=== PATIENT | female | born 1980 | race Caucasian/White ===

== ENCOUNTER → 2022-06-20 | Outpatient (CLI) | payer MEDICAID, SELFPAY ==
[2022-06-20 17:48] LABS: Absolute Lymphocyte Count 3.12 X10^3/uL (0.83-4.51); Absolute Neutrophil Count 4.9 X10^3/uL (2.0-7.7); Basophil# 0.05 X10^3/uL; Basophil% 0.5 % (0-1); Eosinophil# 0.28 X10^3/uL; Hematocrit 43.3 % (37-47); Lymphocyte # 3.12 X10^3/ul (0.83-4.51); Lymphocyte % 33.8 % (19-41); Mean Corp Hgb Conc 32.3 g/dL (32-36); Mean Platelet Vol. 11.3 fl (6.2-12.0); Monocyte# 0.83 X10^3/uL; NRBC Flagged by Analyzer 0 % (0-5); Neutrophil # 4.88 X10^3/uL (2.7-7.7); Platelet Count 300 K/mm3 (150-450); RBC Distribution Width CV 13.3 % (11.6-14.6); RBC Distribution Width SD 47.5 fl (35.1-43.9); Red Blood Count 4.51 M/mm3 (4.2-5.4); White Blood Count 9.2 K/mm3 (4.4-11.0)
[2022-06-20 18:36] LABS: ALB/GLOB Ratio 0.9 RATIO (0.9-2.4); AST(SGOT) 34 U/L (15-37); Alanine Aminotransfer ALT/SGPT 36 U/L (13-56); Albumin, Serum 3.7 g/dL (3.2-5.0); Alkaline Phosphatase 77 U/L (45-117); Anion Gap 5 (5-15); BUN 14 mg/dL (7-18); BUN/Creat Ratio 19.5 RATIO (10-20); Calcium,Total 9.3 mg/dL (8.5-10.1); Chloride 110 mmol/L (98-107); Creatinine, Serum 0.72 mg/dL (0.55-1.02); EST Glomerular Filtration Rate 94 mL/min (>60); Est Glom Filt Rate - Afr Amer 114 mL/min (>60); Glucose 98 mg/dL (74-106); Protein, Total 7.7 g/dL (6.4-8.2); Sodium Level 140 mmol/L (136-145)
[2022-06-23 19:06] LABS: HCV Quant. RNA PCR HCV Not Detected IU/mL (.)
== END | disposition home or self-care (01) ==
LOC: MFPLAB 14:47
PROVIDERS: PCP Family Medicine; Referring Provider Family Medicine; Visit Provider Family Medicine
DX: B18.2 Chronic viral hepatitis C (principal)
CPT/HCPCS: 36415; 80053; 85025; 87522; 87902

== ENCOUNTER → 2022-07-03 | Outpatient (CLI) | payer MEDICAID, SELFPAY ==
[2022-07-05 19:07] LABS: HCV Quant. RNA PCR HCV Not Detected IU/mL (.)
== END | disposition home or self-care (01) ==
LOC: MFPLAB 14:07
PROVIDERS: PCP Family Medicine; Visit Provider Family Medicine
DX: B18.2 Chronic viral hepatitis C (principal)
CPT/HCPCS: 36415; 87522

== ENCOUNTER → 2022-07-30 | Outpatient (CLI) | payer MEDICAID, SELFPAY ==
--- NOTE | 2022-07-31 05:45 | PFTCOMP_ITS ---
COMPLETE PULMONARY FUNCTION TEST INTERPRETATION Brief HPI: Patient is a 42-year-old female, currently under the care of Sofy Hampton, who presents to [facility] for complete pulmonary function tests secondary to diagnosis of asthma. Respiratory therapist reports good effort and reproducible results. Interpretation: Forced expiration spirometry shows no large airways obstructive ventilatory defect with an FEV1 of 85% predicted. There is no significant bronchodilator response by strict ATS criteria. Spirograms are of good quality and plateau normally. The respiratory flow volume loop shows a normal pattern. Lung volumes by body plethysmography show a normal total lung capacity at 5.67 L, 97% predicted. All other lung volumes are within normal limits. Diffusion capacity by carbon monoxide is normal at 115% predicted. The airway resistance is slightly elevated. No previous pulmonary function tests were available for review. Impression: These pulmonary function tests are grossly within normal limits.
== END | disposition home or self-care (01) ==
PROVIDERS: PCP Family Medicine; Referring Provider Family Medicine; Visit Provider Family Medicine
DX: J45.909 Unspecified asthma, uncomplicated (principal)
CPT/HCPCS: 94060; 94726; 94729

== ENCOUNTER 2023-12-28 22:05 | Emergency (ER) | payer BC, MEDICAID, SELFPAY ==
[2023-12-28 22:07] VITALS: BP 152/79; PULSE 75; RESP 16; TEMP 37; O2SAT 97; BMI 22.8
--- NOTE | 2023-12-28 22:34 | ED.VIS.LOWEX ---
HPI History of Present Illness Chief Complaint: Wound Narrative Narrative: 43-year-old female past medical history of heroin addiction undergoing Suboxone treatment, presents with redness and swelling to her right thigh on the lateral aspect. She states she has had this intermittently over the last few months. She went to her primary care provider and they put her on a round of antibiotics which cleared it up. It returned a month later, so she received a second dose of antibiotics. She states that it resolved after that, and she last took antibiotics approximately 1 month ago. Over the last week, she has had continued use of heroin and injecting into her legs. She states she has not injected into the site for quite some time but is unsure. She presents with reported subjective fever, and redness to the lateral hospital SPECT of her right thigh. [facility] Medical History Anxiety Substance abuse Depression Home Medications ?Medication ?Instructions ?Recorded ?Last Taken ?Type albuterol sulfate 90 mcg/actuation 1 puff inhalation Q6H PRN PRN 02/27/13 Unknown History aerosol inhaler (Ventolin HFA) Wheezing fluticasone 250 mcg-salmeterol 50 1 puff inhalation BID 02/27/13 07/21/13 08:00 History mcg/dose blistr powdr for inhalation (Advair Diskus) sumatriptan succinate 50 mg tablet 50 mg PO .X1 PRN 07/23/13 Unknown History ondansetron 4 mg disintegrating 4 mg PO Q6H PRN PRN Nausea #10 tabs 03/27/14 Unknown Rx tablet Ibuprofen [Motrin] 800 mg PO TID PRN PRN Pain #15 tabs 04/27/14 Unknown Rx camphor-methyl salicylate-menthol 1 ea TP BID PRN Pain ##10 04/27/14 Unknown Rx topical patch (Salonpas topical patch) amoxicillin 875 mg-potassium 1 tab PO BID #20 tabs 12/28/23 Unknown Rx clavulanate 125 mg tablet Allergy/AdvReac Type Severity Reaction Status Date / Time hydromorphone HCl (From AdvReac Itching Verified 04/27/14 09:46 Dilaudid) Family History no significant family his Social History Smoking Status: Current every day smoker tobacco type: cigarettes ROS ROS ED ROS Narrative Constitutional: Reported fever, no chills. HEENT: No sore throat. No neck pain. No loss of vision. No rhinorrhea. Cardiovascular: No chest pain. No palpitations. No pedal edema. Respiratory: No cough, no shortness of breath. Abdominal: No abdominal pain. Positive nausea and vomiting when withdrawing from heroin. Genitourinary: No dysuria. No hematuria. Musculoskeletal: No myalgias. No arthralgias. Neurologic: No headaches. No dizziness. No lightheadedness. Skin: No rash. Positive redness lateral right thigh. Multiple areas on bilateral legs of skin excoriation and itching with some areas red. Psychiatric: No depression. No anxiety. EXAM Physical Exam Narrative Exam Narrative: Afebrile. Vital signs noted. Regular rate and rhythm. Lungs are clear to auscultation bilaterally. Abdomen soft and nontender with normoactive bowel sounds. Inspection of the right thigh does reveal an erythematous area with a central area of excoriation, no fluctuance. She has full range of motion of her joints. There are multiple areas on her bilateral legs that appear excoriated, some with minimal surrounding erythema. Const Vital Signs: 12/28/23 22:07 12/28/23 22:51 Temperature 98.6 F 98.6 F Temperature Source Temporal Pulse Rate 75 77 Respiratory Rate 16 16 Blood Pressure 152/79 H 152/79 H Blood Pressure Mean 103 103 Pulse Ox 97 98 Oxygen Delivery Method Room Air MDM MDM MDM Narrative Medical decision making narrative: Patient is already undergoing outpatient detox from heroin and she states she has a Suboxone. Earlier this morning, she was having nausea and vomiting but was unsure if she should take her Suboxone. She did last inject heroin earlier this afternoon. Regarding her right thigh, I feel this is more of a cellulitis, I do not feel she has a drainable abscess. I have very low suspicion for DVT or superficial thrombophlebitis. She does not have swelling of her inner thigh or her entire legs so I do not think DVT, there is no palpable superficial venous thrombosis. She states that she was placed on Augmentin previously and cephalexin twice a day. She was given her first dose of Augmentin here in the emergency department and prescription written to take twice a day for the next 10 days. She will follow-up with her primary care provider. Return instructions to the emergency department were reviewed. Disposition is discharged home in stable condition. History & Record Review Discussion w/independent historian: Patient Discharge Plan Triage Chief Complaint: Wound ED Provider: Mich Breaux Dx/Rx/DC Orders Clinical Impression: Cellulitis of right thigh, Heroin addiction Instructions: ED Cellulitis, ED Opiate Abuse Prescriptions: New amoxicillin-pot clavulanate 875-125 mg tablet 1 tab PO BID Qty: 20 0RF No Action fluticasone propion-salmeterol [Advair Diskus] 1 PUFF inhaler 1 puff inhalation BID Patient Comments: asthma albuterol sulfate [Ventolin HFA] 1 INHALER inhaler 1 puff inhalation Q6H PRN PRN (Reason: Wheezing) Patient Comments: asthma sumatriptan succinate 50 MG tablet 50 mg PO .X1 PRN ondansetron 4 MG tablet 4 mg PO Q6H PRN PRN (Reason: Nausea) Qty: 10 0RF camphor-methyl salicyl-menthol [Salonpas] 1 EACH adhesive patch,medicated 1 ea TP BID PRN (Reason: Pain) Qty: 10 0RF Ibuprofen [Motrin] 800 MG tablet 800 mg PO TID PRN PRN (Reason: Pain) Qty: 15 0RF Stand Alone Forms: ED Work / School Excuse Primary Care Provider: Noni Pablo Activity Restrictions/Additional Instructions: Take antibiotics as directed. Follow-up with your primary care provider. Return with sustained high fever, increased redness of your legs, new or worsening symptoms. Continue your Suboxone as previously directed. Print Language: Danish Disposition Disposition: Home, Self Care Discharge Date/Time: 12/28/23 22:52
[2023-12-28] MEDS: Amox/Clavulanate 875 MG Tablet PO (22:38)
[2023-12-28 22:51] VITALS: BP 152/79; PULSE 77; RESP 16; TEMP 37; O2SAT 98
== END 2023-12-28 22:52 | disposition home or self-care (01) ==
LOC: ED 22:49
PROVIDERS: Emergency Provider Emergency Medicine; PCP Family Medicine; Visit Provider Emergency Medicine
DX: L03.115 Cellulitis of right lower limb (principal); F11.10 Opioid abuse, uncomplicated; F17.210 Nicotine dependence, cigarettes, uncomplicated
CPT/HCPCS: 99282

== ENCOUNTER 2024-06-23 10:08 | Outpatient (RCR) | payer MEDICAID, SELFPAY ==
[2024-06-23 10:28] VITALS: BP 132/98; PULSE 83; RESP 16; TEMP 36.3; BMI 24.6
--- NOTE | 2024-06-23 12:05 | WC ---
Multiple wounds to both legs, collagen hydrogel and 4x4 gauze applied to all sores.
--- NOTE | 2024-06-23 15:00 | WC ---
PHOTO 06/23/2024 BLE
--- NOTE | 2024-06-23 15:03 | WC ---
PHOTO 06/23/24 RIGHT LATERAL CALF
--- NOTE | 2024-06-23 15:04 | WC ---
PHOTO 06/23/24 RIGHT LOWER [place] CLUSTER
--- NOTE | 2024-06-23 15:04 | WC ---
PHOTO 06/23/24 RIGHT LATERAL CALF
--- NOTE | 2024-06-23 15:06 | WC ---
PHOTO RIGHT SUP [place] 06/23/24
--- NOTE | 2024-06-23 15:06 | WC ---
PHOTO 06/23/24 RIGHT [facility] KNEE
--- NOTE | 2024-06-23 15:07 | WC ---
PHOTO 06/23/24 RIGHT LATERAL KNEE
--- NOTE | 2024-06-23 15:08 | WC ---
PHOTO 06/23/24 RIGHT LATERAL LOWER THIGH
--- NOTE | 2024-06-23 15:08 | WC ---
PHOTO 06/23/24 RIGHT THIGH
--- NOTE | 2024-06-23 15:09 | WC ---
PHOTO RIGHT SUP THIGH
--- NOTE | 2024-06-23 15:10 | WC ---
PHOTO 06/23/24 LEFT LATERAL [place]
--- NOTE | 2024-06-23 15:10 | WC ---
PHOTO 06/23/24 LEFT UPPER [place] CLUSTER
--- NOTE | 2024-06-23 15:11 | WC ---
PHOTO 06/23/24 LEFT LATERAL KNEE
--- NOTE | 2024-06-23 15:11 | WC ---
PHOTO 06/23/24 LEFT SUPER[facility] KNEE
--- NOTE | 2024-06-23 15:12 | WC ---
PHOTO 06/23/24 LEFT LATERAL THIGH
--- NOTE | 2024-06-23 15:13 | WC ---
PHOTO 06/23/24 LEFT [facility]
--- NOTE | 2024-06-23 15:13 | WC ---
PHOTO 06/23/24 LEFT [facility] CALF
--- NOTE | 2024-06-23 15:14 | WC ---
PHOTO 06/23/24 LEFT [facility] CALF
--- NOTE | 2024-06-27 18:32 | PCM.WC.HP ---
History of Present Illness Date of Service: 06/23/24 Chief Complaint: Multiple necrotic ulcerations in the lower extremities bilaterally History of Wound: This is a 44-year-old female who presented with multiple necrotic ulcerations in both lower extremities. She states that these have been present for several months. She stated that she had been evaluated recently at the [facility] by Dr. Boni Lambert, a specialist in cardiovascular medicine. The patient stated that she has had similar ulcerations on her upper extremities, but these have subsequently healed. The patient has a history of heroin addiction, and admits to injecting heroin for several years in the past, though claims to have overcome her addiction as of January 2024. When questioned, she indicated that her usual sites of injection wearing her arms, but that she had also occasionally used injection sites in her legs. The patient describes a hospitalization approximately 1 year ago, the description of which suggests she was treated for septicemia/sepsis. The patient also admits to smoking approximately 7 cigarettes/day. She also vapes. 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 Tobacco abuse counseling Anxiety Substance abuse Depression Home Medications ?Medication ?Instructions ?Recorded ?Last Taken ?Type albuterol sulfate 90 mcg/actuation 1 puff inhalation Q6H PRN PRN 02/27/13 Unknown History aerosol inhaler (Ventolin HFA) Wheezing sumatriptan succinate 50 mg tablet 50 mg PO .X1 PRN 07/23/13 Unknown History buspirone 5 mg tablet 5 mg PO TID 06/23/24 Unknown History clonidine HCl 0.1 mg tablet 0.1 mg PO BID 06/23/24 Unknown History escitalopram oxalate 20 mg tablet 20 mg PO DAILY 06/23/24 Unknown History polyethylene glycol 3350 17 17 g PO QWEEK PRN constipation 06/23/24 Unknown History gram/dose oral powder telmisartan 40 mg tablet 20 mg PO DAILY 06/23/24 Unknown History zolpidem 5 mg tablet 5 mg PO QHS 06/23/24 Unknown History Allergy/AdvReac Type Severity Reaction Status Date / Time hydromorphone HCl (From AdvReac Itching Verified 06/23/24 11:24 Dilaudid) Surgical History History of D&C History of tonsillectomy Social History Smoking Status: Current every day smoker tobacco type: cigarettes Vital Signs Vital Signs Vital Signs: Weight Weight: 162 lb Body Mass Index (BMI) 24.6 Physical Exam Const alert, oriented x3, no apparent distress, average body habitus, no limitations and well nourished Constitutional Narrative: The patient's BMI is 24.6. General Appearance: cooperative, comfortable and well developed Orientation / Consciousness: awake, oriented to person, oriented to place and oriented to time Exam Limitations: no limitations HEENT normocephalic and head/scalp atraumatic Head and Scalp: normal to inspection, normocephalic and atraumatic Face and Sinus: normal facial exam Nose: external nose normal External Ear: external ears normal Eyes EOMs intact bilaterally General Eye: normal appearance of both eyes Resp normal respiratory effort, normal air movement, no retractions and no use of accessory muscles Effort and Inspection: able to speak in complete sentences Extremity no calf tenderness General Extremity: Negative for clubbing or cyanosis Skin Wound Narrative: Numerous ulcerations are noted in both lower extremities. They are generally small in size. Most appear to extend through all layers of the dermis and into the subcutaneous tissues. Most demonstrate frankly necrotic tissue within. Many demonstrate a rim of erythema, suggestive of cellulitis. Ulcer margins are generally not well beveled. Dimensions and locations of the ulcerations are documented elsewhere. Photographic documentation has also been undertaken. Hair: normal Neuro oriented x3, CN's II-XII intact bilaterally, moves all extremities, no focal motor deficits and no sensory deficits noted Sensorium / Orientation: awake, alert, oriented to person, oriented to place, oriented to time and orientation impaired Speech: speech normal Psych Appearance: grossly normal and appropriate Attitude: calm Activity / Motor Behavior: appropriate eye contact Speech: normal speech Mood & Affect: euthymic mood Thought Process: normal thought process Thought Content: normal thought content Attention / Concentration: attention grossly intact Debridement Note Debridement Note Wound debrided: Right lower extremity ulcerations Laterality: Right Type of Debridement: Excisional debridement Anesthesia Used: 5% Lidocaine Gel and Cetacaine Depth: Down to and including healthy tissue and in the subcutaneous layer Percentage of wound debrided: 100 Instrument Used: 5mm curette Tissue Removed: Frankly necrotic tissue, eschar, and bioburden Severity: Fat Layer Exposed Amount of bleeding with debridement: Mild Bleeding Controlled with: Compression and gauze Patient tolerated procedure: Patient tolerated procedure well Debridement Free Text: Using a sterile, disposable 5 mm curette several of the right lower extremity ulcerations were debrided. However, the presence of frankly tissue was highly resistant to the debridement. Additionally, the presence of multiple ulcerations precluded debridement of all ulcerations at the time of the patient's initial visit. It is intended that collagenase Santyl will be prescribed to initiate the enzymatic debridement of these multiple ulcerations, which will likely render subsequent mechanical debridements more feasible. Swabs were obtained of 2 separate and distinct wounds for culture and sensitivity for aerobic and anaerobic bacteria. Post-Debridement Measurements and Additional Note: Post-Debridement Measurements/Treatment - Nurse 1 - General Ulcer Assessment Start: 06/23/24 10:28 Freq: Status: Active Protocol: [id number] Activity Type Activity Date Activity User E-sign Co-sign Detail Recorded Client Recorded Date Recorded By Document 06/23/24 10:28 [facility] [id number] 06/23/24 11:24 [facility] 06/23/24 10:28 - Today's Visit Information Type of service Initial Visit Arrival Mode Ambulatory Transfer Assistance None Patient Identification Verified (Name & Yes ) Patient Requires Transmission-Based No Precautions Height and Weight Height 5 ft 8 in Weight 162 lb Weight in Pounds 162.0 lbs Body Mass Index (BMI) 24.6 BMI Classification Normal Vital Signs Temperature (97.8 F-99.1 F) 97.3 F L Temperature Source Temporal Pulse Rate (60-100) 83 Pulse Location Monitor Respiratory Rate (12-18) 16 Respiratory rate source Observation Oxygen Delivery Method Room Air Blood Pressure (90/60-120/80) 132/98 H Blood Pressure Mean 109 Source Monitor Position Sitting Blood Pressure Location Left Arm History Since Last Visit- (Skip if this is Patient's initial visit) Left Footwear Regular Shoe Right Footwear Regular Shoe Pain Scale: 0-10 Numeric Is Patient Pain Free? Yes Communication Assessment Preferred language Urdu Patient Insurance Clerk Required No Able to Read Yes Able to Write Yes Communication Tools None Right Hearing Abillity Normal Left Hearing Abillity Normal Visual Assistive Devices Glasses, Contacts Teaching Assessment Preferences Verbal,Written, Audio/Visual, Demonstration Barriers to Learning None Readiness To Learn Excellent Willingness to Engage in Self Management High Activies Readiness to Engage in Self Management High Activities Anxiety Level Calm Cooperation Cooperative Perception Coherent Interest in Health Problem Asks Questions Education Importance Acknowledges Need Does Patient Smoke tobacco or other No substances Smoking Status Current every day smoker Is Patient Diabetic No Functional Assessment Recent Decline in Ability to Perform Denies Any Declines 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 Cultural/Holiness Needs that may affect No Treatment Plan Teaching: Wound Center *Welcome to the Wound Center -Person Taught Patient -Teaching Method Discussion -Response to teaching Verbalize Understanding WC - Nurse 1 - General Ulcer Measurement Start: 06/23/24 10:28 Freq: Status: Active Protocol: Activity Type Activity Date Activity User E-sign Co-sign Detail Recorded Client Recorded Date Recorded By Document 06/23/24 10:28 [facility] [id number] 06/23/24 11:24 [facility] Edit Result 06/23/24 10:28 [facility] (1) [id number] 06/23/24 11:47 [facility] (1) #16 L Upper Calf Med - Current Size (cm) - Length => 0.6 - Current Size (cm) - Width => 0.4 - Current Size (cm) - Depth => 0.3 - Total Square Cm => 0.24 - Date of Last Picture (Recall this => 06/23/24 field) - Photo Taken => Yes - Tunneling => No - Undermining/Tunneling => No - Circular Undermining => No - Exudate Amt => None Present - Wound Margin => Distinct, Outline => Attached - Granulation Amt => None Present (0%) - Slough/Fibrin => Yes - Necrosis Amt => Large (67-100%) - Necrotic Tissue Type => Eschar - Texture (Cherelle-wound Skin Appearance) => Assessed - Moisture (Cherelle-wound Skin Appearance) => Assessed - Color (Cherelle-wound Skin Appearance) => Assessed - Temperature (Cherelle-wound Skin => No Abnormality (Pt Appearance) => Warm) - Tenderness on Palpation (Cherelle-wound => Yes Skin Appearance) - Ulcer Cleansing => Soap and Water - Foul Odor after Cleansing => No - Anesthetic Used => 5% Lidocaine Gel #15 L Med Thigh - Current Size (cm) - Length => 0.9 - Current Size (cm) - Width => 0.9 - Current Size (cm) - Depth => 0.2 - Total Square Cm => 0.81 - Date of Last Picture (Recall this => 06/23/24 field) - Photo Taken => Yes - Tunneling => No - Undermining/Tunneling => No - Circular Undermining => No - Exudate Amt => None Present - Wound Margin => Distinct, Outline => Attached - Granulation Amt => None Present (0%) - Slough/Fibrin => Yes - Necrosis Amt => Large (67-100%) - Necrotic Tissue Type => Eschar - Texture (Cherelle-wound Skin Appearance) => Assessed,Scarring - Moisture (Cherelle-wound Skin Appearance) => Assessed - Color (Cherelle-wound Skin Appearance) => Assessed,Erythema - Temperature (Cherelle-wound Skin => No Abnormality (Pt Appearance) => Warm) - Tenderness on Palpation (Cherelle-wound => Yes Skin Appearance) - Ulcer Cleansing => Soap and Water - Foul Odor after Cleansing => No - Anesthetic Used => 5% Lidocaine Gel #14 L Lat Thigh - Current Size (cm) - Length => 0.4 - Current Size (cm) - Width => 0.3 - Current Size (cm) - Depth => 0.1 - Total Square Cm => 0.12 - Date of Last Picture (Recall this => 06/23/24 field) - Photo Taken => Yes - Tunneling => No - Undermining/Tunneling => No - Circular Undermining => No - Exudate Amt => None Present - Wound Margin => Distinct, Outline => Attached - Granulation Amt => None Present (0%) - Slough/Fibrin => Yes - Necrosis Amt => Large (67-100%) - Necrotic Tissue Type => Eschar - Texture (Cherelle-wound Skin Appearance) => Assessed,Scarring - Moisture (Cherelle-wound Skin Appearance) => Assessed - Color (Cherelle-wound Skin Appearance) => Assessed,Erythema - Temperature (Cherelle-wound Skin => No Abnormality (Pt Appearance) => Warm) - Tenderness on Palpation (Cherelle-wound => No Skin Appearance) - Ulcer Cleansing => Soap and Water - Foul Odor after Cleansing => No - Anesthetic Used => 5% Lidocaine Gel #13 L Knee Sup - Current Size (cm) - Length => 0.8 - Current Size (cm) - Width => 0.3 - Current Size (cm) - Depth => 0.2 - Total Square Cm => 0.24 - Date of Last Picture (Recall this => 06/23/24 field) - Photo Taken => Yes - Tunneling => No - Undermining/Tunneling => No - Circular Undermining => No - Exudate Amt => None Present - Wound Margin => Distinct, Outline => Attached - Granulation Amt => None Present (0%) - Slough/Fibrin => Yes - Necrosis Amt => Large (67-100%) - Necrotic Tissue Type => Eschar - Texture (Cherelle-wound Skin Appearance) => Assessed,Scarring - Moisture (Cherelle-wound Skin Appearance) => Assessed - Color (Cherelle-wound Skin Appearance) => Assessed,Erythema - Temperature (Cherelle-wound Skin => No Abnormality (Pt Appearance) => Warm) - Tenderness on Palpation (Cherelle-wound => No Skin Appearance) - Ulcer Cleansing => Soap and Water - Foul Odor after Cleansing => No - Anesthetic Used => 5% Lidocaine Gel #12 L Lat Knee - Current Size (cm) - Length => 0.4 - Current Size (cm) - Width => 0.3 - Current Size (cm) - Depth => 0.2 - Total Square Cm => 0.12 - Date of Last Picture (Recall this => 06/23/24 field) - Photo Taken => Yes - Tunneling => No - Undermining/Tunneling => No - Circular Undermining => No - Exudate Amt => None Present - Wound Margin => Distinct, Outline => Attached - Granulation Amt => None Present (0%) - Slough/Fibrin => Yes - Necrosis Amt => Large (67-100%) - Necrotic Tissue Type => Eschar - Texture (Cherelle-wound Skin Appearance) => Assessed,Scarring - Moisture (Cherelle-wound Skin Appearance) => Assessed - Color (Cherelle-wound Skin Appearance) => Assessed,Erythema - Temperature (Cherelle-wound Skin => No Abnormality (Pt Appearance) => Warm) - Tenderness on Palpation (Cherelle-wound => Yes Skin Appearance) - Ulcer Cleansing => Soap and Water - Foul Odor after Cleansing => No - Anesthetic Used => 5% Lidocaine Gel #11 L Upper Walker Cluster - Current Size (cm) - Length => 9 - Current Size (cm) - Width => 5.8 - Current Size (cm) - Depth => 0.3 - Total Square Cm => 52.2 - Date of Last Picture (Recall this => 06/23/24 field) - Photo Taken => Yes - Tunneling => No - Undermining/Tunneling => No - Circular Undermining => No - Exudate Amt => None Present - Wound Margin => Distinct, Outline => Attached - Granulation Amt => None Present (0%) - Slough/Fibrin => Yes - Necrosis Amt => Large (67-100%) - Necrotic Tissue Type => Eschar - Texture (Cherelle-wound Skin Appearance) => Assessed,Scarring - Moisture (Cherelle-wound Skin Appearance) => Assessed - Color (Cherelle-wound Skin Appearance) => Assessed,Erythema - Temperature (Cherelle-wound Skin => No Abnormality (Pt Appearance) => Warm) - Tenderness on Palpation (Cherelle-wound => Yes Skin Appearance) - Ulcer Cleansing => Soap and Water - Foul Odor after Cleansing => No - Anesthetic Used => 5% Lidocaine Gel #10 L Lat Walker - Current Size (cm) - Length => 1.7 - Current Size (cm) - Width => 1.2 - Current Size (cm) - Depth => 0.3 - Total Square Cm => 2.04 - Date of Last Picture (Recall this => 06/23/24 field) - Photo Taken => Yes - Tunneling => No - Undermining/Tunneling => No - Circular Undermining => No - Exudate Amt => None Present - Wound Margin => Distinct, Outline => Attached - Granulation Amt => None Present (0%) - Slough/Fibrin => Yes - Necrosis Amt => Large (67-100%) - Necrotic Tissue Type => Eschar - Texture (Cherelle-wound Skin Appearance) => Assessed,Scarring - Moisture (Cherelle-wound Skin Appearance) => Assessed - Color (Cherelle-wound Skin Appearance) => Assessed,Erythema - Temperature (Cherelle-wound Skin => No Abnormality (Pt Appearance) => Warm) - Tenderness on Palpation (Cherelle-wound => Yes Skin Appearance) - Ulcer Cleansing => Soap and Water - Foul Odor after Cleansing => No - Anesthetic Used => 5% Lidocaine Gel #9 R Sup Thigh - Current Size (cm) - Length => 0.3 - Current Size (cm) - Width => 0.3 - Current Size (cm) - Depth => 0.1 - Total Square Cm => 0.09 - Date of Last Picture (Recall this => 06/23/24 field) - Photo Taken => Yes - Tunneling => No - Undermining/Tunneling => No - Circular Undermining => No - Exudate Amt => None Present - Wound Margin => Distinct, Outline => Attached - Granulation Amt => None Present (0%) - Slough/Fibrin => Yes - Necrosis Amt => Large (67-100%) - Necrotic Tissue Type => Eschar - Texture (Cherelle-wound Skin Appearance) => Assessed,Scarring - Moisture (Cherelle-wound Skin Appearance) => Assessed - Color (Cherelle-wound Skin Appearance) => Assessed,Erythema - Temperature (Cherelle-wound Skin => No Abnormality (Pt Appearance) => Warm) - Tenderness on Palpation (Cherelle-wound => Yes Skin Appearance) - Ulcer Cleansing => Soap and Water - Foul Odor after Cleansing => No - Anesthetic Used => 5% Lidocaine Gel #8 R Thigh - Current Size (cm) - Length => 0.5 - Current Size (cm) - Width => 0.5 - Current Size (cm) - Depth => 0.2 - Total Square Cm => 0.25 - Date of Last Picture (Recall this => 06/23/24 field) - Photo Taken => Yes - Tunneling => No - Undermining/Tunneling => No - Circular Undermining => No - Exudate Amt => None Present - Wound Margin => Distinct, Outline => Attached - Granulation Amt => None Present (0%) - Slough/Fibrin => Yes - Necrosis Amt => Large (67-100%) - Necrotic Tissue Type => Eschar - Texture (Cherelle-wound Skin Appearance) => Assessed,Scarring - Moisture (Cherelle-wound Skin Appearance) => Assessed - Color (Cherelle-wound Skin Appearance) => Assessed,Erythema - Temperature (Cherelle-wound Skin => No Abnormality (Pt Appearance) => Warm) - Tenderness on Palpation (Cherelle-wound => Yes Skin Appearance) - Ulcer Cleansing => Soap and Water - Foul Odor after Cleansing => No - Anesthetic Used => 5% Lidocaine Gel #7 R Lower Lat Thigh - Current Size (cm) - Length => 1.4 - Current Size (cm) - Width => 0.6 - Current Size (cm) - Depth => 0.2 - Total Square Cm => 0.84 - Date of Last Picture (Recall this => 06/23/24 field) - Photo Taken => Yes - Epithelialization => None Present - Tunneling => No - Undermining/Tunneling => No - Circular Undermining => No - Exudate Amt => Small - Exudate Type => Serosanguineous - Wound Margin => Distinct, Outline => Attached - Granulation Amt => Small (1-33%) - Granulation Quality => Red - Slough/Fibrin => Yes - Necrosis Amt => Large (67-100%) - Necrotic Tissue Type => Eschar - Texture (Cherelle-wound Skin Appearance) => Assessed,Scarring - Moisture (Cherelle-wound Skin Appearance) => Assessed - Color (Cherelle-wound Skin Appearance) => Assessed,Erythema - Temperature (Cherelle-wound Skin => No Abnormality (Pt Appearance) => Warm) - Tenderness on Palpation (Cherelle-wound => Yes Skin Appearance) - Ulcer Cleansing => Soap and Water - Foul Odor after Cleansing => No - Anesthetic Used => 5% Lidocaine Gel #6 R Lat Knee - Current Size (cm) - Length => 0.1 - Current Size (cm) - Width => 0.1 - Current Size (cm) - Depth => 0.1 - Total Square Cm => 0.01 - Date of Last Picture (Recall this => 06/23/24 field) - Photo Taken => Yes - Tunneling => No - Undermining/Tunneling => No - Circular Undermining => No - Exudate Amt => None Present - Wound Margin => Distinct, Outline => Attached - Granulation Amt => None Present (0%) - Slough/Fibrin => Yes - Necrosis Amt => Large (67-100%) - Necrotic Tissue Type => Eschar - Texture (Cherelle-wound Skin Appearance) => Assessed,Scarring - Moisture (Cherelle-wound Skin Appearance) => Assessed - Color (Cherelle-wound Skin Appearance) => Assessed,Erythema - Temperature (Cherelle-wound Skin => No Abnormality (Pt Appearance) => Warm) - Tenderness on Palpation (Cherelle-wound => Yes Skin Appearance) - Ulcer Cleansing => Soap and Water - Foul Odor after Cleansing => No - Anesthetic Used => 5% Lidocaine Gel #5 R Med Knee - Current Size (cm) - Length => 0.1 - Current Size (cm) - Width => 0.1 - Current Size (cm) - Depth => 0.1 - Total Square Cm => 0.01 - Date of Last Picture (Recall this => 06/23/24 field) - Photo Taken => Yes - Tunneling => No - Undermining/Tunneling => No - Circular Undermining => No - Exudate Amt => Small - Exudate Type => Serosanguineous - Wound Margin => Distinct, Outline => Attached - Granulation Amt => Large (67-100%) - Granulation Quality => Red - Slough/Fibrin => Yes - Necrosis Amt => Small (1-33%) - Necrotic Tissue Type => Adherent Slough - Texture (Cherelle-wound Skin Appearance) => Assessed,Scarring - Moisture (Cherelle-wound Skin Appearance) => Assessed - Color (Cherelle-wound Skin Appearance) => Assessed - Temperature (Cherelle-wound Skin => No Abnormality (Pt Appearance) => Warm) - Tenderness on Palpation (Cherelle-wound => No Skin Appearance) - Ulcer Cleansing => Soap and Water - Foul Odor after Cleansing => No - Anesthetic Used => 5% Lidocaine Gel #4R Sup Walker - Current Size (cm) - Length => 0.2 - Current Size (cm) - Width => 0.2 - Current Size (cm) - Depth => 0.2 - Total Square Cm => 0.04 - Date of Last Picture (Recall this => 06/23/24 field) - Photo Taken => Yes - Tunneling => No - Undermining/Tunneling => No - Circular Undermining => No - Exudate Amt => None Present - Wound Margin => Distinct, Outline => Attached - Granulation Amt => None Present (0%) - Slough/Fibrin => Yes - Necrosis Amt => Large (67-100%) - Necrotic Tissue Type => Eschar - Texture (Cherelle-wound Skin Appearance) => Assessed - Moisture (Cherelle-wound Skin Appearance) => Assessed - Color (Cherelle-wound Skin Appearance) => Assessed,Erythema - Temperature (Cherelle-wound Skin => No Abnormality (Pt Appearance) => Warm) - Tenderness on Palpation (Cherelle-wound => Yes Skin Appearance) - Ulcer Cleansing => Soap and Water - Foul Odor after Cleansing => No - Anesthetic Used => 5% Lidocaine Gel #3 R. Lat Walker Cluster - Current Size (cm) - Length => 3.2 - Current Size (cm) - Width => 0.8 - Current Size (cm) - Depth => 0.4 - Total Square Cm => 2.56 - Date of Last Picture (Recall this => 06/23/24 field) - Photo Taken => Yes - Tunneling => No - Undermining/Tunneling => No - Circular Undermining => No - Exudate Amt => None Present - Wound Margin => Distinct, Outline => Attached - Granulation Amt => None Present (0%) - Slough/Fibrin => Yes - Necrosis Amt => Large (67-100%) - Necrotic Tissue Type => Eschar - Texture (Cherelle-wound Skin Appearance) => Assessed,Scarring - Moisture (Cherelle-wound Skin Appearance) => Assessed - Color (Cherelle-wound Skin Appearance) => Assessed,Erythema - Temperature (Cherelle-wound Skin => No Abnormality (Pt Appearance) => Warm) - Tenderness on Palpation (Cherelle-wound => No Skin Appearance) - Ulcer Cleansing => Soap and Water - Foul Odor after Cleansing => No - Anesthetic Used => 5% Lidocaine Gel #2 R Lower Walker Cluster - Current Size (cm) - Length => 4.6 - Current Size (cm) - Width => 1.9 - Current Size (cm) - Depth => 0.2 - Total Square Cm => 8.74 - Date of Last Picture (Recall this => 06/23/24 field) - Photo Taken => Yes - Epithelialization => None Present - Tunneling => No - Undermining/Tunneling => No - Circular Undermining => No - Exudate Amt => None Present - Wound Margin => Distinct, Outline => Attached - Granulation Amt => None Present (0%) - Slough/Fibrin => Yes - Necrosis Amt => Large (67-100%) - Necrotic Tissue Type => Eschar - Texture (Cherelle-wound Skin Appearance) => Assessed - Moisture (Cherelle-wound Skin Appearance) => Assessed - Color (Cherelle-wound Skin Appearance) => Assessed - Temperature (Cherelle-wound Skin => No Abnormality (Pt Appearance) => Warm) - Tenderness on Palpation (Cherelle-wound => Yes Skin Appearance) - Ulcer Cleansing => Soap and Water - Foul Odor after Cleansing => No - Anesthetic Used => 5% Lidocaine Gel #1 R Lat Calf - Current Size (cm) - Length => 1 - Current Size (cm) - Width => 1.1 - Current Size (cm) - Depth => 0.6 - Total Square Cm => 1.1 - Date of Last Picture (Recall this => 06/23/24 field) - Photo Taken => Yes - Epithelialization => None Present - Tunneling => No - Undermining/Tunneling => No - Circular Undermining => No - Exudate Amt => None Present - Wound Margin => Distinct, Outline => Attached - Granulation Amt => None Present (0%) - Slough/Fibrin => Yes - Necrosis Amt => Large (67-100%) - Necrotic Tissue Type => Adherent Slough - Texture (Cherelle-wound Skin Appearance) => Assessed - Moisture (Cherelle-wound Skin Appearance) => Assessed - Color (Cherelle-wound Skin Appearance) => Assessed,Erythema - Temperature (Cherelle-wound Skin => No Abnormality (Pt Appearance) => Warm) - Tenderness on Palpation (Cherelle-wound => Yes Skin Appearance) - Ulcer Cleansing => Soap and Water - Foul Odor after Cleansing => No - Anesthetic Used => 5% Lidocaine Gel 06/23/24 10:28 Wound Center Nurse 1 #16 L Upper Calf Med -Combined with other wound No -Current Size (cm) - Length 0.6 -Current Size (cm) - Width 0.4 -Current Size (cm) - Depth 0.3 -Total Square Cm 0.24 -Date of Last Picture (Recall this 06/23/24 field) -Photo Taken Yes -Tunneling No -Undermining/Tunneling No -Circular Undermining No -Exudate Amt None Present -Wound Margin Distinct, Outline Attached -Granulation Amt None Present (0 %) -Slough/Fibrin Yes -Necrosis Amt Large (67-100%) -Necrotic Tissue Type Eschar -Texture (Cherelle-wound Skin Appearance) Assessed -Moisture (Cherelle-wound Skin Appearance) Assessed -Color (Cherelle-wound Skin Appearance) Assessed -Temperature (Cherelle-wound Skin No Abnormality Appearance) (Pt Warm) -Tenderness on Palpation (Cherelle-wound Yes Skin Appearance) -Ulcer Cleansing Soap and Water -Foul Odor after Cleansing No -Anesthetic Used 5% Lidocaine Gel #15 L Med Thigh -Combined with other wound No -Current Size (cm) - Length 0.9 -Current Size (cm) - Width 0.9 -Current Size (cm) - Depth 0.2 -Total Square Cm 0.81 -Date of Last Picture (Recall this 06/23/24 field) -Photo Taken Yes -Tunneling No -Undermining/Tunneling No -Circular Undermining No -Exudate Amt None Present -Wound Margin Distinct, Outline Attached -Granulation Amt None Present (0 %) -Slough/Fibrin Yes -Necrosis Amt Large (67-100%) -Necrotic Tissue Type Eschar -Texture (Cherelle-wound Skin Appearance) Assessed, Scarring -Moisture (Cherelle-wound Skin Appearance) Assessed -Color (Cherelle-wound Skin Appearance) Assessed, Erythema -Temperature (Cherelle-wound Skin No Abnormality Appearance) (Pt Warm) -Tenderness on Palpation (Cherelle-wound Yes Skin Appearance) -Ulcer Cleansing Soap and Water -Foul Odor after Cleansing No -Anesthetic Used 5% Lidocaine Gel #14 L Lat Thigh -Combined with other wound No -Current Size (cm) - Length 0.4 -Current Size (cm) - Width 0.3 -Current Size (cm) - Depth 0.1 -Total Square Cm 0.12 -Date of Last Picture (Recall this 06/23/24 field) -Photo Taken Yes -Tunneling No -Undermining/Tunneling No -Circular Undermining No -Exudate Amt None Present -Wound Margin Distinct, Outline Attached -Granulation Amt None Present (0 %) -Slough/Fibrin Yes -Necrosis Amt Large (67-100%) -Necrotic Tissue Type Eschar -Texture (Cherelle-wound Skin Appearance) Assessed, Scarring -Moisture (Cherelle-wound Skin Appearance) Assessed -Color (Cherelle-wound Skin Appearance) Assessed, Erythema -Temperature (Cherelle-wound Skin No Abnormality Appearance) (Pt Warm) -Tenderness on Palpation (Cherelle-wound No Skin Appearance) -Ulcer Cleansing Soap and Water -Foul Odor after Cleansing No -Anesthetic Used 5% Lidocaine Gel #13 L Knee Sup -Combined with other wound No -Current Size (cm) - Length 0.8 -Current Size (cm) - Width 0.3 -Current Size (cm) - Depth 0.2 -Total Square Cm 0.24 -Date of Last Picture (Recall this 06/23/24 field) -Photo Taken Yes -Tunneling No -Undermining/Tunneling No -Circular Undermining No -Exudate Amt None Present -Wound Margin Distinct, Outline Attached -Granulation Amt None Present (0 %) -Slough/Fibrin Yes -Necrosis Amt Large (67-100%) -Necrotic Tissue Type Eschar -Texture (Cherelle-wound Skin Appearance) Assessed, Scarring -Moisture (Cherelle-wound Skin Appearance) Assessed -Color (Cherelle-wound Skin Appearance) Assessed, Erythema -Temperature (Cherelle-wound Skin No Abnormality Appearance) (Pt Warm) -Tenderness on Palpation (Cherelle-wound No Skin Appearance) -Ulcer Cleansing Soap and Water -Foul Odor after Cleansing No -Anesthetic Used 5% Lidocaine Gel #12 L Lat Knee -Combined with other wound No -Current Size (cm) - Length 0.4 -Current Size (cm) - Width 0.3 -Current Size (cm) - Depth 0.2 -Total Square Cm 0.12 -Date of Last Picture (Recall this 06/23/24 field) -Photo Taken Yes -Tunneling No -Undermining/Tunneling No -Circular Undermining No -Exudate Amt None Present -Wound Margin Distinct, Outline Attached -Granulation Amt None Present (0 %) -Slough/Fibrin Yes -Necrosis Amt Large (67-100%) -Necrotic Tissue Type Eschar -Texture (Cherelle-wound Skin Appearance) Assessed, Scarring -Moisture (Cherelle-wound Skin Appearance) Assessed -Color (Cherelle-wound Skin Appearance) Assessed, Erythema -Temperature (Cherelle-wound Skin No Abnormality Appearance) (Pt Warm) -Tenderness on Palpation (Cherelle-wound Yes Skin Appearance) -Ulcer Cleansing Soap and Water -Foul Odor after Cleansing No -Anesthetic Used 5% Lidocaine Gel #11 L Upper Walker Cluster -Combined with other wound No -Current Size (cm) - Length 9 -Current Size (cm) - Width 5.8 -Current Size (cm) - Depth 0.3 -Total Square Cm 52.2 -Date of Last Picture (Recall this 06/23/24 field) -Photo Taken Yes -Tunneling No -Undermining/Tunneling No -Circular Undermining No -Exudate Amt None Present -Wound Margin Distinct, Outline Attached -Granulation Amt None Present (0 %) -Slough/Fibrin Yes -Necrosis Amt Large (67-100%) -Necrotic Tissue Type Eschar -Texture (Cherelle-wound Skin Appearance) Assessed, Scarring -Moisture (Cherelle-wound Skin Appearance) Assessed -Color (Cherelle-wound Skin Appearance) Assessed, Erythema -Temperature (Cherelle-wound Skin No Abnormality Appearance) (Pt Warm) -Tenderness on Palpation (Cherelle-wound Yes Skin Appearance) -Ulcer Cleansing Soap and Water -Foul Odor after Cleansing No -Anesthetic Used 5% Lidocaine Gel #10 L Lat Walker -Combined with other wound No -Current Size (cm) - Length 1.7 -Current Size (cm) - Width 1.2 -Current Size (cm) - Depth 0.3 -Total Square Cm 2.04 -Date of Last Picture (Recall this 06/23/24 field) -Photo Taken Yes -Tunneling No -Undermining/Tunneling No -Circular Undermining No -Exudate Amt None Present -Wound Margin Distinct, Outline Attached -Granulation Amt None Present (0 %) -Slough/Fibrin Yes -Necrosis Amt Large (67-100%) -Necrotic Tissue Type Eschar -Texture (Cherelle-wound Skin Appearance) Assessed, Scarring -Moisture (Cherelle-wound Skin Appearance) Assessed -Color (Cherelle-wound Skin Appearance) Assessed, Erythema -Temperature (Cherelle-wound Skin No Abnormality Appearance) (Pt Warm) -Tenderness on Palpation (Cherelle-wound Yes Skin Appearance) -Ulcer Cleansing Soap and Water -Foul Odor after Cleansing No -Anesthetic Used 5% Lidocaine Gel #9 R Sup Thigh -Combined with other wound No -Current Size (cm) - Length 0.3 -Current Size (cm) - Width 0.3 -Current Size (cm) - Depth 0.1 -Total Square Cm 0.09 -Date of Last Picture (Recall this 06/23/24 field) -Photo Taken Yes -Tunneling No -Undermining/Tunneling No -Circular Undermining No -Exudate Amt None Present -Wound Margin Distinct, Outline Attached -Granulation Amt None Present (0 %) -Slough/Fibrin Yes -Necrosis Amt Large (67-100%) -Necrotic Tissue Type Eschar -Texture (Cherelle-wound Skin Appearance) Assessed, Scarring -Moisture (Cherelle-wound Skin Appearance) Assessed -Color (Cherelle-wound Skin Appearance) Assessed, Erythema -Temperature (Cherelle-wound Skin No Abnormality Appearance) (Pt Warm) -Tenderness on Palpation (Cherelle-wound Yes Skin Appearance) -Ulcer Cleansing Soap and Water -Foul Odor after Cleansing No -Anesthetic Used 5% Lidocaine Gel #8 R Thigh -Combined with other wound No -Current Size (cm) - Length 0.5 -Current Size (cm) - Width 0.5 -Current Size (cm) - Depth 0.2 -Total Square Cm 0.25 -Date of Last Picture (Recall this 06/23/24 field) -Photo Taken Yes -Tunneling No -Undermining/Tunneling No -Circular Undermining No -Exudate Amt None Present -Wound Margin Distinct, Outline Attached -Granulation Amt None Present (0 %) -Slough/Fibrin Yes -Necrosis Amt Large (67-100%) -Necrotic Tissue Type Eschar -Texture (Cherelle-wound Skin Appearance) Assessed, Scarring -Moisture (Cherelle-wound Skin Appearance) Assessed -Color (Cherelle-wound Skin Appearance) Assessed, Erythema -Temperature (Cherelle-wound Skin No Abnormality Appearance) (Pt Warm) -Tenderness on Palpation (Cherelle-wound Yes Skin Appearance) -Ulcer Cleansing Soap and Water -Foul Odor after Cleansing No -Anesthetic Used 5% Lidocaine Gel #7 R Lower Lat Thigh -Combined with other wound No -Current Size (cm) - Length 1.4 -Current Size (cm) - Width 0.6 -Current Size (cm) - Depth 0.2 -Total Square Cm 0.84 -Date of Last Picture (Recall this 06/23/24 field) -Photo Taken Yes -Epithelialization None Present -Tunneling No -Undermining/Tunneling No -Circular Undermining No -Exudate Amt Small -Exudate Type Serosanguineous -Wound Margin Distinct, Outline Attached -Granulation Amt Small (1-33%) -Granulation Quality Red -Slough/Fibrin Yes -Necrosis Amt Large (67-100%) -Necrotic Tissue Type Eschar -Texture (Cherelle-wound Skin Appearance) Assessed, Scarring -Moisture (Cherelle-wound Skin Appearance) Assessed -Color (Cherelle-wound Skin Appearance) Assessed, Erythema -Temperature (Cherelle-wound Skin No Abnormality Appearance) (Pt Warm) -Tenderness on Palpation (Cherelle-wound Yes Skin Appearance) -Ulcer Cleansing Soap and Water -Foul Odor after Cleansing No -Anesthetic Used 5% Lidocaine Gel #6 R Lat Knee -Combined with other wound No -Current Size (cm) - Length 0.1 -Current Size (cm) - Width 0.1 -Current Size (cm) - Depth 0.1 -Total Square Cm 0.01 -Date of Last Picture (Recall this 06/23/24 field) -Photo Taken Yes -Tunneling No -Undermining/Tunneling No -Circular Undermining No -Exudate Amt None Present -Wound Margin Distinct, Outline Attached -Granulation Amt None Present (0 %) -Slough/Fibrin Yes -Necrosis Amt Large (67-100%) -Necrotic Tissue Type Eschar -Texture (Cherelle-wound Skin Appearance) Assessed, Scarring -Moisture (Cherelle-wound Skin Appearance) Assessed -Color (Cherelle-wound Skin Appearance) Assessed, Erythema -Temperature (Cherelle-wound Skin No Abnormality Appearance) (Pt Warm) -Tenderness on Palpation (Cherelle-wound Yes Skin Appearance) -Ulcer Cleansing Soap and Water -Foul Odor after Cleansing No -Anesthetic Used 5% Lidocaine Gel #5 R Med Knee -Combined with other wound No -Current Size (cm) - Length 0.1 -Current Size (cm) - Width 0.1 -Current Size (cm) - Depth 0.1 -Total Square Cm 0.01 -Date of Last Picture (Recall this 06/23/24 field) -Photo Taken Yes -Tunneling No -Undermining/Tunneling No -Circular Undermining No -Exudate Amt Small -Exudate Type Serosanguineous -Wound Margin Distinct, Outline Attached -Granulation Amt Large (67-100%) -Granulation Quality Red -Slough/Fibrin Yes -Necrosis Amt Small (1-33%) -Necrotic Tissue Type Adherent Slough -Texture (Cherelle-wound Skin Appearance) Assessed, Scarring -Moisture (Cherelle-wound Skin Appearance) Assessed -Color (Cherelle-wound Skin Appearance) Assessed -Temperature (Cherelle-wound Skin No Abnormality Appearance) (Pt Warm) -Tenderness on Palpation (Cherelle-wound No Skin Appearance) -Ulcer Cleansing Soap and Water -Foul Odor after Cleansing No -Anesthetic Used 5% Lidocaine Gel #4R Sup Walker -Combined with other wound No -Current Size (cm) - Length 0.2 -Current Size (cm) - Width 0.2 -Current Size (cm) - Depth 0.2 -Total Square Cm 0.04 -Date of Last Picture (Recall this 06/23/24 field) -Photo Taken Yes -Tunneling No -Undermining/Tunneling No -Circular Undermining No -Exudate Amt None Present -Wound Margin Distinct, Outline Attached -Granulation Amt None Present (0 %) -Slough/Fibrin Yes -Necrosis Amt Large (67-100%) -Necrotic Tissue Type Eschar -Texture (Cherelle-wound Skin Appearance) Assessed -Moisture (Cherelle-wound Skin Appearance) Assessed -Color (Cherelle-wound Skin Appearance) Assessed, Erythema -Temperature (Cherelle-wound Skin No Abnormality Appearance) (Pt Warm) -Tenderness on Palpation (Cherelle-wound Yes Skin Appearance) -Ulcer Cleansing Soap and Water -Foul Odor after Cleansing No -Anesthetic Used 5% Lidocaine Gel #3 R. Lat Walker Cluster -Combined with other wound No -Current Size (cm) - Length 3.2 -Current Size (cm) - Width 0.8 -Current Size (cm) - Depth 0.4 -Total Square Cm 2.56 -Date of Last Picture (Recall this 06/23/24 field) -Photo Taken Yes -Tunneling No -Undermining/Tunneling No -Circular Undermining No -Exudate Amt None Present -Wound Margin Distinct, Outline Attached -Granulation Amt None Present (0 %) -Slough/Fibrin Yes -Necrosis Amt Large (67-100%) -Necrotic Tissue Type Eschar -Texture (Cherelle-wound Skin Appearance) Assessed, Scarring -Moisture (Cherelle-wound Skin Appearance) Assessed -Color (Cherelle-wound Skin Appearance) Assessed, Erythema -Temperature (Cherelle-wound Skin No Abnormality Appearance) (Pt Warm) -Tenderness on Palpation (Cherelle-wound No Skin Appearance) -Ulcer Cleansing Soap and Water -Foul Odor after Cleansing No -Anesthetic Used 5% Lidocaine Gel #2 R Lower Walker Cluster -Combined with other wound No -Current Size (cm) - Length 4.6 -Current Size (cm) - Width 1.9 -Current Size (cm) - Depth 0.2 -Total Square Cm 8.74 -Date of Last Picture (Recall this 06/23/24 field) -Photo Taken Yes -Epithelialization None Present -Tunneling No -Undermining/Tunneling No -Circular Undermining No -Exudate Amt None Present -Wound Margin Distinct, Outline Attached -Granulation Amt None Present (0 %) -Slough/Fibrin Yes -Necrosis Amt Large (67-100%) -Necrotic Tissue Type Eschar -Texture (Cherelle-wound Skin Appearance) Assessed -Moisture (Cherelle-wound Skin Appearance) Assessed -Color (Cherelle-wound Skin Appearance) Assessed -Temperature (Cherelle-wound Skin No Abnormality Appearance) (Pt Warm) -Tenderness on Palpation (Cherelle-wound Yes Skin Appearance) -Ulcer Cleansing Soap and Water -Foul Odor after Cleansing No -Anesthetic Used 5% Lidocaine Gel #1 R Lat Calf -Combined with other wound No -Current Size (cm) - Length 1 -Current Size (cm) - Width 1.1 -Current Size (cm) - Depth 0.6 -Total Square Cm 1.1 -Date of Last Picture (Recall this 06/23/24 field) -Photo Taken Yes -Epithelialization None Present -Tunneling No -Undermining/Tunneling No -Circular Undermining No -Exudate Amt None Present -Wound Margin Distinct, Outline Attached -Granulation Amt None Present (0 %) -Slough/Fibrin Yes -Necrosis Amt Large (67-100%) -Necrotic Tissue Type Adherent Slough -Texture (Cherelle-wound Skin Appearance) Assessed -Moisture (Cherelle-wound Skin Appearance) Assessed -Color (Cherelle-wound Skin Appearance) Assessed, Erythema -Temperature (Cherelle-wound Skin No Abnormality Appearance) (Pt Warm) -Tenderness on Palpation (Cherelle-wound Yes Skin Appearance) -Ulcer Cleansing Soap and Water -Foul Odor after Cleansing No -Anesthetic Used 5% Lidocaine Gel Right Calf (cm) 36.2 Right Ankle (cm) 21 Left Calf (cm) 36 Left Ankle (cm) 22 - Nurse 2 - General Ulcer CM Notes Start: 06/23/24 10:28 Freq: Status: Active Protocol: Activity Type Activity Date Activity User E-sign Co-sign Detail Recorded Client Recorded Date Recorded By Document 06/23/24 11:44 DS [id number] 06/23/24 12:40 DS 06/23/24 11:44 Wound Center Nurse 2 #16 L Upper Calf Med -Time 11:44 -Correct Patient Yes -Procedure Performed No -Post Debridement (cm) - Length 0.6 -Post Debridement (cm) - Width 0.4 -Post Debridement (cm) - Depth 0.3 -Total Square (Post) (cm) 0.24 -Area of Debridement (cm) - Length 0.6 -Area of Debridement (cm) - Width 0.4 -Total Square (Area) (cm) 0.24 -Tunneling No -Undermining/Tunneling No -Circular Undermining No -Wound/Ulcer Outcome Not Healed #15 L Med Thigh -Time 11:44 -Correct Patient Yes -Procedure Performed No -Post Debridement (cm) - Length 0.9 -Post Debridement (cm) - Width 0.9 -Post Debridement (cm) - Depth 0.2 -Total Square (Post) (cm) 0.81 -Area of Debridement (cm) - Length 0.9 -Area of Debridement (cm) - Width 0.9 -Total Square (Area) (cm) 0.81 -Tunneling No -Undermining/Tunneling No -Circular Undermining No -Wound/Ulcer Outcome Not Healed #14 L Lat Thigh -Time 11:44 -Correct Patient Yes -Procedure Performed No -Post Debridement (cm) - Length 0.4 -Post Debridement (cm) - Width 0.3 -Post Debridement (cm) - Depth 0.1 -Total Square (Post) (cm) 0.12 -Area of Debridement (cm) - Length 0.4 -Area of Debridement (cm) - Width 0.3 -Total Square (Area) (cm) 0.12 -Tunneling No -Undermining/Tunneling No -Circular Undermining No -Wound/Ulcer Outcome Not Healed #13 L Knee Sup -Time 11:44 -Correct Patient Yes -Procedure Performed No -Post Debridement (cm) - Length 0.8 -Post Debridement (cm) - Width 0.3 -Post Debridement (cm) - Depth 0.2 -Total Square (Post) (cm) 0.24 -Area of Debridement (cm) - Length 0.8 -Area of Debridement (cm) - Width 0.3 -Total Square (Area) (cm) 0.24 -Tunneling No -Undermining/Tunneling No -Circular Undermining No -Wound/Ulcer Outcome Not Healed #12 L Lat Knee -Time 11:44 -Correct Patient Yes -Procedure Performed No -Post Debridement (cm) - Length 0.4 -Post Debridement (cm) - Width 0.3 -Post Debridement (cm) - Depth 0.2 -Total Square (Post) (cm) 0.12 -Area of Debridement (cm) - Length 0.4 -Area of Debridement (cm) - Width 0.3 -Total Square (Area) (cm) 0.12 -Tunneling No -Undermining/Tunneling No -Circular Undermining No -Wound/Ulcer Outcome Not Healed #11 L Upper Walker Cluster -Time 11:44 -Correct Patient Yes -Procedure Performed No -Post Debridement (cm) - Length 9.0 -Post Debridement (cm) - Width 5.8 -Post Debridement (cm) - Depth 0.3 -Total Square (Post) (cm) 52.20 -Area of Debridement (cm) - Length 9.0 -Area of Debridement (cm) - Width 5.8 -Total Square (Area) (cm) 52.20 -Tunneling No -Undermining/Tunneling No -Circular Undermining No -Wound/Ulcer Outcome Not Healed #10 L Lat Walker -Time 11:44 -Correct Patient Yes -Procedure Performed No -Post Debridement (cm) - Length 1.7 -Post Debridement (cm) - Width 1.2 -Post Debridement (cm) - Depth 0.3 -Total Square (Post) (cm) 2.04 -Area of Debridement (cm) - Length 1.7 -Area of Debridement (cm) - Width 1.2 -Total Square (Area) (cm) 2.04 -Tunneling No -Undermining/Tunneling No -Circular Undermining No -Wound/Ulcer Outcome Not Healed #9 R Sup Thigh -Time 11:40 -Correct Patient Yes -Procedure Performed No -Post Debridement (cm) - Length 0.3 -Post Debridement (cm) - Width 0.3 -Post Debridement (cm) - Depth 0.1 -Total Square (Post) (cm) 0.09 -Area of Debridement (cm) - Length 0.3 -Area of Debridement (cm) - Width 0.3 -Total Square (Area) (cm) 0.09 -Tunneling No -Undermining/Tunneling No -Circular Undermining No -Wound/Ulcer Outcome Not Healed #8 R Thigh -Time 11:40 -Correct Patient Yes -Procedure Performed No -Post Debridement (cm) - Length 0.5 -Post Debridement (cm) - Width 0.5 -Post Debridement (cm) - Depth 0.2 -Total Square (Post) (cm) 0.25 -Area of Debridement (cm) - Length 0.5 -Area of Debridement (cm) - Width 0.5 -Total Square (Area) (cm) 0.25 -Tunneling No -Undermining/Tunneling No -Circular Undermining No -Wound/Ulcer Outcome Not Healed #7 R Lower Lat Thigh -Time 11:40 -Correct Patient Yes -Procedure Performed No -Post Debridement (cm) - Length 1.4 -Post Debridement (cm) - Width 0.6 -Post Debridement (cm) - Depth 0.2 -Total Square (Post) (cm) 0.84 -Area of Debridement (cm) - Length 1.4 -Area of Debridement (cm) - Width 0.6 -Total Square (Area) (cm) 0.84 -Tunneling No -Undermining/Tunneling No -Circular Undermining No -Wound/Ulcer Outcome Not Healed #6 R Lat Knee -Time 11:40 -Correct Patient Yes -Procedure Performed No -Post Debridement (cm) - Length 0.1 -Post Debridement (cm) - Width 0.1 -Post Debridement (cm) - Depth 0.1 -Total Square (Post) (cm) 0.01 -Area of Debridement (cm) - Length 0.1 -Area of Debridement (cm) - Width 0.1 -Total Square (Area) (cm) 0.01 -Tunneling No -Undermining/Tunneling No -Circular Undermining No -Wound/Ulcer Outcome Not Healed #5 R Med Knee -Time 11:40 -Correct Patient Yes -Procedure Performed No -Post Debridement (cm) - Length 0.1 -Post Debridement (cm) - Width 0.1 -Post Debridement (cm) - Depth 0.1 -Total Square (Post) (cm) 0.01 -Area of Debridement (cm) - Length 0.1 -Area of Debridement (cm) - Width 0.1 -Total Square (Area) (cm) 0.01 -Tunneling No -Undermining/Tunneling No -Circular Undermining No -Wound/Ulcer Outcome Not Healed #4R Sup Walker -Time 11:40 -Correct Patient Yes -Correct Side, Site, Position Yes -Correct Procedure Yes -Procedure Performed Yes -Type of Procedure Debridement -Clinical Debridement Subcutaneous -Tissue Removed Subcutaneous -Post Debridement (cm) - Length 0.2 -Post Debridement (cm) - Width 0.2 -Post Debridement (cm) - Depth 0.2 -Total Square (Post) (cm) 0.04 -Area of Debridement (cm) - Length 0.2 -Area of Debridement (cm) - Width 0.2 -Total Square (Area) (cm) 0.04 -Tunneling No -Undermining/Tunneling No -Circular Undermining No -Wound/Ulcer Outcome Not Healed -Ulcer Cleansing Rinsed/ Irrigated with Saline -Foul Odor after Cleansing No -Bioengineered Tissue No -Bleeding Controlled with Pressure -Treatment Response Procedure Not Tolerated Well -Debridement - Subq, 1st 20sq cm Yes #3 RRubin Walker Cluster -Time 11:40 -Correct Patient Yes -Procedure Performed No -Post Debridement (cm) - Length 3.2 -Post Debridement (cm) - Width 0.8 -Post Debridement (cm) - Depth 0.4 -Total Square (Post) (cm) 2.56 -Area of Debridement (cm) - Length 3.2 -Area of Debridement (cm) - Width 0.8 -Total Square (Area) (cm) 2.56 -Tunneling No -Undermining/Tunneling No -Circular Undermining No -Wound/Ulcer Outcome Not Healed #2 R Lower Walker Cluster -Time 11:40 -Correct Patient Yes -Correct Side, Site, Position Yes -Correct Procedure Yes -Procedure Performed Yes -Type of Procedure Debridement -Clinical Debridement Subcutaneous -Tissue Removed Subcutaneous -Post Debridement (cm) - Length 4.6 -Post Debridement (cm) - Width 1.9 -Post Debridement (cm) - Depth 0.2 -Total Square (Post) (cm) 8.74 -Area of Debridement (cm) - Length 4.6 -Area of Debridement (cm) - Width 1.9 -Total Square (Area) (cm) 8.74 -Tunneling No -Undermining/Tunneling No -Circular Undermining No -Wound/Ulcer Outcome Not Healed -Ulcer Cleansing Rinsed/ Irrigated with Saline -Foul Odor after Cleansing No -Bioengineered Tissue No -Bleeding Controlled with Pressure -Treatment Response Procedure Not Tolerated Well -Debridement - Subq, 1st 20sq cm No #1 R Lat Calf -Time 11:40 -Correct Patient Yes -Correct Side, Site, Position Yes -Correct Procedure Yes -Procedure Performed Yes -Type of Procedure Debridement -Clinical Debridement Subcutaneous -Tissue Removed Subcutaneous -Post Debridement (cm) - Length 1.0 -Post Debridement (cm) - Width 1.1 -Post Debridement (cm) - Depth 0.6 -Total Square (Post) (cm) 1.10 -Area of Debridement (cm) - Length 1.0 -Area of Debridement (cm) - Width 1.1 -Total Square (Area) (cm) 1.10 -Tunneling No -Undermining/Tunneling No -Circular Undermining No -Wound/Ulcer Outcome Not Healed -Ulcer Cleansing Rinsed/ Irrigated with Saline -Foul Odor after Cleansing No -Bioengineered Tissue No -Bleeding Controlled with Pressure -Treatment Response Procedure Not Tolerated Well -Debridement - Subq, 1st 20sq cm No Pain Scale: 0-10 Numeric Is Patient Pain Free? No RLE -Description Sharp,Aching -Intensity 8 -Duration (hours) Chronic -Pain Aggravating Factors Debridement -Alleviating Factors/Interventions Medication, Distraction, Emotional Support -Comments [facility] USED WC - Nurse 3 - General Ulcer D/C NN Start: 06/23/24 10:28 Freq: Status: Active Protocol: Activity Type Activity Date Activity User E-sign Co-sign Detail Recorded Client Recorded Date Recorded By Document 06/23/24 12:03 GM [id number] 06/23/24 12:05 GM Edit Result 06/23/24 12:03 GM (1) [id number] 06/23/24 12:14 GM (1) right - Lotion applied to leg before => No compression wrap - Compression Wrap => Adolfo Wrap left - Lotion applied to leg before => No compression wrap - Compression Wrap => Adolfo Wrap 06/23/24 12:03 Wound Care Center Nurse 3 #16 L Upper Calf Med -Ulcer Cleansing Soap and Water -Foul Odor after Cleansing No -Negative Pressure Wound Therapy N/A -Primary Dressing Applied C Hydrogel -Primary Dressing Covered/Secured with Dry Gauze & Roll Gauze, Secured with Tape -Hydrogel 1 #9 R Sup Thigh -Ulcer Cleansing Soap and Water -Foul Odor after Cleansing No -Negative Pressure Wound Therapy N/A -Primary Dressing Applied C Hydrogel -Primary Dressing Covered/Secured with Dry Gauze & Roll Gauze, Secured with Tape -Hydrogel 1 right -Lotion applied to leg before No compression wrap -Compression Wrap Adolfo Wrap left -Lotion applied to leg before No compression wrap -Compression Wrap Adolfo Wrap Pain Scale: 0-10 Numeric Is Patient Pain Free? 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 exposed: CODE(S): L97.922 - Non-pressure chronic ulcer of unspecified part of left lower leg with fat layer exposed (3) Skin necrosis: CODE(S): I96 - Gangrene, not elsewhere classified (4) IBS (irritable bowel syndrome): (5) Endometriosis: CODE(S): N80.9 - Endometriosis, unspecified (6) ADD (attention deficit disorder): CODE(S): F98.8 - Other specified behavioral and emotional disorders with onset usually occurring in childhood and adolescence (7) Nicotine dependence: CODE(S): F17.200 - Nicotine dependence, unspecified, uncomplicated (8) Anxiety: CODE(S): F41.9 - Anxiety disorder, unspecified (9) Depression: CODE(S): F32.9 - Major depressive disorder, single episode, unspecified (10) Asthma: CODE(S): J45.909 - Unspecified asthma, uncomplicated (11) Seizures: (12) Tobacco abuse counseling: CODE(S): Z71.6 - Tobacco abuse counseling (13) History of tonsillectomy: CODE(S): Z90.89 - Acquired absence of other organs (14) History of D&C: CODE(S): Z98.890 - Other specified postprocedural states PLAN: Plan This is a 44-year-old female who has a known history of heroin abuse by means of injection. She has also known to have been hospitalized approximately 1 year ago with septicemia/sepsis. We are to request records from the [facility], including those from Dr. Boni Lambert, who is a specialist in cardiovascular medicine. It appears as though the patient may have undergone an echocardiogram in the past, as well as other diagnostic tests. Swab cultures have been obtained for culture and sensitivity. Results will be awaited. We are to implement the use of collagenase Santyl topically to each of the patient's ulcerations, and a prescription has been provided as well as a coupon to mitigate expense. Routine laboratory studies are to be obtained. A lower extremity arterial ultrasound will be obtained to assess for the presence of pseudoaneurysm or other intraluminal sources of athero-, thrombo-, or septic embolism. There is a high degree of suspicion that the patient's multiple lower extremity ulcerations are due to embolic phenomenon, in consideration that she is a former heroin drug user by means of injection. Consideration will also be given to obtaining an echocardiogram as well, to determine whether infectious endocarditis and intracardiac vegetations may account for the patient's multiple lower extremity ulcerations. An alternative etiology may be a vasculitis such as leukocytoclastic vasculitis. The patient has been encouraged to discontinue her smoking habit. She has also been advised to optimize her nutritional intake. She is to return in 1 week for reevaluation. Total time: 45-minute
== END 2024-07-19 23:59 | disposition home or self-care (01) ==
LOC: WC 10:08
PROVIDERS: PCP Family Medicine; Referring Provider Family Medicine; Visit Provider Surgery
DX: I96 Gangrene, not elsewhere classified (principal); L97.912 Non-pressure chronic ulcer of unspecified part of right lower leg with fat layer exposed; L97.922 Non-pressure chronic ulcer of unspecified part of left lower leg with fat layer exposed; F11.21 Opioid dependence, in remission; F41.9 Anxiety disorder, unspecified; F32.9 Major depressive disorder, single episode, unspecified; F98.8 Other specified behavioral and emotional disorders with onset usually occurring in childhood and adolescence; J45.909 Unspecified asthma, uncomplicated; K58.9 Irritable bowel syndrome, unspecified; Z71.6 Tobacco abuse counseling; F17.210 Nicotine dependence, cigarettes, uncomplicated; F17.290 Nicotine dependence, other tobacco product, uncomplicated; Z79.899 Other long term (current) drug therapy
CPT/HCPCS: 11042; 87070; 87075; 87077; 87186; 87205; 99214; G0463

== ENCOUNTER 2024-10-30 22:49 | Inpatient (IN) | payer MEDICAID, SELFPAY ==
[2024-10-30 22:40] VITALS: BP 117/88; PULSE 93; RESP 18; TEMP 36.7; O2SAT 100
[2024-10-30 22:42] VITALS: BMI 20.4
--- OUTSIDE RECORDS SUMMARY | 2024-10-30 22:44 | XMS RPT_ITS | CCD ---
Author Organization [facility] Care Team Providers Care Road Tester Name Role Phone UNKNOWN, PROVIDER Unavailable Unavailable NICKI NGUYEN Unavailable Unavailable TESSIE, JULIAN Unavailable Unavailable TESSIE, JULIAN Unavailable Unavailable GILMA ANDERSON Unavailable Unavailable Ajay Gupta Unavailable Unavailabl Ajay Mccurdy Unavailable Unavailabl e Nicki Nguyen Unavailable Unavailable Nicki Nguyen Unavailable Unavailable MATT CASTILLO Unavailable Unavailable Nicki Nguyen Unavailable Unavailable Mirella Oliva Primary Care Provider Lisa Danielson Primary Care Provider Leonardo Ashford MD Primary Care Provider Nicki Nguyen Unavailable Unavailable Unavailable Elizabeth Tapia Unavailable Konrad Hampton DO Primary Care Provider DO Konrad Hampton Primary Care Provider DO Konrad Hampton Referring Provider DO Konrad Hampton Other Provider Dr. Scotty Don Attending Provider Konrad Hampton DO Primary Care Provider MITCHELL HANNON Attending Unavailable GIAN MACDONALD Referring Unava ilable RAIKAR, KIMBERLEE Admitting Unavailable ALAHMAD, JALAA Attending Unavailable TAYLOR, JAGPRIT S Attending Unavailable KONRAD HAMPTON Primary Care Unavailable No, Physician Primary Care Provider Unavailwander Ashford MD, Leonardo Primary Care Provider Nicki Nguyen MD Unavailable Konrad Hampton DO Primary Care Provider Noni Pablo MD Primary Care Provider NO, PHYSICIAN Primary Care Unavailable LUCI, CLARENCE Referring Unavailable LUCI, CLARENCE Admitting Unavailable NO, PHYSICIAN Primary Care Unavailable EMA CALDWELL Consulting Unavailable LUCI, CLARENCE Attending Unavailable LUCI, CLARENCE Admitting Unavailable Noni Pablo MD Primary Care Provider Noni Pablo MD Referring Provider Katlyn TORREZ, Dr. Mario Valentine Attending Provider Katlyn TORREZ, Dr. Mario Valentine Other Provider Konrad Hampton DO Primary Care Provider Noni Pablo MD Primary Care Provider ANGELES, CHALON Primary Care Unavailable ALLISON, SHANTE Attending Unavailable ANGELES, CHALON Primary Care Unavailable ALLISON, SHANTE Referring Unavailable ALLISON, SHANTE Attending Unavailable Reodica, Mich Attending Unavailable Angeles, Chalon Primary Care Unavailable Angeles, Chalon Primary Care Unavailable Mario Potts Referring Unavailable Mario Potts Attending Unavailable Angeles, Chalon Primary Care Unavailable Mario Potts Attending Unavailable Angeles, Chalon Referring Unavailable Mario oPtts Attending Unavailable Angeles, Chalon Referring Unavailable Angeles, Chalon Primary Care Unavailable Allergies Allergy Classification Reported Allergen(s) Allergy Type Date of Onset Reaction(s) Facility Bee pollen (1 source) Bee pollen Drug Allergy 8 [facility] Latex (1 source) Latex Substance Allergy 8 Rash [facility] Pollen (1 source) bee pollen Substance Allergy 8 [facility] (2 sources) HYDROmorphone; Translations: [HYDROMORPHONE (BULK)] Drug Allergy 3 [facility] Other [place] [facility] (2 sources) bee pollen Propensity to adverse reactions to drug 8 [place] (4 sources) Latex; Translations: [LATEX] Propensity to adverse reactions to drug 8 Rash [place] (20 sources) Codeine; Translations: [Codeine Derivatives] Drug Allergy 1 Other (See Comments), Unknown, GI Intolerance, Other [facility] and Work Phone: (3 sources) HYDROmorphone; Translations: [hydromorphone HCl] Drug Allergy 5 [facility] (20 sources) Bee pollen Propensity to adverse reactions 8 [facility] (20 sources) HYDROmorphone Drug Allergy 3 Unknown, Itching [facility] (20 sources) Latex Propensity to adverse reactions 8 Rash [facility] (20 sources) Pollen Propensity to adverse reactions 8 [facility] (2 sources) Codeine; Translations: [CODEINE] Drug Allergy [address] [facility] Repository Medications Current Medications Medication Drug Class(es) Dates Sig (Normalized) Sig (Original) [id number] 200 actuat albuterol 0.09 mg/actuat metered dose inhaler (20 sources) beta2-Adrenergic Agonist Start: 06-21-2022 take 1 puff(s) by inhalation twice daily Ventolin HFA 108 (90 Base) MCG/ACT inhaler INHALE 1 PUFF TWICE DAILY DIRECTED 06/21/2022 Active Start: 07-31-2020 take 2 puff(s) by in halation every six hours as needed for wheezing albuterol sulfate HFA 108 (90 Base) MCG/ACT inhaler Indications: Asthma without status asthmaticus or acute exacerbation INHALE TWO PUFFS INTO THE LUNGS EVERY 6 HOURS NEEDED FOR WHEEZING 1 Inhaler 0 07/31/2020 Active Start: 01-11-2019 take 2 puff(s) by in halation every six hours as needed for wheezing albuterol sulfate HFA (PROAIR HFA) 108 (90 Base) MCG/ACT inhaler Indications: Asthma without status asthmaticus or acute exacerbation Inhale 2 puffs into the lungs every 6 hours as needed for Wheezing 2 Inhaler 4 01/11/2019 Active Start: 12-11-2018 albuterol (PRO VENTIL) nebulizer solution 2.5 mg Start: 03-30-2018 take 2 puff(s) by in halation every six hours as needed for wheezing albuterol sulfate HFA (PROAIR HFA) 108 (90 Base) MCG/ACT inhaler Indications: Asthma without status asthmaticus or acute exacerbation Inhale 2 puffs into the lungs every 6 hours as needed for Wheezing 1 Inhaler 13 03/30/2018 Active Start: 10-05-2015 take 2 puff(s) by in halation every four hours as needed for cough ProAir HFA 108 (90 Base) MCG/ACT Inhalation Aerosol Solution INHALE 2 PUFFS EVERY 4 HOURS NEEDED FOR COUGH AND WHEEZE. Quantity: 1 Refills: 0 Ordered: 05-Oct-2015 Nicki Nguyen MD Start : 05-Oct-2015 Active Start: 02-27-2013 Albuterol Sulf ate (Ventolin Hfa) 1 INHALER inhaler Active 1 NMA INHALATION EVERY 6 HOURS NEEDED as needed for Wheezing February 27, 2013 1:00am Start: 02-27-2013 take 1 puff(s) by in halation every six hours as needed Albuterol Sulfate (Ventolin Hfa) 1 INHALER inhaler Active 1 PUFF INHALATION EVERY 6 HOURS NEEDED February 27, 2013 1:00am Start: 02-27-2013 take 1 puff(s) by in halation every six hours as needed Albuterol Sulfate (Ventolin Hfa) 1 INHALER inhaler Active 1 PUFF INHALATION EVERY 6 HOURS NEEDED February 27, 2013 12:00am Start: 07-15-2012 Albuterol Sulf ate (2.5 MG/3ML) 0.083% Inhalation Nebulization Solution USE 1 UNIT DOSE EVERY 4-6 HOURS NEEDED FOR WHEEZING . Quantity: 1 Refills: 2 Ordered: 30-Jan-2021 Elizabeth Whitlock Start : 15-Jul-2012 Active Start: 02-03-2012 take 1-2 puff(s) by inhalation every four to six hours as needed Ventolin HFA 108 (90 Base) MCG/ACT Inhalation Aerosol Solution INHALE 1 TO 2 PUFFS EVERY 4 TO 6 HOURS NEEDED. Quantity: 1 Refills: 1 Ordered: 30-Jan-2021 Wimberleynatividad TOWNSENDElizabeth Start : 03-Feb-2012 Active ALBUTEROL IN Inh lizzy. Active ALBUTEROL IN Inh lizzy. 0 Active amoxicillin 875 mg oral tablet (1 source) Penicillin-class Antibacterial Start: 12-15-2020 End: 12-22-2020 Amoxicillin 875 MG Oral Tablet TAKE 1 TABLET BID. CAN BREAK TABLETS IN HALF IF EASIER TO SWALLOW. Consider taking yogurt with medication to avoid yeast infection. Quantity: 14 Refills: 0 Ordered: 15-Dec-2020 Poornima Walsh DO Start : 15-Dec-2020 End : 22-Dec-2020 Active ascorbic acid 250 mg oral tablet (17 sources) Vitamin C take 1 tablet by mouth once daily Ascorbic Acid (vitamin C) 250 MG tablet Take 250 mg by mouth daily. Active azithromycin 250 mg oral tablet (4 sources) Macrolide Antimicrobial Start: 01-11-2019 azithromycin (ZITHROMAX Z-MAGALYS) 250 MG tablet Take 2 today then 1 a day til pack is done 5 tablet 0 01/11/2019 Active Start: 07-09-2018 azithromycin ( ZITHROMAX Z-MAGALYS) 250 MG tablet Take 2 today (5 sources) Multiple Vitamins-Minerals (MULTIVITAMIN ADULT PO) Take by mouth 0 Active naproxen 500 mg oral tablet (4 sources) Nonsteroidal Anti-inflammatory Drug Start: 019 take 1 tablet by mouth twice daily as needed for pain naproxen (NAPROSYN) 500 MG tablet Take 1 tablet by mouth 2 times daily as needed for Pain 28 tablet 0 02/03/2019 Active Start: 07-22-2013 End: 07-24-2013 take 1 tablet by mouth every eight hours as needed for pain Naproxen Sodium (Aleve) 220 MG tablet Discontinued 220 mg PO EVERY 8 HOURS NEEDED as needed for Pain July 22, 2013 12:00am July 24, 2013 12:59pm 24 hr nicotine 0.583 mg/hr transdermal system (3 sources) Cholinergic Nicotinic Agonist Start: 03-27-2024 End: 04-27-2024 apply 1 dose transdermal route once daily nicotine (NICODERM CQ) 14 mg/[address] 1 (one) patch on the skin daily Start: 03/28/24. 28 patch 03/28/2024 04/27/2024 Active norethindrone 0.35 mg oral tablet (20 sources) Start: 06-28-2022 End: 08-24-2025 take 1 tablet by mouth once daily norethindrone (Micronor) 0.35 MG tablet Take 1 tablet (0.35 mg) by mouth daily. 28 tablet 12 08/24/2024 08/24/2025 Active pantoprazole 40 mg delayed release oral tablet (2 sources) Proton Pump Inhibitor Start: 03-27-2024 End: 04-10-2024 take 1 tablet by mouth once daily before breakfast pantoprazole (PROTONIX) 40 MG tablet Take 1 (one) tablet (40 mg total) by mouth every morning before breakfast for 14 days . 14 tablet 03/27/2024 04/10/2024 Active plecanatide 3 mg oral tablet (1 source) Start: 11-18-2018 take 1 tablet by mouth once daily TRULANCE 3 MG TABS TK 1 T PO D 3 11/18/2018 Active polyethylene glycol 3350 23383 mg powder for oral solution (4 sources) Osmotic Laxative Start: 06-23-2024 take 17 g by mouth every week as needed for constipation Polyethylene Glycol 3350 17 gram/dose powder Active 17 g PO EVERY WEEK as needed for constipation June 23, 2024 1:00am Start: 03-27-2024 End: 04-26-2024 polyethylene glycol (Miralax ) 17 gram/dose powder Take 17 (seventeen) g by mouth daily . 510 g 03/27/2024 04/26/2024 Active Start: 03-26-2024 End: 03-27-2024 17 g, Oral, 2 times daily, F irst dose on Fri03/26/24 at 1230, HOLD IF DIARRHEA OR LOOSE STOOLS predniSONE 10 mg oral tablet (1 source) Start: 12-11-2018 End: 12-23-2018 take 6 tablets by mouth once daily, then take 5 tablets by mouth once daily, then take 4 tablets by mouth once daily, then take 3 tablets by mouth once daily, then take 2 tablets by mouth once daily, then take 1 tablet by mouth once daily predniSONE (DELTASONE) 10 MG tablet Take 6 tablets by mouth daily for 2 days, THEN 5 tablets daily for 2 days, THEN 4 tablets daily for 2 days, THEN 3 tablets daily for 2 days, THEN 2 tablets daily for 2 days, THEN 1 tablet daily for 2 days. 42 tablet 0 12/11/2018 12/23/2018 Active PROBIOTIC PRODUCT PO (3 sources) Start: 12-11-2017 take 1 tablet by mouth once daily PROBIOTIC PRODUCT PO Take 1 tablet by mouth daily 0 12/11/2017 Active prochlorperazine 10 mg oral tablet (1 source) Phenothiazine Start: 02-03-2019 take 1 tablet by mouth every six hours as needed for nausea prochlorperazine (COMPAZINE) 10 MG tablet Take 1 tablet by mouth every 6 hours as needed (nausea) 30 tablet 0 02/03/2019 Active Start: 02-03-2019 take 1 tablet by mark th every six hours as needed for nausea prochlorperazine (COMPAZINE) 10 MG tablet Take 1 tablet by mouth every 6 hours as needed (nausea) 30 tablet 0 02/03/2019 Active risperiDONE 1 mg oral tablet (1 source) Atypical Antipsychotic Start: 07-07-2020 risperi DONE (RISPERDAL) 1 MG tablet TAKE 1/2 TABLET BY MOUTH AT BEDTIME FOR 1 WEEK. THEN TAKE 1 TAB THEREAFTER 0 07/07/2020 Active sodium chloride flush 0.9 % injection 3 mL (1 source) Start: 08-11-2020 sodium chlorid e flush 0.9 % injection 3 mL SUMAtriptan 50 mg oral tablet (19 sources) Serotonin-1b and Serotonin-1d Receptor Agonist Start: 07-23-2013 SUMAtriptan (IMITREX ) 50 MG tablet Take 1 at onset of headache, may repeat in 2 hr; max 100mg/24 hrs 9 tablet 5 07/29/2019 Active Start: 04-24-2012 SUMAtriptan Bishop ccinate 50 MG Oral Tablet TAKE DIRECTED. Quantity: 9 Refills: 1 Ordered: 30-Jan-2021 Elizabeth Whitlock Start : 24-Apr-2012 Active Start: 04-24-2012 SUMAtriptan Bishop ccinate 50 MG Oral Tablet TAKE DIRECTED. Quantity: 9 Refills: 1 Ordered: 24-Jun-2017 Nicki Nguyen MD Start : 24-Apr-2012 Active take 1 tablet by mark th once daily as needed SUMAtriptan (Imitrex) 50 MG tablet Take 50 mg by mouth daily as needed. Active telmisartan 40 mg oral tablet (6 sources) Angiotensin 2 Receptor Selam Start: 03-27-2024 End: 04-26-2024 telmisartan (MIcarDIS) 40 MG tablet 20 mg. 03/27/2024 Active 24 hr venlafaxine 150 mg extended release oral capsule (5 sources) Serotonin and Norepinephrine Reuptake Inhibitor Start: 11-16-2019 take 1 capsule by mouth once daily venlafaxine (EFFEXOR XR) 150 MG extended release capsule TAKE ONE CAPSULE BY MOUTH ONCE A DAY 0 11/16/2019 Active Start: 01-21-2018 venlafaxine (E FFEXOR XR) 75 MG extended release capsule TK 1 C PO QD 0 01/21/2018 Active zolpidem tartrate 5 mg oral tablet (4 sources) gamma-Aminobutyric Acid-ergic Agonist Start: 06-23-2024 take 1 tablet by mouth at bedtime Zolpidem 5 mg tablet Active 5 mg PO AT BEDTIME June 23, 2024 1:00am Completed/Discontinued Medications Medication Drug Class(es) Dates Sig (Normalized) Sig (Original) acetaminophen 325 mg oral tablet (5 sources) Start: 03-25-2024 End: 03-27-2024 take 1 tablet by mouth every six hours as needed for pain and headache 650 mg, Oral, Every 6 hours PRN, mild pain, fever 100.4 F or greater, headaches, Starting on Ellen 03/25/24 at 0754 Start: 07-10-2022 End: 07-10-2022 acetaminophen (Tylenol) tabl et 1,000 mg Start: 02-03-2019 End: 02-03-2019 acetaminophen (TYLENOL) tabl et 1,000 mg Start: 12-11-2018 End: 12-11-2018 acetaminophen (TYLENOL) tabl et 1,000 mg ALPRAZolam 0.25 mg oral tablet (3 sources) Benzodiazepine Start: 03-25-2024 End: 03-27-2024 take 0.25 mg by mouth twice daily as needed for anxiety 0.25 mg, Oral, 2 times daily PRN, anxiety, sleep, Starting on Ellen 03/25/24 at 0748 Start: 07-10-2022 End: 07-10-2022 ALPRAZolam (Xanax) disintegr ating tablet 0.25 mg aluminum hydroxide 40 mg/ml / magnesium hydroxide 40 mg/ml / simethicone 4 mg/ml oral suspension (1 source) Start: 03-24-2024 End: 03-27-2024 take 30 mL by mouth every four hours as needed amoxicillin 875 mg / clavulanate 125 mg oral tablet (1 source) Penicillin-class Antibacterial Start: 12-28-2023 End: 06-23-2024 Amoxicillin-Pot Clavulanate 875-125 mg tablet Discontinued 1 {tbl} PO TWICE A DAY December 28, 2023 12:00am June 23, 2024 12:25pm augmented betamethasone 0.0005 mg/mg topical ointment (2 sources) Corticosteroid Start: 12-26-2016 End: 01-30-2021 Betamethasone Dipropionate Aug 0.05 % External Ointment APPLY SPARINGLY TO AFFECTED AREA(S) TWICE DAILY Quantity: 1 Refills: 1 Ordered: 26-Dec-2016 Ezra Santana MD Start : 26-Dec-2016 End : 30-Jan-2021 Complete calcium chloride 0.0014 meq/ml / potassium chloride 0.004 meq/ml / sodium chloride 0.103 meq/ml / sodium lactate 0.028 meq/ml injectable solution (2 sources) Start: 07-10-2022 End: 07-10-2022 lactated Ringer's infusion Camphor-Methyl Salicyl-Menthol (Salonpas Patch) 1 EACH adhesive patch,medicated (2 sources) Start: 04-27-2014 End: 06-23-2024 Camphor-Methyl Salicyl-Menthol (Salonpas Patch) 1 EACH adhesive patch,medicated Discontinued 1 NMA TP TWICE A DAY as needed for Pain April 27, 2014 12:20pm June 23, 2024 12:25pm Start: 04-27-2014 Camphor-Methyl Salicyl-Menthol (Salonpas Patch) 1 EACH adhesive patch,medicated Active 1 EACH TP TWICE A DAY April 27, 2014 12:20pm cefTRIAXone (ROCEPHIN) 1000 mg in sodium chloride (NS) 0.9% 50 mL MBP (1 source) Start: 03-24-2024 End: 03-25-2024 1,000 mg, Intravenous, at 100 mL/hr, Every 24 hours, First dose on Fri03/24/24 at 1900, Indication: UTI (mild to moderate) cefTRIAXone (ROCEPHIN) 2000 mg in sodium chloride (NS) 0.9% 50 mL MBP (1 source) Start: 03-25-2024 End: 03-27-2024 2,000 mg, Intravenous, at 100 mL/hr, Every 24 hours, First dose (after last modification) on Ellen 03/25/24 at 2000, Indication: UTI (mild to moderate) cetirizine hydrochloride 10 mg oral tablet (20 sources) Histamine-1 Receptor Antagonist Start: 06-14-2015 End: 02-03-2019 take 1 tablet by mouth once daily Cetirizine HCl - 10 MG Oral Tablet TAKE ONE TABLET BY MOUTH ONE TIME DAILY Quantity: 30 Refills: 5 Ordered: 30-Jan-2021 Elizabeth Whitlock Start : 14-Jun-2015 Active Citalopram (1 source) Serotonin Reuptake Inhibitor CeleXA TABS Quantity: 0 Refills: 0 Ordered: 09-Dec-2017 DO Active 0.4 ml enoxaparin sodium 100 mg/ml prefilled syringe (1 source) Low Molecular Weight Heparin Start: 03-27-2024 End: 03-27-2024 inject 40 mg by subcutaneous injection once daily 40 mg, Subcutaneous, Daily, First dose on 03/27/24 at 0900, Administer in abdomen unless otherwise directed by prescriber. Notify physician if patient refuses., Prophylaxis Indication: VTE Prophylaxis famotidine 20 mg oral tablet (2 sources) Histamine-2 Receptor Antagonist Start: 07-10-2022 End: 07-10-2022 famotidine (Pepcid) tablet 20 mg famotidine (PEPCID) Vial 20 mg (1 source) Start: 03-24-2024 End: 03-24-2024 20 mg, Intravenous, Once, On Fri03/24/24 at 1830, For 1 dose, Aseptically dilute dose of famotidine injection with 0.9% NaCl to a total volume of either 5 ml or 10 ml and inject over 2 minutes ( Use 10mL for Neonates) fluconazole 150 mg oral tablet (2 sources) Azole Antifungal Start: 08-25-2024 End: 05-07-2025 take 1 tablet by mouth once fluconazole (Diflucan) 150 MG tablet Take 1 tablet (150 mg) by mouth Once for 1 dose. 1 tablet 08/25/2024 08/25/2024 Start: 12-08-2022 End: 12-08-2022 take 1 tablet by mouth once fluconazole (Diflucan) 150 MG tablet Take 1 tablet (150 mg) by mouth Once for 1 dose. 1 tablet 0 12/08/2022 12/08/2022 Active gabapentin 100 mg oral capsule (5 sources) Anti-epileptic Agent Start: 07-10-2022 End: 07-10-2022 gabapentin (Neurontin) capsule 100 mg Start: 07-21-2013 End: 07-24-2013 take 1 capsule by mouth three times daily Gabapentin 300 MG capsule Discontinued 300 mg PO THREE TIMES A DAY July 21, 2013 12:00am July 24, 2013 1:01pm glecaprevir 100 mg / pibrentasvir 40 mg oral tablet (1 source) Start: 05-21-2017 take 3 tablets by mouth once daily Mavyret 100-40 MG Oral Tablet TAKE 3 TABLET Daily Quantity: 90 Refills: 1 Ordered: 21-May-2017 Ajay Gupta MD Start : 21-May-2017 Active 1 ml heparin sodium, porcine 5000 unt/ml injection (1 source) Unfractionated Heparin, Anti-coagulant Start: 03-25-2024 End: 03-27-2024 inject 5000 [IU] by subcutaneous injection every eight hours 5,000 Units, Subcutaneous, Every 8 hours scheduled, First dose on Fri03/25/24 at 0600, Notify physician if patient refuses. 1 ml hydrALAZINE hydrochloride 20 mg/ml injection (2 sources) Arteriolar Vasodilator Start: 03-26-2024 End: 03-26-2024 5 mg, Intravenous, Once, On Fri03/26/24 at 0100, For 1 dose Start: 03-24-2024 End: 03-24-2024 10 mg, Intravenous, Once, On Fri03/24/24 at 1830, For 1 dose hydrOXYzine hydrochloride 25 mg oral tablet (1 source) Antihistamine Start: 03-25-2024 End: 03-27-2024 take 1 tablet by mouth every six hours as needed for anxiety 25 mg, Oral, Every 6 hours PRN, anxiety, Starting on Ellen03/25/24 at 1940 ibuprofen 800 mg oral tablet (3 sources) Nonsteroidal Anti-inflammatory Drug Start: 04-27-2014 End: 06-23-2024 take 1 tablet by mouth three times daily as needed for pain Ibuprofen (Motrin) 800 MG tablet Discontinued 800 mg PO 3 TIMES DAILY NEEDED as needed for Pain April 27, 2014 1:00am June 23, 2024 12:25pm iopamidoL (ISOVUE-370) 370 mg iodine /mL (76 %) injection 100 mL (1 source) Start: 03-26-2024 End: 03-26-2024 100 mL, Intravenous, Once in imaging, contrast, Starting on Fri03/26/24 at 1018, For 1 dose ipratropium bromide 0.2 mg/ml inhalant solution (1 source) Anticholinergic Start: 12-11-2018 End: 12-11-2018 ipratropium (ATROVENT) 0.02 % nebulizer solution 0.5 mg isopropyl alcohol 0.7 ml/ml medicated pad (2 sources) Start: 07-10-2022 End: 07-10-2022 Nozin Nasal Concrete Block Molder 62 % 1 ampule 1 ml ketorolac tromethamine 30 mg/ml cartridge (1 source) Nonsteroidal Anti-inflammatory Drug, Cyclooxygenase Inhibitor Start: 12-12-2018 End: 12-11-2018 ketorolac (TORADOL) injection 30 mg Start: 12-12-2018 End: 12-11-2018 ketorolac (TORADOL) injectio n 30 mg lactulose 667 mg/ml oral solution (1 source) Osmotic Laxative Start: 03-26-2024 End: 03-27-2024 20 g, Oral, 3 times daily, First dose on Fri03/26/24 at 1500 levETIRAcetam 500 mg oral tablet (3 sources) Start: 03-25-2024 End: 03-27-2024 take 500 mg by mouth twice daily 500 mg, Oral, 2 times daily, First dose on Fri03/25/24 at 0900 1 ml LORazepam 2 mg/ml injection (1 source) Benzodiazepine Start: 03-25-2024 End: 03-27-2024 take 1 mg intravenously every four hours as needed 1 mg, Intravenous, Every 4 hours PRN, agitation, seizures, Starting on Fri03/25/24 at 0747, VESICANT magnesium citrate 58.2 mg/ml oral solution (1 source) Start: 03-26-2024 End: 03-26-2024 take 296 mL by mouth once 296 mL, Oral, Once, On Fri03/26/24 at 1430, For 1 dose Start: 03-26-2024 End: 03-26-2024 take 296 mL by mouth once 296 mL, Oral, Once, On Fri05/27/23 at 1430, For 1 dose 100 ml magnesium sulfate 10 mg/ml injection (1 source) Start: 03-25-2024 End: 03-25-2024 1 g, Intravenous, at 100 mL/hr, Once, On Fri03/25/24 at 0900, For 1 dose, Indication: Hypomagnesemia methylPREDNISolone 125 mg injection (1 source) Corticosteroid Start: 12-12-2018 End: 12-11-2018 methylPREDNISolone sodium (SOLU-MEDROL) injection 40 mg Start: 12-12-2018 End: 12-11-2018 methylPREDNISolone sodium (S ALIVIA-MEDROL) injection 40 mg 2 ml metoclopramide 5 mg/ml injection (2 sources) Dopamine-2 Receptor Antagonist Start: 03-24-2024 End: 03-24-2024 10 mg, Intravenous, Once, On Fri03/24/24 at 1830, For 1 dose Start: 12-12-2018 End: 12-11-2018 metoclopramide (REGLAN) inje ction 10 mg metroNIDAZOLE 500 mg oral tablet (4 sources) Nitroimidazole Antimicrobial Start: 08-25-2024 End: 09-01-2024 take 1 tablet by mouth twice daily metroNIDAZOLE (Flagyl) 500 MG tablet Take 1 tablet (500 mg) by mouth 2 times daily for 7 days. 14 tablet 08/25/2024 09/01/2024 Start: 03-25-2024 End: 03-27-2024 take 500 mg intravenously every eight hours 500 mg, Intravenous, at 200 mL/hr, Every 8 hours, First dose on Fri03/25/24 at 1815, For 7 days, DO NOT REFRIGERATE, Indication: High Risk or Severity Community or Hosp Acquired Intra-abdominal Infections Start: 06-11-2022 End: 06-18-2022 take 1 tablet by mouth twice daily metroNIDAZOLE (Flagyl) 500 MG tablet Take 1 tablet (500 mg) by mouth 2 times daily for 7 days. 14 tablet 0 06/11/2022 06/18/2022 Active mirtazapine 15 mg oral tablet (7 sources) take 1 tablet by mouth once daily at bedtime Remeron 15 MG Oral Tablet TAKE 1 TABLET DAILY at bedtime Quantity: 0 Refills: 0 Ordered: 30-Jan-2021 DO Active 30 actuat mometasone furoate 0.11 mg/actuat dry powder inhaler (1 source) Corticosteroid Start: 018 take 1 puff(s) by inhalation once daily Asmanex (30 Metered Doses) 110 MCG/INH Inhalation Aerosol Powder Breath Activated USE 1 PUFF ONCE DAILY Quantity: 1 Refills: 2 Ordered: 29-Jun-2017 Nicki Nguyen MD Start : 29-Jun-2017 Active montelukast 10 mg oral tablet (16 sources) Leukotriene Receptor Antagonist Start: 017 take 1 tablet by mouth at bedtime Montelukast Sodium 10 MG Oral Tablet TAKE 1 TABLET AT BEDTIME. Quantity: 1 Refills: 5 Ordered: 30-Jan-2021 Elizabeth Whitlock Start : 30-Oct-2016 Active Naloxone (2 sources) Opioid Antagonist Start: End: take 0.4 mg intravenously every four hours as needed 0.4 mg, Intravenous, Every 4 hours PRN, opioid reversal, respiratory depression, Starting on Fri03/25/24 at 0754 Start: 03-24-2024 End: 03-24-2024 inject 2 mg by subcutaneous injection once 2 mg, Subcutaneous, Once, On Fri03/24/24 at 1545, For 1 dose, Intranasal 2 ml ondansetron 2 mg/ml injection (14 sources) Serotonin-3 Receptor Antagonist Start: 03-24-2024 End: 03-27-2024 take 4 mg intravenously every six hours as needed for nausea and vomiting 4 mg, Intravenous, Every 6 hours PRN, nausea, vomiting, Starting on Fri03/24/24 at 2034 Start: 03-24-2024 End: 03-24-2024 4 mg, Intravenous, Once, On Fri03/24/24 at 1730, For 1 dose Start: 03-08-2021 take 1 tablet by mark th four times daily as needed for nausea Ondansetron 4 MG Oral Tablet Disintegrating TAKE 1 TABLET 4 times daily PRN nausea Quantity: 20 Refills: 0 Ordered: 08-Mar-2021 Herlinda Hoyt DO Start : 08-Mar-2021 Active Start: 08-12-2020 End: 08-12-2020 ondansetron (ZOFRAN) injecti on 4 mg Start: 08-11-2020 End: 08-11-2020 ondansetron (ZOFRAN) injecti on 4 mg Start: 02-03-2019 End: 02-03-2019 ondansetron (ZOFRAN-ODT) disintegrating tablet 4 mg Start: 03-27-2014 End: 06-23-2024 take 1 tablet by mouth every six hours as needed for nausea Ondansetron 4 MG tablet Discontinued 4 mg PO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 Devices: Disposable Substance and Sexual Activity Alcohol use: No Alcohol/week: 0.0 standard drinks of alcohol Drug use: Not Currently Sexual activity: Yes Other Topics Concern Not on file Social History Narrative Not on file Social Drivers of Health Financial Resource Strain: Low Risk (06/17/2023) Received from [facility], [facility] Overall Financial Resource Strain (CARDIA) Difficulty of Paying Living Expenses: Not very hard Food Insecurity: No Food Insecurity (03/24/2024) Received from [facility] Hunger Vital Sign Worried About Running Out of Food in the Last Year: Never true Ran Out of Food in the Last Year: Never true Transportation Needs: No Transportation Needs (03/24/2024) Received from [facility] PRAPARE - Transportation Lack of Transportation (Medical): No Lack of Transportation (Non-Medical): No Physical Activity: Not on file Stress: Not on file Social Connections: Not on file Intimate Partner Violence: Not At Risk (03/24/2024) Received from [facility] Humiliation, Afraid, Rape, and Kick questionnaire Fear of Current or Ex-Partner: No Emotionally Abused: No Physically Abused: No Sexually Abused: No Housing Stability: Low Risk (03/24/2024) Received from [facility] Housing Stability Vital Sign Unable to Pay for Housing in the Last Year: No Number of Times Moved in the Last Year: 0 Homeless in the Last Year: No MEDICATIONS: Current Outpatient Medications Medication Sig Dispense Refill Ascorbic Acid (vitamin C) 250 MG tablet Take 250 mg by mouth daily. cloNIDine (Catapres) 0.1 MG tablet 0.1 mg. escitalopram (Lexapro) 20 MG tablet Take 20 mg by mouth daily. Linzess 72 MCG capsule Take 72 mcg by mouth daily. SUMAtriptan (Imitrex) 50 MG tablet Take 50 mg by mouth daily as needed. telmisartan (MIcarDIS) 40 MG tablet 20 mg. zolpidem (Ambien) 5 MG tablet Take 5 mg by mouth Nightly. ALBUTEROL IN Inhale. (Patient not taking: Reported on 08/24/2024) busPIRone (Buspar) 5 MG tablet Take 5 mg by mouth 3 times daily. cetirizine (ZyrTEC) 10 MG tablet Take by mouth. (Patient not taking: Reported on 08/24/2024) fluticasone (Flonase) 50 MCG/ACT nasal spray Use 1 (ONE) spray IN EACH NOSTRIL TWICE DAILY DIRECTED (Patient not taking: Reported on 08/24/2024) metroNIDAZOLE (Flagyl) 500 MG tablet Take 1 tablet (500 mg) by mouth 2 times daily for 7 days. 14 tablet 0 montelukast (Sing (more content not included)... Normal [facility] Culture, Anaerobic Any Sourc berkley 06-28-2024 CUAN right le medial No growth in 5 days. Normal [facility] Comment on above: Performed By: #### M 100.4001, M100.3000, M100.1999 #### [facility] Laboratory [address] [place], [address] CUAN right LE anterior No growth in 5 days. Normal [facility] Comment on above: Performed By: #### M 100.4001, M100.3000, M100.1999 #### [facility] Laboratory [address] [place], [place], [id number] Wound Ctr History AND Physic fortunato 06-27-2024 Wound Ctr History & Physical [facility] [address] [place] [address] H P Exam - Wound Care 06/27/24 1832 MR#: [id number] Acct: [id number] Name: LISA CHAUDHRY Rep #: [id number] : 1980 44 From: Mario Potts MD PCP: Dr. Noni Pablo MD Status:REG RCR Location: History of Present Illness Date of Service: 06/23/24 Chief Complaint: Multiple necrotic ulcerations in the lower extremities bilaterally History of Wound: This is a 44-year-old female who presented with multiple necrotic ulcerations in both lower extremities. She states that these have been present for several months. She stated that she had been evaluated recently at the [facility] by Dr. Boni Lambert, a specialist in cardiovascular medicine. The patient stated that she has had similar ulcerations on her upper extremities, but these have subsequently healed. The patient has a history of heroin addiction, and admits to injecting heroin for several years in the past, though claims to have overcome her addiction as of January 2024. When questioned, she indicated that her usual sites of injection wearing her arms, but that she had also occasionally used injection sites in her legs. The patient describes a hospitalization approximately 1 year ago, the description of which suggests she was treated for septicemia/sepsis. The patient also admits to smoking approximately 7 cigarettes/day. She also vapes. 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 Tobacco abuse counseling Anxiety Substance abuse Depression Home Medications ???Medication ???Instructions ???Recorded ???Last Taken ???Type albuterol sulfate 90 mcg/actuation 1 puff inhalation Q6H PRN PRN Unknown History aerosol inhaler (Ventolin HFA) Wheezing sumatriptan succinate 50 mg tablet 50 mg PO .X1 PRN 07/23/13 Unknow n History buspirone 5 mg tablet 5 mg PO TID 06/23/24 Unknown Histo ry clonidine HCl 0.1 mg tablet 0.1 mg PO BID 06/23/24 Unknown His tory escitalopram oxalate 20 mg tablet 20 mg PO DAILY 06/23/24 Unknown H istory polyethylene glycol 3350 17 17 g PO QWEEK PRN constipation 09/12 Unknown History gram/dose oral powder telmisartan 40 mg tablet 20 mg PO DAILY 06/23/24 Unknown Hi story zolpidem 5 mg tablet 5 mg PO QHS 06/23/24 Unknown Histo ry Allergy/AdvReac Type Severity Reaction Status Date / Time hydromorphone HCl (From AdvReac Itching Verified 06/23/24 11:24 Dilaudid) Surgical History History of D C History of tonsillectomy Social History Smoking Status: Current every day smoker tobacco type: cigarettes Vital Signs Vital Signs Vital Signs: Weight Weight: 162 lb Body Mass Index (BMI) 24.6 Physical Exam Const alert, oriented x3, no apparent distress, average body habitus, no limitations and well nourished Constitutional Narrative: The patient's BMI is 24.6. General Appearance: cooperative, comfortable and well developed Orientation / Consciousness: awake, oriented to person, oriented to place and oriented to time Exam Limitations: no limitations HEENT normocephalic and head/scalp atraumatic Head and Scalp: normal to inspection, normocephalic and atraumatic Face and Sinus: normal facial exam Nose: external nose normal External Ear: external ears normal Eyes EOMs intact bilaterally General Eye: normal appearance of both eyes Resp normal respiratory effort, normal air movement, no retractions and no use of accessory muscles Effort and Inspection: able to speak in complete sentences Extremity no calf tenderness General Extremity: Negative for clubbing or cyanosis Skin Wound Narrative: Numerous ulcerations are noted in both lower extremities. They are generally small in size. Most appear to extend through all layers of the dermis and into the subcutaneous tissues. Most demonstrate frankly necrotic tissue within. Many demonstrate a rim of erythema, suggestive of cellulitis. Ulcer margins are generally not well beveled. Dimensions and locations of the ulcerations are documented elsewhere. Photographic documentation has also been undertaken. Hair: normal Neuro oriented x3, CN's II-XII intact bilaterally, moves all extremities, no focal motor deficits and no sensory deficits noted Sensorium / Orientation: awake, alert, oriented to person, oriented to place, oriented to time and orientation impaired Speech: speech normal Psych Appearance: grossly normal and appropriate Attitude: calm Activity / Motor Behavior: appropriate eye contact Speech: normal (more content not included)... Normal [facility] Wound Cultureon 06-25-2024 WC right LE anterior Clinical correlation necessary, Possible skin contamination. Staphylococcus epidermidis Amount Growth Rare Staphylococcus epidermidis: REACTION cefOXitin Susc Islt Doxycycline Islt MIGUEL ANGEL 1 S Clindamycin Islt MIGUEL ANGEL 0.25 S Clindamycin.induced Susc Islt NEG Erythromycin Islt MIGUEL ANGEL >=8 R Gentamicin Islt MIGUEL ANGEL <=0.5 S Linezolid Islt MIGUEL ANGEL 1 S Oxacillin Susc Islt <=0.25 S Tetracycline Islt MIGUEL ANGEL 2 S TMP SMX Islt MIGUEL ANGEL >=320 R Vancomycin Islt MIGUEL ANGEL 2 S Normal [facility] Comment on above: Performed By: #### M 100.4001, M100.2999, #### [facility] Laboratory [address] [place], [address] WC right le medial Clinical correlation necessary, Possible skin contamination. Staphylococcus epidermidis Amount Growth Rare Staphylococcus epidermidis: REACTION cefOXitin Susc Islt Doxycycline Islt MIGUEL ANGEL <=0.5 S Clindamycin Islt MIGUEL ANGEL 0.25 S Clindamycin.induced Susc Islt NEG Erythromycin Islt MIGUEL ANGEL >=8 R Gentamicin Islt MIGUEL ANGEL <=0.5 S Linezolid Islt MIGUEL ANGEL 1 S Oxacillin Susc Islt <=0.25 S Tetracycline Islt MIGUEL ANGEL <=1 S TMP SMX Islt MIGUEL ANGEL >=320 R Vancomycin Islt MIGUEL ANGEL 2 S Normal [facility] Comment on above: Performed By: #### M 100.4001, M100.2999, #### [facility] Laboratory [address] [place], [place], [id number] Gram Stainon 06-24-2024 GS right le medial Gram Stain Rare Gram positive cocci No White Blood Cells No Epithelial cells Normal [facility] Comment on above: Performed By: #### M 100.4001, M100.3000, #### [facility] [address] [place], [place], [id number] GS right LE anterior Gram Stain No White Blood Cells No Epithelial cells 1+ Gram positive cocci Normal [facility] Comment on above: Performed By: #### M 100.4001, M100.3000, M100.2000 #### [facility] Laboratory [address] [place], [address] Bacteria identified Anaer cx Nom (Unsp spec)Ordered By: Mario Potts on 06-23-2024 Anaerobic Culture No growth in 5 days. [facility] CBC W/Diff, Automatedon Absolute Neut Normal 2.0-7.7 [facility] Comment on above: Result Comment: NOT DONE Performed By: #### L 100.0100, L500.4050 #### [facility] Laboratory [address] [place], [address] HCT Normal 37-47 [facility] Comment on above: Result Comment: NOT DONE Performed By: #### L 100.0100, L500.4050 #### [facility] Laboratory [address] [place], [address] HGB Normal 12.0-15.0 [facility] Comment on above: Result Comment: NOT DONE Performed By: #### L 100.0100, L500.4050 #### [facility] [address] [place], [address] MCH Normal 27.0-32.0 [facility] Comment on above: Result Comment: NOT DONE Performed By: #### L 100.0100, L500.4050 #### [facility] [address] [place], [address] MCHC Normal 32-36 [facility] Comment on above: Result Comment: NOT DONE Performed By: #### L 100.0100, L500.4050 #### [facility] [address] [place], [address] MCV Normal 81-99 [facility] Comment on above: Result Comment: NOT DONE Performed By: #### L 100.0100, L500.4050 #### [facility] Laboratory [address] [place], [address] NEUT% Normal 47-70 [facility] Comment on above: Result Comment: NOT DONE Performed By: #### L 100.0100, L500.4050 #### [facility] [address] [place], [address] PLT Normal 150-450 [facility] Comment on above: Result Comment: NOT DONE Performed By: #### L 100.0100, L500.4050 #### [facility] [address] [place], [address] RBC Normal 4.2-5.4 [facility] Comment on above: Result Comment: NOT DONE Performed By: #### L 100.0100, L500.4050 #### [facility] [address] [place], [address] RDW CV Normal 11.6-14.6 [facility] Comment on above: Result Comment: NOT DONE Performed By: #### L 100.0100, L500.4050 #### [facility] [address] [place], [address] RDW SD Normal 35.1-43.9 [facility] Comment on above: Result Comment: NOT DONE Performed By: #### L 100.0100, L500.4050 #### [facility] [address] [place], [address] WBC Normal 4.4-11.0 [facility] Comment on above: Result Comment: NOT DONE Performed By: #### L 100.0100, L500.4050 #### [facility] [address] [place], [address] Comprehensive Metabolic Prof ilon 06-23-2024 ALB Normal 3.5-5.0 [facility] Comment on above: Result Comment: NOT COLLECTED. Performed By: #### L 100.0100, L500.4050 #### [facility] [address] [place], [address] ALK PHOS Normal 35-104 [facility] Comment on above: Result Comment: NOT COLLECTED. Performed By: #### L 100.0100, L500.4050 #### [facility] [address] [place], [address] ALT Normal <=34 [facility] Comment on above: Result Comment: NOT COLLECTED. Performed By: #### L 100.0100, L500.4050 #### [facility] [address] [place], [address] AST Normal <=31 [facility] Comment on above: Result Comment: NOT COLLECTED. Performed By: #### L 100.0100, L500.4050 #### [facility] [address] [place], [address] BUN Normal 4-19 [facility] Comment on above: Result Comment: NOT COLLECTED. Performed By: #### L 100.0100, L500.4050 #### [facility] [address] [place], [address] BUN/CRE Normal 10-20 [facility] Comment on above: Result Comment: NOT COLLECTED. Performed By: #### L 100.0100, L500.4050 #### [facility] [address] [place], [address] Calcium Normal 7.6-11.0 [facility] Comment on above: Result Comment: NOT COLLECTED. Performed By: #### L 100.0100, L500.4050 #### [facility] [address] [place], [address] CL Normal 98-108 [facility] Comment on above: Result Comment: NOT COLLECTED. Performed By: #### L 100.0100, L500.4050 #### [facility] [address] [place], [address] CO2 Normal 21.0-32.0 [facility] Comment on above: Result Comment: NOT COLLECTED. Performed By: #### L 100.0100, L500.4050 #### [facility] [address] [place], [address] CREAT,SERUM Normal 0.70-1.20 [facility] Comment on above: Result Comment: NOT COLLECTED. Performed By: #### L 100.0100, L500.4050 #### [facility] [address] [place], [address] eGFR Normal >60 [facility] Comment on above: Result Comment: NOT COLLECTED. Performed By: #### L 100.0100, L500.4050 #### [facility] [address] [place], [address] GAP Normal 5-15 [facility] Comment on above: Result Comment: NOT COLLECTED. Performed By: #### L 100.0100, L500.4050 #### [facility] Laboratory [address] [place], [address] GLU Normal 70-99 [facility] Comment on above: Result Comment: NOT COLLECTED. Performed By: #### L 100.0100, L500.4050 #### [facility] Laboratory [address] [place], [address] Potassium Normal 3.3-5.1 [facility] Comment on above: Result Comment: NOT COLLECTED. Performed By: #### L 100.0100, L500.4050 #### [facility] Laboratory [address] [place], [address] T BILI Normal 0.00-1.30 [facility] Comment on above: Result Comment: NOT COLLECTED. Performed By: #### L 100.0100, L500.4050 #### [facility] Laboratory [address] [place], [address] T PROT Normal 5.9-8.4 [facility] Comment on above: Result Comment: NOT COLLECTED. Performed By: #### L 100.0100, L500.4050 #### [facility] Laboratory [address] [place], [address] Comprehensive Metabolic Profil Normal 133-145 [facility] Comment on above: Result Comment: NOT COLLECTED. Performed By: #### L 100.0100, L500.4050 #### [facility] Laboratory [address] [place], [address] Gram stainOrdered By: Mario Potts on 06-23-2024 Microscopic observation Gram stain Nom (Unsp spec) [facility] Routine wound cultureOrdered By: Mario Potts on 06-23-2024 Wound Culture Staphylococcus epidermidis Abnormal [facility] DBT Breast - bilateral scree ningon 06-02-2024 No mammographic evid ence of malignancy. ASSESSMENT: Category 1 Negative RECOMMENDATION: Routine screening mammogram in 1 year. Bilateral CANCER RISK ASSESSMENT: This risk assessment is based on patient provided information collected in a risk survey taken at the time of this examination. LIFETIME BREAST CANCER RISK: Joe 8: 14% - If greater than or equal to 20%, consider annual mammogram and annual screening Breast MRI or follow up in high risk clinic. Is the patient at elevated risk based on the HBOC criteria? Yes (Hereditary Breast and Ovarian Cancer) - If Yes, consider genetic counseling and testing with high risk follow up Is the patient at elevated risk based on the Nascimento Syndrome criteria? No - If Yes, consider genetic counseling and testing with high risk follow up. Report Dictated on Electronically Signed By: Faith Deluca MD Electronically Signed Date/Time: 06/02/2024 3:17 PM [facility] [employer] [facility] 1980 [id number] Exam Date/Time: 06/02/2024 14:48 Procedure: BI MAMMOGRAM SCREENING TOMOSYNTHESIS BILATERAL Ordering Provider: WORLEY EILEEN Reason For Exam: This exam was performed at [facility] [address] [facility] [address] RISK ALERT: The Cancer Risk Assessment scores below the recommendation of this report contain an outcome above the normal risk range. PATIENT CANCER HISTORY: No Personal History of Cancer FAMILY CANCER HISTORY: Paternal Grandmother Breast Cancer age 45 Image views: 2D Bilateral CC and MLO views were acquired. 3D Bilateral CC and MLO views were acquired. Images were reviewed with CAD. Markings on images: BB's = Nipples; skin lesions Open [place] = Palpable Line = Scar COMPARISON: 05/02/2022 and 01/21/2019 TISSUE DENSITY: BIRADS B - There are scattered areas of fibroglandular density. FINDINGS: No suspicious masses, architectural distortions or suspiciously clustered microcalcifications are identified. There is no evidence of skin thickening or nipple retraction. There are no significant changes when compared with prior studies. [facility] Faith Deluca MD - 06/02/2024 Patient Name: LISA CHAUDHRY : 1980 Exam Date/Time: 06/02/2024 14:48 Procedure: BI MAMMOGRAM SCREENING TOMOSYNTHESIS BILATERAL Ordering Provider: WORLEY EILEEN Reason For Exam: This exam was performed at [address] [facility] [address] RISK ALERT: The Cancer Risk Assessment scores below the recommendation of this report contain an outcome above the normal risk range. PATIENT CANCER HISTORY: No Personal History of Cancer FAMILY CANCER HISTORY: Paternal Grandmother Breast Cancer age 45 Image views: 2D Bilateral CC and MLO views were acquired. 3D Bilateral CC and MLO views were acquired. Images were reviewed with CAD. Markings on images: BB's = Nipples; skin lesions Open bridgeport = Palpable Line = Scar COMPARISON: 05/02/2022 and 01/21/2019 TISSUE DENSITY: BIRADS B - There are scattered areas of fibroglandular density. FINDINGS: No suspicious masses, architectural distortions or suspiciously clustered microcalcifications are identified. There is no evidence of skin thickening or nipple retraction. There are no significant changes when compared with prior studies. IMPRESSION: No mammographic evidence of malignancy. ASSESSMENT: Category 1 Negative RECOMMENDATION: Routine screening mammogram in 1 year. Bilateral CANCER RISK ASSESSMENT: This risk assessment is based on patient provided information collected in a risk survey taken at the time of this examination. LIFETIME BREAST CANCER RISK: Idaniaer-Adiszick 8: 14% - If greater than or equal to 20%, consider annual mammogram and annual screening Breast MRI or follow up in high risk clinic. Is the patient at elevated risk based on the HBOC criteria? Yes (Hereditary Breast and Ovarian Cancer) - If Yes, consider genetic counseling and testing with high risk follow up Is the patient at elevated risk based on the Nascimento Syndrome criteria? No - If Yes, consider genetic counseling and testing with high risk follow up. Report Dictated on Electronically Signed By: Faith Deluca MD Electronically Signed Date/Time: 06/02/2024 3:17 PM EST [facility] Radiology Study observation (narrative) [facility] DBT Breast - bilateral scree ningOrdered By: Faith Deluca on 06-02-2024 [facility] Work Phone: Bacteria identified Aer cx N om (Unsp spec)Ordered By: Karen Sandhu on 03-27-2024 Interpretation and review of laboratory results Abnormal [facility] CBCon 03-27-2024 Erythrocyte distribution width (RBC) [Ratio] 14.3 % Normal 11.5-14.5 [facility] Hematocrit (Bld) [Volume fraction] 44.4 % Normal 36.0-46.0 [facility] Hemoglobin (Bld) [Mass/Vol] 15.2 g/dL Normal 12.0-16.0 [facility] MCH (RBC) [Entitic mass] 30.4 pg Normal 28.0-32.0 [facility] MCV (RBC) [Entitic vol] 88.9 fL Normal 80.0-99.0 [facility] MEAN CORPUSCULAR HEMOGLOBIN CONC 34.2 g/dL Normal 33.0-37.0 [facility] Platelet mean volume (Bld) [Entitic vol] 8.9 fL Low 9.4-12.4 [facility] Platelets (Bld) [#/Vol] 297 10*3/uL Normal 120-400 [facility] RBC (Bld) [#/Vol] 4.99 10*6/uL Normal 4.00-5.20 [facility] WBC (Bld) [#/Vol] 9.80 10*3/uL Normal 4.80-10.80 [facility] CBC panel Auto (Bld)on 03-27 Erythrocyte distribution width (RBC) [Entitic vol] 14.3 % 11.5 - 14.5 % [facility] Hematocrit (Bld) [Volume fraction] 44.4 % 36.0 - 46.0 % [facility] Hemoglobin (Bld) [Mass/Vol] 15.2 g/dL 12.0 - 16.0 g/dL [facility] Interpretation and review of laboratory results Abnormal [facility] MCH (RBC) [Entitic mass] 30.4 pg 28.0 - 32.0 pg [facility] MCHC (RBC) [Mass/Vol] 34.2 g/dL 33.0 - 37.0 g/dL [facility] MCV (RBC) [Entitic vol] 88.9 fL 80.0 - 99.0 fL [facility] Platelet mean volume (Bld) [Entitic vol] 8.9 fL Low 9.4 - 12.4 fL [facility] Platelets (Bld) [#/Vol] 297 10*3/uL [facility] RBC (Bld) [#/Vol] 4.99 10*6/uL [facility] WBC (Bld) [#/Vol] 9.8 10*3/uL [place] [facility] COMPREHENSIVE METABOLIC PANE Tariq 03-27-2024 Albumin [Mass/Vol] 3.2 g/dL Low 3.5-5.0 [facility] Comment on above: Order Comment: [facility] has implemented the eGFR calculation approach that does not have a coefficient for race that conforms to the NKF-ASN Task Force Recommendations. ALP [Catalytic activity/Vol] 71 U/L Normal 38-126 [facility] Comment on above: Order Comment: [facility] has implemented the eGFR calculation approach that does not have a coefficient for race that conforms to the NKF-ASN Task Force Recommendations. ALT [Catalytic activity/Vol] 13 U/L Normal 0-35 U/L [facility] Comment on above: Order Comment: [facility] has implemented the eGFR calculation approach that does not have a coefficient for race that conforms to the NKF-ASN Task Force Recommendations. Anion gap [Moles/Vol] 15 mmol/L Normal 10-20 [facility] Comment on above: Order Comment: [facility] has implemented the eGFR calculation approach that does not have a coefficient for race that conforms to the NKF-ASN Task Force Recommendations. AST [Catalytic activity/Vol] 21 U/L Normal 0-35 U/L [facility] Comment on above: Order Comment: [facility] has implemented the eGFR calculation approach that does not have a coefficient for race that conforms to the NKF-ASN Task Force Recommendations. Bilirubin [Mass/Vol] 0.7 mg/dL Normal 0.3-1.2 [facility] Comment on above: Order Comment: [facility] has implemented the eGFR calculation approach that does not have a coefficient for race that conforms to the NKF-ASN Task Force Recommendations. Calcium [Mass/Vol] 8.7 mg/dL Normal 8.4-10.2 [facility] Comment on above: Order Comment: [facility] has implemented the eGFR calculation approach that does not have a coefficient for race that conforms to the NKF-ASN Task Force Recommendations. Chloride [Moles/Vol] 106 mmol/L Normal 98-107 [facility] Comment on above: Order Comment: [facility] has implemented the eGFR calculation approach that does not have a coefficient for race that conforms to the NKF-ASN Task Force Recommendations. Creatinine [Mass/Vol] 0.58 mg/dL Normal 0.40-1.10 [facility] Comment on above: Order Comment: [facility] has implemented the eGFR calculation approach that does not have a coefficient for race that conforms to the NKF-ASN Task Force Recommendations. EGFR 115 mL/min/1.73 m2 Normal >=60 [facility] Comment on above: Order Comment: [facility] has implemented the eGFR calculation approach that does not have a coefficient for race that conforms to the NKF-ASN Task Force Recommendations. Result Comment: Rosario mated GFR was calculated using the 2020 CKD-EPI creatinine equation. Glucose [Mass/Vol] 109 mg/dL Normal 70-126 [facility] Comment on above: Order Comment: [facility] has implemented the eGFR calculation approach that does not have a coefficient for race that conforms to the NKF-ASN Task Force Recommendations. HCO3 (Bld) [Moles/Vol] 20 mmol/L Low 22-31 [facility] Comment on above: Order Comment: [facility] has implemented the eGFR calculation approach that does not have a coefficient for race that conforms to the NKF-ASN Task Force Recommendations. Potassium [Moles/Vol] 3.9 mmol/L Normal 3.5-5.1 [facility] Comment on above: Order Comment: [facility] has implemented the eGFR calculation approach that does not have a coefficient for race that conforms to the NKF-ASN Task Force Recommendations. Protein [Mass/Vol] 7.4 g/dL Normal 6.4-8.3 [facility] Comment on above: Order Comment: [facility] has implemented the eGFR calculation approach that does not have a coefficient for race that conforms to the NKF-ASN Task Force Recommendations. Sodium [Moles/Vol] 137 mmol/L Normal 136-145 [facility] Comment on above: Order Comment: [facility] has implemented the eGFR calculation approach that does not have a coefficient for race that conforms to the NKF-ASN Task Force Recommendations. Urea nitrogen [Mass/Vol] 14 mg/dL Normal 7-22 [facility] Comment on above: Order Comment: [facility] has implemented the eGFR calculation approach that does not have a coefficient for race that conforms to the NKF-ASN Task Force Recommendations. Urea nitrogen/Creatinine [Mass ratio] 24.1 mg/mg High 10.0-20.0 [facility] Comment on above: Order Comment: [facility] has implemented the eGFR calculation approach that does not have a coefficient for race that conforms to the NKF-ASN Task Force Recommendations. CRP [Mass/Vol]on 03-27-2024 Interpretation and review of laboratory results Normal [facility] CRP, INFLAMMATIONon 03-27-20 24 CRP (INFLAMMATION) < Normal 0.0-1.0 [facility] CRP, Inflammationon 03-27-20 24 CRP [Mass/Vol] mg/L 0.0 - 1.0 mg/L [facility] Comprehensive metabolic 2000 panelon 03-27-2024 Albumin [Mass/Vol] 3.2 g/dL Low 3.5 - 5.0 g/dL [facility] ALP [Catalytic activity/Vol] 71 U/L 38 - 126 U/L [facility] ALT [Catalytic activity/Vol] 13 U/L 0-35 U/L [facility] Anion gap [Moles/Vol] 15 mmol/L 10 - 20 mmol/L [facility] AST [Catalytic activity/Vol] 21 U/L 0-35 U/L [facility] Bilirubin [Mass/Vol] 0.7 mg/dL 0.3 - 1 .2 mg/dL [facility] Calcium [Mass/Vol] 8.7 mg/dL 8.4 - 10. 2 mg/dL [facility] Chloride [Moles/Vol] 106 mmol/L 98 - 10 7 mmol/L [facility] Creatinine [Mass/Vol] 0.58 mg/dL 0.40 - 1.10 mg/dL [facility] GFR/1.73 sq M.predicted CKD-EPI (S/P/Bld) [Vol rate/Area] 115 - PINF [facility] Comment on above: Estimated GFR was ca lculated using the 2020 CKD-EPI creatinine equation. Glucose [Mass/Vol] 109 mg/dL 70 - 126 mg/dL [facility] HCO3 [Moles/Vol] 20 mmol/L Low 22 - 31 mmol/L [facility] Potassium [Moles/Vol] 3.9 mmol/L 3.5 - 5.1 mmol/L [facility] Protein [Mass/Vol] 7.4 g/dL 6.4 - 8.3 g/dL [facility] Sodium [Moles/Vol] 137 mmol/L 136 - 145 mmol/L [facility] Urea nitrogen [Mass/Vol] 14 mg/dL 7 - 22 mg/dL [facility] Urea nitrogen/Creatinine [Mass ratio] 24.1 mg/mg High 10.0 - 20.0 [facility] has implemented the eGFR calculation approach that does not have a coefficient for race that conforms to the NKF-ASN Task Force Recommendations. [facility] Glucose (Bld) [Mass/Vol]on 05-28-2023 Glucose [Mass/Vol] 115 mg/dL High 65 - 99 mg/dL [facility] Interpretation and review of laboratory results Abnormal [facility] MAGNESIUM LEVELon 03-27-2024 Magnesium [Mass/Vol] 2.2 mg/dL Normal 1.7-2.8 [facility] Magnesium Levelon 03-27-2024 Magnesium [Mass/Vol] 2.2 mg/dL 1.7 - 2 .8 mg/dL [facility] Magnesium [Mass/Vol]on 03-27 Interpretation and review of laboratory results Normal [facility] No Panel Informationon 03-27 Interpretation and review of laboratory results Abnormal [facility] PHOSPHORUSon 03-27-2024 Phosphate [Mass/Vol] 2.3 mg/dL Low 2.5-4.6 [facility] Glucose [Mass/Vol] 115 mg/dL High 65-99 [facility] PROCALCITONINon 03-27-2024 PROCALCITONIN 0.07 ng/ml Normal <0.50 [facility] Comment on above: Order Comment: [facility] has implemented the eGFR calculation approach that does not have a coefficient for race that conforms to the NKF-ASN Task Force Recommendations. Performed By: [id number] ####[facility] [address] [place] [address] Sai Lara M.D. [id number] Phosphoruson 03-27-2024 Phosphate [Mass/Vol] 2.3 mg/dL Low 2.5 - 4 .6 mg/dL [facility] Procalcitoninon 03-27-2024 Procalcitonin [Mass/Vol] 0.07 ng/mL [facility] ng/ml [facility] Procalcitonin [Mass/Vol]on 05-28-2023 Interpretation and review of laboratory results Normal [facility] Results <0.50 ng/ml represent a low risk of severe sepsis and/or septic shock. [facility] Urine Aerobic CultureOrdered By: Karen Sandhu on 03-27-2024 Bacteria identified Aer cx Nom (Unsp spec) 10,000-49,000 CFU/mL Escherichia coli Abnormal [facility] Bacteria identified Aer cx Nom (Unsp spec) < 10,000 CFU/mL of normal urogenital microbiota [facility] CBCon 03-26-2024 Erythrocyte distribution width (RBC) [Ratio] 14.5 % Normal 11.5-14.5 [facility] Hematocrit (Bld) [Volume fraction] 48.4 % High 36.0-46.0 [facility] Hemoglobin (Bld) [Mass/Vol] 16.0 g/dL Normal 12.0-16.0 [facility] MCH (RBC) [Entitic mass] 29.9 pg Normal 28.0-32.0 [facility] MCV (RBC) [Entitic vol] 90.7 fL Normal 80.0-99.0 [facility] MEAN CORPUSCULAR HEMOGLOBIN CONC 33.0 g/dL Normal 33.0-37.0 [facility] Platelet mean volume (Bld) [Entitic vol] 8.3 fL Low 9.4-12.4 [facility] Platelets (Bld) [#/Vol] 288 10*3/uL Normal 120-400 [facility] RBC (Bld) [#/Vol] 5.33 10*6/uL High 4.00-5.20 [facility] WBC (Bld) [#/Vol] 12.70 10*3/uL High 4.80-10.80 [facility] CBC panel Auto (Bld)on 03-26 Erythrocyte distribution width (RBC) [Entitic vol] 14.5 % 11.5 - 14.5 % [facility] Hematocrit (Bld) [Volume fraction] 48.4 % High 36.0 - 46.0 % [facility] Hemoglobin (Bld) [Mass/Vol] 16 g/dL 12.0 - 16.0 g/dL [facility] Interpretation and review of laboratory results Abnormal [facility] MCH (RBC) [Entitic mass] 29.9 pg 28.0 - 32.0 pg [facility] MCHC (RBC) [Mass/Vol] 33 g/dL 33.0 - 37.0 g/dL [facility] MCV (RBC) [Entitic vol] 90.7 fL 80.0 - 99.0 fL [facility] Platelet mean volume (Bld) [Entitic vol] 8.3 fL Low 9.4 - 12.4 fL [facility] Platelets (Bld) [#/Vol] 288 10*3/uL [facility] RBC (Bld) [#/Vol] 5.33 10*6/uL High [facility] WBC (Bld) [#/Vol] 12.7 10*3/uL [facility] COMPREHENSIVE METABOLIC PANE Tariq 03-26-2024 Albumin [Mass/Vol] 3.2 g/dL Low 3.5-5.0 [facility] Comment on above: Order Comment: [facility] has implemented the eGFR calculation approach that does not have a coefficient for race that conforms to the NKF-ASN Task Force Recommendations. ALP [Catalytic activity/Vol] 81 U/L Normal 38-126 [facility] Comment on above: Order Comment: [facility] has implemented the eGFR calculation approach that does not have a coefficient for race that conforms to the NKF-ASN Task Force Recommendations. ALT [Catalytic activity/Vol] 13 U/L Normal 0-35 U/L [facility] Comment on above: Order Comment: [facility] has implemented the eGFR calculation approach that does not have a coefficient for race that conforms to the NKF-ASN Task Force Recommendations. Anion gap [Moles/Vol] 15 mmol/L Normal 10-20 [facility] Comment on above: Order Comment: [facility] has implemented the eGFR calculation approach that does not have a coefficient for race that conforms to the NKF-ASN Task Force Recommendations. AST [Catalytic activity/Vol] 15 U/L Normal 0-35 U/L [facility] Comment on above: Order Comment: [facility] has implemented the eGFR calculation approach that does not have a coefficient for race that conforms to the NKF-ASN Task Force Recommendations. Bilirubin [Mass/Vol] 0.5 mg/dL Normal 0.3-1.2 [facility] Comment on above: Order Comment: [facility] has implemented the eGFR calculation approach that does not have a coefficient for race that conforms to the NKF-ASN Task Force Recommendations. Calcium [Mass/Vol] 8.8 mg/dL Normal 8.4-10.2 [facility] Comment on above: Order Comment: [facility] has implemented the eGFR calculation approach that does not have a coefficient for race that conforms to the NKF-ASN Task Force Recommendations. Chloride [Moles/Vol] 105 mmol/L Normal 98-107 [facility] Comment on above: Order Comment: [facility] has implemented the eGFR calculation approach that does not have a coefficient for race that conforms to the NKF-ASN Task Force Recommendations. Creatinine [Mass/Vol] 0.34 mg/dL Low 0.40-1.10 [facility] Comment on above: Order Comment: [facility] has implemented the eGFR calculation approach that does not have a coefficient for race that conforms to the NKF-ASN Task Force Recommendations. EGFR 130 mL/min/1.73 m2 Normal >=60 [facility] Comment on above: Order Comment: [facility] has implemented the eGFR calculation approach that does not have a coefficient for race that conforms to the NKF-ASN Task Force Recommendations. Result Comment: Rosario mated GFR was calculated using the 2020 CKD-EPI creatinine equation. Glucose [Mass/Vol] 112 mg/dL Normal 70-126 [facility] Comment on above: Order Comment: [facility] has implemented the eGFR calculation approach that does not have a coefficient for race that conforms to the NKF-ASN Task Force Recommendations. HCO3 (Bld) [Moles/Vol] 19 mmol/L Low 22-31 [facility] Comment on above: Order Comment: [facility] has implemented the eGFR calculation approach that does not have a coefficient for race that conforms to the NKF-ASN Task Force Recommendations. Potassium [Moles/Vol] 3.6 mmol/L Normal 3.5-5.1 [facility] Comment on above: Order Comment: [facility] has implemented the eGFR calculation approach that does not have a coefficient for race that conforms to the NKF-ASN Task Force Recommendations. Protein [Mass/Vol] 7.6 g/dL Normal 6.4-8.3 [facility] Comment on above: Order Comment: [facility] has implemented the eGFR calculation approach that does not have a coefficient for race that conforms to the NKF-ASN Task Force Recommendations. Sodium [Moles/Vol] 135 mmol/L Low 136-145 [facility] Comment on above: Order Comment: [facility] has implemented the eGFR calculation approach that does not have a coefficient for race that conforms to the NKF-ASN Task Force Recommendations. Urea nitrogen [Mass/Vol] 15 mg/dL Normal 7-22 [facility] Comment on above: Order Comment: [facility] has implemented the eGFR calculation approach that does not have a coefficient for race that conforms to the NKF-ASN Task Force Recommendations. Urea nitrogen/Creatinine [Mass ratio] 44.1 mg/mg High 10.0-20.0 [facility] Comment on above: Order Comment: [facility] has implemented the eGFR calculation approach that does not have a coefficient for race that conforms to the NKF-ASN Task Force Recommendations. CT ABDOMEN PELVIS WITH IV CO NTRAST ONLYon 03-26-2024 CT ABDOMEN PELVIS WITH IV CONTRAST ONLY CT Abdomen and Pelvis with Contrast INDICATION: Abdominal pain, acute, nonlocalized; abd pain; Lethargy; Nausea and vomiting; Acute UTI; Hypertension, unspecified type COMPARISON: None. TECHNIQUE: Contiguous axial CT images through the abdomen and pelvis with the uneventful administration of intravenous contrast. Coronal and sagittal reformations are submitted. This exam was performed according to our departmental dose-optimization program, which includes automated exposure control, adjustment of the mA and/or kV according to patient size and/or use of iterative reconstruction technique. FINDINGS: Lung bases: Clear. No effusions. Hepatobiliary: No focal abnormalities within the liver. The liver is enlarged. Gallbladder is unremarkable. Spleen: Within normal limits. Pancreas: Within normal limits. Adrenals: Within normal limits. Kidneys: Hypodense foci too small to characterize for which no follow-up is recommended. No hydronephrosis. Bowel: No evidence of bowel obstruction. Appendix unremarkable. Large amount of stool in the colon. Pelvic organs: Within normal limits. Vessels: No abdominal aortic aneurysm. Bones: 1.1 x 1.1 cm cystic lesion in the right neural foramen of T11-T12 may represent a perineural cyst.. Small left paracentral and lateral disc bulge at L1-L2 with mild left neural foraminal narrowing. Small broad-based disc bulge at L2-L3. No lymphadenopathy. No free fluid. IMPRESSION: IMPRESSION: 1. Motion limited exam. 2. No acute intra-abdominal or intrapelvic process. 3. Large amount of stool in the colon. Correlate for constipation. 4. 1.1 x 1.1 cm cystic lesion in the right neural foramen of T11-T12 may represent a perineural cyst. Degenerative changes of the lumbar spine. Further evaluation with MRI may be considered if clinically indicated. Electronically signed by: Cassy Lazaro MD 03/26/2024 10:54 AM EST RP Dictated by: MIKE MARIEE [employer] on FriMar 26, 2024 10:54:44 AM EST Transcribed by: MIKE MARIEE [employer] on FriMar 26, 2024 10:54:44 AM EST Finalized by: MIKE MARIEE [employer] on FriMar 26, 2024 10:54:44 AM EST Normal [facility] Comment on above: Order Comment: Injur y/Trauma or Illness?:Illness/OtherHow long have you had these symptoms (acute/chronic)?:AcuteReason for exam?:abd painType of Exam?:InitialAdditional signs and symptoms?:abd pain CT Abdomen and Pelvis W cont rast Chitra 03-26-2024 IMPRESSION: 1. Motion limited exam. 2. No acute intra-abdominal or intrapelvic process. 3. Large amount of stool in the colon. Correlate for constipation. 4. 1.1 x 1.1 cm cystic lesion in the right neural foramen of T11-T12 may represent a perineural cyst. Degenerative changes of the lumbar spine. Further evaluation with MRI may be considered if clinically indicated. Electronically signed by: Cassy Lazaro MD 03/26/2024 10:54 AM EST RP [facility] CT Abdomen and Pelvi s with Contrast INDICATION: Abdominal pain, acute, nonlocalized; abd pain; Lethargy; Nausea and vomiting; Acute UTI; Hypertension, unspecified type COMPARISON: None. TECHNIQUE: Contiguous axial CT images through the abdomen and pelvis with the uneventful administration of intravenous contrast. Coronal and sagittal reformations are submitted. This exam was performed according to our departmental dose-optimization program, which includes automated exposure control, adjustment of the mA and/or kV according to patient size and/or use of iterative reconstruction technique. FINDINGS: Lung bases: Clear. No effusions. Hepatobiliary: No focal abnormalities within the liver. The liver is enlarged. Gallbladder is unremarkable. Spleen: Within normal limits. Pancreas: Within normal limits. Adrenals: Within normal limits. Kidneys: Hypodense foci too small to characterize for which no follow-up is recommended. No hydronephrosis. Bowel: No evidence of bowel obstruction. Appendix unremarkable. Large amount of stool in the colon. Pelvic organs: Within normal limits. Vessels: No abdominal aortic aneurysm. Bones: 1.1 x 1.1 cm cystic lesion in the right neural foramen of T11-T12 may represent a perineural cyst.. Small left paracentral and lateral disc bulge at L1-L2 with mild left neural foraminal narrowing. Small broad-based disc bulge at L2-L3. No lymphadenopathy. No free fluid. [facility] Cassy Lazaro MD - 03/26/2024 CT Abdomen and Pelvis with Contrast INDICATION: Abdominal pain, acute, nonlocalized; abd pain; Lethargy; Nausea and vomiting; Acute UTI; Hypertension, unspecified type COMPARISON: None. TECHNIQUE: Contiguous axial CT images through the abdomen and pelvis with the uneventful administration of intravenous contrast. Coronal and sagittal reformations are submitted. This exam was performed according to our departmental dose-optimization program, which includes automated exposure control, adjustment of the mA and/or kV according to patient size and/or use of iterative reconstruction technique. FINDINGS: Lung bases: Clear. No effusions. Hepatobiliary: No focal abnormalities within the liver. The liver is enlarged. Gallbladder is unremarkable. Spleen: Within normal limits. Pancreas: Within normal limits. Adrenals: Within normal limits. Kidneys: Hypodense foci too small to characterize for which no follow-up is recommended. No hydronephrosis. Bowel: No evidence of bowel obstruction. Appendix unremarkable. Large amount of stool in the colon. Pelvic organs: Within normal limits. Vessels: No abdominal aortic aneurysm. Bones: 1.1 x 1.1 cm cystic lesion in the right neural foramen of T11-T12 may represent a perineural cyst.. Small left paracentral and lateral disc bulge at L1-L2 with mild left neural foraminal narrowing. Small broad-based disc bulge at L2-L3. No lymphadenopathy. No free fluid. IMPRESSION: IMPRESSION: 1. Motion limited exam. 2. No acute intra-abdominal or intrapelvic process. 3. Large amount of stool in the colon. Correlate for constipation. 4. 1.1 x 1.1 cm cystic lesion in the right neural foramen of T11-T12 may represent a perineural cyst. Degenerative changes of the lumbar spine. Further evaluation with MRI may be considered if clinically indicated. Electronically signed by: Cassy Lazaro MD 03/26/2024 10:54 AM [facility] [place] [place] [facility] Radiology Study observation (narrative) [facility] CT CHEST WITH CONTRASTon CT CHEST WITH CONTRAST CT chest with contrast INDICATION: Pneumonia, complication suspected, xray done; abd pain; Lethargy; Nausea and vomiting; Acute UTI; Hypertension, unspecified type COMPARISON: None. TECHNIQUE: Contiguous axial CT images of the chest were obtained with the administration of intravenous contrast. This exam was performed according to our departmental dose-optimization program, which includes automated exposure control, adjustment of the mA and/or kV according to patient size and/or use of iterative reconstruction technique. FINDINGS: Mediastinum: The heart is not enlarged. No significant mediastinal or hilar lymphadenopathy. Nopericardial effusion. No identifiable coronary artery calcifications. The thoracic aorta is normal in course and caliber. Mildly dilated main pulmonary artery. Lungs: No consolidation.. There is no pleural effusion . No pneumothorax. Bones: Multilevel degenerative changes of the spine. Upper abdomen: For findings in abdomen refer to the separately dictated CT. Misc: 1.4 cm heterogeneous low-density right thyroid nodule. IMPRESSION: IMPRESSION: 1. Exam is limited by respiratory motion. 2. No acute findings in the chest. 3. 1.4 cm incidental right thyroid nodule. No follow-up imaging is recommended. Reference: J Am Fabiola Radiol. 2015 May;12(2): 143-50 Electronically signed by: Cassy Lazaro MD 03/26/2024 10:41 AM EST RP Dictated by: MIKE MARIEE IN FUJI SPEECHQ on FriMar 26, 2024 10:41:20 AM EST Transcribed by: MIKE MARIEE IN FUJI SPEECHQ on FriMar 26, 2024 10:41:20 AM EST Finalized by: KODI RAD IN FUJI SPEECHQ on FriMar 26, 2024 10:41:20 AM EST Normal [facility] Comment on above: Order Comment: Vidya l: 4.2% - 5.6% Increased risk for diabetes: 5.7% - 6.4% Diabetes: >= 6.5% Pediatrics: No established reference range Estimated average glucose: 74-114 mg/dL CT Chest W contrast Chitra IMPRESSION: 1. Exam is limited by respiratory motion. 2. No acute findings in the chest. 3. 1.4 cm incidental right thyroid nodule. No follow-up imaging is recommended. Reference: J Am Fabiola Radiol. 2015 May;12(2): 143-50 Electronically signed by: Cassy Lazaro MD 03/26/2024 10:41 AM EST RP Projjix CT chest with contra st INDICATION: Pneumonia, complication suspected, xray done; abd pain; Lethargy; Nausea and vomiting; Acute UTI; Hypertension, unspecified type COMPARISON: None. TECHNIQUE: Contiguous axial CT images of the chest were obtained with the administration of intravenous contrast. This exam was performed according to our departmental dose-optimization program, which includes automated exposure control, adjustment of the mA and/or kV according to patient size and/or use of iterative reconstruction technique. FINDINGS: Mediastinum: The heart is not enlarged. No significant mediastinal or hilar lymphadenopathy. Nopericardial effusion. No identifiable coronary artery calcifications. The thoracic aorta is normal in course and caliber. Mildly dilated main pulmonary artery. Lungs: No consolidation.. There is no pleural effusion . No pneumothorax. Bones: Multilevel degenerative changes of the spine. Upper abdomen: For findings in abdomen refer to the separately dictated CT. Misc: 1.4 cm heterogeneous low-density right thyroid nodule. Projjix Cassy Lazaro MD - 03/26/2024 CT chest with contrast INDICATION: Pneumonia, complication suspected, xray done; abd pain; Lethargy; Nausea and vomiting; Acute UTI; Hypertension, unspecified type COMPARISON: None. TECHNIQUE: Contiguous axial CT images of the chest were obtained with the administration of intravenous contrast. This exam was performed according to our departmental dose-optimization program, which includes automated exposure control, adjustment of the mA and/or kV according to patient size and/or use of iterative reconstruction technique. FINDINGS: Mediastinum: The heart is not enlarged. No significant mediastinal or hilar lymphadenopathy. Nopericardial effusion. No identifiable coronary artery calcifications. The thoracic aorta is normal in course and caliber. Mildly dilated main pulmonary artery. Lungs: No consolidation.. There is no pleural effusion . No pneumothorax. Bones: Multilevel degenerative changes of the spine. Upper abdomen: For findings in abdomen refer to the separately dictated CT. Misc: 1.4 cm heterogeneous low-density right thyroid nodule. IMPRESSION: IMPRESSION: 1. Exam is limited by respiratory motion. 2. No acute findings in the chest. 3. 1.4 cm incidental right thyroid nodule. No follow-up imaging is recommended. Reference: J Am Fabiola Radiol. 2015 May;12(2): 143-50 Electronically signed by: Cassy Lazaro MD 03/26/2024 10:41 AM EST [facility] Radiology Study observation (narrative) [facility] CT Chest W contrast IVOrdere d By: Cassy Lazaro on 03-26-2024 [facility] Comprehensive metabolic 2000 panelon 03-26-2024 Albumin [Mass/Vol] 3.2 g/dL Low 3.5 - 5.0 g/dL [facility] ALP [Catalytic activity/Vol] 81 U/L 38 - 126 U/L [facility] ALT [Catalytic activity/Vol] 13 U/L 0-35 U/L [facility] Anion gap [Moles/Vol] 15 mmol/L 10 - 20 mmol/L [facility] AST [Catalytic activity/Vol] 15 U/L 0-35 U/L [facility] Bilirubin [Mass/Vol] 0.5 mg/dL 0.3 - 1 .2 mg/dL [facility] Calcium [Mass/Vol] 8.8 mg/dL 8.4 - 10. 2 mg/dL [facility] Chloride [Moles/Vol] 105 mmol/L 98 - 10 7 mmol/L [facility] Creatinine [Mass/Vol] 0.34 mg/dL Low 0.40 - 1.10 mg/dL [facility] GFR/1.73 sq M.predicted CKD-EPI (S/P/Bld) [Vol rate/Area] 130 - PINF [facility] Comment on above: Estimated GFR was ca lculated using the 2020 CKD-EPI creatinine equation. Glucose [Mass/Vol] 112 mg/dL 70 - 126 mg/dL [facility] HCO3 [Moles/Vol] 19 mmol/L Low 22 - 31 mmol/L [facility] Potassium [Moles/Vol] 3.6 mmol/L 3.5 - 5.1 mmol/L [facility] Protein [Mass/Vol] 7.6 g/dL 6.4 - 8.3 g/dL [facility] Sodium [Moles/Vol] 135 mmol/L Low 136 - 145 mmol/L [facility] Urea nitrogen [Mass/Vol] 15 mg/dL 7 - 22 mg/dL [facility] Urea nitrogen/Creatinine [Mass ratio] 44.1 mg/mg High 10.0 - 20.0 [facility] has implemented the eGFR calculation approach that does not have a coefficient for race that conforms to the NKF-ASN Task Force Recommendations. [facility] ECHOCARDIOGRAM COMPLETEon ECHOCARDIOGRAM COMPLETE Patient Info Name: LISA CHAUDHRY Age: 43 years : 1980 Gender: Female Ht: 173 cm Wt: 66 kg BSA: 1.78 m2 Exam Date: 03/26/2024 11:46 AM Patient Status: Outpatient St[employer] Operator: Radha Malik RDCS Exam Type: ECHOCARDIOGRAM COMPLETE Study Info Indications - Valve disease/murmur Attending Physician: CLARENCE WYNN [id number] BMI: 22.20 kg/m2 Procedure(s): Complete two-dimensional, color flow and Doppler transthoracic echocardiogram is performed. Left Ventricle Normal LV size and systolic function. Mild LVH. LVEF greater than 55%. Right Ventricle Normal RV size and systolic function. Left Atria Normal LA size. Right Atria Normal RV size. Aortic Valve Normal aortic valve with no aortic stenosis or regurgitation. Pulmonic Valve Trace pulmonary regurgitation. Mitral Valve Normal mitral valve with trace mitral regurgitation. Tricuspid Valve Trace tricuspid regurgitation with RVSP of 27 mmHg. Pericardium/Pleural No pericardial effusion seen. Left Ventricular Outflow Tract Name Value Normal LVOT 2D LVOT Diameter 2.3 cm LVOT Doppler LVOT Peak Velocity 1.0 m/s LVOT Peak Gradient 4 mmHg LVOT Mean Gradient 2 mmHg LVOT VTI 23 cm LVOT VTI/AV VTI Ratio 0.9 LVOT Stroke Volume 97 ml LVOT Stroke Index 54.49 ml/m2 Pulmonic Valve Name Value Normal PV Doppler PV Peak Velocity 0.93 m/s PV Peak Gradient 3 mmHg Mitral Valve Name Value Normal MV Doppler MV Peak Velocity 0.75 m/s MV Mean Gradient 1 mmHg MV VTI 20 cm MV Decel [facility] 581 cm/s2 MV PHT 35 ms MV Area (PHT) 6.3 cm2 4.0-5.0 MV Area (Cont Eq VTI) 4.9 cm2 MV Area Index (Cont Eq VTI) 2.77 cm2/m2 MV DVI 0.84 MV Diastolic Function MV E Peak Velocity 0.68 m/s MV A Peak Velocity 0.65 m/s MV E/A 1.0 MV Decel Time 120 ms MV Annular TDI MV Septal e' Velocity 5.7 cm/s >=8.0 MV Septal a' Velocity 9.7 cm/s MV E/e' (Septal) 11.9 <=8.0 MV A/a' (Septal) 6.7 MV Lateral s' Velocity 29.0 cm/s MV Lateral e' Velocity 8.0 cm/s >=9.5 MV Lateral a' Velocity 14.4 cm/s MV E/e' (Lateral) 8.5 <=8.0 MV A/a' (Lateral) 4.5 MV e' Average 6.86 cm/s MV a' Average 12.03 cm/s MV E/e' (Average) 10.2 <=13.5 MV A/a' (Average) 5.6 Tricuspid Valve Name Value Normal TV Regurgitation Doppler TR Peak Velocity 2.07 m/s <=2.80 TR Peak Gradient 17 mmHg TR VTI 65.10 cm Estimated PAP/RSVP RA Pressure 10 mmHg <=5 PA Systolic Pressure 27 mmHg <=36 RV Systolic Pressure 27 mmHg <36 TV Diastolic Function TV E Peak Velocity 53 cm/s Aorta Name Value Normal Ascending Aorta Ao Root Diameter (MM) 3.4 cm Ao Root Diam Index (MM) 1.9 cm/m2 Ao Root Diameter (2D) 3.7 cm 2.7-3.3 Ao Root Diam Index (2D) 2.1 cm/m2 1.6-2.0 Aortic Valve Name Value Normal AV 2D/MM AV Cusp Sep (MM) 2.6 cm AV Doppler AV Peak Velocity 1.2 m/s AV Peak Gradient 6 mmHg AV Mean Gradient 3 mmHg AV VTI 25 cm AV Area (Cont Eq VTI) 3.8 cm2 AV Area Index (Cont Eq VTI) 2 cm2/m2 AV Area (Cont Eq Maximino) 3.5 cm2 AV Area Index (Cont Eq Maximino) 2 cm2/m2 LVOT Vmax/AV Vmax 0.85 LVOT VTI/AV VTI Ratio 0.9 AV Regurgitation 2D (more content not included)... Normal [facility] Echo completeOrdered By: Adelfo Bernard on 03-26-2024 Aortic valve area 3.18243 cm [facility] Work Phone: AV mean gradient 3 mmHg [facility] Work Phone: AV peak gradient 5.6644 mmHg [facility] Work Phone: [facility] Work Phone: Echo completeon 03-26-2024 Patient Info Name: LISA CHAUDHRY Age: 43 years : 1980 Gender: Female Ht: 173 cm Wt: 66 kg BSA: 1.78 m2 Exam Date: 03/26/2024 11:46 AM Patient Status: Outpatient St[employer] Operator: Radha Malik SHRUTI Exam Type: ECHOCARDIOGRAM COMPLETE Study Info Indications - Valve disease/murmur Attending Physician: CLARENCE WYNN [phone] BMI: 22.20 kg/m2 Procedure(s): Complete two-dimensional, color flow and Doppler transthoracic echocardiogram is performed. Left Ventricle Normal LV size and systolic function. Mild LVH. LVEF greater than 55%. Right Ventricle Normal RV size and systolic function. Left Atria Normal LA size. Right Atria Normal RV size. Aortic Valve Normal aortic valve with no aortic stenosis or regurgitation. Pulmonic Valve Trace pulmonary regurgitation. Mitral Valve Normal mitral valve with trace mitral regurgitation. Tricuspid Valve Trace tricuspid regurgitation with RVSP of 27 mmHg. Pericardium/Pleural No pericardial effusion seen. Left Ventricular Outflow Tract Name Value Normal LVOT 2D LVOT Diameter 2.3 cm LVOT Doppler LVOT Peak Velocity 1.0 m/s LVOT Peak Gradient 4 mmHg LVOT Mean Gradient 2 mmHg LVOT VTI 23 cm LVOT VTI/AV VTI Ratio 0.9 LVOT Stroke Volume 97 ml LVOT Stroke Index 54.49 ml/m2 Pulmonic Valve Name Value Normal PV Doppler PV Peak Velocity 0.93 m/s PV Peak Gradient 3 mmHg Mitral Valve Name Value Normal MV Doppler MV Peak Velocity 0.75 m/s MV Mean Gradient 1 mmHg MV VTI 20 cm MV Decel [facility] 581 cm/s2 MV PHT 35 ms MV Area (PHT) 6.3 cm2 4.0-5.0 MV Area (Cont Eq VTI) 4.9 cm2 MV Area Index (Cont Eq VTI) 2.77 cm2/m2 MV DVI 0.84 MV Diastolic Function MV E Peak Velocity 0.68 m/s MV A Peak Velocity 0.65 m/s MV E/A 1.0 MV Decel Time 120 ms MV Annular TDI MV Septal e' Velocity 5.7 cm/s >=8.0 MV Septal a' Velocity 9.7 cm/s MV E/e' (Septal) 11.9 <=8.0 MV A/a' (Septal) 6.7 MV Lateral s' Velocity 29.0 cm/s MV Lateral e' Velocity 8.0 cm/s >=9.5 MV Lateral a' Velocity 14.4 cm/s MV E/e' (Lateral) 8.5 <=8.0 MV A/a' (Lateral) 4.5 MV e' Average 6.86 cm/s MV a' Average 12.03 cm/s MV E/e' (Average) 10.2 <=13.5 MV A/a' (Average) 5.6 Tricuspid Valve Name Value Normal TV Regurgitation Doppler TR Peak Velocity 2.07 m/s <=2.80 TR Peak Gradient 17 mmHg TR VTI 65.10 cm (more content not included)... FUJI SYNAPSE Adalid Duran MD - 03/26/2024 Patient Info Name: LISA CHAUDHRY Age: 43 years : 1980 Gender: Female Ht: 173 cm Wt: 66 kg BSA: 1.78 m2 Exam Date: 03/26/2024 11:46 AM Patient Status: Outpatient [employer] Operator: Radha Malik RDCS Exam Type: ECHOCARDIOGRAM COMPLETE Study Info Indications - Valve disease/murmur Attending Physician: CLARENCE WYNN [phone] BMI: 22.20 kg/m2 Procedure(s): Complete two-dimensional, color flow and Doppler transthoracic echocardiogram is performed. Left Ventricle Normal LV size and systolic function. Mild LVH. LVEF greater than 55%. Right Ventricle Normal RV size and systolic function. Left Atria Normal LA size. Right Atria Normal RV size. Aortic Valve Normal aortic valve with no aortic stenosis or regurgitation. Pulmonic Valve Trace pulmonary regurgitation. Mitral Valve Normal mitral valve with trace mitral regurgitation. Tricuspid Valve Trace tricuspid regurgitation with RVSP of 27 mmHg. Pericardium/Pleural No pericardial effusion seen. Left Ventricular Outflow Tract Name Value Normal LVOT 2D LVOT Diameter 2.3 cm LVOT Doppler LVOT Peak Velocity 1.0 m/s LVOT Peak Gradient 4 mmHg LVOT Mean Gradient 2 mmHg LVOT VTI 23 cm LVOT VTI/AV VTI Ratio 0.9 LVOT Stroke Volume 97 ml LVOT Stroke Index 54.49 ml/m2 Pulmonic Valve Name Value Normal PV Doppler PV Peak Velocity 0.93 m/s PV Peak Gradient 3 mmHg Mitral Valve Name Value Normal MV Doppler MV Peak Velocity 0.75 m/s MV Mean Gradient 1 mmHg MV VTI 20 cm MV Decel [facility] 581 cm/s2 MV PHT 35 ms MV Area (PHT) 6.3 cm2 4.0-5.0 MV Area (Cont Eq VTI) 4.9 cm2 MV Area Index (Cont Eq VTI) 2.77 cm2/m2 MV DVI 0.84 MV Diastolic Function MV E Peak Velocity 0.68 m/s MV A Peak Velocity 0.65 m/s MV E/A 1.0 MV Decel Time 120 ms MV Annular TDI MV Septal e' Velocity 5.7 cm/s >=8.0 MV Septal a' Velocity 9.7 cm/s MV E/e' (Septal) 11.9 <=8.0 MV A/a' (Septal) 6.7 MV Lateral s' Velocity 29.0 cm/s MV Lateral e' Velocity 8.0 cm/s >=9.5 MV Lateral a' Velocity 14.4 cm/s MV E/e' (Lateral) 8.5 <=8.0 MV A/a' (Lateral) 4.5 MV e' Average 6.86 cm/s MV a' Average 12.03 cm/s MV E/e' (Average) 10.2 <=13.5 MV A/a' (Average) 5.6 Tricuspid Valve Name Value Normal TV Regurgitation Doppler TR Peak Velocity 2.07 m/s <=2.80 TR Peak Gradient 17 mmHg TR VTI 65.10 cm Estimated PAP/RSVP RA Pressure 10 mmHg <=5 PA Systolic Pressure 27 mmHg <=36 RV Systolic Pressure 27 mmHg <36 TV Diastolic Function TV E Peak Velocity 53 cm/s Aorta Name Value Normal Ascending Aorta Ao Root Diameter (MM) 3.4 cm Ao Root Diam Index (MM) 1.9 cm/m2 Ao Root Diameter (2D) 3.7 cm 2.7-3.3 Ao Root Diam Index (2D) 2.1 cm/m2 1.6-2.0 Aortic Valve Name Value Normal AV 2D/MM AV Cusp Sep (MM) 2.6 cm AV Doppler AV Peak Velocity 1.2 m/s AV Peak Gradient 6 mmHg AV Mean Gradient 3 mmHg AV VTI 25 cm AV Area (Cont Eq VTI) 3.8 cm2 AV Area Index (Cont Eq VTI) 2 cm2/m2 AV Area (Cont Eq Maximino) 3.5 cm2 AV Area Index (Cont Eq Ve (more content not included)... [facility] Gold Topon 03-26-2024 Extra Tube Hold for add-ons. [facility] Comment on above: Auto resulted. [facility] Mg Topon 03-26-2024 Extra Tube Hold for add-ons. [facility] Comment on above: Auto resulted. [facility] LIPASEon 03-26-2024 Lipase [Catalytic activity/Vol] 31 U/L Normal 22-51 [facility] Lipaseon 03-26-2024 Lipase [Catalytic activity/Vol] 31 U/L 22 - 51 U/L [facility] Lipase [Catalytic activity/V ol]on 03-26-2024 Interpretation and review of laboratory results Normal [facility] MAGNESIUM LEVELon 03-26-2024 Magnesium [Mass/Vol] 2.1 mg/dL Normal 1.7-2.8 [facility] MRSA DNA AMPLIFIED PROBEon 1 05-27-2023 MRSA DNA AMPLIFIED PROBE Not detected Normal Not Detected, MRSA NEGATIVE [facility] Comment on above: Performed By: #### [id number] #### [facility] [address] [place] [address] Sai Lara M.D. [id number] MRSA DNA Amplified ProbeOrde red By: Ricky Pride on 03-26-2024 MRSA DNA CHANDANA+probe Ql (Unsp spec) Not detected Not Detected, MRSA NEGATIVE [facility] MRSA DNA CHANDANA+probe Ql (Unsp spec)Ordered By: Ricky Pride on 03-26-2024 Interpretation and review of laboratory results Normal [facility] Magnesium Levelon 03-26-2024 Magnesium [Mass/Vol] 2.1 mg/dL 1.7 - 2 .8 mg/dL [facility] Magnesium [Mass/Vol]on 03-26 Interpretation and review of laboratory results Normal [facility] No Panel Informationon 03-26 Interpretation and review of laboratory results Abnormal [facility] PHOSPHORUSon 03-26-2024 Phosphate [Mass/Vol] 1.9 mg/dL Low 2.5-4.6 [facility] Phosphoruson 03-26-2024 Phosphate [Mass/Vol] 1.9 mg/dL Low 2.5 - 4 .6 mg/dL [facility] VANCOMYCIN LEVEL, RANDOMon 1 05-27-2023 VANCOMYCIN RANDOM 7.8 mcg/mL Normal [facility] Comment on above: Order Comment: As of 01/2022 vancomycin dosing for [facility] inpatients will be done by Bayesian dosing software rather than off traditional trough values. Please contact the site specific inpatient pharmacy before making dose changes off of trough values alone for admitted patients. No established reference range. Vancomycin Level, Randomon 1 05-27-2023 Vancomycin [Mass/Vol] 7.8 mcg/mL [facility] Vancomycin [Mass/Vol]on As of 01/2022 vancom ycin dosing for [facility] inpatients will be done by Bayesian dosing software rather than off traditional trough values. Please contact the site specific inpatient pharmacy before making dose changes off of trough values alone for admitted patients. No established reference range. [facility] BASIC METABOLIC PANELon Anion gap [Moles/Vol] 15 mmol/L Normal 10-20 [facility] Comment on above: Order Comment: [facility] has implemented the eGFR calculation approach that does not have a coefficient for race that conforms to the NKF-ASN Task Force Recommendations. Calcium [Mass/Vol] 8.7 mg/dL Normal 8.4-10.2 [facility] Comment on above: Order Comment: [facility] has implemented the eGFR calculation approach that does not have a coefficient for race that conforms to the NKF-ASN Task Force Recommendations. Chloride [Moles/Vol] 107 mmol/L Normal 98-107 [facility] Comment on above: Order Comment: [facility] has implemented the eGFR calculation approach that does not have a coefficient for race that conforms to the NKF-ASN Task Force Recommendations. Creatinine [Mass/Vol] 0.42 mg/dL Normal 0.40-1.10 [facility] Comment on above: Order Comment: [facility] has implemented the eGFR calculation approach that does not have a coefficient for race that conforms to the NKF-ASN Task Force Recommendations. EGFR 124 mL/min/1.73 m2 Normal >=60 [facility] Comment on above: Order Comment: [facility] has implemented the eGFR calculation approach that does not have a coefficient for race that conforms to the NKF-ASN Task Force Recommendations. Result Comment: Rosario mated GFR was calculated using the 2020 CKD-EPI creatinine equation. Glucose [Mass/Vol] 122 mg/dL Normal 70-126 [facility] Comment on above: Order Comment: [facility] has implemented the eGFR calculation approach that does not have a coefficient for race that conforms to the NKF-ASN Task Force Recommendations. HCO3 (Bld) [Moles/Vol] 20 mmol/L Low 22-31 [facility] Comment on above: Order Comment: [facility] has implemented the eGFR calculation approach that does not have a coefficient for race that conforms to the NKF-ASN Task Force Recommendations. Potassium [Moles/Vol] 4.0 mmol/L Normal 3.5-5.1 [facility] Comment on above: Order Comment: [facility] has implemented the eGFR calculation approach that does not have a coefficient for race that conforms to the NKF-ASN Task Force Recommendations. Sodium [Moles/Vol] 138 mmol/L Normal 136-145 [facility] Comment on above: Order Comment: [facility] has implemented the eGFR calculation approach that does not have a coefficient for race that conforms to the NKF-ASN Task Force Recommendations. Urea nitrogen [Mass/Vol] 13 mg/dL Normal 7-22 [facility] Comment on above: Order Comment: [facility] has implemented the eGFR calculation approach that does not have a coefficient for race that conforms to the NKF-ASN Task Force Recommendations. Urea nitrogen/Creatinine [Mass ratio] 31.0 mg/mg High 10.0-20.0 [facility] Comment on above: Order Comment: [facility] has implemented the eGFR calculation approach that does not have a coefficient for race that conforms to the NKF-ASN Task Force Recommendations. Anion gap [Moles/Vol] 16 mmol/L Normal 10-20 [facility] Comment on above: Order Comment: [facility] has implemented the eGFR calculation approach that does not have a coefficient for race that conforms to the NKF-ASN Task Force Recommendations. Calcium [Mass/Vol] 8.8 mg/dL Normal 8.4-10.2 [facility] Comment on above: Order Comment: [facility] has implemented the eGFR calculation approach that does not have a coefficient for race that conforms to the NKF-ASN Task Force Recommendations. Chloride [Moles/Vol] 106 mmol/L Normal 98-107 [facility] Comment on above: Order Comment: [facility] has implemented the eGFR calculation approach that does not have a coefficient for race that conforms to the NKF-ASN Task Force Recommendations. Creatinine [Mass/Vol] 0.56 mg/dL Normal 0.40-1.10 [facility] Comment on above: Order Comment: [facility] has implemented the eGFR calculation approach that does not have a coefficient for race that conforms to the NKF-ASN Task Force Recommendations. EGFR 116 mL/min/1.73 m2 Normal >=60 [facility] Comment on above: Order Comment: [facility] has implemented the eGFR calculation approach that does not have a coefficient for race that conforms to the NKF-ASN Task Force Recommendations. Result Comment: Rosario mated GFR was calculated using the 2020 CKD-EPI creatinine equation. Glucose [Mass/Vol] 123 mg/dL Normal 70-126 [facility] Comment on above: Order Comment: [facility] has implemented the eGFR calculation approach that does not have a coefficient for race that conforms to the NKF-ASN Task Force Recommendations. HCO3 (Bld) [Moles/Vol] 18 mmol/L Low 22-31 [facility] Comment on above: Order Comment: [facility] has implemented the eGFR calculation approach that does not have a coefficient for race that conforms to the NKF-ASN Task Force Recommendations. Potassium [Moles/Vol] 3.2 mmol/L Low 3.5-5.1 [facility] Comment on above: Order Comment: [facility] has implemented the eGFR calculation approach that does not have a coefficient for race that conforms to the NKF-ASN Task Force Recommendations. Sodium [Moles/Vol] 137 mmol/L Normal 136-145 [facility] Comment on above: Order Comment: [facility] has implemented the eGFR calculation approach that does not have a coefficient for race that conforms to the NKF-ASN Task Force Recommendations. Urea nitrogen [Mass/Vol] 12 mg/dL Normal 7-22 [facility] Comment on above: Order Comment: [facility] has implemented the eGFR calculation approach that does not have a coefficient for race that conforms to the NKF-ASN Task Force Recommendations. Urea nitrogen/Creatinine [Mass ratio] 21.4 mg/mg High 10.0-20.0 [facility] Comment on above: Order Comment: [facility] has implemented the eGFR calculation approach that does not have a coefficient for race that conforms to the NKF-ASN Task Force Recommendations. BLOOD CULTURE AEROBIC/ANAERO Kayleen 03-25-2024 BLOOD CULTURE AEROBIC/ANAEROBIC BLOOD CULTURE No Growth after 5 days Normal [facility] Comment on above: Performed By: #### [id number] ####[facility] [address] [place] [id number] Sai Lara M.D. [id number] BLOOD CULTURE AEROBIC/ANAEROBIC BLOOD CULTURE No Growth after 5 days Normal [facility] Comment on above: Performed By: #### [id number] #### [facility] [address] [place] [id number] Sai Lara M.D. [id number] Basic metabolic 2000 panelon 03-25-2024 Anion gap [Moles/Vol] 15 mmol/L 10 - 20 mmol/L [facility] Calcium [Mass/Vol] 8.7 mg/dL 8.4 - 10. 2 mg/dL [facility] Chloride [Moles/Vol] 107 mmol/L 98 - 10 7 mmol/L [facility] Creatinine [Mass/Vol] 0.42 mg/dL 0.40 - 1.10 mg/dL [facility] GFR/1.73 sq M.predicted CKD-EPI (S/P/Bld) [Vol rate/Area] 124 - PINF [facility] Comment on above: Estimated GFR was ca lculated using the 2020 CKD-EPI creatinine equation. Glucose [Mass/Vol] 122 mg/dL 70 - 126 mg/dL [facility] HCO3 [Moles/Vol] 20 mmol/L Low 22 - 31 mmol/L [facility] Interpretation and review of laboratory results Abnormal [facility] Potassium [Moles/Vol] 4 mmol/L 3.5 - 5.1 mmol/L [facility] Sodium [Moles/Vol] 138 mmol/L 136 - 145 mmol/L [facility] Urea nitrogen [Mass/Vol] 13 mg/dL 7 - 22 mg/dL [facility] Urea nitrogen/Creatinine [Mass ratio] 31 mg/mg High 10.0 - 20.0 [facility] has implemented the eGFR calculation approach that does not have a coefficient for race that conforms to the NKF-ASN Task Force Recommendations. [facility] Anion gap [Moles/Vol] 16 mmol/L 10 - 20 mmol/L [facility] Calcium [Mass/Vol] 8.8 mg/dL 8.4 - 10. 2 mg/dL [facility] Chloride [Moles/Vol] 106 mmol/L 98 - 10 7 mmol/L [facility] Creatinine [Mass/Vol] 0.56 mg/dL 0.40 - 1.10 mg/dL [facility] GFR/1.73 sq M.predicted CKD-EPI (S/P/Bld) [Vol rate/Area] 116 - PINF [facility] Comment on above: Estimated GFR was ca lculated using the 2020 CKD-EPI creatinine equation. Glucose [Mass/Vol] 123 mg/dL 70 - 126 mg/dL [facility] HCO3 [Moles/Vol] 18 mmol/L Low 22 - 31 mmol/L [facility] Interpretation and review of laboratory results Abnormal [facility] Potassium [Moles/Vol] 3.2 mmol/L Low 3.5 - 5.1 mmol/L [facility] Sodium [Moles/Vol] 137 mmol/L 136 - 145 mmol/L [facility] Urea nitrogen [Mass/Vol] 12 mg/dL 7 - 22 mg/dL [facility] Urea nitrogen/Creatinine [Mass ratio] 21.4 mg/mg High 10.0 - 20.0 [facility] has implemented the eGFR calculation approach that does not have a coefficient for race that conforms to the NKF-ASN Task Force Recommendations. [facility] Beta HCG ( test) Ql Ordered By: Anita Yip on 03-25-2024 Interpretation and review of laboratory results Normal [facility] CBC Auto Differentialon Basophils (Bld) [#/Vol] 0 10*3/uL [facility] Basophils/100 WBC (Bld) 0.1 % 0.0 - 3.0 % [facility] Eosinophils (Bld) [#/Vol] 0 10*3/uL [facility] Eosinophils/100 WBC (Bld) 0.1 % 0.0 - 4.0 % [facility] Erythrocyte distribution width (RBC) [Entitic vol] 14.4 % 11.5 - 14.5 % [facility] Hematocrit (Bld) [Volume fraction] 49.9 % High 36.0 - 46.0 % [facility] Hemoglobin (Bld) [Mass/Vol] 16.1 g/dL High 12.0 - 16.0 g/dL [facility] Interpretation and review of laboratory results Abnormal [facility] Lymphocytes (Bld) [#/Vol] 1.3 10*3/uL [facility] Lymphocytes/100 WBC (Bld) 7.8 % Low 17.6 - 49.6 % [facility] MCH (RBC) [Entitic mass] 29.6 pg 28.0 - 32.0 pg [facility] MCHC (RBC) [Mass/Vol] 32.3 g/dL Low 33.0 - 37.0 g/dL [facility] MCV (RBC) [Entitic vol] 91.5 fL 80.0 - 99.0 fL [facility] Monocytes (Bld) [#/Vol] 1.5 10*3/uL High [facility] Monocytes/100 WBC (Bld) 8.5 % 4.1 - 12.4 % [facility] Neutrophils (Bld) [#/Vol] 14.2 10*3/uL High [facility] Neutrophils/100 WBC (Bld) 83.5 % High 39.4 - 72.5 % [facility] Platelet mean volume (Bld) [Entitic vol] 8.3 fL Low 9.4 - 12.4 fL [facility] Platelets (Bld) [#/Vol] 310 10*3/uL [facility] RBC (Bld) [#/Vol] 5.45 10*6/uL High [facility] ealt WBC (Bld) [#/Vol] 17 10*3/uL [facility] CBC WITH AUTO DIFFERENTIALon 03-25-2024 BASOPHILS ABSOLUTE COUNT 0.00 K/mcL Normal 0.00-0.30 [facility] Basophils/100 WBC (Bld) 0.1 % Normal 0.0-3.0 [facility] Eosinophils (Bld) [#/Vol] 0.00 10*3/uL Normal 0.00-0.50 [facility] Eosinophils/100 WBC (Bld) 0.1 % Normal 0.0-4.0 [facility] Erythrocyte distribution width (RBC) [Ratio] 14.4 % Normal 11.5-14.5 [facility] Hematocrit (Bld) [Volume fraction] 49.9 % High 36.0-46.0 [facility] Hemoglobin (Bld) [Mass/Vol] 16.1 g/dL High 12.0-16.0 [facility] Lymphocytes (Bld) [#/Vol] 1.30 10*3/uL Normal 0.90-4.00 [facility] Lymphocytes/100 WBC (Bld) 7.8 % Low 17.6-49.6 [facility] MCH (RBC) [Entitic mass] 29.6 pg Normal 28.0-32.0 [facility] MCV (RBC) [Entitic vol] 91.5 fL Normal 80.0-99.0 [facility] MEAN CORPUSCULAR HEMOGLOBIN CONC 32.3 g/dL Low 33.0-37.0 [facility] Monocytes (Bld) [#/Vol] 1.50 10*3/uL High 0.30-0.90 [facility] Monocytes/100 WBC (Bld) 8.5 % Normal 4.1-12.4 [facility] NEUTROPHILS ABSOLUTE COUNT 14.20 K/mcL High 1.70-7.00 [facility] Neutrophils/100 WBC (Bld) 83.5 % High 39.4-72.5 [facility] Platelet mean volume (Bld) [Entitic vol] 8.3 fL Low 9.4-12.4 [facility] Platelets (Bld) [#/Vol] 310 10*3/uL Normal 120-400 [facility] RBC (Bld) [#/Vol] 5.45 10*6/uL High 4.00-5.20 [facility] WBC (Bld) [#/Vol] 17.00 10*3/uL High 4.80-10.80 [facility] CRP [Mass/Vol]on 03-25-2024 Interpretation and review of laboratory results Normal [facility] CRP, INFLAMMATIONon 03-25-20 CRP (INFLAMMATION) < Normal 0.0-1.0 [facility] CRP, Inflammationon 03-25-20 CRP [Mass/Vol] mg/L 0.0 - 1.0 mg/L [facility] EKG 12-leadon 03-25-2024 Atrial Rate 58 BPM [facility] P [place] 59 degrees [facility] P-R Interval 154 ms [facility] Q-T Interval 438 ms [facility] QRS Duration 74 ms [facility] QTC Calculation (Bezet) 429 ms [facility] R [place] 32 degrees [facility] T [place] 26 degrees [facility] Ventricular Rate 58 BPM [facility] bradycardia wi th sinus arrhythmia Otherwise normal ECG When compared with ECG of 16-JUL-2007 19:15, Minimal criteria for Anteroseptal infarct are no longer Present Nonspecific T wave abnormality now evident in Inferior leads ECG Cart Interpretation see physician note for interpretation. Confirmed by [facility] Rachel, Cassie Ramos ([id number]), editor book July Rosario ([id number]) on 03/25/2024 7:51:34 AM MUSE [facility] Free T4 [Mass/Vol]on 024 Interpretation and review of laboratory results Normal [facility] Interpretation and review of laboratory results Normal [facility] Gold Topon 03-25-2024 Extra Tube Hold for add-ons. [facility] Comment on above: Auto resulted. [facility] HbA1c (Bld) [Mass fraction]o n 03-25-2024 Average glucose Estimated from glycated hemoglobin (Bld) [Mass/Vol] 117 mg/dL High 74 - 114 mg/dL [facility] Interpretation and review of laboratory results Abnormal [facility] Normal: 4.2% - 5.6% Increased risk for diabetes: 5.7% - 6.4% Diabetes: >= 6.5% Pediatrics: No established reference range Estimated average glucose: 74-114 mg/dL [facility] Hemoglobin A1con 03-25-2024 HbA1c (Bld) [Mass fraction] 5.7 % High 4.2 - 5.6 % [facility] LACTIC ACID, PLASMAon 2023 LACTIC ACID, PLASMA 1.1 mmol/L Normal 0.5-2.2 [facility] Lactate [Moles/Vol]Ordered B y: [place] Trujillo on 03-25-2024 Interpretation and review of laboratory results Normal [facility] Lactic Acid, PlasmaOrdered B y: [place] Trujillo on 03-25-2024 Lactate [Moles/Vol] 1.1 mmol/L 0.5 - 2. 2 mmol/L [facility] MAGNESIUM LEVELon 03-25-2024 Magnesium [Mass/Vol] 1.9 mg/dL Normal 1.7-2.8 [facility] Magnesium Levelon 03-25-2024 Magnesium [Mass/Vol] 1.9 mg/dL 1.7 - 2 .8 mg/dL [facility] No Panel Informationon 03-25 Interpretation and review of laboratory results Normal [facility] PHOSPHORUSon 03-25-2024 Phosphate [Mass/Vol] 2.5 mg/dL Normal 2.5-4.6 [facility] PROCALCITONINon 03-25-2024 PROCALCITONIN 0.06 ng/ml Normal <0.50 [facility] Comment on above: Order Comment: Resul ts <0.50 ng/ml represent a low risk of severe sepsis and/or septic shock. Performed By: #### [id number] ####[facility] [address] [place] [address] Sai Lara M.D. [id number] Phosphoruson 03-25-2024 Phosphate [Mass/Vol] 2.5 mg/dL 2.5 - 4 .6 mg/dL [facility] Procalcitoninon 03-25-2024 Procalcitonin [Mass/Vol] 0.06 ng/mL NINF - 0.50 ng/ml [facility] Procalcitonin [Mass/Vol]on 05-26-2023 Interpretation and review of laboratory results Normal [facility] Results <0.50 ng/ml represent a low risk of severe sepsis and/or septic shock. [facility] T4, FREEon 03-25-2024 Free T4 [Mass/Vol] 1.2 ng/dL Normal 0.7-1.7 [facility] Comment on above: Performed By: #### [id number] #### [facility] [address] [place] [address] Sai Lara M.D. [id number] T4, Freeon 03-25-2024 Free T4 [Mass/Vol] 1.2 ng/dL 0.7 - 1.7 ng/dL [facility] Free T4 [Mass/Vol] 1.3 ng/dL 0.7 - 1.7 ng/dL [facility] hCG, Serum, QualitativeOrder ed By: Anita Yip on 03-25-2024 Beta HCG ( test) Ql Negative Negative [facility] ALCOHOL, MEDICALon ALCOHOL MEDICAL < Normal <10.0 [facility] Comment on above: Result Comment: Alco hol cutoff: <10.00 mg/dL = None Detected AMMONIAon 03-24-2024 AMMONIA 26 micromol/L Normal 9-35 [facility] Ammoniaon 03-24-2024 Ammonia (P) [Mass/Vol] 26 ug/dL [facility] Ammonia (P) [Mass/Vol]on Interpretation and review of laboratory results Normal [facility] BLOOD GAS, VENOUSon 03-24-20 FIO2 TEXT FROM QUESTION 21 %/L Normal [facility] Oxygen saturation in Blood 87.0 % High 40.0-70.0 [facility] PCO2 VENOUS 34.4 mm Hg Low 41.0-51.0 [facility] PH VENOUS 7.41 Normal 7.31-7.41 [facility] PO2 VENOUS 54 mm Hg High 25-40 [facility] BRAIN NATRIURETIC PEPTIDE - VWHon 03-24-2024 Natriuretic peptide B (Bld) [Mass/Vol] 123 pg/mL High 15-100 [facility] CBC Auto Differentialon Basophils (Bld) [#/Vol] 0 10*3/uL [facility] Basophils/100 WBC (Bld) 0.2 % 0.0 - 3.0 % [facility] Eosinophils (Bld) [#/Vol] 0 10*3/uL [facility] Eosinophils/100 WBC (Bld) 0.1 % 0.0 - 4.0 % [facility] Erythrocyte distribution width (RBC) [Entitic vol] 14.3 % 11.5 - 14.5 % [facility] Hematocrit (Bld) [Volume fraction] 50.2 % High 36.0 - 46.0 % [facility] Hemoglobin (Bld) [Mass/Vol] 16.5 g/dL High 12.0 - 16.0 g/dL [facility] Interpretation and review of laboratory results Abnormal [facility] Lymphocytes (Bld) [#/Vol] 0.7 10*3/uL Low [facility] Lymphocytes/100 WBC (Bld) 5.5 % Low 17.6 - 49.6 % [facility] MCH (RBC) [Entitic mass] 29.7 pg 28.0 - 32.0 pg [facility] MCHC (RBC) [Mass/Vol] 32.9 g/dL Low 33.0 - 37.0 g/dL [facility] MCV (RBC) [Entitic vol] 90.3 fL 80.0 - 99.0 fL [facility] Monocytes (Bld) [#/Vol] 0.2 10*3/uL Low [facility] Monocytes/100 WBC (Bld) 1.8 % Low 4.1 - 12.4 % [facility] Neutrophils (Bld) [#/Vol] 11.5 10*3/uL High [facility] Neutrophils/100 WBC (Bld) 92.4 % High 39.4 - 72.5 % [facility] Platelet mean volume (Bld) [Entitic vol] 8.3 fL Low 9.4 - 12.4 fL [facility] Platelets (Bld) [#/Vol] 303 10*3/uL [facility] RBC (Bld) [#/Vol] 5.56 10*6/uL [facility] WBC (Bld) [#/Vol] 12.4 10*3/uL [facility] CBC WITH AUTO DIFFERENTIALon 03-24-2024 BASOPHILS ABSOLUTE COUNT 0.00 K/mcL Normal 0.00-0.30 [facility] Basophils/100 WBC (Bld) 0.2 % Normal 0.0-3.0 [facility] Eosinophils (Bld) [#/Vol] 0.00 10*3/uL Normal 0.00-0.50 [facility] Eosinophils/100 WBC (Bld) 0.1 % Normal 0.0-4.0 [facility] Erythrocyte distribution width (RBC) [Ratio] 14.3 % Normal 11.5-14.5 [facility] Hematocrit (Bld) [Volume fraction] 50.2 % High 36.0-46.0 [facility] Hemoglobin (Bld) [Mass/Vol] 16.5 g/dL High 12.0-16.0 [facility] Lymphocytes (Bld) [#/Vol] 0.70 10*3/uL Low 0.90-4.00 [facility] Lymphocytes/100 WBC (Bld) 5.5 % Low 17.6-49.6 [facility] MCH (RBC) [Entitic mass] 29.7 pg Normal 28.0-32.0 [facility] MCV (RBC) [Entitic vol] 90.3 fL Normal 80.0-99.0 [facility] MEAN CORPUSCULAR HEMOGLOBIN CONC 32.9 g/dL Low 33.0-37.0 [facility] Monocytes (Bld) [#/Vol] 0.20 10*3/uL Low 0.30-0.90 [facility] Monocytes/100 WBC (Bld) 1.8 % Low 4.1-12.4 [facility] NEUTROPHILS ABSOLUTE COUNT 11.50 K/mcL High 1.70-7.00 [facility] Neutrophils/100 WBC (Bld) 92.4 % High 39.4-72.5 [facility] Platelet mean volume (Bld) [Entitic vol] 8.3 fL Low 9.4-12.4 [facility] Platelets (Bld) [#/Vol] 303 10*3/uL Normal 120-400 [facility] RBC (Bld) [#/Vol] 5.56 10*6/uL High 4.00-5.20 [facility] WBC (Bld) [#/Vol] 12.40 10*3/uL High 4.80-10.80 [facility] COMPREHENSIVE METABOLIC PANE Tariq 03-24-2024 Albumin [Mass/Vol] 4.2 g/dL Normal 3.5-5.0 [facility] Comment on above: Order Comment: [facility] has implemented the eGFR calculation approach that does not have a coefficient for race that conforms to the NKF-ASN Task Force Recommendations. ALP [Catalytic activity/Vol] 96 U/L Normal 38-126 [facility] Comment on above: Order Comment: [facility] has implemented the eGFR calculation approach that does not have a coefficient for race that conforms to the NKF-ASN Task Force Recommendations. ALT [Catalytic activity/Vol] 19 U/L Normal 0-35 U/L [facility] Comment on above: Order Comment: [facility] has implemented the eGFR calculation approach that does not have a coefficient for race that conforms to the NKF-ASN Task Force Recommendations. Anion gap [Moles/Vol] 17 mmol/L Normal 10-20 [facility] Comment on above: Order Comment: [facility] has implemented the eGFR calculation approach that does not have a coefficient for race that conforms to the NKF-ASN Task Force Recommendations. AST [Catalytic activity/Vol] 24 U/L Normal 0-35 U/L [facility] Comment on above: Order Comment: [facility] has implemented the eGFR calculation approach that does not have a coefficient for race that conforms to the NKF-ASN Task Force Recommendations. Bilirubin [Mass/Vol] 0.5 mg/dL Normal 0.3-1.2 [facility] Comment on above: Order Comment: [facility] has implemented the eGFR calculation approach that does not have a coefficient for race that conforms to the NKF-ASN Task Force Recommendations. Calcium [Mass/Vol] 9.6 mg/dL Normal 8.4-10.2 [facility] Comment on above: Order Comment: [facility] has implemented the eGFR calculation approach that does not have a coefficient for race that conforms to the NKF-ASN Task Force Recommendations. Chloride [Moles/Vol] 105 mmol/L Normal 98-107 [facility] Comment on above: Order Comment: [facility] has implemented the eGFR calculation approach that does not have a coefficient for race that conforms to the NKF-ASN Task Force Recommendations. Creatinine [Mass/Vol] 0.68 mg/dL Normal 0.40-1.10 [facility] Comment on above: Order Comment: [facility] has implemented the eGFR calculation approach that does not have a coefficient for race that conforms to the NKF-ASN Task Force Recommendations. EGFR 110 mL/min/1.73 m2 Normal >=60 [facility] Comment on above: Order Comment: [facility] has implemented the eGFR calculation approach that does not have a coefficient for race that conforms to the NKF-ASN Task Force Recommendations. Result Comment: Rosario mated GFR was calculated using the 2020 CKD-EPI creatinine equation. Glucose [Mass/Vol] 145 mg/dL High 70-126 [facility] Comment on above: Order Comment: [facility] has implemented the eGFR calculation approach that does not have a coefficient for race that conforms to the NKF-ASN Task Force Recommendations. HCO3 (Bld) [Moles/Vol] 20 mmol/L Low 22-31 [facility] Comment on above: Order Comment: [facility] has implemented the eGFR calculation approach that does not have a coefficient for race that conforms to the NKF-ASN Task Force Recommendations. Potassium [Moles/Vol] 3.5 mmol/L Normal 3.5-5.1 [facility] Comment on above: Order Comment: [facility] has implemented the eGFR calculation approach that does not have a coefficient for race that conforms to the NKF-ASN Task Force Recommendations. Protein [Mass/Vol] 9.0 g/dL High 6.4-8.3 [facility] Comment on above: Order Comment: [facility] has implemented the eGFR calculation approach that does not have a coefficient for race that conforms to the NKF-ASN Task Force Recommendations. Sodium [Moles/Vol] 138 mmol/L Normal 136-145 [facility] Comment on above: Order Comment: [facility] has implemented the eGFR calculation approach that does not have a coefficient for race that conforms to the NKF-ASN Task Force Recommendations. Urea nitrogen [Mass/Vol] 13 mg/dL Normal 7-22 [facility] Comment on above: Order Comment: [facility] has implemented the eGFR calculation approach that does not have a coefficient for race that conforms to the NKF-ASN Task Force Recommendations. Urea nitrogen/Creatinine [Mass ratio] 19.1 mg/mg Normal 10.0-20.0 [facility] Comment on above: Order Comment: [facility] has implemented the eGFR calculation approach that does not have a coefficient for race that conforms to the NKF-ASN Task Force Recommendations. CT HEAD OR BRAIN WITHOUT CON TRASTon 03-24-2024 CT HEAD OR BRAIN WITHOUT CONTRAST EXAMINATION: CT HEAD, without contrast CLINICAL INFORMATION: Mental status change, unknown cause; AMS COMPARISON: None. Technique: Contiguous transaxial images were obtained from the skullbase to the vertex. Sagittal and coronal reformatted images are available for review. This scan is performed using automatic exposure control radiation dose reduction algorithms in order to maintain diagnostic quality images, while using lowest possible patient dosed techniques FINDINGS: No acute intraparenchymal hemorrhage, extra-axial fluid collection, mass effect or midline shift. The ventricles and sulci are normal in size. The paez-white matter differentiation is intact. The paranasal sinuses, mastoid air cells, and middle ear cavities are well aerated. IMPRESSION: IMPRESSION: No acute large vessel infarct, acute intracranial hemorrhage, or intracranial mass lesion. Electronically signed by: Rubén Yost MD 03/24/2024 06:40 PM EST RP Dictated by: MIKE MARIEE IN [employer] on FriMar 24, 2024 6:40:46 PM EST Transcribed by: MIKE MARIEE IN [employer] on FriMar 24, 2024 6:40:46 PM EST Finalized by: MIKE MAIREE IN [employer] on FriMar 24, 2024 6:40:46 PM EST Normal [facility] Comment on above: Order Comment: Injur y/Trauma or Illness?:Illness/OtherHow long have you had these symptoms (acute/chronic)?:AcuteReason for exam?:AMSType of Exam?:InitialAdditional signs and symptoms?:AMS CT Head WO contraston 2023 IMPRESSION: No acute large vessel infarct, acute intracranial hemorrhage, or intracranial mass lesion. Electronically signed by: Rubén Yost MD 03/24/2024 06:40 PM EST RP [employer] EXAMINATION: CT HEAD, without contrast CLINICAL INFORMATION: Mental status change, unknown cause; AMS COMPARISON: None. Technique: Contiguous transaxial images were obtained from the skullbase to the vertex. Sagittal and coronal reformatted images are available for review. This scan is performed using automatic exposure control radiation dose reduction algorithms in order to maintain diagnostic quality images, while using lowest possible patient dosed techniques FINDINGS: No acute intraparenchymal hemorrhage, extra-axial fluid collection, mass effect or midline shift. The ventricles and sulci are normal in size. The paez-white matter differentiation is intact. The paranasal sinuses, mastoid air cells, and middle ear cavities are well aerated. [employer] Rubén Yost MD - 03/24/2024 EXAMINATION: CT HEAD, without contrast CLINICAL INFORMATION: Mental status change, unknown cause; AMS COMPARISON: None. Technique: Contiguous transaxial images were obtained from the skullbase to the vertex. Sagittal and coronal reformatted images are available for review. This scan is performed using automatic exposure control radiation dose reduction algorithms in order to maintain diagnostic quality images, while using lowest possible patient dosed techniques FINDINGS: No acute intraparenchymal hemorrhage, extra-axial fluid collection, mass effect or midline shift. The ventricles and sulci are normal in size. The paez-white matter differentiation is intact. The paranasal sinuses, mastoid air cells, and middle ear cavities are well aerated. IMPRESSION: IMPRESSION: No acute large vessel infarct, acute intracranial hemorrhage, or intracranial mass lesion. Electronically signed by: Rubén Yost MD 03/24/2024 06:40 PM [facility] [place], [place] [facility] Radiology Study observation (narrative) [facility] CT Head WO contrastOrdered B y: Rubén Yost on 03-24-2024 [facility] Work Phone: Comprehensive metabolic 2000 panelon 03-24-2024 Albumin [Mass/Vol] 4.2 g/dL 3.5 - 5.0 g/dL [facility] ALP [Catalytic activity/Vol] 96 U/L 38 - 126 U/L [facility] ALT [Catalytic activity/Vol] 19 U/L 0-35 U/L [facility] Anion gap [Moles/Vol] 17 mmol/L 10 - 20 mmol/L [facility] AST [Catalytic activity/Vol] 24 U/L 0-35 U/L [facility] Bilirubin [Mass/Vol] 0.5 mg/dL 0.3 - 1 .2 mg/dL [facility] Calcium [Mass/Vol] 9.6 mg/dL 8.4 - 10. 2 mg/dL [facility] Chloride [Moles/Vol] 105 mmol/L 98 - 10 7 mmol/L [facility] Creatinine [Mass/Vol] 0.68 mg/dL 0.40 - 1.10 mg/dL [facility] GFR/1.73 sq M.predicted CKD-EPI (S/P/Bld) [Vol rate/Area] 110 - PINF [facility] Comment on above: Estimated GFR was ca lculated using the 2020 CKD-EPI creatinine equation. Glucose [Mass/Vol] 145 mg/dL High 70 - 126 mg/dL [facility] HCO3 [Moles/Vol] 20 mmol/L Low 22 - 31 mmol/L [facility] Interpretation and review of laboratory results Abnormal [facility] Potassium [Moles/Vol] 3.5 mmol/L 3.5 - 5.1 mmol/L [facility] Protein [Mass/Vol] 9 g/dL High 6.4 - 8.3 g/dL [facility] Sodium [Moles/Vol] 138 mmol/L 136 - 145 mmol/L [facility] Urea nitrogen [Mass/Vol] 13 mg/dL 7 - 22 mg/dL [facility] Urea nitrogen/Creatinine [Mass ratio] 19.1 mg/mg 10.0 - 20.0 [facility] has implemented the eGFR calculation approach that does not have a coefficient for race that conforms to the NKF-ASN Task Force Recommendations. [facility] Critical Careon 03-24-2024 Hiwot Hoover CNP 03/24/2024 8:20 PM Critical Care Performed by: Hiwot Hoover CNP Authorized by: Hiwot Hoover CNP Total critical care time: 45 minutes Critical care time was exclusive of separately billable procedures and treating other patients. Critical care was necessary to treat or prevent imminent or life-threatening deterioration of the following conditions: dehydration. Critical care was time spent personally by me on the following activities: blood draw for specimens, development of treatment plan with patient or surrogate, discussions with primary provider, interpretation of cardiac output measurements, evaluation of patient's response to treatment, examination of patient, obtaining history from patient or surrogate, ordering and performing treatments and interventions, ordering and review of laboratory studies, ordering and review of radiographic studies, re-evaluation of patient's condition, review of old charts and vascular access procedures. [facility] DRUGS OF ABUSE SCREEN, URINE on 03-24-2024 AMPHETAMINE SCREEN, URINE Negative Normal Negative [facility] Comment on above: Order Comment: Scree n results should be used for treatment purposes only. Result Comment: Urin e Amphetamines Cutoff: <500 ng/mL = None Detected. BARBITURATE SCREEN URINE Negative Normal Negative [facility] Comment on above: Order Comment: Scree n results should be used for treatment purposes only. Result Comment: Urin e Barbiturates Cutoff: <200 ng/mL = None Detected. BENZODIAZEPINE SCREEN, URINE Negative Normal Negative [facility] Comment on above: Order Comment: Scree n results should be used for treatment purposes only. Result Comment: Urin e Benzodiazepines Cutoff: <200 ng/mL = None Detected. CANNABINOID SCREEN URINE Negative Normal Negative [facility] Comment on above: Order Comment: Scree n results should be used for treatment purposes only. Result Comment: Urin e Cannabinoids cutoff: <50 ng/mL = None Detected. COCAINE, SCREEN URINE Negative Normal Negative [facility] Comment on above: Order Comment: Scree n results should be used for treatment purposes only. Result Comment: Urin e Cocaine Cutoff: 150 ng/mL = None Detected. METHADONE SCREEN, URINE Negative Normal Negative [facility] Comment on above: Order Comment: Scree n results should be used for treatment purposes only. Result Comment: Urin e Methadone Cutoff: <100 ng/mL = None Deteced. METHAMPHETAMINE SCREEN Negative Normal Negative [facility] Comment on above: Order Comment: Scree n results should be used for treatment purposes only. Result Comment: Urin e Methamphetamines Cutoff: <500 ng/mL = None Detected. OPIATE SCREEN URINE Negative Normal Negative [facility] Comment on above: Order Comment: Scree n results should be used for treatment purposes only. Result Comment: Urin e Opiates Cutoff: 300 ng/mL = None Detected. TRICYCLICS SCREEN Negative Normal Negative [facility] Comment on above: Order Comment: Scree n results should be used for treatment purposes only. Result Comment: Urin e Tricyclic Antidepressants Cutoff: <1000 ng/mL = None Detected. ED Prov Noteon 03-24-2024 ED [facility] MED SURG ATTENDING NOTE: NAME: Lisa Chaudhry CSN: [id number] 43 y.o. PCP: No, Physician History: Chief Complaint: Withdrawal and Altered Mental Status HPI: The history was obtained from the patient. Lisa is a 43 y.o. female who presents with a chief complaint of Withdrawal and Altered Mental Status. Past medical history of drug abuse. 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 Patient was being seen there for opioid abuse. States she last used approximately 3 days ago. Started Suboxone 2 days ago. Patient started having withdrawal symptoms today. She was lethargic and unresponsive upon arrival. Per report from's facility patient had been super sleepy, weak, emotionally labile, and had a bad color . Nursing staff brought patient in per wheelchair patient is unresponsive on cot. Minimally responsive only after several sternal rubs. 2 mg Narcan given due to decreased mental awareness and history of drug abuse. Patient remains lethargic but is responsive to questions asked. Patient did vomit after Narcan dose. Vital signs are stable. She is hypertensive 189/89. Afebrile. Nontachycardic. 98% on room air. Mqitw-bu-lepl glucose was checked 133. Patient is in no respiratory distress. PMHx: Past Medical History: Diagnosis Date Opiate abuse, continuous (HCC) PMSx: No past surgical history on file. FAM. Hx: No family history on file. SOC. Hx: Social History Socioeconomic History Marital status: Single Substance and Sexual Activity Drug use: Yes Types: Opiates, Heroin Social Drivers of Health Financial Resource Strain: Low Risk (06/17/2023) Received from [facility] Overall Financial Resource Strain (CARDIA) Difficulty of Paying Living Expenses: Not very hard Food Insecurity: Food Insecurity Present (06/17/2023) Received from [facility] Hunger Vital Sign Worried About Running Out of Food in the Last Year: Sometimes true Ran Out of Food in the Last Year: Sometimes true Transportation Needs: No Transportation Needs (06/17/2023) Received from [facility] PRAPARE - Transportation Lack of Transportation (Medical): No Lack of Transportation (Non-Medical): No Housing Stability: Unknown (06/17/2023) Received from [facility] Housing Stability Vital Sign Unable to Pay for Housing in the Last Year: Patient refused Number of Places Lived in the Last Year: 1 Unstable Housing in the Last Year: Patient refused MEDs: Previous Medications Medication Sig escitalopram oxalate (LEXAPRO) 5 MG tablet buprenorphine-nalOXone (SUBOXONE) 8-[address] 1 (one) each (1 Film total) under the tongue daily . busPIRone (BUSPAR) 10 MG tablet Take 1 (one) tablet (10 mg total) by mouth every night at bedtime . levETIRAcetam (KEPPRA) 500 MG tablet Take 1 (one) tablet (500 mg total) by mouth 2 (two) times a day . ALL: Allergies Allergen Reactions Latex Rash Codeine Other (See Comments), Unknown and GI Intolerance Reaction Unknown: Please investigate and enter into EPIC. Other reaction(s): Vomiting Reaction Unknown: Please investigate and enter into EPIC. Reaction Unknown: Please investigate and enter into EPIC. Other reaction(s): Vomiting Reaction Unknown: Please investigate and enter into EPIC. ROS: Review of Systems Unable to perform ROS: Patient unresponsive Constitutional: Negative for chills and fever. HENT: Negative for ear pain and sore throat. Eyes: Negative for discharge and redness. Respiratory: Negative for cough, chest tightness, shortness of breath and wheezing. Cardiovascular: Negative for chest pain, palpitations and leg swelling. Gastrointestinal: Negative for abdominal distention, abdominal pain, diarrhea and vomiting. Genitourinary: Negative for dysuria, flank pain, frequency, hematuria and urgency. Musculoskeletal: Negative for back pain and neck pain. Skin: Negative for pallor and rash. Neurological: Negative for dizziness, light-headedness and headaches. Psychiatric/Behavioral: Negative for agitation and behavioral problems. The patient is not nervous/anxious. Positives and pertinent negatives as per HPI. All other systems were reviewed and are negative. Physical Exam: Patient Vitals for the past 24 hrs: BP Temp Temp src Pulse Resp SpO2 Weight 03/24/242012 -- 98.7 degrees F (37.1 degrees C) Temporal 94 (!) 28 100 % -- 03/24/24 1930 (!) 150/98 -- -- 85 (!) 32 -- -- 03/24/24 1900 (!) 153/98 -- -- 94 (!) 32 -- -- 03/24/24 1830 (!) 177/96 -- -- 62 (!) 27 -- -- 03/24/24 1800 (!) 173/88 -- -- 65 16 100 % -- 03/24/24 1745 (!) 168/91 -- -- 65 (!) 11 100 % -- 03/24/24 1730 (!) 158/88 -- -- 72 (!) 29 100 % -- 03/24/24 1652 (!) 174/98 -- -- (!) 57 (!) 27 100 % -- 03/24/24 1600 (!) 176/102 -- -- (!) 57 (!) 21 100 % -- 03/24/24 1530 (!) 189/89 -- -- 61 (!) 26 98 % -- 03/24/24 1515 (!) 171/107 -- -- (!) 59 (!) 22 99 % -- 03/24/24 1511 (!) 1 (more content not included)... Normal [facility] EKGon 03-24-2024 [facility] ETOH (Medical Alcohol)on Ethanol [Mass/Vol] mg/dL NINF - 10 .0 mg/dL [facility] Comment on above: Alcohol cutoff: <10. 00 mg/dL = None Detected Ethanol [Mass/Vol]on 024 Interpretation and review of laboratory results Normal [facility] Gas panel (BldV)on CO2 (BldV) [Partial pressure] 34.4 mm[Hg] Low [facility] Inhaled oxygen concentration 21 %/L [facility] Interpretation and review of laboratory results Abnormal [facility] Oxygen (BldV) [Partial pressure] 54 mm[Hg] High [facility] Oxygen saturation in Venous blood 87 % High 40.0 - 70.0 % [facility] pH (BldV) 7.41 [pH] 7.31 - 7.41 [facility] Glucose (Bld) [Mass/Vol]on 1 05-25-2023 Glucose [Mass/Vol] 133 mg/dL High 65 - 99 mg/dL [facility] Interpretation and review of laboratory results Abnormal [facility] Gold Topon 03-24-2024 Extra Tube Hold for add-ons. [facility] Comment on above: Auto resulted. [facility] Extra Tube Hold for add-ons. [facility] Comment on above: Auto resulted. [facility] H AND Maxx 03-24-2024 H AND P Lisa Chaudhry is a 43 y.o. female Date: 03/24/2024 Physicians: No, Physician (Family); No ref. provider found (Referring) Chief Complaint: Chief Complaint Patient presents with Withdrawal Altered Mental Status Reason For Consult: Altered mental status Admitting Provider: Dr. Wynn Quality Measures Admitted with these risk variables:None. Please see assessment and plan for further details. HISTORY: Lisa Chaudhry is a 43 y.o. female with past medical history of opioid abuse, gastroenteritis, asthma, hepatitis, endometriosis who presented to the emergency department from drug rehab facility for altered mental status. On arrival patient was reportedly somnolent, was arousable to sternal rub and was given a dose of Narcan and became more arousable. Workup in the emergency department revealed slightly elevated white blood cell count with stable H&H, chemistry panel was essentially unremarkable glucose 145 troponin negative alcohol negative urine drug screen unremarkable chest x-ray and CT head were unremarkable as well EKG sinus rhythm. After the Narcan was given patient became slightly more arousable but since then has become sleepy again. She did have episode of nausea and vomiting after the Narcan and was given antiemetic which has helped resolve the vomiting. Request was made by the attending physician to admit the patient for observation overnight as needed Narcan. Patient seen evaluated bedside in the emergency department. Patient is alert talkative easily arousable to verbal stimuli. Patient denies any recent drug use, reportedly she told the ER that her last dose of heroin was 3 days ago but she has a negative toxicology screen here. Patient states that she took no additional medications, she was being given Suboxone at the treatment facility, denies any recent alcohol use. No suicidal or homicidal ideation. Patient denies any headache, no unilateral extremity weakness or pain. Denies any chest pain, no abdominal pain, no shortness of breath, denies any diarrhea no fever orchills. I discussed all results with the patient and need to admit for observation as needed Narcan as needed for suspected opiate use. Patient in agreement with plan of care. Patient request full code CODE STATUS Review of Systems Review of Systems Constitutional: Negative. Negative for activity change and fever. HENT: Negative. Negative for congestion, facial swelling and trouble swallowing. Eyes: Negative for visual disturbance. Respiratory: Negative. Negative for cough, shortness of breath and wheezing. Cardiovascular: Negative. Negative for chest pain. Gastrointestinal: Positive for nausea and vomiting. Negative for abdominal pain and diarrhea. Endocrine: Negative. Negative for polyuria. Genitourinary: Negative. Negative for difficulty urinating and frequency. Musculoskeletal: Negative. Negative for back pain and neck pain. Skin: Negative. Negative for color change, rash and wound. Neurological: Negative. Negative for dizziness, speech difficulty and headaches. Hematological: Negative. Psychiatric/Behavioral: Positive for confusion. Negative for agitation, hallucinations and suicidal ideas. Altered mental status All other systems reviewed and are negative. Past Medical History: History reviewed. No pertinent past medical history. Past Surgical History: No past surgical history on file. OB/Menstrual History: Not applicable or deferred. Family History: No family history on file. Social History: Social History Tobacco Use Smoking status: Not on file Smokeless tobacco: Not on file Substance Use Topics Alcohol use: Not on file Allergies: Allergies Allergen Reactions Latex Rash Codeine Other (See Comments), Unknown and GI Intolerance Reaction Unknown: Please investigate and enter into [facility]. Other reaction(s): Vomiting Reaction Unknown: Please investigate and enter into [facility]. Reaction Unknown: Please investigate and enter into [facility]. Other reaction(s): Vomiting Reaction Unknown: Please investigate and enter into [facility]. Home Medications: Prior to Admission medications Medication Sig Start Date End Date Taking? Authorizing Provider escitalopram oxalate (LEXAPRO) 5 MG tablet 01/31/24 Yes Mick Blanchard MD buprenorphine-nalOXone (SUBOXONE) 8-[address] 1 (one) each (1 Film total) under the tongue daily . Mick Blanchard MD busPIRone (BUSPAR) 10 MG tablet Take 1 (one) tablet (10 mg total) by mouth every night at bedtime . ProviderMick MD levETIRAcetam (KEPPRA) 500 MG tablet Take 1 (one) tablet (500 mg total) by mouth 2 (two) times a day . Mick Blanchard MD Current Medications: cefTRIAXone (ROCEPHIN) IVPB 1,000 mg Intravenous Q24H Physical Exam: Vitals: 03/24/24 1745 03/24/24 1800 03/24/24 1830 03/24/24 1900 BP: (!) 168/91 (!) 173/88 (!) 177/96 (!) 153/98 BP Location: Patient P (more content not included)... Normal [facility] HCG, SERUM, QUALITATIVEon BETA-HCG QUAL BLOOD Negative Normal Negative [facility] HEMOGLOBIN A1Con 03-24-2024 Glucose [Mass/Vol] 117 mg/dL High 74-114 [facility] Comment on above: Order Comment: Vidya l: 4.2% - 5.6% Increased risk for diabetes: 5.7% - 6.4% Diabetes: >= 6.5% Pediatrics: No established reference range Estimated average glucose: 74-114 mg/dL Performed By: #### [id number] #### [facility] [address] [place] [id number] Sai Lara M.D. [id number] HbA1c (Bld) [Mass fraction] 5.7 % High 4.2-5.6 [facility] Comment on above: Order Comment: Vidya l: 4.2% - 5.6% Increased risk for diabetes: 5.7% - 6.4% Diabetes: >= 6.5% Pediatrics: No established reference range Estimated average glucose: 74-114 mg/dL Performed By: #### [id number] #### [facility] [address] [place] [id number] Sai Lara M.D. [id number] LACTIC ACID, PLASMAon 2023 LACTIC ACID, PLASMA 1.9 mmol/L Normal 0.5-2.2 [facility] LIPASEon 03-24-2024 Lipase [Catalytic activity/Vol] 29 U/L Normal 22-51 [facility] Lactate [Moles/Vol]on 2023 Interpretation and review of laboratory results Normal [facility] Lactic Acidon 03-24-2024 Lactate [Moles/Vol] 1.9 mmol/L 0.5 - 2. 2 mmol/L [facility] Lipaseon 03-24-2024 Lipase [Catalytic activity/Vol] 29 U/L 22 - 51 U/L [facility] Lipase [Catalytic activity/V ol]on 03-24-2024 Interpretation and review of laboratory results Normal [facility] Natriuretic peptide B [Mass/ Vol]Ordered By: Geraldine Jenkins on 03-24-2024 Interpretation and review of laboratory results Abnormal [facility] Natriuretic peptide B (Bld) [Mass/Vol] 123 pg/mL High 15 - 100 pg/mL [facility] No Panel Informationon 03-24 Extra Tube Hold for add-ons. [facility] Comment on above: Auto resulted. [facility] POC GLUCOSE - RALSon 024 Glucose [Mass/Vol] 133 mg/dL High 65-99 [facility] T4, FREEon 03-24-2024 Free T4 [Mass/Vol] 1.3 ng/dL Normal 0.7-1.7 [facility] Comment on above: Performed By: #### [id number] ####[facility] [address] [place] [address] Sai Lara M.D. [id number] TROPONINon 03-24-2024 BASELINE TROPONIN I NG/L 4 ng/L Normal <=59 [facility] TROPONIN I INTERPRETATION Normal Normal [facility] TSH DL <= 0.005 mIU/L Qnon 1 05-25-2023 Interpretation and review of laboratory results Abnormal [facility] TSH Qn 0.12 m[IU]/L Low [facility] TSH WITH REFLEX FREE T4on TSH Qn 0.12 m[IU]/L Low 0.27-4.20 [facility] Troponinon 03-24-2024 Troponin I 4 ng/L NINF - 59 ng/L [facility] Troponin I Interpretation Normal [facility] URINALYSISon 03-24-2024 BACTERIA, URINE Many Abnormal None Seen [facility] Comment on above: Order Comment: [facility] has implemented the eGFR calculation approach that does not have a coefficient for race that conforms to the NKF-ASN Task Force Recommendations. BILIRUBIN, URINE Negative Normal Negative [facility] Comment on above: Order Comment: [facility] has implemented the eGFR calculation approach that does not have a coefficient for race that conforms to the NKF-ASN Task Force Recommendations. BLOOD, URINE Small Abnormal Negative [facility] Comment on above: Order Comment: [facility] has implemented the eGFR calculation approach that does not have a coefficient for race that conforms to the NKF-ASN Task Force Recommendations. Clarity (U) Cloudy Abnormal Clear [facility] Comment on above: Order Comment: [facility] has implemented the eGFR calculation approach that does not have a coefficient for race that conforms to the NKF-ASN Task Force Recommendations. Color (U) Yellow Normal Colorless, Yellow [facility] Comment on above: Order Comment: [facility] has implemented the eGFR calculation approach that does not have a coefficient for race that conforms to the NKF-ASN Task Force Recommendations. Glucose Ql (U) Negative Normal Negative, >=1000 [facility] Comment on above: Order Comment: [facility] has implemented the eGFR calculation approach that does not have a coefficient for race that conforms to the NKF-ASN Task Force Recommendations. Ketones Ql (U) >=80 Abnormal Negative [facility] Comment on above: Order Comment: [facility] has implemented the eGFR calculation approach that does not have a coefficient for race that conforms to the NKF-ASN Task Force Recommendations. Leukocyte esterase Test strip Ql (U) Negative Normal Negative [facility] Comment on above: Order Comment: [facility] has implemented the eGFR calculation approach that does not have a coefficient for race that conforms to the NKF-ASN Task Force Recommendations. MUCUS, URINE Many Abnormal None Seen, Rare [facility] Comment on above: Order Comment: [facility] has implemented the eGFR calculation approach that does not have a coefficient for race that conforms to the NKF-ASN Task Force Recommendations. NITRITE, URINE Negative Normal Negative [facility] Comment on above: Order Comment: [facility] has implemented the eGFR calculation approach that does not have a coefficient for race that conforms to the NKF-ASN Task Force Recommendations. pH (U) 8.0 [pH] High 5.0-7.0 [facility] Comment on above: Order Comment: [facility] has implemented the eGFR calculation approach that does not have a coefficient for race that conforms to the NKF-ASN Task Force Recommendations. PROTEIN, URINE Negative Normal Negative [facility] Comment on above: Order Comment: [facility] has implemented the eGFR calculation approach that does not have a coefficient for race that conforms to the NKF-ASN Task Force Recommendations. Specific gravity (U) [Rel density] 1.020 Normal 1.005-1.025 [facility] Comment on above: Order Comment: [facility] has implemented the eGFR calculation approach that does not have a coefficient for race that conforms to the NKF-ASN Task Force Recommendations. SQUAMOUS EPITHELIAL 3 /hpf Normal 0-4 [facility] Comment on above: Order Comment: [facility] has implemented the eGFR calculation approach that does not have a coefficient for race that conforms to the NKF-ASN Task Force Recommendations. UROBILINOGEN, URINE <2.0 Normal <2.0 [facility] Comment on above: Order Comment: [facility] has implemented the eGFR calculation approach that does not have a coefficient for race that conforms to the NKF-ASN Task Force Recommendations. WBC LM.HPF (Urine sed) [#/Area] 23 /[HPF] High 0-5 [facility] Comment on above: Order Comment: [facility] has implemented the eGFR calculation approach that does not have a coefficient for race that conforms to the NKF-ASN Task Force Recommendations. URINE AEROBIC CULTUREon 12-0 URINE AEROBIC CULTURE URINE CULTURE ESCHERICHIA COLI 10,000-49,000 CFU/mL Escherichia coli < 10,000 CFU/mL of normal urogenital microbiota Organism: ESCHERICHIA COLI Antibiotic Interpretation MIGUEL ANGEL Status Amikacin Susc Islt S <=2 F Ampicillin+Sulbac Susc Islt S <=2 F Ampicillin Susc Islt S 4 F Aztreonam Susc Islt S <=1 F Cefazolin Susc Islt S <=4 F Breakpoints for cefazolin interpretations are based on treatment of uncomplicated UTI. If cefazolin is considered for other infections please contact the Microbiology laboratory for further testing. Cefepime Susc Islt S <=1 F Ciprofloxacin Susc Islt S <=0.25 F AVOID fluoroquinolone treatment whenever possible. Risk of serious side effects may outweigh benefit. Gentamicin Susc Islt S <=1 F Nitrofurantoin Susc Islt S 32 F Pip+Tazo Susc Islt S <=4 F Tobramycin Susc Islt S <=1 F TMP SMX Susc Islt S <=20 F B-Lactamase Extended Susc Islt S Negative F Abnormal [facility] Comment on above: Performed By: #### 4 3022 #### [facility] [address] [place], [place] [id number] Sai Lara M.D. [id number] Urinalysison 03-24-2024 Bacteria Auto Ql (U) Many Abnormal None Se en /hpf [facility] Bilirubin Ql (U) Negative Negative [place] [facility] Clarity Refractometry automated (U) Cloudy Abnormal Clear [facility] Color (U) Yellow Colorless, Yellow [facility] Epithelial cells.squamous Auto (Urine sed) [#/Area] 3 [facility] Glucose Auto test strip (U) [Mass/Vol] Negative Negative, >=1000 mg/dL [facility] Hemoglobin Auto test strip Ql (U) Small Abnormal Negative [facility] Interpretation and review of laboratory results Abnormal [facility] Ketones (U) [Mass/Vol] mg/dL Abnormal Negative mg/dL [facility] Leukocyte esterase Auto test strip Ql (U) Negative Negative [facility] Mucus Auto (Urine sed) [#/Area] Many Abnormal None Seen, Rare /lpf [facility] Nitrite Auto test strip Ql (U) Negative Negative [facility] pH (U) 8 [pH] High 5.0 - 7.0 [facility] Protein (U) [Mass/Vol] Negative Negative mg/dL [facility] Specific gravity (U) [Rel density] 1.02 1.005 - 1.025 [facility] Urobilinogen (U) [Mass/Vol] mg/dL NINF - 2.0 mg/dL [facility] WBC Auto (Urine sed) [#/Area] 23 High [facility] Microscopic examinat ion is performed on all urinalysis samples and only positive findings are reported. The test for blood on the chemical analytic portion of urinalysis may also be positive due to hemoglobinuria and myoglobinuria and if red blood cells are present they are quantified by microscopic examination. [facility] Urine Drug ScreenOrdered By: Laury Nixon on 03-24-2024 Amphetamines Ql (U) Negative Negative [facility] Comment on above: Urine Amphetamines C utoff: <500 ng/mL = None Detected. Barbiturates Screen Ql (U) Negative Negative [facility] Comment on above: Urine Barbiturates C utoff: <200 ng/mL = None Detected. Benzodiazepines Ql (U) Negative Negative [facility] Comment on above: Urine Benzodiazepine s Cutoff: <200 ng/mL = None Detected. Cannabinoids Screen Ql (U) Negative Negative [facility] Comment on above: Urine Cannabinoids c utoff: <50 ng/mL = None Detected. Cocaine Ql (U) Negative Negative [facility] Comment on above: Urine Cocaine Cutoff : 150 ng/mL = None Detected. Interpretation and review of laboratory results Normal [facility] Methadone Screen Ql (U) Negative Negative [facility] Comment on above: Urine Methadone Cuto ff: <100 ng/mL = None Deteced. Methamphetamine (U) [Mass/Vol] Negative Negative [facility] Comment on above: Urine Methamphetamin es Cutoff: <500 ng/mL = None Detected. Opiates Screen Ql (U) Negative Negative [facility] Comment on above: Urine Opiates Cutoff : 300 ng/mL = None Detected. Tricyclic antidepressants [Mass/Vol] Negative Negative [facility] Comment on above: Urine Tricyclic Anti depressants Cutoff: <1000 ng/mL = None Detected. Screen results shoul d be used for treatment purposes only. [facility] XR CHEST PA/APon 03-24-2024 XR CHEST PA/AP EXAMINATION: Exam: XR CHEST PA/AP Exam Date: 03/24/2024 HISTORY: Lethargy COMPARISON: Chest x-ray and 12/14/2007 FINDINGS: Lung: The lung segments appear normal. No pulmonary infiltrations or masses are present. Heart: The heart is normal in size and configuration. Mediastinum: The mediastinum appears normal. Pulmonary Vessels: The pulmonary vessels appear normal. The pulmonary vessels do not appear distended. Bone: There are no osseous abnormalities. IMPRESSION: Radiographically, there is no cardiopulmonary disease. If you have questions or concerns regarding your Radiology (Medical Imaging) report, please reach out to your family provider or the ordering physician. Workstation ID: [id number] Dictated by: BRIGHT TAPIA on FriMar 24, 2024 4:03:22 PM EST Transcribed by: BRIGHT TAPIA on FriMar 24, 2024 4:03:22 PM EST Finalized by: BRIGHT TAPIA on FriMar 24, 2024 4:03:22 PM EST Normal [facility] Comment on above: Order Comment: Injur y/Trauma or Illness?:Illness/OtherHow long have you had these symptoms (acute/chronic)?:AcuteReason for exam?:lethargicHistory of cancer?:unknownSurgeries, chemotherapy, or radiation?:unknownType of Exam?:InitialAdditional signs and symptoms?:lethargic XR Chest PA and Abdomen APon 03-24-2024 Radiographically, there is no cardiopulmonary disease. If you have questions or concerns regarding your Radiology (Medical Imaging) report, please reach out to your family provider or the ordering physician. Workstation ID: [id number] [employer] EXAMINATION: Exam: XR CHEST PA/AP Exam Date: 03/24/2024 HISTORY: Lethargy COMPARISON: Chest x-ray and 12/14/2007 FINDINGS: Lung: The lung segments appear normal. No pulmonary infiltrations or masses are present. Heart: The heart is normal in size and configuration. Mediastinum: The mediastinum appears normal. Pulmonary Vessels: The pulmonary vessels appear normal. The pulmonary vessels do not appear distended. Bone: There are no osseous abnormalities. [facility] Bright Tapia MD - 03/24/2024 EXAMINATION: Exam: XR CHEST PA/AP Exam Date: 03/24/2024 HISTORY: Lethargy COMPARISON: Chest x-ray and 12/14/2007 FINDINGS: Lung: The lung segments appear normal. No pulmonary infiltrations or masses are present. Heart: The heart is normal in size and configuration. Mediastinum: The mediastinum appears normal. Pulmonary Vessels: The pulmonary vessels appear normal. The pulmonary vessels do not appear distended. Bone: There are no osseous abnormalities. IMPRESSION: Radiographically, there is no cardiopulmonary disease. If you have questions or concerns regarding your Radiology (Medical Imaging) report, please reach out to your family provider or the ordering physician. Workstation ID: [id number] [facility] Radiology Study observation (narrative) [facility] XR Chest PA and Abdomen APOr dered By: Bright Tapia on 03-24-2024 [facility] Work Phone: Emergency Department Summary on 12-28-2023 Emergency Department Summary [facility] Medical Records Department [address] [place] [address] Emergency Department Summary 12/28/23 MR#: [id number] Acct: [id number] Name: LISA CHAUDHRY Rep #: [id number] : 1980 43 From: Mich Breaux MD PCP: Dr. Noni Pablo MD Status:DEP ER Location: ED HPI History of Present Illness Chief Complaint: Wound Narrative Narrative: 43-year-old female past medical history of heroin addiction undergoing Suboxone treatment, presents with redness and swelling to her right thigh on the lateral aspect. She states she has had this intermittently over the last few months. She went to her primary care provider and they put her on a round of antibiotics which cleared it up. It returned a month later, so she received a second dose of antibiotics. She states that it resolved after that, and she last took antibiotics approximately 1 month ago. Over the last week, she has had continued use of heroin and injecting into her legs. She states she has not injected into the site for quite some time but is unsure. She presents with reported subjective fever, and redness to the lateral hospital SPECT of her right thigh. [facility] Medical History Anxiety Substance abuse Depression Home Medications ???Medication ???Instructions ???Recorded ???Last Taken ???Type albuterol sulfate 90 mcg/actuation 1 puff inhalation Q6H PRN PRN 02/27/13 Unknown History aerosol inhaler (Ventolin HFA) Wheezing fluticasone 250 mcg-salmeterol 50 1 puff inhalation BID 02/27/13 07/21/13 08:00 History mcg/dose blistr powdr for inhalation (Advair Diskus) sumatriptan succinate 50 mg tablet 50 mg PO .X1 PRN 07/23/13 Unknown History ondansetron 4 mg disintegrating 4 mg PO Q6H PRN PRN Nausea #10 tabs 03/27/14 Unknown Rx tablet Ibuprofen [Motrin] 800 mg PO TID PRN PRN Pain #15 tabs 04/27/14 Unknown Rx camphor-methyl salicylate-menthol 1 ea TP BID PRN Pain ##10 04/27/14 Unknown Rx topical patch (Salonpas topical patch) amoxicillin 875 mg-potassium 1 tab PO BID #20 tabs 12/28/23 Unknown Rx clavulanate 125 mg tablet Allergy/AdvReac Type Severity Reaction Status Date / Time hydromorphone HCl (From AdvReac Itching Verified 04/27/14 09:46 Dilaudid) Family History no significant family his Social History Smoking Status: Current every day smoker tobacco type: cigarettes ROS ROS ED ROS Narrative Constitutional: Reported fever, no chills. HEENT: No sore throat. No neck pain. No loss of vision. No rhinorrhea. Cardiovascular: No chest pain. No palpitations. No pedal edema. Respiratory: No cough, no shortness of breath. Abdominal: No abdominal pain. Positive nausea and vomiting when withdrawing from heroin. Genitourinary: No dysuria. No hematuria. Musculoskeletal: No myalgias. No arthralgias. Neurologic: No headaches. No dizziness. No lightheadedness. Skin: No rash. Positive redness lateral right thigh. Multiple areas on bilateral legs of skin excoriation and itching with some areas red. Psychiatric: No depression. No anxiety. EXAM Physical Exam Narrative Exam Narrative: Afebrile. Vital signs noted. Regular rate and rhythm. Lungs are clear to auscultation bilaterally. Abdomen soft and nontender with normoactive bowel sounds. Inspection of the right thigh does reveal an erythematous area with a central area of excoriation, no fluctuance. She has full range of motion of her joints. There are multiple areas on her bilateral legs that appear excoriated, some with minimal surrounding erythema. Const Vital Signs: 12/28/23 22:07 12/28/23 22:51 Temperature 98.6 F 98.6 F Temperature Source Temporal Pulse Rate 75 77 Respiratory Rate 16 16 Blood Pressure 152/79 H 152/79 H Blood Pressure Mean 103 103 Pulse Ox 97 98 Oxygen Delivery Method Room Air MDM MDM MDM Narrative Medical decision making narrative: Patient is already undergoing outpatient detox from heroin and she states she has a Suboxone. Earlier this morning, she was having nausea and vomiting but was unsure if she should take her Suboxone. She did last inject heroin earlier this afternoon. Regarding her right thigh, I feel this is more of a cellulitis, I do not feel she has a drainable abscess. I have very low suspicion for DVT or superficial thrombophlebitis. She does not have swelling of her inner thigh or her entire legs so I do not think DVT, there is no palpable superficial venous thrombosis. She states that she was placed on Augmentin previously and cephalexin twice a day. She was given her first dose of Augmentin here in the emergency department and prescription written to take twice a day for the next 10 days. She will follow-up with her primary (more content not included)... [facility] 10-29-2023 36 Unable to get a hold of pt after several attempts. Certified letter sent out 10/29/23 [facility] 36 Called pt to schedul e pap. Unable to leave mss d/t voice mailbox not being set up. [facility] 10-28-2023 36 Tried calling jenny t 10/28/23. To schedule a repeat pap. No answer, No voicemail. [facility] 09-25-2023 36 Mychart mssg sent to schedule appt [facility] 09-24-2023 36 Pt due for repeat diony parson. Please call and help schedule [facility] Basic metabolic 1999 panel06-19-2023 Anion gap [Moles/Vol] 8 mmol/L Low 9-18 [facility] Comment on above: Order Comment: Speci men Type: URINE SPECIMEN Ordering Facility: [facility] Address: [address] [place] [address] Performed By: #### 2 106-3 #### [facility] CLIA [id number] [address] Order Comment: Speci men Type: BLOOD SPECIMEN Ordering Facility: [facility] Address: [address] [place] [address] Performed By: #### 4 537-7 #### [facility] CLIA [id number] [address] [place] [address] [place] Calcium [Mass/Vol] 8.8 mg/dL Normal 8.5-10.2 [facility] Comment on above: Order Comment: Speci men Type: URINE SPECIMEN Ordering Facility: [facility] Address: [address] [place] [address] Performed By: #### 2 106-3 #### [facility] CLIA [id number] [address] Order Comment: Speci men Type: BLOOD SPECIMEN Ordering Facility: [facility] Address: [address] [place] [address] Performed By: #### 4 537-7 #### [facility] CLIA [id number] [address] [place] [address] [place] Chloride [Moles/Vol] 106 mmol/L High 97-105 [facility] Comment on above: Order Comment: Speci men Type: URINE SPECIMEN Ordering Facility: [facility] Address: [address] [place] [address] Performed By: #### 2 106-3 #### [facility] CLIA [id number] [address] Order Comment: Speci men Type: BLOOD SPECIMEN Ordering Facility: [facility] Address: [address] [place] [address] Performed By: #### 4 537-7 #### [facility] CLIA [id number] [address] [place] [address] [place] CO2 [Moles/Vol] 24 mmol/L Normal 22-30 [facility] Comment on above: Order Comment: Speci men Type: URINE SPECIMEN Ordering Facility: [facility] Address: [address] [place] [address] Performed By: #### 2 106-3 #### [facility] CLIA [id number] [address] Order Comment: Speci men Type: BLOOD SPECIMEN Ordering Facility: [facility] Address: [address] [place] [address] Performed By: #### 4 537-7 #### [facility] CLIA [id number] [address] [place] [address] [place] Creatinine [Mass/Vol] 0.54 mg/dL Low 0.58-0.96 [facility] Comment on above: Order Comment: Speci men Type: URINE SPECIMEN Ordering Facility: [facility] Address: [address] [place] [address] Performed By: #### 2 106-3 #### [facility] CLIA [id number] [address] Order Comment: Macey men Type: BLOOD SPECIMEN Ordering Facility: [facility] Address: [address] [place] [address] Performed By: #### 4 537-7 #### [facility] CLIA [id number] [address] [place] [address] Creatinine and Glomerular filtration rate.predicted panel (S/P/Bld) 117 mL/min/1.73m??? Normal >=60 [facility] Comment on above: Order Comment: Sravanii men Type: URINE SPECIMEN Ordering Facility: [facility] Address: [address] [place] [address] Result Comment: Rosario mated Glomerular Filtration Rate (eGFR) is calculated using the 2020 CKD-EPI creatinine equation. This equation utilizes serum creatinine, sex, and age as parameters. The creatinine assay has traceable calibration to isotope dilution-mass spectrometry. Refer to KDIGO guidelines for clinical interpretation. In patients with unstable renal function, e.g. those with acute kidney injury, the eGFR may not accurately reflect actual GFR. Performed By: #### 2 106-3 #### [facility] CLIA [id number] [address] Order Comment: Macey marin Type: BLOOD SPECIMEN Ordering Facility: [facility] Address: [address] [place] [address] Performed By: #### 4 537-7 #### [facility] CLIA [id number] [address] [place] [address] [place] Glucose [Mass/Vol] 96 mg/dL Normal 74-99 [facility] Comment on above: Order Comment: Macey men Type: URINE SPECIMEN Ordering Facility: [facility] Address: [address] [place] [address] Result Comment: The [place] Diabetes Association (ADA) provides guidance for cutoff values for fasting glucose and random glucose. The ADA defines fasting as no caloric intake for at least 8 hours. Fasting plasma glucose results between 100 to 125 mg/dL indicate increased risk for diabetes (prediabetes). Fasting plasma glucose results greater than or equal to 126 mg/dL meet the criteria for diagnosis of diabetes. In the absence of unequivocal hyperglycemia, results should be confirmed by repeat testing. In a patient with classic symptoms of hyperglycemia or hyperglycemic crisis, random plasma glucose results greater than or equal to 200 mg/dL meet the criteria for diagnosis of diabetes. Reference: Standards of Medical Care in Diabetes 2016, [place] [employer] Association. Diabetes Care. 2016.39(Suppl 1). Performed By: #### 2 106-3 #### [facility] CLIA [id number] [address] Order Comment: Speci men Type: BLOOD SPECIMEN Ordering Facility: [facility] Address: [address] [place] [address] Performed By: #### 4 537-7 #### [facility] CLIA [id number] [address] [place] [address] [place] Potassium [Moles/Vol] 4.0 mmol/L Normal 3.7-5.1 [facility] Comment on above: Order Comment: Speci men Type: URINE SPECIMEN Ordering Facility: [facility] Address: [address] [place] [address] Performed By: #### 2 106-3 #### [facility] CLIA [id number] [address] Order Comment: Speci men Type: BLOOD SPECIMEN Ordering Facility: [facility] Address: [address] [place] [address] Performed By: #### 4 537-7 #### [facility] CLIA [id number] [address] [place] [address] [place] Sodium [Moles/Vol] 138 mmol/L Normal 136-144 [facility] Comment on above: Order Comment: Speci men Type: URINE SPECIMEN Ordering Facility: [facility] Address: [address] [place] [address] Performed By: #### 2 106-3 #### [facility] CLIA [id number] [address] Order Comment: Speci men Type: BLOOD SPECIMEN Ordering Facility: [facility] Address: [address] [place] [address] Performed By: #### 4 537-7 #### [facility] CLIA [id number] [address] [place] [address] [place] Urea nitrogen [Mass/Vol] 6 mg/dL Low 7- [facility] Comment on above: Order Comment: Speci men Type: URINE SPECIMEN Ordering Facility: [facility] Address: [address] [place] [address] Performed By: #### 2 106-3 #### [facility] CLIA [id number] [address] Order Comment: Speci men Type: BLOOD SPECIMEN Ordering Facility: [facility] Address: [address] [place] [address] Performed By: #### 4 537-7 #### [facility] CLIA [id number] [address] [place] [address] [place] CBC panel Auto (Bld)on Erythrocyte distribution width (RBC) [Ratio] 13.0 % Normal 11.5-15.0 [facility] Comment on above: Order Comment: Speci men Type: URINE SPECIMEN Ordering Facility: [facility] Address: [address] [place] [address] Performed By: #### 2 106-3 #### [facility] CLIA [id number] [address] Order Comment: Speci men Type: BLOOD SPECIMEN Ordering Facility: [facility] Address: [address] [place] [address] Performed By: #### 4 537-7 #### [facility] CLIA [id number] [address] [place] [address] [place] Hematocrit (Bld) [Volume fraction] 38.6 % Normal 36.0-46.0 [facility] Comment on above: Order Comment: Speci men Type: URINE SPECIMEN Ordering Facility: [facility] Address: [address] [place] [address] Performed By: #### 2 106-3 #### [facility] CLIA [id number] [address] Order Comment: Speci men Type: BLOOD SPECIMEN Ordering Facility: [facility] Address: [address] [place] [address] Performed By: #### 4 537-7 #### [facility] CLIA [id number] [address] [place] [address] [place] Hemoglobin (Bld) [Mass/Vol] 13.2 g/dL Normal 11.5-15.5 [facility] Comment on above: Order Comment: Speci men Type: URINE SPECIMEN Ordering Facility: [facility] Address: [address] [place] [address] Performed By: #### 2 106-3 #### [facility] CLIA [id number] [address] Order Comment: Speci men Type: BLOOD SPECIMEN Ordering Facility: [facility] Address: [address] [place] [address] Performed By: #### 4 537-7 #### [facility] CLIA [id number] [address] [place] [address] [place] MCH (RBC) [Entitic mass] 32.5 pg Normal 26.0-34.0 [facility] Comment on above: Order Comment: Speci men Type: URINE SPECIMEN Ordering Facility: [facility] Address: [address] [place] [address] Performed By: #### 2 106-3 #### [facility] CLIA [id number] [address] Order Comment: Speci men Type: BLOOD SPECIMEN Ordering Facility: [facility] Address: [address] [place] [address] Performed By: #### 4 537-7 #### [facility] CLIA [id number] [address] [place] [address] [place] MCHC (RBC) [Mass/Vol] 34.2 g/dL Normal 30.5-36.0 [facility] Comment on above: Order Comment: Speci men Type: URINE SPECIMEN Ordering Facility: [facility] Address: [address] [place] [address] Performed By: #### 2 106-3 #### [facility] CLIA [id number] [address] Order Comment: Speci men Type: BLOOD SPECIMEN Ordering Facility: [facility] Address: [address] [place] [address] Performed By: #### 4 537-7 #### [facility] CLIA [id number] [address] [place] [address] [place] MCV (RBC) [Entitic vol] 95.1 fL Normal 80.0-100.0 [facility] Comment on above: Order Comment: Speci men Type: URINE SPECIMEN Ordering Facility: [facility] Address: [address] [place] [address] Performed By: #### 2 106-3 #### [facility] CLIA [id number] [address] Order Comment: Speci men Type: BLOOD SPECIMEN Ordering Facility: [facility] Address: [address] [place] [address] Performed By: #### 4 537-7 #### [facility] CLIA [id number] [address] [place] [address] [place] Nucleated RBC (Bld) [#/Vol] 10*3/uL Normal <0.01 [facility] Comment on above: Order Comment: Speci men Type: URINE SPECIMEN Ordering Facility: [facility] Address: [address] [place] [address] Performed By: #### 2 106-3 #### [facility] CLIA [id number] [address] Order Comment: Speci men Type: BLOOD SPECIMEN Ordering Facility: [facility] Address: [address] [place], [place] [address] Performed By: #### 4 537-7 #### [facility] CLIA [id number] [address] [place] [address] [place] Platelet mean volume (Bld) [Entitic vol] 11.3 fL Normal 9.0-12.7 [facility] Comment on above: Order Comment: Speci men Type: URINE SPECIMEN Ordering Facility: [facility] Address: [address] [place] [address] Performed By: #### 2 106-3 #### [facility] CLIA [id number] [address] Order Comment: Speci men Type: BLOOD SPECIMEN Ordering Facility: [facility] Address: [address] [place] [address] Performed By: #### 4 537-7 #### [facility] CLIA [id number] [address] [place] [address] [place] Platelets (Bld) [#/Vol] 196 10*3/uL Normal 150-400 [facility] Comment on above: Order Comment: Speci men Type: URINE SPECIMEN Ordering Facility: [facility] Address: [address] [place] [address] Performed By: #### 2 106-3 #### [facility] CLIA [id number] [address] Order Comment: Speci men Type: BLOOD SPECIMEN Ordering Facility: [facility] Address: [address] [place] [address] Performed By: #### 4 537-7 #### [facility] CLIA [id number] [address] [place] [address] [place] RBC (Bld) [#/Vol] 4.06 10*6/uL Normal 3.90-5.20 [facility] Comment on above: Order Comment: Speci men Type: URINE SPECIMEN Ordering Facility: [facility] Address: [address] [place] [address] Performed By: #### 2 106-3 #### [facility] CLIA [id number] [address] Order Comment: Speci men Type: BLOOD SPECIMEN Ordering Facility: [facility] Address: [address] [place] [address] Performed By: #### 4 537-7 #### [facility] CLIA [id number] [address] [place] [address] [place] WBC (Bld) [#/Vol] 10.00 10*3/uL Normal 3.70-11.00 [facility] Comment on above: Order Comment: Speci men Type: URINE SPECIMEN Ordering Facility: [facility] Address: [address] [place] [address] Performed By: #### 2 106-3 #### [facility] CLIA [id number] [address] Order Comment: Speci men Type: BLOOD SPECIMEN Ordering Facility: [facility] Address: [address] [place] [address] Performed By: #### 4 537-7 #### [facility] CLIA [id number] [address] [place] [address] [place] CNDSon 06-19-2023 CNDS HNO ID: [id number] Author: AMAYA VÁZQUEZ PA-C Service: Hospital Medicine Author Type: Physician Mill Operator Type: Discharge Summary Filed: 06/19/2023 10:21 Note Text: Attestation signed by Mitchell Hannon MD at 06/19/2023 2:04 PM Discussed with provider below and I agree with their discharge documentation. Mitchell Hannon MD DISCHARGE SUMMARY PATIENT NAME: Lisa Chaudhry Code Status: Not on file Highest Readmission Risk Score: 9 The 30 day readmissions risk score is derived from an internally validated risk model which evaluates patient level characteristics, utilization history, medication orders and lab results up until the day of discharge. Patients with a score of 40 or above are considered highest risk for readmission. Specific patient level drivers will be listed at the bottom of the summary. Admission Information Admission Information ADMIT DATE: 06/16/2023 DISCHARGE DATE: 06/19/2023 MY DOCTORS AND MEDICAL TEAM: My Main Hospital Doctor: Mitchell Hannon MD Primary Care Provider: Konrad Hampton DO My Medical Team Members: Treatment Team: Attending Provider: Mitchell Hannon MD Primary Service: [facility] Physician Mill Operator: Amaya Vázquez PA-C MY CONDITION AT DISCHARGE: Stable REASON I WAS IN THE HOSPITAL: overdose SUMMARY OF WHAT HAPPENED WHILE I WAS IN THE HOSPITAL: Patient was admitted for overdose. 43 year old female with hx of drug/Heroin abuse presents with drug overdose. Pt was reportedly found naked in basement, breathing agonally, with white substance around her. She reportedly responded to narcan. Utox positive for cocaine only. She denies knowledge of any possible illicit substance and denies suicidal ideology or attempt. Psychiatry followed. Pt had elevated trop, BNP, and, WBC, CRP, and D-dimer. EKG NSR no STEMI. Trop downtrended. Pt had fevers. She was on empiric CTX. UCx neg and BCx ng2d. ECHO completed and no significant findings. Fevers resolved and ABx stopped. Encouraged pt to avoid illicit substances. CM offered resources but pt declined. Drug overdose Minimally responsive and agonal breathing improved with narcan H/o heroin use Clinical depression Could be mixed with opiods. Improved with intranasal narcan. -Currently back to baseline mentation. Denies use of illicit drug - states previously injected heroin but claims has not used in about a year -recommend avoiding illicit substances -Psychiatry consult: signed off -HS trop, D-dimer, BNP, CRP, WBC all elevated -HS trop downtrending, EKG NSR no STEMI -psych evaluated and signed off Dysuria Fever -Leucocytosis 22k>16k -fever could be 2/2 drug use -was empirically started on CTX for UTI (she is having dysuria but UA is bland) -ceftriaxone for now -ECHO completed this morning -low grade temp this morning -BCx ng1d, await UCx -anticipate d/c tomorrow Gap metabolic acidosis Hypovolemia Clinical dehydration Less concerning for methyl/ethylene glycol overdose. Maintenance IVF Left sided non radiating chest pain Trop 69>81>61 Less concerning for pleuritic or pericardial condition But CXR does show bilateral nonspecific prominence of pulmonary vasculature. Monitor on telemetry -HS trop, D-dimer, BNP, CRP, WBC all elevated -HS trop downtrending, EKG NSR no STEMI -ECHO Fall CT head/face/ cervical spine is clear without fracture Fall precautions Difficult IV access Has 18G IV line OTHER PROBLEMS/DIAGNOSIS: Principal Problem: Drug overdose of undetermined intent, initial encounter Active Problems: Opioid use disorder Resolved Problems: Infective urethritis Unstable angina pectoris (HCC) Acidosis Fever Chest pain OPERATIONS PERFORMED WHILE IN THE HOSPITAL: None IMPORTANT TEST/PROCEDURES: EKG CT Scan TEST RESULTS NOT AVAILABLE AT THIS TIME: No pending results Discharge Disposition Home/Self Care Activity When You Leave the Hospital Activity Resume pre-hospital activity Diet Instructions Diet Resume pre-hospital diet Additional Provider to Provider Information: 43 year old female with hx of drug/Heroin abuse presents with drug overdose. Pt was reportedly found naked in basement, breathing agonally, with white substance around her. She reportedly responded to narcan. Utox positive for cocaine only. She denies knowledge of any possible illicit substance and denies suicidal ideology or attempt. Psychiatry followed. Pt had elevated trop, BNP, and, WBC, CRP, and D-dimer. EKG NSR no STEMI. Trop downtrended. Pt had fevers. She was on empiric CTX. UCx neg and BCx ng2d. ECHO completed and no significant findings. Fevers resolved and ABx stopped. Encouraged pt to avoid illicit substances. CM offered resources but pt declined. Ac (more content not included)... Normal [facility] Basic metabolic 2000 panelon 06-18-2023 Anion gap [Moles/Vol] 10 mmol/L Normal 9-18 [facility] Comment on above: Order Comment: Speci men Type: URINE SPECIMEN Ordering Facility: [facility] Address: [address] [place] [address] Performed By: #### 2 106-3 #### [facility] CLIA [id number] [address] Order Comment: Speci men Type: BLOOD SPECIMEN Ordering Facility: [facility] Address: [address] [place] [address] Performed By: #### 4 537-7 #### [facility] CLIA [id number] [address] [place] [address] [place] Calcium [Mass/Vol] 8.5 mg/dL Normal 8.5-10.2 [facility] Comment on above: Order Comment: Speci men Type: URINE SPECIMEN Ordering Facility: [facility] Address: [address] [place] [address] Performed By: #### 2 106-3 #### [facility] CLIA [id number] [address] Order Comment: Speci men Type: BLOOD SPECIMEN Ordering Facility: [facility] Address: [address] [place] [address] Performed By: #### 4 537-7 #### [facility] CLIA [id number] [address] [place] [address] [place] Chloride [Moles/Vol] 103 mmol/L Normal 97-105 [facility] Comment on above: Order Comment: Speci men Type: URINE SPECIMEN Ordering Facility: [facility] Address: [address] [place] [address] Performed By: #### 2 106-3 #### [facility] CLIA [id number] [address] Order Comment: Speci men Type: BLOOD SPECIMEN Ordering Facility: [facility] Address: [address] [place] [address] Performed By: #### 4 537-7 #### [facility] CLIA [id number] [address] [place] [address] [place] CO2 [Moles/Vol] 20 mmol/L Low 22-30 [facility] Comment on above: Order Comment: Speci men Type: URINE SPECIMEN Ordering Facility: [facility] Address: [address] [place] [address] Performed By: #### 2 106-3 #### [facility] CLIA [id number] [address] Order Comment: Speci men Type: BLOOD SPECIMEN Ordering Facility: [facility] Address: [address] [place] [address] Performed By: #### 4 537-7 #### [facility] CLIA [id number] [address] [place] [address] [place] Creatinine [Mass/Vol] 0.52 mg/dL Low 0.58-0.96 [facility] Comment on above: Order Comment: Speci men Type: URINE SPECIMEN Ordering Facility: [facility] Address: [address] [place] [address] Performed By: #### 2 106-3 #### [facility] CLIA [id number] [address] [place] [address] Order Comment: Speci men Type: BLOOD SPECIMEN Ordering Facility: [facility] Address: [address] [place] [address] Performed By: #### 4 537-7 #### [facility] CLIA [id number] [address] [place] [address] [place] Creatinine and Glomerular filtration rate.predicted panel (S/P/Bld) 118 mL/min/1.73m??? Normal >=60 [facility] Comment on above: Order Comment: Speci men Type: URINE SPECIMEN Ordering Facility: [facility] Address: [address] [place] [address] Result Comment: Rosario mated Glomerular Filtration Rate (eGFR) is calculated using the 2020 CKD-EPI creatinine equation. This equation utilizes serum creatinine, sex, and age as parameters. The creatinine assay has traceable calibration to isotope dilution-mass spectrometry. Refer to KDIGO guidelines for clinical interpretation. In patients with unstable renal function, e.g. those with acute kidney injury, the eGFR may not accurately reflect actual GFR. Performed By: #### 2 106-3 #### [facility] CLIA [id number] [address] [place] [address] [place] Order Comment: Macey marin Type: BLOOD SPECIMEN Ordering Facility: [facility] Address: [address] [place] [address] Performed By: #### 4 537-7 #### [facility] CLIA [id number] [address] [place] [address] [place] Glucose [Mass/Vol] 136 mg/dL High 7499 [facility] Comment on above: Order Comment: Macey marin Type: URINE SPECIMEN Ordering Facility: [facility] Address: [address] [place] [address] Result Comment: The [place] Diabetes Association (ADA) provides guidance for cutoff values for fasting glucose and random glucose. The ADA defines fasting as no caloric intake for at least 8 hours. Fasting plasma glucose results between 100 to 125 mg/dL indicate increased risk for diabetes (prediabetes). Fasting plasma glucose results greater than or equal to 126 mg/dL meet the criteria for diagnosis of diabetes. In the absence of unequivocal hyperglycemia, results should be confirmed by repeat testing. In a patient with classic symptoms of hyperglycemia or hyperglycemic crisis, random plasma glucose results greater than or equal to 200 mg/dL meet the criteria for diagnosis of diabetes. Reference: Standards of Medical Care in Diabetes 2016, [place] Diabetes Association. Diabetes Care. 2016.39(Suppl 1). Performed By: #### 2 106-3 #### [facility] CLIA [id number] [address] [place] Order Comment: Macey marin Type: BLOOD SPECIMEN Ordering Facility: [facility] Address: [address] [place] [address] Performed By: #### 4 537-7 #### [facility] CLIA [id number] [address] [place] [address] [place] Potassium [Moles/Vol] 4.3 mmol/L Normal 3.7-5.1 [facility] Comment on above: Order Comment: Speci men Type: URINE SPECIMEN Ordering Facility: [facility] Address: [address] [place] [address] Performed By: #### 2 106-3 #### [facility] CLIA [id number] [address] Order Comment: Speci men Type: BLOOD SPECIMEN Ordering Facility: [facility] Address: [address] [place] [address] Performed By: #### 4 537-7 #### [facility] CLIA [id number] [address] [place] [address] [place] Sodium [Moles/Vol] 133 mmol/L Low 136-144 [facility] Comment on above: Order Comment: Speci men Type: URINE SPECIMEN Ordering Facility: [facility] Address: [address] [place] [address] Performed By: #### 2 106-3 #### [facility] CLIA [id number] [address] Order Comment: Speci men Type: BLOOD SPECIMEN Ordering Facility: [facility] Address: [address] [place] [address] Performed By: #### 4 537-7 #### [facility] CLIA [id number] [address] [place] [address] [place] Urea nitrogen [Mass/Vol] 5 mg/dL Low 7-21 [facility] Comment on above: Order Comment: Speci men Type: URINE SPECIMEN Ordering Facility: [facility] Address: [address] [place] [address] Performed By: #### 2 106-3 #### [facility] CLIA [id number] [address] Order Comment: Speci men Type: BLOOD SPECIMEN Ordering Facility: [facility] Address: [address] [place] [address] Performed By: #### 4 537-7 #### [facility] CLIA [id number] [address] [place], [place] [address] [place] [address] [place] CASE MANAGEMon 06-18-2023 CASE MANAGEM HNO ID: [id number] Author: JASON BERGMAN LISW Service: ? Author Type: Financial Services Specialist Type: Care Mgt Progress Note Filed: 06/18/2023 10:07 Note Text: CARE MANAGEMENT PROGRESS NOTE SERVICE DATE: 06/18/2023 SERVICE TIME: 10:05 AM LOS: 0 days Needs Prior to Discharge: To Be Determined CMSW met pt at bedside, introduced self/role. Explained reason of visit and inquired with pt if she was interested in community resources for substance use. Pt declined wanting resources. CMSW engaged with pt about previous IOP programs/what brought her into hospital/social supports/emotional supports. Pt continued to politely decline wanting resources saying, I'm good. CMSW advised pt that I would remain available should she change her mind. CMSW rounded with RN to advise. SIGNATURE: Jason Bergman REIKI PRACTITIONER, DYEING MACHINE TENDER PATIENT NAME: Lisa Chaudhry DATE: June 18, 2023 TIME: 10:05 AM PAGER/CONTACT #: [phone] Normal [facility] CBC panel Auto (Bld)on 06-18 Erythrocyte distribution width (RBC) [Ratio] 13.3 % Normal 11.5-15.0 [facility] Comment on above: Order Comment: Speci men Type: URINE SPECIMEN Ordering Facility: [facility] Address: [address] [place] [address] Performed By: #### 2 106-3 #### [facility] CLIA [id number] [address] [place] [address] [place] Order Comment: Speci men Type: BLOOD SPECIMEN Ordering Facility: [facility] Address: [address] [place] [address] Performed By: #### 4 537-7 #### [facility] CLIA [id number] [address] [place], [place] [address] [place] [address] [place] Hematocrit (Bld) [Volume fraction] 40.0 % Normal 36.0-46.0 [facility] Comment on above: Order Comment: Speci men Type: URINE SPECIMEN Ordering Facility: [facility] Address: [address] [place] [address] Performed By: #### 2 106-3 #### [facility] CLIA [id number] [address] Order Comment: Speci men Type: BLOOD SPECIMEN Ordering Facility: [facility] Address: [address] [place] [address] Performed By: #### 4 537-7 #### [facility] CLIA [id number] [address] [place] [address] [place] Hemoglobin (Bld) [Mass/Vol] 12.7 g/dL Normal 11.5-15.5 [facility] Comment on above: Order Comment: Speci men Type: URINE SPECIMEN Ordering Facility: [facility] Address: [address] [place] [address] Performed By: #### 2 106-3 #### [facility] CLIA [id number] [address] Order Comment: Speci men Type: BLOOD SPECIMEN Ordering Facility: [facility] Address: [address] [place] [address] Performed By: #### 4 537-7 #### [facility] CLIA [id number] [address] [place] [address] [place] MCH (RBC) [Entitic mass] 31.6 pg Normal 26.0-34.0 [facility] Comment on above: Order Comment: Speci men Type: URINE SPECIMEN Ordering Facility: [facility] Address: [address] [place] [address] Performed By: #### 2 106-3 #### [facility] CLIA [id number] [address] Order Comment: Speci men Type: BLOOD SPECIMEN Ordering Facility: [facility] Address: [address] [place] [address] Performed By: #### 4 537-7 #### [facility] CLIA [id number] [address] [place] [address] [place] MCHC (RBC) [Mass/Vol] 31.8 g/dL Normal 30.5-36.0 [facility] Comment on above: Order Comment: Speci men Type: URINE SPECIMEN Ordering Facility: [facility] Address: [address] [place] [address] Performed By: #### 2 106-3 #### [facility] CLIA [id number] [address] Order Comment: Speci men Type: BLOOD SPECIMEN Ordering Facility: [facility] Address: [address] [place] [address] Performed By: #### 4 537-7 #### [facility] CLIA [id number] [address] [place] [address] [place] MCV (RBC) [Entitic vol] 99.5 fL Normal 80.0-100.0 [facility] Comment on above: Order Comment: Speci men Type: URINE SPECIMEN Ordering Facility: [facility] Address: [address] [place] [address] Performed By: #### 2 106-3 #### [facility] CLIA [id number] [address] Order Comment: Speci men Type: BLOOD SPECIMEN Ordering Facility: [facility] Address: [address] [place] [address] Performed By: #### 4 537-7 #### [facility] CLIA [id number] [address] [place] [address] [place] Nucleated RBC (Bld) [#/Vol] 10*3/uL Normal <0.01 [facility] Comment on above: Order Comment: Speci men Type: URINE SPECIMEN Ordering Facility: [facility] Address: [address] [place] [address] Performed By: #### 2 106-3 #### [facility] CLIA [id number] [address] [place] Order Comment: Speci men Type: BLOOD SPECIMEN Ordering Facility: [facility] Address: [address] [place] [address] Performed By: #### 4 537-7 #### [facility] CLIA [id number] [address] [place] [address] [place] Platelet mean volume (Bld) [Entitic vol] 11.5 fL Normal 9.0-12.7 [facility] Comment on above: Order Comment: Speci men Type: URINE SPECIMEN Ordering Facility: [facility] Address: [address] [place] [address] Performed By: #### 2 106-3 #### [facility] CLIA [id number] [address] Order Comment: Speci men Type: BLOOD SPECIMEN Ordering Facility: [facility] Address: [address] [place] [address] Performed By: #### 4 537-7 #### [facility] CLIA [id number] [address] [place] [address] [place] Platelets (Bld) [#/Vol] 152 10*3/uL Normal 150-400 [facility] Comment on above: Order Comment: Speci men Type: URINE SPECIMEN Ordering Facility: [facility] Address: [address] [place] [address] Result Comment: No c lot detected. Performed By: #### 2 106-3 #### [facility] CLIA [id number] [address] Order Comment: Speci men Type: BLOOD SPECIMEN Ordering Facility: [facility] Address: [address] [place] [address] Performed By: #### 4 537-7 #### [facility] CLIA [id number] [address] [place] [address] [place] RBC (Bld) [#/Vol] 4.02 10*6/uL Normal 3.90-5.20 [facility] Comment on above: Order Comment: Speci men Type: URINE SPECIMEN Ordering Facility: [facility] Address: [address] [place] [address] Performed By: #### 2 106-3 #### [facility] CLIA [id number] [address] Order Comment: Speci men Type: BLOOD SPECIMEN Ordering Facility: [facility] Address: [address] [place] [address] Performed By: #### 4 537-7 #### [facility] CLIA [id number] [address] [place] [address] [place] WBC (Bld) [#/Vol] 13.73 10*3/uL High 3.70-11.00 [facility] Comment on above: Order Comment: Speci men Type: URINE SPECIMEN Ordering Facility: [facility] Address: [address] [place] [address] Performed By: #### 2 106-3 #### [facility] CLIA [id number] [address] [place] [address] Order Comment: Speci men Type: BLOOD SPECIMEN Ordering Facility: [facility] Address: [address] [place] [address] Performed By: #### 4 537-7 #### [facility] CLIA [id number] [address] [place] [address] [place] ECHOon 06-18-2023 Echocardiography Echocardiography Rep ort: Transthoracic Echo [facility] Date of service: 06/18/2023 8:35:32 AM Ordering physician: KIMBERLEE STAPLES Indication: pericardial disease Technologist: Bettie Martinez [facility] Interpreting physician: Keely Bonner MD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 Comment: Macey marin Type: BLOOD SPECIMENOrdering Facility: [facility] Address: [address] [place] [address] Performed By: #### 3 3762-6, HSTNT, ####[facility]IA [id number] [place] [address] [place] ALLIED HEALTHon 06-16-2023 ALLIED HEALTH HNO ID: [id number] Author: JULY MILLARD RT(R) Service: ? Author Type: Technologist Type: Allied Health Filed: 06/16/2023 09:47 Note Text: Radiology Service Progress Note PATIENT NAME: Lisa Brown DATE OF SERVICE: June 16, 2023 TIME: 9:47 AM PATIENT IDENTITY VERIFICATION COMPLETED USING TWO (2) IDENTIFIERS: Name and Date of confirmed by patient verbally. FALL SCREENING: Has the patient had 2 falls in the last year or 1 fall with injury or currently using an Ambulatory Assistive Device (Walker, Cane, Wheelchair, Crutches, etc.)? Emergency Room Patient: Screened in ED PATIENT GENDER DATA: Female. status: : No status: NO. PATIENT RELEVANT IMPLANT DATA REVIEWED: Not Applicable PATIENT PRESENTS WITH AN IMPLANTABLE OR ATTACHED REAL ESTATE BROKER: No RADIOLOGY DEPARTMENT: General X-ray: Exam(s) Completed: Chest X-Ray PERIPHERAL IV DATA: Not applicable SIGNED BY: July Millard RT(R) June 16, 2023 9:47 AM Normal [facility] B-HCG SerPl-aCncon 4 HCG.beta subunit Qn m[IU]/mL Normal <5.0 [facility] Comment on above: Order Comment: Speci men Type: BLOOD SPECIMENOrdering Facility: [facility] Address: [address] [place] [address] Result Comment: Nega tive Performed By: #### 2 4323-8, 3040-3, 93300-6 ####[facility] LABCLIA [id number] [address] [facility] Bacteria Bld Culton 06-16-19 24 Bacteria identified Cx Nom (Bld) CULTURE, BLOOD: No growth 5 days Normal [facility] Comment on above: Performed By: #### 6 00-7 #### [facility] CLIA [id number] [address] Performed By: #### 6 00-7 ####[facility]ORATORYCLIA [id number] [address] [facility] Bacteria Ur Culton 4 Bacteria identified Cx Nom (U) CULTURE, URINE: <10,000 CFU/ml Normal Urogenital Bisi Normal [facility] Comment on above: Performed By: #### 6 30-4 #### [facility] CLIA [id number] [address] STATES [facility] CBC W Auto Differential pane l (Bld)on 06-16-2023 Anisocytosis Ql (Bld) Present Normal [facility] Comment on above: Order Comment: Speci men Type: BLOOD SPECIMENOrdering Facility: [facility] Address: [address] [place] [address] Performed By: #### 5 8410-2, 98385-5 ####[facility] LABCLIA [id number] [place] [address] [facility] Basophils (Bld) [#/Vol] 0.00 10*3/uL Normal <0.11 [facility] Comment on above: Order Comment: Speci men Type: BLOOD SPECIMENOrdering Facility: [facility] Address: [address] [place] [address] Performed By: #### 5 8410-2, 82751-4 ####[facility] LABCLIA [id number] [place] [address] [facility] Basophils/100 WBC (Bld) 0.0 % Normal [facility] Comment on above: Order Comment: Speci men Type: BLOOD SPECIMENOrdering Facility: [facility] Address: [address] [place] [address] Performed By: #### 5 8410-2, 55317-5 ####[facility] LABCLIA [id number] [place] [address] [facility] Differential cell count method Nom (Bld) Manual Normal [facility] Comment on above: Order Comment: Speci men Type: BLOOD SPECIMENOrdering Facility: [facility] Address: [address] [place] [address] Performed By: #### 5 8410-2, 14433-4 ####[facility] LABCLIA [id number] [place] [address] [place] Eosinophils (Bld) [#/Vol] 0.00 10*3/uL Normal <0.46 [facility] Comment on above: Order Comment: Speci men Type: BLOOD SPECIMENOrdering Facility: [facility] Address: [facility] [place] [address] Performed By: #### 5 8410-2, 43657-8 ####[facility]CLIA [id number] [place] [address] [facility] Eosinophils/100 WBC (Bld) 0.0 % Normal [facility] Comment on above: Order Comment: Speci men Type: BLOOD SPECIMENOrdering Facility: [facility] Address: [address] [place] [address] Performed By: #### 5 8410-2, 93416-7 ####[facility]CLIA [id number] [place] [address] [place] Lymphocytes (Bld) [#/Vol] 1.60 10*3/uL Normal 1.00-4.00 [facility] Comment on above: Order Comment: Speci men Type: BLOOD SPECIMENOrdering Facility: [facility] Address: [address] [place] [address] Performed By: #### 5 8410-2, 39065-1 ####[facility]CLIA [id number] [place] [address] [facility] [place] Lymphocytes/100 WBC (Bld) 7.0 % Normal [facility] Comment on above: Order Comment: Speci men Type: BLOOD SPECIMENOrdering Facility: [facility] Address: [address] [place] [address] Performed By: #### 5 8410-2, 51776-5 ####[facility] LABCLIA [id number] [place] [address] [place] Monocytes (Bld) [#/Vol] 1.14 10*3/uL High <0.87 [facility] Comment on above: Order Comment: Speci men Type: BLOOD SPECIMENOrdering Facility: [facility] Address: [address] [place] [address] Performed By: #### 5 8410-2, 14825-6 ####[facility] LABCLIA [id number] [place] [address] [place] Monocytes/100 WBC (Bld) 5.0 % Normal [facility] Comment on above: Order Comment: Speci men Type: BLOOD SPECIMENOrdering Facility: [facility] Address: [address] [place] [address] Performed By: #### 5 8410-2, 61590-5 ####[facility]CLIA [id number] [facility] [place] [address] [place] Neutrophils (Bld) [#/Vol] 20.07 10*3/uL High 1.45-7.50 [facility] Comment on above: Order Comment: Speci men Type: BLOOD SPECIMENOrdering Facility: [facility] Address: [address] [place] [address] Performed By: #### 5 8410-2, 95782-7 ####[facility] LABCLIA [id number] [facility] [place] [address] [place] Neutrophils/100 WBC (Bld) 88.0 % Normal [facility] Comment on above: Order Comment: Speci men Type: BLOOD SPECIMENOrdering Facility: [facility] Address: [address] [place] [address] Performed By: #### 5 8410-2, 92157-7 ####[facility] LABCLIA [id number] [place] [address] [place] Nucleated RBC (Bld) [#/Vol] 10*3/uL Normal <0.01 [facility] Comment on above: Order Comment: Speci men Type: BLOOD SPECIMENOrdering Facility: [facility] Address: [address] [place] [address] Performed By: #### 5 8410-2, 80355-1 ####[facility]CLIA [id number] [facility] [place] [address] [place] Nucleated RBC/100 WBC (Bld) [Ratio] 0.0 /100 WBC Normal [facility] Comment on above: Order Comment: Speci men Type: BLOOD SPECIMENOrdering Facility: [facility] Address: [address] [place] [address] Performed By: #### 5 8410-2, 49182-3 ####[facility] LABCLIA [id number] [place] [address] [facility] Platelets Estimate (Bld) [#/Vol] Adequate Normal [facility] Comment on above: Order Comment: Speci men Type: BLOOD SPECIMENOrdering Facility: [facility] Address: [address] [place] [address] Performed By: #### 5 8410-2, 06419-9 ####[facility]CLIA [id number] [place] [address] [facility] RED CELL MORPH Reviewed: see result s of individual morphologies Normal [facility] Comment on above: Order Comment: Speci men Type: BLOOD SPECIMENOrdering Facility: [facility] Address: [address] [place] [address] Performed By: #### 5 8410-2, 45066-3 ####[facility]CLIA [id number] [place] [address] [facility] CBC panel Auto (Bld)on 06-16 Erythrocyte distribution width (RBC) [Ratio] 13.1 % Normal 11.5-15.0 [facility] Comment on above: Order Comment: Speci men Type: URINE SPECIMEN [facility] Address: [address] [place] [address] Performed By: #### 2 4356-8 #### [facility] CLIA [id number] [address] [place] [address] [facility] Hematocrit (Bld) [Volume fraction] 40.1 % Normal 36.0-46.0 [facility] Comment on above: Order Comment: Speci men Type: URINE SPECIMEN [facility] Address: [address] [place] [address] Performed By: #### 2 4356-8 #### [facility] CLIA [id number] [address] [place] [address] [place] Hemoglobin (Bld) [Mass/Vol] 12.7 g/dL Normal 11.5-15.5 [facility] Comment on above: Order Comment: Speci men Type: URINE SPECIMEN [facility] Address: [address] [place] [address] Performed By: #### 2 4356-8 #### [facility] CLIA [id number] [address] [place] [address] [place] MCH (RBC) [Entitic mass] 32.1 pg Normal 26.0-34.0 [facility] Comment on above: Order Comment: Speci men Type: URINE SPECIMEN [facility] Address: [address] [place] [address] Performed By: #### 2 4356-8 #### [facility] CLIA [id number] [address] STATES [place] MCHC (RBC) [Mass/Vol] 31.7 g/dL Normal 30.5-36.0 [facility] Comment on above: Order Comment: Speci men Type: URINE SPECIMEN [facility] Address: [address] [place] [address] Performed By: #### 2 4356-8 #### [facility] CLIA [id number] [address] [place] [address] [place] MCV (RBC) [Entitic vol] 101.3 fL High 80.0-100.0 [facility] Comment on above: Order Comment: Speci men Type: URINE SPECIMEN [facility] Address: [address] [place] [address] Performed By: #### 2 4356-8 #### [facility] CLIA [id number] [address] [place] [address] [place] Platelet mean volume (Bld) [Entitic vol] 11.3 fL Normal 9.0-12.7 [facility] Comment on above: Order Comment: Speci men Type: URINE SPECIMEN [facility] Address: [address] [place] [address] Performed By: #### 2 4356-8 #### [facility] CLIA [id number] [address] [place] [address] [facility] Platelets (Bld) [#/Vol] 199 10*3/uL Normal 150-400 [facility] Comment on above: Order Comment: Speci men Type: URINE SPECIMEN [facility] Address: [address] [place] [address] Performed By: #### 2 4356-8 #### [facility] CLIA [id number] [address] [place], [place] [address] [place] [address] [place] RBC (Bld) [#/Vol] 3.96 10*6/uL Normal 3.90-5.20 [facility] Comment on above: Order Comment: Speci men Type: URINE SPECIMEN [facility] Address: [address] [place] [address] Performed By: #### 2 4356-8 #### [facility] CLIA [id number] [address] [facility] WBC (Bld) [#/Vol] 16.59 10*3/uL High 3.70-11.00 [facility] Comment on above: Order Comment: Speci men Type: URINE SPECIMEN [facility] Address: [address] [place] [address] Performed By: #### 2 4356-8 #### [facility] CLIA [id number] [address] [place] [address] [facility] Erythrocyte distribution width (RBC) [Ratio] 13.0 % Normal 11.5-15.0 [facility] Comment on above: Order Comment: Speci men Type: BLOOD SPECIMENOrdering Facility: [facility] Address: [address] [place] [address] Performed By: #### 5 8410-2, 43920-3 ####[facility] LABCLIA [id number] [place] [address] [place] Hematocrit (Bld) [Volume fraction] 44.5 % Normal 36.0-46.0 [facility] Comment on above: Order Comment: Speci men Type: BLOOD SPECIMENOrdering Facility: [facility] Address: [address] [place] [address] Performed By: #### 5 8410-2, 09541-9 ####[facility] LABCLIA [id number] [place] [address] [place] Hemoglobin (Bld) [Mass/Vol] 14.0 g/dL Normal 11.5-15.5 [facility] Comment on above: Order Comment: Speci men Type: BLOOD SPECIMENOrdering Facility: [facility] Address: [address] [place] [address] Performed By: #### 5 8410-2, 47759-0 ####[facility] LABCLIA [id number] [place] [address] [place] MCH (RBC) [Entitic mass] 32.6 pg Normal 26.0-34.0 [facility] Comment on above: Order Comment: Speci men Type: BLOOD SPECIMENOrdering Facility: [facility] Address: [address] [place] [address] Performed By: #### 5 8410-2, 07034-6 ####[facility] LABCLIA [id number] [place] [address] [place] MCHC (RBC) [Mass/Vol] 31.5 g/dL Normal 30.5-36.0 [facility] Comment on above: Order Comment: Speci men Type: BLOOD SPECIMENOrdering Facility: [facility] Address: [address] [place] [address] Performed By: #### 5 8410-2, 20374-8 ####[facility] LABCLIA [id number] [place] [address] [place] MCV (RBC) [Entitic vol] 103.5 fL High 80.0-100.0 [facility] Comment on above: Order Comment: Speci men Type: BLOOD SPECIMENOrdering Facility: [facility] Address: [address] [place] [address] Performed By: #### 5 8410-2, 99377-3 ####[facility] LABCLIA [id number] [place] [address] [place] Platelet mean volume (Bld) [Entitic vol] 11.0 fL Normal 9.0-12.7 [facility] Comment on above: Order Comment: Speci men Type: BLOOD SPECIMENOrdering Facility: [facility] Address: [address] [place] [address] Performed By: #### 5 8410-2, 33972-5 ####[facility] LABCLIA [id number] [place] [address] [place] Platelets (Bld) [#/Vol] 255 10*3/uL Normal 150-400 [facility] Comment on above: Order Comment: Speci men Type: BLOOD SPECIMENOrdering Facility: [facility] Address: [address] [place] [address] Performed By: #### 5 8410-2, 22723-2 ####[facility] LABCLIA [id number] [place] [address] [place] RBC (Bld) [#/Vol] 4.30 10*6/uL Normal 3.90-5.20 [facility] Comment on above: Order Comment: Speci men Type: BLOOD SPECIMENOrdering Facility: [facility] Address: [address] [place] [address] Performed By: #### 5 8410-2, 74942-7 ####[facility] LABCLIA [id number] [place] [address] [place] WBC (Bld) [#/Vol] 22.81 10*3/uL High 3.70-11.00 [facility] Comment on above: Order Comment: Speci men Type: BLOOD SPECIMENOrdering Facility: [facility] Address: [address] [place] [address] Performed By: #### 5 8410-2, 69487-7 ####[facility] [id number] [place] [address] [facility] CNPSoni 06-16-2023 CNPN Telephone (MEPRAD) LISA CHAUDHRY ([id number]) 1980 F Date Time Provider Department 06/16/23 CHUCKY SELF During your visit today, we recorded the following information about you: Chucky Self MD 06/16/2023 5:00 PM Signed A admission [place] [facility] to [facility] : This 43 yo female with known history of drug abuse heroin who came in with uresponsive episode resolved emergency room after few doses of Narcan, She has no no chest pain , EKG showed no ischemic changes but HST was 69, WBC 22 K , tox scr : Cocaine only .CT brain was unremarkable. Cardiology were contacted given the elevation in SF troponin. Cardiology approved admission to [facility]. Allergies As of Date: 06/16/2023 (No Known Allergies) Date Reviewed: 06/16/2023 Reviewed by: Gian Macdonald MD - Fully Assessed Facility-Administered Medications as of 06/16/2023 - NaCl 0.9% iv infusion Problem List As Of Date: 06/16/2023 (None) Encounter Status:Closed by CHUCKY SELF on 06/16/23 Normal [facility] CT BRAIN WO IVCONon 06-16-19 CT BRAIN WO IVCON * * *Final Report* * * DATE OF EXAM: Jun 16 2023 9:44AM [facility] 0504 - CT BRAIN WO IVCON / PROCEDURE REASON: Mental status change, unknown cause * * * * Physician Interpretation * * * * EXAMINATION: CT BRAIN WO IVCON CLINICAL HISTORY: Unresponsive, evaluate for potential trauma TECHNIQUE: Serial axial images without IV contrast were obtained from the vertex to the foramen magnum. MQ: [id number]_3 CT Radiation dose: Integrated Dose-Length Product (DLP) for this visit = 706.22 mGy*cm CT Dose Reduction Employed: No dose reduction techniques were required COMPARISON: None. RESULT: Post-operative change: None. Acute change: No evidence of an acute infarct or other acute parenchymal process. Hemorrhage: No evidence of acute intracranial hemorrhage. ECASS hemorrhagic transformation score: Not Applicable Mass Lesion / Mass Effect: There is no evidence of an intracranial mass or extraaxial fluid collection. No significant mass effect. Chronic change: None apparent. Parenchyma: There is no significant volume loss. The brain parenchyma is otherwise within normal limits for age. Ventricles: The ventricles are within normal limits of size and configuration for age. Paranasal sinuses and skull base: The visualized paranasal sinuses are grossly clear. The skull base and imaged soft tissues are unremarkable. IMPRESSION: No CT evidence of acute intracranial abnormalities Coordinator Hotels: [facility] Transcribe Date/Time: Jun 16 2023 9:50A Dictated by : KIM RODRIGUEZ MD This examination was interpreted and the report reviewed and electronically signed by: KIM RODRIGUEZ MD on Jun 16 2023 9:52AM EST [id number] Normal [facility] CT CERVICAL SPINE WO IVCONon 06-16-2023 CT CERVICAL SPINE WO IVCON * * *Final Report* * * DATE OF EXAM: Jun 16 2023 9:44AM [facility] 0505 - CT CERVICAL SPINE WO IVCON / PROCEDURE REASON: Neck trauma, intoxicated or obtunded (Age >= 16y) * * * * Physician Interpretation * * * * EXAMINATION: CT CERVICAL SPINE WO IVCON CLINICAL HISTORY: Neck trauma, neck pain TECHNIQUE: Spiral, high resolution axial unenhanced images were obtained from the skull base to the cervicothoracic junction with sagittal and coronal planar reconstructions. MQ: [id number] CT Radiation dose: Integrated CT Dose-Length Product (DLP) for this visit = 706.22 mGy*cm CT Dose Reduction Employed: No dose reduction techniques were required COMPARISON: None. RESULT: Counting reference: Craniocervical junction. Anatomic Variants: None. Implementation Coordinator (topogram) images: Unremarkable. Alignment: Mild levoscoliosis cervical thoracic level Craniocervical junction: Craniocervical junction is normal. Osseous structures/fracture: No evidence of a lytic or blastic process in the visualized spine. No evidence of acute or chronic fracture. Cervical soft tissues: The paraspinal soft tissues are within normal limits. Degenerative changes: C3-4 level: Mild degenerative left foraminal narrowing due to facet arthropathy. C5-6 level, moderate right foraminal stenosis due to uncovertebral hypertrophy. IMPRESSION: 1. No CT evidence of acute traumatic injury to the cervical spine 2.C3-4 level: Mild degenerative left foraminal narrowing due to facet arthropathy. C5-6 level, moderate right foraminal stenosis due to uncovertebral hypertrophy. Anatomic Variant: None. Assume 7 cervical vertebrae with counting from the craniocervical junction. Coordinator Hotels: SURENDRA Transcribe Date/Time: Jun 16 2023 9:54A Dictated by : KIM RODRIGUEZ MD This examination was interpreted and the report reviewed and electronically signed by: KIM RODRIGUEZ MD on Jun 16 2023 9:58AM EST [id number] Normal [facility] CT FACIAL BONE/GWENDOLYN WO IVCON on 06-16-2023 CT FACIAL BONE/GWENDOLYN WO IVCON * * *Final Report* * * DATE OF EXAM: Jun 16 2023 9:44AM [facility] 0507 - CT FACIAL BONE/GWENDOLYN WO IVCON / PROCEDURE REASON: Nasal fracture suspected * * * * Physician Interpretation * * * * EXAMINATION: CT FACIAL BONE/GWENDOLYN WO IVCON CLINICAL HISTORY: Unresponsive, nosebleed evaluate for facial injury Technique: Spiral high resolution axial unenhanced images were obtained through the facial bones with sagittal and coronal planar reconstructions. MQ: [id number] CT Radiation dose: Integrated Dose-Length Product (DLP) for this visit = 706.22 mGy*cm. CT Dose Reduction Employed: No dose reduction techniques were required COMPARISON: None. RESULT: Soft Tissues: No significant superficial soft tissue swelling. Facial bones: No evidence of an acute fracture in the visualized facial bones. Orbits: No evidence of an acute fracture. The globes are intact. The soft tissue planes of the orbits are maintained. No signs of acute injury to the orbits Paranasal Sinuses: Small fluid level right maxillary sinus.. Foreign Bodies: No evidence of radiopaque foreign bodies. Visualized lower brain and visualized upper neck is unremarkable IMPRESSION: No evidence of acute facial bone fracture. Small fluid level right maxillary sinus.. Coordinator Hotels: SURENDRA Transcribe Date/Time: Jun 16 2023 9:58A Dictated by : KIM RODRIGUEZ MD This examination was interpreted and the report reviewed and electronically signed by: KIM RODRIGUEZ MD on Jun 16 2023 10:02AM EST [id number] Normal [facility] Comprehensive metabolic 2000 panelon 06-16-2023 Albumin [Mass/Vol] 4.5 g/dL Normal 3.9-4.9 [facility] Comment on above: Order Comment: Macey marin Type: BLOOD SPECIMENOrdering Facility: [facility] Address: [address] [place] [address] Performed By: #### 2 4323-8, 3039-3, ####[facility] LABCLIA [id number] [place] [address] [place] ALP [Catalytic activity/Vol] 80 U/L Normal 34-123 [facility] Comment on above: Order Comment: Macey marin Type: BLOOD SPECIMENOrdering Facility: [facility] Address: [address] [place] [address] Performed By: #### 2 4323-8, 3039-3, ####[facility] LABCLIA [id number] [place] [address] [place] ALT With P-5'-P [Catalytic activity/Vol] 33 U/L Normal 7-38 [facility] Comment on above: Order Comment: Macey marin Type: BLOOD SPECIMENOrdering Facility: [facility] Address: [address] [place] [address] Performed By: #### 2 4323-8, 3040-3, 88063-3 ####[facility] LABCLIA [id number] [place] [address] [place] Anion gap [Moles/Vol] 19 mmol/L High 9-18 [facility] Comment on above: Order Comment: Speci men Type: BLOOD SPECIMENOrdering Facility: [facility] Address: [address] [place] [address] Performed By: #### 2 4323-8, 0-3, ####[facility] [place] LABCLIA [id number] [place] [address] [place] AST With P-5'-P [Catalytic activity/Vol] 41 U/L High 13-35 [facility] Comment on above: Order Comment: Speci men Type: BLOOD SPECIMENOrdering Facility: [facility] Address: [address] [place] [address] Performed By: #### 2 4323-8, 3039-3, ####[facility] [place] LABCLIA [id number] [place] [address] [place] Bilirubin [Mass/Vol] 0.2 mg/dL Normal 0.2-1.3 [facility] Comment on above: Order Comment: Speci men Type: BLOOD SPECIMENOrdering Facility: [facility] Address: [address] [place] [address] Performed By: #### 2 4323-8, 3039-3, ####[facility] [place] LABCLIA [id number] [place] [address] [place] Calcium [Mass/Vol] 9.4 mg/dL Normal 8.5-10.2 [facility] Comment on above: Order Comment: Speci men Type: BLOOD SPECIMENOrdering Facility: [facility] Address: [address] [place] [address] Performed By: #### 2 4323-8, 3039-3, ####[facility] [place] LABCLIA [id number] [place] [address] [place] Chloride [Moles/Vol] 102 mmol/L Normal 97-105 [facility] Comment on above: Order Comment: Speci men Type: BLOOD SPECIMENOrdering Facility: [facility] Address: [address] [place] [address] Performed By: #### 2 4323-8, 3, ####[facility] LABCLIA [id number] [place] [address] [facility] CO2 [Moles/Vol] 21 mmol/L Low 22-30 [facility] Comment on above: Order Comment: Speci men Type: BLOOD SPECIMENOrdering Facility: [facility] Address: [address] [place] [address] Performed By: #### 2 4323-8, 3039-06, ####[facility] LABCLIA [id number] [place] [address] [facility] Creatinine [Mass/Vol] 0.93 mg/dL Normal 0.58-0.96 [facility] Comment on above: Order Comment: Speci men Type: BLOOD SPECIMENOrdering Facility: [facility] Address: [address] [place] [address] Performed By: #### 2 4323-8, 3039-06, ####[facility] LABCLIA [id number] [place] [address] [facility] Creatinine and Glomerular filtration rate.predicted panel (S/P/Bld) 78 mL/min/1.73m??? Normal >=60 [facility] Comment on above: Order Comment: Speci men Type: BLOOD SPECIMENOrdering Facility: [facility] Address: [address] [place] [address] Result Comment: Rosario mated Glomerular Filtration Rate (eGFR) is calculated using the 2020 CKD-EPI creatinine equation. This equation utilizes serum creatinine, sex, and age as parameters. The creatinine assay has traceable calibration to isotope dilution-mass spectrometry. Refer to KDIGO guidelines for clinical interpretation. In patients with unstable renal function, e.g. those with acute kidney injury, the eGFR may not accurately reflect actual GFR. Performed By: #### 2 4323-8, 3, ####[facility] LABCLIA [id number] [place] [address] [place] Glucose [Mass/Vol] 104 mg/dL High 74-99 [facility] Comment on above: Order Comment: Speci men Type: BLOOD SPECIMENOrdering Facility: [facility] Address: [address] [place] [address] Result Comment: The [place] Diabetes Association (ADA) provides guidance for cutoff values for fasting glucose and random glucose. The ADA defines fasting as no caloric intake for at least 8 hours. Fasting plasma glucose results between 100 to 125 mg/dL indicate increased risk for diabetes (prediabetes). Fasting plasma glucose results greater than or equal to 126 mg/dL meet the criteria for diagnosis of diabetes. In the absence of unequivocal hyperglycemia, results should be confirmed by repeat testing. In a patient with classic symptoms of hyperglycemia or hyperglycemic crisis, random plasma glucose results greater than or equal to 200 mg/dL meet the criteria for diagnosis of diabetes. Reference: Standards of Medical Care in Diabetes 2016, [place] Diabetes Association. Diabetes Care. 2016.39(Suppl 1). Performed By: #### 2 4323-8, 3039-3, ####[facility] LABIA [id number] [place] [address] [place] Potassium [Moles/Vol] 5.2 mmol/L High 3.7-5.1 [facility] Comment on above: Order Comment: Sravanii men Type: BLOOD SPECIMENOrdering Facility: [facility] Address: [address] [place] [address] Performed By: #### 2 4323-8, 3039-3, ####[facility] LABIA [id number] [place] [address] [place] Protein [Mass/Vol] 7.5 g/dL Normal 6.3-8.0 [facility] Comment on above: Order Comment: Sravanii men Type: BLOOD SPECIMENOrdering Facility: [facility] Address: [address] [place] [address] Performed By: #### 2 4323-8, 3039-3, ####[facility] [place] LABCLIA [id number] [place] [address] [place] Sodium [Moles/Vol] 142 mmol/L Normal 136-144 [facility] Comment on above: Order Comment: Speci men Type: BLOOD SPECIMENOrdering Facility: [facility] Address: [address] [place] [address] Performed By: #### 2 4323-8, 3040-3, 74690-7 ####[facility] LABCLIA [id number] [place] [address] [place] Urea nitrogen [Mass/Vol] 13 mg/dL Normal 7-21 [facility] Comment on above: Order Comment: Speci men Type: BLOOD SPECIMENOrdering Facility: [facility] Address: [address] [place] [address] Performed By: #### 2 4323-8, 3040-3, 98699-9 ####[facility] LABCLIA [id number] [place] [address] [place] ECG COMPLETEon 06-16-2023 ECG COMPLETE Ventricular Rate : 8 6 BPM Atrial Rate : 86 BPM P-R Interval : 148 ms QRS Duration : 70 ms Q-T Interval : 392 ms QTC Calculation(Bazett) : 469 ms Calculated P [place] : 51 degrees Calculated R [place] : 52 degrees Calculated T [place] : 51 degrees NORMAL SINUS RHYTHM CANNOT RULE OUT ANTERIOR INFARCT , AGE UNDETERMINED ABNORMAL ECG Confirmed by MD VELOZ VINAYAK ([id number]) on 06/18/2023 10:51:28 PM NAME : LISA CHAUDHRY PID : [id number] : 1980 Gender : Female Race : ORD : [id number] Procedure Date : Jun 16 2023 12:08:48 Edit Date : Jun 18 2023 22:51:29 Diagnosis: NORMAL SINUS RHYTHM CANNOT RULE OUT ANTERIOR INFARCT , AGE UNDETERMINED ABNORMAL ECG Confirmed by MD VELOZ VINAYAK ([id number]) on 06/18/2023 10:51:28 PM Test Reason : Chest Pain Location : 150 : [place] ED Overread By : MD VELOZ VINAYAK Edited By : MD VELOZ VINAYAK Referred By : , Acquired by : JUAREZ CONNOLLY [facility] ECG COMPLETE Ventricular Rate : 9 8 BPM Atrial Rate : 98 BPM P-R Interval : 156 ms QRS Duration : 66 ms Q-T Interval : 376 ms QTC Calculation(Bazett) : 480 ms Calculated P [place] : 66 degrees Calculated R [place] : 57 degrees Calculated T [place] : 54 degrees POOR DATA QUALITY, INTERPRETATION MAY BE ADVERSELY AFFECTED NORMAL SINUS RHYTHM PROLONGED QT ABNORMAL ECG NO PREVIOUS ECGS AVAILABLE Confirmed by MD VELOZ VINAYAK ([id number]) on 06/18/2023 10:51:17 PM NAME : LISA CHAUDHRY PID : [id number] : 1980 Gender : Female Race : ORD : [id number] Procedure Date : Jun 16 2023 08:38:56 Edit Date : Jun 18 2023 22:51:17 Diagnosis: POOR DATA QUALITY, INTERPRETATION MAY BE ADVERSELY AFFECTED NORMAL SINUS RHYTHM PROLONGED QT ABNORMAL ECG NO PREVIOUS ECGS AVAILABLE Confirmed by MD VELOZ VINAYAK ([id number]) on 06/18/2023 10:51:17 PM Test Reason : od [facility] : [facility] By : MD VELOZ VINAYAK Edited By : MD VELOZ VINAYAK Referred By : Torres Acquired by : HAKAN BELTRAN [facility] ED NOTEon 06-16-2023 ED NOTE HNO ID: [id number] Author: HELEN MINAYA RN Service: Nursing Author Type: Registered Nurse Type: ED Notes Filed: 06/16/2023 18:33 Note Text: Report to [facility] rep [facility] ED NOTE HNO ID: [id number] Author: HELEN MINAYA RN Service: Nursing Author Type: Registered Nurse Type: ED Notes Filed: 06/16/2023 17:16 Note Text: Meal tray ordered for pt [facility] ED NOTE HNO ID: [id number] Author: KONRAD KRAUSE RN Service: ? Author Type: Registered Nurse Type: ED Notes Filed: 06/16/2023 16:50 Note Text: Pt to go to [facility] bed 419-1, phone number for report [phone]. [facility] called for transport eta 90 min [facility] ED NOTE HNO ID: [id number] Author: HELEN MINAYA RN Service: Nursing Author Type: Registered Nurse Type: ED Notes Filed: 06/16/2023 15:14 Note Text: 2LNC discontinued, pt sat 98% RA, Dr Macdonald made aware [facility] ED NOTE HNO ID: [id number] Author: HELEN MINAYA, DILLON Service: Nursing Author Type: Registered Nurse Type: ED Notes Filed: 06/16/2023 14:56 Note Text: Pt return to bed from using bsc, 02 sat 88% with reliable waveform, 2LNC placed on pt [facility] ED NOTE HNO ID: [id number] Author: HELEN MINAYA RN Service: Nursing Author Type: Registered Nurse Type: ED Notes Filed: 06/16/2023 14:26 Note Text: Pt talking to her mother on the phone. [place] [phone] [facility] ED NOTE HNO ID: [id number] Author: KONRAD KRAUSE RN Service: ? Author Type: Registered Nurse Type: ED Notes Filed: 06/16/2023 14:14 Note Text: Meal tray delivered to pt, dr macdonald at bedside speaking with pt regarding plan of care [facility] ED NOTE HNO ID: [id number] Author: KONRAD KRAUSE RN Service: ? Author Type: Registered Nurse Type: ED Notes Filed: 06/16/2023 13:49 Note Text: Meal tray ordered for pt [facility] ED NOTE HNO ID: [id number] Author: KONRAD KRAUSE RN Service: ? Author Type: Registered Nurse Type: ED Notes Filed: 06/16/2023 13:48 Note Text: Patient informed: the name of medication, why we are giving it, possible side effects, what they may expect to feel, and was offered a chance to ask questions, prior to the administration of rocephin [facility] ED NOTE HNO ID: [id number] Author: HELEN MINAYA RN Service: Nursing Author Type: Registered Nurse Type: ED Notes Filed: 06/16/2023 10:27 Note Text: Dr Macdonald at bedside to talk to the patient and her sister [facility] ED NOTE HNO ID: [id number] Author: HELEN MINAYA, DILLON Service: Nursing Author Type: Registered Nurse Type: ED Notes Filed: 06/16/2023 10:27 Note Text: Pt family at bedside, Pt has been given a small bottle of water [facility] ED NOTE HNO ID: [id number] Author: HELEN MINAYA, RN Service: Nursing Author Type: Registered Nurse Type: ED Notes Filed: 06/16/2023 10:28 Note Text: Pt sister is asking about test results and plan of care, I let her know that Dr Macdonald would be in to discuss that information with the patient [facility] ED NOTE HNO ID: [id number] Author: HELEN MINAYA RN Service: Nursing Author Type: Registered Nurse Type: ED Notes Filed: 06/16/2023 09:46 Note Text: Upon returning from [facility], pt 02 sat at 88% RA, placed on 2LNC with sat increasing to 99% rapidly, will continue to monitor [facility] ED NOTE HNO ID: [id number] Author: HELEN MINAYA RN Service: Nursing Author Type: Registered Nurse Type: ED Notes Filed: 06/16/2023 13:01 Note Text: Pt arrives via [facility] squad with report of possible drug overdose. Pt administered 2 intranasal Narcan upon EMS arrival. Pt has hx of drug abuse. EMS reports finding pt in the basement of a home, pt was naked at the time. EMS reporting when they arrived on scene the pt was unresponsive and agonal breathing Unable to assess medical history. Pt responds to verbal stimuli. Pt is able to give her first name. [facility] ED PROV NOTEon 06-16-2023 ED PROV NOTE HNO ID: [id number] Author: GIAN MACDONALD MD Service: Emergency Medicine Author Type: Physician Type: ED Provider Notes Filed: 06/16/2023 14:45 Note Text: ED Provider Note Patient Name: Lisa Brown : 1980 SERVICE DATE: 06/16/23 History Patient presents with: Overdose Patient with a known history, is brought in by EMS, for concerns over possible substance abuse and overdose. Patient is not answering questions on initial presentation, and history is provided per EMS, and police in the emergency department. Patient does reportedly have a history of known substance abuse, and she states she has previously used heroin. There was drug paraphernalia, including a straw, with a powdery substance on the scene. Patient was found, on the basement floor, minimally responsive this morning, naked, with agonal respirations. EMS was called, gave 2 intranasal Narcan, and the patient began coming more responsive. Patient brought to the ER with the above. Patient denies any current substance abuse, however she states she has previously used heroin. Friend on scene, notes patient was last seen approximately 1030,pm when she was going to bed. Mental Status Changes Presenting symptoms: unresponsiveness Severity: Unable to specify Context: drug use Associated symptoms: nausea and vomiting No past medical history on file. No past surgical history on file. No family history on file. Social History Tobacco Use - Smoking status: Not on file - Smokeless tobacco: Not on file Substance and Sexual Activity - Alcohol use: Not on file - Drug use: Not on file - Sexual activity: Not on file ALLERGIES No Known Allergies Review of Systems Unable to perform ROS: Mental status change (There is suspicion of drug use) Gastrointestinal: Positive for nausea and vomiting. Physical Exam Vitals [06/16/23 0802] BP Pulse Temp Temp src Resp SpO2 Weight Height 158/84 (!) 105 36.2 ?C (97.1 ?F) Temporal -- -- 68 kg (150 lb) 1.626 m (5' 4) Physical Exam Vitals and nursing note reviewed. Constitutional: Comments: Patient is writhing ctds-cec-smjds in the stretcher HENT: Head: Normocephalic and atraumatic. Nose: No congestion or rhinorrhea. Comments: There is dried blood about the both naris, and on the philtrum, and upper lip and right the nose, there is no septal hematoma, there is no obvious bony deformities, there is no large deformity to the bones of the face, nasal bridge Eyes: General: Right eye: No discharge. Left eye: No discharge. Extraocular Movements: Extraocular movements intact. Pupils: Pupils are equal, round, and reactive to light. Cardiovascular: Rate and Rhythm: Regular rhythm. Tachycardia present. Pulses: Normal pulses. Heart sounds: No murmur heard. Pulmonary: Effort: Pulmonary effort is normal. No respiratory distress. Breath sounds: No wheezing or rales. Comments: Patient has a frequent coarse cough Abdominal: General: There is no distension. Tenderness: There is no abdominal tenderness. There is no guarding. Musculoskeletal: General: No swelling, tenderness or signs of injury. Cervical back: Normal range of motion and neck supple. No rigidity or tenderness. Right lower leg: No edema. Left lower leg: No edema. Lymphadenopathy: Cervical: No cervical adenopathy. Skin: General: Skin is warm and dry. Neurological: Comments: Patient is awake, she states her name, she is unable to provide any other meaningful history, she does follow simple commands, she opens her eyes, she tracks with her eyes, she spontaneously moves all her extremities Direct questioning, patient cannot initially spell her last name, she cannot explain the events prior, Diagnostic Testing ED Labs Ordered and Reviewed - No data to display Procedures ED Course / Clinical Impression Clinical Impressions as of 06/16/23 1348 Overdose of undetermined intent, initial encounter Leukocytosis, unspecified type Elevated troponin COVID-19 test performed per [facility] [place] policy for suspected COVID community exposure. MDM / Disposition / Plan This a 43-year-old female, with relatively unknown medical history, who presents to the emergency permit, for Suspicion of a possible drug overdose. Per EMS, police on scene, patient does have a known history of substance abuse, there was drug paraphernalia at the house. Patient was found downstairs in the basement, naked, with only minimal responsiveness, agonal respirations. EMS was called, gave 2 doses of intranasal Narcan, and the patient was becoming more responsive and route to the hospital. Patient was awake, however not really alert on my initial presentation. She appeared confused, and somewhat altered., Suspicion for substance abuse is high, however patient does have a bloody nose, concern for possible trauma, injury, other. Secondary to above, broad workup including imaging, (more content not included)... Normal [facility] Ethanol SerPl-mCncon 024 Ethanol [Mass/Vol] mg/dL Normal <11 [facility] Comment on above: Order Comment: Speci men Type: URINE SPECIMEN [facility] Address: [address] [place] [address] Performed By: #### 2 4356-8 #### [facility] [place] [facility] CLIA [id number] [address] [place] [address] [place] FLUABV+SARS-CoV-2+RSV Pnl Re sp CHANDANA+probeon 06-16-2023 FLUABV+SARS-CoV-2+RS V Pnl Resp CHANDANA+probe COVID 19 RESULT: Not detected The method used is RT-PCR or an equivalent NAAT method. Reference Range(the expected result in uninfected individuals): Not detected INFLUENZA A PCR: Not detected INFLUENZA B PCR: Not detected RSV PCR: Not detected Normal [facility] Comment on above: Performed By: #### 9 5941-1 #### [facility] [place] [facility] CLIA [id number] [address] [place] [address] [place] HIGH SENSITIVITY TROPONIN To n 06-16-2023 Troponin T.cardiac High sensitivity method [Mass/Vol] 61 ng/L High <12 [facility] Comment on above: Order Comment: Sravaniraegan marin Type: URINE SPECIMEN [facility] Address: [address] [place] [address] Result Comment: When assessing risk for acute coronary syndromes: In patients undergoing blood draw greater than or equal to 2 hours from symptom onset, with history of very low to moderate risk and non-ischemic ECG, an initial hs-Troponin T less than 12 ng/L AND a 1 hour delta hs-Troponin T less than 3 ng/L should be considered very low risk for 30 day MACE. Performed By: #### 2 4356-8 #### [facility] CLIA [id number] [address] [place], [place] [id number] [facility] Troponin T.cardiac High sensitivity method [Mass/Vol] 81 ng/L High <12 [facility] Comment on above: Order Comment: Macey marin Type: URINE SPECIMEN [facility]: [facility] Address: [address] [place] [address] Result Comment: When assessing risk for acute coronary syndromes: In patients undergoing blood draw greater than or equal to 2 hours from symptom onset, with history of very low to moderate risk and non-ischemic ECG, an initial hs-Troponin T less than 12 ng/L AND a 1 hour delta hs-Troponin T less than 3 ng/L should be considered very low risk for 30 day MACE. Performed By: #### 2 4356-8 #### [facility] [place] [facility] CLIA [id number] [address] [place] [address] [place] Troponin T.cardiac High sensitivity method [Mass/Vol] 69 ng/L High <12 [facility] Comment on above: Order Comment: Speci men Type: BLOOD SPECIMENOrdering Facility: [facility] Address: [address] [place] [address] Result Comment: When assessing risk for acute coronary syndromes: In patients undergoing blood draw greater than or equal to 2 hours from symptom onset, with history of very low to moderate risk and non-ischemic ECG, an initial hs-Troponin T less than 12 ng/L AND a 1 hour delta hs-Troponin T less than 3 ng/L should be considered very low risk for 30 day MACE. Performed By: #### H STNT ####[facility] LABCLIA [id number] [place] [address] [place] HISTORY PHYSICALon HISTORY PHYSICAL HNO ID: [id number] Author: KIMBERLEE STAPLES MD Service: Hospital Medicine Author Type: Physician Type: H&P Filed: 06/16/2023 23:52 Note Text: DEPARTMENT OF HOSPITAL MEDICINE HISTORY AND PHYSICAL EXAM SERVICE DATE: 06/16/2023 SERVICE TIME: 6:51 PM Primary Care Physician: No primary care provider on file. NIGHT AND WEEKEND COVERAGE: [place] COVERAGE: Days: [phone], please page attending physician. Nights: [phone], please page [facility] Night coverage pager [phone]. Subjective CHIEF COMPLAINT: drug overdose HPI: This is a 43 year old female with hx of drug/Heroin abuse presents with drug overdose. On EMS arrival, patient was in the basement, minimally responsive, naked and agonal breathing, powdery substance and straw at the scene. Stat 2 doses of intranasal narcan given with response. No CPR was given as pulses palpable. But was still very drowsy and was brought to the ED. Friend on scene stated last seen at 1030 pm last night. On my encounter she c/o non productive cough for past 4 days, left sided non radiating chest pain and an episode of vomiting and dysuria. No palpitation, sob. Has been dealing with lot of stress recently due to loss of job and living space.She states she used to use heroin before but has been clean since February 2024. She states she doesn't know how they found cocaine in [facility]. She denies suicidal attempt or thought, but accepts is depressed. HD stable. Difficulty obtaining IV access initially. Labs showed leucocytosis 22k , trop 69>81>61, K 5.2. Bicarb 21, AG 19, lactate 1.3, HCG negative. Alcohol negative. UDS cocaine positive. Given leucocytosis, UA positive, infectious workup was initiated including Ucx , Bcx, lactate. Given fall, CT head/face/ cervical spine was done which was clear. Received 1 L fluid bolus and patient was admitted for observation Mother: Hakan [phone] No past medical history on file. No past surgical history on file. No family history on file. PRIOR TO ADMISSION MEDICATIONS: No medications prior to admission. ALLERGIES No Known Allergies REVIEW OF SYSTEM: Review of Systems Constitutional: +fatigue. Emotional HENT: Negative for congestion. Eyes: Negative for visual disturbance. Respiratory: +cough and no shortness of breath. Cardiovascular: +chest pain. Gastrointestinal: Negative for diarrhea, abdominal pain, blood in stool, constipation, + nausea and vomiting. Genitourinary: + dysuria and urgency. Musculoskeletal: Negative for myalgias. Skin: Negative for rash and wound. Neurological: Negative for dizziness, weakness, light-headedness, numbness and headaches. Objective PHYSICAL EXAM: There were no vitals taken for this visit. Physical Exam Performed: Physical Exam General: not in acute distress. Neck: No JVD. Cardiovascular: Normal rate and regular rhythm. Normal heart sounds. No murmur heard. Pulmonary: No respiratory distress. Normal breath sounds. No stridor. No wheezing or rales. Abdominal: Bowel sounds are normal. There is no distension. There is no abdominal tenderness. There is no guarding or rebound. Musculoskeletal: No tenderness or deformity. Normal range of motion. ROM good Skin: Skin is warm and dry. Skin is not pale. No erythema or rash. Neurological: He is alert and oriented to person, place, and time. Psychiatric: Behavior normal. Lines, Drains, and Airways Line Duration Peripheral 06/16/23 0837 [facility] Short Right Arm 20 Gauge <1 day Reviewed lines and needs to be continued: REASONS: Intravenous fluids DATA: Diagnostic tests reviewed for today's visit: Most recent labs Most recent imaging Most recent EKG Assessment/Plan Problem List No active problems on problem list HOSPITAL COURSE: 43 year old female with hx of drug/Heroin abuse presents with drug overdose. Drug overdose Minimally responsive and agonal breathing improved with narcan H/o heroin use Clinical depression Could be mixed with opiods. Improved with intranasal narcan. Currently back to baseline mentation. Denies use of illicit drug Psychiatry consult. Possibly needs addition of antidepressant Symptomatic UTI C/o dysuria Leucocytosis 22k>16k Urine and blood culture pending Start ceftriaxone until urine culture results Gap metabolic acidosis Hypovolemia Clinical dehydration Less concerning for methyl/ethylene glycol overdose. Maintenance IVF Left sided non radiating chest pain Trop 69>81>61 EKG shows NSR without ST/ T wave changes Check esr and crp and order echo Less concerning for pleuritic or pericardial condition But CXR does show bilateral nonspecific prominence of pulmonary vasculature. Check ntprobnp and d dimer Monitor on telemetry Fall CT head/face/ cervical spine is clear without fracture Fall precautions Difficult IV access Has 18G IV line Medication Reconciliation: Completed Medication and Non-Pharmaco (more content not included)... Normal [facility] Lactate (Bld) [Moles/Vol]on 06-16-2023 Lactate [Moles/Vol] 1.3 mmol/L Normal 0.5-2.2 [facility] Comment on above: Order Comment: Speci men Type: URINE SPECIMEN Ordering Facility: [facility] Address: [address] [place] [address] Performed By: #### 2 4356-8 #### [facility] CLIA [id number] [address] [place] [address] [place] Lipase SerPl-cCncon 06-16-19 24 Lipase [Catalytic activity/Vol] 26 U/L Normal 16-61 [facility] Comment on above: Order Comment: Speci men Type: BLOOD SPECIMENOrdering Facility: [facility] Address: [address] [place] [address] Performed By: #### 2 4323-8, 3040-3, 88316-3 ####[facility] [id number] [address] [place] MORPH WAM REFLEXon 4 Anisocytosis Ql (Bld) Present Normal [facility] Comment on above: Order Comment: Speci men Type: URINE SPECIMEN Ordering Facility: [facility] Address: [address] [place] [address] Performed By: #### 2 4356-8 #### [facility] CLIA [id number] [address] [phone] [facility] [place] Platelets Estimate (Bld) [#/Vol] Adequate Normal [facility] Comment on above: Order Comment: Speci men Type: URINE SPECIMEN Ordering Facility: [facility] Address: [address] [place] [address] Performed By: #### 2 4356-8 #### [facility] CLIA [id number] [address] [phone] [place] RED CELL MORPH Reviewed: see result s of individual morphologies Normal [facility] Comment on above: Order Comment: Speci men Type: URINE SPECIMEN Ordering Facility: [facility] Address: [address] [place] [address] Performed By: #### 2 4356-8 #### [facility] CLIA [id number] [address] [place] [address] [facility] [place] TOX SCREEN ROUT URon 024 Amphetamines Confirm (U) [Mass/Vol] Negative Normal Negative [facility] Comment on above: Order Comment: Speci men Type: URINE SPECIMENOrdering Facility: [facility] Address: [address] [place] [address] Result Comment: Cuto ff threshold at 1000 ng/mL. Performed By: #### U TOX2 ####[facility] [id number] [place] [address] [facility] BARBITURATES, URINE Negative Normal Negative [facility] Comment on above: Order Comment: Speci men Type: URINE SPECIMENOrdering Facility: [facility] Address: [address] [place] [address] Result Comment: Cuto ff threshold at 200 ng/mL. Performed By: #### U TOX2 ####[facility] [id number] [place] [address] [place] BENZODIAZEPINES, UR Negative Normal Negative [facility] Comment on above: Order Comment: Speci men Type: URINE SPECIMENOrdering Facility: [facility] Address: [address] [place] [address] Result Comment: Cuto ff threshold at 200 ng/mL. Performed By: #### U TOX2 ####[facility] [id number] [place] [address] [facility] Cannabinoids Screen Ql (U) Negative Normal Negative [facility] Comment on above: Order Comment: Speci men Type: URINE SPECIMENOrdering Facility: [facility] Address: [address] [place] [address] Result Comment: Cuto ff threshold at 50 ng/mL. Performed By: #### U TOX2 ####[facility] [id number] [place] [address] [place] Cocaine Ql (U) Positive Abnormal Negative [facility] Comment on above: Order Comment: Speci men Type: URINE SPECIMENOrdering Facility: [facility] Address: [address] [place] [address] Result Comment: Cuto ff threshold at 300 ng/mL. Performed By: #### U TOX2 ####[facility] [id number] [place] [address] [place] Ethanol (U) [Mass/Vol] <11 Normal <11 [facility] Comment on above: Order Comment: Speci men Type: URINE SPECIMENOrdering Facility: [facility] Address: [address] [place] [address] Performed By: #### U TOX2 ####[facility] [id number] [place] [address] [facility] Opiates Screen Ql (U) Negative Normal Negative [facility] Comment on above: Order Comment: Speci men Type: URINE SPECIMENOrdering Facility: [facility] Address: [address] [place] [address] Result Comment: Cuto ff threshold at 300 ng/mL. Performed By: #### U TOX2 ####[facility] [id number] [place] [address] [facility] oxyCODONE cutoff Screen (U) [Mass/Vol] Negative Normal Negative [facility] Comment on above: Order Comment: Speci men Type: URINE SPECIMENOrdering Facility: [facility] Address: [address] [place] [address] Result Comment: Cuto ff threshold at 100 ng/mL. Performed By: #### U TOX2 ####[facility] [id number] [address] Phencyclidine Ql (U) Negative Normal Negative [facility] Comment on above: Order Comment: Speci men Type: URINE SPECIMENOrdering Facility: [facility] Address: [address] [place] [address] Result Comment: Cuto ff threshold at 25 ng/mL. Performed By: #### U TOX2 ####[facility] [id number] [place] [address] [facility] Urinalysis complete panel (U )on 06-16-2023 Bacteria LM.HPF (Urine sed) [#/Area] Rare Abnormal None Seen [facility] Comment on above: Order Comment: Speci men Type: URINE SPECIMEN Ordering Facility: [facility] Address: [address] [place] [address] Performed By: #### 2 4356-8 #### [facility] CLIA [id number] [address] [phone] [facility] Bilirubin Ql (U) Negative Normal Negative [facility] Comment on above: Order Comment: Speci men Type: URINE SPECIMEN Ordering Facility: [facility] Address: [address] [place] [address] Performed By: #### 2 4356-8 #### [facility] CLIA [id number] [address] [place] [address] [facility] Clarity (Unsp spec) Slightly Cloudy Abnormal Clear [facility] Comment on above: Order Comment: Speci men Type: URINE SPECIMEN Ordering Facility: [facility] Address: [address] [place] [address] Performed By: #### 2 4356-8 #### [facility] CLIA [id number] [address] [place] [address] [facility] Color (U) Dark Yellow Abnormal Yellow [facility] Comment on above: Order Comment: Speci men Type: URINE SPECIMEN Ordering Facility: [facility] Address: [address] [place] [address] Performed By: #### 2 4356-8 #### [facility] CLIA [id number] [address] [place] [address] [place] Epithelial cells LM.HPF (Urine sed) [#/Area] Few Normal [facility] Comment on above: Order Comment: Speci men Type: URINE SPECIMEN Ordering Facility: [facility] Address: [address] [place] [address] Performed By: #### 2 4356-8 #### [facility] CLIA [id number] [address] [place] [address] [facility] Glucose Test strip (U) [Mass/Vol] Trace Abnormal Negative [facility] Comment on above: Order Comment: Speci men Type: URINE SPECIMEN Ordering Facility: [facility] Address: [address] [place] [address] Performed By: #### 2 4356-8 #### [facility] CLIA [id number] [address] [place] [address] [place] Hemoglobin Ql (U) 3+ Abnormal Negative [facility] Comment on above: Order Comment: Speci men Type: URINE SPECIMEN Ordering Facility: [facility] Address: [address] [place] [address] Performed By: #### 2 4356-8 #### [facility] CLIA [id number] [address] [place] [address] [place] Hyaline casts (Urine sed) [#/Area] 1-3 /LPF Abnormal 0 /LPF [facility] Comment on above: Order Comment: Speci men Type: URINE SPECIMEN Ordering Facility: [facility] Address: [address] [place] [address] Performed By: #### 2 4356-8 #### [facility] CLIA [id number] [address] [place] [address] [place] Ketones Ql (U) 1+ Abnormal Negative [facility] Comment on above: Order Comment: Speci men Type: URINE SPECIMEN Ordering Facility: [facility] Address: [address] [place] [address] Performed By: #### 2 4356-8 #### [facility] CLIA [id number] [address] [place] [address] [place] Leukocyte esterase Test strip Ql (U) Negative Normal Negative [facility] Comment on above: Order Comment: Speci men Type: URINE SPECIMEN Ordering Facility: [facility] Address: [address] [place] [address] Performed By: #### 2 4356-8 #### [facility] CLIA [id number] [address] [place] [address] [place] Nitrite Ql (U) Negative Normal Negative [facility] Comment on above: Order Comment: Speci men Type: URINE SPECIMEN Ordering Facility: [facility] Address: [address] [place] [address] Performed By: #### 2 4356-8 #### [facility] CLIA [id number] [address] [place] [address] [place] pH (U) 5.5 [pH] Normal 5.0-8.0 [facility] Comment on above: Order Comment: Speci men Type: URINE SPECIMEN Ordering Facility: [facility] Address: [address] [place] [address] Performed By: #### 2 4356-8 #### [facility] CLIA [id number] [address] [place], [place] [id number] [facility] Protein (U) [Mass/Vol] 2+ Abnormal Negative [facility] Comment on above: Order Comment: Speci men Type: URINE SPECIMEN Ordering Facility: [facility] Address: [address] [place] [address] Performed By: #### 2 4356-8 #### [facility] CLIA [id number] [address] [place] [address] [place] RBC LM.HPF (Urine sed) [#/Area] 3-5 /HPF Abnormal 0-3 /HPF [facility] Comment on above: Order Comment: Speci men Type: URINE SPECIMEN Ordering Facility: [facility] Address: [address] [place] [address] Performed By: #### 2 4356-8 #### [facility] CLIA [id number] [address] [place] [address] [place] Specific gravity (U) [Rel density] >=1.030 High 1.005-1.030 [facility] Comment on above: Order Comment: Speci men Type: URINE SPECIMEN Ordering Facility: [facility] Address: [address] [place] [address] Performed By: #### 2 4356-8 #### [facility] CLIA [id number] [address] [place] [address] [facility] Urobilinogen Ql (U) 0.2 EU/dL Normal 0.2-1.0 EU/dL [facility] Comment on above: Order Comment: Speci men Type: URINE SPECIMEN Ordering Facility: [facility] Address: [address] [place] [address] Performed By: #### 2 4356-8 #### [facility] CLIA [id number] [address] [place] [address] [place] WBC LM.HPF (Urine sed) [#/Area] 6-10 /HPF Abnormal 0-5 /HPF [facility] Comment on above: Order Comment: Speci men Type: URINE SPECIMEN Ordering Facility: [facility] Address: [facility] [address] [place] [id number] Performed By: #### 2 4356-8 #### [facility] CLIA [id number] [address] [place] [address] [facility] [place] XR CHEST 1V FRONTALon 2023 XR CHEST 1V FRONTAL * * *Final Report* * * DATE OF EXAM: Jun 16 2023 9:42AM LDX 5290 - XR CHEST 1V FRONTAL / PROCEDURE REASON: Cough * * * * Physician Interpretation * * * * EXAMINATION: CHEST RADIOGRAPH (SINGLE VIEW AP OR PA) CLINICAL HISTORY: Cough , unresponsive MQ: XC1_5 Comparison: None RESULT: Lines, tubes, and devices: None. Lungs and pleura: No consolidation. No lung mass. No pleural effusion. Cardiomediastinal silhouette: Normal cardiomediastinal silhouette. Mild nonspecific prominence of pulmonary vasculature markings. Correlation with clinical symptoms Other: . IMPRESSION: Mild nonspecific prominence of pulmonary vasculature markings as seen on AP semiupright portable exam. Correlation with clinical symptoms Coordinator Hotels: SURENDRA Transcribe Date/Time: Jun 16 2023 10:02A Dictated by : KIM RODRIGUEZ MD This examination was interpreted and the report reviewed and electronically signed by: KIM RODRIGUEZ MD on Jun 16 2023 10:03AM EST [id number] Normal [facility] CBC panel Auto (Bld)on 07-10 Erythrocyte distribution width (RBC) [Ratio] 14.1 % 11.5 - 14.5 % [facility] Hematocrit (Bld) [Volume fraction] 44.1 % 35.0 - 47.0 % [facility] Hemoglobin (Bld) [Mass/Vol] 14.7 g/dL 11.7 - 16.0 g/dL [facility] Interpretation and review of laboratory results Normal [facility] MCH (RBC) [Entitic mass] 31.1 pg 26.0 - 34.0 pg [facility] MCHC (RBC) [Mass/Vol] 33.3 % 32.0 - 36.0 % [facility] MCV (RBC) [Entitic vol] 93.3 fL 80.0 - 98.0 fL [facility] Platelet mean volume (Bld) [Entitic vol] 8.7 fL 7.4 - 12.4 fL [facility] Platelets (Bld) [#/Vol] 278 10*3/uL 140 - 440 10*3/uL [facility] RBC (Bld) [#/Vol] 4.73 10*6/uL 3.8 - 5.20 10*6/uL [facility] WBC (Bld) [#/Vol] 10.0 10*3/uL 3.6 - 10.7 10*3/uL [facility] Laboratory - Chemistry and C hemistry - challengeOrdered By: Margarita Grewal on 07-10-2022 Beta HCG ( test) Ql Negative Negative [facility] Comment on above: Please note: Very di lute urine specimens, as indicated by a low specific gravity, may not contain claim representative levels of hCG. If is still suspected, a first morning urine specimen should be collected 48 hours later and tested. Beta HCG ( test) Ql (U) is the most common reason for HCG in urine, although choriocarcinoma, hydatidiform mole, and certain nontrophoblastic malignancies also result in detectable urinary HCG levels. Sensitivity = 20mIU/mL. [facility] No Panel InformationOrdered By: Margarita Grewal on 07-10-2022 [facility] Basophil percentageOrdered B y: Dr. Sauceda on 07-03-2022 Basophil percentage TNP [facility] Comment on above: Test not performed No Panel InformationOrdered By: Dr. Sauceda on 07-03-2022 Addendum Document Comment . [facility] Comment on above: The quantitative ran ge of this assay is 15 IU/mL to 100million IU/mL.Performed at: [facility] Lab[address] [id number] Director: Lenin Christensen MD, Phone: [phone] Serum or plasma hepatitis C virus RNA measurement by probe and target amplification mOrdered By: Dr. Sauceda on 07-03-2022 HCV RNA CHANDANA+probe Qn Not detected . [facility] HCG ( test) Ql (U)o n 06-28-2022 Beta HCG ( test) Ql (U) . [facility] NEGATIVE QC Pass [employer] POSITIVE QC Pass [employer] Preg Test, Ur Negative Negative [facility] [employer] Absolute lymphocyte countOrd ered By: Konrad Hampton on 06-20-2022 Lymphocytes Auto (Unsp spec) [#/Vol] 3.12 10*3/uL 0.83-4.51 [facility] Basophil percentageOrdered B y: Konrad Hampton on 06-20-2022 Basophil percentage TNP [facility] Comment on above: Test not performed Basophils/100 WBC (Bld) 0.5 % 0-1 [facility] Bilirubin [Mass/Vol] 0.20 mg/dL 0.20-1.00 [facility] Comment on above: For patients on eltr ombopag therapy, use of Dimension [place] TBIL is not recommended. Chloride [Moles/Vol] 110 mmol/L 98-107 [facility] Eosinophils/100 WBC (Bld) 3.0 % 0-5 [facility] Glucose [Mass/Vol] 98 mg/dL 74-106 [facility] Neutrophils (Bld) [#/Vol] 4.9 10*3/uL 2.0-7.7 [facility] Neutrophils/100 WBC (Bld) 53.0 % 47-70 [facility] Potassium [Moles/Vol] 4.0 mmol/L 3.5-5.1 [facility] Protein [Mass/Vol] 7.7 g/dL 6.4-8.2 [facility] Sodium [Moles/Vol] 140 mmol/L 136-145 [facility] WBC (Bld) [#/Vol] 9.2 10*3/uL 4.4-11.0 [facility] Blood erythrocytes count (nu mber/volume)Ordered By: Konrad Hampton on 06-20-2022 RBC (Bld) [#/Vol] 4.51 10*6/uL 4.2-5.4 [facility] Blood hemoglobin measurement (mass/volume)Ordered By: Konrad Hampton on 06-20-2022 Hemoglobin (Bld) [Mass/Vol] 14.0 g/dL 12.0-15.0 [facility] Blood lymphocytes/100 leukoc ytesOrdered By: Konrad Hampton on 06-20-2022 Lymphocytes/100 WBC (Bld) 33.8 % 19-41 [facility] Blood monocytes/100 leukocyt esOrdered By: Konrad Hampton on 06-20-2022 Monocytes/100 WBC (Bld) 9.0 % 0-10 [facility] Blood platelet mean volumeOr dered By: Konrad Hampton on 06-20-2022 Platelet mean volume (Bld) [Entitic vol] 11.3 fL 6.2-12.0 [facility] Determination of erythrocyte mean corpuscular volume (MCV)Ordered By: Konrad Hampton on 06-20-2022 MCV (RBC) [Entitic vol] 96.0 fL 81-99 [facility] Hematocrit Auto (Bld) [Volum e fraction]Ordered By: Konrad Hampton on 06-20-2022 Hematocrit (Bld) [Volume fraction] 43.3 % 37-47 [facility] Laboratory - Chemistry and C hemistry - challengeOrdered By: Konrad Hampton on 06-20-2022 ALP [Catalytic activity/Vol] 77 U/L 45-117 [facility] ALT [Catalytic activity/Vol] 36 U/L 13-56 [facility] CO2 [Moles/Vol] 25.0 mmol/L 21.0-32.0 [facility] Globulin (S) [Mass/Vol] 4.0 g/dL 2.2-4.2 [facility] Urea nitrogen/Creatinine [Mass ratio] 19.5 mg/mg 10-20 [facility] Laboratory - Hematology and Cell countsOrdered By: Konrad Hampton on 06-20-2022 Erythrocyte distribution width (RBC) [Entitic vol] 47.5 fL 35.1-43.9 [facility] Erythrocyte distribution width (RBC) [Ratio] 13.3 % 11.6-14.6 [facility] Immature granulocytes/100 WBC (Bld) 0.700 % 0.0-0.9 [facility] Comment on above: IG% - Immature Granu locytes (promyelocytes, myelocytes and metamyelocytes) > 1% indicates that a LEFT SHIFT is Present. MCH (RBC) [Entitic mass] 31.0 pg 27.0-32.0 [facility] Nucleated RBC/100 WBC (Bld) [Ratio] 0 % 0-5 [facility] Laboratory - Miscellaneous t estsOrdered By: Konrad Hampton on 06-20-2022 Service comment (Unsp spec) [Interp] Comment . [facility] Comment on above: This test was develo ped and its performance characteristicsdetermined by [employer]. It has not been cleared or approvedby the U.S. Food and Drug Administration.The FDA has determined that such clearance or approval isnot necessary. This test is used for clinical purposes. Itshould not be regarded as investigational or for research.Performed at: [address] [id number] Director: Lenin Christensen MD, Phone: [phone] MCHC Auto (RBC) [Mass/Vol]Or dered By: Konrad Hampton on 06-20-2022 MCHC (RBC) [Mass/Vol] 32.3 g/dL 32-36 [facility] No Panel InformationOrdered By: Konrad Hampton on 06-20-2022 Addendum Document Comment . [facility] Comment on above: The quantitative ran ge of this assay is 15 IU/mL to 100million IU/mL. Estimated GFR (MDRD) Amer 114 mL/min >60 [facility] Comment on above: GFR Calc Estimated GFR (MDRD) Non-Af Amer 94 mL/min >60 [facility] Comment on above: Non- GFR Calc Hepatitis C Genotype TNP [facility] Comment on above: Test not performedTe st not performed. Unable to provide an HCV genotype forthis sample. The most common reason an HCV genotype cannotbe determined is due to a viral load of <1,000 IU/mL, ormore rarely, the presence of an untypable HCV genotype. Platelets bldOrdered By: Severo Hampton on 06-20-2022 Platelets (Bld) [#/Vol] 300 10*3/uL 150-450 [facility] Serum or plasma albumin jax urement (mass/volume)Ordered By: Konrad Hampton on 06-20-2022 Albumin [Mass/Vol] 3.7 g/dL 3.2-5.0 [facility] Serum or plasma albumin/glob ulin mass ratioOrdered By: Konrad Hampton on 06-20-2022 Albumin/Globulin [Mass ratio] 0.9 {ratio} 0.9-2.4 [facility] Serum or plasma calcium jax urement (mass/volume)Ordered By: Konrad Hampton on 06-20-2022 Calcium [Mass/Vol] 9.3 mg/dL 8.5-10.1 [facility] Serum or plasma creatinine m easurement (mass/volume)Ordered By: Konrad Hampton on 06-20-2022 Creatinine [Mass/Vol] 0.72 mg/dL 0.55-1.02 [facility] Comment on above: The validity of the calculated GFR & GFRAA in patients over 70 years has not been determined. Clinical correlation is essential. Serum or plasma hepatitis C virus RNA measurement by probe and target amplification mOrdered By: Konrad Hampton on 06-20-2022 HCV RNA CHANDANA+probe Qn Not detected . [facility] Serum or plasma urea nitroge n measurement (mass/volume)Ordered By: Konrad Hampton on 06-20-2022 Urea nitrogen [Mass/Vol] 14 mg/dL 7-18 [facility] Thin prep Papanicolaou smear with manual screeningOrdered By: Konrad Hampton on 06-20-2022 Thin prep Papanicolaou smear with manual screening 34 U/L 15-37 [facility] Thin prep Papanicolaou smear with manual screening 5 5-15 [facility] HCG ( test) Ql (U)o n 06-07-2022 Beta HCG ( test) Ql (U) . [facility] NEGATIVE QC Pass Newsy POSITIVE QC Pass Newsy Preg Test, Ur Negative Negative [employer] US Pelvis transvaginalon Simple appearing left ovarian cyst with possibel irregular borders. Endometrium is echogenic, uniform and thin measuring 1.37mm No free fluid or adnexal masses seen. Follow up as clinically indicated. Patient is scheduled to see Dr. Worley following ultrasound 06/07/2022. *Ultrasound cannot detect all pelvic or SOAPING MACHINE BACK TENDER abnormalities and normal findings cannot guarantee the absence of a problem.* [email or web address] Gynecological Report (Signed Final 05/07/2022 02:00 pm) PATIENT INFO: ID #: [id number] : [birth year] (42 yrs)(F) Name: LISA CHAUDHRY Visit Date: 05/06/2022 09:01 am PERFORMED BY: Attending: Nathan Brooks MD Performed By: Kerri Soto RDMS Referred By: SHANTE WORLEY MD Location: [facility] FIRE MANAGEMENT TECHNICIAN Carlyn Visit Type: [facility] FIRE MANAGEMENT TECHNICIAN SERVICE(S) PROVIDED: Manager Help[employer] Transvaginal [id number] INDICATIONS: Abnormal uterine and vaginal bleeding, N93.9 unspecified LMP January 2022 TV SOAPING MACHINE BACK TENDER ultrasound TECHNIQUE/SCAN QUALITY: Technique: Transvaginal Approach COMPARISON: None HISTORY: Age: 42 Menses: Irregular January 2022 HX COMMENTS: Non latex cover used. UTERUS: Uterus: Heterogeneous Position: Anteverted Size (cm) L: 7.27 W: 5.34 H: 3.43 ENDOMETRIUM: Endometrium: Normal Thickness(mm): 1.37 CERVIX: Normal appearance CUL-DE-SAC: No free fluid was visualized RIGHT OVARY: Status: Suboptimal views Size (cm) L: 2.29 W: 0.89 H: 1.7 Vol (ml): 1.81 LEFT OVARY: Status: Visualized Size (cm) L: 3.08 W: 2.88 H: 1.96 Vol (ml): 9.1 Type: Simple cyst Size (cm) L: 2.79 W: 2.06 H: 1.65 Vol (ml): 4.97 RECOMMENDATIONS: Cyst appears banign - hollis consider repeat imaging in 4-6 weeks Nathan Brooks MD Electronically Signed Final Report 05/07/2022 02:00 pm [facility] Nathan Brooks MD - 05/07/2022 Gynecological Report (Signed Final 05/07/2022 02:00 pm) PATIENT INFO: ID #: [id number] : [birth year] (42 yrs)(F) Name: LISA CHAUDHRY Visit Date: 05/06/2022 09:01 am PERFORMED BY: Attending: Nathan Brooks MD Performed By: Kerri Soto RDMS Referred By: SHANTE WORLEY MD Location: [facility]RE MANAGEMENT TECHNICIAN [place] Visit Type: [facility] FIRE MANAGEMENT TECHNICIAN SERVICE(S) PROVIDED: Manager Helpdesk Transvaginal [id number] INDICATIONS: Abnormal uterine and vaginal bleeding, N93.9 unspecified LMP January 2022 TV SOAPING MACHINE BACK TENDER ultrasound TECHNIQUE/SCAN QUALITY: Technique: Transvaginal Approach COMPARISON: None HISTORY: Age: 42 Menses: Irregular January 2022 HX COMMENTS: Non latex cover used. UTERUS: Uterus: Heterogeneous Position: Anteverted Size (cm) L: 7.27 W: 5.34 H: 3.43 ENDOMETRIUM: Endometrium: Normal Thickness(mm): 1.37 CERVIX: Normal appearance CUL-DE-SAC: No free fluid was visualized RIGHT OVARY: Status: Suboptimal views Size (cm) L: 2.29 W: 0.89 H: 1.7 Vol (ml): 1.81 LEFT OVARY: Status: Visualized Size (cm) L: 3.08 W: 2.88 H: 1.96 Vol (ml): 9.1 Type: Simple cyst Size (cm) L: 2.79 W: 2.06 H: 1.65 Vol (ml): 4.97 RECOMMENDATIONS: Cyst appears banign - coulc consider repeat imaging in 4-6 weeks Nathan Brooks MD Electronically Signed Final Report 05/07/2022 02:00 pm IMPRESSION: Simple appearing left ovarian cyst with possibel irregular borders. Endometrium is echogenic, uniform and thin measuring 1.37mm No free fluid or adnexal masses seen. Follow up as clinically indicated. Patient is scheduled to see Dr. Worley following ultrasound 06/07/2022. *Ultrasound cannot detect all pelvic or SOAPING MACHINE BACK TENDER abnormalities and normal findings cannot guarantee the absence of a problem.* [facility] US Pelvis transvaginalOrdere d By: Nathan Brooks on 05-07-2022 [facility] Work Phone: US Pelvis transvaginalon Radiology Study observation (narrative) Newsy DBT Breast - bilateral scree ningon 05-02-2022 No mammographic evid ence of malignancy. ASSESSMENT: Category 1 Negative RECOMMENDATION: Routine screening mammogram in 1 year. Bilateral Report Dictated on Electronically Signed By: Faith Deluca Electronically Signed Date/Time: 05/02/2022 3:01 PM EST [employer] Patient Name: LISA CHAUDHRY Exam Date/Time: 05/02/2022 11:30 Procedure: BI MAMMOGRAM SCREENING TOMOSYNTHESIS BILATERAL Ordering Provider: WORLEY EILEEN Reason For Exam: Image views: 2D Bilateral CC and MLO views were acquired. 3D Bilateral CC and MLO views were acquired. Images were reviewed with CAD. Markings on images: BB's = Nipples; skin lesions Open [place] = Palpable Line = Scar COMPARISON: 01/21/2019 TISSUE DENSITY: BIRADS C - The breast tissue is heterogeneously dense, which could obscure underlying abnormalities. FINDINGS: No suspicious masses, architectural distortions or suspiciously clustered microcalcifications are identified. There is no evidence of skin thickening or nipple retraction. There are no significant changes when compared with prior studies. [facility] Faith Deluca MD - 05/02/2022 Patient Name: LISA CHAUDHRY Exam Date/Time: 05/02/2022 11:30 Procedure: BI MAMMOGRAM SCREENING TOMOSYNTHESIS BILATERAL Ordering Provider: WORLEY EILEEN Reason For Exam: Image views: 2D Bilateral CC and MLO views were acquired. 3D Bilateral CC and MLO views were acquired. Images were reviewed with CAD. Markings on images: BB's = Nipples; skin lesions Open [place] = Palpable Line = Scar COMPARISON: 01/21/2019 TISSUE DENSITY: BIRADS C - The breast tissue is heterogeneously dense, which could obscure underlying abnormalities. FINDINGS: No suspicious masses, architectural distortions or suspiciously clustered microcalcifications are identified. There is no evidence of skin thickening or nipple retraction. There are no significant changes when compared with prior studies. IMPRESSION: No mammographic evidence of malignancy. ASSESSMENT: Category 1 Negative RECOMMENDATION: Routine screening mammogram in 1 year. Bilateral Report Dictated on Electronically Signed By: Faith Deluca Electronically Signed Date/Time: 05/02/2022 3:01 PM EST [facility] Radiology Study observation (narrative) Newsy DBT Breast - bilateral scree ningOrdered By: Faith Deluca on 05-02-2022 [facility] Work Phone: IO Rapid Strepon 12-19-2021 S. pyogenes Ag Ql (Throat) Negative [facility] Work Phone: Office Visit (Urgent Care)on 12-19-2021 Follow-up visit Diagnoses/Problems Assessed Acute frontal sinusitis (461.1) (J01.10) 2+ pitting edema (782.3) (R60.9) Orders Acute frontal sinusitis Start: Cefdinir 300 MG Oral Capsule; TAKE 1 CAPSULE EVERY 12 HOURS DAILY Rx By: Darrell Mcgowan; Dispense: 10 Days ; #:20 Capsule; Refill: 0;For: Acute frontal sinusitis; LA = N; Sent To: [facility] Sore throat IO Rapid Strep; Status:Resulted - Requires Verification,Retrospective Authorization; Done: [id number] 07:45PM Performed:In Office; Due:19Mar2022; Last Updated By:Chinyere Ramos; 12/19/2021 7:45:16 PM;Ordered; For:Sore throat; Ordered By:Darrell Mcgowan; Patient Discussion/Summary Sinusitis. We will treat with Omnicef. Pitting edema. Follow-up with your doctor soon as possible. Wbuy-kmu-nqqxnmy medications as needed. Provider Impressions Sinusitis. We will treat with Omnicef. Pitting edema. Follow-up with your doctor soon as possible. Jjvq-hxf-yrnbswa medications as needed. Chief Complaint Chief Complaints Sore Throat History of Present Illness Patient is a 41-year-old female with chief complaint of sore throat pain and ear pain for 1 week. Patient denies any known strep or mono exposure. Patient denies any history of chronic otitis media. Patient denies any chills, but has a fever. Patient denies any eye pain or eye discharge. Patient denies any coughs, wheezing, chest pain or shortness of breath. Patient states partial relief with gbks-kef-nztkcnp medications. Patient reports that she has had swelling in her bilateral feet for two weeks. Patient denies any trauma recent or remote. Patient reports no improvement despite the use of elevation and compression stockings. Review of Systems Constitutional: as noted in HPI. Eyes: as noted in HPI. ENT: as noted in HPI. Cardiovascular: as noted in HPI. Respiratory: as noted in HPI. Active Problems Problems Allergic rhinitis (477.9) (J30.9) Cocaine abuse (305.60) (F14.10) Depression (311) (F32.A) Dysuria (788.1) (R30.0) Hepatitis B antibody positive (795.79) (R76.8) Hepatitis C, chronic (070.54) (B18.2) IBS (irritable bowel syndrome) (564.1) (K58.9) IV drug user (305.90) (F19.90) Migraine headache without aura (346.10) (G43.009) Mild intermittent asthma without complication (493.90) (J45.20) Nausea and vomiting (787.01) (R11.2) Opioid abuse (305.50) (F11.10) Renal lesion (593.9) (N28.9) Sore throat (462) (J02.9) Suspected COVID-19 virus infection (V01.79) (Z20.822) Tobacco use (305.1) (Z72.0) Viral hepatitis C without hepatic coma (070.70) (B19.20) Past Medical History Problems History of Cellulitis of wrist (682.4) (L03.119) Resolved Date: 30 Jan 2021 History of Contact dermatitis due to poison felipa (692.6) (L23.7) Resolved Date: 30 Jan 2021 History of Endometriosis (617.9) (N80.9) History of Furuncle of axilla (680.3) (L02.429) Resolved Date: 30 Jan 2021 History of abdominal pain (V13.89) (Z87.898) Resolved Date: 30 Jan 2021 History of acute bronchitis (V12.69) (Z87.09) Resolved Date: 30 Jan 2021 History of acute otitis externa (V12.49) (Z86.69) Resolved Date: 30 Jan 2021 History of asthma (V12.69) (Z87.09) Resolved Date: 30 Jan 2021 History of drug dependence (304.93) (F19.21) History of gastroenteritis (V12.79) (Z87.19) Resolved Date: 30 Jan 2021 History of hepatitis (V12.09) (Z86.19) Resolved Date: 30 Jan 2021 History of lymphadenopathy (V13.89) (Z87.898) Resolved Date: 30 Jan 2021 History of sinusitis (V12.69) (Z87.09) Resolved Date: 30 Jan 2021 History of sore throat (V12.69) (Z87.09) Resolved Date: 30 Jan 2021 History of Opioid type dependence in remission (304.03) (F11.21) Resolved Date: 30 Jan 2021 History of Other noninfective acute otitis externa of right ear (380.22) (H60.591) Resolved Date: 30 Jan 2021 History of Pain in both lower extremities (729.5) (M79.604,M79.605) Resolved Date: 30 Jan 2021 Personal history of asthma (V12.69) (Z87.09) History of Rash (782.1) (R21) Resolved Date: 30 Jan 2021 History of Sinobronchitis (473.9,490) (J32.9,J40) Resolved Date: 06 Mar 2018 History of Sinobronchitis (473.9,490) (J32.9,J40) Resolved Date: 30 Jan 2021 History of Strep throat (034.0) (J02.0) Resolved Date: 30 Jan 2021 Surgical History Problems History of Dilation And Curettage History of Pap smear for cervical cancer screening (V76.2) (Z12.4) Jan 2011 History of Sinus Surgery History of Tonsillectomy Family History Mother Family history of drug dependence (V17.0) (Z81.3) Father Family history of drug dependence (V17.0) (Z81.3) Family history of hepatic cirrhosis (V18.59) (Z83.79) Sister Family history of drug dependence (V17.0) (Z81.3) Family History Family history of No Significant Family History Social History Problems Denied: History of Alcohol Use (History) glass of wine X3 per week Caffeine Use 2 cups per day Current every day smoker (305.1) (F17.200) 1/2 ppd x 10yrs History (more content not included)... Normal [facility] PHQ-2 [facility] 12-19-2021 Adult depression screening assessment No [facility] Work Phone: Fall risk assessment a) No falls within the last year [facility] Work Phone: Office Visit (Primary Care F orms)on 03-08-2021 Follow-up visit Diagnosis/Problems Assessed Suspected COVID-19 virus infection (V01.79) (Z20.822) 3-4 days of nausea, vomiting, rhinorrhea, myalgias, fatigue, fever (resolved) with recent confirmed exposure to COVID-19. We will obtain COVID-19 swab and follow up with results. Recommend nasal steroid and Tylenol/ibuprofen for pain/fever. Medication dosing and side effects reviewed. Discussed hand hygiene, oral hydration, and quarantine. Return precautions and symptoms that should prompt urgent/emergent evaluation discussed. This visit was completed virtually due to the restrictions of the COVID-19 pandemic. All issues as below were discussed and addressed, but no physical exam was performed. If it was felt that the patient should be evaluated in clinic, then they were directed there. The patient verbally consented to visit. Spent 11 minutes with patient rdmg-cc-ofdl via virtual visit. Nausea and vomiting (787.01) (R11.2) COVID-19 swab as above. Will provide rx for Zofran. Medication dosing and side effects reviewed. Dysuria (788.1) (R30.0) Will treat empirically for UTI with antibiotics as below at this time given concomitant COVID-19 symptoms necessitating quarantine. Medication dosing and side effects reviewed. Return precautions and symptoms that should prompt urgent/emergent evaluation discussed. Orders Dysuria Start: Sulfamethoxazole-Trimethopr im 800-160 MG Oral Tablet; TAKE 1 TABLET TWICE DAILY UNTIL FINISHED Rx By: Herlinda Hoyt; Dispense: 3 Days ; #:6 Tablet; Refill: 0;For: Dysuria; LA = N; Verified Transmission to [facility]; Last Updated By: [employer]; 03/08/2021 4:15:43 PM IO UA (automated w/o microscopy); Status:Canceled; Perform:In Office; Due:[id number];Ordered; For:Dysuria; Ordered By:Herlinda Hoyt; Mild intermittent asthma without complication Start: Nebulizer; USE DIRECTED Rx By: Herlinda Hoyt; Dispense: 0 Days ; #:1 Each; Refill: 0;For: Mild intermittent asthma without complication; LA = N; Verified Transmission to [facility]; Last Updated By: Scimetrika; 03/08/2021 4:46:07 PM Nausea and vomiting Start: Ondansetron 4 MG Oral Tablet Disintegrating; TAKE 1 TABLET 4 times daily PRN nausea Rx By: Herlinda Hoyt; Dispense: 0 Days ; #:20 Tablet; Refill: 0;For: Nausea and vomiting; LA = N; Verified Transmission to [facility]; Last Updated By: Scimetrika; 03/08/2021 4:15:52 PM Suspected COVID-19 virus infection Coronavirus 2019 RNA by PCR, Symptomatic; Status:Active; Requested for:08Mar2021; Perform:Lab Services - Lab To Draw (Non-Blood Test); Due:[id number];Ordered; For:Suspected COVID-19 virus infection; Ordered By:Herlinda Hoyt; ? : No RESIDENT IN CONGREGATE CARE SETTING? : No ICU? : No HOSPITALIZED (OR PLANNED TO BE ADMITTED)? : No EMPLOYED IN HEALTHCARE? : No FIRST COVID NASAL SWAB TEST? : Yes Symptom 2 : Cough Symptom 1 : Fever DATE OF SYMPTOM ONSET? : [id number] IS THE PATIENT SYMPTOMATIC DEFINED BY THE CDC (FEVER>100, NEW WORSENING COUGH OR SHORTNESS OF BREATH, NEW LOSS OF TASTE OR SMELL, SORE THROAT, DIARRHEA, BODY ACHES/MALAISE, HEADACHE, NAUSEA/VOMITING, OR RUNNY NOSE/CONGESTION)? : Yes Chief Complaint An interactive audio and video telecommunication system which permits real time communications between the patient (at the originating site) and provider (at the distant site) was utilized to provide this telehealth service. Verbal consent was requested and obtained from LISA CHAUDHRY on this date, 03/08/2021 03:20 PM , for a telehealth visit. hot and cold chills, nausea, temp got to 101.2, runny nose, body aches, headache for couple days. Had both covid shots. Needs a nebulizer machine script. Just found out was in contact with someone who tested positive for covid today. History of Present IllnessThis is a 40yo female who presents today via virtual visit with chief complaint of nausea and vomiting. States that this episode started a few days ago with nausea, fever yesterday (Tmax 101.2), chills, runny nose, nasal congestion, myalgias, fatigue, CALVIN, dry cough, generalized abd pain. Has had multiple episodes of NBNB emesis starting this morning. She also notes dysuria, urinary frequency, urgency/hesitancy for the past couple days. Denies ear pain, SOB, CP, hematuria. Afebrile today. Patient notes recent exposure to a friend who tested + for COVID-19. Review of Systems Constitutional: feeling tired and chills, but no fever and as noted in HPI. Eyes: no eye redness and no eye pain. ENT: nose drainage and nose congestion, but no ear pain, no swollen lymph nodes and no sore throat. Cardiovascular: no chest pain, no palpitations and no lower extremity edema. Respiratory: no cough, no dyspnea with exertion and no dyspnea at rest. Gastrointestinal: abdominal pain, nausea and vomiting, but no constipation, no diarrhea and no blood in stools. Genitourinary: increased urine frequency, dysuria, but no (more content not included)... Normal [facility] 01-30-2021 Follow-up visit Diagnoses/Problems History of asthma (V12.69) (Z87.09) IBS (irritable bowel syndrome) (564.1) (K58.9) Viral hepatitis C without hepatic coma (070.70) (B19.20) Mild intermittent asthma without complication (493.90) (J45.20) Depression (311) (F32.A) Migraine headache without aura (346.10) (G43.009) Orders Allergic rhinitis Renew: Montelukast Sodium 10 MG Oral Tablet; TAKE 1 TABLET AT BEDTIME IBS (irritable bowel syndrome) Renew: Linzess 145 MCG Oral Capsule; Take one tablet daily Migraine headache without aura Changed: From SUMAtriptan Succinate 50 MG Oral Tablet TAKE DIRECTED To SUMAtriptan Succinate 50 MG Oral Tablet (Imitrex) TAKE 1 TABLET FOR MIGRAINE RELIEF. MAY REPEAT EVERY 2 HOURS. MAX 200MG/DAY Renew: Fluticasone Propionate 50 MCG/ACT Nasal Suspension; USE 2 SPRAYS IN EACH NOSTRIL ONCE DAILY Mild intermittent asthma without complication Renew: Albuterol Sulfate (2.5 MG/3ML) 0.083% Inhalation Nebulization Solution; USE 1 UNIT DOSE EVERY 4-6 HOURS NEEDED FOR WHEEZING Renew: Ventolin HFA 108 (90 Base) MCG/ACT Inhalation Aerosol Solution (Albuterol Sulfate HFA); INHALE 1 TO 2 PUFFS EVERY 4 TO 6 HOURS NEEDED PMH: Contact dermatitis due to poison felipa Renew: Cetirizine HCl - 10 MG Oral Tablet; TAKE ONE TABLET BY MOUTH ONE TIME DAILY PMH: History of asthma Start: Nebulizer/Tubing/Mouthpiece KIT; USE DIRECTED Viral hepatitis C without hepatic coma Complete Blood Count; Status:Active; Requested for:30Jan2021; HCV RNA By PCR [Viral Load]; Status:Active; Requested for:30Jan2021; Hepatic Function Panel; Status:Active; Requested for:30Jan2021; PT/INR; Status:Active; Requested for:30Jan2021; Patient Discussion/Summary I ordered labs to further evaluate her hepatitis and she states she does not want to do those right now until she is in remission. Her medications were refilled for asthma medicine and migraine. Chief Complaint Pt presents to establish new PCP; previous pt of Dr. Nicki Nguyen, [facility]; Asthma History of Present IllnessShe presents today to establish as a new patient. She has a history of asthma and allergies. She has not been seen by her primary care in 3 years. The medication she was on were effective. So we will refill those. She is also has a history of IV drug use and hepatitis C. She states that they were monitoring her levels and she did not require treatment. She states that she has not used drugs and a month. However she has multiple inflamed vessels on her arms and a prominent right radial area vein with bruising and fresh pinpoint punctures. She states that recently she was on antibiotics for cellulitis of those vessels. She does see a psychiatrist at a treatment center and is prescribed medications there. Review of Systems General: Negative except HPI Cardiovascular: Negative except HPI Respiratory: Negative except HPI Gastrointestinal: Negative except HPI : Negative except HPI Neurological: Negative except HPI Active Problems Allergic rhinitis (477.9) (J30.9) Cocaine abuse (305.60) (F14.10) Depression (311) (F32.A) Hepatitis B antibody positive (795.79) (R76.8) Hepatitis C, chronic (070.54) (B18.2) Migraine headache without aura (346.10) (G43.009) Mild intermittent asthma without complication (493.90) (J45.20) Opioid abuse (305.50) (F11.10) Renal lesion (593.9) (N28.9) Tobacco use (305.1) (Z72.0) Viral hepatitis C without hepatic coma (070.70) (B19.20) Past Medical History History of Acute frontal sinusitis (461.1) (J01.10) History of Cellulitis of wrist (682.4) (L03.119) History of Contact dermatitis due to poison felipa (692.6) (L23.7) History of Endometriosis (617.9) (N80.9) History of Furuncle of axilla (680.3) (L02.429) History of abdominal pain (V13.89) (Z87.898) History of acute bronchitis (V12.69) (Z87.09) History of acute otitis externa (V12.49) (Z86.69) History of asthma (V12.69) (Z87.09) Resolved Date: 30 Jan 2021 History of drug dependence (304.93) (F19.21) History of gastroenteritis (V12.79) (Z87.19) History of hepatitis (V12.09) (Z86.19) History of lymphadenopathy (V13.89) (Z87.898) History of sinusitis (V12.69) (Z87.09) History of sore throat (V12.69) (Z87.09) History of Opioid type dependence in remission (304.03) (F11.21) History of Other noninfective acute otitis externa of right ear (380.22) (H60.591) History of Pain in both lower extremities (729.5) (M79.604,M79.605) Personal history of asthma (V12.69) (Z87.09) History of Rash (782.1) (R21) History of Sinobronchitis (473.9,490) (J32.9,J40) Resolved Date: 06 Mar 2018 History of Sinobronchitis (473.9,490) (J32.9,J40) History of Strep throat (034.0) (J02.0) Surgical History History of Dilation And Curettage History of Pap smear for cervical cancer screening (V76.2) (Z12.4) Jan 2011 History of Sinus Surgery History of Tonsillectomy Family History Family history of drug dependence (V17.0) (Z81.3) Family history of drug depen (more content not included)... Normal [facility] Tobacco Screening.on 021 Fall risk assessment a) No falls within the last year [facility] Work Phone: Tobacco use status [facility]PHS a) Yes [facility] Work Phone: ACETAMINOPHEN LEVELOrdered B y: Pamela Lopez on 08-11-2020 Acetaminophen Level <10.0 10.0 - 3 0.0 ug/mL [facility] Work Phone: Acetaminophenon 08-11-2020 Acetaminophen [Mass/Vol] ug/mL Normal 10.0-30.0 [facility] Comment on above: Performed By: #### S AL33, BMP3, ETOH4, HEMDF, ACET4 #### [facility] [address], [place] Basic Metabolic Panelon 07-21 Calcium [Mass/Vol] 9.7 mg/dL Normal 8.4-10.4 [facility] Comment on above: Performed By: #### S AL33, BMP3, ETOH4, HEMDF, ACET4 #### [place] [address] [address], [place] Glucose [Mass/Vol] 122 mg/dL High 70-100 [facility] Comment on above: Performed By: #### S AL33, BMP3, ETOH4, HEMDF, ACET4 #### [place] [address] [place], [place] Anion gap [Moles/Vol] 9 mmol/L Normal 3-13 [facility] Comment on above: Performed By: #### S AL33, BMP3, ETOH4, HEMDF, ACET4 #### [place] [address], [place] CO2 [Moles/Vol] 24 mmol/L Normal 22-30 [facility] Comment on above: Performed By: #### S AL33, BMP3, ETOH4, HEMDF, ACET4 #### [place] [address] [place], [place] Creatinine [Mass/Vol] 0.46 mg/dL Low 0.52-1.25 [facility] Comment on above: Performed By: #### S AL33, BMP3, ETOH4, HEMDF, ACET4 #### [place] [address] [place], [place] eGFR OTHER > 90.0 Normal >60 [facility] Comment on above: Result Comment: KDIG O guidelines provide the following GFR categories: Stage GFR(ml/min/1.73 m2) Terms G1 >=90 Normal or high G2 60-89 Mildly decreased* G3a 45-59 Mildly to moderately decreased G3b 30-44 Moderately to severely decreased G4 15-29 Severely decreased G5 <15 Kidney failure *Relative to young adult level. In the absence of evidence of kidney damage, neither GFR category G1 nor G2 fulfill the criteria for CKD. The CKD-EPI equation is validated in individuals 18 years of age and older. Currently the best equation for estimating glomerular filtration rate (GFR) from serum creatinine in children is the Bedside Broderick equation. It is less accurate in patients with extremes of muscle mass, restriction of dietary protein, ingestion of creatine, extra-renal metabolism of creatinine, or treatment with medications that affect renal tubular creatinine secretion. Performed By: #### S AL33, BMP3, ETOH4, HEMDF, ACET4 #### [address] [phone] GFR/1.73 sq M.predicted among blacks MDRD (S/P/Bld) [Vol rate/Area] mL/min/{1.73_m2} Normal >60 [facility] Comment on above: Performed By: #### S AL33, BMP3, ETOH4, HEMDF, ACET4 #### [address] [phone] Urea nitrogen [Mass/Vol] 9 mg/dL Normal 7-20 [facility] Comment on above: Performed By: #### S AL33, BMP3, ETOH4, HEMDF, ACET4 #### [address] [address] Potassium [Moles/Vol] 4.0 mmol/L Normal 3.5-5.1 [facility] Comment on above: Performed By: #### S AL33, BMP3, ETOH4, HEMDF, ACET4 #### [address] [place] [address] [place] [address] Chloride [Moles/Vol] 106 mmol/L Normal 98-107 [facility] Comment on above: Performed By: #### S AL33, BMP3, ETOH4, HEMDF, ACET4 #### [address] [address] Sodium [Moles/Vol] 140 mmol/L Normal 135-145 [facility] Comment on above: Performed By: #### S AL33, BMP3, ETOH4, HEMDF, ACET4 #### [employer] [address] [place] [phone] Basic Metabolic PanelOrdered By: Pamela Lopez on 08-11-2020 Anion gap [Moles/Vol] 9 mmol/L 3 - 13 mmol/L [facility] Work Phone: Calcium [Mass/Vol] 9.7 mg/dL 8.4 - 10. 4 mg/dL [facility] Work Phone: Chloride [Moles/Vol] 106 mmol/L 98 - 10 7 mmol/L [facility] Work Phone: CO2 [Moles/Vol] 24 mmol/L 22 - 30 mmol/L [facility] Work Phone: Creatinine [Mass/Vol] 0.46 mg/dL Low 0.52 - 1.25 mg/dL [facility] Work Phone: EGFR IF NonAfrican Argentine >90.0 >60 mL/min [facility] Work Phone: Comment on above: KDIGO guidelines pro vide the following GFR categories: Stage GFR(ml/min/1.73 m2) Terms G1 >=90 Normal or high G2 60-89 Mildly decreased* G3a 45-59 Mildly to moderately decreased G3b 30-44 Moderately to severely decreased G4 15-29 Severely decreased G5 <15 Kidney failure *Relative to young adult level. In the absence of evidence of kidney damage, neither GFR category G1 nor G2 fulfill the criteria for CKD. The CKD-EPI equation is validated in individuals 18 years of age and older. Currently the best equation for estimating glomerular filtration rate (GFR) from serum creatinine in children is the Bedside Broderick equation. It is less accurate in patients with extremes of muscle mass, restriction of dietary protein, ingestion of creatine, extra-renal metabolism of creatinine, or treatment with medications that affect renal tubular creatinine secretion. GFR/1.73 sq M.predicted among blacks MDRD (S/P/Bld) [Vol rate/Area] mL/min/{1.73_m2} >60 mL/min [facility] Work Phone: Glucose [Mass/Vol] 122 mg/dL High 70 - 100 mg/dL [facility] Work Phone: Potassium [Moles/Vol] 4.0 mmol/L 3.5 - 5.1 mmol/L [facility] Work Phone: Sodium [Moles/Vol] 140 mmol/L 135 - 145 mmol/L [facility] Work Phone: Urea nitrogen (BldV) [Mass/Vol] 9 mg/dL 7 - 20 mg/dL [facility] Work Phone: Complete Urinalysison 2020 Bilirubin,Urine Negative Normal Negative [facility] Comment on above: Result Comment: . Performed By: #### C UA2, FENTU, DRGA4 #### [facility] [address], [place] Glucose Ql (U) Normal Normal Normal (<70) [facility] Comment on above: Result Comment: . Performed By: #### C UA2, FENTU, DRGA4 #### [facility] [employer] [place] [address], [place] Ketone,Urine 10 mg/dL Abnormal Negative [facility] Comment on above: Result Comment: . Performed By: #### C UA2, FENTU, DRGA4 #### [facility] [employer] [place] [address], [place] Leukocytes,Urine Negative Normal Negative [facility] Comment on above: Result Comment: . Performed By: #### C UA2, FENTU, DRGA4 #### [facility] [employer] [place] [address] [address], [place] Nitrites,Urine Negative Normal Negative [facility] Comment on above: Result Comment: . Performed By: #### C UA2, FENTU, DRGA4 #### [facility] [employer] [place] [address], [place] pH,Urine 8.0 Normal 5.0-8.0 [facility] Comment on above: Result Comment: . Performed By: #### C UA2, FENTU, DRGA4 #### [place] [address] [address], [place] Specific Palatine,Urine 1.013 Normal 1.005 - 1.030 [facility] Comment on above: Result Comment: . Performed By: #### C UA2, FENTU, DRGA4 #### [employer] [facility] [address], [place] Complete UrinalysisOrdered B y: Pamela Lopez on 08-11-2020 Appearance (U) Turbid Abnormal Clear [facility] Work Phone: Comment on above: . Result Comment: . Performed By: #### C UA2, FENTU, DRGA4 #### [employer] [facility] [address], [place] Color (U) Light-Yellow Normal Lt. Yellow [facility] Work Phone: Comment on above: . Result Comment: . Performed By: #### C UA2, FENTU, DRGA4 #### [employer] [place] [address] [address], [place] Occult Blood,Urine Negative Normal Negative [facility] Work Phone: Comment on above: . Result Comment: . Performed By: #### C UA2, FENTU, DRGA4 #### [facility] [address], [place] Total Protein, Urine Negative Normal Negative [facility] Work Phone: Comment on above: . Result Comment: . Performed By: #### C UA2, FENTU, DRGA4 #### [employer] [place] [address] [address], [place] Urobilinogen, Urine Normal Normal Normal (0-1) [facility] Work Phone: Comment on above: . Result Comment: . Performed By: #### C UA2, FENTU, DRGA4 #### [employer] [place] [address] [address], [place] Drugs of Abuseon 08-11-2020 Amphetamines, Ur Negative Normal [facility] Comment on above: Performed By: #### C UA2, FENTU, DRGA4 #### [employer] [place] [address] [address], [place] Phencyclidine (PCP), Ur Negative Normal [facility] Comment on above: Result Comment: The expected value for all of the drugs listed above is Negative. The following drugs or drug groups have been screened for by Immunoassay at the following thresholds: Amphetamine class (1000 ng/mL), Barbiturates (200 ng/mL), Benzodiazepines (200 ng/mL), Cocaine (300 ng/mL), Methadone (300 ng/mL), Opiates (300 ng/mL), Oxycodone (100 ng/mL), and PCP (25 ng/mL). NOTE: These results are for medical treatment only. Analysis performed using non-forensic procedures. POSITIVE results are NOT confirmed by a more specific alternative method unless requested. If confirmation is needed, request confirmation under separate order. Performed By: #### C JASMIN BECKFORD, DRGA4 #### [place] [address] [address] [facility], [place] Methadone, Ur Negative Normal [facility] Comment on above: Performed By: #### C UA2JASMIN, DRGA4 #### [place] [address] [place], [place] Cocaine, Ur Negative Normal [facility] Comment on above: Performed By: #### C UA2KIARRAU, DRGA4 #### [place] [address] [address] [facility], [place] Opiates, Ur Negative Normal [facility] Comment on above: Performed By: #### C UA2KIARRAU, DRGA4 #### [place] [address] [address] [facility], [place] Barbiturates, Ur Negative Normal [facility] Comment on above: Performed By: #### C UA2JASMIN, DRGA4 #### [place] [address] [address] [facility] [place] Benzodiazepines, Ur Negative Normal [facility] Comment on above: Performed By: #### C UA2JASMIN, DRGA4 #### [place] [address] [address] [facility], [place] Oxycodone/Oxymorphin e,Ur Negative Normal [facility] Comment on above: Performed By: #### C UA2JASMIN, DRGA4 #### [place] [address] [address] [facility], [place] ED Provider Noteon 1 ED Provider Note [facility] eMERGENCY dEPARTMENT eNCOUnter Pt Name: Lisa Chaudhry Birthdate 1980 Date of evaluation: 08/11/2020 Provider: Pamela Lopez PA-C CHIEF COMPLAINT Chief Complaint Patient presents with ? Drug Overdose patient to ED11 with potential overdose on unknown substance. patient sent from [facility], patient noted to have dilated pupils and sleepy. patient admits to using $50 worth of Heroin yesterday at 1200. patient denies using any substance since then. patient was found by [facility] staff to have multiple suboxone patches on her. patient stated that they gave them to her. patient admitted to this RN that they were in her wallet and she brought them with her. patient is alert to voice, remains drowsy. I evaluated this patient in conjunction with Dr. Lindsey the ED attending who is in agreement with the assessment and plan. HISTORY OF PRESENT ILLNESS (Location/Symptom, Timing/Onset,Context/Settin g, Quality, Duration, Modifying Factors, Severity) Note limiting factors. HPI Lisa Chaudhry is a 40 y.o. female who presents to the emergency department for evaluation of possible overdose. Patient is here from [facility]. States the nurse gave her medicine, a pill, a has been very sleepy since. Feels nauseous since with out emesis. [facility] concerned of possible other substance ingestion due to drowsy state and dilated pupils. She states yesterday she used Heroin but hasn't used any today. Prior to going into [facility] used $50 of Heroin daily. Today was found by staff with 3 Suboxone films on her person. Nursing Notes were reviewed. REVIEW OF SYSTEMS (2+ forlevel 4; 10+ for level 5) Review of Systems at least 10 systems reviewed and otherwise acutely negative except as stated in [place]. PAST MEDICAL HISTORY Past Medical History: Diagnosis Date ? Asthma ? Depression ? Drug abuse in remission (HCC) ? Endometriosis ? Eye discharge ? Eye pain ? Hepatitis C ? IBS (irritable bowel syndrome) ? Migraine with aura, intractable 07/06/2015 ? Seasonal allergies SURGICALHISTORY Past Surgical History: Procedure Laterality Date ? LAPAROSCOPY ? OTHER SURGICAL HISTORY mole removal ? TONSILLECTOMY CURRENT MEDICATIONS Previous Medications ALBUTEROL SULFATE HFA 108 (90 BASE) MCG/ACT INHALER INHALE TWO PUFFS INTO THE LUNGS EVERY 6 HOURS NEEDED FOR WHEEZING CETIRIZINE (ZYRTEC) 10 MG TABLET Take 1 tablet by mouth daily FLUTICASONE (FLONASE) 50 MCG/ACT NASAL SPRAY 1 spray by Nasal route daily LAMOTRIGINE (LAMICTAL) 25 MG TABLET TAKE 1 TABLET BY MOUTH FOR 2 WEEKS. THEN TAKE 2 TABS ONCE A DAY FOR 2 WEEKS. STOP FOR RASH LINACLOTIDE (LINZESS) 145 MCG CAPSULE Take 1 capsule by mouth every morning (before breakfast) MEDROXYPROGESTERONE ACETATE (DEPO-PROVERA IM) Inject into the muscle every 3 months MONTELUKAST (SINGULAIR) 10 MG TABLET Take 1 tablet by mouth daily MULTIPLE VITAMINS-MINERALS (MULTIVITAMIN ADULT PO) Take by mouth PROBIOTIC PRODUCT PO Take 1 tablet by mouth daily RISPERIDONE (RISPERDAL) 1 MG TABLET TAKE 1/2 TABLET BY MOUTH AT BEDTIME FOR 1 WEEK. THEN TAKE 1 TAB THEREAFTER SUBOXONE 8-2 MG FILM SL FILM DISSOLVE ONE FILM UNT ONCE D UTD SUMATRIPTAN (IMITREX) 50 MG TABLET Take 1 at onset of headache, may repeat in 2 hr; max 100mg/24 hrs SYMBICORT 160-4.5 MCG/ACT AERO Inhale 2 puffs into the lungs 2 times daily VENLAFAXINE (EFFEXOR XR) 150 MG EXTENDED RELEASE CAPSULE TAKE ONE CAPSULE BY MOUTH ONCE A DAY ALLERGIES Latex, Pollen extract, and Bee pollen FAMILY HISTORY Family History Problem Relation Age of Onset ? Macular Degen Mother ? Other Father blood infection; liver dis; septic-age 59 ? Diabetes Paternal Grandmother ? Breast Cancer Paternal Grandmother 45 in one breast, 50 in the other ? Cancer Neg Hx ? Colon Cancer Neg Hx ? Heart Attack Neg Hx ? Heart Disease Neg Hx ? Stroke Neg Hx ? High Blood Pressure Neg Hx ? High Cholesterol Neg Hx ? Depression Neg Hx ? Mental Illness Neg Hx ? Substance Abuse Neg Hx SOCIAL HISTORY Social History Socioeconomic History ? Marital status: Single Spouse name: Not on file ? Number of children: Not on file ? Years of education: Not on file ? Highest education level: Not on file Occupational History ? Not on file Social Needs ? Financial resource strain: Not hard at all ? Food insecurity Worry: Never true Inability: Never true ? Transportation needs Medical: No Non-medical: No Tobacco Use ? Smoking status: Current Every Day Smoker Packs/day: 1.00 Years: 15.00 Pack years: 15.00 Types: Cigarettes ? Smokeless tobacco: Never Used ? Tobacco comment: pt also vapes Substance and Sexual Activity ? Alcohol use: No Alcohol/week: 0.0 standard drinks ? Drug use: Not Currently ? Sexual activity: Yes Partners: Male Comment: live with fiance; monogamous relationship; feels safe in home Lifestyle ? Physical ac (more content not included)... Normal [facility] ED Provider Note Emergency Department Encounter [facility] Patient: Lisa Chaudhry : 1980 Date of Evaluation: 08/11/2020 ED Supervising Physician: BLANCA LINDSEY MD I independently examined and evaluated Lisa Chaudhry. I wore a N95 mask, gloves, and goggles for the entirety of this encounter. In brief, Lisa Chaudhry is a 40 y.o. female that presents to the emergency department for evaluation of altered mental status. The patient is at the [facility] and they reportedly found 3 Suboxone films that the patient had. They are not sure if she took them. She states that the nurse gave her pills and those made her feel sick and tired. States she has been nauseated and vomiting. She denies heroin use since yesterday at noon. Denies any auditory visual hallucinations. Denies suicidal homicidal ideation. Denies any other concerns or complaints Focused exam: General appearance: Well-appearing, no acute distress. Psych: Drowsy arousable to verbal alert and oriented ?3. Pleasant and cooperative. Skin: Warm and dry. Neck: Supple. HEENT: PERRL, EOMI, MMM Pupils are reactive but are dilated Cardiovascular: Cardia with regular rhythm Lungs: Clear to auscultation bilaterally, no accessory muscle use, tachypnea, or retractions. Abdomen: Soft, nontender, and nondistended, no rebound, rigidity, or guarding, positive bowel sounds 4 quadrants. Extremities: Warm and well perfused. NROM and SILT throughout upper and lower extermities. Brief ED course/MDM: Patient placed on a monitoring coordinator will be evaluated with blood work here in the emergency department All diagnostic, treatment, and disposition decisions were made by myself in conjunction with the ROCCO/Resident. I also supervised boykin portions of any procedures performed by the ROCCO/Resident. For all further details of the patient's emergency department visit, please see their documentation. (Please note that portions of this note may have been completed with a voice recognition program. Efforts were made to edit the dictations but occasionally words are mis-transcribed.) BLANCA LINDSEY MD Acute Care [facility] Blanca Lindsey MD 08/11/20 1718 [facility] ED Provider Note Emergency Department Encounter Location: [facility] Patient: Lisa Chaudhry : 1980 Date of evaluation: 08/11/2020 ED Provider: Dayo Beasley MD 03:00a.m. Lisa Chaudhry was checked out to me by Dr. Lindsey. Please see his/her initial documentation for details of the patient's initial ED presentation, physical exam and completed studies. In brief, Lisa Chaudhry is a 40 y.o. female that presented to the emergency department due to intoxication. The patient was signed out to me pending sober reevaluation for safe discharge I have reviewed and interpreted all of the currently available lab results and diagnostics from this visit: Results for orders placed or performed during the hospital encounter of 08/11/20 Basic Metabolic Panel Result Value Ref Range Sodium 140 135 - 145 mmol/L Potassium 4.0 3.5 - 5.1 mmol/L Chloride 106 98 - 107 mmol/L CO2 24 22 - 30 mmol/L Anion Gap 9 3 - 13 mmol/L Glucose 122 (H) 70 - 100 mg/dL BUN 9 7 - 20 mg/dL CREATININE 0.46 (L) 0.52 - 1.25 mg/dL eGFR >90.0 >60 mL/min EGFR IF NonAfrican Argentine >90.0 >60 mL/min Calcium 9.7 8.4 - 10.4 mg/dL Hemogram (CBC) w/Auto Diff Result Value Ref Range WBC 8.4 3.6 - 10.7 10*3/uL RBC 5.06 3.80 - 5.20 10*6/uL Hemoglobin 15.4 11.7 - 16.0 g/dL Hematocrit 46.5 35.0 - 47.0 % MCV 91.9 79.0 - 98.0 fL MCH 30.4 26.0 - 34.0 pg MCHC 33.1 32.0 - 36.0 % RDW 13.3 11.5 - 14.5 % Platelets 309 140 - 440 10*3/uL MPV 8.7 7.4 - 10.4 fL Granulocytes % 79.3 40.0 - 80.0 % Lymphocyte % 16.9 (L) 20.0 - 40.0 % Monocytes 3.5 2.0 - 10.0 % Eosinophils 0.1 (L) 1.0 - 6.0 % Basophils 0.2 0.0 - 2.0 % Absolute Neut # 6.7 1.8 - 7.0 10*3/uL Absolute Lymph # 1.4 1.0 - 4.3 10*3/uL Absolute [place] # 0.3 0.0 - 0.8 10*3/uL Absolute Eos # 0.0 0.0 - 0.5 10*3/uL Absolute Baso # 0.0 0.0 - 0.2 10*3/uL Urinalysis Result Value Ref Range Glucose, Ur Normal Normal (<70) mg/dL Total Protein, Urine Negative Negative mg/dL Bilirubin Urine Negative Negative mg/dL Urobilinogen, Urine Normal Normal (0-1) mg/dL pH, Urine 8.0 5.0 - 8.0 NA Specific [place]at[place], Urine 1.013 1.005 - 1.030 NA Occult Blood,Urine Negative Negative mg/dL Ketones, Urine 10 (A) Negative mg/dL Nitrite, Urine Negative Negative NA LEUKOCYTES, UA Negative Negative Maggie/uL Appearance Turbid (A) Clear NA Color, Urine Light-Yellow Lt. Yellow NA Urine Drug Screen Result Value Ref Range Amphetamines, urine Negative NA Barbiturates, Ur Negative NA Benzodiazepine Ur Qual Negative NA Cocaine Metabolites, Ur Negative NA Methadone, Urine Negative NA Opiates, Urine Negative NA Oxycodone Screen, Ur Negative NA PCP, Urine Negative NA Ethanol Result Value Ref Range Ethanol Lvl <0.010 0.000 - 0.010 g/dL FENTANYL, URINE Result Value Ref Range Fentanyl POSITIVE Negative NA ACETAMINOPHEN LEVEL Result Value Ref Range Acetaminophen Level <10.0 10.0 - 30.0 ug/mL SALICYLATE LEVEL Result Value Ref Range Salicylate Lvl <1.0 0.0 - 20.0 mg/dL POC Urine Result Value Ref Range HCG, Urine, POC Negative Negative Lot Number [id number] Positive QC Pass/Fail Pass Negative QC Pass/Fail Pass No results found. Final ED Course and MDM: In brief, Lisa Chaudhry is a 40 y.o. female whose care was signed out to me by the outgoing provider. In brief, I reevaluated the patient at 6 AM and she was keenly alert, hemodynamically stable, ready for discharge. The patient was given a bus pass. Discussed follow-up plan and return precautions at bedside with the patient who acknowledges understanding and is agreeable. ED Medication Orders (From admission, onward) Start Ordered Status Ordering Provider 08/12/20 0200 08/12/20 0145 ondansetron (ZOFRAN) injection 4 mg ONCE Last JUN action: Given - by DARRYL POLO on 08/12/20 at 0220 PAMELA LOPEZ 08/11/20 1730 08/11/20 1718 sodium chloride flush 0.9 % injection 3 mL EVERY 8 HOURS Last JUN action: Not Given - by DARRYL POLO on 08/12/20 at 0220 PAMELA LOPEZ 08/11/20 1730 08/11/20 1726 ondansetron (ZOFRAN) injection 4 mg ONCE Last MAR action: Given - by GIAN QUEEN on 08/11/20 at 1845 PAMELA LOPEZ Final Impression 1. Drug overdose, undetermined intent, initial encounter DISPOSITION Discharge - Pending Orders Complete 08/12/2020 02:44:10 AM (Please note that portions of this note may have been completed with a voice recognition program. Efforts were made to edit the dictations but occasionally words are mis-transcribed.) Dayo Beasley MD [employer] Dayo Beasley MD 08/15/20 0650 Normal [facility] EthanolOrdered By: Pamela Lopez on 08-11-2020 Ethanol Lvl <0.010 0.000 - 0.010 g/dL [facility] Work Phone: Comment on above: NOTE: This result is for medical treatment only. Analysis performed using non-forensic procedures. Ethanol Serum/Plasmaon 08-11 Ethanol-Serum/Plasma < 0.010 Normal 0.000-0.010 [facility] Comment on above: Result Comment: NOTE : This result is for medical treatment only. Analysis performed using non-forensic procedures. Performed By: #### S AL33, BMP3, ETOH4, HEMDF, ACET4 #### [employer] [address] [place] [phone] FENTANYL, URINEOrdered By: Betzaida Lopez on 08-11-2020 Fentanyl Positive Negative NA [employer] Work Phone: Comment on above: Fentanyl has been sc reened for by Immunoassay at a 2ng/ml threshold. POSITIVE results are not confirmed by a more specific alternative method unless requested. If confirmation is needed, request confirmation under separate order. NOTE: These results are for medical treatment only. Analysis performed using non-forensic procedures. Test Performed by [facility] [email or web address], [address] [place] [id number] [employer] Work Phone: Fentanyl Screen, Urineon Fentanyl Screen, Urn Positive Normal Negative [facility] Comment on above: Result Comment: Fent anyl has been screened for by Immunoassay at a 2ng/ml threshold. POSITIVE results are not confirmed by a more specific alternative method unless requested. If confirmation is needed, request confirmation under separate order. NOTE: These results are for medical treatment only. Analysis performed using non-forensic procedures. Performed By: #### C UA2, FENTU, DRGA4 #### [employer] [address] [place] [address] Hemogram (CBC) w/Auto DiffOr dered By: Pamela Lopez on 08-11-2020 Absolute Baso # 0.0 10*3/uL 0.0 - 0.2 10*3/uL [facility] Work Phone: [phone] Absolute Neut # 6.7 10*3/uL 1.8 - 7.0 10*3/uL [facility] Work Phone: ) [phone] Basophils/100 WBC (Bld) 0.2 % 0.0 - 2.0 % [facility] Work Phone: [phone] Eosinophils (Bld) [#/Vol] 0.0 10*3/uL 0.0 - 0.5 10*3/uL [facility] Work Phone: ) 222 Eosinophils/100 WBC (Bld) 0.1 % Low 1.0 - 6.0 % [facility] Work Phone: [phone] Granulocytes/100 WBC (Bld) 79.3 % 40.0 - 80.0 % [facility] Work Phone: [phone] Hematocrit (Bld) [Volume fraction] 46.5 % 35.0 - 47.0 % [facility] Work Phone: [phone] Hemoglobin.gastroint estinal spec 1 Ql (Stl) 15.4 g/dL 11.7 - 16.0 g/dL [facility] Work Phone: [phone] Lymphocytes (Bld) [#/Vol] 1.4 10*3/uL 1.0 - 4.3 10*3/uL [facility] Work Phone: [phone] Lymphocytes/100 WBC (Bld) 16.9 % Low 20.0 - 40.0 % [facility] Work Phone: () 222 MCH (RBC) [Entitic mass] 30.4 pg 26.0 - 34.0 pg [facility] Work Phone: () 222 MCHC (RBC) [Mass/Vol] 33.1 % 32.0 - 36.0 % [facility] Work Phone: [phone] MCV (RBC) [Entitic vol] 91.9 fL 79.0 - 98.0 fL [facility] Work Phone: () 222 Monocytes (Bld) [#/Vol] 0.3 10*3/uL 0.0 - 0.8 10*3/uL [facility] Work Phone: ) 222 Monocytes/100 WBC (Bld) 3.5 % 2.0 - 10.0 % [facility] Work Phone: [phone] Platelet distribution width (Bld) [Ratio] 13.3 % 11.5 - 14.5 % [facility] Work Phone: () 222 Platelet mean volume (Bld) [Entitic vol] 8.7 fL 7.4 - 10.4 fL [facility] Work Phone: [phone] Platelets (Bld) [#/Vol] 309 10*3/uL 140 - 440 10*3/uL [facility] Work Phone: [phone] RBC (Bld) [#/Vol] 5.06 10*6/uL 3.80 - 5.2 0 10*6/uL [facility] Work Phone: WBC (Bld) [#/Vol] 8.4 10*3/uL 3.6 - 10.7 10*3/uL [facility] Work Phone: Test Performed by [facility], [address] [place] [id number] [place] [address] Work Phone: Hemogram w/ [employer] 08-11 Abs Baso Cnt 0.0 10*3/uL Normal 0.0-0.2 [facility] Comment on above: Performed By: #### S AL33, BMP3, ETOH4, HEMDF, ACET4 #### [address] Abs Neutrophile Cnt 6.7 10*3/uL Normal 1.8-7.0 [facility] Comment on above: Performed By: #### S AL33, BMP3, ETOH4, HEMDF, ACET4 #### [address] Basophils/100 WBC (Bld) 0.2 % Normal 0.0-2.0 [facility] Comment on above: Performed By: #### S AL33, BMP3, ETOH4, HEMDF, ACET4 #### [address] Eosinophils (Bld) [#/Vol] 0.0 10*3/uL Normal 0.0-0.5 [facility] Comment on above: Performed By: #### S AL33, BMP3, ETOH4, HEMDF, ACET4 #### [address] Eosinophils/100 WBC (Bld) 0.1 % Low 1.0-6.0 [facility] Comment on above: Performed By: #### S AL33, BMP3, ETOH4, HEMDF, ACET4 #### [address] Erythrocyte distribution width (RBC) [Ratio] 13.3 % Normal 11.5-14.5 [facility] Comment on above: Performed By: #### S AL33, BMP3, ETOH4, HEMDF, ACET4 #### [address] Granulocytes/100 WBC (Bld) 79.3 % Normal 40.0-80.0 [facility] Comment on above: Performed By: #### S AL33, BMP3, ETOH4, HEMDF, ACET4 #### [place] [address] [place], [place] Hematocrit (Bld) [Volume fraction] 46.5 % Normal 35.0-47.0 [facility] Comment on above: Performed By: #### S AL33, BMP3, ETOH4, HEMDF, ACET4 #### [address] Hemoglobin (Bld) [Mass/Vol] 15.4 g/dL Normal 11.7-16.0 [facility] Comment on above: Performed By: #### S AL33, BMP3, ETOH4, HEMDF, ACET4 #### [address] [place] [address] [place], [place] Lymphocytes (Bld) [#/Vol] 1.4 10*3/uL Normal 1.0-4.3 [facility] Comment on above: Performed By: #### S AL33, BMP3, ETOH4, HEMDF, ACET4 #### [address] Lymphocytes/100 WBC (Bld) 16.9 % Low 20.0-40.0 [facility] Comment on above: Performed By: #### S AL33, BMP3, ETOH4, HEMDF, ACET4 #### [address] MCH (RBC) [Entitic mass] 30.4 pg Normal 26.0-34.0 [facility] Comment on above: Performed By: #### S AL33, BMP3, ETOH4, HEMDF, ACET4 #### [place] [address] [place], [place] MCHC 33.1 % Normal 32.0-36.0 [facility] Comment on above: Performed By: #### S AL33, BMP3, ETOH4, HEMDF, ACET4 #### [place] [address] [place], [place] MCV (RBC) [Entitic vol] 91.9 fL Normal 79.0-98.0 [facility] Comment on above: Performed By: #### S AL33, BMP3, ETOH4, HEMDF, ACET4 #### [address] Monocytes (Bld) [#/Vol] 0.3 10*3/uL Normal 0.0-0.8 [facility] Comment on above: Performed By: #### S AL33, BMP3, ETOH4, HEMDF, ACET4 #### [address] Monocytes/100 WBC (Bld) 3.5 % Normal 2.0-10.0 [facility] Comment on above: Performed By: #### S AL33, BMP3, ETOH4, HEMDF, ACET4 #### [address] Platelet mean volume (Bld) [Entitic vol] 8.7 fL Normal 7.4-10.4 [facility] Comment on above: Performed By: #### S AL33, BMP3, ETOH4, HEMDF, ACET4 #### [address] Platelets (Bld) [#/Vol] 309 10*3/uL Normal 140-440 [facility] Comment on above: Performed By: #### S AL33, BMP3, ETOH4, HEMDF, ACET4 #### [address] RBC (Bld) [#/Vol] 5.06 10*6/uL Normal 3.80-5.20 [facility] Comment on above: Performed By: #### S AL33, BMP3, ETOH4, HEMDF, ACET4 #### [facility] [address] [place] [phone] WBC (Bld) [#/Vol] 8.4 10*3/uL Normal 3.6-10.7 [facility] Comment on above: Performed By: #### S AL33, BMP3, ETOH4, HEMDF, ACET4 #### [facility] [address] [place] [address] No Panel InformationOrdered By: Pamela Lopez on 08-11-2020 Test Performed by [facility], [address] [place] [id number] [facility] Work Phone: Interpretation and review of laboratory results Abnormal [facility] Work Phone: [phone] Test Performed by [facility], [address] [place] [address] [facility] Work Phone: [phone] POC UrineOrdered B y: Pamela Lopez on 08-11-2020 Beta HCG ( test) Ql (U) Negative Negative [facility] Work Phone: Beta HCG ( test) Ql (U) [id number] [facility] Work Phone: Interpretation and review of laboratory results Normal [facility] Work Phone: Negative QC Pass/Fail Pass [facility] Work Phone: Positive QC Pass/Fail Pass [facility] Work Phone: SALICYLATE LEVELOrdered By: Pamela Lopez on 08-11-2020 Salicylate Lvl <1.0 0.0 - 20.0 mg/dL [facility] Work Phone: Test Performed by [facility], [address] [place] [address] [facility] Work Phone: Salicylateson 08-11-2020 Salicylates < 1.0 Normal 0.0-20.0 [facility] Comment on above: Performed By: #### S AL33, BMP3, ETOH4, HEMDF, ACET4 #### [facility] [address] [place] [phone] UrinalysisOrdered By: Katie Lopez on 08-11-2020 Bilirubin Urine Negative Negative mg/dL [facility] Work Phone: [phone] Comment on above: . Glucose, Ur Normal Normal (<70) mg/dL [facility] Work Phone: [phone] Comment on above: . Ketones Ql (U) 10 mg/dL Abnormal Negative [facility] Work Phone: [phone] Comment on above: . LEUKOCYTES, UA Negative Negative Maggie/uL [facility] Work Phone: [phone] Comment on above: . Nitrite, Urine Negative Negative NA [facility] Work Phone: [phone] Comment on above: . pH (U) 8.0 [pH] [facility] Work Phone: [phone] Comment on above: . Specific [place], Urine 1.013 [facility] Work Phone: [phone] Comment on above: . Urine Drug ScreenOrdered By: Pamela Lopez on 08-11-2020 Amphetamines, urine Negative [facility] Work Phone: [phone] Barbiturates, Ur Negative [facility] Work Phone: [phone] Benzodiazepine Ur Qual Negative [facility] Work Phone: [phone] Cocaine Metabolites, Ur Negative [facility] Work Phone: [phone] Methadone, Urine Negative [facility] Work Phone: [phone] Opiates, Urine Negative [facility] Work Phone: [phone] Oxycodone Screen, Ur Negative [facility] Work Phone: [phone] PCP, Urine Negative [facility] Work Phone: [phone] Comment on above: The expected value f or all of the drugs listed above is Negative. The following drugs or drug groups have been screened for by Immunoassay at the following thresholds: Amphetamine class (1000 ng/mL), Barbiturates (200 ng/mL), Benzodiazepines (200 ng/mL), Cocaine (300 ng/mL), Methadone (300 ng/mL), Opiates (300 ng/mL), Oxycodone (100 ng/mL), and PCP (25 ng/mL). NOTE: These results are for medical treatment only. Analysis performed using non-forensic procedures. POSITIVE results are NOT confirmed by a more specific alternative method unless requested. If confirmation is needed, request confirmation under separate order. DENAEOVon 07-10-2020 CNOV Office Visit (OBGMEM ) LISA CHAUDHRY ([id number]) 1980 F Date Time Provider Department 07/10/20 1:30 PM VINCE OGDEN) OBEM During your visit today, we recorded the following information about you: Vince Ogden PA-C 07/10/2020 3:08 PM Signed Pt did not keep this scheduled appointment. Vince Ogden PA-C Referring Provider: SELF [[id number]] Allergies As of Date: 07/10/2020 Noted Allergy Reaction DILAUDID (HYDROMORPHONE (BULK)) 11/27/2012 16 - Unknown Date Reviewed: 01/29/2018 Reviewed by: Singh Wright Ma - Fully Assessed Reason for Visit: Appointment [[id number]] Primary Visit Diagnosis:No-show for appointment [Z53.29] Prescriptions as of 07/10/2020 Sig: BUPRENORPHINE 8 MG-NALOXONE 2* DISSOLVE ONE FILM UNT ONCE D * VENLAFAXINE ER 75 MG CAPSULE,* TK 1 C PO QD SUMATRIPTAN 50 MG TABLET Take 50 mg by mouth as direct* ONDANSETRON 4 MG DISINTEGRATI* Take 4 mg by mouth every 8 ho* MONTELUKAST 10 MG TABLET Take 10 mg by mouth daily at * FLUTICASONE PROPIONATE 50 MCG* Use 2 Sprays in each nostril * MOMETASONE-FORMOTEROL HFA 100* Inhale 2 Puffs as instructed * BETAMETHASONE DIPROPIONATE 0.* Apply 1 application to affect* ESCITALOPRAM 20 MG TABLET Take 1 tablet by mouth once d* Patient not taking: Reported on 01/29/2018 NICOTINE (POLACRILEX) 2 MG GUM Take 1 Each by mouth every 2 * ALBUTEROL 90 MCG/ACTUATION AE* Inhale 2 Puffs as instructed * Problem List As Of Date 07/10/2020 Noted Resolved Pelvic pain in female [R10.2] 07/21/2011 07/23/2011 Constipation [K59.00] 07/22/2011 07/23/2011 Abdominal pain, unspecified site [R10.9] 01/16/2012 Unspecified constipation [K59.00] 01/16/2012 Diarrhea [R19.7] 01/16/2012 Nausea with vomiting [R11.2] 05/18/2012 Low HDL (under 40) [E78.6] 07/29/2012 Tobacco abuse [Z72.0] 11/27/2012 Depression [F32.9] 01/10/2017 Drug abuse [F19.10] 01/20/2017 Nicotine use disorder, F17.2 [F17.200] 01/21/2017 Encounter Status:Closed by VINCE OGDEN PA-C on 07/10/20 Normal [facility] ED Discharge Educationon ED Discharge Education Dermatology Cellulitis: Care Instructions Your Care Instructions Cellulitis is a skin infection caused by bacteria, most often strep or staph. It often occurs after a break in the skin from a scrape, cut, bite, or puncture, or after a rash. Cellulitis may be treated without doing tests to find out what caused it. But your doctor may do tests, if needed, to look for a specific bacteria, like methicillin-resistant Staphylococcus aureus (MRSA). The doctor has checked you carefully, but problems can develop later. If you notice any problems or new symptoms, get medical treatment right away. Follow-up care is a boykin part of your treatment and safety. Be sure to make and go to all appointments, and call your doctor if you are having problems. It's also a good idea to know your test results and keep a list of the medicines you take. How can you care for yourself at home? ? Take your antibiotics as directed. Do not stop taking them just because you feel better. You need to take the full course of antibiotics. ? Prop up the infected area on pillows to reduce pain and swelling. Try to keep the area above the level of your heart as often as you can. ? If your doctor told you how to care for your wound, follow your doctor's instructions. If you did not get instructions, follow this general advice: ? Wash the wound with clean water 2 times a day. Don't use hydrogen peroxide or alcohol, which can slow healing. ? You may cover the wound with a thin layer of petroleum jelly, such as Vaseline, and a nonstick bandage. ? Apply more petroleum jelly and replace the bandage as needed. ? Be safe with medicines. Take pain medicines exactly as directed. ? If the doctor gave you a prescription medicine for pain, take it as prescribed. ? If you are not taking a prescription pain medicine, ask your doctor if you can take an gynr-zow-aoorzwr medicine. To prevent cellulitis in the future ? Try to prevent cuts, scrapes, or other injuries to your skin. Cellulitis most often occurs where there is a break in the skin. ? If you get a scrape, cut, mild burn, or bite, wash the wound with clean water as soon as you can to help avoid infection. Don't use hydrogen peroxide or alcohol, which can slow healing. ? If you have swelling in your legs (edema), support stockings and good skin care may help prevent leg sores and cellulitis. ? Take care of your feet, especially if you have diabetes or other conditions that increase the risk of infection. Wear shoes and socks. Do not go barefoot. If you have athlete's foot or other skin problems on your feet, talk to your doctor about how to treat them. When should you call for help? Call your doctor now or seek immediate medical care if: ? You have signs that your infection is getting worse, such as: ? Increased pain, swelling, warmth, or redness. ? Red streaks leading from the area. ? Pus draining from the area. ? A fever. ? You get a rash. Watch closely for changes in your health, and be sure to contact your doctor if: ? You do not get better as expected. Where can you learn more? Go to https://www.[employer].net/ patientEd Enter X309 in the search box to learn more about Cellulitis: Care Instructions. Current as of: February 18, 2019 Content Version: 12.5; ? [employer]. Care instructions adapted under license by your healthcare professional. If you have questions about a medical condition or this instruction, always ask your healthcare professional. [employer], [facility] disclaims any warranty or liability for your use of this information. Mental Health and Psychology Opioid Withdrawal: Care Instructions Overview Opioids are strong pain medicines. Examples of prescription opioids include hydrocodone, oxycodone, fentanyl, and morphine. Heroin is an example of an illegal opioid. Your body gets used to opioids if you take them all the time. This is called physical dependence. And when you stop using opioids or use less, you go through withdrawal. Withdrawal symptoms can include nausea, sweating, chills, diarrhea, stomach cramps, and muscle aches. Withdrawal can last up to several weeks. It depends on which opioid you took and how long you took it. You may feel very ill, but you probably aren't in medical danger. Withdrawal isn't easy, but there are things you can do to help you cope with the symptoms. You will feel a little bit better each day as your body adjusts and heals itself. Follow-up care is a boykin part of your treatment and safety. Be sure to make and go to all appointments, and call your doctor if you are having problems. It's also a good idea to know your test results and keep a list of the medicines you take. How can you care for yourself at home? ? Your doctor may give you medicine to help you feel better. Read and follow all instructions on the label. ? To help get through withdrawal, you can also: ? Get plenty of rest. ? Drink plenty of fluids. ? Stay active, but don't tire yourself. ? Eat a healthy diet. ? Do not drink alcohol or take illegal drugs. ? Do not take medications that make you tired, like sleeping pills or muscle relaxers. ? Talk to your doctor about drug treatment programs to help you stay drug-free. ? Talk to your doctor or pharmacist about having a naloxone rescue kit on hand. Remember after you stop taking an opioid, even for a short time, your body gets used to not having this type of drug. If you return to taking the same amount of an opioid as you did before you stopped, you could be at a higher risk for overdose. When should you call for help? Call 911 anytime you think you may need emergency care. For example, call if: ? You feel you cannot stop from hurting yourself or someone else. Call your doctor now or seek immediate medical care if: ? You have new or worse withdrawal symptoms that you can't manage at home, such as: ? Stomach cramps. ? Vomiting. ? Diarrhea. ? Muscle aches. ? Sweating. Watch closely for changes in your health, and be sure to contact your doctor if: ? You do not get better as expected. Where can you learn more? Go to https://www.[employer].net/ patientEd Enter E242 in the search box to learn more about Opioid Withdrawal: Care Instructions. Current as of: December 10, 2018 Content Version: 12.5; ? [employer]. Care instructions adapted under license by your healthcare professional. If you have questions about a medical condition or this instruction, always ask your healthcare professional. [employer] disclaims any warranty or liability for your use of this information. Learning About Opioid Use Disorder What is opioid use disorder? Opioid use disorder means that a person uses opioids even though it causes harm to themselves or others. It can range from mild to severe. The more signs of this disorder you have, the more severe it may be. Moderate to severe opioid use disorder is sometimes called addiction. People who have it may find it hard to control their use. This disorder can develop from the use of any type of opioid. Prescription ones include hydrocodone, oxycodone, fentanyl, and morphine. Heroin is an example of an illegal opioid. Opioids can be dangerous. Taking too much can cause: ? Trouble breathing. ? Low blood pressure. ? A low heart rate. ? A coma. ? . Many people with this disorder, and sometimes their families, feel embarrassed or ashamed. Don't let these feelings baking assistant the way of getting treatment. Remember that this disorder can happen to anyone who uses opioids, no matter what the reason. What are the signs? You may have opioid use disorder if two or more of the following are true. The more signs of this disorder you have, the more severe it may be. ? You use larger amounts of opioids than you ever meant to. Or you've been using them for a longer period of time than you ever meant to. ? You can't cut down or control your use. Or you constantly wish you could cut down. ? You spend a lot of time getting or using opioids or recovering from the effects. ? You have strong cravings for opioids. ? You can no longer do your main jobs at work, at school, or at home. ? You keep using, even though your opioid use hurts your relationships. ? You have stopped doing important activities because of your opioid use. ? You use opioids in situations where doing so is dangerous. ? You keep using, even though you know it is causing health problems. ? You need more and more of the opioids to get the same effect, or you get less effect from the same amount over time. This is called tolerance. ? You have uncomfortable symptoms when you stop using opioids or use less. This is called withdrawal. If you're taking opioids as part of a supervised care plan, tolerance and withdrawal may not mean that you have opioid use disorder. How is opioid use disorder treated? Treatment usually includes medicines, group therapy, one or more types of counseling, and education. Medicines may be used to help you quit. They may help to control cravings, ease withdrawal symptoms, and prevent relapse. This treatment is called medication-assisted treatment, or MAT. During MAT, you take a medicine (usually methadone or buprenorphine) in place of the opioid you were using. Most people take the medicine for months or years as a part of the treatment, along with therapy or counseling. Treatment focuses on more than opioid use. It helps you cope with the anger, frustration, sadness, and disappointment that often happen when a person tries to stop using opioids. Treatment also looks at other parts of your life, like your relationships with friends and family, school and work, medical problems, and living situation. Treatment helps you find and manage problems. It helps you take control of your life so you don't have to depend on opioids. Opioid use disorder affects your whole family. Family counseling often is part of treatment. Urgent treatment for an overdose Naloxone is a medicine that reverses the effects of an opioid overdose. If you take it or someone gives it to you soon enough after an overdose, it can save your life. Naloxone comes in a rescue kit you can carry with you. Ask your doctor or pharmacist about having a naloxone rescue kit on hand. Follow-up care is a boykin part of your treatment and safety. Be sure to make and go to all appointments, and call your doctor if you are having problems. It's also a good idea to know your test results and keep a list of the medicines you take. Where can you learn more? Go to https://www.[employer].net/ patientEd Enter X744 in the search box to learn more about Learning About Opioid Use Disorder. Current as of: December 10, 2018 Content Version: 12.5; ? [employer]. Care instructions adapted under license by your healthcare professional. If you have questions about a medical condition or this instruction, always ask your healthcare professional. [employer] disclaims any warranty or liability for your use of this information. Normal [facility] ED Physician Reporton 2020 ED Physician Report Patient: MIGUEL ANGEL CHAUDHRY Age: 40 years Sex: Female : 1980 Associated Diagnoses: Opiate dependence; Medical problem - major; Heroin withdrawal; Drug withdrawal; Cellulitis of arm, right Author: CONNOR HUTCHINSON MD Basic Information Time seen: Date & time 06/26/2020 13:02:00. History source: Patient. Arrival mode: Private vehicle. History limitation: None. History of Present Illness The patient presents with Opiate withdrawal. The onset was just prior to arrival. The course/duration of symptoms is constant. Patient is trying to switch from heroin to Suboxone. She thinks she waited too long in between. She is having some abdominal cramping and anxiety. She is also sweating. She has an appointment at 4 PM today to be seen in [place] for her heroin withdrawal. The last Suboxone was at 10:30 AM and her last heroin was at 3:30 AM.. She also complains of some redness over injection site on her right forearm.. Review of Systems Constitutional symptoms: Negative except as documented in HPI. Skin symptoms: Negative except as documented in HPI. Eye symptoms: Negative except as documented in HPI. ENMT symptoms: Negative except as documented in HPI. Respiratory symptoms: Negative except as documented in HPI. Cardiovascular symptoms: Negative except as documented in HPI. Gastrointestinal symptoms: Negative except as documented in HPI. Genitourinary symptoms: Negative except as documented in HPI. Musculoskeletal symptoms: Negative except as documented in HPI. Psychiatric symptoms: Negative except as documented in HPI. Endocrine symptoms: Negative except as documented in HPI. Hematologic/Lymphatic symptoms: Negative except as documented in HPI. Allergy/immunologic symptoms: Negative except as documented in HPI. Neurologic symptoms Negative except as documented in HPI. Additional review of systems information: All other systems reviewed and otherwise negative. Health Status Allergies: Allergic Reactions (Selected) No Known Allergies. Medications: Per nurse's notes. Immunizations: Up to date. Menstrual history: Per nurse's notes. history: not currently . Past Medical/ Family/ Social History Medical history: No active or resolved past medical history items have been selected or recorded.. Surgical history: No active procedure history items have been selected or recorded.. Family history: No family history items have been selected or recorded.. Social history: Alcohol use: Denies, Tobacco use: Regularly, Drug use: Heroin, Occupation: Unemployed, Family/social situation: Unmarried. Problem list: No qualifying data available . Physical Examination General: Alert, no acute distress, anxious. Vital Signs Skin: Warm, moist, no rash. Head: Normocephalic, atraumatic. Neck: Supple, trachea midline. Eye: Normal conjunctiva, vision unchanged. Ears, nose, mouth and throat: Oral mucosa moist. Cardiovascular: Regular rate and rhythm, No murmur, Normal peripheral perfusion, No edema. Respiratory: Lungs are clear to auscultation, respirations are non-labored, breath sounds are equal. Gastrointestinal: Soft, Nontender, Non distended. Back: Normal range of motion, Normal alignment. Musculoskeletal: Normal ROM, normal strength, 3 cm x 2 cm erythematous area over distal right forearm. No fluctuance. Consistent with localized cellulitis. No tracking redness no palpable lymph nodes. . Psychiatric: Cooperative. Neurological Alert and oriented to person, place, time, and situation, No focal neurological deficit observed, normal sensory observed, normal motor observed, normal speech observed. Medical Decision Making Differential Diagnosis: Patient is very anxious and motivated to stop the heroin and get on Suboxone due to her children. She has an appointment today. I have encouraged her to keep that appointment. We have given her Catapres patch clonidine tablet Ultram and Zofran orally. Charge her home with Phenergan as well as Augmentin for her cellulitis. I have also given her breakthrough pamphlet if she is unable to be seen where she is scheduled in [place]. She will return here immediately for worsening of symptoms or change in her condition.. Impression and Plan Diagnosis Opiate dependence ([id number] F11.20, Working, Medical) Medical problem - major (PNED [id number], Reason For Visit, Emergency medicine, Medical) Heroin withdrawal (CEC75-LW F11.23, Working, Medical) Drug withdrawal (PNED [id number], Reason For Visit, Medical) Cellulitis of arm, right (NLU46-CE L03.113, Working, Medical) Plan Condition: Stable. Disposition: ED Discharge to Home was placed.(06/26/2020 12:34:00 EST, Constant Order). Prescriptions: Launch prescriptions Pharmacy: promethazine 25 mg oral tablet (Prescribe): 25 mg = 1 tab(s), ORAL, [id number], for 2 days, PRN: for nausea/vomiting, 8 tabs, 0 Refill(s) Augmentin 875 mg-125 mg oral tablet (Prescribe): 1 tabs, ORAL, [id number], for 10 days, 20 tabs, 0 Refill(s). Patient was given the following educational materials: Opioid Use Disorder: General Info, Opioid Withdrawal, Cellulitis, Cellulitis, Opioid Withdrawal, Opioid Use Disorder: General Info, Cellulitis, Opioid Withdrawal, Opioid Use Disorder: General Info. Follow up with: [facility] Within 3 to 5 days; RHEA BOBO, Family Practice Within 3 to 5 days, RHEA BOBO, Family Practice Within 3 to 5 days; [facility]IAN Within 3 to 5 days; [facility] Outpatient Within 3 to 5 days. Counseled: Patient, Regarding diagnosis, Regarding treatment plan, Regarding prescription, Patient indicated understanding of instructions. Normal [facility] ED Progress Noteon ED Progress Note WALKED INTO ED TODAY WITH C/O WITHDRAWL SYMPTOMS FROM HEROIN. STATES SHE JUST ENTERED A SUBOXONE PROGRAM AND WAS GIVEN HER LILIAM DOSE TO TAKE THIS AM, BUT RELAPSED ON HEROIN EARLY THIS AM AT 0330 ANDS THEN TOOK THE SUBOXONE AT 1030 AM. AWAKE, ALERT, ORIENTED, SKIN WARM DRY ANDPINK. BREATH SOUNDS PADMINI RBILAT. APPEARS ANXIOUS AND THEN CALMS DOWN AFTER BEING REASSURED. STATES PERIODIC CHILLS. DR HUTCHINSON IN ROOM TO EXAMINE 1349 D/C TO HOME WITH INSTR AND WILL FOLLOW UP WITH PCP. Normal [facility] ELVER SOUMYA DIGITAL SCREEN MADHAVI Diaz 01-21-2019 Patient Name: LISA CHAUDHRY ---Mammography--- Exam Date/Time 01/21/2019 09:13:32 EDT Exam MG Breast Tomosynthesis BI Scr Ordering Physician MD ALLISON, SHANTE OSORIO Accession Number [id number] CPT4 Codes 05917 (MG Breast Tomosynthesis Scr Bl), 07084 (MG MAMMO 2D SCREENING) Reason For Exam screening Report PATIENT HISTORY: Family history of breast cancer at age 46 in paternal grandmother. Taking hormonal contraceptives for 20 years. Patient is a some day smoker, and has smoked for 20 years. Patient's BMI is 24.3. TIME SINCE LAST MAMMOGRAM: Baseline mammogram. REASON FOR EXAM: screening, asymptomatic. PROCEDURE: MG BREAST TOMOSYNTHESIS BL SCR: JANUARY 21, 2019 - 2D/3D Procedure 3D Bilateral CC and MLO view(s) were taken. 2D Bilateral CC and MLO view(s) were taken. No prior studies available for comparison. TISSUE DENSITY: There are scattered fibroglandular densities. FINDINGS: No suspicious masses, architectural distortions or suspiciously clustered microcalcifications are identified. There is no evidence of skin thickening or nipple retraction. This is the patient's first mammogram. Markings on images: BB's = Nipples; skin lesions Open bridgeport = Palpable Line = Scar 2D digital mammography and tomosynthesis imaging were performed and reviewed with CAD. ASSESSMENT: Category 1 Negative No mammographic evidence of malignancy. RECOMMENDATION: Routine screening mammogram of both breasts in 1 year. Report Dictated on Cancer Risk Assessment: This risk assessment is based on patient provided information collected in a risk survey taken at the time of this examination. Lifetime breast cancer risk: 19.8% - If greater than or equal to 20%, consider annual mammogram and annual screening Breast MRI or follow up in high risk clinic. Is the patient at elevated risk based on the HBOC criteria? Yes (Hereditary Breast and Ovarian Cancer) - If yes, consider genetic counseling and testing with high risk follow up. HNPCC mutation risk (Nascimento Syndrome): 1% - if greater than or equal to 5%, consider genetic counseling, testing and screening colonoscopy. --- Final --- Signed Date and Time: 01/21/2019 9:57 am Signed by: MD HALIE, [facility], [place], [place] Incoming Radiology Results From [facility] - 01/21/2019 11:18 AM EDT Patient Name: LISA CHAUDHRY ---Mammography--- Exam Date/Time 01/21/2019 09:13:32 EDT Exam MG Breast Tomosynthesis BI Scr Ordering Physician MD ALLISON, SHANTE OSORIO Accession Number [id number] CPT4 Codes 55219 (MG Breast Tomosynthesis Scr Bl), 05464 (MG MAMMO 2D SCREENING) Reason For Exam screening Report PATIENT HISTORY: Family history of breast cancer at age 46 in paternal grandmother. Taking hormonal contraceptives for 20 years. Patient is a some day smoker, and has smoked for 20 years. Patient's BMI is 24.3. TIME SINCE LAST MAMMOGRAM: Baseline mammogram. REASON FOR EXAM: screening, asymptomatic. PROCEDURE: MG BREAST TOMOSYNTHESIS BL SCR: JANUARY 21, 2019 - 2D/3D Procedure 3D Bilateral CC and MLO view(s) were taken. 2D Bilateral CC and MLO view(s) were taken. No prior studies available for comparison. TISSUE DENSITY: There are scattered fibroglandular densities. FINDINGS: No suspicious masses, architectural distortions or suspiciously clustered microcalcifications are identified. There is no evidence of skin thickening or nipple retraction. This is the patient's first mammogram. Markings on images: BB's = Nipples; skin lesions Open bridge[place] = Palpable Line = Scar 2D digital mammography and tomosynthesis imaging were performed and reviewed with CAD. ASSESSMENT: Category 1 Negative No mammographic evidence of malignancy. RECOMMENDATION: Routine screening mammogram of both breasts in 1 year. Report Dictated on Cancer Risk Assessment: This risk assessment is based on patient provided information collected in a risk survey taken at the time of this examination. Lifetime breast cancer risk: 19.8% - If greater than or equal to 20%, consider annual mammogram and annual screening Breast MRI or follow up in high risk clinic. Is the patient at elevated risk based on the HBOC criteria? Yes (Hereditary Breast and Ovarian Cancer) - If yes, consider genetic counseling and testing with high risk follow up. HNPCC mutation risk (Nascimento Syndrome): 1% - if greater than or equal to 5%, consider genetic counseling, testing and screening colonoscopy. --- Final --- Signed Date and Time: 01/21/2019 9:57 am Signed by: MD HALIE, KARIME [facility], [place] MG Breast Tomosynthesis Scr Blon 01-21-2019 MG Breast Tomosynthesis Scr Bl Patient Name: LISA CHAUDHRY Mammography Exam Date/Time 01/21/2019 09:13:32 EDT Exam MG Breast Tomosynthesis BI Scr Ordering Physician MD ALLISON, SHANTE OSORIO Accession Number [id number] CPT4 Codes 21799 (MG Breast Tomosynthesis Scr Bl), 47470 (MG MAMMO 2D SCREENING) Reason For Exam screening Report PATIENT HISTORY: Family history of breast cancer at age 46 in paternal grandmother. Taking hormonal contraceptives for 20 years. Patient is a some day smoker, and has smoked for 20 years. Patient's BMI is 24.3. TIME SINCE LAST MAMMOGRAM: Baseline mammogram. REASON FOR EXAM: screening, asymptomatic. PROCEDURE: MG BREAST TOMOSYNTHESIS BL SCR: JANUARY 21, 2019 - 2D/3D Procedure 3D Bilateral CC and MLO view(s) were taken. 2D Bilateral CC and MLO view(s) were taken. No prior studies available for comparison. TISSUE DENSITY: There are scattered fibroglandular densities. FINDINGS: No suspicious masses, architectural distortions or suspiciously clustered microcalcifications are identified. There is no evidence of skin thickening or nipple retraction. This is the patient's first mammogram. Markings on images: BB's = Nipples; skin lesions Open bridge[place] = Palpable Line = Scar 2D digital mammography and tomosynthesis imaging were performed and reviewed with CAD. ASSESSMENT: Category 1 Negative No mammographic evidence of malignancy. RECOMMENDATION: Routine screening mammogram of both breasts in 1 year. Report Dictated on Cancer Risk Assessment: This risk assessment is based on patient provided information collected in a risk survey taken at the time of this examination. Lifetime breast cancer risk: 19.8% - If greater than or equal to 20%, consider annual mammogram and annual screening Breast MRI or follow up in high risk clinic. Is the patient at elevated risk based on the HBOC criteria? Yes (Hereditary Breast and Ovarian Cancer) - If yes, consider genetic counseling and testing with high risk follow up. HNPCC mutation risk (Nascimento Syndrome): 1% - if greater than or equal to 5%, consider genetic counseling, testing and screening colonoscopy. Final Signed Date and Time: 01/21/2019 9:57 am Signed by: MD HALIE, KARIME [place] Normal [facility] Comp Metabolic Panelon 01-12 ALT [Catalytic activity/Vol] 48 U/L Normal 13-69 [facility] Comment on above: Performed By: #### T SH5, HEMDF, LIPD2, CMP3 #### [facility] [address] [place] [address] Calcium [Mass/Vol] 9.7 mg/dL Normal 8.4-10.4 [facility] Comment on above: Performed By: #### T SH5, HEMDF, LIPD2, CMP3 #### [facility] [address] [place] [address] ALP [Catalytic activity/Vol] 80 U/L Normal 38-126 [facility] Comment on above: Performed By: #### T SH5, HEMDF, LIPD2, CMP3 #### [facility] [address] [place] [address] Anion gap [Moles/Vol] 7 Normal [facility] Comment on above: Performed By: #### T SH5, HEMDF, LIPD2, CMP3 #### [facility] [address] [place] [address] AST [Catalytic activity/Vol] 37 U/L Normal 15-46 [facility] Comment on above: Performed By: #### T SH5, HEMDF, LIPD2, CMP3 #### [facility] [address] [place] [address] Bilirubin [Mass/Vol] 0.3 mg/dL Normal 0.2-1.3 [facility] Comment on above: Performed By: #### T SH5, HEMDF, LIPD2, CMP3 #### [facility] [address] [place] [address] CO2 [Moles/Vol] 26 mmol/L Normal 22-30 [facility] Comment on above: Performed By: #### T SH5, HEMDF, LIPD2, CMP3 #### [facility] [address] [place] [address] Glucose [Mass/Vol] 90 mg/dL Normal 70-100 [facility] Comment on above: Performed By: #### T SH5, HEMDF, LIPD2, CMP3 #### [facility] [address] [place] [address] Protein [Mass/Vol] 7.5 g/dL Normal 6.3-8.2 [facility] Comment on above: Performed By: #### T SH5, HEMDF, LIPD2, CMP3 #### [facility] [address] [place] [address] Urea nitrogen [Mass/Vol] 14 mg/dL Normal 7-20 [facility] Comment on above: Performed By: #### T SH5, HEMDF, LIPD2, CMP3 #### [facility] [address] [place] [address] Creatinine [Mass/Vol] 0.73 mg/dL Normal 0.52-1.25 [facility] Comment on above: Performed By: #### T SH5, HEMDF, LIPD2, CMP3 #### [facility] [address] [place] [address] GFR/1.73 sq M predicted among blacks MDRD (S/P/Bld) [Vol rate/Area] mL/min/{1.73_m2} Normal >60 [facility] Comment on above: Performed By: #### T SH5, HEMDF, LIPD2, CMP3 #### [facility] [address] [place] [address] GFR/1.73 sq M predicted among non-blacks MDRD (S/P/Bld) [Vol rate/Area] mL/min/{1.73_m2} Normal >60 [facility] Comment on above: Result Comment: Sour ce- MDRD equation with creatinine calibration to IDMS(NKDEP) eGFR not recommended for drug dose adjustment Performed By: #### T SH5, HEMDF, LIPD2, CMP3 #### [facility] [address] [place] [address] Albumin [Mass/Vol] 4.0 g/dL Normal 3.5-5.0 [facility] Comment on above: Performed By: #### T SH5, HEMDF, LIPD2, CMP3 #### [facility] [address] [place] [address] Chloride [Moles/Vol] 109 mmol/L High 98-107 [facility] Comment on above: Performed By: #### T SH5, HEMDF, LIPD2, CMP3 #### [facility] [address] [place] [address] Potassium [Moles/Vol] 4.3 mmol/L Normal 3.5-5.1 [facility] Comment on above: Performed By: #### T SH5, HEMDF, LIPD2, CMP3 #### [facility] [address] [place] [address] Sodium [Moles/Vol] 142 mmol/L Normal 135-145 [facility] Comment on above: Performed By: #### T SH5, HEMDF, LIPD2, CMP3 #### [facility] [address] [place] [address] HIV 1,2 Ab; p24 Agon 019 HIV 1,2 Ab; p24 Ag NONREACTIVE Normal Nonreactive [facility] Comment on above: Result Comment: Resu lts obtained using the FDA cleared 4th generation HIV test. This test detects antibodies to HIV1, HIV2, HIV Group O, and the presence of the HIV-1 p24 antigen. A Non-Reactive re- sult indicates the patient is negative for both HIV antibody and HIV p24 antigen. All reactive results will undergo reflex confirmation testing at an additional charge. Performed By: #### H IV4, RPR, HBSAG #### [facility] [address] [place] [address] Hemogram w/ Autodiffon 01-12 Abs Baso Cnt 0.1 10*3/uL Normal 0.0-0.2 [facility] Comment on above: Performed By: #### T SH5, HEMDF, LIPD2, CMP3 #### [facility] [address] [place] [address] Abs Neutrophile Cnt 3.4 10*3/uL Normal 1.8-7.0 [facility] Comment on above: Performed By: #### T SH5, HEMDF, LIPD2, CMP3 #### [facility] [address] [place] [address] Basophils/100 WBC (Bld) 0.6 % Normal 0.0-2.0 [facility] Comment on above: Performed By: #### T SH5, HEMDF, LIPD2, CMP3 #### [facility] [address] [place] [address] Eosinophils (Bld) [#/Vol] 0.4 10*3/uL Normal 0.0-0.5 [facility] Comment on above: Performed By: #### T SH5, HEMDF, LIPD2, CMP3 #### [facility] [address] [place] [address] Eosinophils/100 WBC (Bld) 5.5 % Normal 1.0-6.0 [facility] Comment on above: Performed By: #### T SH5, HEMDF, LIPD2, CMP3 #### [facility] [address] [place] [address] Erythrocyte distribution width (RBC) [Ratio] 13.4 % Normal 11.5-14.5 [facility] Comment on above: Performed By: #### T SH5, HEMDF, LIPD2, CMP3 #### [facility] [address] [place] [address] Granulocytes/100 WBC (Bld) 43.0 % Normal 40.0-80.0 [facility] Comment on above: Performed By: #### T SH5, HEMDF, LIPD2, CMP3 #### [facility] [address] [place] [address] Hematocrit (Bld) [Volume fraction] 43.4 % Normal 35.0-47.0 [facility] Comment on above: Performed By: #### T SH5, HEMDF, LIPD2, CMP3 #### [facility] [address] [place] [address] Hemoglobin (Bld) [Mass/Vol] 15.2 g/dL Normal 11.7-16.0 [facility] Comment on above: Performed By: #### T SH5, HEMDF, LIPD2, CMP3 #### [facility] [address] [place] [address] Lymphocytes (Bld) [#/Vol] 3.2 10*3/uL Normal 1.0-4.3 [facility] Comment on above: Performed By: #### T SH5, HEMDF, LIPD2, CMP3 #### [facility] [address] [place] [address] Lymphocytes/100 WBC (Bld) 40.5 % High 20.0-40.0 [facility] Comment on above: Performed By: #### T SH5, HEMDF, LIPD2, CMP3 #### [facility] [address] [place] [address] MCH (RBC) [Entitic mass] 32.9 pg Normal 26.0-34.0 [facility] Comment on above: Performed By: #### T SH5, HEMDF, LIPD2, CMP3 #### [facility] [address] [place] [address] MCHC (RBC) [Mass/Vol] 35.0 % Normal 32.0-36.0 [facility] Comment on above: Performed By: #### T SH5, HEMDF, LIPD2, CMP3 #### [facility] [address] [place] [address] MCV (RBC) [Entitic vol] 94.0 fL Normal 79.0-98.0 [facility] Comment on above: Performed By: #### T SH5, HEMDF, LIPD2, CMP3 #### [facility] [address] [place] [address] Monocytes (Bld) [#/Vol] 0.8 10*3/uL Normal 0.0-0.8 [facility] Comment on above: Performed By: #### T SH5, HEMDF, LIPD2, CMP3 #### [facility] [address] [place] [address] Monocytes/100 WBC (Bld) 10.4 % High 2.0-10.0 [facility] Comment on above: Performed By: #### T SH5, HEMDF, LIPD2, CMP3 #### [facility] [address] [place] [address] Platelet mean volume (Bld) [Entitic vol] 8.5 fL Normal 7.4-10.4 [facility] Comment on above: Performed By: #### T SH5, HEMDF, LIPD2, CMP3 #### [facility] [address] [place] [address] Platelets (Bld) [#/Vol] 285 10*3/uL Normal 140-440 [facility] Comment on above: Performed By: #### T SH5, HEMDF, LIPD2, CMP3 #### [facility] [address] [place] [address] RBC (Bld) [#/Vol] 4.61 10*6/uL Normal 3.80-5.20 [facility] Comment on above: Performed By: #### T SH5, HEMDF, LIPD2, CMP3 #### [facility] [address] [place] [address] WBC (Bld) [#/Vol] 8.0 10*3/uL Normal 3.6-10.7 [facility] Comment on above: Performed By: #### T SH5, HEMDF, LIPD2, CMP3 #### [facility] [address] [place] [address] Hep B Surface Agon 9 Hep B Surface Ag NOT DETECTED Normal Not-Detected [facility] Comment on above: Performed By: #### H IV4, RPR, HBSAG #### [facility] [address] [place] [address] Lipid Panelon 01-12-2019 Cholesterol in HDL [Mass/Vol] 48 mg/dL Normal 40-60 [facility] Comment on above: Performed By: #### T SH5, HEMDF, LIPD2, CMP3 #### [facility] [address] [place] [address] Cholesterol.total/Ch olesterol in HDL [Mass ratio] 4 Normal [facility] Comment on above: Result Comment: Ref Range: < 3 Low Risk for CHD 3-6 Mod Risk for CHD > 6 High Risk for CHD Performed By: #### T SH5, HEMDF, LIPD2, CMP3 #### [facility] [address] [place] [address] Protein [Mass/Vol] 145 mg/dL Abnormal <100 [facility] Comment on above: Performed By: #### T SH5, HEMDF, LIPD2, CMP3 #### [facility] [address] [place] [address] Triglyceride [Mass/Vol] 93 mg/dL Normal <150 [facility] Comment on above: Performed By: #### T SH5, HEMDF, LIPD2, CMP3 #### [facility] [address] [place] [address] Cholesterol [Mass/Vol] 212 mg/dL Abnormal < 200 [facility] Comment on above: Performed By: #### T SH5, HEMDF, LIPD2, CMP3 #### [facility] [address] [place] [address] RPR, Qualon 01-12-2019 RPR, Qual NONREACTIVE Normal Non-Reactive [facility] Comment on above: Performed By: #### H IV4, RPR, HBSAG #### [facility] [address] [place] [address] Thyroid Stim. Hormoneon 12-21 Thyroid Stim. Hormone 0.677 u[IU]/mL Normal 0.465-4.680 [facility] Comment on above: Performed By: #### T SH5, HEMDF, LIPD2, CMP3 #### [facility] [address] [place] [address] XR ABDOMEN (2 VIEWS)on 11-27 Patient Name: LISA CHAUDHRY ---Diagnostic Radiology--- Exam Date/Time 11/27/2018 12:00:29 EDT Exam CR Abdomen 2 Views Complete Ordering Physician YANETH GRIGGS HEATHER M Accession Number [id number] CPT4 Codes 63979 () Reason For Exam flat plate abd; constipation Report EXAM TYPE: CR Abdomen 2 Views EXAM DATE AND TIME: 11/27/2018 12:00 PM EDT INDICATION: 38 years Female with constipation COMPARISON: 06/29/2017 TECHNIQUE: AP supine radiograph of the abdomen and pelvis was obtained. FINDINGS: The bowel gas pattern is unremarkable. Limited evaluation for free air or air-fluid levels on supine-only imaging. No abnormal soft tissue calcifications are seen. The visualized osseous structures are unremarkable. The visualized lung bases are unremarkable. IMPRESSION: Nonobstructive bowel gas pattern. If there is concern for an abdominopelvic process not seen radiographically, consider CT or ultrasound depending on the nature of the symptoms. Report Dictated on --- Final --- Dictated: 11/27/2018 2:24 pm Dictating Physician: MD LINDSAY NICHOLAS Signed Date and Time: 11/27/2018 2:26 pm Signed by: MD LINDSAY NICHOLAS Transcribed Date and Time: 11/27/2018 2:24 [facility] [place], [place], [facility] - 11/27/2018 2:28 PM EDT Patient Name: LISA CHAUDHRY ---Diagnostic Radiology--- Exam Date/Time 11/27/2018 12:00:29 EDT Exam CR Abdomen 2 Views Complete Ordering Physician YANETH GRIGGS HEATHER M Accession Number [id number] CPT4 Codes 59920 () Reason For Exam flat plate abd; constipation Report EXAM TYPE: CR Abdomen 2 Views EXAM DATE AND TIME: 11/27/2018 12:00 PM EDT INDICATION: 38 years Female with constipation COMPARISON: 06/29/2017 TECHNIQUE: AP supine radiograph of the abdomen and pelvis was obtained. FINDINGS: The bowel gas pattern is unremarkable. Limited evaluation for free air or air-fluid levels on supine-only imaging. No abnormal soft tissue calcifications are seen. The visualized osseous structures are unremarkable. The visualized lung bases are unremarkable. IMPRESSION: Nonobstructive bowel gas pattern. If there is concern for an abdominopelvic process not seen radiographically, consider CT or ultrasound depending on the nature of the symptoms. Report Dictated on --- Final --- Dictated: 11/27/2018 2:24 pm Dictating Physician: MD LINDSAY NICHOLAS Signed Date and Time: 11/27/2018 2:26 pm Signed by: MD LINDSAY NICHOLAS Transcribed Date and Time: 11/27/2018 2:24 [place] DUPLEX EXTREMITY VEINS CMPLT /BILATERALon 12-09-2017 DUPLEX EXTREMITY VEINS CMPLT/BILATERAL Name: LISA CHAUDHRY STUDY:DUPLEX EXTREMITY VEINS CMPLT/BILATERAL; 12/09/2017 4:03 pm INDICATION:Signs/Symptoms: ankle swelling and leg pain, no injury. COMPARISON:None. ORDERING CLINICIAN:MATT CASTILLO TECHNIQUE:Vascular ultrasound of the bilateral lower extremities was performed.Real-time compression views as well as Paez scale, color Doppler andspectral Doppler waveform analysis was performed. FINDINGS:Evaluation of the visualized portions of the bilateral common femoralvein, proximal, mid, and distal femoral vein, and popliteal vein wereperformed. Evaluation of the visualized portions of the calf veinswas also performed. The evaluated veins demonstrate normal compressibility. There isintact venous flow demonstrating normal respiratory variability andnormal augmentation of flow with calf compression. Therefore, thereis no ultrasonographic evidence for deep vein thrombosis within theevaluated veins. IMPRESSION:No sonographic evidence for deep vein thrombosis within the evaluatedveins of the lower extremities bilaterally.Electronically signed by: JACLYN CARNEY MD Normal [facility] HEPATITIS C GENOTYPEon 05-01 HEPATITIS C GENOTYPE 3a Normal [facility] Comment on above: Result Comment: The method used in this test is RT-PCR and reversehybridization (Line Probe) of the 5' UTR and coreregion of the HCV genome.This test was developed and its analytical performancecharacteristics have been determined by [facility], [place], [place]. It hasnot been cleared or approved by the U.S. Food and DrugAdministration. This assay has been validated pursuantto the CLIA regulations and is used for clinicalpurposes.For more information on this test, go [email or web address].[place]aki/faq/HCVGenotyping Performed By: #### C MP ####[facility] [place] [address] HCV FIBROSUREon 04-29-2017 ALPHA 2 MACROGLOB. 198 mg/dL Normal 110-276 [facility] Comment on above: Performed By: #### C MP ####[place] [id number] [place] [address] ALT[SGPT] P5P 31 IU/L Normal 0-40 [facility] Comment on above: Performed By: #### C MP ####[facility] [place] [address] ANALYSIS SEE BELOW Normal [facility] Comment on above: Performed By: #### C MP ####[id number] [place] [address] Apolipoprotein A-I mass conc 166 mg/dL Normal 116-209 [facility] Comment on above: Performed By: #### C MP ####[facility] [place] [address] Bilirubin mass conc 0.2 mg/dL Normal 0.0-1.2 [facility] Comment on above: Performed By: #### C MP ####[facility] [place] [address] COMMENT COMMENT Normal [facility] Comment on above: Result Comment: This test was developed and its performance characteristics determinedby [facility]. It has not been cleared or approved by the Food and DrugAdministration. The FDA has determined that such clearance orapproval is not necessary.For questions regarding this report please contact customer serviceat . Performed By: #### C MP ####[facility] [place] [address] FIBROSIS SCORE 0.07 Normal 0.00-0.21 [facility] Comment on above: Performed By: #### C MP ####[id number] [place] [address] FIBROSIS SCORING COMMENT Normal [facility] Comment on above: Result Comment: <0.2 1 = Stage F0 - No fibrosis0.21 - 0.27 = Stage F0 - F10.27 - 0.31 = Stage F1 - Portal fibrosis0.31 - 0.48 = Stage F1 - F20.48 - 0.58 = Stage F2 - Bridging fibrosis with few septa0.58 - 0.72 = Stage F3 - Bridging fibrosis with many septa0.72 - 0.74 = Stage F3 - F4 >0.74 = Stage F4 - Cirrhosis Performed By: #### C MP ####[facility] [place] [address] FIBROSIS STAGE COMMENT Normal [facility] Comment on above: Result Comment: F0 - No fibrosis Performed By: #### C MP ####[facility] [place] [address] GGT 29 IU/L Normal 0-60 [facility] Comment on above: Performed By: #### C MP ####[id number] [place] [address] HAPTOGLOBIN 82 mg/dL Normal 34-200 [facility] Comment on above: Performed By: #### C MP ####[id number] [place] [address] INTERPRETATION COMMENT Normal [facility] Comment on above: Result Comment: El titative results of 6 biochemical tests are analyzed usinga computational algorithm to provide a quantitative surrogatemarker (0.0-1.0) for liver fibrosis (METAVIR F0-F4) and fornecroinflammatory activity (METAVIR A0-A3). Performed By: #### C MP ####[facility] [place] [address] LIMITATIONS COMMENT Normal [facility] Comment on above: Result Comment: The negative predictive value of a Fibrotest score <0.31 (absence ofclinically significant fibrosis) was 85% when compared to liver biopsyin 1,270 HCV infected patients with a 38% prevalence of significantliver fibrosis (F2, 3 or 4). The positive predictive value of a Fibro-test score >0.48 (F2, 3, 4) was 61% in that same patient cohort. HCVFibroSURE is not recommended in patients with Gilbert Disease, acutehemolysis (e.g. HCV ribavirin therapy mediated hemolysis) acute hepa-titis of the liver, extra-hepatic cholestasis, transplant patients,and/or renal insufficiency patients. Any of these clinical situationsmay lead to inaccurate quantitative predictions of fibrosis andnecroinflammatory activity in the liver. Performed By: #### C MP ####[facility] [id number] NECROINFLAM.ACT.GRAD E A0-No activity Normal [facility] Comment on above: Performed By: #### C MP ####[facility] [place] [address] NECROINFLAM.ACT.SCOR E 0.11 Normal 0.00-0.17 [facility] Comment on above: Performed By: #### C MP ####[facility] [id number] NECROINFLAMM.ACT.SCO RING COMMENT Normal [facility] Comment on above: Result Comment: <0.1 7 = Grade A0 - No Activity0.17 - 0.29 = Grade A0 - A10.29 - 0.36 = Grade A1 - Minimal activity0.36 - 0.52 = Grade A1 - A20.52 - 0.60 = Grade A2 - Moderate activity0.60 - 0.62 = Grade A2 - A3 >0.62 = Grade A3 - Severe activity Performed By: #### C MP ####[id number] [place] [address] HCV PCR WITH GENOTYPE REFLEX on 04-28-2017 HCV RNA, PCR 8710 IU/mL Abnormal [facility] Comment on above: Result Comment: REF VALUENEGATIVE Performed By: #### H CVG1 ####[facility] [place] [address] HCV RNA,PCR, LOG 3.94 log10 IU/mL Abnormal [facility] Comment on above: Result Comment: HCV RNA BY PCR (VIRAL LOAD) IS PERFORMEDUSING THE AVA FRANSISCO AMPLIPREP/FRANSISCO TAQMANHCV TEST. THIS IS A TEST FOR THE QUANTITATIONOF HEPATITIS C VIRAL RNA IN HUMAN PLASMA ORSERUM USING THE AMPLIPREP INSTRUMENT FORAUTOMATED SPECIMEN PROCESSING AND Xolve ANALYZER FOR AUTOMATED AMPLIFICATIONAND DETECTION. SPECIMENS CONTAINING HCVGENOTYPES 1-6 HAVE BEEN VALIDATED FORQUANTITATION IN THE ASSAY. THE TEST CANQUANTITATE 15 TO 100,000,000 IU/ML OF HCV RNA.THIS TEST IS STANDARDIZED AGAINST THE FIRSTO INTERNATIONAL STANDARD FOR HEPATITIS CVIRUS RNA FOR NUCLEIC ACID AMPLIFICATIONTECHNOLOGY ASSAYS ([facility] CODE 96/790).THE TEST IS APPROVED BY THE US FOOD AND DRUGADMINISTRATION, AND IS INTENDED FOR USE INCONJUNCTION WITH CLINICAL PRESENTATION ANDOTHER LABORATORY MARKERS OF DISEASE PROGRESSFOR THE CLINICAL MANAGEMENT OF HCV INFECTEDPATIENTS. THIS TEST IS INTENDED FOR USE ROB IN THE MANAGEMENT OF HCV-INFECTEDINDIVIDUALS UNDERGOING ANTI-VIRAL THERAPY.THE ASSAY MEASURES HCV RNA LEVELS AT BASELINEAND DURING TREATMENT AND CAN BE UTILIZED TOPREDICT SUSTAINED AND NON-SUSTAINEDVIROLOGICAL RESPONSE TO HCV THERAPY. THERESULTS FROM THIS TEST MUST BE INTERPRETEDWITHIN THE CONTEXT OF ALL RELEVANT CLINICALAND LABORATORY FINDINGS. THE TEST IS NOTINTENDED FOR USE A SCREENING TEST FOR THEPRESENCE OF HCV IN BLOOD OR BLOOD PRODUCTS ORAS A DIAGNOSTIC TEST TO CONFIRM THE PRESENCEOF HCV INFECTION.THE PERFORMANCE CHARACTERISTICS OF THIS TESTHAVE BEEN VERIFIED BY THE MOLECULAR DIAGNOSTICSLABORATORY, [facility]. Performed By: #### H CVG1 ####[id number] [place] [address] ALCOHOL,URINEon 04-25-2017 ALCOHOL,URINE <10 Normal <20 [facility] Comment on above: Result Comment: Urin es containing sugars and contaminated with microorganisms may yield afalse positive result due to fermentation of sugar to alcohol. Performed By: #### A LCU ####[id number] [place] [address] CBCon 04-25-2017 Erythrocyte distribution width Auto Ratio (RBC) 13.1 % Normal 11.5 - 14.5 [facility] Comment on above: Performed By: #### C BC ####[id number] [place] [address] Hematocrit Auto Volume Fraction (Bld) 48.5 % High 36.0 - 46.0 [facility] Comment on above: Performed By: #### C BC ####[id number] [place] [address] Hemoglobin mass conc (Bld) 16.1 g/dL High 12.0 - 16.0 [facility] Comment on above: Performed By: #### C BC ####[facility] [place] [address] MCHC Auto mass conc (RBC) 33.2 g/dL Normal 32.0 - 36.0 [facility] Comment on above: Performed By: #### C BC ####[id number] [place] [address] MCV Auto Entitic volume (RBC) 98 fL Normal 80 - 100 [facility] Comment on above: Performed By: #### C BC ####[id number] [place] [address] Nucleated RBC/100 WBC Ratio (Bld) 0.0 /100 WBC Normal 0.0-0.0 [facility] Comment on above: Performed By: #### C BC ####[id number] [place] [address] Platelets Auto #/vol (Bld) 245 10*3/uL Normal 150 - 450 [facility] Comment on above: Performed By: #### C BC ####[id number] [place] [address] RBC Auto #/vol (Bld) 4.94 x10E12/L Normal 4.00 - 5.20 [facility] Comment on above: Performed By: #### C BC ####[id number] [place] [address] WBC Auto #/vol (Bld) 7.2 10*3/uL Normal 4.4 - 11.3 [facility] Comment on above: Performed By: #### C BC ####[id number] [place] [address] COMPREHENSIVE PANELon 2017 Albumin mass conc 4.9 g/dL Normal 3.4 - 5.0 [facility] Comment on above: Performed By: #### C MP ####[id number] [place] [address] ALP enzyme act/vol 66 U/L Normal 33 - 110 [facility] Comment on above: Performed By: #### C MP ####[id number] [place] [address] ALT enzyme act/vol 26 U/L Normal 7 - 45 [facility] Comment on above: Result Comment: Cat ents treated with Sulfasalazine may generate falsely decreased results for ALT. Performed By: #### C MP ####[id number] [place] [address] Anion gap 3 molar conc 11 mmol/L Normal 10 - 20 [facility] Comment on above: Performed By: #### C MP ####[facility] [place] [address] AST enzyme act/vol 24 U/L Normal 9 - 39 [facility] Comment on above: Performed By: #### C MP ####[facility] [place] [address] Bilirubin mass conc 0.3 mg/dL Normal 0.0 - 1.2 [facility] Comment on above: Performed By: #### C MP ####[facility] [place] [address] Calcium mass conc 10.7 mg/dL High 8.6 - 10.6 [facility] Comment on above: Performed By: #### C MP ####[id number] [place] [address] Chloride molar conc 105 mmol/L Normal 98 - 107 [facility] Comment on above: Performed By: #### C MP ####[facility] [place] [address] Creatinine mass conc 0.68 mg/dL Normal 0.50 - 1.05 [facility] Comment on above: Performed By: #### C MP ####[facility] [place] [address] GFR- AM. >60 Normal >60 [facility] Comment on above: Result Comment: CALC ULATIONS OF ESTIMATED GFR ARE PERFORMED USING THE MDRD STUDY EQUATION FOR THE IDMS-TRACEABLE CREATININE METHODS. CLIN CHEM 2007;53:766-72 Performed By: #### C MP ####[facility] [place] [address] GFR-NON AM. >60 Normal >60 [facility] Comment on above: Performed By: #### C MP ####[facility] [place] [address] Glucose mass conc 80 mg/dL Normal 74 - 99 [facility] Comment on above: Performed By: #### C MP ####[id number] [place] [address] HCO3 molar conc (Bld) 28 mmol/L Normal 21 - 32 [facility] Comment on above: Performed By: #### C MP ####[facility] [place] [address] Potassium molar conc 3.9 mmol/L Normal 3.5 - 5.3 [facility] Comment on above: Performed By: #### C MP ####[facility] [place] [address] Protein mass conc 8.7 g/dL High 6.4 - 8.2 [facility] Comment on above: Performed By: #### C MP ####[id number] [place] [address] Sodium molar conc 140 mmol/L Normal 136 - 145 [facility] Comment on above: Performed By: #### C MP ####[facility] [place] [address] Urea nitrogen mass conc 12 mg/dL Normal 6 - 23 [facility] Comment on above: Performed By: #### C MP ####[facility] [id number] DRUG SCREEN,URINEon 04-25-19 18 AMPHETAMINES Negative Normal NEGATIVE [facility] Comment on above: Result Comment: CUTO FF LEVEL: 500 NG/ML [place] [employer] drug: d-Methamphetamine Cross-reactivity has been reported with high concentrations of the following drugs: buproprion, chloroquine, chlorpromazine, ephedrine, mephentermine, fenfluramine, phentermine, phenylpropanolamine, pseudoephedrine, and propranolol. Performed By: #### D RUG3 ####[facility] [place] [address] BENZODIAZEPINES Negative Normal NEGATIVE [facility] Comment on above: Result Comment: CUTO FF LEVEL:200 NG/ML [place] [employer] drug: Lormetazepam Performed By: #### D RUG3 ####[facility] [place] [address] CANNABINOIDS Negative Normal NEGATIVE [facility] Comment on above: Result Comment: CUTO FF LEVEL:50 NG/ML [place] dru07-bik-iysey5-THC-9carboxylic acid Performed By: #### D RUG3 ####[facility] [place] [address] COCAINE METABOLITE Negative Normal NEGATIVE [facility] Comment on above: Result Comment: CUTO FF LEVEL: 150 NG/ML [place] drug: Benzoylecgonine(cocaine metabolite) Performed By: #### D RUG3 ####[facility] [id number] DRUG SCREEN COMMENT SEE BELOW Normal [facility] Comment on above: Result Comment: POSI TIVE CUTOFFS ARE BASED ON REACTIVITY WITH A DENTAL NURSE MEMBER OF DRUG CLASS. MEMBERS OF THE SAME CLASS OF DRUG MAY HAVE DIFFERING REACTIVITY WITH THE ASSAY AND THEREFORE MAY NEED TO BE PRESENT IN HIGHER CONCENTRATIONS TO GENERATE A POSITIVE RESULT. THESE TOXICOLOGY SCREENS PROVIDE UNCONFIRMED ANALYTICAL RESULTS SUITABLE FOR CLINICAL MANAGEMENT. A POSITIVE QUALITATIVE RESULT DOES NOT INDICATE OR MEASURE INTOXICATION. FOR QUANTITATIVE CONFIRMATORY TESTING OR PATHOLOGIST CONSULTATION, CALL LABORATORY AT [phone]. Performed By: #### D RUG3 ####[facility] [place] [address] METHADONE Negative Normal NEGATIVE [facility] Comment on above: Result Comment: CUTO FF LEVEL: 150 NG/ML [place] [employer] drug: Methadone The metabolite P-deugp-nrfqsrkendxpnp (LAAM) is not detected by this method in concentrations that would be found in the urine of patients on LAAM therapy. Performed By: #### D RUG3 ####[facility] [place] [address] OPIATES Negative Normal NEGATIVE [facility] Comment on above: Result Comment: CUTO FF LEVEL: 300 NG/ML [employer] Drug: Morphine This assay shows poor reactivity with synthetic opioids such as oxycodone and fentanyl. Cross-reactivity has been reported at high doses of meperidine. Performed By: #### D RUG3 ####[facility] [place] [address] OXYCODONE Negative Normal NEGATIVE [facility] Comment on above: Result Comment: CUTO FF LEVEL:100 NG/ML [place] [employer] drug: Oxycodone This test will accurately detect both oxycodone and oxymorphone. Performed By: #### D RUG3 ####[facility] [place] [address] PCP Negative Normal NEGATIVE [facility] Comment on above: Result Comment: CUTO FF LEVEL: 25 NG/ML [place] [employer] drug: Phencyclidine(PCP) Cross-reactivity has been reported with dextromethorphan. Performed By: #### D RUG3 ####[facility] [place] [address] URINE BARBITURATES Negative Normal NEGATIVE [facility] Comment on above: Result Comment: CUTO FF LEVEL:200 NG/ML [place] drug: Secobarbital Performed By: #### D RUG3 ####[facility] [id number] HEPATITIS A AB-TOTALon 04-25 HEPATITIS A AB-TOTAL NON-REACTIVE Normal NONREACTIVE [facility] Comment on above: Result Comment: Cat ents receiving more than 5 mg/day of biotin may have interference in test results. A sample should be taken no sooner than eight hours after previous dose. Contact [phone] for additional information. Performed By: #### H AVTO ####[facility] [place] [address] Lab Specimen Source Normal [facility] Comment on above: Performed By: #### H AVTO ####[facility] [place] [address] Performed By: #### H CVG1 ####[facility] [place] [address] Performed By: #### C MP ####[place] [id number] [place] [address] PT/INRon 04-25-2017 INR Coag RelTime (PPP) 1.0 {INR} Normal 0.9 - 1.1 [facility] Comment on above: Performed By: #### P TINR ####[facility] [place] [address] Prothrombin time (PT) Coag time (PPP) 10.9 s Normal 9.8 - 12.7 [facility] Comment on above: Performed By: #### P TINR ####[place] [id number] [place] [address] HCV RNA BY PCR [VIRAL LOAD]o n 03-24-2017 HCV RNA, PCR [id number] IU/mL Abnormal [facility] Comment on above: Result Comment: REF VALUENEGATIVE Performed By: #### H CVPR ####[facility] [place] [address] HCV RNA,PCR, LOG 5.79 log10 IU/mL Abnormal [facility] Comment on above: Result Comment: HCV RNA BY PCR (VIRAL LOAD) IS PERFORMEDUSING THE AVA FRANSISCO AMPLIPREP/FRANSISCO TAQMANHCV TEST. THIS IS A TEST FOR THE QUANTITATIONOF HEPATITIS C VIRAL RNA IN HUMAN PLASMA ORSERUM USING THE AMPLIPREP INSTRUMENT FORAUTOMATED SPECIMEN PROCESSING AND THETAQMAN ANALYZER FOR AUTOMATED AMPLIFICATIONAND DETECTION. SPECIMENS CONTAINING HCVGENOTYPES 1-6 HAVE BEEN VALIDATED FORQUANTITATION IN THE ASSAY. THE TEST CANQUANTITATE 15 TO 100,000,000 IU/ML OF HCV RNA.THIS TEST IS STANDARDIZED AGAINST THE FIRSTWHO INTERNATIONAL STANDARD FOR HEPATITIS CVIRUS RNA FOR NUCLEIC ACID AMPLIFICATIONTECHNOLOGY ASSAYS ([facility] CODE 96/790).THE TEST IS APPROVED BY THE [place] FOOD AND DRUGADMINISTRATION, AND IS INTENDED FOR USE INCONJUNCTION WITH CLINICAL PRESENTATION ANDOTHER LABORATORY MARKERS OF DISEASE PROGRESSFOR THE CLINICAL MANAGEMENT OF HCV INFECTEDPATIENTS. THIS TEST IS INTENDED FOR USE ROB IN THE MANAGEMENT OF HCV-INFECTEDINDIVIDUALS UNDERGOING ANTI-VIRAL THERAPY.THE ASSAY MEASURES HCV RNA LEVELS AT BASELINEAND DURING TREATMENT AND CAN BE UTILIZED TOPREDICT SUSTAINED AND NON-SUSTAINEDVIROLOGICAL RESPONSE TO HCV THERAPY. THERESULTS FROM THIS TEST MUST BE INTERPRETEDWITHIN THE CONTEXT OF ALL RELEVANT CLINICALAND LABORATORY FINDINGS. THE TEST IS NOTINTENDED FOR USE A SCREENING TEST FOR THEPRESENCE OF HCV IN BLOOD OR BLOOD PRODUCTS ORAS A DIAGNOSTIC TEST TO CONFIRM THE PRESENCEOF HCV INFECTION.THE PERFORMANCE CHARACTERISTICS OF THIS TESTHAVE BEEN VERIFIED BY THE MOLECULAR DIAGNOSTICSLABORATORY, [facility]. Performed By: #### H CVPR ####[facility] [place] [address] CBC AND DIFFERENTIALon 03-22 % AUTOMATED IMMATURE GRAN 0.4 % Normal 0.0 - 0.9 [facility] Comment on above: Result Comment: Perc ent differential counts (%) should be interpreted in the context of the absolute cell counts (cells/L). Performed By: #### C BCDF ####[id number] [place] [address] % NEUTROPHIL 47.7 % Normal 40.0 - 80.0 [facility] Comment on above: Performed By: #### C BCDF ####[facility] [place] [address] Basophils/100 WBC Auto (Bld) 0.05 x10E9/L Normal 0.00 - 0.10 [facility] Comment on above: Performed By: #### C BCDF ####[facility] [place] [address] Basophils/100 WBC Auto (Bld) 0.6 % Normal 0.0 - 2.0 [facility] Comment on above: Performed By: #### C BCDF ####[facility] [place] [address] Eosinophils Auto #/vol (Bld) 0.33 10*3/uL Normal 0.00 - 0.70 [facility] Comment on above: Performed By: #### C BCDF ####[facility] [place] [address] Eosinophils/100 WBC Auto (Bld) 4.2 % Normal 0.0 - 6.0 [facility] Comment on above: Performed By: #### C BCDF ####[facility] [place] [address] Erythrocyte distribution width Auto Ratio (RBC) 13.6 % Normal 11.5 - 14.5 [facility] Comment on above: Performed By: #### C BCDF ####[facility] [place] [address] Hematocrit Auto Volume Fraction (Bld) 46.6 % High 36.0 - 46.0 [facility] Comment on above: Performed By: #### C BCDF ####[facility] [place] [address] Hemoglobin mass conc (Bld) 15.5 g/dL Normal 12.0 - 16.0 [facility] Comment on above: Performed By: #### C BCDF ####[facility] [place] [address] Lymphocytes Auto #/vol (Bld) 2.78 10*3/uL Normal 1.20 - 4.80 [facility] Comment on above: Performed By: #### C BCDF ####[facility] [place] [address] Lymphocytes/100 WBC Auto (Bld) 35.7 % Normal 13.0 - 44.0 [facility] Comment on above: Performed By: #### C BCDF ####[facility] [place] [address] MCHC Auto mass conc (RBC) 33.3 g/dL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 Body height 172.72 cm Nicki Huston [employer] Work Phone: [facility] Work Phone: 12-15-2020 17:07-0400 Body mass index (BMI) [Ratio] 22.05 kg/m2 Nicki Huston [employer] Work Phone: [facility] Work Phone: 12-15-2020 17:07-0400 Body surface area Derived from formula 1.78 m2 Nicki Huston [employer] Work Phone: [facility] Work Phone: 12-15-2020 17:07-0400 Body temperature 98.4 [degF] Nicki Huston [employer] Work Phone: [facility] Work Phone: 12-15-2020 17:07-0400 Body weight 65.77 kg Nicki Huston [employer] Work Phone: [facility] Work Phone: 12-15-2020 17:07-0400 Diastolic blood pressure 85 mm[Hg] Nicki Huston [employer] Work Phone: [facility] Work Phone: 12-15-2020 17:07-0400 Heart rate 137 /min Nicki Huston [employer] Work Phone: [facility] Work Phone: 12-15-2020 17:07-0400 Respiratory rate 20 /min Nicki Huston [employer] Work Phone: [facility] Work Phone: 12-15-2020 17:07-0400 SaO2% (BldA) [Mass fraction] 98 % Nicki Huston [employer] Work Phone: [facility] Work Phone: 12-15-2020 17:07-0400 Systolic blood pressure 122 mm[Hg] Nicki Nguyen Work Phone: [facility] Work Phone: 12-15-2020 17:07-0400 8 1 Nicki Nguyen Work Phone: [facility] Work Phone: Comment on above: [employer] 08-12-2020 08:15-0400 Diastolic blood pressure 82 mm[Hg] Blanca Lindsey MD Work Phone: [facility] Work Phone: 08-12-2020 08:15-0400 Heart rate 71 /min Blanca Lindsey MD Work Phone: [facility] Work Phone: 08-12-2020 08:15-0400 Respiratory rate 19 /min Blanca Lindsey MD Work Phone: [facility] Work Phone: 08-12-2020 08:15-0400 SaO2% (BldA) [Mass fraction] 98 % Blanca Lindsey MD Work Phone: [facility] Work Phone: 08-12-2020 08:15-0400 Systolic blood pressure 122 mm[Hg] Blanca Lindsey MD Work Phone: [facility] Work Phone: 08-11-2020 16:30-0400 Body height 172.7 cm Blanca Lindsey MD Work Phone: [facility] Work Phone: 08-11-2020 16:30-0400 Body mass index (BMI) [Ratio] 19.77 kg/m2 Blanca Lindsey MD Work Phone: [facility] Work Phone: 08-11-2020 16:30-0400 Body temperature 98.1 [degF] Blanca Lindsey MD Work Phone: [facility] Work Phone: 08-11-2020 16:30-0400 Body weight 58.97 kg Blanca Lindsey MD Work Phone: [facility] Work Phone: 02-03-2019 08:51-0400 Body Temperature 98.1 [degF] [facility] [place] [place] [facility]-03-2019 08:49-0400 Pulse (Heart Rate) 101 /min [facility], [place] 02-03-2019 08:23-0400 BMI (Body Mass Index) 24.33 kg/m2 [facility] 02-03-2019 08:23-0400 Body weight 72.58 kg [facility] , [place] 02-03-2019 08:23-0400 BP Diastolic 74 mm[Hg] [facility] , [place] 02-03-2019 08:23-0400 BP Systolic 118 mm[Hg] [place], [place] 02-03-2019 08:23-0400 Height 172.7 cm [facility] , [place] 02-03-2019 08:23-0400 Pulse Oximetry 100 % [facility] , [place] 02-03-2019 08:23-0400 Respiratory Rate 18 /min [facility] [place] [place] 12-12-2018 00:39-0400 Body Temperature 98.2 [degF] [facility] [place] 12-12-2018 00:39-0400 BP Diastolic 78 mm[Hg] Nathan Clint [facility] , [place] 12-12-2018 00:39-0400 BP Systolic 121 mm[Hg] Nathan Clint [facility] , [place] 12-12-2018 00:39-0400 Pulse (Heart Rate) 88 /min Nathan Matakin [facility], [place] 12-12-2018 00:39-0400 Pulse Oximetry 100 % Nathan Clint [facility] , [place] 12-12-2018 00:39-0400 Respiratory Rate 18 /min [facility] 12-11-2018 22:47-0400 BMI (Body Mass Index) 24.18 kg/m2 [facility] 12-11-2018 22:47-0400 Body weight 72.12 kg [facility] 12-11-2018 22:47-0400 Height 172.7 cm [facility] [place] [place] Encounters Encounter Date Encounter Type Care Provider Facility Start: 08-27-2024 End: 08-27-2024 Telephone encounter Cassy Olmedo RN [facility] Comment on above: Colon Cancer Screeni ng Start: 08-25-2024 End: 08-25-2024 Telephone encounter Shante Worley MD Work Phone: [facility] Obstetrics and Gyne[facility] Start: 08-24-2024 End: 08-24-2024 Patient encounter procedure Shante Worley MD Work Phone: [facility] Start: 08-24-2024 End: 08-24-2024 Periodic preventive med est patient 40-64yrs Shante Worley MD Work Phone: [facility] Gynecology [facility] [employer] Comment on above: Well woman exam with routine gynecological exam (Primary Dx); Encounter for screening mammogram for malignant neoplasm of breast; control counseling; Vaginal discharge; Screen for STD (sexually transmitted disease); Screening for colon cancer; Family history of malignant neoplasm of breast Start: 08-24-2024 End: 08-24-2024 ambulatory [facility] Start: 08-24-2024 End: 08-24-2024 Encounter for gynecological examination (general) (routine) without abnormal findings SHANTE WORLEY [facility] Start: 08-20-2024 ambulatory [facility] Facility:[facility] Start: 07-30-2024 ambulatory [facility] Facility:[facility] Start: 06-23-2024 Non-patient / Non-visit Dr. Mario Potts MD -[facility] Start: 06-23-2024 End: 07-19-[address] Mario Potts MD -[facility] Work Phone: Start: 06-23-2024 End: 07-19-2024 ambulatory Noni Pablo MD Work Phone: [facility] Work Phone: Start: 06-02-2024 End: 06-02-2024 ambulatory NONI KELLYKE [facility] Start: 06-02-2024 End: 06-02-2024 Subsequent hospital visit by physician Shante Worley MD Work Phone: [facility] Comment on above: Encounter for screen ing mammogram for malignant neoplasm of breast Start: 04-20-2024 End: 07-20-2024 Transcribe Orders Shante Worley MD Work Phone: [facility] Obstetrics and Gynecology [facility] Comment on above: Encounter for screen ing mammogram for malignant neoplasm of breast (Primary Dx) Start: 03-26-2024 End: 03-30-2024 ambulatory PHYSICIAN NO [facility] Start: 03-24-2024 Critical care ill/injured patient init 30-74 min Hiwot Hoover CNP Work Phone: [facility] Start: 03-24-2024 End: 03-27-2024 Evaluation and management of inpatient Clarence Wynn MD Work Phone: [facility] Start: 12-28-2023 End: 12-28-2023 Emergency department [facility] Facility:[facility] Start: 12-23-2023 End: 12-23-2023 Emergency department patient visit [facility] Work Phone: Comment on above: Adjustment disorder, unspecified type (Primary Dx) Start: 09-24-2023 End: 09-25-2023 Telephone encounter Shante Worley MD Work Phone: [facility] Obstetrics & Gynecology Start: 06-18-2023 ambulatory CHUCKY SELF [facility] pallavi Start: 06-16-2023 End: 06-19-2023 ambulatory MITCHELL HANNON Facility:[facility] Start: 06-16-2023 Emergency department patient visit Facility:[facility] Start: 12-12-2022 End: 12-12-2022 Office outpatient visit 10 minutes Shante Worley MD Work Phone: [facility] Obstetrics & Gynecology Comment on above: Abnormal uterine ble eding (Primary Dx); Cervical dysplasia Start: 12-05-2022 Telephone encounter Raquel GARCIA [facility] Clinical Communication Start: 11-04-2022 ambulatory Sammy Gomez RN [facility] Start: 11-04-2022 Patient encounter procedure Sammy Gomez RN [facility] Start: 08-14-2022 End: 08-14-2022 Office outpatient visit 25 minutes Nieves Ron MD Work Phone: [facility] Comment on above: Abnormal uterine ble eding (AUB) (Primary Dx); Adnexal cyst Start: 07-31-2022 Non-patient / Non-visit DO Severo Hampton Work Phone: [facility] Start: 07-30-2022 End: 07-30-2022 ambulatory DO Konrad Hampton Work Phone: [facility] Work Phone: Start: 07-30-2022 End: 07-30-2022 Patient encounter procedure DO Konrad Hampton Work Phone: [facility]-Pulmonary Services/Neurology Start: 07-26-2022 End: 07-26-2022 Postop follow up visit related to original px Shante Worley MD Work Phone: [facility] Comment on above: Abnormal uterine ble eding (AUB) (Primary Dx); Atypical endometrial cells on Pap smear; Severe dysplasia of cervix (WESTON III); HPV (human papilloma virus) infection Start: 07-10-2022 End: 07-10-2022 Subsequent hospital visit by physician Shante Worley MD Work Phone: [facility] Comment on above: Dysplasia of cervix uteri, unspecified Start: 07-03-2022 End: 07-03-2022 Patient encounter procedure DO Konrad Hampton Work Phone: [facility] Start: 06-28-2022 End: 06-28-2022 Office outpatient visit 15 minutes Shante Worley MD Work Phone: [facility] Comment on above: Abnormal uterine ble eding (AUB) (Primary Dx); Atypical endometrial cells on Pap smear; Severe dysplasia of cervix (WESTON III) Start: 06-20-2022 End: 06-20-2022 ambulatory [facility] Work Phone: Start: 06-20-2022 End: 06-20-2022 Patient encounter procedure [facility] Start: 06-11-2022 Telephone encounter Shante wheeler MD Work Phone: [facility] Comment on above: Results (Test result s) Start: 06-10-2022 Telephone encounter Shante wheeler MD Work Phone: [facility] Comment on above: Surgery Scheduling Start: 06-07-2022 End: 06-07-2022 Patient encounter procedure Shante Worley MD Work Phone: [facility] Comment on above: Pre-procedural labor atory examinations (Primary Dx); Abnormal uterine bleeding (AUB); Atypical endometrial cells on Pap smear; ASCUS with positive high risk HPV cervical Start: 06-07-2022 End: 06-07-2022 Patient encounter status Shante Worley MD Work Phone: [facility] Start: 05-06-2022 End: 05-06-2022 Patient encounter procedure [facility] Ob Rm [address] [facility] Comment on above: Abnormal uterine ble eding (AUB) Start: 05-02-2022 End: 05-02-2022 Subsequent hospital visit by physician Shante Worley MD Work Phone: [facility] Comment on above: Encounter for screen ing mammogram for malignant neoplasm of breast Start: 04-24-2022 Telephone encounter Shante wheeler MD Work Phone: [facility] Comment on above: Surgery Scheduling Start: 04-23-2022 End: 04-23-2022 Office outpatient visit 15 minutes Shante Worley MD Work Phone: [facility] Comment on above: Abnormal uterine ble eding (Primary Dx); Severe dysplasia of cervix (WESTON III); Screening for cervical cancer; Encounter for screening mammogram for malignant neoplasm of breast Start: 12-19-2021 Office outpatient vi sit 15 minutes Elizabeth Tapia Work Phone: [facility] Work Phone: Start: 07-13-2021 Telephone encounter Elizabeth Tapia Work Phone: [facility] Work Phone: Start: 05-04-2021 Telephone encounter Elizabeth Tapia Work Phone: [facility] Work Phone: Start: 03-08-2021 Office outpatient vi sit 15 minutes Elizabeth Tapia Work Phone: [facility] DO Work Phone: Start: 03-08-2021 Patient encounter procedure Elizabeth Tapia Work Phone: [facility] DO Work Phone: Start: 02-28-2021 Telephone encounter Elizabeth Tapia Work Phone: [facility] Work Phone: Start: 01-30-2021 Office outpatient vi sit 25 minutes Elizabeth Tapia Work Phone: -[facility] Work Phone: Start: 12-15-2020 Office outpatient vi sit 15 minutes Nicki Huston Wendy [facility] Work [facility]: Start: 08-11-2020 End: 08-12-2020 Emergency department patient visit Blanca Lindsey MD Work Phone: [facility] Comment on above: Drug overdose, undet ermined intent, initial encounter (Primary Dx) Start: 02-03-2019 End: 02-03-2019 Emergency department patient visit Eddie Macario Work Phone: [facility] Emergency Dept Comment on above: Serum sickness due t o drug, initial encounter (Primary Dx); Vaccine reaction, initial encounter; Asthma without status asthmaticus or acute exacerbation Start: 01-21-2019 End: 01-21-2019 Subsequent hospital visit by physician Shante Worley Work Phone: [facility] Comment on above: Encounter for screen ing mammogram for malignant neoplasm of breast Start: 12-11-2018 End: 12-12-2018 Emergency department patient visit Nathan Dwyer Clint Work Phone: [facility] Emergency [facility] Comment on above: Viral upper respirat ory tract infection (Primary Dx); Asthmatic bronchitis; Body aches; Cigarette nicotine dependence with nicotine-induced disorder Start: 11-27-2018 End: 11-27-2018 Subsequent hospital visit by physician Estefania Griggs Work Phone: [facility] Comment on above: Constipation, unspec ified constipation type Start: 12-09-2017 Patient encounter MATT CASTILLO Facility:[facility] Start: 05-07-2017 Ambulatory PROVIDER UNKNOWN Facili ty:7 Start: 04-25-2017 Patient encounter Ajay posey Facility:[facility] Start: 01-10-2017 End: 01-15-2017 Evaluation and management of inpatient [facility] Start: 01-10-2017 End: 01-10-2017 Emergency department patient visit [facility] Procedures Date Procedure Procedure Detail Performing Clinician Start: 08-24-2024 SURESWAB(R) ADVANCED VAGINITIS PLUS, TMA (QUEST) Shante Worley MD Work Phone: Start: 08-24-2024 Urine test visual color cmprsn meths Shante Worley MD Work Phone: Start: 08-24-2024 Microscopic observat ion [Identifier] in Cervix by Cyto stain Cassy Olmedo RN Start: 06-23-2024 Anaerobic microbial culture Noni Pablo MD Work Phone: Start: 06-23-2024 Gram stain microscopy C gilbert Pablo MD Work Phone: Start: 06-23-2024 Microbial culture, routine Noni Pablo MD Work Phone: Start: 06-02-2024 End: 06-02-2024 Screening digital breast tomosynthesis bi Shante Worley MD Work Phone: Start: 03-27-2024 C-reactive protein Pratibha Wynn MD Work Phone: Start: 03-27-2024 Comprehensive metabo lic panel Clarence Wynn MD Work Phone: Start: 03-27-2024 Glucose measurement Abiodun Wynn MD Work Phone: Start: 03-26-2024 Echo tthrc r-t 2d w/wom-mode compl spec&colr d Clarence Wynn MD Work Phone: Start: 03-26-2024 Ct abdomen & pelvis w/contrast material Clarence Wynn MD Work Phone: Start: 03-26-2024 Ct thorax w/contrast material Clarence Wynn MD Work Phone: Start: 03-26-2024 Iadna s aureus methi cillin resist amp probe tq Lisa Sarmiento R.Ph. Start: 03-26-2024 Comprehensive metabo lic panel Clarence Wynn MD Work Phone: Start: 03-26-2024 Drug screen quantita tive vancomycin Lisa Sarmiento R.Ph. Start: 03-26-2024 MG TOP Clarence mcdowell MD Work Phone: Start: 03-26-2024 LIGHT GREEN TOP Clarence Wynn MD Work Phone: Start: 03-26-2024 RAINBOW DRAW Clarence mcdowell MD Work Phone: Start: 03-25-2024 End: 03-25-2024 Assay of lactate Clarence Wynn MD Work Phone: Start: 03-25-2024 LIGHT GREEN TOP Clarence Wynn MD Work Phone: Start: 03-25-2024 RAINBOW DRAW Clarence mcdowell MD Work Phone: Start: 03-25-2024 End: 03-25-2024 Culture bacterial blood aerobic w/id isolates Clarence Wynn MD Work Phone: Start: 03-25-2024 Basic metabolic pane l calcium total Clarence Wynn MD Work Phone: Start: 03-25-2024 C-reactive protein Pratibha Wynn MD Work Phone: Start: 03-25-2024 End: 03-25-2024 Basic metabolic panel calcium total Yohan Alycheo De La Garza [employer] Work Phone: Start: 03-24-2024 Electrocardiogram Florian Wynn MD Work Phone: Start: 03-24-2024 Ct head/brain w/o co ntrast material Hiwot Hoover [employer] Work Phone: Start: 03-24-2024 Assay of ammonia Mirtha Hoover [employer] Work Phone: Start: 03-24-2024 Gases blood ph direc t jax xcpt pulse oximitry Hiwot Hoover [employer] Work Phone: Start: 03-24-2024 LIGHT GREEN TOP Hiwot Tha Hoover [facility] Work Phone: Start: 03-24-2024 RAINBOW DRAW Hiwot Tha Sneha [facility] Work Phone: Start: 03-24-2024 Culture bacterial quanttative colony count urine Hiwot Tha Hoover [facility] Work Phone: Start: 03-24-2024 Drug tst prsmv instr mnt chem analyzers pr date Hwiot ValentineRubin Sneha [facility] Work Phone: Start: 03-24-2024 Ecg routine ecg w/le ast 12 lds trcg only w/o i&r Hiwot Hoover [facility] Work Phone: Start: 03-24-2024 Radiologic exam ches t single view Hiwot Hoover [facility] Work Phone: Start: 03-24-2024 Blood ethanol measurement Hiwot Hoover [facility] Work Phone: Start: 03-24-2024 Comprehensive metabo lic panel Hiwotdonna Hoover [facility] Work Phone: Start: 03-24-2024 LAVENDER TOP Hiwot Hoover [facility] Work Phone: Start: 03-24-2024 LIGHT BLUE TOP Hiwot Tha Hoover [facility] Work Phone: Start: 03-24-2024 LIGHT GREEN TOP Hiwot Hoover [facility] Work Phone: Start: 03-24-2024 MINT GREEN TOP Hiwot Tha Hoover [facility] Work Phone: Start: 03-24-2024 RAINBOW DRAW Hiwot Hoover [facility] Work Phone: Start: 03-24-2024 Glucose measurement [facility] Start: 11-07-2022 Microscopic observat ion [Identifier] in Cervix by Cyto stain Raquel Kirkland LPN Start: 07-10-2022 End: 07-10-2022 Conization cervix w/wo d&c rpr eltrd exc Shante Worley MD Work Phone: Start: 07-10-2022 Blood count complete automated Shante Worley MD Work Phone: Start: 07-10-2022 Urine test visual color cmprsn meths Jesus Mann MD Work Phone: Start: 06-28-2022 Urine test visual color cmprsn meths Shante Worley MD Work Phone: Start: 06-07-2022 Urine test visual color cmprsn meths Shante Worley MD Work Phone: Start: 05-06-2022 Us transvaginal Shante Worley MD Work Phone: Start: 05-02-2022 End: 05-02-2022 Mammography Shante Worley MD Work Phone: Start: 04-23-2022 Microscopic observat ion [Identifier] in Cervix by Cyto stain Shante Worley MD Work Phone: Start: 05-29-2021 Microscopic observat ion [Identifier] in Cervix by Cyto stain Shante Worley MD Work Phone: Start: 08-11-2020 Urine test visual color cmprsn meths Pamela Cliffasan PA-C Work Phone: Start: 08-11-2020 Assay of acetaminophen Pamela Ghimbasan PA-C Work Phone: Start: 08-11-2020 Assay of ethanol Madali na Ghimbasan PA-C Work Phone: Start: 08-11-2020 Assay of salicylate Mad toy Ghimbasan PA-C Work Phone: Start: 08-11-2020 Basic metabolic pane l calcium total Pamela Ivannaimbasan PA-C Work Phone: Start: 08-11-2020 Drug screen class list a Pamela Ghimbasan PA-C Work Phone: Start: 08-11-2020 Drug tst prsmv instr mnt chem analyzers pr date Pamela Lopez PA-C Work Phone: Start: 08-11-2020 Urnls dip stick/tabl et rgnt auto w/o microscopy Pamela Lopez PA-C Work Phone: Start: 08-11-2020 Ecg routine ecg w/le ast 12 lds w/i&r Pamela [email or web address] Work Phone: Start: 01-21-2019 Screening digital br east tomosynthesis bi Shante Marcella Worley Work Phone: Start: 11-27-2018 Radiologic exam abdo men 2 views Estefania Griggs Work Phone: Dilation And Curettage Nicki Nguyen Work Phone: H/O: surgery History of D&C Noni Espino Work Phone: H/O: surgery History of D&C Dr. Mario rajan MD History of tonsillectomy History of tonsillectomy Noni Pablo MD Work Phone: History of tonsillectomy History of tonsillectomy Dr. Mario Potts MD Pap smear for cervic al cancer screening Nicki Nguyen Work Phone: Comment on above: Jan 2011; Sinus Surgery Nicki Nguyen Work Phone: Tonsillectomy Elizabeth peguero Work Phone: Plan of Treatment Date Care Activity Detail Author Start: 2054 RSV Immunization for Adults (1 - 1-dose 75+ series) RSV Immunization for Adults (1 - 1-dose 75+ series) [facility] Start: 2039 RSV Immunization age d 60 or older (1 - 1-dose 60+ series) RSV Immunization aged 60 or older (1 - 1-dose 60+ series) [facility] Start: 08-24-2029 Screening for malign ant neoplasm of cervix [facility] Start: 2029 Zoster Vaccines (1 of 2) Zoste r Vaccines (1 of 2) [facility] Start: 02-01-2029 DTaP/Tdap/Td vaccine (2 - Td) DTaP/Tdap/Td vaccine (2 - Td) [facility] Work Phone: Start: 02-01-2029 DTaP/Tdap/Td Vaccine s (2 - Td or Tdap) DTaP/Tdap/Td Vaccines (2 - Td or Tdap) [facility] Start: 11-08-2027 Screening for malign ant neoplasm of cervix [facility] Start: 08-25-2027 Screening for malign ant neoplasm of cervix Pap Smear [facility] Start: 04-23-2027 Screening for malign ant neoplasm of cervix [facility] Start: 05-29-2026 Screening for malign ant neoplasm of cervix [facility] Start: 11-07-2025 Screening for malign ant neoplasm of cervix [facility] Start: 06-02-2025 Screening for malign ant neoplasm of breast Mammogram [facility] Start: 04-23-2025 Screening for malign ant neoplasm of cervix Pap Smear [facility] Start: 12-20-2024 Influenza vaccination Influenz a Vaccine (Season Ended) [facility] Start: 08-24-2024 End: 10-24-2025 DBT Breast - bilateral screening Bilateral screening mammogram with tomosynthesis Imaging Routine Encounter for screening mammogram for malignant neoplasm of breast Expected: 08/24/2024, Expires: 10/24/2025 [facility] Comment on above: Expected: 08/24/2024 , Expires: 10/24/2025 Start: 08-24-2024 End: 08-24-2025 Hepatitis B virus surface Ag [Presence] in Serum or Plasma by Immunoassay Hepatitis B surface antigen Lab Routine Screen for STD (sexually transmitted disease) Expected: 08/24/2024 (Approximate), Expires: 08/24/2025 [facility] Work Phone: Comment on above: Expected: 08/24/2024 (Approximate), Expires: 08/24/2025 Start: 08-24-2024 End: 08-24-2025 Hepatitis C virus Ab [Presence] in Serum or Plasma by Immunoassay Hepatitis C antibody Lab Routine Screen for STD (sexually transmitted disease) Expected: 08/24/2024 (Approximate), Expires: 08/24/2025 [facility] Comment on above: Expected: 08/24/2024 (Approximate), Expires: 08/24/2025 Start: 08-24-2024 End: 08-24-2025 HIV 1+2 Ab+HIV1 p24 Ag [Presence] in Serum or Plasma by Immunoassay HIV-1 and HIV-2 Antigen-Antibody Screen Lab Routine Screen for STD (sexually transmitted disease) Expected: 08/24/2024 (Approximate), Expires: 08/24/2025 [facility] Comment on above: Expected: 08/24/2024 (Approximate), Expires: 08/24/2025 Start: 08-24-2024 End: 08-24-2025 Reagin Ab [Presence] in Serum by RPR RPR Lab Routine Screen for STD (sexually transmitted disease) Expected: 08/24/2024 (Approximate), Expires: 08/24/2025 [facility] Comment on above: Expected: 08/24/2024 (Approximate), Expires: 08/24/2025 Start: 06-25-2024 End: 06-25-2024 Patient encounter procedure 06/25/2024 8:45 AM EST Office Visit [facility] Obstetrics [facility] Gynecology - [place] [address] [place] [address] Shante Worley MD [address] [place], [place] [id number] [facility] [place] Start: 05-29-2024 Screening for malign ant neoplasm of cervix Pap Smear [facility] Start: 01-13-2024 Lipid panel Lipid screen [facility] Work Phone: Start: 12-21-2023 COVID-19 Vaccine () COVID[facility]19 Vaccine [facility] Start: 12-21-2023 COVID-19 Vaccine () COVID-19 Vaccine () [facility] Start: 12-21-2023 Influenza vaccination Influenza Vacc ine (#1) [facility] Start: 05-02-2023 Screening for malign ant neoplasm of breast Mammogram [facility] Start: 01-31-2023 End: 01-31-2023 Patient encounter procedure [facility] Start: 12-20-2022 COVID-19 Vaccine ( season) COVID-19 Vaccine () [facility] Start: 12-20-2022 Influenza vaccination [facility] Start: 12-12-2022 End: 12-12-2022 Telemedicine consultation with patient 12/12/2022 8:45 AM EDT Telemedicine [facility] Obstetrics & Gynecology [address] [place] [id number] Shante Worley MD [address] [place], [place] [address] [facility]etric[facility] Start: 11-07-2022 End: 11-07-2022 Patient encounter procedure 11/07/2022 9:15 AM EDT Office Visit [facility] Obstetrics & Gynecology [address] [place] [address] Shante Worley MD [address] [place] [id number] [facility]etric[facility] Start: 10-04-2022 End: 10-04-2022 Patient encounter procedure 10/04/2022 Office Visit Obstetrics and Gynecology Shante Worley MD [address] [place] [address] [facility] Start: 09-27-2022 End: 09-27-2022 Patient encounter procedure 09/27/2022 Procedure Visit Obstetrics and Gynecology [facility] Start: 08-14-2022 End: 08-15-2023 US Pelvis US pelvis Imaging Routine Abnormal uterine bleeding (AUB) Adnexal cyst Expected: 08/14/2022, Expires: 08/15/2023 [facility] Work Phone: Comment on above: Expected: 08/14/2022 , Expires: 08/15/2023 Start: 07-25-2022 End: 07-25-2022 Patient encounter procedure 07/25/2022 Office Visit Obstetrics and Gynecology Shante Worley MD [address] [place] [id number] [facility] Start: 07-10-2022 End: 07-10-2022 Admission to same day surgery center [facility] MA[facility] OR Comment on above: LEEP,HYSTEROSCOPY, D ILATION AND CURETTAGE [32275 (CPT )] LEEP [96743 (CPT )] Start: 07-10-2022 End: 07-10-2022 Conization cervix w/wo d&c rpr eltrd exc CONIZATION OF CERVIX LOOP ELECTRODE EXCISION Dysplasia of cervix uteri, unspecified 07/10/2022 3:00 PM EDT [facility] Operating Room Start: 07-10-2022 End: 07-10-2022 Hysteroscopy bx endometrium&/polypc w/wo d&c HYSTEROSCOPY BIOPSY ENDOMETRIUM AND OR POLYPECTOMY Dysplasia of cervix uteri, unspecified 07/10/2022 3:00 PM EDT [facility] Operating Room Start: 07-10-2022 Subsequent hospital visit by physician 07/10/2022 Hospital Encounter Procedural Shante Worley MD [address] [place] [place] [address] [facility] Start: 07-04-2022 End: 07-04-2022 Admission to [facility] Pre-Admit Testing Start: 06-28-2022 End: 06-28-2022 Patient encounter procedure 06/28/2022 Office Visit Obstetrics and Gynecology Shante Worley MD [address] [place] [place] [address] [facility] Start: 06-07-2022 End: 06-07-2023 Colposcopy Colposcopy Procedures Routine ASCUS with positive high risk HPV cervical Expected: 06/07/2022 (Approximate), Expires: 06/07/2023 [facility] Comment on above: Expected: 06/07/2022 (Approximate), Expires: 06/07/2023 Start: 06-07-2022 End: 06-07-2022 Patient encounter procedure 06/07/2022 Procedure Visit Obstetrics and Gynecology Shante Worley MD [address] [place] [address], [address] [place] [address] [facility] Start: 05-06-2022 End: 05-06-2022 Patient encounter procedure 05/06/2022 Procedure Visit Obstetrics and Gynecology [facility] Start: 05-03-2022 End: 05-03-2022 Patient encounter procedure 05/03/2022 Procedure Visit Obstetrics and Gynecology [facility] Start: 05-02-2022 End: 05-02-2022 Patient encounter procedure 05/02/2022 Appointment Radiology [facility] Start: 04-23-2022 End: 06-22-2023 DBT Breast - bilateral screening Bilateral screening mammogram with tomosynthesis Imaging Routine Encounter for screening mammogram for malignant neoplasm of breast Expected: 04/23/2022, Expires: 06/22/2023 [facility] Work Phone: Comment on above: Expected: 04/23/2022 , Expires: 06/22/2023 Start: 04-23-2022 End: 04-23-2023 Follicle stimulating hormone Follicle stimulating hormone Lab Routine Abnormal uterine bleeding Expected: 04/23/2022 (Approximate), Expires: 04/23/2023 [facility] Comment on above: Expected: 04/23/2022 (Approximate), Expires: 04/23/2023 Start: 04-23-2022 End: 04-23-2023 hCG, quantitative, hCG, quantitative, Lab Routine Abnormal uterine bleeding Expected: 04/23/2022 (Approximate), Expires: 04/23/2023 [facility] Comment on above: Expected: 04/23/2022 (Approximate), Expires: 04/23/2023 Start: 04-23-2022 End: 04-23-2023 Prolactin Prolactin Lab Routine Abnormal uterine bleeding Expected: 04/23/2022 (Approximate), Expires: 04/23/2023 [facility] Comment on above: Expected: 04/23/2022 (Approximate), Expires: 04/23/2023 Start: 04-23-2022 End: 04-23-2023 Thyrotropin [Units/volume] in Serum or Plasma TSH Lab Routine Abnormal uterine bleeding Expected: 04/23/2022 (Approximate), Expires: 04/23/2023 [facility] Comment on above: Expected: 04/23/2022 (Approximate), Expires: 04/23/2023 Start: 12-20-2021 Influenza vaccination Influenza Vacc ine (#1) [facility] Start: 08-12-2021 COVID-19 Vaccine (3 - Booster for Pfizer series) COVID-19 Vaccine (3 - Booster for Pfizer series) [facility] Start: 08-01-2021 Cervical cancer screen Cervical canc er screen [place] Start: 08-01-2021 Screening for malign ant neoplasm of cervix Cervical cancer screen [facility] Work Phone: Start: 12-20-2020 Influenza vaccination Flu vacc ine (Season Ended) [facility] Work Phone: Start: 02-02-2020 Pneumococcal Vaccine : Pediatrics (0 to 5 Years) and At-Risk Patients (6 to 49 Years) (2 of 2 - PCV) Pneumococcal Vaccine: Pediatrics (0 to 5 Years) and At-Risk Patients (6 to 49 Years) (2 of 2 - PCV) [facility] Start: 02-02-2020 Pneumococcal Vaccine : Pediatrics (0 to 5 Years) and At-Risk Patients (6 to 64 Years) (2 - PCV) Pneumococcal Vaccine: Pediatrics (0 to 5 Years) and At-Risk Patients (6 to 64 Years) (2 - PCV) [facility] Start: 02-02-2020 Pneumococcal Vaccine : Pediatrics (0 to 5 Years) and At-Risk Patients (6 to 64 Years) (2 of 2 - PCV) Pneumococcal Vaccine: Pediatrics (0 to 5 Years) and At-Risk Patients (6 to 64 Years) (2 of 2 - PCV) [facility] Start: 03-30-2019 End: 03-30-2019 Office Visit 03/30/2019 Office Visit Obstetrics and Gynecology Shante Worley MD [address] [place] [address] [phone] [facility] Start: 2019 Screening for malign ant neoplasm of breast Mammogram [facility] Start: 01-28-2019 Influenza vaccination Flu vaccine (# 1) [place] Comment on above: Postponed from 12/20 (Patient Refused) Start: 01-05-2019 End: 01-05-2019 Office Visit 01/05/2019 Office Visit Obstetrics and Gynecology Shante Worley MD [address] [place], [place] [id number] [facility] Start: 12-28-2018 End: 12-28-2018 Office Visit 12/28/2018 Office Visit Family Medicine Estefania Griggs, JUNIOR DATA ANALYST - [employer] [address] [place] [address] [phone] [facility] Start: 12-20-2018 Influenza vaccination Flu vaccine (# 1) [place] Start: 2000 Screening for malign ant neoplasm of cervix [facility] Start: 1998 DTaP/Tdap/Td vaccine (1 - Tdap) DTaP/Tdap/Td vaccine (1 - Tdap) [place] Start: 1998 Hepatitis A Vaccines (1 of 2 - Risk 2-dose series) Hepatitis A Vaccines (1 of 2 - Risk 2-dose series) [facility] Start: 1998 Hepatitis B vaccine (1 of 3 - Risk 3-dose series) Hepatitis B vaccine (1 of 3 - Risk 3-dose series) [facility] Work Phone: Start: 1998 Hepatitis B Vaccines (1 of 3 - 19+ 3-dose series) Hepatitis B Vaccines (1 of 3 - 19+ 3-dose series) [facility] Start: 1997 Diabetes mellitus screening Diabetes Screening [facility] Start: 1995 COVID-19 Vaccine (1) COVID-19 Vaccin e (1) [facility] Work Phone: Start: 1991 Depression Monitoring Depression Mon augustus [facility] Start: 1991 Depression Screening Depression Scre ennanci [facility] Start: 1985 Pneumococcal 0-64 ye ars Vaccine (1 of 1 - PPSV23) Pneumococcal 0-64 years Vaccine (1 of 1 - PPSV23) [place] Start: 1980 Hepatitis A Vaccines (1 of 2 - Risk 2-dose series) Hepatitis A Vaccines (1 of 2 - Risk 2-dose series) [facility] Start: 1980 MMR Vaccines (1 of 1 - Standard series) MMR Vaccines (1 of 1 - Standard series) [facility] Start: 1979 Hepatitis B Vaccines (1 of 3 - 3-dose series) Hepatitis B Vaccines (1 of 3 - 3-dose series) [facility] Start: 1979 HIV screening HIV Screening [facility] Start: 1979 Lipid panel Lipid Panel [facility] Start: 1979 Screening for malign ant neoplasm of colon [facility] Start: 1979 Yearly Adult Physical Yearly Adult P [facility] Bacteria identified in Blood by Culture [facility] Work Phone: Biopsy endometrium Biopsy endome trium Procedures Routine Abnormal uterine bleeding (AUB) Atypical endometrial cells on Pap smear Ordered: 06/07/2022 [facility] Comment on above: Ordered: 06/07/2022 C reactive protein [Mass/volume] in Serum or Plasma [facility] CBC W Auto Different ial panel - Blood [facility] Comprehensive metabo lic 2000 panel - Serum or Plasma [facility] Cytology Cervical or vaginal smear or scraping study Pap Smear Pathology and Cytology Routine Severe dysplasia of cervix (WESTON III) Screening for cervical cancer 04/23/2022 12:19 PM EST [facility] Cytology Cervical or vaginal smear or scraping study Pap Smear Pathology and Cytology Routine Well woman exam with routine gynecological exam 08/24/2024 12:22 PM EDT [facility] EKG 12 Lead - Chest Pain EKG 12 Lead - Chest Pain ECG STAT 08/11/2020 5:25 PM EDT [facility] Work Phone: EMPOWER MULTI-CANCER (2 + 38) EMPOWER MULTI-CANCER (2 + 38) Lab Routine Family history of malignant neoplasm of breast 08/24/2024 11:04 AM EDT [facility] Erythrocyte sedimentation rate [facility] Hepatitis C virus genotype [Identifier] in Blood by CHANDANA with probe detection [facility] HPV High Risk PCR HPV High Risk PCR Microbiology Routine Severe dysplasia of cervix (WESTON III) Screening for cervical cancer 04/23/2022 12:19 PM EST [facility] HPV High Risk PCR HPV High Risk PCR Microbiology Routine Well woman exam with routine gynecological exam 08/24/2024 12:22 PM EDT [facility] Patient referral [facility] Work Phone: PCR for Hepatitis C [facility] Procedure [facility] Procedure [facility] Procedure [facility] SURESWAB(R) ADVANCED VAGINITIS PLUS, TMA ([facility]) Sureswab(R) Advanced Vaginitis Plus, TMA ([facility]) Lab Routine Abnormal uterine bleeding (AUB) Ordered: 06/07/2022 [facility] Comment on above: Ordered: 06/07/2022 Tissue exam [facility] stem Work Phone: Comment on above: Release Upon Orderin g for 1 Occurrences starting 07/10/2022 Tissue exam Tissue exam Path ology and Cytology Routine Atypical endometrial cells on Pap smear ASCUS with positive high risk HPV cervical Ordered: 06/07/2022 [facility] Work Phone: Comment on above: Ordered: 06/07/2022 [facility] Immunizations Immunization Date Immunization Notes Care Provider Laura harper 06-17-2021 Covid-19, Pfizer Gra y Top, Do Not Dilute, (Age 12 Y+), Im, L Shante Worley MD Work Phone: [facility] 11-03-2020 Pfizer-BioNTech COVI D-19 Vacc 30 MCG/0.3ML Intramuscular Suspension Elizabeth Tapia Work Phone: [facility] 10-24-2020 Pfizer-BioNTech COVI D-19 Vacc 30 MCG/0.3ML Intramuscular Suspension Elizabeth Tapia Work Phone: [facility] Work Phone: Comment on above: Series: 10-01-2020 Pfizer-BioNTech COVI D-19 Vacc 30 MCG/0.3ML Intramuscular Suspension Elizabeth Tapia Work Phone: [facility] 02-01-2019 pneumococcal polysaccharide vaccine, 23 valent Blanca Lindsey MD Work Phone: [facility] 02-01-2019 Seasonal, quadrivale nt, recombinant, injectable influenza vaccine, preservative free Blanca Lindsey MD Work Phone: [facility] 02-01-2019 tetanus toxoid, redu mahin diphtheria toxoid, and acellular pertussis vaccine, adsorbed Blanca Lindsey MD Work Phone: [facility] 02-01-2019 influenza virus vacc ine, unspecified formulation Shante Worley MD Work Phone: [facility] 02-24-2018 influenza virus vacc ine, unspecified formulation Blanca Lindsey MD Work Phone: [facility] Work Phone: 02-24-2018 influenza, injectabl e, quadrivalent, preservative free [facility] 01-02-2017 Influenza Vaccine, unspecified formulation [facility] [place] 01-02-2017 influenza virus vacc ine, unspecified formulation Nicki Nguyen Work Phone[facility] Work Phone: Comment on above: Series: 02-08-2013 Influenza virus vaccine W [facility] 02-10-2012 pneumococcal vaccine , unspecified formulation [facility] Pfizer-BioNTech COVI D-19 Vacc 30 MCG/0.3ML Intramuscular Suspension Elizabeth Tapia Work Phone: [facility] Work Phone: Comment on above: 09/21/20 Series: Payers Date Payer Category Payer Medicaid HMO [employer] [id number] 2023 Self-pay 2023 Medicaid [id number] 2023 Blue Cross Blue Shie ld (Indemnity or Managed Care) - Out of State BCBS OUT OF STATE [facility] [id number] 2023 Unknown 2023 Unknown [id number] 2020 Medicaid [id number] 2019 Unknown [employer] [id number] 2019-Present [phone] [address] [place] [address] [id number] 2016 Private Health Insurance [facility] xxxxxxxxx 2016-Present [phone] [address] [place] [address] xxxxxxxxx [id number] 1979 Unknown [id number] 1979 Unknown [id number] 1979 Unknown [id number] Private Health Insurance [id number] Unknown [id number] Unknown [id number] Unknown [id number] Unknown 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; 2 cups per day; Start: 12-11-2018 End: 07-10-2022 Alcohol intake No [facility] Start: 07-09-2018 Tobacco Comment pt also vapes [place] Start: 1980 Sex Assigned At Not on file M [place] Start: 01-11-2019 End: 02-03-2019 Tobacco smoking status TXIS Former sm[place] End: 12-28-2018 History of tobacco use Current sm[place] Start: 08-20-2003 End: 12-28-2018 History of tobacco use Cigarette Sm[place] Start: 01-11-2019 History SDOH Financial 5 [place] Start: 01-11-2019 History SDOH Food Worry 1 [place] Start: 01-11-2019 End: 07-10-2022 History SDOH Transport Med 2 [place] Start: 04-06-2020 End: 06-02-2024 Tobacco use and exposure Never used [facility] Start: 04-06-2020 End: 08-24-2024 Alcohol intake Current non-drinker of alcohol (finding) [facility] Work Phone: Start: 04-13-2022 End: 12-24-2023 Exposure to SARS-CoV-2 (event) Not sure [facility] Start: 04-27-2014 End: 04-27-2014 Tobacco smoking status NHIS Unknown if ever smoked [facility] Start: 07-22-2013 Occasional [facility] Start: 06-20-2022 None [facility] Start: 07-22-2013 Cigarettes [facility] Start: 1980 Sex Assigned At Female W [facility] Within the last year , have you been afraid of your partner or ex-partner? No [facility] In the past 12 month s, has lack of transportation kept you from medical appointments or from getting medications? No [facility] Start: 02-07-2022 Gender identity Identifies as female gender (finding) [facility] Start: 02-07-2022 Sexual orientation Heterosexua l (finding) [facility] Start: 03-24-2024 Alcoholic beverage intake Ex-drinker (finding) [facility] (I/We) worried wheth er (my/our) food would run out before (I/we) got money to buy more. Never true [facility] Start: 03-24-2024 Sexual orientation Choose not to disclose [facility] Start: 11-19-2021 End: 07-20-2024 Sex Female (finding) [facility] NEGATED: Highlighted row Denies Alcohol Use (History) Denies Alcohol Use (History) [facility] Work Phone: Comment on above: glass of wine X3 per week; Goals Date Patient Goal Desired Activity /State Comment on above: Pt would like to los e 20 lbs Barriers: time constraints Plan for overcoming my barriers: increase exercise to 4 x week Confidence: 810 Anticipated Goal Completion Date: 01/12/20 Formatting of this n ote might be different from the original. Pt would like to lose 20 lbs Barriers: time constraints Plan for overcoming my barriers: increase exercise to 4 x week Confidence: 11/28 Anticipated Goal Completion Date: 01/12/20 Clinical Notes 07-10-2020 to 09-06-2024 Telephone Encounter - Alesha Gill - 09/06/2024 3:16 PM EDTTelephone Encounter - Alesha Gill - 09/06/2024 3:16 PM EDTTelephone Encounter - Cassy Olmedo RN - 08/27/2024 9:13 AM EDT Note Date & Type Note Facility 09-06-2024 Telephone encounter Note Form atting of this note might be different from the original. 1st attempt MyChart message sent 08/27/24 2nd attempt called patient Unable to leave message to call the screening program at [phone] - voicemail not set up [facility] 09-06-2024 Miscellaneous Notes Formattin g of this note might be different from the original. 1st attempt MyChart message sent 08/27/24 2nd attempt called patient Unable to leave message to call the screening program at [phone] - voicemail not set up MyChart message sent to have patient call screening program if still interested in scheduling a screening colonoscopy. documented in this encounter [facility] 08-27-2024 Telephone encounter Note Form atting of this note might be different from the original. MyChart message sent to have patient call screening program if still interested in scheduling a screening colonoscopy. [facility] 08-25-2024 Telephone encounter Note Form atting of this note might be different from the original. Rx for bv and yeast sent [facility] 08-25-2024 Miscellaneous Notes Formattin g of this note might be different from the original. Rx for bv and yeast sent documented in this encounter [facility] 08-24-2024 History of Presen t illness Narrative Lisa Chaudhry 08/24/2024 44 y.o. Chief Complaint Patient presents with Annual Exam Annual exam No LMP recorded. Primary Care Physician: Noni Pablo MD The patient was seen and examined. She is here for her annual exam. Pap ho leep Mg 06/15 wnl Gm breast cancer 44 Gene testing desired Colonoscopy referral placed control wants to restart pill Ho migraine with aura Used pop in past not current Menes ok Hcg today neg Std testing blood work desired Vaginal discharge Was in hosp for high blood pressure Smoker Skin lesion s legs see wound on abx HPI : Lisa Chaudhry is a 44 y.o. female OB History Para Term AB Living 2 1 1 SAB IAB Ectopic Multiple Live Births 1 # Outcome Date GA Lbr Nael/2nd Weight Sex Type Anes PTL Lv 2 Term 1 Vag-Spont Past Medical History: Diagnosis Date Asthma Depression Drug abuse in remission (HCC) Endometriosis Eye discharge Eye pain Hepatitis C IBS (irritable bowel syndrome) Migraine with aura, intractable 07/06/2015 Motion sickness Seasonal allergies Past Surgical History: Procedure Laterality Date CERVICAL BIOPSY W/ LOOP ELECTRODE EXCISION 07/10/2022 COLONOSCOPY DILATION AND CURETTAGE OF UTERUS 07/10/2022 LAPAROSCOPY DIAGNOSTIC / BIOPSY / ASPIRATION / LYSIS OTHER SURGICAL HISTORY mole removal TONSILLECTOMY TONSILLECTOMY (HISTORICAL) UPPER GASTROINTESTINAL ENDOSCOPY Family History Problem Relation Name Age of Onset Macular degeneration Mother Other ([id number]) Father blood infection; liver dis; septic-age 59 Breast cancer Paternal Grandmother Three maiher 45 45 in one breast, 50 in the other Diabetes Paternal Grandmother Three maiher Stroke Neg Hx Heart attack Neg Hx Ovarian cancer Neg Hx Colon cancer Neg Hx Depression Neg Hx Heart disease Neg Hx Substance Abuse Neg Hx Cancer Neg Hx Mental illness Neg Hx Hyperlipidemia Neg Hx High Blood Pressure Neg Hx Social History Socioeconomic History Marital status: Single Spouse name: Not on file Number of children: Not on file Years of education: Not on file Highest education level: Not on file Occupational History Not on file Tobacco Use Smoking status: Every Day Current packs/day: 0.50 Average packs/day: 0.5 packs/day for 21.0 years (10.5 ttl pk-yrs) Types: Cigarettes Start date: 08/20/2003 Smokeless tobacco: Never Vaping Use Vaping status: Former Substances: Nicotine Devices: Disposable Substance and Sexual Activity Alcohol use: No Alcohol/week: 0.0 standard drinks of alcohol Drug use: Not Currently Sexual activity: Yes Other Topics Concern Not on file Social History Narrative Not on file Social Drivers of Health Financial Resource Strain: Low Risk (06/17/2023) [facility] Overall Financial Resource Strain (CARDIA) Difficulty of Paying Living Expenses: Not very hard Food Insecurity: No Food Insecurity (03/24/2024) Received from [facility] Hunger Vital Sign Worried About Running Out of Food in the Last Year: Never true Ran Out of Food in the Last Year: Never true Transportation Needs: No Transportation Needs (03/24/2024) Received from [facility] PRAPARE - Transportation Lack of Transportation (Medical): No Lack of Transportation (Non-Medical): No Physical Activity: Not on file Stress: Not on file Social Connections: Not on file Intimate Partner Violence: Not At Risk (03/24/2024) Received from [facility] Humiliation, Afraid, Rape, and Kick questionnaire Fear of Current or Ex-Partner: No Emotionally Abused: No Physically Abused: No Sexually Abused: No Housing Stability: Low Risk (03/24/2024) Received from [facility] Vital Sign Unable to Pay for Housing in the Last Year: No Number of Times Moved in the Last Year: 0 Homeless in the Last Year: No MEDICATIONS: Current Outpatient Medications Medication Sig Dispense Refill Ascorbic Acid (vitamin C) 250 MG tablet Take 250 mg by mouth daily. cloNIDine (Catapres) 0.1 MG tablet 0.1 mg. escitalopram (Lexapro) 20 MG tablet Take 20 mg by mouth daily. Linzess 72 MCG capsule Take 72 mcg by mouth daily. SUMAtriptan (Imitrex) 50 MG tablet Take 50 mg by mouth daily as needed. telmisartan (MIcarDIS) 40 MG tablet 20 mg. zolpidem (Ambien) 5 MG tablet Take 5 mg by mouth Nightly. ALBUTEROL IN Inhale. (Patient not taking: Reported on 08/24/2024) busPIRone (Buspar) 5 MG tablet Take 5 mg by mouth 3 times daily. cetirizine (ZyrTEC) 10 MG tablet Take by mouth. (Patient not taking: Reported on 08/24/2024) fluticasone (Flonase) 50 MCG/ACT nasal spray Use 1 (ONE) spray IN EACH NOSTRIL TWICE DAILY DIRECTED (Patient not taking: Reported on 08/24/2024) metroNIDAZOLE (Flagyl) 500 MG tablet Take 1 tablet (500 mg) by mouth 2 times daily for 7 days. 14 tablet 0 montelukast (Singulair) 10 MG tablet Take 10 mg by mouth daily at bedtime. Multiple Vitamin (multivitamin) capsule Take 1 capsule by mouth daily. (Patient not taking: Reported on 08/24/2024) norethindrone (Micronor) 0.35 MG tablet Take 1 tablet (0.35 mg) by mouth daily. 28 tablet 11 norethindrone (Micronor) 0.35 MG tablet Take 1 tablet (0.35 mg) by mouth daily. 28 tablet 12 Ventolin HFA 108 (90 Base) MCG/ACT inhaler INHALE 1 PUFF TWICE DAILY DIRECTED (Patient not taking: Reported on 08/24/2024) No current facility-administered medications for this visit. ALLERGIES: Allergies as of 08/24/2024 - Reviewed 08/24/2024 Allergen Reaction Noted Latex Rash 12/11/2017 Pollen extract 12/11/2017 Codeine 11/02/2010 Bee pollen 12/11/2017 Hydromorphone Itching 11/27/2012 GynecologicHistory: Menstrual History: No LMP recorded. Review of Systems Constitutional: Negative for fatigue, fever and unexpected weight change. HENT: Negative for congestion and sore throat. Eyes: Negative for discharge and visual disturbance. Respiratory: Negative for cough and shortness of breath. Cardiovascular: Negative for chest pain and leg swelling. Gastrointestinal: Negative for abdominal pain, constipation, diarrhea, nausea and vomiting. Genitourinary: Negative for dysuria and pelvic pain. Musculoskeletal: Negative for arthralgias and back pain. Skin: Negative for rash. Neurological: Negative for weakness and headaches. Psychiatric/Behavioral: Negative for dysphoric mood. The patient is not nervous/anxious. PHYSICAL Exam: Constitutional: Vitals: 08/24/24 1035 08/24/24 1036 BP: 120/81 122/80 Pulse: (!) 121 103 Weight: 156 lb (70.8 kg) Height: 5' 8 (1.727 m) Physical Exam Constitutional: General: She is not in acute distress. Appearance: Normal appearance. HENT: Head: Normocephalic and atraumatic. Right Ear: External ear normal. Left Ear: External ear normal. Nose: Nose normal. Eyes: Conjunctiva/sclera: Conjunctivae normal. Neck: Thyroid: No thyromegaly. Cardiovascular: Rate and Rhythm: Normal rate. Pulmonary: Effort: Pulmonary effort is normal. No respiratory distress. Chest: Breasts: Right: No mass, nipple discharge, skin change or tenderness. Left: No mass, nipple discharge, skin change or tenderness. Abdominal: General: There is no distension. Palpations: Abdomen is soft. Tenderness: There is no abdominal tenderness. Genitourinary: General: Normal vulva. Pubic Area: No rash. Labia: Right: No rash or lesion. Left: No rash or lesion. Vagina: No vaginal discharge or bleeding. Cervix: No cervical motion tenderness. Uterus: Not enlarged and not tender. Adnexa: Right: No mass or tenderness. Left: No mass or tenderness. Rectum: Normal. Musculoskeletal: General: No swelling. Normal range of motion. Cervical back: Normal range of motion. Right lower leg: No edema. Left lower leg: No edema. Skin: General: Skin is warm and dry. Neurological: Mental Status: She is alert and oriented to person, place, and time. Mental status is at baseline. Psychiatric: Mood and Affect: Mood normal. Behavior: Behavior normal. ASSESSMENT: 44 y.o. Annual Diagnosis Plan 1. Well woman exam with routine gynecological exam Pap Smear HPV High Risk PCR 2. Encounter for screening mammogram for malignant neoplasm of breast Bilateral screening mammogram with tomosynthesis 3. control counseling POCT , urine manually resulted 4. Vaginal discharge Sureswab(R) Advanced Vaginitis Plus, TMA ([facility]) 5. Screen for STD (sexually transmitted disease) Hepatitis B surface antigen RPR Hepatitis C antibody HIV-1 and HIV-2 Antigen-Antibody Screen Hepatitis B surface antigen RPR Hepatitis C antibody HIV-1 and HIV-2 Antigen-Antibody Screen 6. Screening for colon cancer [facility] 7. Family history of malignant neoplasm of breast EMPOWER MULTI-CANCER (2 + 38) Chief Complaint Patient presents with Annual Exam Annual exam Past Medical History: Diagnosis Date Asthma Depression Drug abuse in remission (HCC) Endometriosis Eye discharge Eye pain Hepatitis C IBS (irritable bowel syndrome) Migraine with aura, intractable 07/06/2015 Motion sickness Seasonal allergies Hereditary Breast, Ovarian, Colon and Uterine Cancer screening Done. Tobacco & Secondary smoke risks reviewed; instructed on cessation and avoidance PLAN: Follow up in about 1 year (around 08/24/2025) for annual. Repeat Annual every 1 year PAP guidelines reviewed with pt Mammograms annually if normal. colonoscopy recommendations reviewed with patient. Routine health maintenance per patients PCP. Orders Placed This Encounter Procedures HPV High Risk PCR THIS IS A CARVE-OUT LAB: SPECIMEN MUST BE SENT TO [facility] FOR PROCESSING Bilateral screening mammogram with tomosynthesis Standing Status: Future Standing Expiration Date: 10/24/2025 Hepatitis B surface antigen Standing Status: Future Number of Occurrences: 1 Standing Expiration Date: 08/24/2025 RPR Standing Status: Future Number of Occurrences: 1 Standing Expiration Date: 08/24/2025 Hepatitis C antibody Standing Status: Future Number of Occurrences: 1 Standing Expiration Date: 08/24/2025 HIV-1 and HIV-2 Antigen-Antibody Screen Standing Status: Future Number of Occurrences: 1 Standing Expiration Date: 08/24/2025 Sureswab(R) Advanced Vaginitis Plus, TMA ([facility]) 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 Answer: Yes Order Specific Question: Does this patient have a personal history of cancer? If Yes, send cancer history to Becky Answer: No Order Specific Question: Does this patient have a family history of cancer? If Yes, send cancer history to Becky Answer: Yes Order Specific Question: By placing this electronic order I confirm the testing ordered herein is medically necessary and this patient has been informed of the details of the genetic test(s) ordered, including the risks, benefits, and alternatives, and has consented to testing. Answer: Yes Order Specific Question: Method/type of collection: Answer: Clinic to manage sample collection Order Specific Question: What type of billing? Answer: Bill Insurance Order Specific Question: Select an order diagnosis Answer: Family history of malignant neoplasm of breast [V16.3.ICD-9-CM] [facility] Standing Status: Future Standing Expiration Date: 02/24/2025 Referral Priority: Routine Referral Type: Consultation Referral Reason: Specialty Services Required Requested Specialty: Gastroenterology Number of Visits Requested: 1 POCT , urine manually resulted Dust Mixer was offered to the patient for exam. 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 Noni Pablo MD Status:REG RC R Location: History of Present Illness Date of Service: 06/23/24 Chief Complaint: Multiple necrotic ulcerations in the lower extremities bilaterally History of Wound: This is a 44-year-old female who presented with multiple necrotic ulcerations in both lower extremities. She states that these have beenpresent for several months. She stated that she had been evaluated recently at the [facility] by Dr. Boni Lambert, a specialist in cardiovascular medicine. The patient stated that she has had similar ulcerations on her upper extremities, but these have subsequently healed. The patient has a history of heroin addiction, and admits to injecting heroin for several years in the past, though claims to have overcome her addiction as of January 2024. When questioned, she indicated that her usual sites of injection wearing her arms, but that she had also occasionally used injection sites in her legs. The patient describes a hospitalization approximately 1 year ago, the description ofwhich suggests she was treated for septicemia/sepsis. The patient also admits to smoking approximately 7 cigarettes/day. She also vapes. 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 Tobacco abuse counseling Anxiety Substance abuse Depression Home Medications ?Medication ?Instructions ?Recorded ?Last Taken ?Type albuterol sulfate 90 mcg/actuation 1 puff inhalation Q 6H PRN PRN 02/27/13 Unknown History aerosol inhaler (Ventolin HFA) Wheezing sumatriptan succinate 50 mg tablet 50 mg PO .X1 PRN Unknown History buspirone 5 mg tablet 5 mg PO TID 06/23/24 Unknown History clonidine HCl 0.1 mg tablet 0.1 mg PO BID 06/23/24 Unk nown History escitalopram oxalate 20 mg tablet 20 mg PO DAILY 06/23 Unknown History polyethylene glycol 3350 17 17 g PO QWEEK PRN constipa tion 06/23/24 Unknown History gram/dose oral powder telmisartan 40 mg tablet 20 mg PO DAILY 06/23/24 Unkn own History zolpidem 5 mg tablet 5 mg PO QHS 06/23/24 Unknown History Allergy/AdvReac Type Severity Reaction Status Date / Time hydromorphone HCl (From AdvReac Itching Verified 06/23/24 11:24 Dilaudid) Surgical History History of D&C History of tonsillectomy Social History Smoking Status: Current every day smoker tobacco type: cigarettes Vital Signs Vital Signs Vital Signs: Weight Weight: 162 lb Body Mass Index (BMI) 24.6 Physical Exam Const alert, oriented x3, no apparent distress, average body habitus, no limitations and well nourished Constitutional Narrative: The patient's BMI is 24.6. General Appearance: cooperative, comfortable and well developed Orientation / Consciousness: awake, oriented to person, oriented to place and oriented to time Exam Limitations: no limitations HEENT normocephalic and head/scalp atraumatic Head and Scalp: normal to inspection, normocephalic and atraumatic Face and Sinus: normal facial exam Nose: external nose normal External Ear: external ears normal Eyes EOMs intact bilaterally General Eye: normal appearance of both eyes Resp normal respiratory effort, normal air movement, no retractions and no use of accessory muscles Effort and Inspection: able to speak in complete sentences Extremity no calf tenderness General Extremity: Negative for clubbing or cyanosis Skin Wound Narrative: Numerous ulcerations are noted in both lower extremities. They are generally small in size. Most appear to extend through all layers of the dermis and into the subcutaneous tissues. Most demonstrate frankly necrotic tissue within. Many demonstrate a rim of erythema, suggestive of cellulitis. Ulcer margins aregenerally not well beveled. Dimensions and locations of the ulcerations are documented elsewhere. Photographic documentation has also been undertaken. Hair: normal Neuro oriented x3, CN's II-XII intact bilaterally, moves all extremities, no focal motor deficits and no sensory deficits noted Sensorium / Orientation: awake, alert, oriented to person, oriented to place, oriented to time and orientation impaired Speech: speech normal Psych Appearance: grossly normal and appropriate Attitude: calm Activity / Motor Behavior: appropriate eye contact Speech: normal speech Mood & Affect: euthymic mood Thought Process: normal thought process Thought Content: normal thought content Attention / Concentration: attention grossly intact Debridement Note Debridement Note Wound debrided: Right lower extremity ulcerations Laterality: Right Type of Debridement: Excisional debridement Anesthesia Used: 5% Lidocaine Gel and Cetacaine Depth: Down to and including healthy tissue and in the subcutaneous layer Percentage of wound debrided: 100 Instrument Used: 5mm curette Tissue Removed: Frankly necrotic tissue, eschar, and bioburden Severity: Fat Layer Exposed Amount of bleeding with debridement: Mild Bleeding Controlled with: Compression and gauze Patient tolerated procedure: Patient tolerated procedure well Debridement Free Text: Using a sterile, disposable 5 mm curette several of the right lower extremity ulcerations were debrided. However, the presence of frankly tissue was highly resistant to the debridement. Additionally, the presence of multiple ulcerations precluded debridement of all ulcerations at thetime of the patient's initial visit. It is intended that collagenase Santyl will be prescribed to initiate the enzymatic debridement of these multiple ulcerations, which will likely render subsequent mechanical debridements more feasible. Swabs were obtained of 2 separate and distinct wounds for culture andsensitivity for aerobic and anaerobic bacteria. Post-Debridement Measurements and Additional Note: Post-Debridement Measurements/Treatment - Nurse 1 - General Ulcer Assessment Start: 06/23/24 10:28 Freq: Status: Active Protocol: WC.[place]ONT Activity Type Activity Date Activity User E-sign Co-sign Detail Recorded Client Recorded Date Recorded By Document 06/23/24 10:28 [facility] [id number] 06/23/24 11:24 [facility] 06/23/24 10:28 - Today's Visit Information Type of service Initial Visit Arrival Mode Ambulatory Transfer Assistance None Patient Identification Verified (Name & Yes ) Patient Requires Transmission-Based No Precautions Height and Weight Height 5 ft 8 in Weight 162 lb Weight in Pounds 162.0 lbs Body Mass Index (BMI) 24.6 BMI Classification Normal Vital Signs Temperature (97.8 F-99.1 F) 97.3 F L Temperature Source Temporal Pulse Rate (60-100) 83 Pulse Location Monitor Respiratory Rate (12-18) 16 Respiratory rate source Observation Oxygen Delivery Method Room Air Blood Pressure (90/60-120/80) 132/98 H Blood Pressure Mean 109 Source Monitor Position Sitting Blood Pressure Location Left Arm History Since Last Visit- (Skip if this is Patient's initial visit) Left Footwear Regular Shoe Right Footwear Regular Shoe Pain Scale: 0-10 Numeric Is Patient Pain Free? Yes Communication Assessment Preferred language Kuwaiti Machine Tool Rebuilder Required No Able to Read Yes Able to Write Yes Communication Tools None Right Hearing Abillity Normal Left Hearing Abillity Normal Visual Assistive Devices Glasses, Contacts Teaching Assessment Preferences Verbal,Written, Audio/Visual, Demonstration Barriers to Learning None Readiness To Learn Excellent Willingness to Engage in Self Management High Activies Readiness to Engage in Self Management High Activities Anxiety Level Calm Cooperation Cooperative Perception Coherent Interest in Health Problem Asks Questions Education Importance Acknowledges Need Does Patient Smoke tobacco or other No substances Smoking Status Current every day smoker Is Patient Diabetic No Functional Assessment Recent Decline in Ability to Perform Denies Any Declines Culture/Method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 Cultural/Methodist Needs that may affect No Treatment Plan Teaching: Wound Center *Welcome to the Wound Center -Person Taught Patient -Teaching Method Discussion -Response to teaching Verbalize Understanding - Nurse 1 - General Ulcer Measurement Start: 06/23/24 10:28 Freq: Status: Active Protocol: Activity Type Activity Date Activity User E-sign Co-sign Detail Recorded Client Recorded Date Recorded By Document 06/23/24 10:28 [facility] [id number] 06/23/24 11:24 [facility] Edit Result 06/23/24 10:28 [facility] (1) [id number] 06/23/24 11:47 [facility] (1) #16 L Upper Calf Med - Current Size (cm) - Length => 0.6 - Current Size (cm) - Width => 0.4 - Current Size (cm) - Depth => 0.3 - Total Square Cm => 0.24 - Date of Last Picture (Recall this => 06/23/24 field) - Photo Taken => Yes - Tunneling => No - Undermining/Tunneling => No - Circular Undermining => No - Exudate Amt => None Present - Wound Margin => Distinct, Outline => Attached - Granulation Amt => None Present (0%) - Slough/Fibrin => Yes - Necrosis Amt => Large (67-100%) - Necrotic Tissue Type => Eschar - Texture (Cherelle-wound Skin Appearance) => Assessed - Moisture (Cherelle-wound Skin Appearance) => Assessed - Color (Cherelle-wound Skin Appearance) => Assessed - Temperature (Cherelle-wound Skin => No Abnormality (Pt Appearance) => Warm) - Tenderness on Palpation (Cherelle-wound => Yes Skin Appearance) - Ulcer Cleansing => Soap and Water - Foul Odor after Cleansing => No - Anesthetic Used => 5% Lidocaine Gel #15 L Med Thigh - Current Size (cm) - Length => 0.9 - Current Size (cm) - Width => 0.9 - Current Size (cm) - Depth => 0.2 - Total Square Cm => 0.81 - Date of Last Picture (Recall this => 06/23/24 field) - Photo Taken => Yes - Tunneling => No - Undermining/Tunneling => No - Circular Undermining => No - Exudate Amt => None Present - Wound Margin => Distinct, Outline => Attached - Granulation Amt => None Present (0%) - Slough/Fibrin => Yes - Necrosis Amt => Large (67-100%) - Necrotic Tissue Type => Eschar - Texture (Cherelle-wound Skin Appearance) => Assessed,Scarring - Moisture (Cherelle-wound Skin Appearance) => Assessed - Color (Cherelle-wound Skin Appearance) => Assessed,Erythema - Temperature (Cherelle-wound Skin => No Abnormality (Pt Appearance) => Warm) - Tenderness on Palpation (Cherelle-wound => Yes Skin Appearance) - Ulcer Cleansing => Soap and Water - Foul Odor after Cleansing => No - Anesthetic Used => 5% Lidocaine Gel #14 L Lat Thigh - Current Size (cm) - Length => 0.4 - Current Size (cm) - Width => 0.3 - Current Size (cm) - Depth => 0.1 - Total Square Cm => 0.12 - Date of Last Picture (Recall this => 06/23/24 field) - Photo Taken => Yes - Tunneling => No - Undermining/Tunneling => No - Circular Undermining => No - Exudate Amt => None Present - Wound Margin => Distinct, Outline => Attached - Granulation Amt => None Present (0%) - Slough/Fibrin => Yes - Necrosis Amt => Large (67-100%) - Necrotic Tissue Type => Eschar - Texture (Cherelle-wound Skin Appearance) => Assessed,Scarring - Moisture (Cherelle-wound Skin Appearance) => Assessed - Color (Cherelle-wound Skin Appearance) => Assessed,Erythema - Temperature (Cherelle-wound Skin => No Abnormality (Pt Appearance) => Warm) - Tenderness on Palpation (Cherelle-wound => No Skin Appearance) - Ulcer Cleansing => Soap and Water - Foul Odor after Cleansing => No - Anesthetic Used => 5% Lidocaine Gel #13 L Knee Sup - Current Size (cm) - Length => 0.8 - Current Size (cm) - Width => 0.3 - Current Size (cm) - Depth => 0.2 - Total Square Cm => 0.24 - Date of Last Picture (Recall this => 06/23/24 field) - Photo Taken => Yes - Tunneling => No - Undermining/Tunneling => No - Circular Undermining => No - Exudate Amt => None Present - Wound Margin => Distinct, Outline => Attached - Granulation Amt => None Present (0%) - Slough/Fibrin => Yes - Necrosis Amt => Large (67-100%) - Necrotic Tissue Type => Eschar - Texture (Cherelle-wound Skin Appearance) => Assessed,Scarring - Moisture (Cherelle-wound Skin Appearance) => Assessed - Color (Cherelle-wound Skin Appearance) => Assessed,Erythema - Temperature (Cherelle-wound Skin => No Abnormality (Pt Appearance) => Warm) - Tenderness on Palpation (Cherelle-wound => No Skin Appearance) - Ulcer Cleansing => Soap and Water - Foul Odor after Cleansing => No - Anesthetic Used => 5% Lidocaine Gel #12 L Lat Knee - Current Size (cm) - Length => 0.4 - Current Size (cm) - Width => 0.3 - Current Size (cm) - Depth => 0.2 - Total Square Cm => 0.12 - Date of Last Picture (Recall this => 06/23/24 field) - Photo Taken => Yes - Tunneling => No - Undermining/Tunneling => No - Circular Undermining => No - Exudate Amt => None Present - Wound Margin => Distinct, Outline => Attached - Granulation Amt => None Present (0%) - Slough/Fibrin => Yes - Necrosis Amt => Large (67-100%) - Necrotic Tissue Type => Eschar - Texture (Cherelle-wound Skin Appearance) => Assessed,Scarring - Moisture (Cherelle-wound Skin Appearance) => Assessed - Color (Cherelle-wound Skin Appearance) => Assessed,Erythema - Temperature (Cherelle-wound Skin => No Abnormality (Pt Appearance) => Warm) - Tenderness on Palpation (Cherelle-wound => Yes Skin Appearance) - Ulcer Cleansing => Soap and Water - Foul Odor after Cleansing => No - Anesthetic Used => 5% Lidocaine Gel #11 L Upper Walker Cluster - Current Size (cm) - Length => 9 - Current Size (cm) - Width => 5.8 - Current Size (cm) - Depth => 0.3 - Total Square Cm => 52.2 - Date of Last Picture (Recall this => 06/23/24 field) - Photo Taken => Yes - Tunneling => No - Undermining/Tunneling => No - Circular Undermining => No - Exudate Amt => None Present - Wound Margin => Distinct, Outline => Attached - Granulation Amt => None Present (0%) - Slough/Fibrin => Yes - Necrosis Amt => Large (67-100%) - Necrotic Tissue Type => Eschar - Texture (Cherelle-wound Skin Appearance) => Assessed,Scarring - Moisture (Cherelle-wound Skin Appearance) => Assessed - Color (Cherelle-wound Skin Appearance) => Assessed,Erythema - Temperature (Cherelle-wound Skin => No Abnormality (Pt Appearance) => Warm) - Tenderness on Palpation (Cherelle-wound => Yes Skin Appearance) - Ulcer Cleansing => Soap and Water - Foul Odor after Cleansing => No - Anesthetic Used => 5% Lidocaine Gel #10 L Lat Walker - Current Size (cm) - Length => 1.7 - Current Size (cm) - Width => 1.2 - Current Size (cm) - Depth => 0.3 - Total Square Cm => 2.04 - Date of Last Picture (Recall this => 06/23/24 field) - Photo Taken => Yes - Tunneling => No - Undermining/Tunneling => No - Circular Undermining => No - Exudate Amt => None Present - Wound Margin => Distinct, Outline => Attached - Granulation Amt => None Present (0%) - Slough/Fibrin => Yes - Necrosis Amt => Large (67-100%) - Necrotic Tissue Type => Eschar - Texture (Cherelle-wound Skin Appearance) => Assessed,Scarring - Moisture (Cherelle-wound Skin Appearance) => Assessed - Color (Cherelle-wound Skin Appearance) => Assessed,Erythema - Temperature (Cherelle-wound Skin => No Abnormality (Pt Appearance) => Warm) - Tenderness on Palpation (Cherelle-wound => Yes Skin Appearance) - Ulcer Cleansing => Soap and Water - Foul Odor after Cleansing => No - Anesthetic Used => 5% Lidocaine Gel #9 R Sup Thigh - Current Size (cm) - Length => 0.3 - Current Size (cm) - Width => 0.3 - Current Size (cm) - Depth => 0.1 - Total Square Cm => 0.09 - Date of Last Picture (Recall this => 06/23/24 field) - Photo Taken => Yes - Tunneling => No - Undermining/Tunneling => No - Circular Undermining => No - Exudate Amt => None Present - Wound Margin => Distinct, Outline => Attached - Granulation Amt => None Present (0%) - Slough/Fibrin => Yes - Necrosis Amt => Large (67-100%) - Necrotic Tissue Type => Eschar - Texture (Cherelle-wound Skin Appearance) => Assessed,Scarring - Moisture (Cherelle-wound Skin Appearance) => Assessed - Color (Cherelle-wound Skin Appearance) => Assessed,Erythema - Temperature (Cherelle-wound Skin => No Abnormality (Pt Appearance) => Warm) - Tenderness on Palpation (Cherelle-wound => Yes Skin Appearance) - Ulcer Cleansing => Soap and Water - Foul Odor after Cleansing => No - Anesthetic Used => 5% Lidocaine Gel #8 R Thigh - Current Size (cm) - Length => 0.5 - Current Size (cm) - Width => 0.5 - Current Size (cm) - Depth => 0.2 - Total Square Cm => 0.25 - Date of Last Picture (Recall this => 06/23/24 field) - Photo Taken => Yes - Tunneling => No - Undermining/Tunneling => No - Circular Undermining => No - Exudate Amt => None Present - Wound Margin => Distinct, Outline => Attached - Granulation Amt => None Present (0%) - Slough/Fibrin => Yes - Necrosis Amt => Large (67-100%) - Necrotic Tissue Type => Eschar - Texture (Cherelle-wound Skin Appearance) => Assessed,Scarring - Moisture (Cherelle-wound Skin Appearance) => Assessed - Color (Cherelle-wound Skin Appearance) => Assessed,Erythema - Temperature (Cherelle-wound Skin => No Abnormality (Pt Appearance) => Warm) - Tenderness on Palpation (Cherelle-wound => Yes Skin Appearance) - Ulcer Cleansing => Soap and Water - Foul Odor after Cleansing => No - Anesthetic Used => 5% Lidocaine Gel #7 R Lower Lat Thigh - Current Size (cm) - Length => 1.4 - Current Size (cm) - Width => 0.6 - Current Size (cm) - Depth => 0.2 - Total Square Cm => 0.84 - Date of Last Picture (Recall this => 06/23/24 field) - Photo Taken => Yes - Epithelialization => None Present - Tunneling => No - Undermining/Tunneling => No - Circular Undermining => No - Exudate Amt => Small - Exudate Type => Serosanguineous - Wound Margin => Distinct, Outline => Attached - Granulation Amt => Small (1-33%) - Granulation Quality => Red - Slough/Fibrin => Yes - Necrosis Amt => Large (67-100%) - Necrotic Tissue Type => Eschar - Texture (Cherelle-wound Skin Appearance) => Assessed,Scarring - Moisture (Cherelle-wound Skin Appearance) => Assessed - Color (Cherelle-wound Skin Appearance) => Assessed,Erythema - Temperature (Cherelle-wound Skin => No Abnormality (Pt Appearance) => Warm) - Tenderness on Palpation (Cherelle-wound => Yes Skin Appearance) - Ulcer Cleansing => Soap and Water - Foul Odor after Cleansing => No - Anesthetic Used => 5% Lidocaine Gel #6 R Lat Knee - Current Size (cm) - Length => 0.1 - Current Size (cm) - Width => 0.1 - Current Size (cm) - Depth => 0.1 - Total Square Cm => 0.01 - Date of Last Picture (Recall this => 06/23/24 field) - Photo Taken => Yes - Tunneling => No - Undermining/Tunneling => No - Circular Undermining => No - Exudate Amt => None Present - Wound Margin => Distinct, Outline => Attached - Granulation Amt => None Present (0%) - Slough/Fibrin => Yes - Necrosis Amt => Large (67-100%) - Necrotic Tissue Type => Eschar - Texture (Cherelle-wound Skin Appearance) => Assessed,Scarring - Moisture (Cherelle-wound Skin Appearance) => Assessed - Color (Cherelle-wound Skin Appearance) => Assessed,Erythema - Temperature (Cherelle-wound Skin => No Abnormality (Pt Appearance) => Warm) - Tenderness on Palpation (Cherelle-wound => Yes Skin Appearance) - Ulcer Cleansing => Soap and Water - Foul Odor after Cleansing => No - Anesthetic Used => 5% Lidocaine Gel #5 R Med Knee - Current Size (cm) - Length => 0.1 - Current Size (cm) - Width => 0.1 - Current Size (cm) - Depth => 0.1 - Total Square Cm => 0.01 - Date of Last Picture (Recall this => 06/23/24 field) - Photo Taken => Yes - Tunneling => No - Undermining/Tunneling => No - Circular Undermining => No - Exudate Amt => Small - Exudate Type => Serosanguineous - Wound Margin => Distinct, Outline => Attached - Granulation Amt => Large (67-100%) - Granulation Quality => Red - Slough/Fibrin => Yes - Necrosis Amt => Small (1-33%) - Necrotic Tissue Type => Adherent Slough - Texture (Cherelle-wound Skin Appearance) => Assessed,Scarring - Moisture (Cherelle-wound Skin Appearance) => Assessed - Color (Cherelle-wound Skin Appearance) => Assessed - Temperature (Cherelle-wound Skin => No Abnormality (Pt Appearance) => Warm) - Tenderness on Palpation (Cherelle-wound => No Skin Appearance) - Ulcer Cleansing => Soap and Water - Foul Odor after Cleansing => No - Anesthetic Used => 5% Lidocaine Gel #4R Sup Walker - Current Size (cm) - Length => 0.2 - Current Size (cm) - Width => 0.2 - Current Size (cm) - Depth => 0.2 - Total Square Cm => 0.04 - Date of Last Picture (Recall this => 06/23/24 field) - Photo Taken => Yes - Tunneling => No - Undermining/Tunneling => No - Circular Undermining => No - Exudate Amt => None Present - Wound Margin => Distinct, Outline => Attached - Granulation Amt => None Present (0%) - Slough/Fibrin => Yes - Necrosis Amt => Large (67-100%) - Necrotic Tissue Type => Eschar - Texture (Cherelle-wound Skin Appearance) => Assessed - Moisture (Cherelle-wound Skin Appearance) => Assessed - Color (Cherelle-wound Skin Appearance) => Assessed,Erythema - Temperature (Cherelle-wound Skin => No Abnormality (Pt Appearance) => Warm) - Tenderness on Palpation (Cherelle-wound => Yes Skin Appearance) - Ulcer Cleansing => Soap and Water - Foul Odor after Cleansing => No - Anesthetic Used => 5% Lidocaine Gel #3 R. Lat Walker Cluster - Current Size (cm) - Length => 3.2 - Current Size (cm) - Width => 0.8 - Current Size (cm) - Depth => 0.4 - Total Square Cm => 2.56 - Date of Last Picture (Recall this => 06/23/24 field) - Photo Taken => Yes - Tunneling => No - Undermining/Tunneling => No - Circular Undermining => No - Exudate Amt => None Present - Wound Margin => Distinct, Outline => Attached - Granulation Amt => None Present (0%) - Slough/Fibrin => Yes - Necrosis Amt => Large (67-100%) - Necrotic Tissue Type => Eschar - Texture (Cherelle-wound Skin Appearance) => Assessed,Scarring - Moisture (Cherelle-wound Skin Appearance) => Assessed - Color (Cherelle-wound Skin Appearance) => Assessed,Erythema - Temperature (Cherelle-wound Skin => No Abnormality (Pt Appearance) => Warm) - Tenderness on Palpation (Cherelle-wound => No Skin Appearance) - Ulcer Cleansing => Soap and Water - Foul Odor after Cleansing => No - Anesthetic Used => 5% Lidocaine Gel #2 R Lower Walker Cluster - Current Size (cm) - Length => 4.6 - Current Size (cm) - Width => 1.9 - Current Size (cm) - Depth => 0.2 - Total Square Cm => 8.74 - Date of Last Picture (Recall this => 06/23/24 field) - Photo Taken => Yes - Epithelialization => None Present - Tunneling => No - Undermining/Tunneling => No - Circular Undermining => No - Exudate Amt => None Present - Wound Margin => Distinct, Outline => Attached - Granulation Amt => None Present (0%) - Slough/Fibrin => Yes - Necrosis Amt => Large (67-100%) - Necrotic Tissue Type => Eschar - Texture (Cherelle-wound Skin Appearance) => Assessed - Moisture (Cherelle-wound Skin Appearance) => Assessed - Color (Cherelle-wound Skin Appearance) => Assessed - Temperature (Hcerelle-wound Skin => No Abnormality (Pt Appearance) => Warm) - Tenderness on Palpation (Cherelle-wound => Yes Skin Appearance) - Ulcer Cleansing => Soap and Water - Foul Odor after Cleansing => No - Anesthetic Used => 5% Lidocaine Gel #1 R Lat Calf - Current Size (cm) - Length => 1 - Current Size (cm) - Width => 1.1 - Current Size (cm) - Depth => 0.6 - Total Square Cm => 1.1 - Date of Last Picture (Recall this => 06/23/24 field) - Photo Taken => Yes - Epithelialization => None Present - Tunneling => No - Undermining/Tunneling => No - Circular Undermining => No - Exudate Amt => None Present - Wound Margin => Distinct, Outline => Attached - Granulation Amt => None Present (0%) - Slough/Fibrin => Yes - Necrosis Amt => Large (67-100%) - Necrotic Tissue Type => Adherent Slough - Texture (Cherelle-wound Skin Appearance) => Assessed - Moisture (Cherelle-wound Skin Appearance) => Assessed - Color (Cherelle-wound Skin Appearance) => Assessed,Erythema - Temperature (Cherelle-wound Skin => No Abnormality (Pt Appearance) => Warm) - Tenderness on Palpation (Cherelle-wound => Yes Skin Appearance) - Ulcer Cleansing => Soap and Water - Foul Odor after Cleansing => No - Anesthetic Used => 5% Lidocaine Gel 06/23/24 10:28 Wound Center Nurse 1 #16 L Upper Calf Med -Combined with other wound No -Current Size (cm) - Length 0.6 -Current Size (cm) - Width 0.4 -Current Size (cm) - Depth 0.3 -Total Square Cm 0.24 -Date of Last Picture (Recall this 06/23/24 field) -Photo Taken Yes -Tunneling No -Undermining/Tunneling No -Circular Undermining No -Exudate Amt None Present -Wound Margin Distinct, Outline Attached -Granulation Amt None Present (0 %) -Slough/Fibrin Yes -Necrosis Amt Large (67-100%) -Necrotic Tissue Type Eschar -Texture (Cherelle-wound Skin Appearance) Assessed -Moisture (Cherelle-wound Skin Appearance) Assessed -Color (Cherelle-wound Skin Appearance) Assessed -Temperature (Cherelle-wound Skin No Abnormality Appearance) (Pt Warm) -Tenderness on Palpation (Cherelle-wound Yes Skin Appearance) -Ulcer Cleansing Soap and Water -Foul Odor after Cleansing No -Anesthetic Used 5% Lidocaine Gel #15 L Med Thigh -Combined with other wound No -Current Size (cm) - Length 0.9 -Current Size (cm) - Width 0.9 -Current Size (cm) - Depth 0.2 -Total Square Cm 0.81 -Date of Last Picture (Recall this 06/23/24 field) -Photo Taken Yes -Tunneling No -Undermining/Tunneling No -Circular Undermining No -Exudate Amt None Present -Wound Margin Distinct, Outline Attached -Granulation Amt None Present (0 %) -Slough/Fibrin Yes -Necrosis Amt Large (67-100%) -Necrotic Tissue Type Eschar -Texture (Cherelle-wound Skin Appearance) Assessed, Scarring -Moisture (Cherelle-wound Skin Appearance) Assessed -Color (Cherelle-wound Skin Appearance) Assessed, Erythema -Temperature (Cherelle-wound Skin No Abnormality Appearance) (Pt Warm) -Tenderness on Palpation (Cherelle-wound Yes Skin Appearance) -Ulcer Cleansing Soap and Water -Foul Odor after Cleansing No -Anesthetic Used 5% Lidocaine Gel #14 L Lat Thigh -Combined with other wound No -Current Size (cm) - Length 0.4 -Current Size (cm) - Width 0.3 -Current Size (cm) - Depth 0.1 -Total Square Cm 0.12 -Date of Last Picture (Recall this 06/23/24 field) -Photo Taken Yes -Tunneling No -Undermining/Tunneling No -Circular Undermining No -Exudate Amt None Present -Wound Margin Distinct, Outline Attached -Granulation Amt None Present (0 %) -Slough/Fibrin Yes -Necrosis Amt Large (67-100%) -Necrotic Tissue Type Eschar -Texture (Cherelle-wound Skin Appearance) Assessed, Scarring -Moisture (Cherelle-wound Skin Appearance) Assessed -Color (Cherelle-wound Skin Appearance) Assessed, Erythema -Temperature (Cherelle-wound Skin No Abnormality Appearance) (Pt Warm) -Tenderness on Palpation (Cherelle-wound No Skin Appearance) -Ulcer Cleansing Soap and Water -Foul Odor after Cleansing No -Anesthetic Used 5% Lidocaine Gel #13 L Knee Sup -Combined with other wound No -Current Size (cm) - Length 0.8 -Current Size (cm) - Width 0.3 -Current Size (cm) - Depth 0.2 -Total Square Cm 0.24 -Date of Last Picture (Recall this 06/23/24 field) -Photo Taken Yes -Tunneling No -Undermining/Tunneling No -Circular Undermining No -Exudate Amt None Present -Wound Margin Distinct, Outline Attached -Granulation Amt None Present (0 %) -Slough/Fibrin Yes -Necrosis Amt Large (67-100%) -Necrotic Tissue Type Eschar -Texture (Cherelle-wound Skin Appearance) Assessed, Scarring -Moisture (Cherelle-wound Skin Appearance) Assessed -Color (Cherelle-wound Skin Appearance) Assessed, Erythema -Temperature (Cherelle-wound Skin No Abnormality Appearance) (Pt Warm) -Tenderness on Palpation (Cherelle-wound No Skin Appearance) -Ulcer Cleansing Soap and Water -Foul Odor after Cleansing No -Anesthetic Used 5% Lidocaine Gel #12 L Lat Knee -Combined with other wound No -Current Size (cm) - Length 0.4 -Current Size (cm) - Width 0.3 -Current Size (cm) - Depth 0.2 -Total Square Cm 0.12 -Date of Last Picture (Recall this 06/23/24 field) -Photo Taken Yes -Tunneling No -Undermining/Tunneling No -Circular Undermining No -Exudate Amt None Present -Wound Margin Distinct, Outline Attached -Granulation Amt None Present (0 %) -Slough/Fibrin Yes -Necrosis Amt Large (67-100%) -Necrotic Tissue Type Eschar -Texture (Cherelle-wound Skin Appearance) Assessed, Scarring -Moisture (Cherelle-wound Skin Appearance) Assessed -Color (Cherelle-wound Skin Appearance) Assessed, Erythema -Temperature (Cherelle-wound Skin No Abnormality Appearance) (Pt Warm) -Tenderness on Palpation (Cherelle-wound Yes Skin Appearance) -Ulcer Cleansing Soap and Water -Foul Odor after Cleansing No -Anesthetic Used 5% Lidocaine Gel #11 L Upper Walker Cluster -Combined with other wound No -Current Size (cm) - Length 9 -Current Size (cm) - Width 5.8 -Current Size (cm) - Depth 0.3 -Total Square Cm 52.2 -Date of Last Picture (Recall this 06/23/24 field) -Photo Taken Yes -Tunneling No -Undermining/Tunneling No -Circular Undermining No -Exudate Amt None Present -Wound Margin Distinct, Outline Attached -Granulation Amt None Present (0 %) -Slough/Fibrin Yes -Necrosis Amt Large (67-100%) -Necrotic Tissue Type Eschar -Texture (Cherelle-wound Skin Appearance) Assessed, Scarring -Moisture (Cherelle-wound Skin Appearance) Assessed -Color (Cherelle-wound Skin Appearance) Assessed, Erythema -Temperature (Cherelle-wound Skin No Abnormality Appearance) (Pt Warm) -Tenderness on Palpation (Cherelle-wound Yes Skin Appearance) -Ulcer Cleansing Soap and Water -Foul Odor after Cleansing No -Anesthetic Used 5% Lidocaine Gel #10 L Lat Walker -Combined with other wound No -Current Size (cm) - Length 1.7 -Current Size (cm) - Width 1.2 -Current Size (cm) - Depth 0.3 -Total Square Cm 2.04 -Date of Last Picture (Recall this 06/23/24 field) -Photo Taken Yes -Tunneling No -Undermining/Tunneling No -Circular Undermining No -Exudate Amt None Present -Wound Margin Distinct, Outline Attached -Granulation Amt None Present (0 %) -Slough/Fibrin Yes -Necrosis Amt Large (67-100%) -Necrotic Tissue Type Eschar -Texture (Cherelle-wound Skin Appearance) Assessed, Scarring -Moisture (Cherelle-wound Skin Appearance) Assessed -Color (Cherelle-wound Skin Appearance) Assessed, Erythema -Temperature (Cherelle-wound Skin No Abnormality Appearance) (Pt Warm) -Tenderness on Palpation (Cherelle-wound Yes Skin Appearance) -Ulcer Cleansing Soap and Water -Foul Odor after Cleansing No -Anesthetic Used 5% Lidocaine Gel #9 R Sup Thigh -Combined with other wound No -Current Size (cm) - Length 0.3 -Current Size (cm) - Width 0.3 -Current Size (cm) - Depth 0.1 -Total Square Cm 0.09 -Date of Last Picture (Recall this 06/23/24 field) -Photo Taken Yes -Tunneling No -Undermining/Tunneling No -Circular Undermining No -Exudate Amt None Present -Wound Margin Distinct, Outline Attached -Granulation Amt None Present (0 %) -Slough/Fibrin Yes -Necrosis Amt Large (67-100%) -Necrotic Tissue Type Eschar -Texture (Cherelle-wound Skin Appearance) Assessed, Scarring -Moisture (Cherelle-wound Skin Appearance) Assessed -Color (Cherelle-wound Skin Appearance) Assessed, Erythema -Temperature (Cherelle-wound Skin No Abnormality Appearance) (Pt Warm) -Tenderness on Palpation (Cherelle-wound Yes Skin Appearance) -Ulcer Cleansing Soap and Water -Foul Odor after Cleansing No -Anesthetic Used 5% Lidocaine Gel #8 R Thigh -Combined with other wound No -Current Size (cm) - Length 0.5 -Current Size (cm) - Width 0.5 -Current Size (cm) - Depth 0.2 -Total Square Cm 0.25 -Date of Last Picture (Recall this 06/23/24 field) -Photo Taken Yes -Tunneling No -Undermining/Tunneling No -Circular Undermining No -Exudate Amt None Present -Wound Margin Distinct, Outline Attached -Granulation Amt None Present (0 %) -Slough/Fibrin Yes -Necrosis Amt Large (67-100%) -Necrotic Tissue Type Eschar -Texture (Cherelle-wound Skin Appearance) Assessed, Scarring -Moisture (Cherelle-wound Skin Appearance) Assessed -Color (Cherelle-wound Skin Appearance) Assessed, Erythema -Temperature (Cherelle-wound Skin No Abnormality Appearance) (Pt Warm) -Tenderness on Palpation (Cherelle-wound Yes Skin Appearance) -Ulcer Cleansing Soap and Water -Foul Odor after Cleansing No -Anesthetic Used 5% Lidocaine Gel #7 R Lower Lat Thigh -Combined with other wound No -Current Size (cm) - Length 1.4 -Current Size (cm) - Width 0.6 -Current Size (cm) - Depth 0.2 -Total Square Cm 0.84 -Date of Last Picture (Recall this 06/23/24 field) -Photo Taken Yes -Epithelialization None Present -Tunneling No -Undermining/Tunneling No -Circular Undermining No -Exudate Amt Small -Exudate Type Serosanguineous -Wound Margin Distinct, Outline Attached -Granulation Amt Small (1-33%) -Granulation Quality Red -Slough/Fibrin Yes -Necrosis Amt Large (67-100%) -Necrotic Tissue Type Eschar -Texture (Cherelle-wound Skin Appearance) Assessed, Scarring -Moisture (Cherelle-wound Skin Appearance) Assessed -Color (Cherelle-wound Skin Appearance) Assessed, Erythema -Temperature (Cherelle-wound Skin No Abnormality Appearance) (Pt Warm) -Tenderness on Palpation (Cherelle-wound Yes Skin Appearance) -Ulcer Cleansing Soap and Water -Foul Odor after Cleansing No -Anesthetic Used 5% Lidocaine Gel #6 R Lat Knee -Combined with other wound No -Current Size (cm) - Length 0.1 -Current Size (cm) - Width 0.1 -Current Size (cm) - Depth 0.1 -Total Square Cm 0.01 -Date of Last Picture (Recall this 06/23/24 field) -Photo Taken Yes -Tunneling No -Undermining/Tunneling No -Circular Undermining No -Exudate Amt None Present -Wound Margin Distinct, Outline Attached -Granulation Amt None Present (0 %) -Slough/Fibrin Yes -Necrosis Amt Large (67-100%) -Necrotic Tissue Type Eschar -Texture (Cherelle-wound Skin Appearance) Assessed, Scarring -Moisture (Cherelle-wound Skin Appearance) Assessed -Color (Cherelle-wound Skin Appearance) Assessed, Erythema -Temperature (Cherelle-wound Skin No Abnormality Appearance) (Pt Warm) -Tenderness on Palpation (Cherelle-wound Yes Skin Appearance) -Ulcer Cleansing Soap and Water -Foul Odor after Cleansing No -Anesthetic Used 5% Lidocaine Gel #5 R Med Knee -Combined with other wound No -Current Size (cm) - Length 0.1 -Current Size (cm) - Width 0.1 -Current Size (cm) - Depth 0.1 -Total Square Cm 0.01 -Date of Last Picture (Recall this 06/23/24 field) -Photo Taken Yes -Tunneling No -Undermining/Tunneling No -Circular Undermining No -Exudate Amt Small -Exudate Type Serosanguineous -Wound Margin Distinct, Outline Attached -Granulation Amt Large (67-100%) -Granulation Quality Red -Slough/Fibrin Yes -Necrosis Amt Small (1-33%) -Necrotic Tissue Type Adherent Slough -Texture (Cherelle-wound Skin Appearance) Assessed, Scarring -Moisture (Cherelle-wound Skin Appearance) Assessed -Color (Cherelle-wound Skin Appearance) Assessed -Temperature (Cherelle-wound Skin No Abnormality Appearance) (Pt Warm) -Tenderness on Palpation (Cherelle-wound No Skin Appearance) -Ulcer Cleansing Soap and Water -Foul Odor after Cleansing No -Anesthetic Used 5% Lidocaine Gel #4R Sup Walker -Combined with other wound No -Current Size (cm) - Length 0.2 -Current Size (cm) - Width 0.2 -Current Size (cm) - Depth 0.2 -Total Square Cm 0.04 -Date of Last Picture (Recall this 06/23/24 field) -Photo Taken Yes -Tunneling No -Undermining/Tunneling No -Circular Undermining No -Exudate Amt None Present -Wound Margin Distinct, Outline Attached -Granulation Amt None Present (0 %) -Slough/Fibrin Yes -Necrosis Amt Large (67-100%) -Necrotic Tissue Type Eschar -Texture (Cherelle-wound Skin Appearance) Assessed -Moisture (Cherelle-wound Skin Appearance) Assessed -Color (Cherelle-wound Skin Appearance) Assessed, Erythema -Temperature (Cherelle-wound Skin No Abnormality Appearance) (Pt Warm) -Tenderness on Palpation (Cherelle-wound Yes Skin Appearance) -Ulcer Cleansing Soap and Water -Foul Odor after Cleansing No -Anesthetic Used 5% Lidocaine Gel #3 R. Lat Walker Cluster -Combined with other wound No -Current Size (cm) - Length 3.2 -Current Size (cm) - Width 0.8 -Current Size (cm) - Depth 0.4 -Total Square Cm 2.56 -Date of Last Picture (Recall this 06/23/24 field) -Photo Taken Yes -Tunneling No -Undermining/Tunneling No -Circular Undermining No -Exudate Amt None Present -Wound Margin Distinct, Outline Attached -Granulation Amt None Present (0 %) -Slough/Fibrin Yes -Necrosis Amt Large (67-100%) -Necrotic Tissue Type Eschar -Texture (Cherelle-wound Skin Appearance) Assessed, Scarring -Moisture (Cherelle-wound Skin Appearance) Assessed -Color (Cherelle-wound Skin Appearance) Assessed, Erythema -Temperature (Cherelle-wound Skin No Abnormality Appearance) (Pt Warm) -Tenderness on Palpation (Cherelle-wound No Skin Appearance) -Ulcer Cleansing Soap and Water -Foul Odor after Cleansing No -Anesthetic Used 5% Lidocaine Gel #2 R Lower Walker Cluster -Combined with other wound No -Current Size (cm) - Length 4.6 -Current Size (cm) - Width 1.9 -Current Size (cm) - Depth 0.2 -Total Square Cm 8.74 -Date of Last Picture (Recall this 06/23/24 field) -Photo Taken Yes -Epithelialization None Present -Tunneling No -Undermining/Tunneling No -Circular Undermining No -Exudate Amt None Present -Wound Margin Distinct, Outline Attached -Granulation Amt None Present (0 %) -Slough/Fibrin Yes -Necrosis Amt Large (67-100%) -Necrotic Tissue Type Eschar -Texture (Cherelle-wound Skin Appearance) Assessed -Moisture (Cherelle-wound Skin Appearance) Assessed -Color (Cherelle-wound Skin Appearance) Assessed -Temperature (Cherelle-wound Skin No Abnormality Appearance) (Pt Warm) -Tenderness on Palpation (Cherelle-wound Yes Skin Appearance) -Ulcer Cleansing Soap and Water -Foul Odor after Cleansing No -Anesthetic Used 5% Lidocaine Gel #1 R Lat Calf -Combined with other wound No -Current Size (cm) - Length 1 -Current Size (cm) - Width 1.1 -Current Size (cm) - Depth 0.6 -Total Square Cm 1.1 -Date of Last Picture (Recall this 06/23/24 field) -Photo Taken Yes -Epithelialization None Present -Tunneling No -Undermining/Tunneling No -Circular Undermining No -Exudate Amt None Present -Wound Margin Distinct, Outline Attached -Granulation Amt None Present (0 %) -Slough/Fibrin Yes -Necrosis Amt Large (67-100%) -Necrotic Tissue Type Adherent Slough -Texture (Cherelle-wound Skin Appearance) Assessed -Moisture (Cherelle-wound Skin Appearance) Assessed -Color (Cherelle-wound Skin Appearance) Assessed, Erythema -Temperature (Cherelle-wound Skin No Abnormality Appearance) (Pt Warm) -Tenderness on Palpation (Cherelle-wound Yes Skin Appearance) -Ulcer Cleansing Soap and Water -Foul Odor after Cleansing No -Anesthetic Used 5% Lidocaine Gel Right Calf (cm) 36.2 Right Ankle (cm) 21 Left Calf (cm) 36 Left Ankle (cm) 22 WC - Nurse 2 - General Ulcer CM Notes Start: 06/23/24 10:28 Freq: Status: Active Protocol: Activity Type Activity Date Activity User E-sign Co-sign Detail Recorded Client Recorded Date Recorded By Document 06/23/24 11:44 DS [id number] 06/23/24 12:40 DS 06/23/24 11:44 Wound Center Nurse 2 #16 L Upper Calf Med -Time 11:44 -Correct Patient Yes -Procedure Performed No -Post Debridement (cm) - Length 0.6 -Post Debridement (cm) - Width 0.4 -Post Debridement (cm) - Depth 0.3 -Total Square (Post) (cm) 0.24 -Area of Debridement (cm) - Length 0.6 -Area of Debridement (cm) - Width 0.4 -Total Square (Area) (cm) 0.24 -Tunneling No -Undermining/Tunneling No -Circular Undermining No -Wound/Ulcer Outcome Not Healed #15 L Med Thigh -Time 11:44 -Correct Patient Yes -Procedure Performed No -Post Debridement (cm) - Length 0.9 -Post Debridement (cm) - Width 0.9 -Post Debridement (cm) - Depth 0.2 -Total Square (Post) (cm) 0.81 -Area of Debridement (cm) - Length 0.9 -Area of Debridement (cm) - Width 0.9 -Total Square (Area) (cm) 0.81 -Tunneling No -Undermining/Tunneling No -Circular Undermining No -Wound/Ulcer Outcome Not Healed #14 L Lat Thigh -Time 11:44 -Correct Patient Yes -Procedure Performed No -Post Debridement (cm) - Length 0.4 -Post Debridement (cm) - Width 0.3 -Post Debridement (cm) - Depth 0.1 -Total Square (Post) (cm) 0.12 -Area of Debridement (cm) - Length 0.4 -Area of Debridement (cm) - Width 0.3 -Total Square (Area) (cm) 0.12 -Tunneling No -Undermining/Tunneling No -Circular Undermining No -Wound/Ulcer Outcome Not Healed #13 L Knee Sup -Time 11:44 -Correct Patient Yes -Procedure Performed No -Post Debridement (cm) - Length 0.8 -Post Debridement (cm) - Width 0.3 -Post Debridement (cm) - Depth 0.2 -Total Square (Post) (cm) 0.24 -Area of Debridement (cm) - Length 0.8 -Area of Debridement (cm) - Width 0.3 -Total Square (Area) (cm) 0.24 -Tunneling No -Undermining/Tunneling No -Circular Undermining No -Wound/Ulcer Outcome Not Healed #12 L Lat Knee -Time 11:44 -Correct Patient Yes -Procedure Performed No -Post Debridement (cm) - Length 0.4 -Post Debridement (cm) - Width 0.3 -Post Debridement (cm) - Depth 0.2 -Total Square (Post) (cm) 0.12 -Area of Debridement (cm) - Length 0.4 -Area of Debridement (cm) - Width 0.3 -Total Square (Area) (cm) 0.12 -Tunneling No -Undermining/Tunneling No -Circular Undermining No -Wound/Ulcer Outcome Not Healed #11 L Upper Walker Cluster -Time 11:44 -Correct Patient Yes -Procedure Performed No -Post Debridement (cm) - Length 9.0 -Post Debridement (cm) - Width 5.8 -Post Debridement (cm) - Depth 0.3 -Total Square (Post) (cm) 52.20 -Area of Debridement (cm) - Length 9.0 -Area of Debridement (cm) - Width 5.8 -Total Square (Area) (cm) 52.20 -Tunneling No -Undermining/Tunneling No -Circular Undermining No -Wound/Ulcer Outcome Not Healed #10 L Lat Walker -Time 11:44 -Correct Patient Yes -Procedure Performed No -Post Debridement (cm) - Length 1.7 -Post Debridement (cm) - Width 1.2 -Post Debridement (cm) - Depth 0.3 -Total Square (Post) (cm) 2.04 -Area of Debridement (cm) - Length 1.7 -Area of Debridement (cm) - Width 1.2 -Total Square (Area) (cm) 2.04 -Tunneling No -Undermining/Tunneling No -Circular Undermining No -Wound/Ulcer Outcome Not Healed #9 R Sup Thigh -Time 11:40 -Correct Patient Yes -Procedure Performed No -Post Debridement (cm) - Length 0.3 -Post Debridement (cm) - Width 0.3 -Post Debridement (cm) - Depth 0.1 -Total Square (Post) (cm) 0.09 -Area of Debridement (cm) - Length 0.3 -Area of Debridement (cm) - Width 0.3 -Total Square (Area) (cm) 0.09 -Tunneling No -Undermining/Tunneling No -Circular Undermining No -Wound/Ulcer Outcome Not Healed #8 R Thigh -Time 11:40 -Correct Patient Yes -Procedure Performed No -Post Debridement (cm) - Length 0.5 -Post Debridement (cm) - Width 0.5 -Post Debridement (cm) - Depth 0.2 -Total Square (Post) (cm) 0.25 -Area of Debridement (cm) - Length 0.5 -Area of Debridement (cm) - Width 0.5 -Total Square (Area) (cm) 0.25 -Tunneling No -Undermining/Tunneling No -Circular Undermining No -Wound/Ulcer Outcome Not Healed #7 R Lower Lat Thigh -Time 11:40 -Correct Patient Yes -Procedure Performed No -Post Debridement (cm) - Length 1.4 -Post Debridement (cm) - Width 0.6 -Post Debridement (cm) - Depth 0.2 -Total Square (Post) (cm) 0.84 -Area of Debridement (cm) - Length 1.4 -Area of Debridement (cm) - Width 0.6 -Total Square (Area) (cm) 0.84 -Tunneling No -Undermining/Tunneling No -Circular Undermining No -Wound/Ulcer Outcome Not Healed #6 R Lat Knee -Time 11:40 -Correct Patient Yes -Procedure Performed No -Post Debridement (cm) - Length 0.1 -Post Debridement (cm) - Width 0.1 -Post Debridement (cm) - Depth 0.1 -Total Square (Post) (cm) 0.01 -Area of Debridement (cm) - Length 0.1 -Area of Debridement (cm) - Width 0.1 -Total Square (Area) (cm) 0.01 -Tunneling No -Undermining/Tunneling No -Circular Undermining No -Wound/Ulcer Outcome Not Healed #5 R Med Knee -Time 11:40 -Correct Patient Yes -Procedure Performed No -Post Debridement (cm) - Length 0.1 -Post Debridement (cm) - Width 0.1 -Post Debridement (cm) - Depth 0.1 -Total Square (Post) (cm) 0.01 -Area of Debridement (cm) - Length 0.1 -Area of Debridement (cm) - Width 0.1 -Total Square (Area) (cm) 0.01 -Tunneling No -Undermining/Tunneling No -Circular Undermining No -Wound/Ulcer Outcome Not Healed #4R Sup Walker -Time 11:40 -Correct Patient Yes -Correct Side, Site, Position Yes -Correct Procedure Yes -Procedure Performed Yes -Type of Procedure Debridement -Clinical Debridement Subcutaneous -Tissue Removed Subcutaneous -Post Debridement (cm) - Length 0.2 -Post Debridement (cm) - Width 0.2 -Post Debridement (cm) - Depth 0.2 -Total Square (Post) (cm) 0.04 -Area of Debridement (cm) - Length 0.2 -Area of Debridement (cm) - Width 0.2 -Total Square (Area) (cm) 0.04 -Tunneling No -Undermining/Tunneling No -Circular Undermining No -Wound/Ulcer Outcome Not Healed -Ulcer Cleansing Rinsed/ Irrigated with Saline -Foul Odor after Cleansing No -Bioengineered Tissue No -Bleeding Controlled with Pressure -Treatment Response Procedure Not Tolerated Well -Debridement - Subq, 1st 20sq cm Yes #3 R. Lat Walker Cluster -Time 11:40 -Correct Patient Yes -Procedure Performed No -Post Debridement (cm) - Length 3.2 -Post Debridement (cm) - Width 0.8 -Post Debridement (cm) - Depth 0.4 -Total Square (Post) (cm) 2.56 -Area of Debridement (cm) - Length 3.2 -Area of Debridement (cm) - Width 0.8 -Total Square (Area) (cm) 2.56 -Tunneling No -Undermining/Tunneling No -Circular Undermining No -Wound/Ulcer Outcome Not Healed #2 R Lower Walker Cluster -Time 11:40 -Correct Patient Yes -Correct Side, Site, Position Yes -Correct Procedure Yes -Procedure Performed Yes -Type of Procedure Debridement -Clinical Debridement Subcutaneous -Tissue Removed Subcutaneous -Post Debridement (cm) - Length 4.6 -Post Debridement (cm) - Width 1.9 -Post Debridement (cm) - Depth 0.2 -Total Square (Post) (cm) 8.74 -Area of Debridement (cm) - Length 4.6 -Area of Debridement (cm) - Width 1.9 -Total Square (Area) (cm) 8.74 -Tunneling No -Undermining/Tunneling No -Circular Undermining No -Wound/Ulcer Outcome Not Healed -Ulcer Cleansing Rinsed/ Irrigated with Saline -Foul Odor after Cleansing No -Bioengineered Tissue No -Bleeding Controlled with Pressure -Treatment Response Procedure Not Tolerated Well -Debridement - Subq, 1st 20sq cm No #1 R Lat Calf -Time 11:40 -Correct Patient Yes -Correct Side, Site, Position Yes -Correct Procedure Yes -Procedure Performed Yes -Type of Procedure Debridement -Clinical Debridement Subcutaneous -Tissue Removed Subcutaneous -Post Debridement (cm) - Length 1.0 -Post Debridement (cm) - Width 1.1 -Post Debridement (cm) - Depth 0.6 -Total Square (Post) (cm) 1.10 -Area of Debridement (cm) - Length 1.0 -Area of Debridement (cm) - Width 1.1 -Total Square (Area) (cm) 1.10 -Tunneling No -Undermining/Tunneling No -Circular Undermining No -Wound/Ulcer Outcome Not Healed -Ulcer Cleansing Rinsed/ Irrigated with Saline -Foul Odor after Cleansing No -Bioengineered Tissue No -Bleeding Controlled with Pressure -Treatment Response Procedure Not Tolerated Well -Debridement - Subq, 1st 20sq cm No Pain Scale: 0-10 Numeric Is Patient Pain Free? No RLE -Description Sharp,Aching -Intensity 8 -Duration (hours) Chronic -Pain Aggravating Factors Debridement -Alleviating Factors/Interventions Medication, Distraction, Emotional Support -Comments CETACAINE USED WC - Nurse 3 - General Ulcer D/C NN Start: 06/23/24 10:28 Freq: Status: Active Protocol: Activity Type Activity Date Activity User E-sign Co-sign Detail Recorded Client Recorded Date Recorded By Document 06/23/24 12:03 GM [id number] 06/23/24 12:05 GM Edit Result 06/23/24 12:03 GM (1) [id number] 06/23/24 12:14 GM (1) right - Lotion applied to leg before => No compression wrap - Compression Wrap => Adolfo Wrap left - Lotion applied to leg before => No compression wrap - Compression Wrap => Adolfo Wrap 06/23/24 12:03 Wound Care Center Nurse 3 #16 L Upper Calf Med -Ulcer Cleansing Soap and Water -Foul Odor after Cleansing No -Negative Pressure Wound Therapy N/A -Primary Dressing Applied C Hydrogel -Primary Dressing Covered/Secured with Dry Gauze & Roll Gauze, Secured with Tape -Hydrogel 1 #9 R Sup Thigh -Ulcer Cleansing Soap and Water -Foul Odor after Cleansing No -Negative Pressure Wound Therapy N/A -Primary Dressing Applied C Hydrogel -Primary Dressing Covered/Secured with Dry Gauze & Roll Gauze, Secured with Tape -Hydrogel 1 right -Lotion applied to leg before No compression wrap -Compression Wrap Adolfo Wrap left -Lotion applied to leg before No compression wrap -Compression Wrap Adolfo Wrap Pain Scale: 0-10 Numeric Is Patient Pain Free? Yes - Visit Discharge Discharge Condition Stable Ambulatory Status Ambulatory Transportation Private Auto Charges/Coding Multi Select Codes Visit Charges Office Visit/Consults: 44785 OV L4 New 45 min Integumentary Integumentary CPT Codes: 22034 Suzanna subq tissue 20 sq cm/< Assessment/Plan Assessment/Plan (1) Non-pressure chronic ulcer of right lower leg with fat layer exposed: CODE(S): L97.912 - Non-pressure chronic ulcer of unspecified part of rightlower leg with fat layer exposed (2) Non-pressure chronic ulcer of left lower leg with fat layer exposed: CODE(S): L97.922 - Non-pressure chronic ulcer of unspecified part of left lower leg with fat layer exposed (3) Skin necrosis: CODE(S): I96 - Gangrene, not elsewhere classified (4) IBS (irritable bowel syndrome): (5) Endometriosis: CODE(S): N80.9 - Endometriosis, unspecified (6) ADD (attention deficit disorder): CODE(S): F98.8 - Other specified behavioral and emotional disorders with onset usually occurring in childhood and adolescence (7) Nicotine dependence: CODE(S): F17.200 - Nicotine dependence, unspecified, uncomplicated (8) Anxiety: CODE(S): F41.9 - Anxiety disorder, unspecified (9) Depression: CODE(S): F32.9 - Major depressive disorder, single episode, unspecified (10) Asthma: CODE(S): J45.909 - Unspecified asthma, uncomplicated (11) Seizures: (12) Tobacco abuse counseling: CODE(S): Z71.6 - Tobacco abuse counseling (13) History of tonsillectomy: CODE(S): Z90.89 - Acquired absence of other organs (14) History of D&C: CODE(S): Z98.890 - Other specified postprocedural states PLAN: Plan This is a 44-year-old female who has a known history of heroin abuse by means ofinjection. She has also known to have been hospitalized approximately 1 year ago with septicemia/sepsis. We are to request records from the [facility], including those from Dr. Boni Lambert, who is a specialist in cardiovascular medicine. It appears as though the patient may have undergone anechocardiogram in the past, as well as other diagnostic tests. Swab cultures have been obtained for culture and sensitivity. Results will be awaited. We are to implement the use of collagenase Santyl topically to each of the patient's ulcerations, and a prescription has been provided as well as a coupon to mitigate expense. Routine laboratory studies are to be obtained. A lower extremity arterial ultrasound will be obtained to assess for the presence of pseudoaneurysm or other intraluminal sources of athero-, thrombo-, or septic embolism. There is a high degree of suspicion that the patient's multiple lowerextremity ulcerations are due to embolic phenomenon, in consideration that she is a former heroin drug user by means of injection. Consideration will also be given to obtaining an echocardiogram as well, to determine whether infectious endocarditis and intracardiac vegetations may account for the patient's multiplelower extremity ulcerations. An alternative etiology may be a vasculitis such as leukocytoclastic vasculitis. The patient has been encouraged to discontinue her smoking habit. She has also been advised to optimize her nutritional intake. She is to return in 1 week for reevaluation. Total time: 45-minute 06/27/241920 <Electronically signed by Mario Potts MD> Cosigner Signature (if applicable): CC: ~ Signed [facility] Work Phone: [phone] History and physical note [facility] [address] [place] [address] H&P Exam - Wound Care 06/27/24 1832 MR#: [id number] Acct: [id number] Name: LISA CHAUDHRY Rep #:[id number] : 1980 44 From: Mario Espino PCP: Dr. Noni Pablo MD Status:REG RC R Location: History of Present Illness Date of Service: 06/23/24 Chief Complaint: Multiple necrotic ulcerations in the lower extremities bilaterally History of Wound: This is a 44-year-old female who presented with multiple necrotic ulcerations in both lower extremities. She states that these have beenpresent for several months. She stated that she had been evaluated recently at the [facility] by Dr. Boni Lambert, a specialist in cardiovascular medicine. The patient stated that she has had similar ulcerations on her upper extremities, butthese have subsequently healed. The patient has a history of heroin addiction, and admits to injecting heroin for several years in the past, though claims to have overcome her addiction as of January2024. When questioned, she indicated that her usual sites of injection wearing her arms, but that she had also occasionally used injection sites in her legs. The patient describes a hospitalization approximately 1 year ago, the description ofwhich suggests she was treated for septicemia/sepsis. Thepatient also admits to smoking approximately 7 cigarettes/day. She also vapes. 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 Tobacco abuse counseling Anxiety Substance abuse Depression Home Medications ?Medication ?Instructions ?Recorded ?Last Taken ?Type albuterol sulfate 90 mcg/actuation 1 puff inhalation Q 6H PRN PRN 02/27/13 Unknown History aerosol inhaler (Ventolin HFA) Wheezing sumatriptan succinate 50 mg tablet 50 mg PO .X1 PRN Unknown History buspirone 5 mg tablet 5 mg PO TID 06/23/24 Unknown History clonidine HCl 0.1 mg tablet 0.1 mg PO BID 06/23/24 Unk nown History escitalopram oxalate 20 mg tablet 20 mg PO DAILY 06/23 Unknown History polyethylene glycol 3350 17 17 g PO QWEEK PRN constipa tion 06/23/24 Unknown History gram/dose oral powder telmisartan 40 mg tablet 20 mg PO DAILY 06/23/24 Unkn own History zolpidem 5 mg tablet 5 mg PO QHS 06/23/24 Unknown History Allergy/AdvReac Type Severity Reaction Status Date / Time hydromorphone HCl (From AdvReac Itching Verified 06/23/24 11:24 Dilaudid) Surgical History History of D&C History of tonsillectomy Social History Smoking Status: Current every day smoker tobacco type: cigarettes Vital Signs Vital Signs Vital Signs: Weight Weight: 162 lb Body Mass Index (BMI) 24.6 Physical Exam Const alert, oriented x3, no apparent distress, average body habitus, no limitations and well nourished Constitutional Narrative: The patient's BMI is 24.6. General Appearance: cooperative, comfortable and well developed Orientation / Consciousness: awake, oriented to person, oriented to place and oriented to time Exam Limitations: no limitations HEENT normocephalic and head/scalp atraumatic Head and Scalp: normal to inspection, normocephalic and atraumatic Face and Sinus: normal facial exam Nose: external nose normal External Ear: external ears normal Eyes EOMs intact bilaterally General Eye: normal appearance of both eyes Resp normal respiratory effort, normal air movement, no retractions and no use of accessory muscles Effort and Inspection: able to speak in complete sentences Extremity no calf tenderness General Extremity: Negative for clubbing or cyanosis Skin Wound Narrative: Numerous ulcerations are noted in both lower extremities. They are generally small in size. Most appear to extend through all layers of the dermis and into the subcutaneous tissues. Most demonstrate frankly necrotic tissue within. Many demonstrate a rim of erythema, suggestive of cellulitis. Ulcer margins aregenerally not well beveled. Dimensions and locations of the ulcerations are documented elsewhere. Photographic documentation has also been undertaken. Hair: normal Neuro oriented x3, CN's II-XII intact bilaterally, moves all extremities, no focal motor deficits and no sensory deficits noted Sensorium / Orientation: awake, alert, oriented to person, oriented to place, oriented to time and orientation impaired Speech: speech normal Psych Appearance: grossly normal and appropriate Attitude: calm Activity / Motor Behavior: appropriate eye contact Speech: normal speech Mood & Affect: euthymic mood Thought Process: normal thought process Thought Content: normal thought content Attention / Concentration: attention grossly intact Debridement Note Debridement Note Wound debrided: Right lower extremity ulcerations Laterality: Right Type of Debridement: Excisional debridement Anesthesia Used: 5% Lidocaine Gel and Cetacaine Depth: Down to and including healthy tissue and in the subcutaneous layer Percentage of wound debrided: 100 Instrument Used: 5mm curette Tissue Removed: Frankly necrotic tissue, eschar, and bioburden Severity: Fat Layer Exposed Amount of bleeding with debridement: Mild Bleeding Controlled with: Compression and gauze Patient tolerated procedure: Patient tolerated procedure well Debridement Free Text: Using a sterile, disposable 5 mm curette several of the right lower extremity ulcerations were debrided. However, the presence of frankly tissue was highly resistant to the debridement. Additionally, the presence of multiple ulcerations precluded debridement of all ulcerations at thetime of the patient's initial visit. It is intended that collagenase Santyl will be prescribed to initiate the enzymatic debridement of these multiple ulcerations, which will likely render subsequent mechanical debridements more feasible. Swabs were obtained of 2 separate and distinct woundsfor culture andsensitivity for aerobic and anaerobic bacteria. Post-Debridement Measurements and Additional Note: Post-Debridement Measurements/Treatment JESSY - Nurse 1 - General Ulcer Assessment Start: 06/23/24 10:28 Freq: Status: Active Protocol: IBRAHIMA Activity Type Activity Date Activity User E-sign Co-sign Detail Recorded Client Recorded Date Recorded By Document 06/23/24 10:28 [facility] [id number] 06/23/24 11:24 BMF 06/23/24 10:28 - Today's Visit Information Type of service Initial Visit Arrival Mode Ambulatory Transfer Assistance None Patient Identification Verified (Name & Yes ) Patient Requires Transmission-Based No Precautions Height and Weight Height 5 ft 8 in Weight 162 lb Weight in Pounds 162.0 lbs Body Mass Index (BMI) 24.6 BMI Classification Normal Vital Signs Temperature (97.8 F-99.1 F) 97.3 F L Temperature Source Temporal Pulse Rate (60-100) 83 Pulse Location Monitor Respiratory Rate (12-18) 16 Respiratory rate source Observation Oxygen Delivery Method Room Air Blood Pressure (90/60-120/80) 132/98 H Blood Pressure Mean 109 Source Monitor Position Sitting Blood Pressure Location Left Arm History Since Last Visit- (Skip if this is Patient's initial visit) Left Footwear Regular Shoe Right Footwear Regular Shoe Pain Scale: 0-10 Numeric Is Patient Pain Free? Yes Communication Assessment Preferred language [place] Machine Tool Rebuilder Required No Able to Read Yes Able to Write Yes Communication Tools None Right Hearing Abillity Normal Left Hearing Abillity Normal Visual Assistive Devices Glasses, Contacts Teaching Assessment Preferences Verbal,Written, Audio/Visual, Demonstration Barriers to Learning None Readiness To Learn Excellent Willingness to Engage in Self Management High Activies Readiness to Engage in Self Management High Activities Anxiety Level Calm Cooperation Cooperative Perception Coherent Interest in Health Problem Asks Questions Education Importance Acknowledges Need Does Patient Smoke tobacco or other No substances Smoking Status Current every day smoker Is Patient Diabetic No Functional Assessment Recent Decline in Ability to Perform Denies Any Declines Culture/[employer]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 Cultural/[employer]ist Needs that may affect No Treatment Plan Teaching: Wound Center *Welcome to the Wound Center -Person Taught Patient -Teaching Method Discussion -Response to teaching Verbalize Understanding - Nurse 1 - General Ulcer Measurement Start: 06/23/24 10:28 Freq: Status: Active Protocol: Activity Type Activity Date Activity User E-sign Co-sign Detail Recorded Client Recorded Date Recorded By Document 06/23/24 10:28 [facility] [id number] 06/23/24 11:24 BM[facility] Edit Result 06/23/24 10:28 BMF (1) [id number] 06/23/24 11:47 BM (1) #16 L Upper Calf Med - Current Size (cm) - Length => 0.6 - Current Size (cm) - Width => 0.4 - Current Size (cm) - Depth => 0.3 - Total Square Cm => 0.24 - Date of Last Picture (Recall this => 06/23/24 field) - Photo Taken => Yes - Tunneling => No - Undermining/Tunneling => No - Circular Undermining => No - Exudate Amt => None Present - Wound Margin => Distinct, Outline => Attached - Granulation Amt => None Present (0%) - Slough/Fibrin => Yes - Necrosis Amt => Large (67-100%) - Necrotic Tissue Type => Eschar - Texture (Cherelle-wound Skin Appearance) => Assessed - Moisture (Cherelle-wound Skin Appearance) => Assessed - Color (Cherelle-wound Skin Appearance) => Assessed - Temperature (Cherelle-wound Skin => No Abnormality (Pt Appearance) => Warm) - Tenderness on Palpation (Cherelle-wound => Yes Skin Appearance) - Ulcer Cleansing => Soap and Water - Foul Odor after Cleansing => No - Anesthetic Used => 5% Lidocaine Gel #15 L Med Thigh - Current Size (cm) - Length => 0.9 - Current Size (cm) - Width => 0.9 - Current Size (cm) - Depth => 0.2 - Total Square Cm => 0.81 - Date of Last Picture (Recall this => 06/23/24 field) - Photo Taken => Yes - Tunneling => No - Undermining/Tunneling => No - Circular Undermining => No - Exudate Amt => None Present - Wound Margin => Distinct, Outline => Attached - Granulation Amt => None Present (0%) - Slough/Fibrin => Yes - Necrosis Amt => Large (67-100%) - Necrotic Tissue Type => Eschar - Texture (Cherelle-wound Skin Appearance) => Assessed,Scarring - Moisture (Cherelle-wound Skin Appearance) => Assessed - Color (Cherelle-wound Skin Appearance) => Assessed,Erythema - Temperature (Cherelle-wound Skin => No Abnormality (Pt Appearance) => Warm) - Tenderness on Palpation (Cherelle-wound => Yes Skin Appearance) - Ulcer Cleansing => Soap and Water - Foul Odor after Cleansing => No - Anesthetic Used => 5% Lidocaine Gel #14 L Lat Thigh - Current Size (cm) - Length => 0.4 - Current Size (cm) - Width => 0.3 - Current Size (cm) - Depth => 0.1 - Total Square Cm => 0.12 - Date of Last Picture (Recall this => 06/23/24 field) - Photo Taken => Yes - Tunneling => No - Undermining/Tunneling => No - Circular Undermining => No - Exudate Amt => None Present - Wound Margin => Distinct, Outline => Attached - Granulation Amt => None Present (0%) - Slough/Fibrin => Yes - Necrosis Amt => Large (67-100%) - Necrotic Tissue Type => Eschar - Texture (Cherelle-wound Skin Appearance) => Assessed,Scarring - Moisture (Cherelle-wound Skin Appearance) => Assessed - Color (Cherelle-wound Skin Appearance) => Assessed,Erythema - Temperature (Cherelle-wound Skin => No Abnormality (Pt Appearance) => Warm) - Tenderness on Palpation (Cherelle-wound => No Skin Appearance) - Ulcer Cleansing => Soap and Water - Foul Odor after Cleansing => No - Anesthetic Used => 5% Lidocaine Gel #13 L Knee Sup - Current Size (cm) - Length => 0.8 - Current Size (cm) - Width => 0.3 - Current Size (cm) - Depth => 0.2 - Total Square Cm => 0.24 - Date of Last Picture (Recall this => 06/23/24 field) - Photo Taken => Yes - Tunneling => No - Undermining/Tunneling => No - Circular Undermining => No - Exudate Amt => None Present - Wound Margin => Distinct, Outline => Attached - Granulation Amt => None Present (0%) - Slough/Fibrin => Yes - Necrosis Amt => Large (67-100%) - Necrotic Tissue Type => Eschar - Texture (Cherelle-wound Skin Appearance) => Assessed,Scarring - Moisture (Cherelle-wound Skin Appearance) => Assessed - Color (Cherelle-wound Skin Appearance) => Assessed,Erythema - Temperature (Cherelle-wound Skin => No Abnormality (Pt Appearance) => Warm) - Tenderness on Palpation (Cherelle-wound => No Skin Appearance) - Ulcer Cleansing => Soap and Water - Foul Odor after Cleansing => No - Anesthetic Used => 5% Lidocaine Gel #12 L Lat Knee - Current Size (cm) - Length => 0.4 - Current Size (cm) - Width => 0.3 - Current Size (cm) - Depth => 0.2 - Total Square Cm => 0.12 - Date of Last Picture (Recall this => 06/23/24 field) - Photo Taken => Yes - Tunneling => No - Undermining/Tunneling => No - Circular Undermining => No - Exudate Amt => None Present - Wound Margin => Distinct, Outline => Attached - Granulation Amt => None Present (0%) - Slough/Fibrin => Yes - Necrosis Amt => Large (67-100%) - Necrotic Tissue Type => Eschar - Texture (Cherelle-wound Skin Appearance) => Assessed,Scarring - Moisture (Cherelle-wound Skin Appearance) => Assessed - Color (Cherelle-wound Skin Appearance) => Assessed,Erythema - Temperature (Cherelle-wound Skin => No Abnormality (Pt Appearance) => Warm) - Tenderness on Palpation (Cherelle-wound => Yes Skin Appearance) - Ulcer Cleansing => Soap and Water - Foul Odor after Cleansing => No - Anesthetic Used => 5% Lidocaine Gel #11 L Upper Walker Cluster - Current Size (cm) - Length => 9 - Current Size (cm) - Width => 5.8 - Current Size (cm) - Depth => 0.3 - Total Square Cm => 52.2 - Date of Last Picture (Recall this => 06/23/24 field) - Photo Taken => Yes - Tunneling => No - Undermining/Tunneling => No - Circular Undermining => No - Exudate Amt => None Present - Wound Margin => Distinct, Outline => Attached - Granulation Amt => None Present (0%) - Slough/Fibrin => Yes - Necrosis Amt => Large (67-100%) - Necrotic Tissue Type => Eschar - Texture (Cherelle-wound Skin Appearance) => Assessed,Scarring - Moisture (Cherelle-wound Skin Appearance) => Assessed - Color (Cherelle-wound Skin Appearance) => Assessed,Erythema - Temperature (Cherelle-wound Skin => No Abnormality (Pt Appearance) => Warm) - Tenderness on Palpation (Cherelle-wound => Yes Skin Appearance) - Ulcer Cleansing => Soap and Water - Foul Odor after Cleansing => No - Anesthetic Used => 5% Lidocaine Gel #10 L Lat Walker - Current Size (cm) - Length => 1.7 - Current Size (cm) - Width => 1.2 - Current Size (cm) - Depth => 0.3 - Total Square Cm => 2.04 - Date of Last Picture (Recall this => 06/23/24 field) - Photo Taken => Yes - Tunneling => No - Undermining/Tunneling => No - Circular Undermining => No - Exudate Amt => None Present - Wound Margin => Distinct, Outline => Attached - Granulation Amt => None Present (0%) - Slough/Fibrin => Yes - Necrosis Amt => Large (67-100%) - Necrotic Tissue Type => Eschar - Texture (Cherelle-wound Skin Appearance) => Assessed,Scarring - Moisture (Cherelle-wound Skin Appearance) => Assessed - Color (Cherelle-wound Skin Appearance) => Assessed,Erythema - Temperature (Cherelle-wound Skin => No Abnormality (Pt Appearance) => Warm) - Tenderness on Palpation (Cherelle-wound => Yes Skin Appearance) - Ulcer Cleansing => Soap and Water - Foul Odor after Cleansing => No - Anesthetic Used => 5% Lidocaine Gel #9 R Sup Thigh - Current Size (cm) - Length => 0.3 - Current Size (cm) - Width => 0.3 - Current Size (cm) - Depth => 0.1 - Total Square Cm => 0.09 - Date of Last Picture (Recall this => 06/23/24 field) - Photo Taken => Yes - Tunneling => No - Undermining/Tunneling => No - Circular Undermining => No - Exudate Amt => None Present - Wound Margin => Distinct, Outline => Attached - Granulation Amt => None Present (0%) - Slough/Fibrin => Yes - Necrosis Amt => Large (67-100%) - Necrotic Tissue Type => Eschar - Texture (Cherelle-wound Skin Appearance) => Assessed,Scarring - Moisture (Cherelle-wound Skin Appearance) => Assessed - Color (Cherelle-wound Skin Appearance) => Assessed,Erythema - Temperature (Cherelle-wound Skin => No Abnormality (Pt Appearance) => Warm) - Tenderness on Palpation (Cherelle-wound => Yes Skin Appearance) - Ulcer Cleansing => Soap and Water - Foul Odor after Cleansing => No - Anesthetic Used => 5% Lidocaine Gel #8 R Thigh - Current Size (cm) - Length => 0.5 - Current Size (cm) - Width => 0.5 - Current Size (cm) - Depth => 0.2 - Total Square Cm => 0.25 - Date of Last Picture (Recall this => 06/23/24 field) - Photo Taken => Yes - Tunneling => No - Undermining/Tunneling => No - Circular Undermining => No - Exudate Amt => None Present - Wound Margin => Distinct, Outline => Attached - Granulation Amt => None Present (0%) - Slough/Fibrin => Yes - Necrosis Amt => Large (67-100%) - Necrotic Tissue Type => Eschar - Texture (Cherelle-wound Skin Appearance) => Assessed,Scarring - Moisture (Cherelle-wound Skin Appearance) => Assessed - Color (Cherelle-wound Skin Appearance) => Assessed,Erythema - Temperature (Cherelle-wound Skin => No Abnormality (Pt Appearance) => Warm) - Tenderness on Palpation (Cherelle-wound => Yes Skin Appearance) - Ulcer Cleansing => Soap and Water - Foul Odor after Cleansing => No - Anesthetic Used => 5% Lidocaine Gel #7 R Lower Lat Thigh - Current Size (cm) - Length => 1.4 - Current Size (cm) - Width => 0.6 - Current Size (cm) - Depth => 0.2 - Total Square Cm => 0.84 - Date of Last Picture (Recall this => 06/23/24 field) - Photo Taken => Yes - Epithelialization => None Present - Tunneling => No - Undermining/Tunneling => No - Circular Undermining => No - Exudate Amt => Small - Exudate Type => Serosanguineous - Wound Margin => Distinct, Outline => Attached - Granulation Amt => Small (1-33%) - Granulation Quality => Red - Slough/Fibrin => Yes - Necrosis Amt => Large (67-100%) - Necrotic Tissue Type => Eschar - Texture (Cherelle-wound Skin Appearance) => Assessed,Scarring - Moisture (Cherelle-wound Skin Appearance) => Assessed - Color (Cherelle-wound Skin Appearance) => Assessed,Erythema - Temperature (Cherelle-wound Skin => No Abnormality (Pt Appearance) => Warm) - Tenderness on Palpation (Cherelle-wound => Yes Skin Appearance) - Ulcer Cleansing => Soap and Water - Foul Odor after Cleansing => No - Anesthetic Used => 5% Lidocaine Gel #6 R Lat Knee - Current Size (cm) - Length => 0.1 - Current Size (cm) - Width => 0.1 - Current Size (cm) - Depth => 0.1 - Total Square Cm => 0.01 - Date of Last Picture (Recall this => 06/23/24 field) - Photo Taken => Yes - Tunneling => No - Undermining/Tunneling => No - Circular Undermining => No - Exudate Amt => None Present - Wound Margin => Distinct, Outline => Attached - Granulation Amt => None Present (0%) - Slough/Fibrin => Yes - Necrosis Amt => Large (67-100%) - Necrotic Tissue Type => Eschar - Texture (Cherelle-wound Skin Appearance) => Assessed,Scarring - Moisture (Cherelle-wound Skin Appearance) => Assessed - Color (Cherelle-wound Skin Appearance) => Assessed,Erythema - Temperature (Cherelle-wound Skin => No Abnormality (Pt Appearance) => Warm) - Tenderness on Palpation (Cherelle-wound => Yes Skin Appearance) - Ulcer Cleansing => Soap and Water - Foul Odor after Cleansing => No - Anesthetic Used => 5% Lidocaine Gel #5 R Med Knee - Current Size (cm) - Length => 0.1 - Current Size (cm) - Width => 0.1 - Current Size (cm) - Depth => 0.1 - Total Square Cm => 0.01 - Date of Last Picture (Recall this => 06/23/24 field) - Photo Taken => Yes - Tunneling => No - Undermining/Tunneling => No - Circular Undermining => No - Exudate Amt => Small - Exudate Type => Serosanguineous - Wound Margin => Distinct, Outline => Attached - Granulation Amt => Large (67-100%) - Granulation Quality => Red - Slough/Fibrin => Yes - Necrosis Amt => Small (1-33%) - Necrotic Tissue Type => Adherent Slough - Texture (Cherelel-wound Skin Appearance) => Assessed,Scarring - Moisture (Cherelle-wound Skin Appearance) => Assessed - Color (Cherelle-wound Skin Appearance) => Assessed - Temperature (Cherelle-wound Skin => No Abnormality (Pt Appearance) => Warm) - Tenderness on Palpation (Cherelle-wound => No Skin Appearance) - Ulcer Cleansing => Soap and Water - Foul Odor after Cleansing => No - Anesthetic Used => 5% Lidocaine Gel #4R Sup Walker - Current Size (cm) - Length => 0.2 - Current Size (cm) - Width => 0.2 - Current Size (cm) - Depth => 0.2 - Total Square Cm => 0.04 - Date of Last Picture (Recall this => 06/23/24 field) - Photo Taken => Yes - Tunneling => No - Undermining/Tunneling => No - Circular Undermining => No - Exudate Amt => None Present - Wound Margin => Distinct, Outline => Attached - Granulation Amt => None Present (0%) - Slough/Fibrin => Yes - Necrosis Amt => Large (67-100%) - Necrotic Tissue Type => Eschar - Texture (Cherelle-wound Skin Appearance) => Assessed - Moisture (Cherelle-wound Skin Appearance) => Assessed - Color (Cherelle-wound Skin Appearance) => Assessed,Erythema - Temperature (Cherelle-wound Skin => No Abnormality (Pt Appearance) => Warm) - Tenderness on Palpation (Cherelle-wound => Yes Skin Appearance) - Ulcer Cleansing => Soap and Water - Foul Odor after Cleansing => No - Anesthetic Used => 5% Lidocaine Gel #3 R. Lat Walker Cluster - Current Size (cm) - Length => 3.2 - Current Size (cm) - Width => 0.8 - Current Size (cm) - Depth => 0.4 - Total Square Cm => 2.56 - Date of Last Picture (Recall this => 06/23/24 field) - Photo Taken => Yes - Tunneling => No - Undermining/Tunneling => No - Circular Undermining => No - Exudate Amt => None Present - Wound Margin => Distinct, Outline => Attached - Granulation Amt => None Present (0%) - Slough/Fibrin => Yes - Necrosis Amt => Large (67-100%) - Necrotic Tissue Type => Eschar - Texture (Cherelle-wound Skin Appearance) => Assessed,Scarring - Moisture (Cherelle-wound Skin Appearance) => Assessed - Color (Cherelle-wound Skin Appearance) => Assessed,Erythema - Temperature (Cherelle-wound Skin => No Abnormality (Pt Appearance) => Warm) - Tenderness on Palpation (Cherelle-wound => No Skin Appearance) - Ulcer Cleansing => Soap and Water - Foul Odor after Cleansing => No - Anesthetic Used => 5% Lidocaine Gel #2 R Lower Walker Cluster - Current Size (cm) - Length => 4.6 - Current Size (cm) - Width => 1.9 - Current Size (cm) - Depth => 0.2 - Total Square Cm => 8.74 - Date of Last Picture (Recall this => 06/23/24 field) - Photo Taken => Yes - Epithelialization => None Present - Tunneling => No - Undermining/Tunneling => No - Circular Undermining => No - Exudate Amt => None Present - Wound Margin => Distinct, Outline => Attached - Granulation Amt => None Present (0%) - Slough/Fibrin => Yes - Necrosis Amt => Large (67-100%) - Necrotic Tissue Type => Eschar - Texture (Cherelle-wound Skin Appearance) => Assessed - Moisture (Cherelle-wound Skin Appearance) => Assessed - Color (Cherelle-wound Skin Appearance) => Assessed - Temperature (Cherelle-wound Skin => No Abnormality (Pt Appearance) => Warm) - Tenderness on Palpation (Cherelle-wound => Yes Skin Appearance) - Ulcer Cleansing => Soap and Water - Foul Odor after Cleansing => No - Anesthetic Used => 5% Lidocaine Gel #1 R Lat Calf - Current Size (cm) - Length => 1 - Current Size (cm) - Width => 1.1 - Current Size (cm) - Depth => 0.6 - Total Square Cm => 1.1 - Date of Last Picture (Recall this => 06/23/24 field) - Photo Taken => Yes - Epithelialization => None Present - Tunneling => No - Undermining/Tunneling => No - Circular Undermining => No - Exudate Amt => None Present - Wound Margin => Distinct, Outline => Attached - Granulation Amt => None Present (0%) - Slough/Fibrin => Yes - Necrosis Amt => Large (67-100%) - Necrotic Tissue Type => Adherent Slough - Texture (Cherelle-wound Skin Appearance) => Assessed - Moisture (Cherelle-wound Skin Appearance) => Assessed - Color (Cherelle-wound Skin Appearance) => Assessed,Erythema - Temperature (Cherelle-wound Skin => No Abnormality (Pt Appearance) => Warm) - Tenderness on Palpation (Cherelle-wound => Yes Skin Appearance) - Ulcer Cleansing => Soap and Water - Foul Odor after Cleansing => No - Anesthetic Used => 5% Lidocaine Gel 06/23/24 10:28 Wound Center Nurse 1 #16 L Upper Calf Med -Combined with other wound No -Current Size (cm) - Length 0.6 -Current Size (cm) - Width 0.4 -Current Size (cm) - Depth 0.3 -Total Square Cm 0.24 -Date of Last Picture (Recall this 06/23/24 field) -Photo Taken Yes -Tunneling No -Undermining/Tunneling No -Circular Undermining No -Exudate Amt None Present -Wound Margin Distinct, Outline Attached -Granulation Amt None Present (0 %) -Slough/Fibrin Yes -Necrosis Amt Large (67-100%) -Necrotic Tissue Type Eschar -Texture (Cherelle-wound Skin Appearance) Assessed -Moisture (Cherelle-wound Skin Appearance) Assessed -Color (Cherelle-wound Skin Appearance) Assessed -Temperature (Cherelle-wound Skin No Abnormality Appearance) (Pt Warm) -Tenderness on Palpation (Cherelle-wound Yes Skin Appearance) -Ulcer Cleansing Soap and Water -Foul Odor after Cleansing No -Anesthetic Used 5% Lidocaine Gel #15 L Med Thigh -Combined with other wound No -Current Size (cm) - Length 0.9 -Current Size (cm) - Width 0.9 -Current Size (cm) - Depth 0.2 -Total Square Cm 0.81 -Date of Last Picture (Recall this 06/23/24 field) -Photo Taken Yes -Tunneling No -Undermining/Tunneling No -Circular Undermining No -Exudate Amt None Present -Wound Margin Distinct, Outline Attached -Granulation Amt None Present (0 %) -Slough/Fibrin Yes -Necrosis Amt Large (67-100%) -Necrotic Tissue Type Eschar -Texture (Cherelle-wound Skin Appearance) Assessed, Scarring -Moisture (Cherelle-wound Skin Appearance) Assessed -Color (Cherelle-wound Skin Appearance) Assessed, Erythema -Temperature (Cherelle-wound Skin No Abnormality Appearance) (Pt Warm) -Tenderness on Palpation (Cherelle-wound Yes Skin Appearance) -Ulcer Cleansing Soap and Water -Foul Odor after Cleansing No -Anesthetic Used 5% Lidocaine Gel #14 L Lat Thigh -Combined with other wound No -Current Size (cm) - Length 0.4 -Current Size (cm) - Width 0.3 -Current Size (cm) - Depth 0.1 -Total Square Cm 0.12 -Date of Last Picture (Recall this 06/23/24 field) -Photo Taken Yes -Tunneling No -Undermining/Tunneling No -Circular Undermining No -Exudate Amt None Present -Wound Margin Distinct, Outline Attached -Granulation Amt None Present (0 %) -Slough/Fibrin Yes -Necrosis Amt Large (67-100%) -Necrotic Tissue Type Eschar -Texture (Cherelle-wound Skin Appearance) Assessed, Scarring -Moisture (Cherelle-wound Skin Appearance) Assessed -Color (Cherelle-wound Skin Appearance) Assessed, Erythema -Temperature (Cherelle-wound Skin No Abnormality Appearance) (Pt Warm) -Tenderness on Palpation (Cherelle-wound No Skin Appearance) -Ulcer Cleansing Soap and Water -Foul Odor after Cleansing No -Anesthetic Used 5% Lidocaine Gel #13 L Knee Sup -Combined with other wound No -Current Size (cm) - Length 0.8 -Current Size (cm) - Width 0.3 -Current Size (cm) - Depth 0.2 -Total Square Cm 0.24 -Date of Last Picture (Recall this 06/23/24 field) -Photo Taken Yes -Tunneling No -Undermining/Tunneling No -Circular Undermining No -Exudate Amt None Present -Wound Margin Distinct, Outline Attached -Granulation Amt None Present (0 %) -Slough/Fibrin Yes -Necrosis Amt Large (67-100%) -Necrotic Tissue Type Eschar -Texture (Cherelle-wound Skin Appearance) Assessed, Scarring -Moisture (Cherelle-wound Skin Appearance) Assessed -Color (Cherelle-wound Skin Appearance) Assessed, Erythema -Temperature (Cherelle-wound Skin No Abnormality Appearance) (Pt Warm) -Tenderness on Palpation (Cherelle-wound No Skin Appearance) -Ulcer Cleansing Soap and Water -Foul Odor after Cleansing No -Anesthetic Used 5% Lidocaine Gel #12 L Lat Knee -Combined with other wound No -Current Size (cm) - Length 0.4 -Current Size (cm) - Width 0.3 -Current Size (cm) - Depth 0.2 -Total Square Cm 0.12 -Date of Last Picture (Recall this 06/23/24 field) -Photo Taken Yes -Tunneling No -Undermining/Tunneling No -Circular Undermining No -Exudate Amt None Present -Wound Margin Distinct, Outline Attached -Granulation Amt None Present (0 %) -Slough/Fibrin Yes -Necrosis Amt Large (67-100%) -Necrotic Tissue Type Eschar -Texture (Cherelle-wound Skin Appearance) Assessed, Scarring -Moisture (Cherelle-wound Skin Appearance) Assessed -Color (Cherelle-wound Skin Appearance) Assessed, Erythema -Temperature (Cherelle-wound Skin No Abnormality Appearance) (Pt Warm) -Tenderness on Palpation (Cherelle-wound Yes Skin Appearance) -Ulcer Cleansing Soap and Water -Foul Odor after Cleansing No -Anesthetic Used 5% Lidocaine Gel #11 L Upper Walker Cluster -Combined with other wound No -Current Size (cm) - Length 9 -Current Size (cm) - Width 5.8 -Current Size (cm) - Depth 0.3 -Total Square Cm 52.2 -Date of Last Picture (Recall this 06/23/24 field) -Photo Taken Yes -Tunneling No -Undermining/Tunneling No -Circular Undermining No -Exudate Amt None Present -Wound Margin Distinct, Outline Attached -Granulation Amt None Present (0 %) -Slough/Fibrin Yes -Necrosis Amt Large (67-100%) -Necrotic Tissue Type Eschar -Texture (Cherelle-wound Skin Appearance) Assessed, Scarring -Moisture (Cherelle-wound Skin Appearance) Assessed -Color (Cherelle-wound Skin Appearance) Assessed, Erythema -Temperature (Cherelle-wound Skin No Abnormality Appearance) (Pt Warm) -Tenderness on Palpation (Cherelle-wound Yes Skin Appearance) -Ulcer Cleansing Soap and Water -Foul Odor after Cleansing No -Anesthetic Used 5% Lidocaine Gel #10 L Lat Walker -Combined with other wound No -Current Size (cm) - Length 1.7 -Current Size (cm) - Width 1.2 -Current Size (cm) - Depth 0.3 -Total Square Cm 2.04 -Date of Last Picture (Recall this 06/23/24 field) -Photo Taken Yes -Tunneling No -Undermining/Tunneling No -Circular Undermining No -Exudate Amt None Present -Wound Margin Distinct, Outline Attached -Granulation Amt None Present (0 %) -Slough/Fibrin Yes -Necrosis Amt Large (67-100%) -Necrotic Tissue Type Eschar -Texture (Cherelle-wound Skin Appearance) Assessed, Scarring -Moisture (Cherelle-wound Skin Appearance) Assessed -Color (Cherelle-wound Skin Appearance) Assessed, Erythema -Temperature (Cherelle-wound Skin No Abnormality Appearance) (Pt Warm) -Tenderness on Palpation (Cherelle-wound Yes Skin Appearance) -Ulcer Cleansing Soap and Water -Foul Odor after Cleansing No -Anesthetic Used 5% Lidocaine Gel #9 R Sup Thigh -Combined with other wound No -Current Size (cm) - Length 0.3 -Current Size (cm) - Width 0.3 -Current Size (cm) - Depth 0.1 -Total Square Cm 0.09 -Date of Last Picture (Recall this 06/23/24 field) -Photo Taken Yes -Tunneling No -Undermining/Tunneling No -Circular Undermining No -Exudate Amt None Present -Wound Margin Distinct, Outline Attached -Granulation Amt None Present (0 %) -Slough/Fibrin Yes -Necrosis Amt Large (67-100%) -Necrotic Tissue Type Eschar -Texture (Cherelle-wound Skin Appearance) Assessed, Scarring -Moisture (Cherelle-wound Skin Appearance) Assessed -Color (Cherelle-wound Skin Appearance) Assessed, Erythema -Temperature (Cherelle-wound Skin No Abnormality Appearance) (Pt Warm) -Tenderness on Palpation (Cherelle-wound Yes Skin Appearance) -Ulcer Cleansing Soap and Water -Foul Odor after Cleansing No -Anesthetic Used 5% Lidocaine Gel #8 R Thigh -Combined with other wound No -Current Size (cm) - Length 0.5 -Current Size (cm) - Width 0.5 -Current Size (cm) - Depth 0.2 -Total Square Cm 0.25 -Date of Last Picture (Recall this 06/23/24 field) -Photo Taken Yes -Tunneling No -Undermining/Tunneling No -Circular Undermining No -Exudate Amt None Present -Wound Margin Distinct, Outline Attached -Granulation Amt None Present (0 %) -Slough/Fibrin Yes -Necrosis Amt Large (67-100%) -Necrotic Tissue Type Eschar -Texture (Cherelle-wound Skin Appearance) Assessed, Scarring -Moisture (Cherelle-wound Skin Appearance) Assessed -Color (Cherelle-wound Skin Appearance) Assessed, Erythema -Temperature (Cherelle-wound Skin No Abnormality Appearance) (Pt Warm) -Tenderness on Palpation (Cherelle-wound Yes Skin Appearance) -Ulcer Cleansing Soap and Water -Foul Odor after Cleansing No -Anesthetic Used 5% Lidocaine Gel #7 R Lower Lat Thigh -Combined with other wound No -Current Size (cm) - Length 1.4 -Current Size (cm) - Width 0.6 -Current Size (cm) - Depth 0.2 -Total Square Cm 0.84 -Date of Last Picture (Recall this 06/23/24 field) -Photo Taken Yes -Epithelialization None Present -Tunneling No -Undermining/Tunneling No -Circular Undermining No -Exudate Amt Small -Exudate Type Serosanguineous -Wound Margin Distinct, Outline Attached -Granulation Amt Small (1-33%) -Granulation Quality Red -Slough/Fibrin Yes -Necrosis Amt Large (67-100%) -Necrotic Tissue Type Eschar -Texture (Cherelle-wound Skin Appearance) Assessed, Scarring -Moisture (Cherelle-wound Skin Appearance) Assessed -Color (Cherelle-wound Skin Appearance) Assessed, Erythema -Temperature (Cherelle-wound Skin No Abnormality Appearance) (Pt Warm) -Tenderness on Palpation (Cherelle-wound Yes Skin Appearance) -Ulcer Cleansing Soap and Water -Foul Odor after Cleansing No -Anesthetic Used 5% Lidocaine Gel #6 R Lat Knee -Combined with other wound No -Current Size (cm) - Length 0.1 -Current Size (cm) - Width 0.1 -Current Size (cm) - Depth 0.1 -Total Square Cm 0.01 -Date of Last Picture (Recall this 06/23/24 field) -Photo Taken Yes -Tunneling No -Undermining/Tunneling No -Circular Undermining No -Exudate Amt None Present -Wound Margin Distinct, Outline Attached -Granulation Amt None Present (0 %) -Slough/Fibrin Yes -Necrosis Amt Large (67-100%) -Necrotic Tissue Type Eschar -Texture (Cherelle-wound Skin Appearance) Assessed, Scarring -Moisture (Cherelle-wound Skin Appearance) Assessed -Color (Cherelle-wound Skin Appearance) Assessed, Erythema -Temperature (Cherelle-wound Skin No Abnormality Appearance) (Pt Warm) -Tenderness on Palpation (Cherelle-wound Yes Skin Appearance) -Ulcer Cleansing Soap and Water -Foul Odor after Cleansing No -Anesthetic Used 5% Lidocaine Gel #5 R Med Knee -Combined with other wound No -Current Size (cm) - Length 0.1 -Current Size (cm) - Width 0.1 -Current Size (cm) - Depth 0.1 -Total Square Cm 0.01 -Date of Last Picture (Recall this 06/23/24 field) -Photo Taken Yes -Tunneling No -Undermining/Tunneling No -Circular Undermining No -Exudate Amt Small -Exudate Type Serosanguineous -Wound Margin Distinct, Outline Attached -Granulation Amt Large (67-100%) -Granulation Quality Red -Slough/Fibrin Yes -Necrosis Amt Small (1-33%) -Necrotic Tissue Type Adherent Slough -Texture (Cherelle-wound Skin Appearance) Assessed, Scarring -Moisture (Cherelle-wound Skin Appearance) Assessed -Color (Cherelle-wound Skin Appearance) Assessed -Temperature (Cherelle-wound Skin No Abnormality Appearance) (Pt Warm) -Tenderness on Palpation (Cherelle-wound No Skin Appearance) -Ulcer Cleansing Soap and Water -Foul Odor after Cleansing No -Anesthetic Used 5% Lidocaine Gel #4R Sup Walker -Combined with other wound No -Current Size (cm) - Length 0.2 -Current Size (cm) - Width 0.2 -Current Size (cm) - Depth 0.2 -Total Square Cm 0.04 -Date of Last Picture (Recall this 06/23/24 field) -Photo Taken Yes -Tunneling No -Undermining/Tunneling No -Circular Undermining No -Exudate Amt None Present -Wound Margin Distinct, Outline Attached -Granulation Amt None Present (0 %) -Slough/Fibrin Yes -Necrosis Amt Large (67-100%) -Necrotic Tissue Type Eschar -Texture (Cherelle-wound Skin Appearance) Assessed -Moisture (Cherelle-wound Skin Appearance) Assessed -Color (Cherelle-wound Skin Appearance) Assessed, Erythema -Temperature (Cherelle-wound Skin No Abnormality Appearance) (Pt Warm) -Tenderness on Palpation (Cherelle-wound Yes Skin Appearance) -Ulcer Cleansing S (more content not included)...[facility] 06-23-2024 Evaluation note* Diagnosis Onset Date Resolution Status Admit Date History of D&C acute June 23, 2024 10:08am History of tonsillectomy acute June 23, 2024 10:08am Skin necrosis acute June 23, 2024 10:08am Tobacco abuse counseling acute June 23, 2024 10:08am ADD (attention deficit disorder) chr onic June 23, 2024 10:08am Anxiety chronic June 23 10:08am Asthma chronic June 23 10:08am Depression chronic June 23 10:08am Endometriosis chronic June 23, 2024 10:08am IBS (irritable bowel syndrome) chron ic June 23, 2024 10:08am Nicotine dependence chronic June 23, 2024 10:08am 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 June 23, 2024 10:08am Non-pressure chronic ulcer o f right lower leg with fat layer exposed chronic June 23, 2024 10:08am Seizures chronic June 23 10:08am [facility] Work Phone: [phone] Plan of care note* Plan of Care - Jason Hoskins, RN - 03/27/2024 5:25 PM EST Problem: Actual or potential alteration in health Goal: Absence of healthcare acquired conditions 03/27/20241724 by Jason Hoskins, RN Outcome: Completed 03/27/2024952 by Jason Hoskins, RN Outcome: Partially Met Goal: Knowledge of Interdisciplinary Plan of Care 03/27/20241724 by Jason Hoskins, RN Outcome: Completed 03/27/2024952 by Jason Hoskins, RN Outcome: Partially Met Goal: Knowledge of Enviroment 03/27/20241724 by Jason Hoskins, RN Outcome: Completed 03/27/2024952 by Jason Hoskins, RN Outcome: Partially Met Problem: Pressure Injury, Risk of Goal: Absence of pressure injury 03/27/20241724 by Jason Hoskins, RN Outcome: Completed 03/27/2024952 by Jason Hoskins, RN Outcome: Partially Met Problem: Falls, Risk of Goal: Absence of falls 03/27/20241724 by Jason Hoskins, RN Outcome: Completed 03/27/2024952 by Jason Hoskins, RN Outcome: Partially Met Goal: Absence of physical injury 03/27/20241724 by Jason Hoskins, RN Outcome: Completed 03/27/2024952 by Jason Hoskins, RN Outcome: Partially Met Problem: Skin Integrity - Impaired Goal: Wound healing 03/27/20241724 by Jason Hoskins, RN Outcome: Completed 03/27/2024952 by Jason Hoskins, RN Outcome: Partially Met Goal: Absence of new skin breakdown 03/27/20241724 by Jason Hoskins, RN Outcome: Completed 03/27/2024952 by Jason Hoskins, RN Outcome: Partially Met Goal: Knowledge of skin protection measures 03/27/20241724 by Jason Hoskins, RN Outcome: Completed 03/27/2024952 by Jason Hoskins, RN Outcome: Partially Met Problem: Pain Goal: Reduced pain sensation 03/27/20241724 by Jason Hoskins, RN Outcome: Completed 03/27/2024952 by Jason Hoskins, RN Outcome: Partially Met Goal: Control of acute pain to acceptable level 03/27/20241724 by Jason Hoskins, RN Outcome: Completed 03/27/2024952 by Jason Hoskins, RN Outcome: Partially Met Goal: Able to cope with pain 03/27/20241724 by Jason Hoskins, RN Outcome: Completed 03/27/2024952 by Jason Hoskins, RN Outcome: Partially Met Goal: Able to achieve maximum level of physical functioning 03/27/20241724 by Jason Hoskins RN Outcome: Completed 03/27/2024952 by Jason Hoskins RN Outcome: Partially Met Goal: Able to achieve maximum level of psychosocial functioning 03/27/20241724 by Jason Hoskins RN Outcome: Completed 03/27/2024952 by Jason Hoskins RN Outcome: Partially Met [id number] Miscellaneous Notes* Plan of Care - Jason Hoskins RN - 03/27/2024 5:25 PM EST Problem: Actual or potential alteration in health Goal: Absence of healthcare acquired conditions 03/27/20241724 by Jason Hoskins RN Outcome: Completed 03/27/2024952 by Jason Hoskins RN Outcome: Partially Met Goal: Knowledge of Interdisciplinary Plan of Care 03/27/20241724 by Jason Hoskins RN Outcome: Completed 03/27/2024952 by Jason Hoskins RN Outcome: Partially Met Goal: Knowledge of Enviroment 03/27/20241724 by Jason Hoskins, DILLON Outcome: Completed 03/27/2024952 by Jason Hoskins RN Outcome: Partially Met Problem: Pressure Injury, Risk of Goal: Absence of pressure injury 03/27/20241724 by Jason Hoskins RN Outcome: Completed 03/27/2024952 by Jason Hoskins, RN Outcome: Partially Met Problem: Falls, Risk of Goal: Absence of falls 03/27/20241724 by Jason Hoskins, RN Outcome: Completed 03/27/2024952 by Jason Hoskins RN Outcome: Partially Met Goal: Absence of physical injury 03/27/20241724 by Jason Hoskins, RN Outcome: Completed 03/27/2024952 by Jason Hoskins, RN Outcome: Partially Met Problem: Skin Integrity - Impaired Goal: Wound healing 03/27/2024 172 by Jason Hoskins RN Outcome: Completed 03/27/2024952 by Jason Hoskins, RN Outcome: Partially Met Goal: Absence of new skin breakdown 03/27/20241724 by Jason Hoskins, DILLON Outcome: Completed 03/27/2024952 by Jason Hoskins RN Outcome: Partially Met Goal: Knowledge of skin protection measures 03/27/20241724 by Jason Hoskins, DILLON Outcome: Completed 03/27/2024952 by Jason Hoskins RN Outcome: Partially Met Problem: Pain Goal: Reduced pain sensation 03/27/20241724 by Jason Hoskins, DILLON Outcome: Completed 03/27/2024952 by Jason Hoskins RN Outcome: Partially Met Goal: Control of acute pain to acceptable level 03/27/20241724 by Jason Hoskins, DILLON Outcome: Completed 03/27/2024952 by Jason Hoskins RN Outcome: Partially Met Goal: Able to cope with pain 03/27/20241724 by Jason Hoskins RN Outcome: Completed 03/27/2024952 by Jason Hoskins RN Outcome: Partially Met Goal: Able to achieve maximum level of physical functioning 03/27/20241724 by Jason Hoskins, DILLON Outcome: Completed 03/27/2024952 by Jason Hoskins RN Outcome: Partially Met Goal: Able to achieve maximum level of psychosocial functioning 03/27/20241724 by Jason Hoskins, DILLON Outcome: Completed 03/27/2024952 by Jason Hoskins RN Outcome: Partially Met * Plan of Care - Jason Hoskins RN - 03/27/2024 9:53 AM EST Problem: Actual or potential alteration in health Goal: Absence of healthcare acquired conditions Outcome: Partially Met Goal: Knowledge of Interdisciplinary Plan of Care Outcome: Partially Met Goal: Knowledge of Enviroment Outcome: Partially Met Problem: Pressure Injury, Risk of Goal: Absence of pressure injury Outcome: Partially Met Problem: Falls, Risk of Goal: Absence of falls Outcome: Partially Met Goal: Absence of physical injury Outcome: Partially Met Problem: Skin Integrity - Impaired Goal: Wound healing Outcome: Partially Met Goal: Absence of new skin breakdown Outcome: Partially Met Goal: Knowledge of skin protection measures Outcome: Partially Met Problem: Pain Goal: Reduced pain sensation Outcome: Partially Met Goal: Control of acute pain to acceptable level Outcome: Partially Met Goal: Able to cope with pain Outcome: Partially Met Goal: Able to achieve maximum level of physical functioning Outcome: Partially Met Goal: Able to achieve maximum level of psychosocial functioning Outcome: Partially Met * Plan of Care - Angelica Hill RN - 03/26/2024 11:36 PM EST Problem: Actual or potential alteration in health Goal: Absence of healthcare acquired conditions Outcome: Partially Met Goal: Knowledge of Interdisciplinary Plan of Care Outcome: Partially Met Goal: Knowledge of Enviroment Outcome: Partially Met Problem: Pressure Injury, Risk of Goal: Absence of pressure injury Outcome: Partially Met Problem: Falls, Risk of Goal: Absence of falls Outcome: Partially Met Goal: Absence of physical injury Outcome: Partially Met Problem: Skin Integrity - Impaired Goal: Wound healing Outcome: Partially Met Goal: Absence of new skin breakdown Outcome: Partially Met Goal: Knowledge of skin protection measures Outcome: Partially Met Problem: Pain Goal: Reduced pain sensation Outcome: Partially Met Goal: Control of acute pain to acceptable level Outcome: Partially Met Goal: Able to cope with pain Outcome: Partially Met Goal: Able to achieve maximum level of physical functioning Outcome: Partially Met Goal: Able to achieve maximum level of psychosocial functioning Outcome: Partially Met * Utilization Review - Abbie Babin RN - 03/26/2024 1:25 PM EST [facility] Utilization Review Notes HISTORY OF PRESENT ILLNESS: Lisa Chaudhry is a 43 y.o. female with past medical history of opioid abuse, gastroenteritis, asthma, hepatitis, endometriosis who presented to the emergency department from drug rehab facility for altered mental status. On arrival patient was reportedly somnolent, was arousable to sternal rub and was given a dose of Narcan and became more arousable. Workup in the emergency department revealed slightly elevated white blood cell count with stable H&H, chemistry panel was essentially unremarkable glucose 145 troponin negative alcohol negative urine drug screen unremarkable chest x-ray and CT head were unremarkable as well EKG sinus rhythm. After the Narcan was given patient became slightly more arousable but since then has become sleepy again. She did have episode of nausea and vomiting after the Narcan and was given antiemetic which has helped resolve the vomiting. Request was made by the attending physician to admit the patient for observation overnight as needed Narcan. Patient seen evaluated bedside in the emergency department. Patient is alert talkative easily arousable to verbal stimuli. Patient denies any recent drug use, reportedly she told the ER that her lastdose of heroin was 3 days ago but she has a negative toxicology screen here. Patient states that she took no additional medications, she was being given Suboxone at the treatment facility, denies anyrecent alcohol use. No suicidal or homicidal ideation. Patient denies any headache, no unilateral extremity weakness or pain. Denies any chest pain, no abdominal pain, no shortness of breath, denies any diarrhea no fever or chills. I discussed all results with the patient and need to admit for obser vation as needed Narcan as needed for suspected opiate use. Patient in agreement with plan of care. Patient request full code CODE STATUS VITAL SIGNS: Date/Time Temp Pulse Resp BP SpO2 O2 Device 03/26/24 0913 98 (36.7) 105 Abnormal 18 142/94 Abnormal 97 None (Room air) 03/26/24 0410 -- 113 Abnormal -- 164/103 Abnormal -- -- 03/26/24 0326 98.2 (36.8) 116 Abnormal 20 Abnormal 150/102 Abnormal 97 None (Room air) 03/26/24 0048 -- 100 Abnormal -- 160/108 Abnormal -- -- 03/25/24 2357 99.1 (37.3) 93 18 169/112 Abnormal 98 None (Room air) 03/25/24 2142 -- 92 -- 154/92 Abnormal -- -- 03/25/24 2120 -- 90 -- 161/98 Abnormal -- -- 03/25/24 1936 99.2 (37.3) 100 Abnormal 18 152/100 Abnormal 98 None (Room air) 03/25/24 1333 98.5 (36.9) 98 18 163/98 Abnormal 99 None (Room air) 03/25/24 1204 98.4 (36.9) 90 18 158/99 Abnormal 98 None (Room air) 03/25/24 1004 98.4 (36.9) 90 22 Abnormal 158/99 Abnormal 98 None (Room air) 03/25/24 0813 98.4 (36.9) 91 -- 163/112 Abnormal 98 None (Room air) 03/25/24 0806 -- -- -- 168/112 Abnormal -- -- 03/25/24 0756 -- -- -- 172/107 Abnormal -- -- 03/25/24 0754 -- 98 26 Abnormal 172/107 Abnormal 98 None (Room air) 03/24/242012 98.7 (37.1) 94 28 Abnormal 151/84 Abnormal 100 None (Room air) 03/24/24 1930 -- 85 32 Abnormal 150/98 Abnormal -- -- 03/24/24 1900 -- 94 32 Abnormal 153/98 Abnormal -- -- 03/24/24 1830 -- 62 27 Abnormal 177/96 Abnormal -- -- 03/24/24 1800 -- 65 16 173/88 Abnormal 100 -- 03/24/24 1745 -- 65 11 Abnormal 168/91 Abnormal 100 -- 03/24/24 1730 -- 72 29 Abnormal 158/88 Abnormal 100 -- 03/24/24 1652 -- 57 Abnormal 27 Abnormal 174/98 Abnormal 100 -- 03/24/24 1600 -- 57 Abnormal 21 Abnormal 176/102 Abnormal 100 -- 03/24/24 1530 -- 61 26 Abnormal 189/89 Abnormal 98 -- 03/24/24 1515 -- 59 Abnormal 22 Abnormal 171/107 Abnormal 99 -- 03/24/24 1511 98.1 (36.7) 55 Abnormal -- 156/88 Abnormal 100 None (Room air) EKG 03/24/24: Narrative Sinus bradycardia with sinus arrhythmia Otherwise normal ECG When compared with ECG of 16-JUL-2007 19:15, Minimal criteria for Anteroseptal infarct are no longer Present Nonspecific T wave abnormality now evident in Inferior leads WEIGHT: 66.3 kg LABS: (Abnormal / Relevant): Latest Reference Range & Units 03/24/24 15:23 03/24/24 17:40 03/25/24 07:11 03/25/24 07:12 03/25/24 15:31 03/26/24 06:11 pH, Venous 7.31 - 7.41 7.41 pCO2, Brant 41.0 - 51.0 mm Hg 34.4 (L) pO2, Brant 25 - 40 mm Hg 54 (H) O2 Sat, Brant 40.0 - 70.0 % 87.0 (H) Sodium 136 - 145 mmol/L 138 137 138 135 (L) Potassium 3.5 - 5.1 mmol/L 3.5 3.2 (L) 4.0 3.6 Chloride 98 - 107 mmol/L 105 106 107 105 Bicarbonate 22 - 31 mmol/L 20 (L) 18 (L) 20 (L) 19 (L) Anion Gap 10 - 20 mmol/L 17 16 15 15 Glucose 70 - 126 mg/dL 145 (H) 123 122 112 BUN 7 - 22 mg/dL 13 12 13 15 Creatinine 0.40 - 1.10 mg/dL 0.68 0.56 0.42 0.34 (L) Total Protein 6.4 - 8.3 g/dL 9.0 (H) 7.6 BNP 15 - 100 pg/mL 123 (H) WBC 4.80 - 10.80 K/mcL 12.40 (H) 17.00 (H) 12.70 (H) RBCs 4.00 - 5.20 M/mcL 5.56 (H) 5.45 (H) 5.33 (H) Hemoglobin 12.0 - 16.0 g/dL 16.5 (H) 16.1 (H) 16.0 Hematocrit 36.0 - 46.0 % 50.2 (H) 49.9 (H) 48.4 (H) Latest Reference Range & Units 03/24/24 16:47 Color, Urine Colorless, Yellow Yellow Clarity, Urine Clear Cloudy ! pH, Urine 5.0 - 7.0 8.0 (H) Ketones, Urine Negative mg/dL >=80 ! Blood, Urine Negative Small ! WBCs, Urine 0 - 5 /hpf 23 (H) Bacteria, Urine None Seen /hpf Many ! Mucus, Urine None Seen, Rare /lpf Many ! URINE AEROBIC CULTURE 10,000-49,000 CFU/mL Enteric Gram Negative Bacilli IMAGING: (Abnormal / Relevant): XR Chest 03/24/24 IMPRESSION: Radiographically, there is no cardiopulmonary disease CT Head 03/24/24: IMPRESSION: No acute large vessel infarct, acute intracranial hemorrhage, or intracranial mass lesion. CT Chest Thorax 03/26/24: IMPRESSION: 1. Exam is limited by respiratory motion. 2. No acute findings in the chest. 3. 1.4 cm incidental right thyroid nodule. No follow-up imaging is recommended. CT Abd Pelvis 03/26/24: IMPRESSION: 1. Motion limited exam. 2. No acute intra-abdominal or intrapelvic process. 3. Large amount of stool in the colon. Correlate for constipation. 4. 1.1 x 1.1 cm cystic lesion in the right neural foramen of T11-T12 may represent a perineural cyst. Degenerative changes of the lumbar spine. Further evaluation with MRI may be considered if clinically indicated. ED TX: IVF bolus 0.9NS 1000ml, Zopfran 4mg IV (recv'd x2 doses), Narcan 2mg subQ, Apresoline 10mg IV, Reglan 10mg IV, Pepcid 20mg IV, Rocephin 1000mg IV DX / ASSESSMENT / PLAN: Metabolic encephalopathy -Admit to observation status under hospitalist care -Telemetry monitoring -CT head unremarkable -Ammonia level normal -Add TSH and free T4 -VBG stable -Fall precautions 2. Urinary tract infection -Rocephin daily -Urine culture pending -Slight leukocytosis -Lactic acid normal 3. Dehydration -IV fluid hydration 4. Opiate drug abuse -Talk screen negative -Monitor for withdrawal symptoms 5. DVT prophylaxis -Scheduled heparin 6. Elevated blood glucose -Add hemoglobin A1c 7. Hypertensive urgency -Hydralazine as needed 8. Nausea and vomiting -Zofran as needed -N.p.o. Patient was seen and evaluated at bedside in the emergency department. Patient is currently hemodynamically stable, alert talkative arousable to verbal stimuli denies any drug use or alcohol use today. Denies any other significant past medical history, states she does not take any medications at home. No suicidal or homicidal ideations. I discussed all results with the patient in agreement with plan of care for hospital admission. I will add TSH and free T4, continue IV fluid hydration, as she had 80 ketones in her urine likely dehydrated. As needed Narcan as needed. Does not appear to be septic. Urine culture pending. Greater than 90 minutes of time spent reviewing new and prior records, performing patient interviewand physical exam, and ordering of further workup. IV MEDS: IVF 0.9NS w/20mEq KCl @ 125ml/hr continuous, Potassium phosphate 30mmol in D5W 5% 250ml IV x1, Rocephin 2000mg IV q24hr, Protonix 40mg IV 2 times daily, Zofran 4mg IV q6hr prn (recv'd x5 so far), Apresoline 5mg IV q4hr prn SBP >170 DISPO: Plan for discharge to rehab facility. Date TBD * Plan of Care - Nancy Sal RN - 03/26/2024 1:22 AM EST Problem: Actual or potential alteration in health Goal: Absence of healthcare acquired conditions Outcome: Not Met Goal: Knowledge of Interdisciplinary Plan of Care Outcome: Not Met Goal: Knowledge of Enviroment Outcome: Not Met Problem: Pressure Injury, Risk of Goal: Absence of pressure injury Outcome: Not Met Problem: Falls, Risk of Goal: Absence of falls Outcome: Not Met Goal: Absence of physical injury Outcome: Not Met Problem: Skin Integrity - Impaired Goal: Wound healing Outcome: Not Met Goal: Absence of new skin breakdown Outcome: Not Met Goal: Knowledge of skin protection measures Outcome: Not Met Problem: Pain Goal: Reduced pain sensation Outcome: Not Met Goal: Control of acute pain to acceptable level Outcome: Not Met Goal: Able to cope with pain Outcome: Not Met Goal: Able to achieve maximum level of physical functioning Outcome: Not Met Goal: Able to achieve maximum level of psychosocial functioning Outcome: Not Met * Plan of Care - Tino Blakely RN - 03/25/2024 2:38 AM EST Problem: Actual or potential alteration in health Goal: Absence of healthcare acquired conditions Outcome: Not Met Goal: Knowledge of Interdisciplinary Plan of Care Outcome: Not Met Goal: Knowledge of Enviroment Outcome: Not Met Problem: Pressure Injury, Risk of Goal: Absence of pressure injury Outcome: Not Met Problem: Falls, Risk of Goal: Absence of falls Outcome: Not Met Goal: Absence of physical injury Outcome: Not Met Problem: Skin Integrity - Impaired Goal: Wound healing Outcome: Not Met Goal: Absence of new skin breakdown Outcome: Not Met Goal: Knowledge of skin protection measures Outcome: Not Met * ED Attestation Note - Luis Fernando Lopez MD - 03/24/2024 3:44 PM EST ED Attestation: I did not see this patient. However, I was personally available for consult in the ED for this patient, if the Advanced Practice Provider (ROCCO) needed any assistance. The ROCCO evaluated the patient independently for a complaint of Withdrawal and Altered Mental Status, and completed their own examination, documentation, and discharge. documented in this [id number] History of Present illness Narrative* Jason Hoskins RN - 03/27/2024 5:00 PM EST Patient discharged to [facility]. * Jason Hoskins RN - 03/27/2024 3:30 PM EST [facility] contacted again regarding patient's ride. RN updated [facility] that no one called the hospital back about a ride. [facility] asked for hospitals number and said someone would be calling shortly for ride information. * Rita Casey LISW-S - 03/27/2024 2:56 PM EST Care Management Progress Note Date: 03/27/2024 Time: 2:56 PM Patient Name: Lisa Chaudhry Date of : 1980 Discharge Plan: D/C Disposition: Rehab Facility Final D/C Agency/Destination: ([facility]) Discharging Transportation Plan: Discharge Plan Status: VCM faxed DOD bundle to OR per handoff request. Assessment and Background Information: * Ema Caldwell MD - 03/27/2024 2:[address] Abd/Pelvis showed a large stool burden. Laxatives given with good results . No more abdominal pain. Home today. * Jason Hoskins RN - 03/27/2024 2:30 PM EST OR notified of pending discharge today. [facility] stated the call center will be calling back the hospital to set up transportation as the patient was discharged from their facility. * Clarence Wynn MD - 03/26/2024 3:29 PM EST HOSPITALIST PROGRESS NOTES Lisa Chaudhry is a 43 y.o. female Date: 03/26/2024 Chief Complaint: Chief Complaint Patient presents with Withdrawal Altered Mental Status Patient Active Problem List Diagnosis Metabolic encephalopathy Hypertensive urgency Urinary tract infection without hematuria Dehydration Elevated random blood glucose level Nausea and vomiting Code Status:Full Code Assessment: Acute toxic metabolic encephalopathy, resolving & most likely due to opiate toxicity POA, s/p subcut narcan dose at the ED Uncontrolled hypertension, with improving hypertensive crisis POA provoked by opioid withdrawal following opioid reversal with Narcan Intractable nausea and vomiting, also likely due to opioid withdrawal, ? esophagogastritis vs constitutional symptoms secondary to acute infection(differentials including UTI, aspiration pneumonia, IE ) Leukocytosis, resolving, ? acute stress-related vs sepsis Hypokalemia/hypophosphatemia/mild hyponatremia, due to GI electrolyte loss from vomiting Complicated UTI Heroin and fentanyl addiction, with longstanding IVDA, rule out infective endocarditis Seizure disorder, on Keppra Subclinical hyperthyroidism, with decreased serum TSH 0.12 & normal free T4 1.2; repeat TFT in 4 to 6 weeks prudent Plan: Patient remains afebrile overnight, uncontrolled hypertension improving with the addition of PO clonidine MRSA bacteremia as such felt unlikely, IV vancomycin however commenced overnight by the director athletic [employer] In the interim we will continue current empiric broad-spectrum IV antibiotics (ceftriaxone, vancomycin, metronidazole) while awaiting final blood/urine c+s TTE performed today without mention of valvular vegetations per Dr. Bernard CT chest with IV contrast negative for consolidation or pleural effusion General surgery consulted today due to patient's complaint of intractable nausea and vomiting with abdominal pain, ? inpatient EGD Further evaluation of above GI complaints with CT abdomen/pelvis revealed large amount of stool in the colon; bowel regimen of MiraLAX twice daily consequently commenced Continue liquid diet trial as well as IV fluid resuscitation with crystalloid & IV serum electrolyte replenishment Continue IV PPI twice daily, as well as as needed parenteral antiemetic Continue to avoid psychoactive medications ildefonso opioids, with IV Narcan as needed for opiate reversal Continue keppra for seizure disorder Continue telemetry, with immediate ICU transfer if clinical deterioration or hemodynamic instability HPI: 43-year-old female whose past medical history is remarkable for seizure disorder on keppra, as wellas heroin and fentanyl IVDA. She was transferred to this facility's ED 03/24/2024 due to altered mental status, 3 days after checking into a local drug rehab facility where she was receiving scheduledsuboxone. Her vital signs upon ED arrival included BP 156/88, HR 55, temp 36.7 C, O2 sat 100% room air. Pertinent ED labs included venous pH and pCO2 7.41 and 34.4 respectively, test negative, serum ammonia 26, sodium 138, potassium 3.5, BUN 13, creatinine 0.68, glucose 145, serum ethanolnegative, serum lactate 1.9, WBC 12.4, hemoglobin 16.5, platelets 303, test negative, urine drug screen negative, UA showing many bacteria with pyuria 23. Noncontrast head CT was negative for acute findings. Patient was somnolent upon ED arrival for which she received a 2 mg dose of subcutaneous Narcan with transient improvement in her mental status. BP at the ED was as high as 189/89 with HR in the 50s, for which she received a 10 mg IV hydralazine dose. Patient also received at the ED IV ceftriaxone, a liter NS IV bolus, IV Zofran doses followed by IV Reglan and Pepcid due to intractable nausea and vomiting. Due to recurrence of somnolence, with the potential for further Narcan doses, as well as hypertensive crisis and intractable nausea and vomiting following opioid reversal,patient hospitalization for further management was sought. Discussed with nursing and case management team and the specialists involved in this patient's care. Reviewed the EMR and documentation from other care-givers. Subjective: I saw and examined the patient this morning with RN. She was still complaining of nausea and feeling bloated, with crampy abdominal pain at both lower abdominal quadrants. She was reluctant to returnto the drug addiction center today, stating she still felt rather unwell. Physical Exam: Constitutional: Well-nourished, in no overt distress HEENT: Oral mucosa dry, not pale or jaundiced Lungs: Clear Heart: S1-S2 audible regular Abdomen: Soft, nondistended, LLQ tenderness on deep palpation without rebound or guarding, bowel sounds present Psych: Appropriately oriented in all spheres, blunted affect Neuro: Awake, alert, verbally responsive and follows commands, moves all extremities equally, essentially nonfocal Vitals: 03/26/24 0048 03/26/24 0326 03/26/24 0410 03/26/24 0913 BP: (!) 160/108 (!) 150/102 (!) 164/103 (!) 142/94 BP Location: Right arm Right arm Left arm Left arm Patient Position: Lying Lying Lying Lying Pulse: (!) 100 (!) 116 (!) 113 (!) 105 Resp: (!) 20 18 Temp: 98.2 F (36.8 C) 98 F (36.7 C) TempSrc: Temporal Temporal SpO2: 97% 97% Weight: Height: Current Medications: cefTRIAXone (ROCEPHIN) IVPB 2,000 mg Intravenous Q24H cloNIDine HCL 0.1 mg Oral Q6H heparin (porcine) 5,000 Units Subcutaneous Q8H FAUSTO lactulose 20 g Oral TID levETIRAcetam 500 mg Oral BID metroNIDAZOLE 500 mg Intravenous Q8H pantoprazole 40 mg Intravenous BID polyethylene glycol 17 g Oral BID potassium phosphate 30 mmol in dextrose (D5W) 5% 250 mL IVPB 30 mmol Intravenous Once sodium chloride (PF) 5 mL Intravenous Q8H FAUSTO valsartan 160 mg Oral BID sodium chloride 0.9 % with KCl 20 mEq/L 125 mL/hr (03/26/24 0926) Lab Results: Recent Labs 03/24/24 1523 03/25/24 0712 03/26/24 0611 WBC 12.40* 17.00* 12.70* RBC 5.56* 5.45* 5.33* HGB 16.5* 16.1* 16.0 HCT 50.2* 49.9* 48.4* PLT 303 310 288 Recent Labs 03/25/24 0711 03/25/24 1531 03/26/24 0611 NA 137 138 135* K 3.2* 4.0 3.6 BUN 12 13 15 CREATININE 0.56 0.42 0.34* GLUCOSE 123 122 112 EGFR 116 124 130 MG 1.9 -- 2.1 PHOS 2.5 -- 1.9* Recent Labs 03/24/24 1523 03/26/24 0611 AST 24 15 ALT 19 13 ALKPHOS 96 81 ALBUMIN 4.2 3.2* No results for input(s): INR in the last 72 hours. Recent Labs 03/24/24 1523 TROPONINI 4 Recent Labs 03/24/24 1740 FIO2 21 Invalid input(s): PCGLUCOSE Radiology: Echo complete Final Result CT Abdomen Pelvis With IV Contrast Only Final Result IMPRESSION: 1. Motion limited exam. 2. No acute intra-abdominal or intrapelvic process. 3. Large amount of stool in the colon. Correlate for constipation. 4. 1.1 x 1.1 cm cystic lesion in the right neural foramen of T11-T12 may represent a perineural cyst. Degenerative changes of the lumbar spine. Further evaluation with MRI may be considered if clinically indicated. Electronically signed by: Cassy Lazaro MD 03/26/2024 10:[address] Chest Thorax With Contrast Final Result IMPRESSION: 1. Exam is limited by respiratory motion. 2. No acute findings in the chest. 3. 1.4 cm incidental right thyroid nodule. No follow-up imaging is recommended. Reference: J Am Fabiola Radiol. 2015 May;12(2): 14350 Electronically signed by: Cassy Lazaro MD 03/26/2024 10:[address] Head Or Brain Without Contrast Final Result IMPRESSION: No acute large vessel infarct, acute intracranial hemorrhage, or intracranial mass lesion. Electronically signed by: Rubén Yost MD 03/24/2024 06:40 PM EST RP XR Chest 1 View Final Result Radiographically, there is no cardiopulmonary disease. If you have questions or concerns regarding your Radiology (Medical Imaging) report, please reach out to your family provider or the ordering physician. Workstation ID: [id number] Time spent managing this highly complex patient was at least 50 minutes Clarence Wynn MD * Jason Hoskins RN - 03/26/2024 3:08 PM EST This RN gave patient lactulose as order. Patient able to take 3/4 dose of lactulose and vomited themedication. RN attempted to give patient mag citrate as ordered but patient refused. RN attempted to give soap suds enema, patient only able to retain about 200 ml. Patient able to produce small, hard bowel movement. Patient refused to try enema again. * Jason Hoskins RN - 03/26/2024 12:45 PM EST Patient refusing to drink miralax at this time. * Nicki Moyer LSW - 03/26/2024 11:18 AM EST Care Management Progress Note Date: 03/26/2024 Time: 11:18 AM Patient Name: Lisa Chaudhry Date of : 1980 Discharge Plan: [facility]/[phone] at discharge D/C Disposition: Rehab Facility Final D/C Agency/Destination: (OR) Discharging Transportation Plan:OR to case picker pt when discharge ready Discharge Plan Status: SW sent clinical for ADAM to [facility]. Water/Waste[employer] Project Manager would like Day of discharge bundle faxed when an established discharge date is set. Please fax info to [phone] Assessment and Background Information: * Lisa Sarmiento R.Ph. - 03/26/2024 8:24 AM EST Pharmacotherapy Note: Vancomcyin Dosing Consult Lisa Chaudhry is a 43 y.o. female who is being treated with VANCOmycin for sepsis, pneumonia, and UTI. This patient is high risk for MRSA infection, as she is experiencing IV drug abuse withdrawal. Other antimicrobial regimens include ceftriaxone and metronidazole . Pharmacy will continue to follow, monitor serum creatinine levels and urine output daily, order levels and make adjustments as clinically appropriate. I have modified the orders within [facility] to reflect the recommended dosing. Desired Therapeutic AUC range: 400-600 hr*mg/L We will start/continue the following vancomycin dosinmg q12 Per [facility], this should yieldan AuD of 441 mg/L.hr. Day 2 of therapy. A random level was/will be drawn: Lab Results Component Value Date VANCORANDOM 7.8 03/26/2024 Last vancomycin doses administered: DATE/TIME DOSE FREQUENCY 12.5 2144 1500 start Recent labs and renal function: Estimated Creatinine Clearance: 213 mL/min (A) (by C-G formula based on SCr of 0.34 mg/dL (L)). Lab Results Component Value Date WBC 12.70 (H) 03/26/2024 WBC 17.00 (H) 03/25/2024 WBC 12.40 (H) 03/24/2024 CREATININE 0.34 (L) 03/26/2024 CREATININE 0.42 03/25/2024 CREATININE 0.56 03/25/2024 MRSA nares was ordered this am. CARLOS FAIRCHILD, R.Ph. * Clarence Wynn MD - 03/25/2024 4:55 PM EST HOSPITALIST PROGRESS NOTES Lisa Chaudhry is a 43 y.o. female Date: 03/25/2024 Chief Complaint: Chief Complaint Patient presents with Withdrawal Altered Mental Status Patient Active Problem List Diagnosis Metabolic encephalopathy Hypertensive urgency Urinary tract infection without hematuria Dehydration Elevated random blood glucose level Nausea and vomiting Code Status:Full Code Assessment: Acute toxic metabolic encephalopathy, resolving & most likely due to opiate toxicity POA, s/p subcut narcan dose at the ED Uncontrolled hypertension, with hypertensive crisis POA provoked by opioid withdrawal following opioid reversal with Narcan Intractable nausea and vomiting, also likely due to opioid withdrawal, ? esophagogastritis vs constitutional symptoms secondary to acute infection(differentials including UTI, aspiration pneumonia, IE ) Hypokalemia, due to GI electrolyte loss from vomiting Complicated UTI Heroin and fentanyl addiction, with longstanding IVDA, rule out infective endocarditis Leukocytosis, worse, suspicious for sepsis Seizure disorder, on Keppra Plan: Continue to avoid psychoactive medications ildefonso opioids, with IV Narcan as needed for opiate reversal Continue keppra for seizure disorder Continue telemetry Check TTE to exclude valvular vegetations Continue empiric IV ceftriaxone, which should also provide coverage for possible infectious endocarditis, with added IV metronidazole (anaerobic coverage ? aspiration pneumonia vs intra-abdominal infection) & add IV vancomycin if leukocytosis worsens, while awaiting final blood/urine c+s Parenteral antihypertensive as needed for hypertensive emergency, otherwise commence ARB for BP control and cautiously optimize as needed Continue aggressive IV fluid resuscitation with IV serum electrolyte replenishment Parenteral antiemetic as needed Continue IV PPI twice daily Clear liquid diet trial and gradually advance as tolerated Otherwise, CT abd/pelvis with IV contrast & General Surgery consult in a.m. regarding inpatientEGD if vomiting persists Immediate ICU transfer if clinical deterioration or hemodynamic instability HPI: 43-year-old female whose past medical history is remarkable for seizure disorder on keppra, as wellas heroin and fentanyl IVDA. She was transferred to this facility's ED 03/24/2024 due to altered mental status, 3 days after checking into a local drug rehab facility where she was receiving scheduledsuboxone. Her vital signs upon ED arrival included BP 156/88, HR 55, temp 36.7 C, O2 sat 100% room air. Pertinent ED labs included venous pH and pCO2 7.41 and 34.4 respectively, test negative, serum ammonia 26, sodium 138, potassium 3.5, BUN 13, creatinine 0.68, glucose 145, serum ethanolnegative, serum lactate 1.9, WBC 12.4, hemoglobin 16.5, platelets 303, test negative, urine drug screen negative, UA showing many bacteria with pyuria 23. Noncontrast head CT was negative for acute findings. Patient was somnolent upon ED arrival for which she received a 2 mg dose of subcutaneous Narcan with transient improvement in her mental status. BP at the ED was as high as 189/89 with HR in the 50s, for which she received a 10 mg IV hydralazine dose. Patient also received at the ED IV ceftriaxone, a liter NS IV bolus, IV Zofran doses followed by IV Reglan and Pepcid due to intractable nausea and vomiting. Due to recurrence of somnolence, with the potential for further Narcan doses, as well as hypertensive crisis and intractable nausea and vomiting following opioid reversal,patient hospitalization for further management was sought. Discussed with nursing and case management team and the specialists involved in this patient's care. Reviewed the EMR and documentation from other care-givers. Subjective: I saw and examined the patient this morning. She felt better today blood still complaining of nausea and just had a bout of bilious emesis. She denied abdominal pain, diarrhea, cough, shortness of breath, headache, neck stiffness, acute confusion skin rash; she admitted to malaise and shaking chills. Physical Exam: Constitutional: Well-nourished, in no overt distress HEENT: Oral mucosa dry, not pale or jaundiced Lungs: Clear Heart: S1-S2 audible regular Abdomen: Soft, nontender, nondistended, bowel sounds present Psych: Appropriately oriented in all spheres Neuro: Awake, alert, verbally responsive and follows commands, moves all extremities equally, essentially nonfocal Vitals: 03/25/24 0813 03/25/24 1004 03/25/24 1204 03/25/24 1333 BP: (!) 163/112 (!) 158/99 (!) 158/99 (!) 163/98 BP Location: Left arm Left arm Patient Position: Lying Lying Pulse: 91 90 90 98 Resp: (!) Temp: 98.4 F (36.9 C) 98.4 F (36.9 C) 98.4 F (36.9 C) 98.5 F (36.9 C) TempSrc: Temporal Temporal Temporal Temporal SpO2: 98% 98% 98% 99% Weight: Height: Current Medications: cefTRIAXone (ROCEPHIN) IVPB 1,000 mg Intravenous Q24H heparin (porcine) 5,000 Units Subcutaneous Q8H FAUSTO levETIRAcetam 500 mg Oral BID pantoprazole 40 mg Intravenous BID sodium chloride (PF) 5 mL Intravenous Q8H FAUSTO valsartan 80 mg Oral BID Lab Results: Recent Labs 03/24/24 1523 03/25/24 0712 WBC 12.40* 17.00* RBC 5.56* 5.45* HGB 16.5* 16.1* HCT 50.2* 49.9* PLT 303 310 Recent Labs 03/24/24 1523 03/25/24 0711 03/25/24 1531 NA 138 137 138 K 3.5 3.2* 4.0 BUN 13 12 13 CREATININE 0.68 0.56 0.42 GLUCOSE 145* 123 122 EGFR 110 116 124 MG -- 1.9 -- PHOS -- 2.5 -- Recent Labs 03/24/24 1523 AST 24 ALT 19 ALKPHOS 96 ALBUMIN 4.2 No results for input(s): INR in the last 72 hours. Recent Labs 03/24/24 1523 TROPONINI 4 Recent Labs 03/24/24 1740 FIO2 21 Invalid input(s): PCGLUCOSE Radiology: CT Head Or Brain Without Contrast Final Result IMPRESSION: No acute large vessel infarct, acute intracranial hemorrhage, or intracranial mass lesion. Electronically signed by: Rubén Yost MD 03/24/2024 06:40 PM EST XR Chest 1 View Final Result Radiographically, there is no cardiopulmonary disease. If you have questions or concerns regarding your Radiology (Medical Imaging) report, please reach out to your family provider or the ordering physician. Workstation ID: [id number] Time spent managing this highly complex patient was at least 50 minutes Clarence Wynn MD documented in this [id number] NoteDISCHARGE SUMMARY Patient: Lisa Chaudhry Date of : 1980 Site: [facility] Provider: Brandi Physician Admit Date: 03/24/2024 Discharge Date/Time: 03/27/24 Disposition: Home Clinical Summary Hospital Course: Kindly refer to the history and physical dictated on admission for full details. Also please refer to the general surgery consultation notes for further details. Briefly, Lisa Chaudhry is a 43-year-old female whose past medical history is remarkable for seizure disorder on keppra, as well as heroin and fentanyl IVDA. She was transferred to this facility's ED 03/24/2024 due to altered mental status, 3 days after checking into a local drug rehab facility where she was receiving scheduled suboxone for her opioid addiction. Her vital signs upon ED arrival included BP 156/88, HR 55, temp 36.7 degrees C, O2 sat 100% room air. Pertinent ED labs included venous pH and pCO2 7.41 and 34.4 respectively, test negative, serum ammonia 26, sodium 138, potassium 3.5, BUN 13, creatinine 0.68, glucose 145, serum ethanol negative, serum lactate 1.9, WBC 12.4, hemoglobin 16.5, platelets 303, test negative, urine drug screen negative, UA showing many bacteria with pyuria 23. Noncontrast head CT was negative for acutefindings. Patient was somnolent upon ED arrival for which she received a 2 mg dose of subcutaneous Narcan with transient improvement in her mental status. BP at the ED afterwards was as high as 189/89 with HR in the 50s, for which she received a 10 mg IV hydralazine dose. Patient also received at the ED IV ceftriaxone, a liter NS IV bolus, IV Zofran doses followed by IV Reglan and Pepcid due to intractable nausea and vomiting. Due to recurrence of somnolence, with the potential for further Narcan doses, as well as hypertensive crisis and intractable nausea and vomiting following opioid reversal, patient hospitalization for further management was sought. Patient was admitted to telemetry. Psychoactive medications especially opioids were avoided. She did not require further Narcan doses. She received Keppra as usual for her seizure disorder. ARB was commenced for optimal BP control as well as added clonidine to aid with her opiate withdrawal. She was adequately IV fluid resuscitated with IV serum electrolyte replacement also given. She received IV PPI twice daily for GI protection, as well as parenteral antiemetics. General surgery consult was requested after the patient kept complaining of intractable nausea with vomiting and severe periumbilical abdominal pain. Her WBC count also went up to a peak of 17.0 on 03/25/2024; due to her history of IVDA, she was pancultured with empiric broad-spectrum IV antibiotics given. Further evaluation with CT chest with IV contrast was negative for consolidation or pleural effusion. CT abdomen/pelvis revealed large amount of stool in the colon; a bowel regimen of MiraLAX twice daily was consequently commenced. Patient has remarkably improved following the above interventions. She is currently fully alert and appropriately oriented, with complete resolution of acute encephalopathy. Her BP is now well-controlled with current regimen of clonidine and ARB. Heart valves did not show any valvular vegetations via TTE performed 03/26/[address] Bernard. 03/25/2024 blood cultures currently show no growth. CRP was negative as well as MRSA nasal swab, hence IV vancomycin was discontinued. Urine from 03/24/2024 grew pansensitive E. coli, hence IV ceftriaxone was continued. Patient has been afebrile and hemodynamically stable past 24 hours. She had a large bowel movement overnight & is currently tolerating a full liquid diet with complete resolution of all her GI complaints. Patient is adamantly refusing to return to the drug rehab center, hence she was discharged home this afternoon in stable condition. I again today strongly advised her to quit cigarette smoking as well as to refrain from further illicit drug use especially IV drug abuse. I encouraged her to get set up with a PCP to further manage her chronic conditions especially uncontrolled hypertension and seizure disorder. She will need a repeat TSH and free T4 in 4 to 6 weeks to further evaluate subclinical hyperthyroidism. Discharge Diagnoses: Acute toxic metabolic encephalopathy, resolved & most likely due to opiate toxicity POA, s/p subcut narcan dose at the ED Uncontrolled hypertension, with now resolved hypertensive crisis POA provoked by opioid withdrawal following opioid reversal with Narcan Intractable nausea, vomiting, & abd pain, the result of severe (opioid-induced ) constipation, as well as concomittant opioid withdrawal, ? esophagogastritis Leukocytosis, resolved, sepsis ruled out, more likely acute stress-related Hypokalemia/hypophosphatemia/mild hyponatremia, all r (more content not included)...[facility]12-07-2024 NoteCT Abd/Pelvis showed a large stool burden. Laxatives given with good results . No more abdominal pain. Home today. AUTHENTICATED BY EMA CALDEWLL ON 03/27/2024 14:54:11[facility] Narrative* Clarence Wynn MD - 03/27/2024 2:52 PM EST DISCHARGE SUMMARY Patient: Lisa Chaudhry Date of : 1980 Site: [facility] Family Provider: Brandi Physician Admit Date: 03/24/2024 Discharge Date/Time: 03/27/24 Disposition: Home Clinical Summary Hospital Course: Kindly refer to the history and physical dictated on admission for full details. Also please refer to the general surgery consultation notes for further details. Briefly, Lisa Chaudhry is a 43-year-old female whose past medical history is remarkable for seizure disorder on keppra, as well as heroin and fentanyl IVDA. She was transferred to this facility's ED 03/24/2024 due to altered mental status, 3 days after checking into a local drug rehab facility where she was receiving scheduled suboxone for her opioid addiction. Her vital signs upon ED arrival included BP 156/88, HR 55, temp 36.7 C, O2 sat 100% room air. Pertinent ED labs included venous pH andpCO2 7.41 and 34.4 respectively, test negative, serum ammonia 26, sodium 138, potassium 3.5, BUN 13, creatinine 0.68, glucose 145, serum ethanol negative, serum lactate 1.9, WBC 12.4, hemoglobin 16.5, platelets 303, test negative, urine drug screen negative, UA showing many bacteria with pyuria 23. Noncontrast head CT was negative for acute findings. Patient was somnolent uponED arrival for which she received a 2 mg dose of subcutaneous Narcan with transient improvement in her mental status. BP at the ED afterwards was as high as 189/89 with HR in the 50s, for which she re ceived a 10 mg IV hydralazine dose. Patient also received at the ED IV ceftriaxone, a liter NS IV bolus, IV Zofran doses followed by IV Reglan and Pepcid due to intractable nausea and vomiting. Due to recurrence of somnolence, with the potential for further Narcan doses, as well as hypertensive crisis and intractable nausea and vomiting following opioid reversal, patient hospitalization for further management was sought. Patient was admitted to telemetry. Psychoactive medications especially opioids were avoided. She did not require further Narcan doses. She received Keppra as usual for her seizure disorder. ARB was commenced for optimal BP control as well as added clonidine to aid with her opiate withdrawal. She was adequately IV fluid resuscitated with IV serum electrolyte replacement also given. She received IVPPI twice daily for GI protection, as well as parenteral antiemetics. General surgery consult was requested after the patient kept complaining of intractable nausea with vomiting and severe periumbilical abdominal pain. Her WBC count also went up to a peak of 17.0 on 03/25/2024; due to her history of IVDA, she was pancultured with empiric broad-spectrum IV antibiotics given. Further evaluation with CT chest with IV contrast was negative for consolidation or pleural effusion. CT abdomen/pelvis revealed large amount of stool in the colon; a bowel regimen of MiraLAX twice daily was consequently commenced. Patient has remarkably improved following the above interventions. She is currently fully alert andappropriately oriented, with complete resolution of acute encephalopathy. Her BP is now well-controlled with current regimen of clonidine and ARB. Heart valves did not show any valvular vegetations via TTE performed 03/26/[address] Bernard. 03/25/2024 blood cultures currently show no growth. CRP was negative as well as MRSA nasal swab, hence IV vancomycin was discontinued. Urine from 03/24/2024 grewpansensitive E. coli, hence IV ceftriaxone was continued. Patient has been afebrile and hemodynamically stable past 24 hours. She had a large bowel movement overnight & is currently tolerating a full liquid diet with complete resolution of all her GI complaints. Patient is adamantly refusing to return to the drug rehab center, hence she was discharged home this afternoon in stable condition. I again today strongly advised her to quit cigarette smoking as well as to refrain from further illicit drug use especially IV drug abuse. I encouraged her to get set up with a PCP to further manageher chronic conditions especially uncontrolled hypertension and seizure disorder. She will need a repeat TSH and free T4 in 4 to 6 weeks to further evaluate subclinical hyperthyroidism. Discharge Diagnoses: Acute toxic metabolic encephalopathy, resolved & most likely due to opiate toxicity POA, s/p subcut narcan dose at the ED Uncontrolled hypertension, with now resolved hypertensive crisis POA provoked by opioid withdrawal following opioid reversal with Narcan Intractable nausea, vomiting, & abd pain, the result of severe (opioid-induced ) constipation, as well as concomittant opioid withdrawal, ? esophagogastritis Leukocytosis, resolved, sepsis ruled out, more likely acute stress-related Hypokalemia/hypophosphatemia/mild hyponatremia, all replenished & due to GI electrolyte loss from vomiting Complicated UTI; urine 03/24/2024 grew pansensitive E. coli Heroin and fentanyl addiction, with longstanding IVDA, infective endocarditis ruled out Tobacco abuse Seizure disorder, on Keppra Subclinical hyperthyroidism, with decreased serum TSH 0.12 & normal free T4 1.2; repeat TFT in 4 to 6 weeks prudent Surgeries: None Consults: Procedures Inpatient consult to Care Management Inpatient consult to General Surgery Allergies: Latex and Codeine Discharge Diet: Low Residue Condition: Good Discharge Medications: Discharge Medications New Medications Details cefdinir 300 MG capsule Commonly known as: OMNICEF Take 1 (one) capsule (300 mg total) by mouth 2 (two) times a day for 3 days . Quantity: 6 capsule cloNIDine HCL 0.1 MG tablet Commonly known as: CATAPRES Take 1 (one) tablet (0.1 mg total) by mouth 2 (two) times a day . Quantity: 60 tablet melatonin 10 mg Tab Take 10 mg by mouth nightly as needed (insomnia) . Quantity: 30 tablet nicotine 14 mg/24 hr Commonly known as: NICODERM CQ Start taking on: March 28, 2024 Place 1 (one) patch on the skin daily Start: 03/28/24. Quantity: 28 patch pantoprazole 40 MG tablet Commonly known as: PROTONIX Take 1 (one) tablet (40 mg total) by mouth every morning before breakfast for 14 days . Quantity: 14 tablet polyethylene glycol 17 gram/dose powder Commonly known as: Miralax Take 17 (seventeen) g by mouth daily . Quantity: 510 g telmisartan 40 MG tablet Commonly known as: MICARDIS Take 1 (one) tablet (40 mg total) by mouth daily . Quantity: 30 tablet Medications To Continue Details buprenorphine-nalOXone 8-2 mg Film Commonly known as: SUBOXONE Place 1 (one) each (1 Film total) under the tongue daily . busPIRone 10 MG tablet Commonly known as: BUSPAR Take 1 (one) tablet (10 mg total) by mouth every night at bedtime . escitalopram oxalate 5 MG tablet Commonly known as: LEXAPRO levETIRAcetam 500 MG tablet Commonly known as: KEPPRA Take 1 (one) tablet (500 mg total) by mouth 2 (two) times a day . Physician(s) Family Provider: No, Physician, Phone: None Address: [facility] Follow Up: No follow-up provider specified. Subjective: I saw and examined the patient this afternoon with RN. [facility], and had finished her lunch without any complaints. She was keen to be discharged home this afternoon. Objective: Latest vital signs include BP 143/88, HR 95, temperature 97.9 F, pulse ox 100% room air Constitutional: Well-nourished, in no overt distress HEENT: Oral mucosa moist, not pale or jaundiced Lungs: Clear Heart: S1-S2 audible regular Abdomen: Soft, nondistended, nontender, bowel sounds present Psych: Appropriately oriented in all spheres, blunted affect Neuro: Awake, alert, verbally responsive and follows commands, moves all extremities equally, steady gait, essentially nonfocal Patient instructions, including activity, were given to the patient/family at discharge. Please seethe After Visit Summary in the electronic medical record for details. Time spent on discharge: > 30 minutes Completed by: Clarence Wynn MD on 03/27/24, 2:52 PM documented in this [id number] Hospital Discharge instructions * Discharge Instructions* Clarence Wynn MD - 03/27/2024 2:23 PM EST * Discharge Instr - AVS First Page* Clarence Wynn MD - 03/27/2024 2:24 PM EST Follow-up with PCP within the next 2 to 3 days. Repeat TSH & free T4 in 4-6 weeks. Stop using illicit drugs especially intravenous heroin and fentanyl. Return to inpatient addiction center as soon as possible. * Attachments The following attachments cannot be sent through Care Everywhere. * Constipation ([place]) * UTI (Urinary Tract Infection): Female ([place]) * Heroin Use and Withdrawal: General Info ([place]i) documented in this [id number] Plan of care note* Plan of Care - Jason Hoskins RN - 03/27/2024 9:53 AM EST Problem: Actual or potential alteration in health Goal: Absence of healthcare acquired conditions Outcome: Partially Met Goal: Knowledge of Interdisciplinary Plan of Care Outcome: Partially Met Goal: Knowledge of Enviroment Outcome: Partially Met Problem: Pressure Injury, Risk of Goal: Absence of pressure injury Outcome: Partially Met Problem: Falls, Risk of Goal: Absence of falls Outcome: Partially Met Goal: Absence of physical injury Outcome: Partially Met Problem: Skin Integrity - Impaired Goal: Wound healing Outcome: Partially Met Goal: Absence of new skin breakdown Outcome: Partially Met Goal: Knowledge of skin protection measures Outcome: Partially Met Problem: Pain Goal: Reduced pain sensation Outcome: Partially Met Goal: Control of acute pain to acceptable level Outcome: Partially Met Goal: Able to cope with pain Outcome: Partially Met Goal: Able to achieve maximum level of physical functioning Outcome: Partially Met Goal: Able to achieve maximum level of psychosocial functioning Outcome: Partially Met [id number] Plan of care note* Plan of Care - Angelica Hill RN - 03/26/2024 11:36 PM EST Problem: Actual or potential alteration in health Goal: Absence of healthcare acquired conditions Outcome: Partially Met Goal: Knowledge of Interdisciplinary Plan of Care Outcome: Partially Met Goal: Knowledge of Enviroment Outcome: Partially Met Problem: Pressure Injury, Risk of Goal: Absence of pressure injury Outcome: Partially Met Problem: Falls, Risk of Goal: Absence of falls Outcome: Partially Met Goal: Absence of physical injury Outcome: Partially Met Problem: Skin Integrity - Impaired Goal: Wound healing Outcome: Partially Met Goal: Absence of new skin breakdown Outcome: Partially Met Goal: Knowledge of skin protection measures Outcome: Partially Met Problem: Pain Goal: Reduced pain sensation Outcome: Partially Met Goal: Control of acute pain to acceptable level Outcome: Partially Met Goal: Able to cope with pain Outcome: Partially Met Goal: Able to achieve maximum level of physical functioning Outcome: Partially Met Goal: Able to achieve maximum level of psychosocial functioning Outcome: Partially Met [id number] NoteHOSPITALIST PROGRESS NOTES Lisa Chaudhry is a 43 y.o. female Date: 03/26/2024 Chief Complaint: Chief Complaint Patient presents with Withdrawal Altered Mental Status Patient Active Problem List Diagnosis Metabolic encephalopathy Hypertensive urgency Urinary tract infection without hematuria Dehydration Elevated random blood glucose level Nausea and vomiting Code Status:Full Code Assessment: Acute toxic metabolic encephalopathy, resolving & most likely due to opiate toxicity POA, s/p subcut narcan dose at the ED Uncontrolled hypertension, with improving hypertensive crisis POA provoked by opioid withdrawal following opioid reversal with Narcan Intractable nausea and vomiting, also likely due to opioid withdrawal, ? esophagogastritis vs constitutional symptoms secondary to acute infection(differentials including UTI, aspiration pneumonia, IE ) Leukocytosis, resolving, ? acute stress-related vs sepsis Hypokalemia/hypophosphatemia/mild hyponatremia, due to GI electrolyte loss from vomiting Complicated UTI Heroin and fentanyl addiction, with longstanding IVDA, rule out infective endocarditis Seizure disorder, on Keppra Subclinical hyperthyroidism, with decreased serum TSH 0.12 & normal free T4 1.2; repeat TFT in 4 to 6 weeks prudent Plan: Patient remains afebrile overnight, uncontrolled hypertension improving with the addition of PO clonidine MRSA bacteremia as such felt unlikely, IV vancomycin however commenced overnight by the director athletic [employer] In the interim we will continue current empiric broad-spectrum IV antibiotics (ceftriaxone, vancomycin, metronidazole) while awaiting final blood/urine c+s TTE performed today without mention of valvular vegetations per Dr. Bernard CT chest with IV contrast negative for consolidation or pleural effusion General surgery consulted today due to patient's complaint of intractable nausea and vomiting with abdominal pain, ? inpatient EGD Further evaluation of above GI complaints with CT abdomen/pelvis revealed large amount of stool in the colon; bowel regimen of MiraLAX twice daily consequently commenced Continue liquid diet trial as well as IV fluid resuscitation with crystalloid & IV serum electrolyte replenishment Continue IV PPI twice daily, as well as as needed parenteral antiemetic Continue to avoid psychoactive medications ildefonso opioids, with IV Narcan as needed for opiate reversal Continue keppra for seizure disorder Continue telemetry, with immediate ICU transfer if clinical deterioration or hemodynamic instability HPI: 43-year-old female whose past medical history is remarkable for seizure disorder on keppra, as well as heroin and fentanyl IVDA. She was transferred to this facility's ED 03/24/2024 due to altered mental status, 3 days after checking into a local drug rehab facility where she was receiving scheduled suboxone. Her vital signs upon ED arrival included BP 156/88, HR 55, temp 36.7 degrees C, O2 sat 100% room air. Pertinent ED labs included venous pH and pCO2 7.41 and 34.4 respectively, test negative, serum ammonia 26, sodium 138, potassium 3.5, BUN 13, creatinine 0.68, glucose 145, serum ethanol negative, serum lactate 1.9, WBC 12.4, hemoglobin 16.5, platelets 303, test negative, urine drug screen negative, UA showing many bacteria with pyuria 23. Noncontrast head CT was negative for acute findings. Patient was somnolent upon ED arrival for which she received a 2 mg dose of subcutaneous Narcan with transient improvement in her mental status. BP at the ED was as high as 189/89 with HR in the 50s, for which she received a 10 mg IV hydralazine dose. Patient also received at the ED IV ceftriaxone, a liter NS IV bolus, IV Zofran doses followed by IV Reglan and Pepcid due to intractable nausea and vomiting. Due to recurrence of somnolence, with the potential for further Narcan doses, as well as hypertensive crisis and intractable nausea and vomiting following opioid reversal, patient hospitalization for further management was sought. Discussed with nursing and case management team and the specialists involved in this patient's care. Reviewed the EMR and documentation from other care-givers. Subjective: I saw and examined the patient this morning with RN. She was still complaining of nausea and feeling bloated, with crampy abdominal pain at both lower abdominal quadrants. She was reluctant to return to the drug addiction center today, stating she still felt rather unwell. Physical Exam: Constitutional: Well-nourished, in no overt distress HEENT: Oral mucosa dry, not pale or jaundiced Lungs: Clear Heart: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 reversal with Narcan Intractable nausea and vomiting, also likely due to opioid withdrawal, ? esophagogastritis vs constitutional symptoms secondary to acute infection(differentials including UTI, aspiration pneumonia, IE ) Hypokalemia, due to GI electrolyte loss from vomiting Complicated UTI Heroin and fentanyl addiction, with longstanding IVDA, rule out infective endocarditis Leukocytosis, worse, suspicious for sepsis Seizure disorder, on Keppra Plan: Continue to avoid psychoactive medications ildefonso opioids, with IV Narcan as needed for opiate reversal Continue keppra for seizure disorder Continue telemetry Check TTE to exclude valvular vegetations Continue empiric IV ceftriaxone, which should also provide coverage for possible infectious endocarditis, with added IV metronidazole (anaerobic coverage ? aspiration pneumonia vs intra-abdominal infection) & add IV vancomycin if leukocytosis worsens, while awaiting final blood/urine c+s Parenteral antihypertensive as needed for hypertensive emergency, otherwise commence ARB for BP control and cautiously optimize as needed Continue aggressive IV fluid resuscitation with IV serum electrolyte replenishment Parenteral antiemetic as needed Continue IV PPI twice daily Clear liquid diet trial and gradually advance as tolerated Otherwise, CT abd/pelvis with IV contrast & General Surgery consult in a.m. regarding inpatient EGD if vomiting persists Immediate ICU transfer if clinical deterioration or hemodynamic instability HPI: 43-year-old female whose past medical history is remarkable for seizure disorder on keppra, as well as heroin and fentanyl IVDA. She was transferred to this facility's ED 03/24/2024 due to altered mental status, 3 days after checking into a local drug rehab facility where she was receiving scheduled suboxone. Her vital signs upon ED arrival included BP 156/88, HR 55, temp 36.7 degrees C, O2 sat 100% room air. Pertinent ED labs included venous pH and pCO2 7.41 and 34.4 respectively, test negative, serum ammonia 26, sodium 138, potassium 3.5, BUN 13, creatinine 0.68, glucose 145, serum ethanol negative, serum lactate 1.9, WBC 12.4, hemoglobin 16.5, platelets 303, test negative, urine drug screen negative, UA showing many bacteria with pyuria 23. Noncontrast head CT was negative for acute findings. Patient was somnolent upon ED arrival for which she received a 2 mg dose of subcutaneous Narcan with transient improvement in her mental status. BP at the ED was as high as 189/89 with HR in the 50s, for which she received a 10 mg IV hydralazine dose. Patient also received at the ED IV ceftriaxone, a liter NS IV bolus, IV Zofran doses followed by IV Reglan and Pepcid due to intractable nausea and vomiting. Due to recurrence of somnolence, with the potential for further Narcan doses, as well as hypertensive crisis and intractable nausea and vomiting following opioid reversal, patient hospitalization for further management was sought. Discussed with nursing and case management team and the specialists involved in this patient's care. Reviewed the EMR and documentation from other care-givers. Subjective: I saw and examined the patient this morning. She felt better today blood still complaining of nausea and just had a bout of bilious emesis. She denied abdominal pain, diarrhea, cough, shortness of breath, headache, neck stiffness, acute confusion skin rash; she admitted to malaise and shaking chills. Physical Exam: Constitutional: Well-nourished, in no overt distress HEENT: Oral mucosa dry, not pale or jaundiced Lungs: Clear Heart: S1-S2 audible regular Abdomen: Soft, nontender, nondistended, bowel sounds present Psych: Appropriately oriented in all spheres Neuro: Awake, alert, verbally responsive and follows commands, moves all extremities equally, essentially nonfocal Vitals: 03/25/24 0813 03/25/24 1004 03/25/24 1204 03/25/24 1333 BP: (!) 163/112 (!) 158/99 (!) 158/99 (!) 163/98 BP Location: Left arm Left arm Patient Position: Lying Lying Pulse: 91 90 90 98 Resp: (!) 22 18 18 Temp: 98.4 degrees F (36.9 degrees C) 98.4 degrees F (36.9 degrees C) 98.4 degrees F (36.9 degrees C) 98.5 degrees F (36.9 degrees C) TempSrc: Temporal (more content not included)...[facility] 03-25-2024 Consult note* Alejandrina Roberson, PT - 03/25/2024 10:08 AM EST Physical Therapy PHYSICAL THERAPY SCREEN Patient was screened by Physical Therapy. Order discontinued at this time. Patient refused therapy/OOB activity x2 attempts. [id number] Consult note* Rainer Gleason - 03/25/2024 10:07 AM EST Occupational Therapy OCCUPATIONAL THERAPY SCREEN Patient was screened by Occupational Therapy. Upon review of the chart and discussion with the patient x2, no skilled Occupational Therapy intervention is indicated. Pt refused therapy inquiry x2 stating she did not feel the need for therapy at this time. Pt educated on contacting nurse if therapy needs arise in the future. RN notified of pt's refusal. Order discontinued at this time. Student OT, RAINER GLEASON , assisted with treatment under direct supervision and direction of licensed treating OT. Rainer Gleason, S/OT 03/25/2024 Cosigned by Brandy Alicea OT at 03/25/2024 10:10 AM EST [id number] Consult note* Nicki Moyer LSW - 03/25/2024 8:10 AM EST Care Management Consult Note Date: 03/25/2024 Time: 8:10 AM Patient Name: Lisa Chaudhry Date of : 1980 Reason for Consult: Discharge needs Discharge Plan: to return to [facility] ([facility]) Discharging Transportation Plan: [facility] /[phone] Discharge Plan Status: SW consutled to see pt re: discharge needs. [facility] from [facility]. SW met with pt in room. Pt responded to questions but was head to toe covered in sheet. Discussed discharge plan. Pt not feeling well this a.m. Statesshe is uncertain if she will return to [facility]. SW expressed concern re: pt not going back to [facility] and explained that [facility] was best safety option for pt at this time. 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 2:25 PM [facility] called back and confirmed acceptance of pt when medically stable. They would like clinical faxed to [phone] when pt is discharged for ADAM 2:36 PM Assessment and Background Information: Living Arrangements: Alone Support Systems: None Assistance Needed: none requested Type of Residence: Independent living Prior to Admission Home Care Services: No [id number] Plan of care note* Plan of Care - Tino Blakely RN - 03/25/2024 2:38 AM EST Problem: Actual or potential alteration in health Goal: Absence of healthcare acquired conditions Outcome: Not Met Goal: Knowledge of Interdisciplinary Plan of Care Outcome: Not Met Goal: Knowledge of Enviroment Outcome: Not Met Problem: Pressure Injury, Risk of Goal: Absence of pressure injury Outcome: Not Met Problem: Falls, Risk of Goal: Absence of falls Outcome: Not Met Goal: Absence of physical injury Outcome: Not Met Problem: Skin Integrity - Impaired Goal: Wound healing Outcome: Not Met Goal: Absence of new skin breakdown Outcome: Not Met Goal: Knowledge of skin protection measures Outcome: Not Met [id number] Emergency department Note* Pete Maldonado RN - 03/24/2024 7:58 PM EST Report called to Tino CARRANZA [id number] Emergency department Note* Pete Maldonado RN - 03/24/2024 7:58 PM EST Report called to Tino CARRANZA * Micha Pedersen RN - 03/24/2024 7:40 PM EST Pt will be admitted to room 2004 with Tino CARRANZA assigned. * Antonieta Goodwin RN - 03/24/2024 7:40 PM EST Pt to go to Tino Blakely RN * Jessi Poe RN - 03/24/2024 7:03 PM EST Bed request/admit dispo Micha moncada RN/Semiconductor Manufacturing Technician notified of pending admission. * Pete Maldonado RN - 03/24/2024 6:41 PM EST Patient medicated per MAR. No further needs at this time. * Pete Maldonado RN - 03/24/2024 6:31 PM EST Patient returned from CT, large episode of emesis in hallway. Pt cleaned up, GUNNER'S MATE G aware, see orders. * Pete Maldonado RN - 03/24/2024 5:46 PM EST Patient medicated per MAR. No further needs. * Antonieta Goodwin RN - 03/24/2024 4:46 PM EST Lab unable to collect lactic blood draw. Hiwot WOLFE notified * Pete Maldonado RN - 03/24/2024 4:45 PM EST Patient voided on bedpan, sample collected. * Antonieta Goodwin RN - 03/24/2024 4:37 PM EST Lab remains at bedside for blood draw * Pete Maldonado RN - 03/24/2024 3:55 PM EST X ray at bedside * Pete Maldonado RN - 03/24/2024 3:51 PM EST Phlebotomy at beside * Antonieta Goodwin RN - 03/24/2024 3:34 PM EST Straight cath attempt x2 by DILLON Willoughby. Unsuccessful urine collection. Per Hiwot Hoover NP attempt after bolus of fluid. * Hiwot Hoover CNP - 03/24/2024 3:31 PM ESTAssociated Order(s): EKG 12- lead; Critical Care [facility] MED SURG ATTENDING NOTE: NAME: Lisa Chaudhry CSN: [id number] 43 y.o. PCP: Brandi, Physician History: Chief Complaint: Withdrawal and Altered Mental Status HPI: The history was obtained from the patient. Lisa is a 43 y.o. female who presents with a chief complaint of Withdrawal and Altered Mental Status. Past medical history of drug abuse. 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 Patient was being seen there for opioid abuse. States she last used approximately 3 days ago. Started Suboxone 2 days ago. Patient started having withdrawal symptoms today. She was lethargic and unresponsive upon arrival. Per report from's facility patient had been super sleepy, weak, emotionally labile, and had a bad color . Nursing staff brought patient in per wheelchair patient is unresponsive on cot. Minimally responsive only after several sternal rubs. 2 mg Narcan given due to decreased mental awareness and history of drug abuse. Patient remains lethargic but is responsive to questions asked. Patient did vomit after Narcan dose. Vital signs are stable. She is hypertensive 189/89. Afebrile. Nontachycardic. 98% on room air. [id number] glucose was checked 133. Patient is in no respiratory distress. PMHx: Past Medical History: Diagnosis Date Opiate abuse, continuous (HCC) PMSx: No past surgical history on file. FAM. Hx: No family history on file. SOC. Hx: Social History Socioeconomic History Marital status: Single Substance and Sexual Activity Drug use: Yes Types: Opiates, Heroin Social Drivers of Health Financial Resource Strain: Low Risk (06/17/2023) Received from [facility] Overall Financial Resource Strain (CARDIA) Difficulty of Paying Living Expenses: Not very hard Food Insecurity: Food Insecurity Present (06/17/2023) Received from [facility] Hunger Vital Sign Worried About Running Out of Food in the Last Year: Sometimes true Ran Out of Food in the Last Year: Sometimes true Transportation Needs: No Transportation Needs (06/17/2023) Received from [facility] PRAPARE - Transportation Lack of Transportation (Medical): No Lack of Transportation (Non-Medical): No Housing Stability: Unknown (06/17/2023) Received from [facility] Housing Stability Vital Sign Unable to Pay for Housing in the Last Year: Patient refused Number of Places Lived in the Last Year: 1 Unstable Housing in the Last Year: Patient refused MEDs: Previous Medications Medication Sig escitalopram oxalate (LEXAPRO) 5 MG tablet buprenorphine-nalOXone (SUBOXONE) 8-[address] 1 (one) each (1 Film total) under the tongue daily . busPIRone (BUSPAR) 10 MG tablet Take 1 (one) tablet (10 mg total) by mouth every night at bedtime . levETIRAcetam (KEPPRA) 500 MG tablet Take 1 (one) tablet (500 mg total) by mouth 2 (two) times a day . ALL: Allergies Allergen Reactions Latex Rash Codeine Other (See Comments), Unknown and GI Intolerance Reaction Unknown: Please investigate and enter into EPIC. Other reaction(s): Vomiting Reaction Unknown: Please investigate and enter into EPIC. Reaction Unknown: Please investigate and enter into EPIC. Other reaction(s): Vomiting Reaction Unknown: Please investigate and enter into EPIC. ROS: Review of Systems Unable to perform ROS: Patient unresponsive Constitutional: Negative for chills and fever. HENT: Negative for ear pain and sore throat. Eyes: Negative for discharge and redness. Respiratory: Negative for cough, chest tightness, shortness of breath and wheezing. Cardiovascular: Negative for chest pain, palpitations and leg swelling. Gastrointestinal: Negative for abdominal distention, abdominal pain, diarrhea and vomiting. Genitourinary: Negative for dysuria, flank pain, frequency, hematuria and urgency. Musculoskeletal: Negative for back pain and neck pain. Skin: Negative for pallor and rash. Neurological: Negative for dizziness, light-headedness and headaches. Psychiatric/Behavioral: Negative for agitation and behavioral problems. The patient is not nervous/anxious. Positives and pertinent negatives as per HPI. All other systems were reviewed and are negative. Physical Exam: Patient Vitals for the past 24 hrs: BP Temp Temp src Pulse Resp SpO2 Weight 03/24/242012 -- 98.7 F (37.1 C) Temporal 94 (!) 28 100 % -- 03/24/24 1930 (!) 150/98 -- -- 85 (!) 32 -- -- 03/24/24 1900 (!) 153/98 -- -- 94 (!) 32 -- -- 03/24/24 1830 (!) 177/96 -- -- 62 (!) 27 -- -- 03/24/24 1800 (!) 173/88 -- -- 65 16 100 % -- 03/24/24 1745 (!) 168/91 -- -- 65 (!) 11 100 % -- 03/24/24 1730 (!) 158/88 -- -- 72 (!) 29 100 % -- 03/24/24 1652 (!) 174/98 -- -- (!) 57 (!) 27 100 % -- 03/24/24 1600 (!) 176/102 -- -- (!) 57 (!) 21 100 % -- 03/24/24 1530 (!) 189/89 -- -- 61 (!) 26 98 % -- 03/24/24 1515 (!) 171/107 -- -- (!) 59 (!) 22 99 % -- 03/24/24 1511 (!) 156/88 98.1 F (36.7 C) Temporal (!) 55 -- 100 % 67 kg (147 lb 12.8 oz) Physical Exam Vitals and nursing note reviewed. Constitutional: General: She is not in acute distress. Appearance: Normal appearance. She is well-developed. She is not ill-appearing or toxic-appearing. HENT: Head: Normocephalic. Right Ear: External ear normal. Left Ear: External ear normal. Nose: Nose normal. No congestion. Mouth/Throat: Mouth: Mucous membranes are moist. Pharynx: Oropharynx is clear. Eyes: General: Right eye: No discharge. Left eye: No discharge. Conjunctiva/sclera: Conjunctivae normal. Pupils: Pupils are equal, round, and reactive to light. Comments: Dilated pupils Cardiovascular: Rate and Rhythm: Normal rate and regular rhythm. Pulses: Normal pulses. Heart sounds: Normal heart sounds. No murmur heard. No friction rub. Musculoskeletal: General: No swelling or tenderness. Right lower leg: No edema. Left lower leg: No edema. Pulmonary: Effort: Pulmonary effort is normal. No respiratory distress. Breath sounds: Normal breath sounds. No wheezing or rhonchi. Abdominal: General: Bowel sounds are normal. There is no distension. Tenderness: There is no abdominal tenderness. There is no guarding. Skin: General: Skin is warm and dry. Capillary Refill: Capillary refill takes less than 2 seconds. Coloration: Skin is not pale. Findings: No erythema or rash. Comments: Multiple areas of scarring on bilateral arms and bilateral legs appear to be from prior drug use Neurological: General: No focal deficit present. Mental Status: She is lethargic. GCS: GCS eye subscore is 2. GCS verbal subscore is 5. GCS motor subscore is 4. Motor: No weakness. Psychiatric: Thought Content: Thought content normal. Judgment: Judgment normal. Laboratory & Radiological Imaging (if done): Labs Reviewed COMPREHENSIVE METABOLIC PANEL - Abnormal; Notable for the following components: Result Value Bicarbonate 20 (*) Glucose 145 (*) Total Protein 9.0 (*) All other components within normal limits Narrative: [facility] has implemented the eGFR calculation approach that does not have a coefficient for race that conforms to the NKF-ASN Task Force Recommendations. URINALYSIS - Abnormal; Notable for the following components: Clarity, Urine Cloudy (*) pH, Urine 8.0 (*) Ketones, Urine >=80 (*) Blood, Urine Small (*) WBCs, Urine 23 (*) Bacteria, Urine Many (*) Mucus, Urine Many (*) All other components within normal limits Narrative: Microscopic examination is performed on all urinalysis samples and only positive findings are reported. The test for blood on the chemical analytic portion of urinalysis may also be positive due to hemoglobinuria and myoglobinuria and if red blood cells are present they are quantified by microscopic examination. BRAIN NATRIURETIC PEPTIDE - VWH - Abnormal; Notable for the following components: BNP 123 (*) All other components within normal limits BLOOD GAS, VENOUS - Abnormal; Notable for the following components: pCO2, Brant 34.4 (*) pO2, Brant 54 (*) O2 Sat, Brant 87.0 (*) All other components within normal limits POC GLUCOSE - RALS - Abnormal; Notable for the following components: Glucose 133 (*) All other components within normal limits CBC WITH AUTO DIFFERENTIAL - Abnormal; Notable for the following components: WBC 12.40 (*) RBC 5.56 (*) Hemoglobin 16.5 (*) Hematocrit 50.2 (*) MCHC 32.9 (*) MPV 8.3 (*) Neutrophils 92.4 (*) Lymphocytes 5.5 (*) Monocytes 1.8 (*) Neutrophils Abs 11.50 (*) Lymphocytes Abs 0.70 (*) Monocytes Abs 0.20 (*) All other components within normal limits LACTIC ACID, PLASMA - Normal LIPASE - Normal DRUGS OF ABUSE SCREEN, URINE - Normal Narrative: Screen results should be used for treatment purposes only. ALCOHOL, MEDICAL - Normal AMMONIA - Normal URINE AEROBIC CULTURE CBC AND DIFFERENTIAL Narrative: The following orders were created for panel order CBC w/ Diff. Procedure Abnormality Status --------- ------ CBC Auto Differential[[id number]] Abnormal Final result Please view results for these tests on the individual orders. TROPONIN TSH WITH REFLEX FREE T4 CT Head Or Brain Without Contrast Final Result IMPRESSION: No acute large vessel infarct, acute intracranial hemorrhage, or intracranial mass lesion. Electronically signed by: Rubén Yost MD 03/24/2024 06:40 PM [facility] [place], [place] XR Chest 1 View Final Result Radiographically, there is no cardiopulmonary disease. If you have questions or concerns regarding your Radiology (Medical Imaging) report, please reach out to your family provider or the ordering physician. Workstation ID: [id number] Procedures: EKG 12-lead Date/Time: 03/24/2024 4:05 PM Performed by: Hiwot Hoover CNP Authorized by: Hiwot Hoover CNP Rhythm: sinus rhythm BPM: 58 Conduction: conduction normal ST Segments: ST segments normal normal AL interval normal QRS interval normal QT interval Clinical impression: normal ECG Comments: Sinus bradycardia [address] elevation. Critical Care Performed by: Hiwot Hoover CNP Authorized by: Hiwot Hoover CNP Total critical care time: 45 minutes Critical care time was exclusive of separately billable procedures and treating other patients. Critical care was necessary to treat or prevent imminent or life-threatening deterioration of the following conditions: dehydration. Critical care was time spent personally by me on the following activities: blood draw for specimens, development of treatment plan with patient or surrogate, discussions with primary provider, interpretation of cardiac output measurements, evaluation of patient's response to treatment, examination of patient, obtaining history from patient or surrogate, ordering and performing treatments and interventions, ordering and review of laboratory studies, ordering and review of radiographic studies, re-evaluation of patient's condition, review of old charts and vascular access procedures. ED Course / Medical Decision Making: I did personally review Lisa's past medical history, surgical history, social history, as well as family history (when relevant). In this case, I also oversaw the her drug management by reviewingher medication list, allergy list, as well as the medications that I prescribed during the ED course and/or recommended as an out-patient (including possible OTC medications such as acetaminophen, NSAIDs , etc). Her past medical problem list included: Active Ambulatory Problems Diagnosis Date Noted No Active Ambulatory Problems Resolved Ambulatory Problems Diagnosis Date Noted No Resolved Ambulatory Problems Past Medical History: Diagnosis Date Opiate abuse, continuous (HCC) ED MEDICATIONS GIVEN: Medications sodium chloride (PF) (NS) flush 5 mL (has no administration in time range) And sodium chloride 0.9% (NS) (has no administration in time range) cefTRIAXone (ROCEPHIN) 1000 mg in sodium chloride (NS) 0.9% 50 mL MBP (0 mg Intravenous Stopped 03/24/24 191) sodium chloride 0.9% (NS) bolus 1,000 mL (0 mL Intravenous Stopped 03/24/24 1718) ondansetron (ZOFRAN) injection 4 mg (4 mg Intravenous Given 03/24/24 153) naloxone (NARCAN) injection 2 mg (2 mg Subcutaneous Given 03/24/24 153) ondansetron (ZOFRAN) injection 4 mg (4 mg Intravenous Given 03/24/24 1746) hydrALAZINE (APRESOLINE) injection 10 mg (10 mg Intravenous Given 03/24/24 1832) metoclopramide (REGLAN) injection 10 mg (10 mg Intravenous Given 03/24/241832) famotidine (PEPCID) Vial 20 mg (20 mg Intravenous Given 03/24/241832) After reviewing the items above, I did look at previous medical documentation, such as recent hospitalizations, office visits, and/or recent consultations with PCP/specialist. SDOH: Another factor that I considered in Lisa's care was her Social Determinants of Health (SDOH). During this ED encounter, she DID have issues that complicated the ED care today which includedchemical dependency (drugs and/or alcohol) and psychiatric issues. LAB TESTING: Ancillary lab testing: CBC, CMP, lipase, lactic acid, urinalysis, BMP, troponin, POC glucose, urine drug screen, EtOH RADIOLOGY: I did consider radiological studies for Lisa's care today: portable CXR DIFFERENTIAL DIAGNOSES: Opiate withdrawal, narcotic abuse, dehydration, electrolyte imbalance, medication side effect as well as other etiologies. ED COURSE: ED Course as of 03/24/242018Mar 24, [id number] CT Head Or Brain Without Contrast [RA] ED Course User Index [RA] Hiwot Hoover, GR[employer] SACKER Lisa is a 43-year-old female who presents emergency room for complaints of lethargy, weakness, and opioid withdrawal. Patient has a history of IV drug abuse. She has been at a recovery center, [facility]. States last used 3 days ago. She has been a started taking Suboxone 2 days ago. She did have 2 doses of p.o. Phenergan 50 mg in the last 12 hours per facility statement. Patient presents to the emergency room and she is lethargic and unresponsive. Nurses assisted patient to wheelchair and broughther to cot. She is minimally responsive to painful stimuli and sternal rub. 2 mg intranasal Narcan was given patient did sit up and vomit. POC glucose was 133. ED attending, Dr. Lopez at bedside for evaluation with me. She is more responsive but remains sleepy and somewhat lethargic at times. Vital signs are stable. She is hypertensive 189/89. Nontachycardic. Afebrile. She does have extensive scarring on bilateral arms and legs what appears to be from IV drug use. Ultrasound IV x2 were placedby myself for IV access. Labs, EKG, chest x-ray ordered for further evaluation. Patient was given Zofran for symptom management. Per chart review patient has extensive opioid and heroin abuse history with several ED visits for drug overdose. History does include cellulitis of upper extremity, endometriosis, asthma, hepatitis, and depression. Patient is taking Lexapro for depression. WBC 12.4. Hemoglobin 16.5. Hematocrit 50.2. Bicarbonate 20. Glucose 145. BUN 13. Creatinine 0.6. LFTs are normal. Troponin 4. Chest x-ray shows no acute cardiopulmonary process. EtOH less than 10. BNP 123. Lipase 29. Lactic acid 1.9. 1714-suspect symptoms are related to opioid withdrawal and subsequent medications given at facilityto help with symptoms could be causing lethargy. Patient was taking Suboxone and higher dose Phenergan to help with symptoms. Low suspicion for severe sepsis as patient is not tachycardic or febrile.Mild leukocytosis at 12.4. Awaiting urinalysis. As patient remains slightly lethargic would recommend admission overnight for further observation. Spoke with hospitalist Dr. Mercado about admission. He requests additional evaluation at this time including venous blood gas, CT head, and ammonia level before deciding disposition. Updated patient on additional evaluation. Patient remains sleepy but is more alert and answering questions. Statesthat she has withdrawn from opioids several times. Patient states that she was has nausea vomiting and lethargy with her withdrawal. Patient states that she was using IV heroin daily until 3 days ago. Patient requesting additional nausea medication. Zofran ordered. Will continue to monitor and waitfor additional testing. Ammonia negative. Venous pH 7.41. pCO2 34.4. pO2 54. Urinalysis shows nitrate negative, leukocyte negative, WBC 23, many bacteria. Urine culture sent. 1 g Rocephin IV ordered for acute UTI. 182-blood pressure remains elevated 160s-170s systolic. Hydralazine 10 mg IV ordered. Patient returned from CT and is actively vomiting. Reglan and Pepcid ordered. 184-updated hospitalist Dr. Mercado on additional testing results negative. Patient remains sleepy but is easily awakened with name called. Patient does have UTI and IV Rocephin given. Hospitalistagreeable to admission for further observation and evaluation related to possible withdrawal symptoms and UTI. Patient will be admitted to inpatient unit. 185-patient updated on plan for admission overnight for further observation. Patient is more alertat this time. Answering questions easily. States she is still nauseous but vomiting has improved. Denies any flank pain or abdominal tenderness with palpation. Patient does report some urinary symptoms including frequency and burning with urination for a few days. Denies any fevers. . Clinical Impression: 1. Lethargy 2. Nausea and vomiting 3. Acute UTI 4. Hypertension, unspecified type Disposition: ED Disposition ED Disposition Hospitalize Condition -- Comment -- New Prescriptions This print group is not available in inpatient encounters. Please contact a water systems designer. Hiwot Hoover CNP ED [employer] [facility] Hiwot Hoover CNP 03/24/241910 Hiwot Hoover CNP 03/24/242019 Cosigned by Luis Fernando Lopez MD at 03/25/2024 7:30 AM EST * Antonieta Goodwin RN - 03/24/2024 3:21 PM EST Hiwot Hoover CNP at bedside attempting US IV. * Antonieta Goodwin RN - 03/24/2024 3:13 PM EST Blood sugar 133. 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 Pt is unresponsive. Per ORC pt is in withdrawal from opiates. Last use was approximately 3 days ago. Today pt received suboxone and 25 mg phenergan x2. States pt has been super sleepy, weak, bad color, frail, emotional. * Antonieta Goodwin RN - 03/24/2024 3:12 PM EST Nasal narcan given 2 mg admin by DILLON Willoughby per Dr. Lopez. Pt talking, still drowsy. documented in this [id number] History and physical note* Yohan De La Garza CNP - 03/24/2024 7:56 PM EST Lisa Chaudhry is a 43 y.o. female Date: 03/24/2024 Physicians: No, Physician (Family); No ref. provider found (Referring) Chief Complaint: Chief Complaint Patient presents with Withdrawal Altered Mental Status Reason For Consult: Altered mental status Admitting Provider: Dr. Wynn Quality Measures Admitted with these risk variables:None. Please see assessment and plan for further details. HISTORY: Lisa Chaudhry is a 43 y.o. female with past medical history of opioid abuse, gastroenteritis, asthma, hepatitis, endometriosis who presented to the emergency department from drug rehab facility for altered mental status. On arrival patient was reportedly somnolent, was arousable to sternal rub and was given a dose of Narcan and became more arousable. Workup in the emergency department revealed slightly elevated white blood cell count with stable H&H, chemistry panel was essentially unremarkable glucose 145 troponin negative alcohol negative urine drug screen unremarkable chest x-ray and CT head were unremarkable as well EKG sinus rhythm. After the Narcan was given patient became slightly more arousable but since then has become sleepy again. She did have episode of nausea and vomiting after the Narcan and was given antiemetic which has helped resolve the vomiting. Request was made by the attending physician to admit the patient for observation overnight as needed Narcan. Patient seen evaluated bedside in the emergency department. Patient is alert talkative easily arousable to verbal stimuli. Patient denies any recent drug use, reportedly she told the ER that her lastdose of heroin was 3 days ago but she has a negative toxicology screen here. Patient states that she took no additional medications, she was being given Suboxone at the treatment facility, denies anyrecent alcohol use. No suicidal or homicidal ideation. Patient denies any headache, no unilateral extremity weakness or pain. Denies any chest pain, no abdominal pain, no shortness of breath, denies any diarrhea no fever or chills. I discussed all results with the patient and need to admit for obser vation as needed Narcan as needed for suspected opiate use. Patient in agreement with plan of care. Patient request full code CODE STATUS Review of Systems Review of Systems Constitutional: Negative. Negative for activity change and fever. HENT: Negative. Negative for congestion, facial swelling and trouble swallowing. Eyes: Negative for visual disturbance. Respiratory: Negative. Negative for cough, shortness of breath and wheezing. Cardiovascular: Negative. Negative for chest pain. Gastrointestinal: Positive for nausea and vomiting. Negative for abdominal pain and diarrhea. Endocrine: Negative. Negative for polyuria. Genitourinary: Negative. Negative for difficulty urinating and frequency. Musculoskeletal: Negative. Negative for back pain and neck pain. Skin: Negative. Negative for color change, rash and wound. Neurological: Negative. Negative for dizziness, speech difficulty and headaches. Hematological: Negative. Psychiatric/Behavioral: Positive for confusion. Negative for agitation, hallucinations and suicidalideas. Altered mental status All other systems reviewed and are negative. Past Medical History: History reviewed. No pertinent past medical history. Past Surgical History: No past surgical history on file. OB/Menstrual History: Not applicable or deferred. Family History: No family history on file. Social History: Social History Tobacco Use Smoking status: Not on file Smokeless tobacco: Not on file Substance Use Topics Alcohol use: Not on file Allergies: Allergies Allergen Reactions Latex Rash Codeine Other (See Comments), Unknown and GI Intolerance Reaction Unknown: Please investigate and enter into EPIC. Other reaction(s): Vomiting Reaction Unknown: Please investigate and enter into EPIC. Reaction Unknown: Please investigate and enter into EPIC. Other reaction(s): Vomiting Reaction Unknown: Please investigate and enter into [employer]. Home Medications: Prior to Admission medications Medication Sig Start Date End Date Taking? Authorizing Provider escitalopram oxalate (LEXAPRO) 5 MG tablet 01/31/24 Yes Mick Blanchard MD buprenorphine-nalOXone (SUBOXONE) 8-[address] 1 (one) each (1 Film total) under the tongue daily . Mick Blanchard MD busPIRone (BUSPAR) 10 MG tablet Take 1 (one) tablet (10 mg total) by mouth every night at bedtime .Mick Blanchard MD levETIRAcetam (KEPPRA) 500 MG tablet Take 1 (one) tablet (500 mg total) by mouth 2 (two) times a day . Mick Blanchard MD Current Medications: cefTRIAXone (ROCEPHIN) IVPB 1,000 mg Intravenous Q24H Physical Exam: Vitals: 03/24/24 1745 03/24/24 1800 03/24/24 1830 03/24/24 1900 BP: (!) 168/91 (!) 173/88 (!) 177/96 (!) 153/98 BP Location: Patient Position: Pulse: 65 65 62 94 Resp: (!) 11 16 (!) 27 (!) 32 Temp: TempSrc: SpO2: 100% 100% Weight: Physical Exam Vitals and nursing note reviewed. Constitutional: General: She is not in acute distress. Appearance: She is normal weight. She is not ill-appearing. HENT: Head: Normocephalic and atraumatic. Nose: No congestion. Mouth/Throat: Mouth: Mucous membranes are moist. Pharynx: Oropharynx is clear. Eyes: Extraocular Movements: Extraocular movements intact. Conjunctiva/sclera: Conjunctivae normal. Pupils: Pupils are equal, round, and reactive to light. Cardiovascular: Rate and Rhythm: Normal rate and regular rhythm. Pulses: Normal pulses. Heart sounds: Normal heart sounds. Pulmonary: Effort: Pulmonary effort is normal. No respiratory distress. Breath sounds: Normal breath sounds. No wheezing or rhonchi. Abdominal: General: Abdomen is flat. Bowel sounds are normal. Palpations: Abdomen is soft. Tenderness: There is no abdominal tenderness. Musculoskeletal: General: No swelling or tenderness. Normal range of motion. Right lower leg: No edema. Left lower leg: No edema. Skin: General: Skin is dry. Capillary Refill: Capillary refill takes 2 to 3 seconds. Coloration: Skin is not jaundiced. Neurological: General: No focal deficit present. Mental Status: She is alert and oriented to person, place, and time. Motor: No weakness. Psychiatric: Mood and Affect: Mood normal. Behavior: Behavior normal. Thought Content: Thought content normal. Judgment: Judgment normal. Lab Results: Recent Labs 03/24/24 1523 WBC 12.40* RBC 5.56* HGB 16.5* HCT 50.2* Recent Labs 03/24/24 1523 BUN 13 GLUCOSE 145* EGFR 110 CALCIUM 9.6 Recent Labs 03/24/24 1523 AST 24 ALT 19 ALKPHOS 96 ALBUMIN 4.2 No results for input(s): INR in the last 72 hours. Recent Labs 03/24/24 1523 TROPONINI 4 Recent Labs 03/24/24 1740 FIO2 21 Radiology: CT Head Or Brain Without Contrast Final Result IMPRESSION: No acute large vessel infarct, acute intracranial hemorrhage, or intracranial mass lesion. Electronically signed by: Rubén Yost MD 03/24/2024 06:40 PM EST XR Chest 1 View Final Result Radiographically, there is no cardiopulmonary disease. If you have questions or concerns regarding your Radiology (Medical Imaging) report, please reach out to your family provider or the ordering physician. Workstation ID: [id number] EKG: Sinus rhythm Read by ED attending No STEMI Ventricular rate 58 bpm Patient Active Problem List Diagnosis Metabolic encephalopathy Impression: Metabolic encephalopathy -Admit to observation status under hospitalist care -Telemetry monitoring -CT head unremarkable -Ammonia level normal -Add TSH and free T4 -VBG stable -Fall precautions 2. Urinary tract infection -Rocephin daily -Urine culture pending -Slight leukocytosis -Lactic acid normal 3. Dehydration -IV fluid hydration 4. Opiate drug abuse -Talk screen negative -Monitor for withdrawal symptoms 5. DVT prophylaxis -Scheduled heparin 6. Elevated blood glucose -Add hemoglobin A1c 7. Hypertensive urgency -Hydralazine as needed 8. Nausea and vomiting -Zofran as needed -N.p.o. Patient was seen and evaluated at bedside in the emergency department. Patient is currently hemodynamically stable, alert talkative arousable to verbal stimuli denies any drug use or alcohol use today. Denies any other significant past medical history, states she does not take any medications at home. No suicidal or homicidal ideations. I discussed all results with the patient in agreement with plan of care for hospital admission. I will add TSH and free T4, continue IV fluid hydration, as she had 80 ketones in her urine likely dehydrated. As needed Narcan as needed. Does not appear to be septic. Urine culture pending. Greater than 90 minutes of time spent reviewing new and prior records, performing patient interviewand physical exam, and ordering of further workup. Code Status:Full Code Yohan De La Garza CNP Cosigned by Clarence Wynn MD at 03/25/2024 10:55 AM EST [id number] History and physical note* Yohan De La Garza CNP - 03/24/2024 7:56 PM EST Lisa Chaudhry is a 43 y.o. female Date: 03/24/2024 Physicians: No, Physician (Family); No ref. provider found (Referring) Chief Complaint: Chief Complaint Patient presents with Withdrawal Altered Mental Status Reason For Consult: Altered mental status Admitting Provider: Dr. Wynn Quality Measures Admitted with these risk variables:None. Please see assessment and plan for further details. HISTORY: Lisa Chaudhry is a 43 y.o. female with past medical history of opioid abuse, gastroenteritis, asthma, hepatitis, endometriosis who presented to the emergency department from drug rehab facility for altered mental status. On arrival patient was reportedly somnolent, was arousable to sternal rub and was given a dose of Narcan and became more arousable. Workup in the emergency department revealed slightly elevated white blood cell count with stable H&H, chemistry panel was essentially unremarkable glucose 145 troponin negative alcohol negative urine drug screen unremarkable chest x-ray and CT head were unremarkable as well EKG sinus rhythm. After the Narcan was given patient became slightly more arousable but since then has become sleepy again. She did have episode of nausea and vomiting after the Narcan and was given antiemetic which has helped resolve the vomiting. Request was made by the attending physician to admit the patient for observation overnight as needed Narcan. Patient seen evaluated bedside in the emergency department. Patient is alert talkative easily arousable to verbal stimuli. Patient denies any recent drug use, reportedly she told the ER that her lastdose of heroin was 3 days ago but she has a negative toxicology screen here. Patient states that she took no additional medications, she was being given Suboxone at the treatment facility, denies anyrecent alcohol use. No suicidal or homicidal ideation. Patient denies any headache, no unilateral extremity weakness or pain. Denies any chest pain, no abdominal pain, no shortness of breath, denies any diarrhea no fever or chills. I discussed all results with the patient and need to admit for obser vation as needed Narcan as needed for suspected opiate use. Patient in agreement with plan of care. Patient request full code CODE STATUS Review of Systems Review of Systems Constitutional: Negative. Negative for activity change and fever. HENT: Negative. Negative for congestion, facial swelling and trouble swallowing. Eyes: Negative for visual disturbance. Respiratory: Negative. Negative for cough, shortness of breath and wheezing. Cardiovascular: Negative. Negative for chest pain. Gastrointestinal: Positive for nausea and vomiting. Negative for abdominal pain and diarrhea. Endocrine: Negative. Negative for polyuria. Genitourinary: Negative. Negative for difficulty urinating and frequency. Musculoskeletal: Negative. Negative for back pain and neck pain. Skin: Negative. Negative for color change, rash and wound. Neurological: Negative. Negative for dizziness, speech difficulty and headaches. Hematological: Negative. Psychiatric/Behavioral: Positive for confusion. Negative for agitation, hallucinations and suicidalideas. Altered mental status All other systems reviewed and are negative. Past Medical History: History reviewed. No pertinent past medical history. Past Surgical History: No past surgical history on file. OB/Menstrual History: Not applicable or deferred. Family History: No family history on file. Social History: Social History Tobacco Use Smoking status: Not on file Smokeless tobacco: Not on file Substance Use Topics Alcohol use: Not on file Allergies: Allergies Allergen Reactions Latex Rash Codeine Other (See Comments), Unknown and GI Intolerance Reaction Unknown: Please investigate and enter into EP[facility]. Other reaction(s): Vomiting Reaction Unknown: Please investigate and enter into EP[facility]. Reaction Unknown: Please investigate and enter into [facility]. Other reaction(s): Vomiting Reaction Unknown: Please investigate and enter into [facility]. Home Medications: Prior to Admission medications Medication Sig Start Date End Date Taking? Authorizing Provider escitalopram oxalate (LEXAPRO) 5 MG tablet 01/31/24 Yes Mick Blanchard MD buprenorphine-nalOXone (SUBOXONE) 8-[address] 1 (one) each (1 Film total) under the tongue daily . Mick Blanchard MD busPIRone (BUSPAR) 10 MG tablet Take 1 (one) tablet (10 mg total) by mouth every night at bedtime .Mick Blanchard MD levETIRAcetam (KEPPRA) 500 MG tablet Take 1 (one) tablet (500 mg total) by mouth 2 (two) times a day . Mick Blanchard MD Current Medications: cefTRIAXone (ROCEPHIN) IVPB 1,000 mg Intravenous Q24H Physical Exam: Vitals: 03/24/24 1745 03/24/24 1800 03/24/24 1830 03/24/24 1900 BP: (!) 168/91 (!) 173/88 (!) 177/96 (!) 153/98 BP Location: Patient Position: Pulse: 65 65 62 94 Resp: (!) 11 16 (!) 27 (!) 32 Temp: TempSrc: SpO2: 100% 100% Weight: Physical Exam Vitals and nursing note reviewed. Constitutional: General: She is not in acute distress. Appearance: She is normal weight. She is not ill-appearing. HENT: Head: Normocephalic and atraumatic. Nose: No congestion. Mouth/Throat: Mouth: Mucous membranes are moist. Pharynx: Oropharynx is clear. Eyes: Extraocular Movements: Extraocular movements intact. Conjunctiva/sclera: Conjunctivae normal. Pupils: Pupils are equal, round, and reactive to light. Cardiovascular: Rate and Rhythm: Normal rate and regular rhythm. Pulses: Normal pulses. Heart sounds: Normal heart sounds. Pulmonary: Effort: Pulmonary effort is normal. No respiratory distress. Breath sounds: Normal breath sounds. No wheezing or rhonchi. Abdominal: General: Abdomen is flat. Bowel sounds are normal. Palpations: Abdomen is soft. Tenderness: There is no abdominal tenderness. Musculoskeletal: General: No swelling or tenderness. Normal range of motion. Right lower leg: No edema. Left lower leg: No edema. Skin: General: Skin is dry. Capillary Refill: Capillary refill takes 2 to 3 seconds. Coloration: Skin is not jaundiced. Neurological: General: No focal deficit present. Mental Status: She is alert and oriented to person, place, and time. Motor: No weakness. Psychiatric: Mood and Affect: Mood normal. Behavior: Behavior normal. Thought Content: Thought content normal. Judgment: Judgment normal. Lab Results: Recent Labs 03/24/24 1523 WBC 12.40* RBC 5.56* HGB 16.5* HCT 50.2* Recent Labs 03/24/24 1523 BUN 13 GLUCOSE 145* EGFR 110 CALCIUM 9.6 Recent Labs 03/24/24 1523 AST 24 ALT 19 ALKPHOS 96 ALBUMIN 4.2 No results for input(s): INR in the last 72 hours. Recent Labs 03/24/24 1523 TROPONINI 4 Recent Labs 03/24/24 1740 FIO2 21 Radiology: CT Head Or Brain Without Contrast Final Result IMPRESSION: No acute large vessel infarct, acute intracranial hemorrhage, or intracranial mass lesion. Electronically signed by: Rubén Yost MD 03/24/2024 06:40 PM [facility] [place], [place] XR Chest 1 View Final Result Radiographically, there is no cardiopulmonary disease. If you have questions or concerns regarding your Radiology (Medical Imaging) report, please reach out to your family provider or the ordering physician. Workstation ID: [id number] EKG: Sinus rhythm Read by ED attending No STEMI Ventricular rate 58 bpm Patient Active Problem List Diagnosis Metabolic encephalopathy Impression: Metabolic encephalopathy -Admit to observation status under hospitalist care -Telemetry monitoring -CT head unremarkable -Ammonia level normal -Add TSH and free T4 -VBG stable -Fall precautions 2. Urinary tract infection -Rocephin daily -Urine culture pending -Slight leukocytosis -Lactic acid normal 3. Dehydration -IV fluid hydration 4. Opiate drug abuse -Talk screen negative -Monitor for withdrawal symptoms 5. DVT prophylaxis -Scheduled heparin 6. Elevated blood glucose -Add hemoglobin A1c 7. Hypertensive urgency -Hydralazine as needed 8. Nausea and vomiting -Zofran as needed -N.p.o. Patient was seen and evaluated at bedside in the emergency department. Patient is currently hemodynamically stable, alert talkative arousable to verbal stimuli denies any drug use or alcohol use today. Denies any other significant past medical history, states she does not take any medications at home. No suicidal or homicidal ideations. I discussed all results with the patient in agreement with plan of care for hospital admission. I will add TSH and free T4, continue IV fluid hydration, as she had 80 ketones in her urine likely dehydrated. As needed Narcan as needed. Does not appear to be septic. Urine culture pending. Greater than 90 minutes of time spent reviewing new and prior records, performing patient interviewand physical exam, and ordering of further workup. Code Status:Full Code Yohan De La Garza CNP Cosigned by Clarence Wynn MD at 03/25/2024 10:55 AM EST documented in this [id number] Emergency department Note* Micha Pedersen RN - 03/24/2024 7:40 PM EST Pt will be admitted to room 2003 with Tino CARRANZA assigned. [id number] Emergency department Note* Antonieta Goodwin RN - 03/24/2024 7:40 PM EST Pt to go to Tino Blakely RN [id number] Emergency department Note* Jessi Poe RN - 03/24/2024 7:03 PM EST Bed request/admit dispo noted, Micha CARRANZA/[employer] Technician notified of pending admission. [id number] Emergency department Note* Pete Maldonado RN - 03/24/2024 6:41 PM EST Patient medicated per MAR. No further needs at this time. [id number] Emergency department Note* Pete Maldonado RN - 03/24/2024 6:31 PM EST Patient returned from CT, large episode of emesis in [facility]. Pt cleaned up, [employer] aware, see orders. [address]2024 Emergency department Note* Pete Maldonado RN - 03/24/2024 5:46 PM EST Patient medicated per MAR. No further needs. [id number] Emergency department Note* Antonieta Goodwin RN - 03/24/2024 4:46 PM EST Lab unable to collect lactic blood draw. Hiwot WOLFE notified [address]2024 Emergency department Note* Pete Maldonado RN - 03/24/2024 4:45 PM EST Patient voided on bedpan, sample collected. [address]2024 Emergency department Note* Antonieta Goodwin RN - 03/24/2024 4:37 PM EST Lab remains at bedside for blood draw [address]2024 Emergency department Note* Pete Maldonado RN - 03/24/2024 3:55 PM EST X ray at bedside [id number] Emergency department Note* Pete Maldonado RN - 03/24/2024 3:51 PM EST Phlebotomy at beside [id number] Physician Emergency department Note* ED Attestation Note - Luis Fernando Lopez MD - 03/24/2024 3:44 PM EST ED Attestation: I did not see this patient. However, I was personally available for consult in the ED for this patient, if the Advanced Practice Provider (ROCCO) needed any assistance. The ROCCO evaluated the patient independently for a complaint of Withdrawal and Altered Mental Status, and completed their own examination, documentation, and discharge. [facility] Work Phone: [phone] 375-111912-04-2024 Emergency department Note* Antonieta Goodwin RN - 03/24/2024 3:34 PM EST Straight cath attempt x2 by DILLON Willoughby. Unsuccessful urine collection. Per Hiwot Hoover NP attempt after bolus of fluid. [id number] Physician Emergency department Note* Hiwot Hoover CNP - 03/24/2024 3:31 PM ESTAssociated Order(s): EKG 12-lead; Critical Care [facility] ATTENDING NOTE: NAME: Lisa Chaudhry CSN: [id number] 43 y.o. PCP: No, Physician History: Chief Complaint: Withdrawal and Altered Mental Status HPI: The history was obtained from the patient. Lisa is a 43 y.o. female who presents with a chief complaint of Withdrawal and Altered Mental Status. Past medical history of drug abuse. 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 Patient was being seen there for opioid abuse. States she last used approximately 3 days ago. Started Suboxone 2 days ago. Patient started having withdrawal symptoms today. She was lethargic and unresponsive upon arrival. Per report from's facility patient had been super sleepy, weak, emotionally labile, and had a bad color . Nursing staff brought patient in per wheelchair patient is unresponsive on cot. Minimally responsive only after several sternal rubs. 2 mg Narcan given due to decreased mental awareness and history of drug abuse. Patient remains lethargic but is responsive to questions asked. Patient did vomit after Narcan dose. Vital signs are stable. She is hypertensive 189/89. Afebrile. Nontachycardic. 98% on room air. Jdfnr-pl-cixl glucose was checked 133. Patient is in no respiratory distress. PMHx: Past Medical History: Diagnosis Date Opiate abuse, continuous (HCC) PMSx: No past surgical history on file. FAM. Hx: No family history on file. SOC. Hx: Social History Socioeconomic History Marital status: Single Substance and Sexual Activity Drug use: Yes Types: Opiates, Heroin Social Drivers of Health Financial Resource Strain: Low Risk (06/17/2023) Received from [facility] Overall Financial Resource Strain (CARDIA) Difficulty of Paying Living Expenses: Not very hard Food Insecurity: Food Insecurity Present (06/17/2023) Received from [facility] Hunger Vital Sign Worried About Running Out of Food in the Last Year: Sometimes true Ran Out of Food in the Last Year: Sometimes true Transportation Needs: No Transportation Needs (06/17/2023) Received from [facility] PRAPARE - Transportation Lack of Transportation (Medical): No Lack of Transportation (Non-Medical): No Housing Stability: Unknown (06/17/2023) Received from [facility] Housing Stability Vital Sign Unable to Pay for Housing in the Last Year: Patient refused Number of Places Lived in the Last Year: 1 Unstable Housing in the Last Year: Patient refused MEDs: Previous Medications Medication Sig escitalopram oxalate (LEXAPRO) 5 MG tablet buprenorphine-nalOXone (SUBOXONE) 8-[address] 1 (one) each (1 Film total) under the tongue daily . busPIRone (BUSPAR) 10 MG tablet Take 1 (one) tablet (10 mg total) by mouth every night at bedtime . levETIRAcetam (KEPPRA) 500 MG tablet Take 1 (one) tablet (500 mg total) by mouth 2 (two) times a day . ALL: Allergies Allergen Reactions Latex Rash Codeine Other (See Comments), Unknown and GI Intolerance Reaction Unknown: Please investigate and enter into EPIC. Other reaction(s): Vomiting Reaction Unknown: Please investigate and enter into EPIC. Reaction Unknown: Please investigate and enter into EPIC. Other reaction(s): Vomiting Reaction Unknown: Please investigate and enter into EPIC. ROS: Review of Systems Unable to perform ROS: Patient unresponsive Constitutional: Negative for chills and fever. HENT: Negative for ear pain and sore throat. Eyes: Negative for discharge and redness. Respiratory: Negative for cough, chest tightness, shortness of breath and wheezing. Cardiovascular: Negative for chest pain, palpitations and leg swelling. Gastrointestinal: Negative for abdominal distention, abdominal pain, diarrhea and vomiting. Genitourinary: Negative for dysuria, flank pain, frequency, hematuria and urgency. Musculoskeletal: Negative for back pain and neck pain. Skin: Negative for pallor and rash. Neurological: Negative for dizziness, light-headedness and headaches. Psychiatric/Behavioral: Negative for agitation and behavioral problems. The patient is not nervous/anxious. Positives and pertinent negatives as per HPI. All other systems were reviewed and are negative. Physical Exam: Patient Vitals for the past 24 hrs: BP Temp Temp src Pulse Resp SpO2 Weight 03/24/242012 -- 98.7 F (37.1 C) Temporal 94 (!) 28 100 % -- 03/24/24 1930 (!) 150/98 -- -- 85 (!) 32 -- -- 03/24/24 1900 (!) 153/98 -- -- 94 (!) 32 -- -- 03/24/24 1830 (!) 177/96 -- -- 62 (!) 27 -- -- 03/24/24 1800 (!) 173/88 -- -- 65 16 100 % -- 03/24/24 1745 (!) 168/91 -- -- 65 (!) 11 100 % -- 03/24/24 1730 (!) 158/88 -- -- 72 (!) 29 100 % -- 03/24/24 1652 (!) 174/98 -- -- (!) 57 (!) 27 100 % -- 03/24/24 1600 (!) 176/102 -- -- (!) 57 (!) 21 100 % -- 03/24/24 1530 (!) 189/89 -- -- 61 (!) 26 98 % -- 03/24/24 1515 (!) 171/107 -- -- (!) 59 (!) 22 99 % -- 03/24/24 1511 (!) 156/88 98.1 F (36.7 C) Temporal (!) 55 -- 100 % 67 kg (147 lb 12.8 oz) Physical Exam Vitals and nursing note reviewed. Constitutional: General: She is not in acute distress. Appearance: Normal appearance. She is well-developed. She is not ill-appearing or toxic-appearing. HENT: Head: Normocephalic. Right Ear: External ear normal. Left Ear: External ear normal. Nose: Nose normal. No congestion. Mouth/Throat: Mouth: Mucous membranes are moist. Pharynx: Oropharynx is clear. Eyes: General: Right eye: No discharge. Left eye: No discharge. Conjunctiva/sclera: Conjunctivae normal. Pupils: Pupils are equal, round, and reactive to light. Comments: Dilated pupils Cardiovascular: Rate and Rhythm: Normal rate and regular rhythm. Pulses: Normal pulses. Heart sounds: Normal heart sounds. No murmur heard. No friction rub. Musculoskeletal: General: No swelling or tenderness. Right lower leg: No edema. Left lower leg: No edema. Pulmonary: Effort: Pulmonary effort is normal. No respiratory distress. Breath sounds: Normal breath sounds. No wheezing or rhonchi. Abdominal: General: Bowel sounds are normal. There is no distension. Tenderness: There is no abdominal tenderness. There is no guarding. Skin: General: Skin is warm and dry. Capillary Refill: Capillary refill takes less than 2 seconds. Coloration: Skin is not pale. Findings: No erythema or rash. Comments: Multiple areas of scarring on bilateral arms and bilateral legs appear to be from prior drug use Neurological: General: No focal deficit present. Mental Status: She is lethargic. GCS: GCS eye subscore is 2. GCS verbal subscore is 5. GCS motor subscore is 4. Motor: No weakness. Psychiatric: Thought Content: Thought content normal. Judgment: Judgment normal. Laboratory & Radiological Imaging (if done): Labs Reviewed COMPREHENSIVE METABOLIC PANEL - Abnormal; Notable for the following components: Result Value Bicarbonate 20 (*) Glucose 145 (*) Total Protein 9.0 (*) All other components within normal limits Narrative: [facility] Laboratory Services has implemented the eGFR calculation approach that does not have a coefficient for race that conforms to the NKF-ASN Task Force Recommendations. URINALYSIS - Abnormal; Notable for the following components: Clarity, Urine Cloudy (*) pH, Urine 8.0 (*) Ketones, Urine >=80 (*) Blood, Urine Small (*) WBCs, Urine 23 (*) Bacteria, Urine Many (*) Mucus, Urine Many (*) All other components within normal limits Narrative: Microscopic examination is performed on all urinalysis samples and only positive findings are reported. The test for blood on the chemical analytic portion of urinalysis may also be positive due to hemoglobinuria and myoglobinuria and if red blood cells are present they are quantified by microscopic examination. BRAIN NATRIURETIC PEPTIDE - VWH - Abnormal; Notable for the following components: BNP 123 (*) All other components within normal limits BLOOD GAS, VENOUS - Abnormal; Notable for the following components: pCO2, Brant 34.4 (*) pO2, Brant 54 (*) O2 Sat, Brant 87.0 (*) All other components within normal limits POC GLUCOSE - RALS - Abnormal; Notable for the following components: Glucose 133 (*) All other components within normal limits CBC WITH AUTO DIFFERENTIAL - Abnormal; Notable for the following components: WBC 12.40 (*) RBC 5.56 (*) Hemoglobin 16.5 (*) Hematocrit 50.2 (*) MCHC 32.9 (*) MPV 8.3 (*) Neutrophils 92.4 (*) Lymphocytes 5.5 (*) Monocytes 1.8 (*) Neutrophils Abs 11.50 (*) Lymphocytes Abs 0.70 (*) Monocytes Abs 0.20 (*) All other components within normal limits LACTIC ACID, PLASMA - Normal LIPASE - Normal DRUGS OF ABUSE SCREEN, URINE - Normal Narrative: Screen results should be used for treatment purposes only. ALCOHOL, MEDICAL - Normal AMMONIA - Normal URINE AEROBIC CULTURE CBC AND DIFFERENTIAL Narrative: The following orders were created for panel order CBC w/ Diff. Procedure Abnormality Status --------- ------ CBC Auto Differential[[id number]] Abnormal Final result Please view results for these tests on the individual orders. TROPONIN TSH WITH REFLEX FREE T4 CT Head Or Brain Without Contrast Final Result IMPRESSION: No acute large vessel infarct, acute intracranial hemorrhage, or intracranial mass lesion. Electronically signed by: Rubén Yost MD 03/24/2024 06:40 PM EST XR Chest 1 View Final Result Radiographically, there is no cardiopulmonary disease. If you have questions or concerns regarding your Radiology (Medical Imaging) report, please reach out to your family provider or the ordering physician. Workstation ID: [id number] Procedures: EKG 12-lead Date/Time: 03/24/2024 4:05 PM Performed by: Hiwot Hoover CNP Authorized by: Hiwot Hoover CNP Rhythm: sinus rhythm BPM: 58 Conduction: conduction normal ST Segments: ST segments normal normal AL interval normal QRS interval normal QT interval Clinical impression: normal ECG Comments: Sinus bradycardia [address] elevation. Critical Care Performed by: Hiwot Hoover CNP Authorized by: Hiwot Hoover CNP Total critical care time: 45 minutes Critical care time was exclusive of separately billable procedures and treating other patients. Critical care was necessary to treat or prevent imminent or life-threatening deterioration of the following conditions: dehydration. Critical care was time spent personally by me on the following activities: blood draw for specimens, development of treatment plan with patient or surrogate, discussions with primary provider, interpretation of cardiac output measurements, evaluation of patient's response to treatment, examination of patient, obtaining history from patient or surrogate, ordering and performing treatments and interventions, ordering and review of laboratory studies, ordering and review of radiographic studies, re-evaluation of patient's condition, review of old charts and vascular access procedures. ED Course / Medical Decision Making: I did personally review Lisa's past medical history, surgical history, social history, as well as family history (when relevant). In this case, I also oversaw the her drug management by reviewingher medication list, allergy list, as well as the medications that I prescribed during the ED course and/or recommended as an out-patient (including possible OTC medications such as acetaminophen, NSAIDs , etc). Her past medical problem list included: Active Ambulatory Problems Diagnosis Date Noted No Active Ambulatory Problems Resolved Ambulatory Problems Diagnosis Date Noted No Resolved Ambulatory Problems Past Medical History: Diagnosis Date Opiate abuse, continuous (HCC) ED MEDICATIONS GIVEN: Medications sodium chloride (PF) (NS) flush 5 mL (has no administration in time range) And sodium chloride 0.9% (NS) (has no administration in time range) cefTRIAXone (ROCEPHIN) 1000 mg in sodium chloride (NS) 0.9% 50 mL MBP (0 mg Intravenous Stopped 03/24/24 191) sodium chloride 0.9% (NS) bolus 1,000 mL (0 mL Intravenous Stopped 03/24/24 171) ondansetron (ZOFRAN) injection 4 mg (4 mg Intravenous Given 03/24/24 153) naloxone (NARCAN) injection 2 mg (2 mg Subcutaneous Given 03/24/24 153) ondansetron (ZOFRAN) injection 4 mg (4 mg Intravenous Given 03/24/24 1746) hydrALAZINE (APRESOLINE) injection 10 mg (10 mg Intravenous Given 03/24/24 183) metoclopramide (REGLAN) injection 10 mg (10 mg Intravenous Given 03/24/24 183) famotidine (PEPCID) Vial 20 mg (20 mg Intravenous Given 03/24/24 183) After reviewing the items above, I did look at previous medical documentation, such as recent hospitalizations, office visits, and/or recent consultations with PCP/specialist. SDOH: Another factor that I considered in Lisa's care was her Social Determinants of Health (SDOH). During this ED encounter, she DID have issues that complicated the ED care today which includedchemical dependency (drugs and/or alcohol) and psychiatric issues. LAB TESTING: Ancillary lab testing: CBC, CMP, lipase, lactic acid, urinalysis, BMP, troponin, POC glucose, urine drug screen, EtOH RADIOLOGY: I did consider radiological studies for Lisa's care today: portable CXR DIFFERENTIAL DIAGNOSES: Opiate withdrawal, narcotic abuse, dehydration, electrolyte imbalance, medication side effect as well as other etiologies. ED COURSE: ED Course as of 03/24/242018Mar 24, [address] Head Or Brain Without Contrast [RA] ED Course User Index [RA] Hiwot Hoover, GROCERY SACKER Lisa is a 43-year-old female who presents emergency room for complaints of lethargy, weakness, and opioid withdrawal. Patient has a history of IV drug abuse. She has been at a recovery center, [facility]. States last used 3 days ago. She has been a started taking Suboxone 2 days ago. She did have 2 doses of p.o. Phenergan 50 mg in the last 12 hours per facility statement. Patient presents to the emergency room and she is lethargic and unresponsive. Nurses assisted patient to wheelchair and broughther to cot. She is minimally responsive to painful stimuli and sternal rub. 2 mg intranasal Narcan was given patient did sit up and vomit. POC glucose was 133. ED attending, Dr. Lopez at bedside for evaluation with me. She is more responsive but remains sleepy and somewhat lethargic at times. Vital signs are stable. She is hypertensive 189/89. Nontachycardic. Afebrile. She does have extensive scarring on bilateral arms and legs what appears to be from IV drug use. Ultrasound IV x2 were placedby myself for IV access. Labs, EKG, chest x-ray ordered for further evaluation. Patient was given Zofran for symptom management. Per chart review patient has extensive opioid and heroin abuse history with several ED visits for drug overdose. History does include cellulitis of upper extremity, endometriosis, asthma, hepatitis, and depression. Patient is taking Lexapro for depression. WBC 12.4. Hemoglobin 16.5. Hematocrit 50.2. Bicarbonate 20. Glucose 145. BUN 13. Creatinine 0.6. LFTs are normal. Troponin 4. Chest x-ray shows no acute cardiopulmonary process. EtOH less than 10. BNP 123. Lipase 29. Lactic acid 1.9. 1714-suspect symptoms are related to opioid withdrawal and subsequent medications given at facilityto help with symptoms could be causing lethargy. Patient was taking Suboxone and higher dose Phenergan to help with symptoms. Low suspicion for severe sepsis as patient is not tachycardic or febrile.Mild leukocytosis at 12.4. Awaiting urinalysis. As patient remains slightly lethargic would recommend admission overnight for further observation. Spoke with hospitalist Dr. Mercado about admission. He requests additional evaluation at this time including venous blood gas, CT head, and ammonia level before deciding disposition. Updated patient on additional evaluation. Patient remains sleepy but is more alert and answering questions. Statesthat she has withdrawn from opioids several times. Patient states that she was has nausea vomiting and lethargy with her withdrawal. Patient states that she was using IV heroin daily until 3 days ago. Patient requesting additional nausea medication. Zofran ordered. Will continue to monitor and waitfor additional testing. Ammonia negative. Venous pH 7.41. pCO2 34.4. pO2 54. Urinalysis shows nitrate negative, leukocyte negative, WBC 23, many bacteria. Urine culture sent. 1 g Rocephin IV ordered for acute UTI. 1824-blood pressure remains elevated 160s-170s systolic. Hydralazine 10 mg IV ordered. Patient returned from CT and is actively vomiting. Reglan and Pepcid ordered. 1844-updated hospitalist Dr. Mercado on additional testing results negative. Patient remains sleepy but is easily awakened with name called. Patient does have UTI and IV Rocephin given. Hospitalistagreeable to admission for further observation and evaluation related to possible withdrawal symptoms and UTI. Patient will be admitted to inpatient unit. 1849-patient updated on plan for admission overnight for further observation. Patient is more alertat this time. Answering questions easily. States she is still nauseous but vomiting has improved. Denies any flank pain or abdominal tenderness with palpation. Patient does report some urinary symptoms including frequency and burning with urination for a few days. Denies any fevers. . Clinical Impression: 1. Lethargy 2. Nausea and vomiting 3. Acute UTI 4. Hypertension, unspecified type Disposition: ED Disposition ED Disposition Hospitalize Condition -- Comment -- New Prescriptions This print group is not available in inpatient encounters. Please contact a water systems designer. Hiwot Hoover CNP ED [facility] Hiwot Hoover CNP 03/24/241910 Hiwot Hoover CNP 03/24/242019 Cosigned by Luis Fernando Lopez MD at 03/25/2024 7:30 AM EST [id number] Emergency department Note* Antonieta Goodwin RN - 03/24/2024 3:21 PM EST Hiwot Hoover CNP at bedside attempting US IV. [id number] Emergency department Note* Antonieta Goodwin RN - 03/24/2024 3:13 PM EST Blood sugar 133. 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 Pt is unresponsive. Per [facility] pt is in withdrawal from opiates. Last use was approximately 3 days ago. Today pt received suboxone and 25 mg phenergan x2. States pt has been super sleepy, weak, bad color, frail, emotional. [id number] Emergency department Note* Antonieta Goodwin RN - 03/24/2024 3:12 PM EST Nasal narcan given 2 mg admin by DILLON Willoughby per Dr. Lopez. Pt talking, still drowsy. [id number] Emergency department Note* Mónica Mcgowan RN - 12/23/2023 10:30 PM EDT Pt brought in by [employer] [facility] [employer]. Pt was found at [employer]. Pt stated she slab puller to the [employer] because she was lost and was out of gas. Per [facility] police went out to see pt because people stated pt had been following them in her car.pt is denying this Pt is currently denying any suicidal ideation or any history of suicidal ideation. Pt states she has a hx of depression but feels as though it is well control with her Lexapro. Pt states she feels though she does not need to be seen in the hospital but felt pressure to go by [place]. [employer] did not pink slip pt. DR Hernandez broughtto bedside and update with all information from [email or web address] [facility] and believe psychiatric evaluation for this pt is not need at this time. Mónica Mcgowan RN 12/23/230 [facility] Work Phone: 1(954) 583-431409-03-2024 Emergency department Note* Mónica Mcgowan RN - 12/23/2023 10:30 PM EDT Pt brought in by [employer] [facility] [employer]. Pt was found at [employer]. Pt stated she slab puller to the [employer] because she was lost and was out of gas. Per [facility] police went out to see pt because people stated pt had been following them in her car.pt is denying this Pt is currently denying any suicidal ideation or any history of suicidal ideation. Pt states she has a hx of depression but feels as though it is well control with her Lexapro. Pt states she feels though she does not need to be seen in the hospital but felt pressure to go by [place]. [employer] did not pink slip pt. DR Hernandez broughtto bedside and update with all information from [email or web address] [facility] and believe psychiatric evaluation for this pt is not need at this time. Mónica Mcgowan RN 12/23/23 5038 [facility] Work Phone: [phone]) 850-450307-10-2024 Telephone encounter Note* Telephone Encounter - Chayito Mccord MA - 10/29/2023 2:34 PM EDT Called pt to schedule pap. [place] to [place] [facility] voice mailbox not being set up. [facility] [id number] Miscellaneous Notes* Telephone Encounter - Chayito Mccord MA - 10/29/2023 2:34 PM EDT Called pt to schedule pap. Unable to [place] [facility] [place] voice mailbox not being set up. * Telephone Encounter - Citlaly Bennett - 10/28/2023 1:21 PM EDT Tried calling patient 10/28/23. To schedule a repeat pap. No answer, No voicemail. * Telephone Encounter - Chayito Mccord MA - 09/25/2023 8:05 AM EDT [facility] to schedule appt * Telephone Encounter - Shante Worley MD - 09/24/2023 6:40 PM EDT Pt due for repeat pap ho leep. Please call and help schedule documented in this encounterSKettering Health [facility] [id number] Telephone encounter Note* Telephone Encounter - Citlaly Bennett - 10/28/2023 1:21 PM EDT Tried calling patient 10/28/23. To schedule a repeat pap. No answer, No voicemail. [facility] [id number] Miscellaneous Notes* Telephone Encounter - Citlaly ZhuRubin Bennett - 10/28/2023 1:21 PM EDT Tried calling patient 10/28/23. To schedule a repeat pap. No answer, No voicemail. * Telephone Encounter - Chayito Mccord MA - 09/25/2023 8:05 AM EDT [employer] sent to schedule appt * Telephone Encounter - Shante Worley MD - 09/24/2023 6:40 PM EDT Pt due for repeat pap ho leep. Please call and help schedule documented in this encounterSKettering Health Greene [id number] Telephone encounter Note* Telephone Encounter - Chayito Mccord MA - 09/25/2023 8:05 AM EDT [employer] sent to schedule appt [facility] [id number] Telephone encounter Note* Telephone Encounter - Shante Worley MD - 09/24/2023 6:40 PM EDT Pt due for repeat pap ho leep. Please call and help schedule [facility] [id number] NoteHNO ID: [id number] Author: YULISSA MADISON RN Service: Care Management Author Type: Registered Nurse Type: Care Mgt Progress Note Filed: 06/19/2023 10:49 Note Text: CARE MANAGEMENT DISCHARGE NOTE SERVICE DATE: June 19, 2023 SERVICE TIME: 10:45 Admission Date: 06/16/2023 LOS: 0 days Discharge Arrangement Discharge Arrangement: Home with Self Care Services Arranged Medical Services: Other: See Comment (None) Provider Name: Amaya Mireles Caregiver Assessment Caregiver is ready, willing and able to meet the patient's needs as recommended by the inter-professional team: No Caregiver needed Transportation Arrangements Transportation Arrangements: Car Destination: Home Handoff Communication: Handoff to: Primary Care Physician Primary Care Physician Name/Phone: Konrad Hampton Additional Information: . Pt will be discharged to home, no needs. Pt refuses resources. Family to transport. SIGNATURE: Yulissa Madison RN PATIENT NAME: Lisa Chaudhry DATE: June 19, 2023 TIME: 10:45 AM CONTACT #: [id number] NoteHNO ID: [id number] Author: YULISSA MADISON RN Service: Care Management Author Type: Registered Nurse Type: Care Mgt Progress Note Filed: 06/19/2023 10:49 Note Text: CARE MANAGEMENT DISCHARGE NOTE SERVICE DATE: June 19, 2023 SERVICE TIME: 10:45 Admission Date: 06/16/2023 LOS: 0 days Discharge Arrangement Discharge Arrangement: Home with Self Care Services Arranged Medical Services: Other: See Comment (None) Provider Name: Amaya Mireles Caregiver Assessment Caregiver is ready, willing and able to meet the patient's needs as recommended by the inter-professional team: No Caregiver needed Transportation Arrangements Transportation Arrangements: Car Destination: Home Handoff Communication: Handoff to: Primary Care Physician Primary Care Physician Name/Phone: Konrad Hampton Additional Information: . Pt will be discharged to home, no needs. Pt refuses resources. Family to transport. SIGNATURE: Yulissa Madison RN PATIENT NAME: Lisa Chaudhry DATE: June 19, 2023 TIME: 10:45 AM CONTACT #: [id number] NoteHNO ID: [id number] Author: AMAYA VÁZQUEZ PA-C Service: Hospital Medicine Author Type: Physician Mill Operator Type: Progress Notes Filed: 06/18/2023 13:33 Note Text: DEPARTMENT OF HOSPITAL MEDICINE PROGRESS NOTE SERVICE DATE: 06/18/2023 SERVICE TIME: 1:32 PM Hospital Medicine/Primary Attending: Mitchell Hannon MD NIGHT AND WEEKEND COVERAGE: [place] COVERAGE: Days: [phone], please page attending physician. Nights: [phone], please page [facility] Night coverage pager [phone]. Subjective INTERVAL HPI: -ECHO completed this morning -low grade temp this morning -BCx ng1d, await UCx -anticipate d/c tomorrow Current Facility-Administered Medications Medication Dose Route Frequency NaCl 0.9% iv flush bag 20 mL INTRAVENOUS PRN cefTRIAXone iv piggyback 1 g in dextrose (iso-osmotic) 50 mL (ROCEPHIN) 1 g INTRAVENOUS q 24 H sodium chloride 0.9 % (flush) 2-10 mL (BD POSIFLUSH) 2-10 mL INTRAVENOUS DIRECTED PRN And perflutren lipid microspheres 1.1 mg/mL 1.3 mL injection (DEFINITY) 1.3 mL INTRAVENOUS DIRECTED PRN acetaminophen 650 mg tab(s) (TYLENOL) 650 mg ORAL q 6 H PRN dextromethorphan-guaiFENesin 1 tablet (MUCINEX DM) 1 tablet ORAL q 12 H ondansetron (PF) 4 mg injection (ZOFRAN) 4 mg INTRAVENOUS q 6 H PRN Objective PHYSICAL EXAM: BP 108/65 Pulse 68 Temp (Src) 98.3 (Oral) Resp 18 Ht 5' 8 (1.73m) Wt 170 lb 10.2 oz (77.4kg) SpO2 97% BMI 25.95 kg/(m2). O2 Therapy: Room Air, Liters: 2.00 Physical Exam Performed GENERAL: alert, no distress, cooperative SKIN: Skin color, texture, turgor normal. No rashes or lesions. NECK: no jugulovenous distention, supple BACK: Back symmetric, Normal curvature, ROM normal, No CVAT. LUNGS: Lungs clear to auscultation. Good diaphragmatic excursion. CARDIAC: RRR; no rubs, murmurs, or gallops ABDOMEN: Abdomen soft, non-tender. BS normal. No masses or organomegaly. EXTREMITIES: Extremities normal. No deformities, edema, clubbing or skin discoloration., No ulcers NEURO: Sensation grossly intact., Cranial nerves II-XII intact Lines, Drains, and Airways Line Duration Peripheral 06/16/23 0837 [facility] Short Right Arm 20 Gauge 2 days Reviewed lines and needs to be continued: REASONS: Intravenous fluids DATA: Diagnostic tests reviewed for today's visit: Most recent labs Most recent imaging Assessment/Plan Problem List Drug overdose of undetermined intent, initial encounter (POA: Yes) Infective urethritis (POA: Status not on file) Unstable angina pectoris (HCC) (POA: Status not on file) Acidosis (POA: Status not on file) Opioid use disorder (POA: Status not on file) Fever (POA: Status not on file) Chest pain (POA: Status not on file) HOSPITAL COURSE: 43 year old female with hx of drug/Heroin abuse presents with drug overdose. Pt was reportedly found naked in basement, breathing agonally, with white substance around her. She reportedly responded to narcan. Utox positive for cocaine only. She denies knowledge of any possible illicit substance and denies suicidal ideology or attempt. Drug overdose Minimally responsive and agonal breathing improved with narcan H/o heroin use Clinical depression Could be mixed with opiods. Improved with intranasal narcan. -Currently back to baseline mentation. Denies use of illicit drug - states previously injected heroin but claims has not used in about a year -recommend avoiding illicit substances -Psychiatry consult: signed off -HS trop, D-dimer, BNP, CRP, WBC all elevated -HS trop downtrending, EKG NSR no STEMI -psych evaluated and signed off Dysuria Fever -Leucocytosis 22k>16k -fever could be 2/2 drug use -was empirically started on CTX for UTI (she is having dysuria but UA is bland) -ceftriaxone for now -ECHO completed this morning -low grade temp this morning -BCx ng1d, await UCx -anticipate d/c tomorrow Gap metabolic acidosis Hypovolemia Clinical dehydration Less concerning for methyl/ethylene glycol overdose. Maintenance IVF Left sided non radiating chest pain Trop 69>81>61 Less concerning for pleuritic or pericardial condition But CXR does show bilateral nonspecific prominence of pulmonary vasculature. Monitor on telemetry -HS trop, D-dimer, BNP, CRP, WBC all elevated -HS trop downtrending, EKG NSR no STEMI -ECHO Fall CT head/face/ cervical spine is clear without fracture Fall precautions Difficult IV access Has 18G IV line Medication and Non-Pharmacologic VTE Prophylaxis/Anticoagulants VTE Prophylaxis: VTE prophylaxis appropriate Disposition: Home Plan of care discussed with Provider, RN, Patient Plan communicated to: Patient prefers to communicate with family. SIGNATURE: Amaya Vázquez PA-C PATIENT NAME: Lisa Chaudhry DATE: 06/18/2023 TIME: 1:32 PMClinton Memorial [id number] NoteHNO ID: [id number] Author: AMAYA VÁZQUEZ PA-C Service: Hospital Medicine Author Type: Physician Mill Operator Type: Progress Notes Filed: 06/17/2023 13:53 Note Text: DEPARTMENT OF HOSPITAL MEDICINE PROGRESS NOTE SERVICE DATE: 06/17/2023 SERVICE TIME: 1:44 PM Hospital Medicine/Primary Attending: Mitchell Hannon MD NIGHT AND WEEKEND COVERAGE: [place] COVERAGE: : [phone], please page attending physician. Nights: [phone], please page [facility] Night coverage pager [phone]. Subjective INTERVAL HPI: -reportedly found naked in basement, breathing agonally, with white substance around her. She reportedly responded to narcan -Utox positive for cocaine only -she denies knowledge of any possible illicit substance and denies suicidal ideology or attempt -HS trop, D-dimer, BNP, CRP, WBC all elevated -HS trop downtrending, EKG NSR no STEMI -was empirically started on CTX for UTI (she is having dysuria but UA is bland) -pt febrile today -send BCx -ECHO -psych evaluated and signed off Current Facility-Administered Medications Medication Dose Route Frequency NaCl 0.9% iv flush bag 20 mL INTRAVENOUS PRN cefTRIAXone iv piggyback 1 g in dextrose (iso-osmotic) 50 mL (ROCEPHIN) 1 g INTRAVENOUS q 24 H sodium chloride 0.9 % (flush) 2-10 mL (BD POSIFLUSH) 2-10 mL INTRAVENOUS DIRECTED PRN And perflutren lipid microspheres 1.1 mg/mL 1.3 mL injection (DEFINITY) 1.3 mL INTRAVENOUS DIRECTED PRN acetaminophen 650 mg tab(s) (TYLENOL) 650 mg ORAL q 6 H PRN dextromethorphan-guaiFENesin 1 tablet (MUCINEX DM) 1 tablet ORAL q 12 H Objective PHYSICAL EXAM: BP 111/69 Pulse 85 Temp (Src) 99.1 (Oral) Resp 16 Ht 5' 8 (1.73m) Wt 170 lb 10.2 oz (77.4kg) SpO2 97% BMI 25.95 kg/(m2). O2 Therapy: Nasal Cannula, Liters: 2.00 Physical Exam Performed GENERAL: alert, no distress, cooperative SKIN: Skin color, texture, turgor normal. No rashes or lesions. NECK: no jugulovenous distention, supple BACK: Back symmetric, Normal curvature, ROM normal, No CVAT. LUNGS: Lungs clear to auscultation. Good diaphragmatic excursion. CARDIAC: RRR; no rubs, murmurs, or gallops ABDOMEN: Abdomen soft, non-tender. BS normal. No masses or organomegaly. EXTREMITIES: Extremities normal. No deformities, edema, clubbing or skin discoloration., No ulcers NEURO: Sensation grossly intact., Cranial nerves II-XII intact Lines, Drains, and Airways Line Duration Peripheral 06/16/23 0837 [facility] Short Right Arm 20 Gauge 1 day Reviewed lines and needs to be continued: REASONS: Intravenous fluids DATA: Diagnostic tests reviewed for today's visit: Most recent labs Most recent imaging Assessment/Plan Problem List Drug overdose of undetermined intent, initial encounter (POA: Yes) Infective urethritis (POA: Status not on file) Unstable angina pectoris (HCC) (POA: Status not on file) Acidosis (POA: Status not on file) Opioid use disorder (POA: Status not on file) HOSPITAL COURSE: 43 year old female with hx of drug/Heroin abuse presents with drug overdose. Pt was reportedly found naked in basement, breathing agonally, with white substance around her. She reportedly responded to narcan. Utox positive for cocaine only. She denies knowledge of any possible illicit substance and denies suicidal ideology or attempt. Drug overdose Minimally responsive and agonal breathing improved with narcan H/o heroin use Clinical depression Could be mixed with opiods. Improved with intranasal narcan. Currently back to baseline mentation. Denies use of illicit drug - states previously injected heroin but claims has not used in about a year -Psychiatry consult: signed off -HS trop, D-dimer, BNP, CRP, WBC all elevated -HS trop downtrending, EKG NSR no STEMI -psych evaluated and signed off Dysuria Fever -Leucocytosis 22k>16k -fever could be 2/2 drug use -Urine and blood culture pending -was empirically started on CTX for UTI (she is having dysuria but UA is bland) -ceftriaxone for now -check ECHO Gap metabolic acidosis Hypovolemia Clinical dehydration Less concerning for methyl/ethylene glycol overdose. Maintenance IVF Left sided non radiating chest pain Trop 69>81>61 Less concerning for pleuritic or pericardial condition But CXR does show bilateral nonspecific prominence of pulmonary vasculature. Monitor on telemetry -HS trop, D-dimer, BNP, CRP, WBC all elevated -HS trop downtrending, EKG NSR no STEMI -ECHO Fall CT head/face/ cervical spine is clear without fracture Fall precautions Difficult IV access Has 18G IV line Medication and Non-Pharmacologic VTE Prophylaxis/Anticoagulants VTE Prophylaxis: VTE prophylaxis appropriate Disposition: Home Plan of care discussed with Provider, RN, Patient Plan communicated to: Patient prefers to communicate with family. SIGNATURE: Amaya Vázquez PA-C PATIENT NAME: Lisa Chuadhry DATE (more content not included)...[facility] [id number] NoteHNO ID: [id number] Author: YULISSA MADISON RN Service: Care Management Author Type: Registered Nurse Type: Care Mgt Initial Assessment Filed: 06/17/2023 12:46 Note Text: CARE MANAGEMENT: ASSESSMENT AND DISCHARGE PLAN SERVICE DATE: June 17, 2023 SERVICE TIME: 12:30 PCP: Konrad Hampton DO Primary Contact: Extended Emergency Contact Information Primary Emergency Contact: Hakan Luis Mobile Relation: Mother Admission Status: Observation Insurance Provider: BLUE CARD PPO OOS Discharge Planning requested by: Per Department Practice Potential Transition Plans No Services Indicated Advance Directives Current Advance Directive: None Social Services Designee Attempted to Assist with AD Completion: Yes Action: Education Provided;Patient Unwilling Current Living Arrangements and Support Lives with: Family members Type of Residence: Private Residence (House) Does the patient have to climb stairs at home?: stairs within the home Support: Family members How do you manage to accomplish the following: Independent: Ambulation;Bathe/Shower;Dress;Meals/Meal Prep;Going to the bathroom;Medication Management;Transportation to appointments/community Current Services/Equipment Current Post-Acute Service(s): None Discharge Planning Patient Goal(s): Be able to go home, General wellness [place] of Choice Explained: [place] of [place] Given: No Reason Not Given: No placements necessary Are you interested in bedside delivery of your medications? No Discharge Planning Participant(s): Patient Patient/Family Comments: Return home with family Caregiver Assessment: Caregiver is ready, willing and able to meet the patient's needs as recommended by the inter-professional team: No Caregiver needed Transport at Discharge: Transportation Arrangements: Car Destination: Home Needs Prior to Discharge: Needs Prior to Discharge: None Post-Acute Discharge Plan: EMR reviewed. Met with pt at bedside, introduced self/CM role. Pt admitted for unresponsiveness from drug overdose. Pt given Narcan, admits to HX. of heroin abuse. Pt reports completed a court ordered one year IOP program at [facility] in 03/13. Pt denied current drug use, but was found in her basement with drug paraphernalia, pt received Narcan. Pt was + for Cocaine on tox screen. Pt states she successfully completed IOP program and refuses to return or other drug addiction resources. Pt reports recently lost her job, lives at home with family Indepdently, has transport home. Discussed case with FLORENCE Zamora. SIGNATURE: Yulissa Madison RN PATIENT NAME: Lisa Chaudhry DATE: June 17, 2023 TIME: 12:30 PM CONTACT #: [id number] NoteHNO ID: [id number] Author: YULISSA MADISON RN Service: Care Management Author Type: Registered Nurse Type: Care Mgt Initial Assessment Filed: 06/17/2023 12:46 Note Text: CARE MANAGEMENT: ASSESSMENT AND DISCHARGE PLAN SERVICE DATE: June 17, 2023 SERVICE TIME: 12:30 PCP: Konrad Hampton DO Primary Contact: Extended Emergency Contact Information Primary Emergency Contact: Hakan Luis Mobile Relation: Mother Admission Status: Observation Insurance Provider: [employer] PPO OOS Discharge Planning requested by: Per Department Practice Potential Transition Plans No Services Indicated Advance Directives Current Advance Directive: None Social Services Designee Attempted to Assist with AD Completion: Yes Action: Education Provided;Patient Unwilling Current Living Arrangements and Support Lives with: Family members Type of Residence: Private Residence (House) Does the patient have to climb stairs at home?: stairs within the home Support: Family members How do you manage to accomplish the following: Independent: Ambulation;Bathe/Shower;Dress;Meals/Meal Prep;Going to the bathroom;Medication Management;Transportation to appointments/community Current Services/Equipment Current Post-Acute Service(s): None Discharge Planning Patient Goal(s): Be able to go home, General wellness [place] of Choice Explained: [place] of Choice Given: No Reason Not Given: No placements necessary Are you interested in bedside delivery of your medications? No Discharge Planning Participant(s): Patient Patient/Family Comments: Return home with family Caregiver Assessment: Caregiver is ready, willing and able to meet the patient's needs as recommended by the inter-professional team: No Caregiver needed Transport at Discharge: Transportation Arrangements: Car Destination: Home Needs Prior to Discharge: Needs Prior to Discharge: None Post-Acute Discharge Plan: EMR reviewed. Met with pt at bedside, introduced self/CM role. Pt admitted for unresponsiveness from drug overdose. Pt given Narcan, admits to HX. of heroin abuse. Pt reports completed a court ordered one year IOP program at [facility] in 03/13. Pt denied current drug use, but was found in her basement with drug paraphernalia, pt received Narcan. Pt was + for Cocaine on tox screen. Pt states she successfully completed IOP program and refuses to return or other drug addiction resources. Pt reports recently lost her job, lives at home with family Indepdently, has transport home. Discussed case with Odalis Bergman [facility]. SIGNATURE: Yulissa Madison RN PATIENT NAME: Lisa Chaudhry DATE: June 17, 2023 TIME: 12:30 PM CONTACT #: [id number] History of Present illness Narrative* Shante Worley MD - 12/12/2022 8:45 AM EDT Lisa Chaudhry 03/26[birth year]23 Date Of : 1980 HPI: Lisa Chaudhry is a 42 y.o. female The patient was seen today. She is here regarding fu ulsd for abnormal bleeding on pop.. ho leep repeat pap wnl 11/10. Ulsd ho hydrosalpinx left. . Back on megace stopped bleeding. +bv on cx. Yeast tried monistat will try pill. Ho migraine with aura. Depo worked ok in past. discussed drospireinone. Needs prevention. Review Of Systems: Constitutional: No fever, chills or malaise; No weight change or fatigue Physical Exam: There were no vitals taken for this visit. General: Alert, NAD Respirations: Normal respiratory effort Patient was identified and seen today via Telehealth by agreement and consent. I used the followingTelehealth technology: Audio capability only. Total length of call 10 minutes. The patient was offered and advised video for a more comprehensive evaluation, but the patient declined or was unable touse video. Patient location: Patient Location: Home. This patient encounter is appropriate and reasonable under the circumstances: transportation issues . The patient has been advised of the potential risks and limitations of this mode of treatment (including but not limited to the absence of in-person examination) and has agreed to be treated in a remote fashion in spite of them. Any and all o f the patient's/patient's family's questions on this issue have been answered and I have made no promises or guarantees to the patient. The patient has also been advised to contact this office for worsening conditions or problems, and seek emergency medical treatment and/or call 911 if the patient deems either necessary. The patient stated that they are currently in the [facility]. If the patient is a minor, permission has been obtained by the parent or guardian for the patient to receive medical care at this visit. [facility] reviewed with patient Assessment: Diagnosis Plan 1. Abnormal uterine bleeding 2. Cervical dysplasia PLAN: Follow up in about 6 months (around 06/14/2023) for fu pap. No orders of the defined types were placed in this encounter. Patient was seen with total face to face time of 10 minutes. More than 50% of this visit was counseling and education regarding The primary encounter diagnosis was Abnormal uterine bleeding. A diagnosis of Cervical dysplasia was also pertinent to this visit. and No chief complaint on file. as well as counseling on preventative health maintenance follow-up. documented in this [facility]08-20-2023 Note* Addendum Note - Shante Worley MD - 12/08/2022 9:24 AM EDTAddended by: SHANTE WORLEY on: 12/08/2022 09:24 AM Modules accepted: [id number] Telephone encounter Note* Telephone Encounter - Shante Worley MD - 12/08/2022 9:24 AM EDT Rx [facility] [id number] Miscellaneous Notes* Addendum Note - Shante Worley MD - 12/08/2022 9:24 AM EDTAddended by: SHANTE WORLEY on: 12/08/2022 09:24 AM Modules accepted: Orders * Telephone Encounter - Shante Worley MD - 12/08/2022 9:24 AM EDT Rx sent * Telephone Encounter - Raquel Kirkland LPN - 12/05/2022 10:43 AM EDT S: Patient spoke with [facility] nurse regarding Yeast infection from Flagyl B: Patient states she developed yeast after taking RX. C/O white discharge with itching. She has tried the 7 day monistat with no relief and is requesting Rx be sent to pharmacy listed A: Advised patient I would get message to provider R: Sent TE to provider for further assistance documented in this [facility]08-17-2023 Telephone encounter Note* Telephone Encounter - Raquel Kirkland LPN - 12/05/2022 10:43 AM EDT S: Patient spoke with [facility] nurse regarding Yeast infection from Flagyl B: Patient states she developed yeast after taking RX. C/O white discharge with itching. She has tried the 7 day monistat with no relief and is requesting Rx be sent to pharmacy listed A: Advised patient I would get message to provider R: Sent TE to provider for further assistance [facility] [id number] Miscellaneous Notes* Telephone Encounter - Raquel Kirkland LPN - 12/05/2022 10:43 AM EDT S: Patient spoke with [facility] nurse regarding Yeast infection from Flagyl B: Patient states she developed yeast after taking RX. C/O white discharge with itching. She has tried the 7 day monistat with no relief and is requesting Rx be sent to pharmacy listed A: Advised patient I would get message to provider R: Sent TE to provider for further assistance documented in this encounterSK[facility] MemorialVudsmw07-73-0972 Telephone encounter Note* Telephone Encounter - Shante Worley MD - 11/05/2022 7:49 AM EDT Please schedule patient a forge helper visit this week [facility] [id number] Miscellaneous Notes* Telephone Encounter - Shante Worley MD - 11/05/2022 7:49 AM EDT Please schedule patient a forge helper visit this week * Telephone Encounter - Sammy Gomez RN - 11/04/2022 11:16 AM EDT Reason for Disposition SEVERE post-op pain (e.g., excruciating, pain scale 8-10) that is not controlled with pain medications Caller has URGENT question and triager unable to answer question Protocols used: Post-Op Symptoms and [id number] S: Patient calls for complaint of vaginal bleeding post op B: patient states has had vaginal bleeding since sx/ was seen for same given medication and it stopped for a week then resumed. A: patient states bleeding daily since sx. Denies foul smells or pain or other symptoms R: patient advised that message will be forwarded to practice and they will contact her to discuss plan of care. Patient verbalizes understanding of same documented in this encounterSKettering Health Greene MemorialHupgze01-44-3647 Telephone encounter Note* Telephone Encounter - Sammy Gomez RN - 11/04/2022 11:16 AM EDT Reason for Disposition SEVERE post-op pain (e.g., excruciating, pain scale 8-10) that is not controlled with pain medications Caller has URGENT question and triager unable to answer question Protocols used: Post-Op Symptoms and Zvkwscgcj-[id number] S: Patient calls for complaint of vaginal bleeding post op B: patient states has had vaginal bleeding since sx/ was seen for same given medication and it stopped for a week then resumed. A: patient states bleeding daily since sx. Denies foul smells or pain or other symptoms R: patient advised that message will be forwarded to practice and they will contact her to discuss plan of care. Patient verbalizes understanding of same [facility] [id number] History of Present illness Narrative* Nieves Ron MD - 08/14/2022 9:45 AM EDT HPI: Patient for ER follow up. Recently with LEEP/D&C for abnormal cells on Pap smear. Had routine follow-up and was doing well on July 26. About 5 days ago she started bleeding and it just remained heavy. She went to the [facility] ER yesterday with a relatively benign work-up. Still bleeding today. Some pain with cramping. Of note she last used Depo about 1 year ago and was on it for a while and has not had cycles since then. REVIEW OF SYSTEMS: Gen: denies weight loss, fatigue, fevers/chills : see HPI PHYSICAL EXAM: Vitals: 08/14/22 1001 BP: (!) 127/93 Pulse: 93 PHYSICAL EXAM: Gen: normal appearance, NAD Neuro: AAOx3 Psych: normal affect Abd: soft, NT, ND, no masses palpated External genitalia: normal, no lesions, no skin discoloration, normal introitus Urethral meatus: normal, no diverticulum or irritation present Vagina: normal, no lesions Cervix: Positive clot and active bleeding from the os Lisa was seen today for vaginal bleeding. Diagnoses and all orders for this visit: Abnormal uterine bleeding (AUB) (Primary) - US pelvis; Future Adnexal cyst - US pelvis; Future Other orders - megestrol (Megace) 20 MG tablet; Take 1 tablet (20 mg total) by mouth 2 times daily for 10 days. PLAN: -Reviewed labs, notes and ultrasound from [facility] ER -Left-sided hydrosalpinx noted which is new compared to prior ultrasound at our office; will repeatin 6 weeks -Plan for Megace 20 mg twice daily for 10 days for acute bleeding -Discussed that this could be a normal cycle returning after prolonged Depo use -Pathology from recent surgery reviewed and benign -6 weeks for ultrasound and visit with Dr. Worley is her primary physician documented in this [facility]04-26-2023 History of Present illness Narrative* Nieves Ron MD - 08/14/2022 9:45 AM EDT HPI: Patient for ER follow up. Recently with LEEP/D&C for abnormal cells on Pap smear. Had routine follow-up and was doing well on July 26. About 5 days ago she started bleeding and it just remained heavy. She went to the [facility] ER yesterday with a relatively benign work-up. Still bleeding today. Some pain with cramping. Of note she last used Depo about 1 year ago and was on it for a while and has not had cycles since then. REVIEW OF SYSTEMS: Gen: denies weight loss, fatigue, fevers/chills : see HPI PHYSICAL EXAM: Vitals: 08/14/22 1001 BP: (!) 127/93 Pulse: 93 PHYSICAL EXAM: Gen: normal appearance, NAD Neuro: AAOx3 Psych: normal affect Abd: soft, NT, ND, no masses palpated External genitalia: normal, no lesions, no skin discoloration, normal introitus Urethral meatus: normal, no diverticulum or irritation present Vagina: normal, no lesions Cervix: Positive clot and active bleeding from the os Lisa was seen today for vaginal bleeding. Diagnoses and all orders for this visit: Abnormal uterine bleeding (AUB) (Primary) - US pelvis; Future Adnexal cyst - US pelvis; Future Other orders - megestrol (Megace) 20 MG tablet; Take 1 tablet (20 mg total) by mouth 2 times daily for 10 days. PLAN: -Reviewed labs, notes and ultrasound from [facility] ER -Left-sided hydrosalpinx noted which is new compared to prior ultrasound at our office; will repeatin 6 weeks -Plan for Megace 20 mg twice daily for 10 days for acute bleeding -Discussed that this could be a normal cycle returning after prolonged Depo use -Pathology from recent surgery reviewed and benign -6 weeks for ultrasound and visit with Dr. Worley is her primary physician documented in this [facility]04-26-2023 Miscellaneous Notes* Addendum Note - Vince Waddell MA - 08/14/2022 9:45 AM EDTAddended by: VINCE WADDELL on: 09/02/2022 09:45 AM Modules accepted: Orders documented in this [facility]04-26-2023 Note* Addendum Note - Vince Waddell MA - 08/14/2022 9:45 AM EDTAddended by: VINCE WADDELL on: 09/02/2022 09:45 AM Modules accepted: Orders [facility] [id number] Procedure [facility]04-07-2023 History of Present illness Narrative* Shante Worley MD - 07/26/2022 7:45 AM EDT Lisa Chaudhry 07/26/[birth year]22 Date Of : 1980 HPI: Lisa Chaudhry is a 42 y.o. female The patient was seen today. She is here regarding fu leep/d&c. She is doing well. Minimal pain/bleeding. No fever. No bowel or bladder issues . Ho atypical endometrial glands Ho hpv weston 3 Review Of Systems: Constitutional: No fever, chills or malaise; No weight change or fatigue Gastrointestinal ROS: No Indigestion, Heartburn, Nausea, vomiting, Diarrhea, Constipation,or Bowel Changes Genito-Urinary ROS: No Dysuria Psych ROS: No Depression, Homicidal thoughts,suicidal thoughts, or anxiety Physical Exam: Blood pressure 116/75, pulse 96, height 5' 8 (1.727 m), weight 165 lb (74.8 kg). General: Alert, NAD Respirations: Normal respiratory effort Abdomen: Soft non-tender; No guarding, rebound or rigidity. Extremities: No calf tenderness and No edema bilaterally Surg path reviewed with patient Assessment: Diagnosis Plan 1. Abnormal uterine bleeding (AUB) 2. Atypical endometrial cells on Pap smear 3. Severe dysplasia of cervix (WESTON III) 4. 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 Repeat pap next visit Will continue with pop No orders of the defined types were placed in this encounter. The primary encounter diagnosis was Abnormal uterine bleeding (AUB). Diagnoses of Atypical endometrial cells on Pap smear, Severe dysplasia of cervix (WESTON III), and HPV (human papilloma virus) infection were also pertinent to this visit. and Post-op Visit (2 weeks) as well as counseling on preventative health maintenance follow-up. documented in this [facility]03-22-2023 Miscellaneous Notes* Perioperative Nursing Note - Nita Todd RN - 07/10/2022 5:15 PM EDT Instructions given with verbalized understanding tolerated clear liquid and cracker well * Op Note - Shante Worley MD - 07/10/2022 3:45 PM EDT Pre-operative Diagnosis: abnormal uterine bleeding, cervical dysplasia, atypical endometrial cells Post-operative Diagnosis: Same Procedure: Hysteroscopy, D&C, leep Anesthesia: lma Surgeon: allison Estimated Blood Loss: minimal Complications: none Specimens: ecc, emc, cervical cone marked at 12 Findings: normal appearance of endometrium The patient was brought back to the operating room, placed in dorsal lithotomy position, prepped and draped in the normal sterile fashion. A weighted speculum was placed into the vagina. The cervix was grasped w/ a single tooth tenaculum ecc was obtained. The cervix was then progressively dilated to allow placement of a 5mm hysteroscope. Findings as noted above were documented. A sharp curettage was then carried out with a moderate amount of tissue being obtained. A coated bivalve speculum was placed. The cervix was injected with lidocaine. A leep was performed. Base of cone was treated with ball cautery. Monsels was applied. All instrumentation was removed from the vagina. [place], sponges and instruments were counted times two and noted to be correct. The patient tolerated the procedure weill. She was awakened from anesthesia and brought to the recovery room in stable condition. documented in this [facility]03-22-2023 Note* Perioperative Nursing Note - Nita Todd RN - 07/10/2022 5:15 PM EDT Instructions given with verbalized understanding tolerated clear liquid and cracker well [facility] [id number] Note* Perioperative Nursing Note - Nita Todd RN - 07/10/2022 5:15 PM EDT Instructions given with verbalized understanding tolerated clear liquid and cracker well [facility] [id number] Note* Op Note - Shante Worley MD - 07/10/2022 3:45 PM EDT Pre-operative Diagnosis: abnormal uterine bleeding, cervical dysplasia, atypical endometrial cells Post-operative Diagnosis: Same Procedure: Hysteroscopy, D&C, leep Anesthesia: lma Surgeon: allison Estimated Blood Loss: minimal Complications: none Specimens: ecc, emc, cervical cone marked at 12 Findings: normal appearance of endometrium The patient was brought back to the operating room, placed in dorsal lithotomy position, prepped and draped in the normal sterile fashion. A weighted speculum was placed into the vagina. The cervix was grasped w/ a single tooth tenaculum ecc was obtained. The cervix was then progressively dilated to allow placement of a 5mm hysteroscope. Findings as noted above were documented. A sharp curettage was then carried out with a moderate amount of tissue being obtained. A coated bivalve speculum was placed. The cervix was injected with lidocaine. A leep was performed. Base of cone was treated with ball cautery. Monsels was applied. All instrumentation was removed from the vagina. [place], sponges and instruments were counted times two and noted to be correct. The patient tolerated the procedure weill. She was awakened from anesthesia and brought to the recovery room in stable condition. [facility] [id number] Note* Op Note - Shante Worley MD - 07/10/2022 3:45 PM EDT Pre-operative Diagnosis: abnormal uterine bleeding, cervical dysplasia, atypical endometrial cells Post-operative Diagnosis: Same Procedure: Hysteroscopy, D&C, leep Anesthesia: lma Surgeon: allison Estimated Blood Loss: minimal Complications: none Specimens: ecc, emc, cervical cone marked at 12 Findings: normal appearance of endometrium The patient was brought back to the operating room, placed in dorsal lithotomy position, prepped and draped in the normal sterile fashion. A weighted speculum was placed into the vagina. The cervix was grasped w/ a single tooth tenaculum ecc was obtained. The cervix was then progressively dilated to allow placement of a 5mm hysteroscope. Findings as noted above were documented. A sharp curettage was then carried out with a moderate amount of tissue being obtained. A coated bivalve speculum was placed. The cervix was injected with lidocaine. A leep was performed. Base of cone was treated with ball cautery. Monsels was applied. All instrumentation was removed from the vagina. [place], sponges and instruments were counted times two and noted to be correct. The patient tolerated the procedure weill. She was awakened from anesthesia and brought to the recovery room in stable condition. [facility] [id number] Telephone encounter Note* Telephone Encounter - Antonieta Bernard - 07/02/2022 10:56 AM EDT Called insurance @ [phone] for utilization Management for the Provider Inquiry Department. Checking if outpatient CPT 99218 requires PA. Fax # S/w [place] to check. I was advised that CPT 22328 when done outpatient does not require PA. Call reference @ [id number]. [facility] [id number] Miscellaneous Notes* Telephone Encounter - Antonieta Bernard - 07/02/2022 10:56 AM EDT Called insurance @ [phone] for utilization Management for the Provider Inquiry Department. Checking if outpatient CPT 46967 requires PA. Fax # S/w [place]iqu[place] to check. I was advised that CPT 03514 when done outpatient does not require PA. Call reference @ [id number]. * Telephone Encounter - Antonieta Bernard - 06/28/2022 2:08 PM EST Patient seen in office today. Added hysteroscopy/D&C 53090 to surgery. Time and everything elsestays the same. Added to calendar and spoke with surgery scheduling to confirm. * Telephone Encounter - Antonieta Bernard - 06/10/2022 11:16 AM EST Please enter PAT orders: [facility] PAT: 07/04 @ 2:30PM Surgery:07/10 @ 3PM, CASE # [id number] Procedure: LEEP (06472) DX: N87.9 Anesthesia: GA Insurance: [employer], phone # [phone]. On hold over 30 minutes. Hung up. Tried to submitRightSignaturea tripJane portal due to it being an [facility] plan. No auth required. Uploaded to media. * Telephone Encounter - Antonieta Bernard - 06/10/2022 10:52 AM EST Biopsy complete 06/07, apt 06/28 to review. Called to schedule for July to secure a date and time for her. Office # left. Ok to put call through to Griffin for me to take. documented in this [facility]03-10-2023 Telephone encounter Note* Telephone Encounter - Antonieta Bernard - 06/28/2022 2:08 PM EST Patient seen in office today. Added hysteroscopy/D&C 26313 to surgery. Time and everything elsestays the same. Added to calendar and spoke with surgery scheduling to confirm. [facility] [id number] Miscellaneous Notes* Telephone Encounter - Antonieta Bernard - 06/28/2022 2:08 PM EST Patient seen in office today. Added hysteroscopy/D&C 48531 to surgery. Time and everything elsestays the same. Added to calendar and spoke with surgery scheduling to confirm. * Telephone Encounter - Antonieta Bernard - 06/10/2022 11:16 AM EST Please enter PAT orders: [facility] PAT: 07/04 @ 2:30PM Surgery:07/10 @ 3PM, CASE # [id number] Procedure: LEEP (84531) DX: N87.9 Anesthesia: GA Insurance: [employer], phone # [phone]. On hold over 30 minutes. Hung up. Tried to submitvia tripJane portal due to it being an [employer] plan. No auth required. Uploaded to media. * Telephone Encounter - Antonieta Bernard - 06/10/2022 10:52 AM EST Biopsy complete 06/07, apt 06/28 to review. Called to schedule for July to secure a date and time for her. Office # left. Ok to put call through to Griffin for me to take. documented in this [facility]03-10-2023 History of Present illness Narrative* Shante Worley MD - 06/28/2022 1:15 PM EST Lisa Chaudhry 06/30[birth year]22 Date Of : 1980 HPI: Lisa Chaudhry is a 42 y.o. female The patient was seen today. She is here regarding fu colp and emb for abnormal pap and abnormal bleeding. Ho Atypical endometrial glands +hpv Smoker Ho Migraines Desires control Review Of Systems: Constitutional: No fever, chills or malaise; No weight change or fatigue Gastrointestinal ROS: No Indigestion, Heartburn, Nausea, vomiting, Diarrhea, Constipation,or Bowel Changes Genito-Urinary ROS: No Dysuria Psych ROS: No Depression, Homicidal thoughts,suicidal thoughts, or anxiety Physical Exam: Blood pressure 118/73, pulse 92, height 5' 8 (1.727 m), weight 168 lb (76.2 kg), last menstrual period 06/21/2022. General: Alert, NAD Respirations: Normal respiratory effort Abdomen: Soft non-tender; No guarding, rebound or rigidity. Extremities: No calf tenderness and No edema bilaterally Surg path reviewed with patient Hcg neg Assessment: Diagnosis Plan 1. Abnormal uterine bleeding (AUB) POCT , urine manually resulted 2. Atypical endometrial cells on Pap smear 3. Severe dysplasia of cervix (WESTON III) PLAN: Follow up for as scheduled postop. Pt was counseled on options and she wants to proceed with hysteroscopy dilation and curettage and leep. She understands the risks of infection, bleeding, blood clots, damage to internal organs and risk with anesthesia. She was counseled on pre and post op care. All questions answered. Rx for pop sent Orders Placed This Encounter Procedures POCT , urine manually resulted The primary encounter diagnosis was Abnormal uterine bleeding (AUB). Diagnoses of Atypical endometrial cells on Pap smear and Severe dysplasia of cervix (WESTON III) were also pertinent to this visit. and Follow-up (results) as well as counseling on preventative health maintenance follow-up. documented in this [facility]02-21-2023 Telephone encounter Note* Telephone Encounter - Shante Worley MD - 06/11/2022 4:07 PM EST Rx [facility] to pharm [id number] Miscellaneous Notes* Telephone Encounter - Shante Worley MD - 06/11/2022 4:07 PM EST Rx sent to pharm * Telephone Encounter - Coty Whitaker - 06/11/2022 12:18 PM EST Name of caller: lisa Chaudhry Contact phone number: [phone] Relationship to Patient: patient Provider: Dr Worley Practice: [facility] Chief Complaint/Reason for Call: Patient called stating she saw a test result on MyChart stating she has a bacterial infection. She would like to know if an antibiotic is going to be sent for her. Please advise. Patient would like a call back. Thank you Best time of day caller can be reached: Any Patient advised that office/PCP has 24-48 business hours to return their call: Yes documented in this [facility]02-21-2023 Telephone encounter Note* Telephone Encounter - Coty Whitaker - 06/11/2022 12:18 PM EST Name of caller: lisa Chaudhry Contact phone number: [phone] Relationship to Patient: patient Provider: Dr Worley Practice: Chief Complaint/Reason for Call: Patient called stating she saw a test result on MyChart stating she has a bacterial infection. She would like to know if an antibiotic is going to be sent for her. Please advise. Patient would like a call back. Thank you Best time of day caller can be reached: Any Patient advised that office/PCP has 24-48 business hours to return their call: Yes [id number] Telephone encounter Note* Telephone Encounter - Antonieta Bernard - 06/10/2022 11:16 AM EST Please enter PAT orders: [facility] PAT: 07/04 @ 2:30PM Surgery:07/10 @ 3PM, CASE # [id number] Procedure: LEEP (67472) DX: N87.9 Anesthesia: [place] Insurance: [employer] Medicaid, phone # [phone]. On hold over 30 minutes. Hung up. Tried to submitvia availity portal due to it being an anthem plan. No auth required. Uploaded to media. [facility] [id number] Miscellaneous Notes* Telephone Encounter - Antonieta Bernard - 06/10/2022 11:16 AM EST Please enter PAT orders: [facility] PAT: 07/04 @ 2:30PM Surgery:07/10 @ 3PM, CASE # [id number] Procedure: LEEP (84888) DX: N87.9 Anesthesia: GA Insurance: [place], phone # [phone]. On hold over 30 minutes. Hung up. Tried to submitvia availity portal due to it being an anthem plan. No auth required. Uploaded to media. * Telephone Encounter - Antonieta Bernard - 06/10/2022 10:52 AM EST Biopsy complete 06/07, apt 06/28 to review. Called to schedule for July to secure a date and time for her. Office # left. Ok to put call through to Carlyn for me to take. documented in this [facility]02-20-2023 Telephone encounter Note* Telephone Encounter - Antonieta Bernard - 06/10/2022 10:52 AM EST Biopsy complete 06/07, apt 06/28 to review. Called to schedule for July to secure a date and time for her. Office # left. Ok to put call through to Carlyn for me to take. [facility] [id number] History of Present illness Narrative* Shante Worley MD - 06/07/2022 11:30 AM EST iLsa Chaudhry 06/07/2022 Date Of : 1980 HPI: Lisa Chaudhry is a 42 y.o. female The patient was seen today. She is here regarding colposcopy and emb due to atypical squamous and endometrial cells on pap. Also fu ulmi for abnormal bleeding. +spotting for last 2 wks. . Review Of Systems: Constitutional: No fever, chills or malaise; No weight change or fatigue Gastrointestinal ROS: No Indigestion, Heartburn, Nausea, vomiting, Diarrhea, Constipation,or Bowel Changes Genito-Urinary ROS: No Dysuria Psych ROS: No Depression, Homicidal thoughts,suicidal thoughts, or anxiety Physical Exam: Blood pressure 114/80, pulse 93, height 5' 8 (1.727 m), weight 172 lb (78 kg), last menstrual period 05/24/2022. Hcg neg General: Alert, NAD Respirations: Normal respiratory effort Abdomen: Soft non-tender; No guarding, rebound or rigidity. Extremities: No calf tenderness and No edema bilaterally Pelvic: External genitalia: normal general appearance, no lesions Vaginal: normal mucosa without lesions/discharge The colposcope was utilized on high and low magnification. A plain white light and green filter were also implemented after 3% of acetic acid was applied to the cervix. There was + Aceto White Epithelium 7:00 biopsy sent; ecc sent; no Mosaic Changes, Punctation, or Irregular Vessels seen. The patient was counseled on the procedure. Risks, benefits and alternatives were reviewed. The patient is aware that this is diagnostic and not curative and a second procedure may be needed. A consent was reviewed and obtained. The patient was positioned comfortably on the exam table. A sterile speculum was placed into the vagina and the cervix was identified. Anterior lip of cervix was grasped with single tooth tenaculum. Cervix was cleansed with betadine and an endometrial pipelle was then gently passed into the endometrial cavity. Tissue was obtained and sent to pathology. The patient tolerated the procedure well. Good hemostasis after procedure. Post procedure restrictions were reviewed and given to the patient. .All counts and instruments were correct at the end of the procedure. Assessment: Diagnosis Plan 1. Pre-procedural laboratory examinations POCT , urine manually resulted 2. Abnormal uterine bleeding (AUB) Sureswab(R) Advanced Vaginitis Plus, TMA ([facility]) Biopsy endometrium 3. Atypical endometrial cells on Pap smear Tissue exam Tissue exam Tissue exam Biopsy endometrium 4. 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 Orders Placed This Encounter Procedures Biopsy endometrium Colposcopy Standing Status: Future Standing Expiration Date: 06/07/2023 Sureswab(R) Advanced Vaginitis Plus, TMA ([facility]) POCT , urine manually resulted The primary encounter diagnosis was Pre-procedural laboratory examinations. Diagnoses of Abnormal uterine bleeding (AUB), Atypical endometrial cells on Pap smear, and ASCUS with positive high risk HPV cervical were also pertinent to this visit. and Procedure (EMB and colp) as well as counseling on preventative health maintenance follow-up. documented in this [facility]01-16-2023 History of Present illness Narrative* Kerri Soto - 05/06/2022 8:30 AM EST us documented in this [facility]01-11-2023 Telephone encounter Note* Telephone Encounter - Antonieta Bernard - 05/01/2022 2:58 PM EST S/w Dr. Worley. Labs came back abnormal. Colposcopy and EMB needed due to abnormalities to further characterize prior to surgery. Will need a SOAPING MACHINE BACK TENDER US then review with procedures with Dr. Worley after in office. Called and s/w the patient to schedule US then follow up apt to review and do the EMB and colposcopy. [facility] [id number] Miscellaneous Notes* Telephone Encounter - Antonieta Bernard - 05/01/2022 2:58 PM EST S/w Dr. Worley. Labs came back abnormal. Colposcopy and EMB needed due to abnormalities to further characterize prior to surgery. Will need a SOAPING MACHINE BACK TENDER US then review with procedures with Dr. Worley after in office. Called and s/w the patient to schedule US then follow up apt to review and do the EMB and colposcopy. * Telephone Encounter - Antonieta Bernard - 04/30/2022 2:49 PM EST Pap results in system. Please review results for patient and advise if ok to proceed with LEEP surgery scheduling. * Telephone Encounter - Antonieta Bernard - 04/24/2022 3:51 PM EST Consent signed. I have the surgery slip. Ready to schedule once colpo results come back. documented in this [facility]01-10-2023 Telephone encounter Note* Telephone Encounter - Antonieta Bernard - 04/30/2022 2:49 PM EST Pap results in system. Please review results for patient and advise if ok to proceed with LEEP surgery scheduling. [facility] [id number] Miscellaneous Notes* Telephone Encounter - Antonieta Bernard - 04/30/2022 2:49 PM EST Pap results in system. Please review results for patient and advise if ok to proceed with LEEP surgery scheduling. * Telephone Encounter - Antonieta Bernard - 04/24/2022 3:51 PM EST Consent signed. I have the surgery slip. Ready to schedule once colpo results come back. documented in this [facility]01-04-2023 Telephone encounter Note* Telephone Encounter - Antonieta Bernard - 04/24/2022 3:51 PM EST Consent signed. I have the surgery slip. Ready to schedule once colpo results come back. [facility] [id number] Miscellaneous Notes* Telephone Encounter - Antonieta Bernard - 04/24/2022 3:51 PM EST Consent signed. I have the surgery slip. Ready to schedule once colpo results come back. documented in this [facility]01-03-2023 History of Present illness Narrative* Shante Worley MD - 04/23/2022 11:45 AM EST Lisa Chaudhry 04/23/2022 Date Of : 1980 HPI: Lisa Chaudhry is a 42 y.o. female The patient was seen today. She is here regarding needs to reschedule leep due to procedure cancelled. Ascus +hpv 06/12 [place] biopsy [place] 2-3 6:00 08/10 Also no menses last 3-4 month; neg hcg at home. Mg ordered denies breast issue Review Of Systems: Constitutional: No fever, chills or malaise Gastrointestinal ROS: No Indigestion, Heartburn, Nausea, vomiting, Diarrhea, Constipation,or Bowel ChangesGenito-Urinary ROS: No Dysuria Psych ROS: No Depression, Homicidal thoughts,suicidal thoughts, or anxiety Physical Exam: Blood pressure 121/78, pulse 105, height 5' 8 (1.727 m), weight 179 lb (81.2 kg). General: Alert, NAD Respirations: Normal respiratory effort Abdomen: Soft non-tender; No guarding, rebound or rigidity. Extremities: No calf tenderness and No edema bilaterally Pelvic: External genitalia: normal general appearance, no lesions Vaginal: normal mucosa without lesions/discharge Cervix: normal appearance, no cmt Adnexa: nontender, no pelvic masses Uterus: small, nontender Assessment: Diagnosis Plan 1. Abnormal uterine bleeding TSH Follicle stimulating hormone hCG, quantitative, Prolactin TSH Follicle stimulating hormone hCG, quantitative, Prolactin 2. Severe dysplasia of cervix (WESTON III) Pap Smear 3. Screening for cervical cancer Pap Smear 4. Encounter for screening mammogram for malignant neoplasm of breast Bilateral screening mammogramwith tomosynthesis PLAN: Follow up for will call preop. Pt was counseled on options and she wants to proceed with leep. She understands the risks of infection, bleeding, blood clots, damage to internal organs and risk with anesthesia. She was counseled onpre and post op care. All questions answered. Orders Placed This Encounter Procedures Bilateral screening mammogram with tomosynthesis Standing Status: Future Standing Expiration Date: 06/22/2023 TSH Standing Status: Future Number of Occurrences: 1 Standing Expiration Date: 04/23/2023 Follicle stimulating hormone Standing Status: Future Number of Occurrences: 1 Standing Expiration Date: 04/23/2023 hCG, quantitative, Standing Status: Future Number of Occurrences: 1 Standing Expiration Date: 04/23/2023 Prolactin Standing Status: Future Number of Occurrences: 1 Standing Expiration Date: 04/23/2023 The primary encounter diagnosis was Abnormal uterine bleeding. Diagnoses of Severe dysplasia of cervix (WESTON III), Screening for cervical cancer, and Encounter for screening mammogram for malignant neoplasm of breast were also pertinent to this visit. and Follow-up (Pap smear today no period 3-4 months and preg neg ) as well as counseling on preventative health maintenance follow-up. documented in this [facility]11-18-2021 Chief complaint Narrative - Reported* An interactive audio and video telecommunication system which permits real time communications between the patient (at the originating site) and provider (at the distant site) was utilized to [facility] telehealth service. * Verbal consent was requested and obtained from LISA CHAUDHRY on this date, 03/08/2021 03:20 PM , for a telehealth visit. * hot and cold chills, nausea, temp got to 101.2, runny nose, body aches, headache for couple days. Had both covid shots. Needs a nebulizer machine script. Just found out was in contact with someone who tested positive for covid today. [facility] [employer] DO Work Phone: 1(996) 314-717611-16-2021 History of Present illness NarrativeThimarko is a 40yo female who presents today via virtual visit with chief complaint of nausea and vomiting. States that this episode started a few days ago with nausea, fever yesterday (Tmax 101.2), chills, runny nose, nasal congestion, myalgias, fatigue, CALVIN, dry cough, generalized abd pain. Has had multiple episodes of NBNB emesis starting this morning. She also notes dysuria, urinary frequency, urgency/hesitancy for the past couple days. Denies ear pain, SOB, CP, hematuria. Afebrile today. Patient notes recent exposure to a friend who tested + for COVID-19.[facility] [address] DO Work Phone: 1(731) 972-357408-22-2021 History of Present illness NarrativePatient is having some discomfort from just the opening of her right ear and feels like there is some fluid there. She is also had poison felipa on her face and been scratching them like crazy over the last week and a half another red. No systemic symptoms. No history of nausea, vomiting, fever or chills. She would like a note for work. She currently does not have a family doctor.[facility] Work Phone: 1(940) 863-726403-22-2021 NoteHNO ID: [id number] Author: Vince Ogden Service: ? Author Type: Physician Mill Operator Type: Progress Notes Filed: 07/10/2020 3:08 PM Note Text: Pt did not keep this scheduled appointment. [facility] note* Diagnosis Drug overdose, undetermined intent, initial encounter- Primary documented in this encounter [facility] Work Phone: Evaluation noteNo assessment information available [facility] Work Phone: Evaluation note* Diagnosis Abnormal uterine bleeding (AUB)- Primary Atypical endometrial cells on Pap smear Abnormal glandular Papanicolaou smear of cervix Severe dysplasia of cervix (WESTON III) Carcinoma in situ of cervix uteri Dysplasia of cervix uteri, unspecified [facility] this [facility]* Diagnosis Dysplasia of cervix uteri, unspecified [facility] this [facility]* Diagnosis Abnormal uterine bleeding (AUB)- Primary Atypical endometrial cells on Pap smear Abnormal glandular Papanicolaou smear of cervix Severe dysplasia of cervix (WESTON III) 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 documented [facility]* Diagnosis Abnormal uterine bleeding (AUB)- Primary Adnexal cyst documented [facility] encounter [facility]* Diagnosis Abnormal uterine bleeding (AUB)- Primary Adnexal cyst [facility]* Diagnosis Abnormal uterine bleeding- Primary Unspecified disorder of menstruation and other abnormal bleeding from female genital tract Cervical dysplasia Dysplasia of cervix, unspecified [facility]* Diagnosis Metabolic encephalopathy- Primary Lethargy Other malaise and fatigue Nausea and vomiting Nausea with vomiting Acute UTI Urinary tract infection, site not specified Hypertension, unspecified type Hypertensive urgency Urinary tract infection without hematuria Dehydration Elevated random blood glucose level Nausea and vomiting Nausea with vomiting [facility] Diagnosis Abnormal uterine bleeding- Primary Unspecified disorder of menstruation and other abnormal bleeding from female genital tract Severe dysplasia of cervix (WESTON III) Carcinoma in situ of cervix uteri Screening for cervical cancer Screening for malignant neoplasm of the cervix Encounter for screening mammogram for malignant neoplasm of breast [facility]* Diagnosis Encounter for screening mammogram for malignant neoplasm of breast [facility]* Diagnosis Abnormal uterine bleeding (AUB) documented [facility]* Diagnosis Pre-procedural laboratory examinations- Primary Pre-procedural laboratory examination Abnormal uterine bleeding (AUB) Atypical endometrial cells on Pap smear Abnormal glandular Papanicolaou smear of cervix ASCUS with positive high risk HPV cervical [facility]* Diagnosis Adjustment disorder, unspecified type- Primary documented in [facility] Work Phone: Evaluation note* Diagnosis Encounter for screening mammogram for malignant neoplasm of breast documented in this encounter [facility]* Diagnosis Encounter for screening mammogram for malignant neoplasm of breast- Primary Encounter for screening mammogram for malignant neoplasm of breast documented [facility] this encounter [facility]* Diagnosis Well woman exam with routine gynecological exam- Primary Routine gynecological examination Encounter for screening mammogram for malignant neoplasm of breast control counseling Vaginal discharge Leukorrhea, not specified as infective Screen for STD (sexually transmitted disease) Screening examination for venereal disease Screening for colon cancer Special screening for malignant neoplasms, colon Family history of malignant neoplasm of breast documented in this encounter [facility] Present illness NarrativeShe presents today to establish as a new patient. She has a history of asthma and allergies. She has not been seen by her primary care in 3 years. The medication she was on were effective. So we willrefill those. She is also has a history of IV drug use and hepatitis C. She states that they were monitoring her levels and she did not require treatment. She states that she has not used drugs and amonth. However she has multiple inflamed vessels on her arms and a prominent right radial area veinwith bruising and fresh pinpoint punctures. She states that recently she was on antibiotics for cellulitis of those vessels. She does see a psychiatrist at a treatment center and is prescribed medications there.-[facility] Work Phone: History of Present illness Narrative* Patient is a 41-year-old female with chief complaint of sore throat pain and ear pain for 1 week. Patient denies any known strep or mono exposure. Patient denies any history of chronic otitis media. Patient denies any chills, but has a fever. Patient denies any eye pain or eye discharge. Patient denies any coughs, wheezing, chest pain or shortness of breath. Patient states partial relief with [id number] medications. * Patient reports that she has had swelling in her bilateral feet for two weeks. Patient denies any trauma recent or remote. Patient reports no improvement despite the use of elevation and compression stockings. [facility] Work Phone: Hospital Discharge instructions* Instructions* Pamela Lopez PA-C - 08/12/2020 Patient is Medically Cleared. Return as needed. Go back to [facility] for further treatment. Follow up with PCP. Do not use substances other than those given to you by [facility]. documented in this [facility] Work Phone: Hospital Discharge instructions* Attachments The following attachments cannot be sent through Care Everywhere. * Hysteroscopy Discharge Instructions ([place]) * Loop Electrosurgical Excision Procedure Discharge Instructions ([place]) * General Anesthesia Discharge Instructions ([place]) documented in this [facility] Discharge instructions* Attachments The following attachments cannot be sent through Care Everywhere. * Adjustment Disorder ([place]i) * Tips on Positive Thinking ([place]) documented in this [facility] Work Phone: Reason for referral (narrative)No reason for referral information availableWOur [facility] Work Phone: Summary Purpose Family History No Family History Records FoundUnknown Family Member Name Dates Details Family history of hepatic ci rrhosis: Father(V18.59, Z83.79) Status:Active Family history of drug depen dence: Mother, Father, Sister(V17.0, Z81.3) Status:Active No Significant Family Histor y: Family History Status:Active Unknown Family Member Name Dates Details No Significant Family Histor y: Family History Status:Active Family history of drug depen dence: Mother, Father, Sister(V17.0, Z81.3) Status:Active Family history of hepatic ci rrhosis: Father(V18.59, Z83.79) Status:Active Unknown Family Member Name Dates Details No Significant Family Histor y: Family History Status:Active Family history of drug depen dence: Mother, Father, Sister(V17.0, Z81.3) Status:Active Family history of hepatic ci rrhosis: Father(V18.59, Z83.79) Status:Active Unknown Family Member Name Dates Details No Significant Family Histor y: Family History Status:Active Family history of drug depen dence: Mother, Father, Sister(V17.0, Z81.3) Status:Active Family history of hepatic ci rrhosis: Father(V18.59, Z83.79) Status:Active Unknown Family Member Name Dates Details No Significant Family Histor y: Family History Status:Active Family history of drug depen dence: Mother, Father, Sister(V17.0, Z81.3) Status:Active Family history of hepatic ci rrhosis: Father(V18.59, Z83.79) Status:Active Unknown Family Member Name Dates Details No Significant Family Histor y: Family History Status:Active Family history of drug depen dence: Mother, Father, Sister(V17.0, Z81.3) Status:Active Family history of hepatic ci rrhosis: Father(V18.59, Z83.79) Status:Active Unknown Family Member Name Dates Details Family history of drug depen dence: Mother, Father, Sister(V17.0, Z81.3) Status:Active No Significant Family Histor y: Family History Status:Active Family history of hepatic ci rrhosis: Father(V18.59, Z83.79) Status:Active Unknown Family Member Name Dates Details No Significant Family Histor y: Family History Status:Active Family history of drug depen dence: Mother, Father, Sister(V17.0, Z81.3) Status:Active Family history of hepatic ci rrhosis: Father(V18.59, Z83.79) Status:Active Relationship Condition Age at Onset Recorded Date/T kenny Unknown Family History?- Unknown July 21, 2013 11:00pm Family History?- Unknown July 21, 2013 11:00pm Family History?No pertinent history Unkno wn July 21, 2013 11:00pm Relationship Condition Age at Onset Recorded Date/T kenny Unknown Family History?- Unknown July 22, 2013 12:00am Family History?- Unknown July 22, 2013 12:00am Family History?No pertinent history Unkno wn July 22, 2013 12:00am Advance Directives No Advanced Directives Records FoundDocuments on File Type Date Recorded 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 Driller Expl 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 Advance Directives and Living Will Power of 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 Sewing 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 Operator Documents on File Type Date Recorded 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 Driller Expl anation ACP-Advance Directive ACP-Power of Button Sewing Machine Operator Advance Directive Response Recorded Date/ Time Advance Directives No July 21 11:31pm Living Will No July 21, 2013 11:31pm Power of Button Sewing Machine Operator No July 21 4 11:31pm Latest Code Status on File Code Status Date Activated Date Inactivated Comments Full Code 07/10/2022 1:28 PM 07/10/2022 7:19 PM Latest Code Status on File Code Status Date Activated Date Inactivated Comments Full Code 07/10/2022 1:28 PM 07/10/2022 7:19 PM Advance Directive Response Recorded Date/ Time Advance Directives No July 22 14 12:31am Living Will No July 22, 2013 12:31am Power of Button Sewing Machine Operator No July 22 4 12:31am Date Activated Date Inactivated Comments 07/10/2022 1:28 PM 07/10/2022 7:19 PM Documents on File Type Date Recorded 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 Driller Expl anation Advance Directives and Livin g Will 03/24/2024 3:12 PM Date Activated Date Inactivated Comments 03/24/2024 7:54 PM 03/27/2024 7:33 PM Advance Directive Response Recorded Date/ Time Advance Directives No July 22 12:31am Date Activated Date Inactivated Comments 07/10/2022 1:28 PM 07/10/2022 7:19 PM Discharge Instructions * Instructions* Nathan Jaramillo MD - 12/11/2018 Drink lots of fluids is your dehydrated from the diarrhea and coughing. Stop smoking immediately please... FOR MANY MANY REASONS... SMOKING CAN CAUSE BLOOD CLOTS IN WOMEN ON ANY TYPE OF HORMONAL CONTRACEPTION. SMOKING CAUSES ASTHMA AND COPD... SMOKING CAUSES CANCER FASTER IN PEOPLE WHO ORTIZ.... ETC ETC... YOU ARE WASTING MONEY ON BOTH CIGARETTES AND MANY MEDICATIONS THAT YOU HAVE TO TAKE IN ORDER TO SMOKE... ALL THE ASTHMA MEDICATIONS ARE REQUIRED LARGELY DUE TO THE SMOKING ITSELF. HENCE, ADD UP THE TOTAL COSTS TO YOUR LIFE, YOUR POCKETBOOK AND YOUR HEALTH... IT IS ENORMOUS... PLEASE TAKE THIS SERIOUSLY... STOP SMOKING ONE HOUR AT A TIME AND START NOW..12/11/18. YOU CAN DO THIS! * Attachments The following attachments cannot be sent through Care Everywhere. * Asthma Triggers: General Info ([place]i) * Asthma or COPD: Using a Metered-Dose Inhaler ([place]) * Video: Quitting Smoking: It May Take Many Tries ([place]) * Smoking: Stopping ([place]) * Smoking Cessation: Health Benefits: General Info ([place]i) documented in this encounter* Attachments The following attachments cannot be sent through Care Everywhere. * Serum Sickness ([place]) documented in this encounter Assessments Diagnosis Viral upper respiratory tract infection- Primary Acute upper respiratory infections of unspecified site Asthmatic bronchitis Body aches Generalized pain Cigarette nicotine dependence with nicotine-induced disorder Unspecified drug-induced mental disorder Diagnosis Encounter for screening mammogram for malignant neoplasm of breast Other screening mammogram Diagnosis Serum sickness due to drug, initial encounter- Primary Vaccine reaction, initial encounter Asthma without status asthmaticus or acute exacerbation Diagnosis Constipation, unspecified constipation type Chief Complaint Pt presents to establish new PCP; previous pt of Dr. Nicki Nguyen, [facility]; Asthmahot and cold chills, nausea, temp got to 101.2, runny nose, body aches, headache for couple days. Had both covid shots. Needs a nebulizer machine script. Just found out was in contact with someone who tested positive for covid today. Chief Complaint and Reason for Visit Chief Complaint ASTHMA Asthma Chief Complaint Admit Date wound June 23, 2024 10:0 8am wound June 23, 2024 6:32 pm Reason for Visit Admit Date History of D&C June 23, 2024 10:0 8am History of tonsillectomy June 23, 2024 10:08am Skin necrosis June 23, 2024 10:0 8am Tobacco abuse counseling June 23, 2024 10:08am ADD (attention deficit disorder) June 232024 10:08am Anxiety June 23, 2024 10:0 8am Asthma June 23, 2024 10:0 8am Depression June 23, 2024 10:0 8am Endometriosis June 23, 2024 10:0 8am IBS (irritable bowel syndrome) June 10:08am Nicotine dependence June 23, 2024 10:0 8am 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 June 23, 2024 10:08am Non-pressure chronic ulcer o f right lower leg with fat layer exposed June 23, 2024 10:08am Seizures June 23, 2024 10:0 8am Additional Source Comments INFORMATION SOURCE (unrecogn ized section and content) DATE CREATED AUTHOR 10/13/2017 [facility] DATE CREATED AUTHOR AUTHOR'S ORGANIZ ATION 10/15/2017 [facility] DATE CREATED AUTHOR AUTHOR'S ORGANIZ ATION 10/15/2017 [facility] DATE CREATED AUTHOR AUTHOR'S ORGANIZ ATION 12/22/2017 [facility] DATE CREATED AUTHOR AUTHOR'S ORGANIZ ATION 01/29/2019 [facility] DATE CREATED AUTHOR AUTHOR'S ORGANIZ ATION 06/29/2020 [facility] DATE CREATED AUTHOR AUTHOR'S ORGANIZ ATION 08/17/2020 [facility] DATE CREATED AUTHOR AUTHOR'S ORGANIZ ATION 06/07/2021 [facility] DATE CREATED AUTHOR AUTHOR'S ORGANIZ ATION 12/20/2021 [facility] DATE CREATED AUTHOR AUTHOR'S ORGANIZ ATION 06/23/2023 [facility] DATE CREATED AUTHOR AUTHOR'S ORGANIZ ATION 06/23/2023 [facility] DATE CREATED AUTHOR AUTHOR'S ORGANIZ ATION 09/03/2023 [facility] DATE CREATED AUTHOR AUTHOR'S ORGANIZ ATION 09/03/2023 [facility] DATE CREATED AUTHOR AUTHOR'S ORGANIZ ATION 03/06/2024 [facility] DATE CREATED AUTHOR AUTHOR'S ORGANIZ ATION 07/13/2024 [facility] DATE CREATED AUTHOR AUTHOR'S ORGANIZ ATION 09/07/2024 [facility] DATE CREATED AUTHOR AUTHOR'S ORGANIZ ATION 09/24/2024 [facility] Reason for Visit (unrecogniz ed section and content) Reason Comments Cough Nasal Congestion Generalized Body Aches Reason Comments Other vaccine reaction Reason Comments Drug Overdose patient to ED11 with potential overdose on unknown substance. patient sent from [facility], patient noted to have dilated pupils and sleepy. patient admits to using $50 worth of Heroin yesterday at 1200. patient denies using any substance since then. patient was found by [facility] staff to have multiple suboxone patches on her. patient stated that they gave them to her. patient admitted to this RN that they were in her wallet and she brought them with her. patient is alert to voice, remains drowsy. Reason Comments Follow-up results Reason Onset Date Comments Surgery Scheduling 06/10/2022 Specialty Diagnoses / Procedures Referred By Jose pineda Referred To Contact Diagnoses Dysplasia of cervix uteri, unspecified Dysplasia of cervix uteri, unspecified [N87.9] Procedures AL CONIZATION CERVIX W/WO D&C RPR ELTRD EXC AL HYSTEROSCOPY BX ENDOMETRIUM&/POLYPC W/WO D&C LEEP,HYSTEROSCOPY, DILATION AND CURETTAGE HYSTEROSCOPY BIOPSY ENDOMETRIUM AND OR POLYPECTOMY Shante Worley MD [address] [place] [place] [address] [facility] [address] [place] [address] Referral ID Status Reason Start Date Expiration Date Visits Re quested Visits Authorized [id number] 1 1 Reason Comments Post-op Visit 2 weeks Reason Comments Vaginal Bleeding Pt seen in ED 3 for vaginal bleeding, pt states they did an ultrasound at the EDPt states she has been bleeding very heavily since Friday with lots of clots and cramping Reason Onset Date Comments Post-op Problem 11/04/2022 Reason Comments Withdrawal Altered Mental Status Specialty Diagnoses / Procedures Referred By Jose t Referred To Contact Diagnoses Metabolic encephalopathy Lethargy Nausea and vomiting Acute UTI Hypertension, unspecified type Referral ID Status Reason Start Date Expiration Date Visits Re quested Visits Authorized [id number] 1 1 Reason Comments Follow-up Pap smear today no p eriod 3-4 months and preg neg Reason Onset Date Comments Surgery Scheduling 04/24/2022 Reason Comments Procedure EMB and colp Reason Onset Date Comments Results 06/11/2022 Test results Reason Comments Psychiatric Evaluation Pt denying HI and SI pt [facility] Reason Comments Annual Exam Annual exam Reason Onset Date Comments Colon Cancer Screening 08/27/2024 Care Teams (unrecognized sec tion and content) Team Status: Active Member Role Status Dates Dr. Nicki Nguyen MD Family Provider Active Konrad Hampton DO Primary Care Provider Active Team Status: Inactive Member Role Status Dates Konrad Hampton DO Primary Care Provi caitlyn, Attending Provider, Referring Provider Active Road Tester Relationship Specialty Start Date End Date Konrad Hampton DO [address] [place] [address] PCP - General Family Medicine 06/26/22 Road Tester Relationship Specialty Start Date End Date Konrad Hampton DO [address] [place] [address] PCP - General Family Medicine 06/26/22 Road Tester Relationship Specialty Start Date End Date Konrad Hampton DO [address] [place] [address] PCP - General Family Medicine 06/26/22 Team Status: Active Member Role Status Dates Konrad Hampton DO Primary Care Provi caitlyn, Referring Provider, Other Provider Active Dr. Scotty Don MD Attending Provider Active Team Status: Inactive Member Role Status Dates Konrad Hampton DO Primary Care Provider Active Dr. Sowmya Sauceda MD Attending Provider Active Road Tester Relationship Specialty Start Date End Date Konrad Hampton DO [address] [place] [address] PCP - General Family Medicine 06/26/22 Road Tester Relationship Specialty Start Date End Date Konrad Hampton DO [address] [place] [address] PCP - General Family Medicine 06/26/22 Road Tester Relationship Specialty Start Date End Date Konrad Hampton DO [address] [place] [address] PCP - General Family Medicine 06/26/22 Road Tester Relationship Specialty Start Date End Date Konrad Hampton DO [address] [place], [place] [id number] PCP - General Family Medicine 06/26/22 Road Tester Relationship Specialty Start Date End Date Konrad Hampton DO [address] [place], [place] [id number] PCP - General Family Medicine 06/26/22 Road Tester Relationship Specialty Start Date End Date Konrad Hampton DO [address] [place], [place] [address] PCP - General Family Medicine 06/26/22 Road Tester Relationship Specialty Start Date End Date No, Physician [facility] PCP - General 03/24/24 Road Tester Relationship Specialty Start Date End Date Leonardo Ashford MD [facility] [address] [place] [address] PCP - General 02/03/20 Road Tester Relationship Specialty Start Date End Date Leonardo Ashford MD [address] [place] [address] PCP - General 02/03/20 Road Tester Relationship Specialty Start Date End Date Leonardo Ashford MD [address] [place] [address] PCP - General 02/03/20 Road Tester Relationship Specialty Start Date End Date Leonardo Ashford MD [address] [place] [address] PCP - General 02/03/20 Road Tester Relationship Specialty Start Date End Date Leonardo Ashford MD [address] [place] [address] PCP - General 02/03/20 Road Tester Relationship Specialty Start Date End Date Leonardo Ashford MD [address] [facility] [address] [place] [address] PCP - General 02/03/20 Road Tester Relationship Specialty Start Date End Date Leonardo Ashford MD [address] [facility] [address] [place] [address] PCP - General 02/03/20 Road Tester Relationship Specialty Start Date End Date Leonardo Ashford MD [address] [facility] [address] [place] [address] PCP - General 02/03/20 Road Tester Relationship Specialty Start Date End Date Konrad Hampton DO [address] [place], [place] [id number] PCP - General Family Medicine 06/26/22 Road Tester Relationship Specialty Start Date End Date Nicki Nguyen MD [address] [place] [address], [address] [place] [address] PCP - Vinodhéctor O PCP 08/20/23 Konrad Hampton DO [address] [place] [address] [address] [place], [place] [address] PCP - General Family Medicine 12/23/23 Road Tester Relationship Specialty Start Date End Date Noni Pablo MD [address] [facility] [address] [place], [place] [address] PCP - General Family Medicine 05/27/24 Team Status: Active Member Role Status Jaya Pablo MD Primary Care Provider Active Team Status: Inactive Member Role Status Jaya Pablo MD Primary Care Provider Active St art: June 23, 2024 End: July 19, 2024 Noni Pablo MD Referring Provider Active Start : June 23, 2024 End: July 19, 2024 Dr. Mario Potts MD Attending Provider Active Start: June 23, 2024 End: July 19, 2024 Team Status: Active Member Role Status Dates Noni Pablo MD Primary Care Provider Active St art: June 23, 2024 Noni Pablo MD Referring Provider Active Start : June 23, 2024 Dr. Mario Potts MD Attending Provider Active Start: June 23, 2024 Dr. Mario Potts MD Other Provider Active Sta rt: June 23, 2024 Road Tester Relationship Specialty Start Date End Date Konrad Hampton DO [address] [place] [address] [address] [place], [place] [address] PCP - General Family Medicine 06/26/22 05/26/24 Noni Pablo MD [address] [place] [address] [address] [place], [place] [id number] PCP - General Family Medicine 05/27/24 Road Tester Relationship Specialty Start Date End Date Noni Pablo MD [address] [place] [address] [address] [place], [place] [address] PCP - General Family Medicine 05/27/24 Road Tester Relationship Specialty Start Date End Date Noni Pablo MD [address] [facility] [address] [place], [place] [id number] PCP - General Family Medicine 05/27/24 Road Tester Relationship Specialty Start Date End Date Noni Pablo MD [address] [place] [address] [address] [place], [place] [id number] PCP - General Family Medicine 05/27/24 Goals (unrecognized section and content) Goals may be documented in a n alternate sectionGoals may be documented in an alternate sectionGoals may be documented in an alternate section Scheduled Active and Recently Administ ered Medications (unrecognized section and content) Medication Order 07/08/2022 07/09/2022 07/10/2022 acetaminophen (Tylenol) tablet 1,000 mg (COMPLETED) 1,000 mg, Oral, Once, On Fri07/10/22 at 1330, For 1 dose, Preprocedure, Maximum dose of acetaminophen is 4000 mg from all sources in 24 hours. Do not administer if patient has taken tylenol <4 hours earlier. Do not give if contraindicated ie. patient has active liver disease or cirrhosis. 1355 (Given - Provid er: Nita Norris RN) famotidine (Pepcid) tablet 20 mg (COMPLETED) 20 mg, Oral, Once, On Fri07/10/22 at 1330, For 1 dose, Preprocedure 1356 (Given - Provid er: Nita Norris RN) gabapentin (Neurontin) capsule 100 mg (COMPLETED) 100 mg, Oral, Once, On Fri07/10/22 at 1330, For 1 dose, Preprocedure, For Age >69 or Low GFR. 1356 (Given - Provid er: Nita Norris RN) Nozin Nasal Concrete Block Molder 62 % 1 ampule (COMPLETED) 1 ampule, Topical, Once, On Fri07/10/22 at 1330, For 1 dose, Preprocedure, Flip ampule around in paper sleeve to expose swab tip. Shake well. With sleeve on ampule, crush at dot to pop. Squeeze to wet swab tip. Swab around nostril rims 8 times in each direction. Squeeze to rewet swab tip and repeat. Repeat for other nostril. Caution : Do not extend in nose beyond swab tip. Appy to skin only. Discard after use. 1330 (Given - Provid er: Nita Norris RN) sodium chloride 0.9% (NS) flush 5-40 mL 5-40 mL, IntraVENous, Every 12 hours, First dose on Fri07/10/22 at 1330, Preprocedure, For Line Patency: Peripheral IV = 5 mL; Midline or Central Line = 10 mL/lumen. If following IV push medication, administer flush at same rate as the IV push. Flush volume is determined by type of infusion therapy being given. For non-viscous solutions use: Peripheral IV = 5 mL Midline or Central Line = 10 mL/lumen For viscous solutions (i.e. blood components, parenteral nutrition, contrast media, or after obtaining blood sample) use: Peripheral IV = 10 mL Midline or Central Line = 20 mL/lumen 1330 (Canceled Entry - Provider: Automatic Discharge Provider - Comment: Automatically canceled at discontinue of medication order) Continuous Medication Order 07/08/2022 07/09/2022 07/10/2022 lactated Ringer's infusion 50 mL/hr, IntraVENous, Continuous, Starting on Fri07/10/22 at 1330, Preprocedure, Upon admission to sameday - please start iv if patient does not have iv access. Use 500ml NS for patients on dialysis. 1424 (New Bag - Prov ider: Nita Norris RN)1545 (Continued by Anesthesia - Provider: LINSEY Rios CRNA)1545 (Paused - Provider: LINSEY Rios CRNA - Comment: Switch to gravity)1546 (New Bag - Provider: LINSEY Rios CRNA)1619 (New Bag - Provider: LINSEY Rios CRNA) PRN Medication Order 07/08/2022 07/09/2022 07/10/2022 ALPRAZolam (Xanax) disintegrating tablet 0.25 mg (COMPLETED) 0.25 mg, Oral, PRN, anxiety, Starting on Fri07/10/22 at 1328, For 1 dose, Preprocedure, Using dry hands, place tablet on top of tongue and allow to disintegrate. Administration with water is not necessary. 1356 (Given - Provid er: Nita Norris RN) ferric subsulfate (Monsel's) solution (CANCELED) As needed, Starting on Fri07/10/22 at 1603, Intraprocedure 1603 (Given - Provid er: Shante Worley MD) lidocaine-EPINEPHrine (Xylocaine W/EPI) 1 %-[id number] injection (CANCELED) As needed, Starting on Fri07/10/22 at 1603, Intraprocedure 1603 (Given - Provid er: Shante Worley MD - Comment: PARACERVICAL) oxyCODONE (Roxicodone) immediate release tablet 5 mg (COMPLETED) 5 mg, Oral, PRN, moderate pain (4-6), Starting on Fri07/10/22 at 1627, For 1 dose, Recovery (only), PHASE II 1641 (Self Administe red Via Pump - Provider: Nita Todd RN) sodium chloride 0.9 % infusion 5-250 mL/hr, IntraVENous, PRN, if patient receiving piggyback infusions and maintenance fluids are not ordered OR KVO fluids to protect IV site / prevent frequent line interruptions / long duration, Starting on Fri07/10/22 at 1328, Preprocedure, For piggyback infusion, administer at same rate as piggyback for a total of 25 mL. Enter 25 mL into dose field and piggyback rate into rate field of order. If piggyback is infusing at a rate less than 100 mL/hr, enter 25 mL into dose field and 100 mL/hr into rate field of order. For KVO fluids, enter rate of 20 mL/hr or less into rate field of order. sodium chloride 0.9 % irrigation solution (CANCELED) As needed, Starting on Fri07/10/22 at 1552, Intraprocedure 1552 (Given - Provid er: Shante Worley MD) sodium chloride 0.9% (NS) flush 5-40 mL 5-40 mL, IntraVENous, PRN, line care, After every IV line use, Starting on Fri07/10/22 at 1328, Preprocedure, For Line Patency: Peripheral IV = 5 mL; Midline or Central Line = 10 mL/lumen. If following IV push medication, administer flush at same rate as the IV push. Flush volume is determined by type of infusion therapy being given. For non-viscous solutions use: Peripheral IV = 5 mL Midline or Central Line = 10 mL/lumen For viscous solutions (i.e. blood components, parenteral nutrition, contrast media, or after obtaining blood sample) use: Peripheral IV = 10 mL Midline or Central Line = 20 mL/lumen sterile water irrigation solution (CANCELED) As needed, Starting on Fri07/10/22 at 1552, Intraprocedure 1552 (Given - Provid er: Shante Worley MD) Scheduled Medication Order 03/25/2024 03/26/2024 03/27/2024 cefTRIAXone (ROCEPHIN) 2000 mg in sodium chloride (NS) 0.9% 50 mL MBP 2,000 mg, Intravenous, at 100 mL/hr, Every 24 hours, First dose (after last modification) on Ellen 03/25/24 at 2000, Indication: UTI (mild to moderate) 2112 (New Bag - Provider: Nancy Sal RN - Comment: no IV site)2199 (Stopped - Provider: Nancy Sal RN) 2042 (New Bag - Provider: Angelica Hill RN)2134 (Stopped - Provider: Angelica Hill RN) cloNIDine HCL (CATAPRES) tablet 0.1 mg(Linked Group 1) 0.1 mg, Oral, Every 6 hours, First dose on Fri03/26/24 at 0330, For 8 doses, Always check vital signs prior to each clonidine dose and hold if SBP less than 90 mmHg or if patient is symptomatic (dizzy, lightheaded, etc). Max Dose per Day 0.8 MG in patient less than 91 KG. 0329 (Given - Provider: Nancy Sal RN)0917 (Given - Provider: Jason Hoskins RN)1639 (Given - Provider: Jason Hoskins RN)2044 (Given - Provider: Angelica Hill RN) 0330 (Not Given - Provider: Angelica Hill RN - Reason: Order parameters not met)0902 (Given - Provider: Jason Hoskins RN)1509 (Given - Provider: Jason Hoskins RN) cloNIDine HCL (CATAPRES) tablet 0.2 mg (COMPLETED)(Linked Group 1) 0.2 mg, Sublingual, Every 1 hour, First dose on Ellen 03/25/24 at 2030, For 1 dose, Always check vital signs prior to each clonidine dose and hold if SBP less than 90 mmHg or if patient is symptomatic (dizzy, lightheaded, etc). Max Dose per Day 0.8 MG in patient less than 91 KG. 2024 (Given - Provider: Nancy Sal RN) cloNIDine HCL (CATAPRES) tablet 0.2 mg (COMPLETED)(Linked Group 1) 0.2 mg, Sublingual, Every 6 hours, First dose on Ellen 03/25/24 at 2130, For 1 dose, HOLD if NO ACTIVE WITHDRAWAL SYMPTOMS (after first dose), pt SBP less than 90 or pt feels dizzy/ lightheaded. Always check vital signs prior to each clonidine dose Max Dose per Day 0.8 MG in patient less than 91 KG. 2121 (Given - Provider: Nancy Sal RN) enoxaparin (LOVENOX) syringe 40 mg 40 mg, Subcutaneous, Daily, First dose on Fri03/27/24 at 0900, Administer in abdomen unless otherwise directed by prescriber. Notify physician if patient refuses., Prophylaxis Indication: VTE Prophylaxis 900 (Given - Provider: Jason Hoskins RN) heparin (porcine) injection 5,000 Units (CANCELED) 5,000 Units, Subcutaneous, Every 8 hours scheduled, First dose on Ellen 03/25/24 at 0600, Notify physician if patient refuses. 0537 (Given - Provider: Tino Blakely RN)1335 (Given - Provider: Sowmya Tovar RN)2115 (Given - Provider: Nancy Sal RN) 0516 (Given - Provider: Nancy Sal RN)1425 (Given - Provider: Jason Hoskins RN)2239 (Given - Provider: Angelica Hill, DILLON) 0555 (Given - Provider: Angelica Hill, DILLON) hydrALAZINE (APRESOLINE) injection 5 mg (COMPLETED) 5 mg, Intravenous, Once, On Fri03/26/24 at 0100, For 1 dose 0018 (Given - Provider: Nancy Sal RN) lactulose (CHRONULAC) solution 20 g (CANCELED) 20 g, Oral, 3 times daily, First dose on Fri03/26/24 at 1500 1424 (Given - Provider: Jason Hoskins RN)2100 (Not Given - Provider: Angelica Hill RN - Reason: Patient/family refused) levETIRAcetam (KEPPRA) tablet 500 mg 500 mg, Oral, 2 times daily, First dose on Ellen 03/25/24 at 0900 0824 (Given - Provider: Amadeo Camacho)2024 (Given - Provider: Nancy Sal RN) 0917 (Given - Provider: Jason Hoskins, DILLON)2041 (Given - Provider: Angelica Hill RN) 0902 (Given - Provider: Jason Hoskins RN) magnesium citrate solution 296 mL (COMPLETED) 296 mL, Oral, Once, On Fri03/26/24 at 1430, For 1 dose 1424 (Given - Provider: Jason Hoskins RN) magnesium sulfate 1 g in dextrose (D5W) 100 mL IVPB (COMPLETED) 1 g, Intravenous, at 100 mL/hr, Once, On Ellen 03/25/24 at 0900, For 1 dose, Indication: Hypomagnesemia 0832 (New Bag - Provider: Sowmya Tovar RN)1000 (Stopped - Provider: Amadeo Camacho) metroNIDAZOLE (FLAGYL) IVPB 500 mg 500 mg, Intravenous, at 200 mL/hr, Every 8 hours, First dose on Ellen 03/25/24 at 1815, For 7 days, DO NOT REFRIGERATE, Indication: High Risk or Severity Community or Hosp Acquired Intra-abdominal Infections 1729 (New Bag - Provider: Sowmya Tovar RN)1818 (Stopped - Provider: Sowmya Tovar RN) 0124 (New Bag - Provider: Nancy Sal RN)0200 (Stopped - Provider: Nancy Sal RN)0927 (New Bag - Provider: Jason Hoskins RN)1046 (Stopped - Provider: Dyan Dhaliwal RN)1806 (New Bag - Provider: Jason Hoskins RN)1836 (Stopped - Provider: Jason Hoskins, DILLON) 0308 (New Bag - Provider: Angelica Hill RN)0338 (Stopped - Provider: Tino Blakely RN)1015 (Not Given - Provider: Jason Hoskins RN - Reason: Other - Comment: Per Dr. Wynn) nicotine (NICODERM CQ) 14 mg/24 hr 1 patch 1 patch, Transdermal, Administer over 24 Hours, Daily, First dose on Fri03/27/24 at 1345, U/P Listed Hazardous Drug. Waste Must Be Disposed in [employer] Waste Container 1253 (Patch Applied - Provider: Jason Hoskins, DILLON)1700 (Due: Patch Removed - Provider: Discharge Provider, Automatic - Comment: Time automatically adjusted from order being discontinued) pantoprazole (PROTONIX) Vial 40 mg 40 mg, Intravenous, 2 times daily, First dose on Ellen 12/5/24 at 0800, Dilute each vial with 10 mL of 0.9% NaCl. 0832 (Given - Provider: Sowmya Tovar RN)2114 (Given - Provider: Nancy Sal RN - Comment: No IV site) 09 (Given - Provider: Jason Hoskins, DILLON)2041 (Given - Provider: Angelica Hill, RN) 09 (Given - Provider: Jason Hoskins, DILLON) polyethylene glycol (MIRALAX) powder 17 g 17 g, Oral, 2 times daily, First dose on Fri03/26/24 at 1230, HOLD IF DIARRHEA OR LOOSE STOOLS 1230 (Given - Provider: Jason Hoskins RN)2100 (Not Given - Provider: Angelica Hill RN - Reason: Patient/family refused) 09 (Given - Provider: Jason Hoskins RN) potassium chloride (KAYCIEL) 20 mEq/15 mL solution 40 mEq (COMPLETED) 40 mEq, Oral, Once, On Fri03/25/24 at 0845, For 1 dose, Dilute with 4 oz. of water or juice., Ordering of this medication is restricted. Please select which of the following applies: Other, Enter reason for ordering: dysphagia 0823 (Given - Provider: Amadeo Camacho) potassium phosphate 30 mmol in dextrose (D5W) 5% 250 mL IVPB (COMPLETED) 30 mmol, Intravenous, Administer over 5 Hours, Once, On Fri03/26/24 at 1030, For 1 dose 1113 (New Bag - Provider: Jason Hoskins RN)1600 (Stopped - Provider: Jason Hoskins RN) potassium, sodium phosphates (PHOS-NAK) 280-160-250 mg packet 1 packet 1 packet, Oral, 4 times daily with meals and nightly, First dose on Fri03/27/24 at 0830, For 2 days, mg dosing is based on phosphorus component. Each packet contains 250 mg elemental phosphorus. 0902 (Given - Provider: Jason Hoskins RN)1251 (Given - Provider: Jason Hoskins RN)1700 (Due) sodium chloride (PF) (NS) flush 5 mL(Linked Group 2) 5 mL, Intravenous, Every 8 hours scheduled, First dose on Fri03/24/24 at 2200, Saline lock 0600 (Canceled Entry - Provider: Tino Blakely RN)1343 (Given - Provider: Sowmya Tovar RN)2200 (Not Given - Provider: Nancy Sal RN - Reason: Other - Comment: IV Infusing) 0600 (Not Given - Provider: Nancy Sal RN - Reason: Other)1400 (Not Given - Provider: Jason Hoskins RN - Reason: Other)2200 (Canceled Entry - Provider: Angelica Hill RN) 0307 (Given - Provider: Angelica Hill RN)1400 (Not Given - Provider: Jason Hoskins RN - Reason: Other) valsartan (DIOVAN) tablet 160 mg 160 mg, Oral, 2 times daily, First dose (after last modification) on Fri03/26/24 at 0800, HOLD IF SBP <140 0917 (Given - Provider: Jason Hoskins RN)2042 (Given - Provider: Angelica Hill RN) 0902 (Given - Provider: Jason Hoskins RN) valsartan (DIOVAN) tablet 80 mg (CANCELED) 80 mg, Oral, Daily, First dose on Fri03/25/24 at 0900, HOLD IF SBP <140 0823 (Given - Provider: Amadeo Camacho) vancomycin (VANCOCIN) 1500 mg in sterile water 300 mL IVPB (Xellia) (COMPLETED) 1,500 mg, Intravenous, at 200 mL/hr, Once, On Fri03/25/24 at 2045, For 1 dose, DO NOT USE IN , Indication: Other: (specify), Indication: IV drug abuse/ r/o Endocarditis 2144 (New Bag - Provider: Nancy Sal RN)2340 (Stopped - Provider: Nancy Sal RN) Continuous Medication Order 03/25/2024 03/26/2024 03/27/2024 sodium chloride 0.9 % with KCl 20 mEq/L infusion () 125 mL/hr, Intravenous, Continuous, Starting on Fri03/26/24 at 1015, For 8 hours, Stop after 1 L 0926 (New Bag - Provider: Jason Hoskins RN)1839 (Stopped - Provider: Lurdes Mercado RN) sodium chloride 0.9 % with KCl 40 mEq/L infusion () 125 mL/hr, Intravenous, Continuous, Starting on Fri03/25/24 at 0845, For 8 hours, STOP AFTER 1 L 0832 (New Bag - Provider: Sowmya Tovar RN)1600 (Stopped - Provider: Sowmya Tovar RN) PRN Medication Order 03/25/2024 03/26/2024 03/27/2024 acetaminophen (TYLENOL) tablet 650 mg 650 mg, Oral, Every 6 hours PRN, mild pain, fever 100.4 F or greater, headaches, Starting on Fri03/25/24 at 0754 2023 (Given - Provider: Nancy Sal RN) ALPRAZolam (XANAX) tablet 0.25 mg 0.25 mg, Oral, 2 times daily PRN, anxiety, sleep, Starting on Fri03/25/24 at 0748 2240 (Given - Provider: Angelica Hill RN) aluminum-magnesium hydroxide-simethicone (MAALOX PLUS) 200-200-20 mg/5 mL suspension 30 mL 30 mL, Oral, Every 4 hours PRN, indigestion, Starting on Fri03/24/24 at 203 hydrOXYzine (ATARAX) tablet 25 mg 25 mg, Oral, Every 6 hours PRN, anxiety, Starting on Fri03/25/24 at 1940 iopamidoL (ISOVUE-370) 370 mg iodine /mL (76 %) injection 100 mL (COMPLETED) 100 mL, Intravenous, Once in imaging, contrast, Starting on Fri03/26/24 at 1018, For 1 dose 1019 (Contrast Administered - Provider: Blanca Butler, TECHNOLOGIST - Comment: [id number]) LORazepam (ATIVAN) injection 1 mg 1 mg, Intravenous, Every 4 hours PRN, agitation, seizures, Starting on Fri03/25/24 at 0747, VESICANT melatonin Tab 10 mg 10 mg, Oral, Nightly PRN, Sleep, Starting on Fri03/24/24 at 2034 2239 (Given - Provider: Angelica Hill RN) naloxone (NARCAN) injection 0.4 mg 0.4 mg, Intravenous, Every 4 hours PRN, opioid reversal, respiratory depression, Starting on Ellen 03/25/24 at 0754 ondansetron (ZOFRAN) injection 4 mg 4 mg, Intravenous, Every 6 hours PRN, nausea, vomiting, Starting on Fri03/24/24 at 2034 0832 (Given - Provider: Sowmya Tovar, RN)1335 (Given - Provider: Sowmya Tovar RN) 0421 (Given - Provider: Nancy Sal RN)0927 (Given - Provider: Jason Hoskins, DILLON)1746 (Not Given - Provider: Jason Hoskins RN - Reason: Other - Comment: medication returned)2043 (Given - Provider: Angelica Hill RN) 033 (Given - Provider: Angelica Hill RN) perflutren lipid microspheres (DEFINITY) 0.143 mg/mL solution 0-10 mL of mixture 0-10 mL of mixture, Intravenous, Once in imaging, contrast, IF suboptimal echo, Starting on Fri03/25/24 at 1647, For 48 hours, Prepare syringe by withdrawing 1.3 mL of perflutren (DEFINITY) from the 2ml vial. Further dilute the 1.3 mL of perflutren with Sodium Chloride (NS) 0.9% to total volume of 10 ml. Chart total ML OF MIXTURE given to patient. sodium chloride (PF) (NS) 0.9 % contrast line flush 10 mL(Linked Group 3) 10 mL, Intravenous, Once in imaging, contrast, Per varnish thinner (Radiology) for line patency check prior to contrast administration, Starting on Fri03/26/24 at 1018, For 1 dose sodium chloride (PF) (NS) 0.9 % contrast line flush 10 mL 10 mL, Intravenous, Once in imaging, contrast, Per varnish thinner (Radiology) for line patency check, Starting on Fri03/26/24 at 1018, For 1 dose sodium chloride (PF) (NS) 0.9 % contrast line flush 80 mL(Linked Group 3) 80 mL, Intravenous, Once in imaging, contrast, Per varnish thinner (Radiology), Starting on Fri03/26/24 at 1018, For 1 dose, 30 mL BEFORE contrast administration 50 mL AFTER contrast administration sodium chloride (PF) (NS) flush 5 mL(Linked Group 4) 5 mL, Intravenous, As needed, line care, Starting on Fri03/24/24 at 1529 sodium chloride (PF) (NS) flush 5 mL(Linked Group 2) 5 mL, Intravenous, As needed, line care, Starting on Fri03/24/24 at 2033 2043 (Given - Provider: Angelica Hill RN) sodium chloride 0.9% (NS)(Linked Group 4) 0-150 mL/hr, Intravenous, As needed, To flush line after IV infusions when no maintenance IV ordered or a compatibility issue. Infuse 20ml at the same rate as the secondary infusion, Starting on Fri03/24/24 at 1529, Run as Primary IV. NOT intended for KVO. sodium chloride 0.9% (NS)(Linked Group 2) 0-150 mL/hr, Intravenous, As needed, To flush line after IV infusions when no maintenance IV ordered or a compatibility issue. Infuse 20ml at the same rate as the secondary infusion, Starting on Fri03/24/24 at 2033, Run as Primary IV. NOT intended for KVO. Linked Groups Order Group 1: cloNIDine HCL (CATAPRES) tablet 0.2 mg (COMPLETED)Jump to med 0.2 mg, Sublingual, Every 1 hour, First dose on Fri03/25/24 at 2030, For 1 dose, Always check vital signs prior to each clonidine dose and hold if SBP less than 90 mmHg or if patient is symptomatic (dizzy, lightheaded, etc). Max Dose per Day 0.8 MG in patient less than 91 KG. Followed by cloNIDine HCL (CATAPRES) tablet 0.2 mg (COMPLETED)Jump to med 0.2 mg, Sublingual, Every 6 hours, First dose on Ellen 03/25/24 at 2130, For 1 dose, HOLD if NO ACTIVE WITHDRAWAL SYMPTOMS (after first dose), pt SBP less than 90 or pt feels dizzy/ lightheaded. Always check vital signs prior to each clonidine dose Max Dose per Day 0.8 MG in patient less than 91 KG. Followed by cloNIDine HCL (CATAPRES) tablet 0.1 mgJump to med 0.1 mg, Oral, Every 6 hours, First dose on Fri03/26/24 at 0330, For 8 doses, Always check vital signs prior to each clonidine dose and hold if SBP less than 90 mmHg or if patient is symptomatic (dizzy, lightheaded, etc). Max Dose per Day 0.8 MG in patient less than 91 KG. Group 2: Saline lock IV (CANCELED) Routine, Continuous, Starting on Fri03/24/24 at 2034, Until Specified And sodium chloride (PF) (NS) flush 5 mLJump to med 5 mL, Intravenous, As needed, line care, Starting on Fri03/24/24 at 2033 And sodium chloride (PF) (NS) flush 5 mLJump to med 5 mL, Intravenous, Every 8 hours scheduled, First dose on Fri03/24/24 at 2200, Saline lock And sodium chloride 0.9% (NS)Jump to med 0-150 mL/hr, Intravenous, As needed, To flush line after IV infusions when no maintenance IV ordered or a compatibility issue. Infuse 20ml at the same rate as the secondary infusion, Starting on Fri03/24/24 at 2033, Run as Primary IV. NOT intended for KVO. Group 3: sodium chloride (PF) (NS) 0.9 % contrast line flush 10 mLJump to med 10 mL, Intravenous, Once in imaging, contrast, Per varnish thinner (Radiology) for line patency check prior to contrast administration, Starting on Fri03/26/24 at 1018, For 1 dose And sodium chloride (PF) (NS) 0.9 % contrast line flush 80 mLJump to med 80 mL, Intravenous, Once in imaging, contrast, Per varnish thinner (Radiology), Starting on Fri03/26/24 at 1018, For 1 dose, 30 mL BEFORE contrast administration 50 mL AFTER contrast administration Group 4: Insert peripheral IV (COMPLETED) HERLINDA, Once, On Fri03/24/24 at 1530, For 1 occurrence And Saline lock IV (CANCELED) HERLINDA, Once, On Fri03/24/24 at 1530, For 1 occurrence And sodium chloride (PF) (NS) flush 5 mLJump to med 5 mL, Intravenous, As needed, line care, Starting on Fri03/24/24 at 1529 And sodium chloride 0.9% (NS)Jump to med 0-150 mL/hr, Intravenous, As needed, To flush line after IV infusions when no maintenance IV ordered or a compatibility issue. Infuse 20ml at the same rate as the secondary infusion, Starting on Fri03/24/24 at 1529, Run as Primary IV. NOT intended for KVO. FOR RECORDS PERTAINING TO PATIENTS WHO ARE OR HAVE BEEN ENROLLED IN A CHEMICAL DEPENDENCY/SUBSTANCEABUSE PROGRAM, SOME INFORMATION MAY BE OMITTED. This clinical summary was aggregated from multiple sources. Caution should be exercised in using it in the provision of clinical care. This summary normalizes information from multiple sources, and as a consequence, information in this document may materially change the coding, format and clinical context of patient data. In addition, data may be omitted in some cases. CLINICAL DECISIONS SHOULD BE BASED ON THE PRIMARY CLINICAL RECORDS. [facility]. provides no warranty or guarantee of the accuracy or completeness of information in this document.
--- NOTE | 2024-10-30 22:47 | HP.PCM.HOS_ITS ---
HPI - General General Date of Admission: 10/30/24 Date of Service: 10/30/24 Chief Complaint: Weakness and poor p.o. intake HPI Narrative ISAC VALDIVIA, is a 44 F who initially presented to [facility] ED on 10/30/2024 with weakness and poor p.o. intake. Medical history significant for IV opiate abuse, necrotic ulcerations of lower extremities, tobacco abuse and mood disorder. Patient was seen in the wound clinic care in June here for her lower extremity wounds by Dr. Potts with vascular surgery, see note for further details. In short, his suspicion was that these ulcers could be due to embolic phenomenon in the setting of endocarditis versus possible vasculitis. Wounds were swabbed for culture at that time and grew only rare staph epidermis. Unfortunately it appears the patient was lost to follow-up after that appointment and it does not appear an echo was ever done. On presentation to [facility] ED today patient was noted to be weak and dehydrated appearing. She reported using IV heroin until last Tuesday 10/24 when she stopped cold turkey. Since then she had significant withdrawal symptoms with nausea/vomiting and poor p.o. intake. She has been staying with a friend and noted that he has been helping her with daily activities for the past few days. However, she became so weak that she was brought to the ED for further evaluation. She was noted to be mildly hypotensive and in sinus tachycardia there but otherwise stable on room air. Labs there notable for WBC count 24 with neutrophil predominance, hemoglobin 18.2, sodium 149, chloride 107, CO2 21, creatinine 2.17 (baseline less than 1), BUN 136, glucose 124, protein 9.0, albumin 3.8, calcium 9.2, T. bili 0.3, AST 86, ALT 110, alk phos 95. Lactate was 2.7. CPK level was normal. UA showed 500 leukocyte esterase, positive nitrates, many bacteria. Tox screen was positive only for fentanyl. Given her degree of weakness and leukocytosis, further imaging was obtained. CT brain was unremarkable. CT chest abdomen and pelvis with IV contrast was negative for any acute pathology. Patient was given 30 cc/kg of IV fluids (approximately 2 L) and a dose of Rocephin. She was then transferred to [facility] for further management. I saw the patient at bedside on the floor shortly after arrival here. Patient was fatigued and weak appearing. She was alert and oriented x 3 but had some tangential speech noted. She denied any acute pain or discomfort currently. She did have some appetite and had eaten some crackers and drink some coke since arrival here. She denied any fevers or chills. On exam she had significant track campo noted in both legs but no infectious appearing lower extremity wounds noted. No murmur noted on cardiac exam. No other acute concerns currently. [facility] Medical History Skin necrosis Non-pressure chronic ulcer of left lower leg with fat layer exposed Non-pressure chronic ulcer of right lower leg with fat layer exposed Tobacco abuse counseling Anxiety Substance abuse Depression Home Medications ?Medication ?Instructions ?Recorded ?Last Taken ?Type albuterol sulfate 90 mcg/actuation 1 puff inhalation Q 6H PRN PRN 02/27/13 Unknown History aerosol inhaler (Ventolin HFA) Wheezing buspirone 5 mg tablet 5 mg PO TID 06/23/24 Unknown History escitalopram oxalate 20 mg tablet 20 mg PO DAILY 06/23 Unknown History zolpidem 5 mg tablet 5 mg PO QHS 06/23/24 Unknown History Allergy/AdvReac Type Severity Reaction Status Date / Time latex Allergy Rash Verified 10/30/24 22:56 hydromorphone HCl (From AdvReac Itching Verified 10/30/24 22:56 Dilaudid) Surgical History History of D&C History of tonsillectomy Social History Smoking Status: Current every day smoker tobacco type: cigarettes ROS Constitutional Constitutional: Reports fatigue, malaise and weakness; Denies chills or fever(s) Eyes Eyes: Denies change in vision Cardiovascular Cardiovascular: Denies chest pain, dyspnea on exertion, edema, lightheadedness or palpitations Respiratory/Chest Respiratory/Chest: Denies shortness of breath at rest or wheezing Gastrointestinal Gastrointestinal: Reports nausea; Denies abdominal pain, constipation, diarrhea or vomiting Genitourinary Genitourinary: Reports dysuria Musculoskeletal Musculoskeletal: Denies arthralgias or myalgias Neurologic Neurologic: Denies dizziness, focal weakness or headache(s) Vital Signs Vital Signs Vital Signs: Weight Weight: 60.9 kg Body Mass Index (BMI) 20.4 Physical Exam Const alert, oriented x3 and no apparent distress Constitutional Narrative: Middle-aged female, appears older than stated age, fatigued and weak appearing, alert and oriented x 3 but with some tangential speech noted, otherwise sitting in bed fairly comfortably and in no acute distress. General Appearance: cooperative and comfortable HEENT normocephalic, head/scalp atraumatic, hearing grossly normal bilaterally, nasal mucous membranes and turbinates normal and moist oral mucous membranes Eyes PERRL, EOMs intact bilaterally and conjunctivae normal Neck full ROM Chest inspection of chest normal Resp normal respiratory effort, normal air movement, no use of accessory muscles and clear to auscultation bilaterally Cardio regular rate, regular rhythm, no murmurs and peripheral pulses 2+ throughout GI normal to inspection, nondistended, normoactive bowel sounds, soft to palpation, non-tender and non-distended Back/Spine normal ROM Extremity normal to inspection, full ROM and no pedal edema Skin Skin Narrative: Significant track campo noted on lower extremities throughout. Neuro Neuro Narrative: Generalized weakness noted. Psych Psych Narrative: Flat affect and cognitive slowing noted. Results Lab / Micro Data 10/30/24 23:45 10/30/24 23:45 Assessment & Plan Assessment/Plan (1) Sepsis: (2) UTI (urinary tract infection): (3) VAMSI (acute kidney injury): PLAN: Plan Patient is a 44-year-old female who presented to [facility] ED on 10/30/2024 as a transfer from [facility] for weakness and UTI with concern for sepsis. 1. Sepsis suspected secondary to UTI, concern for endocarditis ? Admit under inpatient status to PCU. Met sepsis criteria on admit with leukocytosis, elevated lactate, VAMSI, hypotension and suspected urinary source. UA with 500 leukocyte esterase, positive nitrates, many bacteria. CT chest abdomen pelvis at outside hospital was unremarkable, no concern for pyelonephritis. Have some concern for endocarditis given IV opiate abuse and lower extremity wounds as below. Given 30 cc/kg normal saline bolus at outside ED (~2L of fluids) with improvement in blood pressure. Echocardiogram ordered. Blood cultures and urine culture pending. Will treat with IV vancomycin and Zosyn for now. 2. VAMSI with severe azotemia in setting of dehydration ? Creatinine 1.87, BUN 108 on admit here. Notably creatinine 2.17 and BUN 130 at outside ED prior to IV fluid administration. CPK level normal. Presume prerenal etiology in setting of sepsis as above and dehydration from recent poor p.o. intake and nausea/vomiting from opioid withdrawal as below. Giving further IV fluids for hypernatremia as noted below. Monitor daily BMP and urine output. 3. Hypernatremia ? Sodium 153, chloride 118 on admit here. Notably sodium 149, chloride 107 at outside ED prior to receiving 2 L of IV normal saline. Presume secondary to dehydration plus normal saline administration. Will give D5W 1 L bolus now and then run D5W 100 cc/hr for another liter of fluids. Follow-up a.m. BMP. 4. Elevated LFTs ? AST 73, ALT 95 on admit. These are notably similar to LFTs at outside ED. CT abdomen pelvis showed no liver issues. Patient denies alcohol use. Acute hepatitis panel ordered. 5. IV opiate abuse with recent opiate withdrawal, chronic lower extremity wounds ? Case management consulted. Patient reports IV heroin use until last Tuesday 10/24 when she abruptly discontinued using. She reports going through significant withdrawal symptoms with nausea/vomiting and poor p.o. intake. Urine drug screen positive for only fentanyl. Patient denies withdrawal symptoms now and is outside the window for withdrawal. Notably patient has chronic lower extremity wounds with track campo. She saw Dr. Potts with vascular surgery for this in June, see HPI for further details. In short, he was concern for possible endocarditis leading to embolic phenomenon and causing these wounds. Echocardiogram was ordered then but never completed. Echo ordered now as above. Significant track campo noted on legs but no signs of active infection due to lower extremity wounds. 6. Tobacco abuse ? Reports smoking about 1 pack of cigarettes daily. Nicotine patch ordered per patient request. Discussed cessation on discharge. 7. Acute debility ? PT/OT/case management consulted. Patient with significant weakness noted. Suspect this is in part due to dehydration with poor p.o. intake recently but she does appear thin and somewhat debilitated at baseline as well. Appreciate therapy recommendations. 8. Mood disorder ? Continue home escitalopram, BuSpar and zolpidem at night as needed. 9. Asthma ? Stable on room air, not in acute aspiration. Continue home albuterol inhaler as needed. DVT prophylaxis: Heparin subcu CODE STATUS: Full code, verified Expected disposition: TBD Total clinical time spent by myself addressing the patient's medical issues, reviewing all the data, and collaborating with patient's care team: 75 minutes. Charges/Coding Visit Charges Inpatient E&M: 35379 Init Hosp L3
[2024-10-30] MEDS: 0.9% Saline Lock 10 ML Syringe IV (23:14)
--- OUTSIDE RECORDS SUMMARY | 2024-10-30 23:15 | XMS RPT_ITS | CCD ---
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 Scotty Don Attending Provider Konrad Hampton DO Primary Care Provider MITCHELL HANNON Attending Unavailable GIAN MACDONALD Referring Unava ilable RAIKAR, KIMBERLEE Admitting Unavailable ALAHMAD, JALAA Attending Unavailable TAYLOR, JAGPRIT S Attending Unavailable KONRAD HAMPTON Primary Care Unavailable No, Physician Primary Care Provider Unavailwander Ashford MD, Leonardo Primary Care Provider Nicki Nguyen MD Unavailable [phone] Konrad Hampton DO Primary Care Provider Noni [...] Care Provider ANGELES, CHALON Primary Care Unavailable MEIR, SHANTE Attending Unavailable ANGELES, CHALON Primary Care Unavailable MEIR, SHANTE Referring Unavailable MEIR, SHANTE Attending Unavailable Reodica, Mich Attending Unavailable Angeles, Chalon Primary Care Unavailable Angeles, Chalon Primary Care Unavailable Mario Potts Referring Unavailable Mario Potts Attending Unavailable Angeles, Chalon Primary Care Unavailable Mario Potts Attending Unavailable Angeles, Chalon Referring Unavailable Mario Potts Attending Unavailable Angeles, Chalon Referring Unavailable Angeles, Chalon Primary Care Unavailable Allergies Allergy Classification Reported Allergen(s) Allergy Type Date of Onset Reaction(s) Facility Bee pollen (1 source) Bee pollen Drug Allergy 8 [facility] Latex (1 source) Latex Substance Allergy 8 Rash [facility] Pollen (1 source) bee pollen Substance Allergy 8 [facility] (2 sources) HYDROmorphone; Translations: [HYDROMORPHONE (BULK)] Drug Allergy 3 [facility] Other [place] [facility] (2 sources) bee pollen Propensity to adverse reactions to drug 8 [place], [place] (4 sources) Latex; Translations: [LATEX] Propensity to adverse reactions to drug 8 Rash [place], [place] (20 sources) Codeine; Translations: [Codeine Derivatives] Drug Allergy 1 Other (See Comments), Unknown, GI Intolerance, Other [facility] and Work Phone: (3 sources) HYDROmorphone; Translations: [hydromorphone HCl] Drug Allergy 5 [facility] (20 sources) Bee pollen Propensity to adverse reactions 8 [facility] (20 sources) HYDROmorphone Drug Allergy 3 Unknown, Itching [facility] (20 sources) Latex Propensity to adverse reactions 8 Rash [facility] (20 sources) Pollen Propensity to adverse reactions 8 [facility] (2 sources) Codeine; Translations: [CODEINE] Drug Allergy 1 [facility] Repository Medications Current Medications Medication Drug Class(es) Dates Sig (Normalized) Sig (Original) [id number] actuat albuterol 0.09 mg/actuat metered dose [...] NEEDED. Quantity: 1 Refills: 1 Ordered: 30-Jan-2021 Regina TOWNSENDElizabeth Start : 03-Feb-2012 Active ALBUTEROL IN [...] 1 a day til pack is done 6 tablet 0 07/09/2018 Active benzonatate 100 mg oral capsule (1 source) Non-narcotic Antitussive Start: 12-11-2018 End: 12-18-2018 take 1 capsule by mouth three times daily as needed for cough benzonatate (TESSALON) 100 MG capsule Take 1 capsule by mouth 3 times daily as needed for Cough 20 capsule 0 12/11/2018 12/18/2018 Active 60 actuat budesonide 0.16 mg/actuat / formoterol fumarate 0.0045 mg/actuat metered dose inhaler (1 source) Corticosteroid, beta2-Adrenergic Agonist Start: 06-16-2020 take 2 puff(s) by inhalation twice daily SYMBICORT 160-4.5 MCG/ACT AERO Indications: Asthma without status asthmaticus or acute exacerbation Inhale 2 puffs into the lungs 2 times daily 1 Inhaler 1 06/16/2020 Active buprenorphine 8 mg / naloxone 2 mg sublingual film (7 sources) Partial Opioid Agonist, Opioid Antagonist Start: 11-27-2017 SUBOXONE 8-2 MG FILM SL film DISSOLVE ONE FILM UNT ONCE D UTD 0 11/27/2017 Active buprenorphine-na lOXone (SUBOXONE) 8-[address] 1 (one) each (1 Film total) under the tongue daily . Active busPIRone hydrochloride 5 mg oral tablet (6 sources) Start: 06-23-2024 take 1 tablet by mouth three times daily Buspirone 5 mg tablet Active 5 mg PO THREE TIMES A DAY June 23, 2024 1:00am take 1 tablet by mark th once daily at bedtime busPIRone (BUSPAR) 10 MG tablet Take 1 (one) tablet (10 mg total) by mouth every night at bedtime . Active Camphor-Methyl Salicyl-Menthol (Salonpas Patch) 1 EACH Adh..Patch (1 source) Start: 04-27-2014 Camphor-Methyl Salicyl-Menthol (Salonpas Patch) 1 EACH Adh..Patch Active 1 EACH TP TWICE A DAY April 27, 2014 11:20am cefdinir 300 mg oral capsule (3 sources) Cephalosporin Antibacterial Start: 03-27-2024 End: 03-30-2024 take 1 capsule by mouth twice daily cefdinir (OMNICEF) 300 MG capsule Take 1 (one) capsule (300 mg total) by mouth 2 (two) times a day for 3 days . 6 capsule 03/27/2024 03/30/2024 Active Start: 12-19-2021 take 1 capsule by mo [facility] once daily Cefdinir 300 MG Oral Capsule TAKE 1 CAPSULE EVERY 12 HOURS DAILY. Quantity: 20 Refills: 0 Ordered: 19-Dec-2021 Darrell Mcgowan DO Start : 19-Dec-2021 Active cephalexin 500 mg oral capsule (2 sources) Cephalosporin Antibacterial Start: 02-03-2019 End: 02-08-2019 take 1 capsule by mouth four times daily cephALEXin (KEFLEX) 500 MG capsule Take 1 capsule by mouth 4 times daily for 5 days 20 capsule 0 02/03/2019 02/08/2019 Active cloNIDine hydrochloride 0.1 mg oral tablet (7 sources) Central alpha-2 Adrenergic Agonist Start: 03-27-2024 End: 04-26-2024 cloNIDine (Catapres) 0.1 MG tablet 0.1 mg. 03/27/2024 Active Start: 03-26-2024 End: 03-27-2024 take 1 tablet by mouth every six hours 0.1 mg, Oral, Every 6 hours, First dose on Fri03/26/24 at 0330, For 8 doses, Always check vital signs prior to each clonidine dose and hold if SBP less than 90 mmHg or if patient is symptomatic (dizzy, lightheaded, etc). Max Dose per Day 0.8 MG in patient less than 91 KG. diclofenac sodium 50 mg delayed release oral tablet (5 sources) Nonsteroidal Anti-inflammatory Drug Start: 03-30-2018 take 1 tablet by mouth three times daily at mealtime diclofenac (VOLTAREN) 50 MG EC tablet Indications: Myalgia Take 1 tablet by mouth 3 times daily (with meals) 60 tablet 3 03/30/2018 Active Start: 07-22-2013 End: 07-24-2013 take 1 tablet by mouth twice daily Diclofenac Sodium 75 MG tablet Discontinued 75 mg PO TWICE A DAY July 22, 2013 12:00am July 24, 2013 12:59pm doxycycline hyclate 100 mg oral tablet (1 source) Tetracycline-class Drug Start: 06-29-2024 take 1 tablet by mouth twice daily Doxycycline Hyclate 100 mg tablet Active 100 mg PO TWICE A DAY June 29, 2024 12:00am escitalopram 20 mg oral tablet (7 sources) Serotonin Reuptake Inhibitor Start: 06-17-2024 take 1 tablet by mouth once daily escitalopram (Lexapro) 20 MG tablet Take 20 mg by mouth daily. 06/17/2024 Active Start: 01-31-2024 escitalopram o xalate (LEXAPRO) 5 MG tablet 01/31/2024 Active Start: 01-13-2015 take 1 tablet by mark th once daily Escitalopram Oxalate 10 MG Oral Tablet Take 1 tablet daily Quantity: 30 Refills: 2 Ordered: 24-Jun-2017 Nicki Nguyen MD Start : 13-Jan-2015 Active fluticasone propionate 0.05 mg/actuat metered dose nasal spray (20 sources) Corticosteroid Start: 06-21-2022 take 1 spray(s) nasal route twice daily fluticasone (Flonase) 50 MCG/ACT nasal spray Use 1 (ONE) spray IN EACH NOSTRIL TWICE DAILY DIRECTED 06/21/2022 Active Start: 02-03-2020 fluticasone (F LONASE) 50 MCG/ACT nasal spray Indications: Seasonal allergies 1 spray by Nasal route daily 3 Bottle 0 02/03/2020 Active Start: 01-11-2019 fluticasone (F LONASE) 50 MCG/ACT nasal spray Indications: Asthma without status asthmaticus or acute exacerbation 1 spray by Nasal route daily 3 Bottle 4 01/11/2019 Active Start: 11-26-2018 fluticasone (F LONASE) 50 MCG/ACT nasal spray Indications: Asthma without status asthmaticus or acute exacerbation 1 spray by Nasal route daily 1 Bottle 13 11/26/2018 Active Start: 06-08-2012 take 2 spray(s) nasa l route once daily Fluticasone Propionate 50 MCG/ACT Nasal Suspension USE 2 SPRAYS IN EACH NOSTRIL ONCE DAILY Quantity: 1 Refills: 2 Ordered: 30-Jan-2021 Elizabeth Whitlock Start : 08-Jun-2012 Active 60 actuat fluticasone propionate 0.232 mg/actuat / salmeterol xinafoate 0.014 mg/actuat dry powder inhaler (5 sources) Corticosteroid, beta2-Adrenergic Agonist Start: 11-26-2018 take 1 puff(s) by inhalation every twelve hours Fluticasone-Salmeterol 232-14 MCG/ACT AEPB Inhale 1 puff into the lungs every 12 hours 1 each 11 11/26/2018 Active Start: 02-27-2013 End: 06-23-2024 take 1 puff(s) by inhalation twice daily Fluticasone Propion-Salmeterol (Advair Diskus) 1 PUFF inhaler Discontinued 1 NMA INHALATION TWICE A DAY February 27, 2013 1:00am June 23, 2024 12:25pm Start: 02-27-2013 take 1 puff(s) by in halation twice daily Fluticasone Propion-Salmeterol (Advair Diskus) 1 PUFF inhaler Active 1 PUFF INHALATION TWICE A DAY February 27, 2013 1:00am Start: 02-27-2013 take 1 puff(s) by in halation twice daily Fluticasone Propion-Salmeterol (Advair Diskus) 1 PUFF inhaler Active 1 PUFF INHALATION TWICE A DAY February 27, 2013 12:00am 30 actuat fluticasone furoate 0.2 mg/actuat / vilanterol 0.025 mg/actuat dry powder inhaler (2 sources) Corticosteroid, beta2-Adrenergic Agonist Start: 07-09-2018 take 1 puff(s) by inhalation once daily Fluticasone Furoate-Vilanterol (BREO ELLIPTA) 200-25 MCG/INH AEPB 1 puff qd 1 each 9 07/09/2018 Active lamoTRIgine 25 mg oral tablet (8 sources) Mood Stabilizer, Anti-epileptic Agent Start: 07-07-2020 lamoTRIgine (LAMICTAL) 25 MG tablet TAKE 1 TABLET BY MOUTH FOR 2 WEEKS. THEN TAKE 2 TABS ONCE A DAY FOR 2 WEEKS. STOP FOR RASH 0 07/07/2020 Active take 1 tablet by mouth once bhargavi y LaMICtal 100 MG Oral Tablet TAKE 1 TABLET DAILY. Quantity: 0 Refills: 0 Ordered: 30-Jan-2021 DO Active linaclotide 0.145 mg oral capsule (13 sources) Guanylate Cyclase-C Agonist Start: 01-11-2019 take 1 capsule by mouth once daily before breakfast linaclotide (LINZESS) 145 MCG capsule Take 1 capsule by mouth every morning (before breakfast) 90 capsule 4 01/11/2019 Active take 1 capsule by mouth once martha ly Linzess 72 MCG capsule Take 72 mcg by mouth daily. Active medroxyPROGESTERone (5 sources) Progestin MedroxyPROGESTER one Acetate (DEPO-PROVERA IM) Inject into the muscle every 3 months 0 Active MedroxyPROGESTER one Acetate (DEPO-PROVERA IM) Inject into the muscle 0 Active megestrol acetate 20 mg oral tablet (7 sources) Progestin Start: 11-07-2022 End: 11-07-2023 take 1 tablet by mouth twice daily megestrol (Megace) 20 MG tablet Take 1 tablet (20 mg total) by mouth 2 times daily. 60 tablet 1 11/07/2022 11/07/2023 Active Start: 08-14-2022 End: 08-24-2022 take 1 tablet by mouth twice daily megestrol (Megace) 20 MG tablet Take 1 tablet (20 mg total) by mouth 2 times daily for 10 days. 20 tablet 0 08/14/2022 08/24/2022 melatonin 10 mg oral tablet (3 sources) Start: 03-27-2024 End: 04-26-2024 take 1 tablet by mouth once daily as needed melatonin 10 mg Tab Take 10 mg by mouth nightly as needed (insomnia) . 30 tablet 03/27/2024 04/26/2024 Active Start: 03-24-2024 End: 03-27-2024 take 10 mg by mouth once daily as needed for sleep 10 mg, Oral, Nightly PRN, Sleep, Starting on Fri03/24/24 at 2033 Multiple Vitamin (multivitamin) capsule (19 sources) take 1 capsule by mouth once daily Multiple Vitamin (multivitamin) capsule Take 1 capsule by mouth daily. Active take 1 capsule by mouth once martha ly Multiple Vitamin (multivitamin) capsule Take 1 capsule by mouth daily. 0 Active Multiple Vitamins-Minerals (MULTIVITAMIN ADULT PO) (5 sources) Multiple Vitamins-Minerals (MULTIVITAMIN ADULT PO) [...] D 3 11/18/2018 Active polyethylene glycol 3350 54708 mg powder for oral solution (4 sources) [...] hours, First dose (after last modification) on 03/25/24 at 2000, Indication: UTI (mild to moderate) cetirizine hydrochloride 10 mg oral tablet (20 sources) Histamine-1 Receptor Antagonist Start: 06-14-2015 End: 02-03-2019 take 1 tablet by mouth once daily Cetirizine HCl - 10 MG Oral Tablet TAKE ONE TABLET BY MOUTH ONE TIME DAILY Quantity: 30 Refills: 5 Ordered: 30-Jan-2021 Regina CARYElizabeth Start : 14-Jun-2015 Active Citalopram (1 source) [...] (2 sources) Azole Antifungal Start: 08-25-2024 End: 08-25-2024 take 1 tablet by mouth once fluconazole [...] PRN, anxiety, Starting on Fri03/25/24 at 1940 ibuprofen 800 mg oral tablet [...] sources) Start: 07-10-2022 End: 07-10-2022 Nozin Nasal Control Room Tender 62 % 1 ampule 1 ml ketorolac [...] 125 mL/hr, Intravenous, Cont inuous, Starting on Ellen 03/25/24 at 0845, For 8 hours, STOP AFTER [...] mL, Intravenous, Once in imaging, contrast, Per laundry tech (Radiology) for line patency check, Starting on [...] on Fri03/26/24 at 0800, HOLD IF SBP Start: 03-25-2024 End: 03-25-2024 take 80 mg by mouth once daily 80 mg, Oral, Daily, Fir st dose on Ellen 03/25/24 at 0900, HOLD IF SBP 300 ml vancomycin 5 mg/ml injection (1 source) Glycopeptide Antibacterial Start: 03-25-2024 End: 03-25-2024 take 1 dose intravenously once 1,500 mg, Intravenous, at 200 mL/hr, Once, On Fri03/25/24 at 2044, For 1 dose, DO NOT USE IN [...] eczema due to plants [except food]] Resolved: Episodic Complications of surgical procedures or medical [...] Test Name Value Interpretation Reference Range Facility 09-06-2024 36 1st attempt [employer] message sent 08/27/24 2nd attempt called patient Unable to leave message to call the screening program at [phone] - voicemail not set up Normal [facility] 08-27-2024 36 [email or web address] message sent to have patient call screening program if still interested in scheduling a screening colonoscopy. Normal [facility] 08-25-2024 36 Rx for bv and yeast sent Normal [facility] Sureswab(R) Advanced Vaginit is Plus, TMA (Quest)on 08-25-2024 C. glabrata RNA CHANDANA+probe Ql (Vag fld) Not detected NOT DETECTED [facility] Comment on above: Marialuisa species C. albicans, C. tropicalis, C. parapsilosis, and/or C. dubliniensis can be detected, but not differentiated, in the Marialuisa spp. result. C. trachomatis rRNA CHANDANA+probe Ql (Unsp spec) Not detected NOT DETECTED [facility] Marialuisa sp rRNA Probe Ql (Vag fld) Detected Abnormal NOT DETECTED [facility] Interpretation and review of laboratory results Abnormal [facility] Lactobacillus crispatus+gasseri+je nsenii + Gardnerella vaginalis + Atopobium vaginae rRNA CHANDANA+probe Ql (Vag fld) Positive Abnormal NEGATIVE [facility] N. gonorrhoeae rRNA CHANDANA+probe Ql (Unsp spec) Not detected NOT DETECTED [facility] Comment on above: For additional infor margaux, please refer to [email or web address] (This link is being provided for information/ educational purposes only.) T. vaginalis rRNA CHANDANA+probe Ql (Unsp spec) Not detected NOT DETECTED [facility] HCG ( test) Ql (U)o n 08-24-2024 Beta HCG ( test) Ql (U) . [facility] NE[facility]IVE QC [facility] POSITIVE QC Pass [facility] Preg Test, Ur Negative Negative [facility] Office Visiton 08-24-2024 Follow-up visit [id number] Mohan Chaudhry 1980 F Date Provider Department Center 08/24/2024 [id number] [facility] OB Offi Family History Problem Relation Age [...] Father Paternal Grandmother Neg Hx Level of Service:24011 [place] PERIODIC PREVENTIVE MED EST PATIENT 40-64YRS Reason for Visit and Comments: Annual Exam [83] - Annual exam Normal [facility] Progress Noteon 05-06-2025 Progress Note Practice Administrator was offere d to the patient for exam. Patient declined offer of fruit trimmer Normal [facility] Progress Note Lisa Chaudhry 08/24/2024 44 y.o. [...] Age of Onset Macular degeneration Mother Other (38[address]) Father blood infection; liver dis; septic-age 59 [...] Resource Strain: Low Risk (06/17/2023) Received from [facility] Overall Financial Resource Strain (CARDIA) Difficulty of Paying Living Expenses: Not very hard Food Insecurity: No Food Insecurity (03/24/2024) Received from [facility] Hunger Vital Sign Worried About Running Out of Food in the Last Year: Never true Ran Out of Food in the Last Year: Never true Transportation Needs: No Transportation Needs (03/24/2024) Received from [facility] PRAPARE - Transportation Lack of Transportation (Medical): No Lack of Transportation (Non-Medical): No Physical Activity: Not on file Stress: Not on file Social Connections: Not on file Intimate Partner Violence: Not At Risk (03/24/2024) Received from [facility] Humiliation, Afraid, Rape, and Kick questionnaire Fear of Current or Ex-Partner: No Emotionally Abused: No Physically Abused: No Sexually Abused: No Housing Stability: Low Risk (03/24/2024) Received from [facility] Housing Stability Vital Sign Unable to Pay [...] montelukast (Sing (more content not included)... Normal [facility] Culture, Anaerobic Any Sourc berkley 06-28-2024 CUAN right le medial No growth in 5 days. Normal [facility] Comment on above: Performed By: #### M 100.4001, M100.3000, M1.1999 #### [facility] Laboratory [address] [place], [address] CUAN right LE anterior No growth in 5 days. Normal [facility] Comment on above: Performed By: #### M 100.4001, M100.3000, M100.2000 #### [facility] Laboratory [address] [place], [address] Wound Ctr History AND Physic fortunato 06-27-2024 Wound Ctr History & Physical [facility] [address] [place] [address] H P Exam - Wound Care 06/27/24 1832 MR#: [id number] Acct: [id number] Name: LISA CHAUDHRY Rep #: [id number] : 1980 44 From: Mario Potts MD [...] she had been evaluated recently at the [facility] by Dr. Boni Lambert, a specialist in [...] smoking approximately 7 cigarettes/day. She also vapes. [facility] Medical History Skin necrosis Non-pressure chronic ulcer [...] Speech: normal (more content not included)... Normal [facility] Wound Cultureon 06-25-2024 WC right LE anterior [...] Vancomycin Islt MIGUEL ANGEL 2 S Normal [facility] Comment on above: Performed By: #### M 100.4001, M100.3000, M1.1999 #### [facility] Laboratory [address] [place], [address] WC right le medial Clinical correlation necessary, [...] MIGUEL ANGEL <=1 S TMP SMX Islt MIGUELA NGEL >=320 R Vancomycin Islt MIGUEL ANGEL 2 S Normal [facility] Comment on above: Performed By: #### M 100.4001, M100.3000, M1.1999 #### [facility] Laboratory [address], [address] Gram Stainon 06-24-2024 GS right le medial Gram Stain Rare Gram positive cocci No White Blood Cells No Epithelial cells Normal [facility] Comment on above: Performed By: #### M 100.4001, M100.3000, .1999 #### [facility] Laboratory [address] [place], [address] GS right LE anterior Gram Stain No White Blood Cells No Epithelial cells 1+ Gram positive cocci Normal [facility] Comment on above: Performed By: #### M 100.4001, M100.3000, M1.1999 #### [facility] Laboratory [address] [place], [address] Bacteria identified Anaer cx Nom (Unsp spec)Ordered By: Mario Potts on 06-23-2024 Anaerobic Culture No growth in 5 days. [facility] CBC W/Diff, Automatedon 03-0 Absolute Neut Normal 2.0-7.7 [facility] Comment on above: Result Comment: NOT DONE Performed By: #### L 100.0100, L500.4050 #### [facility] Laboratory [address] [place], [address] HCT Normal 37-47 [facility] Comment on above: Result Comment: NOT DONE Performed By: #### L 100.0100, L500.4050 #### [facility] Laboratory [address] [place], [address] HGB Normal 12.0-15.0 [facility] Comment on above: Result Comment: NOT DONE Performed By: #### L 100.0100, L500.4050 #### [facility] Laboratory [address] [place], [address] MCH Normal 27.0-32.0 [facility] Comment on above: Result Comment: NOT DONE Performed By: #### L 100.0100, L500.4050 #### [facility] Laboratory [address] [place], [address] MCHC Normal 32-36 [facility] Comment on above: Result Comment: NOT DONE Performed By: #### L 100.0100, L500.4050 #### [facility] Laboratory [address] [place], [address] MCV Normal 81-99 [facility] Comment on above: Result Comment: NOT DONE Performed By: #### L 100.0100, L500.4050 #### [facility] Laboratory [address] [place], [address] NEUT% Normal 47-70 [facility] Comment on above: Result Comment: NOT DONE Performed By: #### L 100.0100, L500.4050 #### [facility] Laboratory [address] [place], [address] PLT Normal 150-450 [facility] Comment on above: Result Comment: NOT DONE Performed By: #### L 100.0100, L500.4050 #### [facility] Laboratory [address] [place], [address] RBC Normal 4.2-5.4 [facility] Comment on above: Result Comment: NOT DONE Performed By: #### L 100.0100, L500.4050 #### [facility] Laboratory [address] [place], [address] RDW CV Normal 11.6-14.6 [facility] Comment on above: Result Comment: NOT DONE Performed By: #### L 100.0100, L500.4050 #### [facility] Laboratory [address] [place], [address] RDW SD Normal 35.1-43.9 [facility] Comment on above: Result Comment: NOT DONE Performed By: #### L 100.0100, L500.4050 #### [facility] [address] [place], [address] WBC Normal 4.4-11.0 [facility] Comment on above: Result Comment: NOT DONE Performed By: #### L 100.0100, L500.4050 #### [facility] Laboratory [address] [place], [address] Comprehensive Metabolic Prof ilon 06-23-2024 ALB Normal 3.5-5.0 [facility] Comment on above: Result Comment: NOT COLLECTED. Performed By: #### L 100.0100, L500.4050 #### [facility] Laboratory [address] [place], [address] ALK PHOS Normal 35-104 [facility] Comment on above: Result Comment: NOT COLLECTED. Performed By: #### L 100.0100, L500.4050 #### [facility] [address] [place], [address] ALT Normal <=34 [facility] Comment on above: Result Comment: NOT COLLECTED. Performed By: #### L 100.0100, L500.4050 #### [facility] Laboratory [address] [place], [address] AST Normal <=31 [facility] Comment on above: Result Comment: NOT COLLECTED. Performed By: #### L 100.0100, L500.4050 #### [facility] [facility] [address] [place], [address] BUN Normal 4-19 [facility] Comment on above: Result Comment: NOT COLLECTED. Performed By: #### L 100.0100, L500.4050 #### [facility] [address] [place], [address] BUN/CRE Normal 10-20 [facility] Comment on above: Result Comment: NOT COLLECTED. Performed By: #### L 100.0100, L500.4050 #### [facility] [address] [place], [address] Calcium Normal 7.6-11.0 [facility] Comment on above: Result Comment: NOT COLLECTED. Performed By: #### L 100.0100, L500.4050 #### [facility] [address] [place], [address] CL Normal 98-108 [facility] Comment on above: Result Comment: NOT COLLECTED. Performed By: #### L 100.0100, L500.4050 #### [facility] [address] [place], [address] CO2 Normal 21.0-32.0 [facility] Comment on above: Result Comment: NOT COLLECTED. Performed By: #### L 100.0100, L500.4050 #### [facility] [address] [place], [address] CREAT,SERUM Normal 0.70-1.20 [facility] Comment on above: Result Comment: NOT COLLECTED. Performed By: #### L 100.0100, L500.4050 #### [facility] [address] [place], [address] eGFR Normal >60 [facility] Comment on above: Result Comment: NOT COLLECTED. Performed By: #### L 100.0100, L500.4050 #### [facility] [address] [place], [address] GAP Normal 5-15 [facility] Comment on above: Result Comment: NOT COLLECTED. Performed By: #### L 100.0100, L500.4050 #### [facility] [address] [place], [address] GLU Normal 70-99 [facility] Comment on above: Result Comment: NOT COLLECTED. Performed By: #### L 100.0100, L500.4050 #### [facility] [address] [place], [address] Potassium Normal 3.3-5.1 [facility] Comment on above: Result Comment: NOT COLLECTED. Performed By: #### L 100.0100, L500.4050 #### [facility] [address] [place], [address] T BILI Normal 0.00-1.30 [facility] Comment on above: Result Comment: NOT COLLECTED. Performed By: #### L 100.0100, L500.4050 #### [facility] [address] [place], [address] T PROT Normal 5.9-8.4 [facility] Comment on above: Result Comment: NOT COLLECTED. Performed By: #### L 100.0100, L500.4050 #### [facility] [address] [place], [address] Comprehensive Metabolic Profil Normal 133-145 [facility] Comment on above: Result Comment: NOT COLLECTED. Performed By: #### L 100.0100, L500.4050 #### [facility] [address] [place], [address] Gram stainOrdered By: Mario Potts on 06-23-2024 Microscopic observation Gram stain Nom (Unsp spec) [facility] Routine wound cultureOrdered By: Mario Potts on 06-23-2024 Wound Culture Staphylococcus epidermidis Abnormal [facility] DBT Breast - bilateral scree ningon 06-02-2024 [...] MD Electronically Signed Date/Time: 06/02/2024 3:17 PM [facility] EMERGENCY [facility]PARTMENT RADIOLOGY SYSTEM Patient Name: LISA CHAUDHRY : 1980 [facility]#: [id number] Exam Date/Time: 06/02/2024 14:48 Procedure: BI MAMMOGRAM SCREENING TOMOSYNTHESIS BILATERAL Ordering Provider: WORLEY EILEEN Reason For Exam: This exam was performed at [address] [address] RISK ALERT: The Cancer Risk Assessment scores [...] images: BB's = Nipples; skin lesions Open [place] = Palpable Line = Scar COMPARISON: 05/02/2022 and 01/21/2019 TISSUE DENSITY: BIRADS B - There are scattered areas of fibroglandular density. FINDINGS: No suspicious masses, architectural distortions or suspiciously clustered microcalcifications are identified. There is no evidence of skin thickening or nipple retraction. There are no significant changes when compared with prior studies. [facility] RADIOLOGY SYSTEM Faith Deluca MD - 06/02/2024 Patient Name: LISA CHAUDHRY : 1980 [facility]#: [id number] Exam Date/Time: 06/02/2024 14:48 Procedure: BI MAMMOGRAM SCREENING TOMOSYNTHESIS BILATERAL Ordering Provider: WORLEY EILEEN Reason For Exam: This exam was performed at [address] [facility] [address] RISK ALERT: The Cancer Risk Assessment scores [...] images: BB's = Nipples; skin lesions Open [place] = Palpable Line = Scar COMPARISON: 05/02/2022 [...] of this examination. LIFETIME BREAST CANCER RISK: Idaniaer-Gage 8: 14% - If greater than or [...] Electronically Signed Date/Time: 06/02/2024 3:17 PM EST [facility] [employer] Radiology Study observation (narrative) [facility] [employer] DBT Breast - bilateral scree ningOrdered By: Faith Deluca on 06-02-2024 [facility] [employer] Work Phone: Bacteria identified Aer cx N om (Unsp spec)Ordered By: Karen Sandhu on 03-27-2024 Interpretation and review of laboratory results Abnormal [facility] CBCon 03-27-2024 Erythrocyte distribution width (RBC) [Ratio] 14.3 % Normal 11.5-14.5 [facility] Hematocrit (Bld) [Volume fraction] 44.4 % Normal 36.0-46.0 [facility] Hemoglobin (Bld) [Mass/Vol] 15.2 g/dL Normal 12.0-16.0 [facility] MCH (RBC) [Entitic mass] 30.4 pg Normal 28.0-32.0 [facility] MCV (RBC) [Entitic vol] 88.9 fL Normal 80.0-99.0 [facility] MEAN CORPUSCULAR HEMOGLOBIN CONC 34.2 g/dL Normal 33.0-37.0 [facility] Platelet mean volume (Bld) [Entitic vol] 8.9 fL Low 9.4-12.4 [facility] Platelets (Bld) [#/Vol] 297 10*3/uL Normal 120-400 [facility] RBC (Bld) [#/Vol] 4.99 10*6/uL Normal 4.00-5.20 [facility] WBC (Bld) [#/Vol] 9.80 10*3/uL Normal 4.80-10.80 [facility] CBC panel Auto (Bld)on 03-27 Erythrocyte distribution width (RBC) [Entitic vol] 14.3 % 11.5 - 14.5 % [facility] Hematocrit (Bld) [Volume fraction] 44.4 % 36.0 - 46.0 % [facility] Hemoglobin (Bld) [Mass/Vol] 15.2 g/dL 12.0 - 16.0 g/dL [facility] Interpretation and review of laboratory results Abnormal [facility] MCH (RBC) [Entitic mass] 30.4 pg 28.0 - 32.0 pg [facility] MCHC (RBC) [Mass/Vol] 34.2 g/dL 33.0 - 37.0 g/dL [facility] MCV (RBC) [Entitic vol] 88.9 fL 80.0 - 99.0 fL [facility] Platelet mean volume (Bld) [Entitic vol] 8.9 fL Low 9.4 - 12.4 fL [facility] Platelets (Bld) [#/Vol] 297 10*3/uL [facility] RBC (Bld) [#/Vol] 4.99 10*6/uL [facility] WBC (Bld) [#/Vol] 9.8 10*3/uL [facility] COMPREHENSIVE METABOLIC PANE Tariq 03-27-2024 Albumin [Mass/Vol] 3.2 g/dL Low 3.5-5.0 [facility] Comment on above: Order Comment: [facility] Services has implemented the eGFR calculation approach that does not have a coefficient for race that conforms to the NKF-ASN Task Force Recommendations. ALP [Catalytic activity/Vol] 71 U/L Normal 38-126 [facility] Comment on above: Order Comment: [facility] Services has implemented the eGFR calculation approach that does not have a coefficient for race that conforms to the NKF-ASN Task Force Recommendations. ALT [Catalytic activity/Vol] 13 U/L Normal 0-35 U/L [facility] Comment on above: Order Comment: [facility] Services has implemented the eGFR calculation approach that does not have a coefficient for race that conforms to the NKF-ASN Task Force Recommendations. Anion gap [Moles/Vol] 15 mmol/L Normal 10-20 [facility] Comment on above: Order Comment: [facility] Services has implemented the eGFR calculation approach that does not have a coefficient for race that conforms to the NKF-ASN Task Force Recommendations. AST [Catalytic activity/Vol] 21 U/L Normal 0-35 U/L [facility] Comment on above: Order Comment: [facility] Services has implemented the eGFR calculation approach that does not have a coefficient for race that conforms to the NKF-ASN Task Force Recommendations. Bilirubin [Mass/Vol] 0.7 mg/dL Normal 0.3-1.2 [facility] Comment on above: Order Comment: [facility] Laboratory [facility] has implemented the eGFR calculation approach that does not have a coefficient for race that conforms to the NKF-ASN Task Force Recommendations. Calcium [Mass/Vol] 8.7 mg/dL Normal 8.4-10.2 [facility] Comment on above: Order Comment: [facility] Laboratory [facility] has implemented the eGFR calculation approach that does not have a coefficient for race that conforms to the NKF-ASN Task Force Recommendations. Chloride [Moles/Vol] 106 mmol/L Normal 98-107 [facility] Comment on above: Order Comment: [facility] Laboratory [facility] has implemented the eGFR calculation approach that does not have a coefficient for race that conforms to the NKF-ASN Task Force Recommendations. Creatinine [Mass/Vol] 0.58 mg/dL Normal 0.40-1.10 [facility] Comment on above: Order Comment: [facility] has implemented the eGFR calculation approach that does not have a coefficient for race that conforms to the NKF-ASN Task Force Recommendations. EGFR 115 mL/min/1.73 m2 Normal >=60 [facility] Comment on above: Order Comment: [facility] has implemented the eGFR calculation approach that does not have a coefficient for race that conforms to the NKF-ASN Task Force Recommendations. Result Comment: Rosario mated GFR was calculated using the 2020 CKD-EPI creatinine equation. Glucose [Mass/Vol] 109 mg/dL Normal 70-126 [facility] Comment on above: Order Comment: [facility] Services has implemented the eGFR calculation approach that does not have a coefficient for race that conforms to the NKF-ASN Task Force Recommendations. HCO3 (Bld) [Moles/Vol] 20 mmol/L Low 22-31 [facility] Comment on above: Order Comment: [facility] Services has implemented the eGFR calculation approach that does not have a coefficient for race that conforms to the NKF-ASN Task Force Recommendations. Potassium [Moles/Vol] 3.9 mmol/L Normal 3.5-5.1 [facility] Comment on above: Order Comment: [facility] Laboratory [facility] has implemented the eGFR calculation approach that does not have a coefficient for race that conforms to the NKF-ASN Task Force Recommendations. Protein [Mass/Vol] 7.4 g/dL Normal 6.4-8.3 [facility] Comment on above: Order Comment: [facility] has implemented the eGFR calculation approach that does not have a coefficient for race that conforms to the NKF-ASN Task Force Recommendations. Sodium [Moles/Vol] 137 mmol/L Normal 136-145 [facility] Comment on above: Order Comment: [facility] has implemented the eGFR calculation approach that does not have a coefficient for race that conforms to the NKF-ASN Task Force Recommendations. Urea nitrogen [Mass/Vol] 14 mg/dL Normal 7-22 [facility] Comment on above: Order Comment: [facility] has implemented the eGFR calculation approach that does not have a coefficient for race that conforms to the NKF-ASN Task Force Recommendations. Urea nitrogen/Creatinine [Mass ratio] 24.1 mg/mg High 10.0-20.0 [facility] Comment on above: Order Comment: [facility] Services has implemented the eGFR calculation approach that does not have a coefficient for race that conforms to the NKF-ASN Task Force Recommendations. CRP [Mass/Vol]on 03-27-2024 Interpretation and review of laboratory results Normal [facility] CRP, INFLAMMATIONon 03-27-20 CRP (INFLAMMATION) < Normal 0.0-1.0 [facility] CRP, Inflammationon 03-27-20 24 CRP [Mass/Vol] mg/L 0.0 - 1.0 mg/L [facility] Comprehensive metabolic 2000 panelon 03-27-2024 Albumin [Mass/Vol] 3.2 g/dL Low 3.5 - 5.0 g/dL [facility] ALP [Catalytic activity/Vol] 71 U/L 38 - 126 U/L [facility] ALT [Catalytic activity/Vol] 13 U/L 0-35 U/L [facility] Anion gap [Moles/Vol] 15 mmol/L 10 - 20 mmol/L [facility] AST [Catalytic activity/Vol] 21 U/L 0-35 U/L [facility] Bilirubin [Mass/Vol] 0.7 mg/dL 0.3 - 1 .2 mg/dL [facility] Calcium [Mass/Vol] 8.7 mg/dL 8.4 - 10. 2 mg/dL [facility] Chloride [Moles/Vol] 106 mmol/L 98 - 10 7 mmol/L [facility] Creatinine [Mass/Vol] 0.58 mg/dL 0.40 - 1.10 mg/dL [facility] GFR/1.73 sq M.predicted CKD-EPI (S/P/Bld) [Vol rate/Area] 115 - PINF [facility] Comment on above: Estimated GFR was ca lculated using the 2020 CKD-EPI creatinine equation. Glucose [Mass/Vol] 109 mg/dL 70 - 126 mg/dL [facility] HCO3 [Moles/Vol] 20 mmol/L Low 22 - 31 mmol/L [facility] Potassium [Moles/Vol] 3.9 mmol/L 3.5 - 5.1 mmol/L [facility] Protein [Mass/Vol] 7.4 g/dL 6.4 - 8.3 g/dL [facility] Sodium [Moles/Vol] 137 mmol/L 136 - 145 mmol/L [facility] Urea nitrogen [Mass/Vol] 14 mg/dL 7 - 22 mg/dL [facility] Urea nitrogen/Creatinine [Mass ratio] 24.1 mg/mg High 10.0 - 20.0 [facility] Laborator y Services has implemented the eGFR calculation approach that does not have a coefficient for race that conforms to the NKF-ASN Task Force Recommendations. [facility] Glucose (Bld) [Mass/Vol]on 05-28-2023 Glucose [Mass/Vol] 115 mg/dL High 65 - 99 mg/dL [facility] Interpretation and review of laboratory results Abnormal [facility] MAGNESIUM LEVELon 03-27-2024 Magnesium [Mass/Vol] 2.2 mg/dL Normal 1.7-2.8 [facility] Magnesium Levelon 03-27-2024 Magnesium [Mass/Vol] 2.2 mg/dL 1.7 - 2 .8 mg/dL [facility] Magnesium [Mass/Vol]on 03-27 Interpretation and review of laboratory results Normal [facility] No Panel Informationon 03-27 Interpretation and review of laboratory results Abnormal [facility] PHOSPHORUSon 03-27-2024 Phosphate [Mass/Vol] 2.3 mg/dL Low 2.5-4.6 [facility] POC GLUCOSE - RALSon 024 Glucose [Mass/Vol] 115 mg/dL High 65-99 [facility] PROCALCITONINon 03-27-2024 PROCALCITONIN 0.07 ng/ml Normal <0.50 [facility] Comment on above: Order Comment: [facility] Services has implemented the eGFR calculation approach that does not have a coefficient for race that conforms to the NKF-ASN Task Force Recommendations. Performed By: #### [id number] ####[facility] [address] [place] [address] Sai Lara M.D. [id number] Phosphoruson 03-27-2024 Phosphate [Mass/Vol] 2.3 mg/dL Low 2.5 - 4 .6 mg/dL [facility] Procalcitoninon 03-27-2024 Procalcitonin [Mass/Vol] 0.07 ng/mL [facility] ng/ml [facility] Procalcitonin [Mass/Vol]on 05-28-2023 Interpretation and review of laboratory results Normal [facility] Results <0.50 ng/ml represent a low risk of severe sepsis and/or septic shock. [facility] Urine Aerobic CultureOrdered By: Karen Sandhu on 03-27-2024 Bacteria identified Aer cx Nom (Unsp spec) 10,000-49,000 CFU/mL Escherichia coli Abnormal [facility] Bacteria identified Aer cx Nom (Unsp spec) < 10,000 CFU/mL of normal urogenital microbiota [facility] CBCon 03-26-2024 Erythrocyte distribution width (RBC) [Ratio] 14.5 % Normal 11.5-14.5 [facility] Hematocrit (Bld) [Volume fraction] 48.4 % High 36.0-46.0 [facility] Hemoglobin (Bld) [Mass/Vol] 16.0 g/dL Normal 12.0-16.0 [facility] MCH (RBC) [Entitic mass] 29.9 pg Normal 28.0-32.0 [facility] MCV (RBC) [Entitic vol] 90.7 fL Normal 80.0-99.0 [facility] MEAN CORPUSCULAR HEMOGLOBIN CONC 33.0 g/dL Normal 33.0-37.0 [facility] Platelet mean volume (Bld) [Entitic vol] 8.3 fL Low 9.4-12.4 [facility] Platelets (Bld) [#/Vol] 288 10*3/uL Normal 120-400 [facility] RBC (Bld) [#/Vol] 5.33 10*6/uL High 4.00-5.20 [facility] WBC (Bld) [#/Vol] 12.70 10*3/uL High 4.80-10.80 [facility] CBC panel Auto (Bld)on 03-26 Erythrocyte distribution width (RBC) [Entitic vol] 14.5 % 11.5 - 14.5 % [facility] Hematocrit (Bld) [Volume fraction] 48.4 % High 36.0 - 46.0 % [facility] Hemoglobin (Bld) [Mass/Vol] 16 g/dL 12.0 - 16.0 g/dL [facility] Interpretation and review of laboratory results Abnormal [facility] MCH (RBC) [Entitic mass] 29.9 pg 28.0 - 32.0 pg [facility] MCHC (RBC) [Mass/Vol] 33 g/dL 33.0 - 37.0 g/dL [facility] MCV (RBC) [Entitic vol] 90.7 fL 80.0 - 99.0 fL [facility] Platelet mean volume (Bld) [Entitic vol] 8.3 fL Low 9.4 - 12.4 fL [facility] Platelets (Bld) [#/Vol] 288 10*3/uL [facility] RBC (Bld) [#/Vol] 5.33 10*6/uL High [facility] WBC (Bld) [#/Vol] 12.7 10*3/uL High [facility] COMPREHENSIVE METABOLIC PANE Tariq 03-26-2024 Albumin [Mass/Vol] 3.2 g/dL Low 3.5-5.0 [facility] Comment on above: Order Comment: [facility] Services has implemented the eGFR calculation approach that does not have a coefficient for race that conforms to the NKF-ASN Task Force Recommendations. ALP [Catalytic activity/Vol] 81 U/L Normal 38-126 [facility] Comment on above: Order Comment: [facility] Laboratory [facility] has implemented the eGFR calculation approach that does not have a coefficient for race that conforms to the NKF-ASN Task Force Recommendations. ALT [Catalytic activity/Vol] 13 U/L Normal 0-35 U/L [facility] Comment on above: Order Comment: [facility] Laboratory [facility] has implemented the eGFR calculation approach that does not have a coefficient for race that conforms to the NKF-ASN Task Force Recommendations. Anion gap [Moles/Vol] 15 mmol/L Normal 10-20 [facility] Comment on above: Order Comment: [facility] has implemented the eGFR calculation approach that does not have a coefficient for race that conforms to the NKF-ASN Task Force Recommendations. AST [Catalytic activity/Vol] 15 U/L Normal 0-35 U/L [facility] Comment on above: Order Comment: [facility] Services has implemented the eGFR calculation approach that does not have a coefficient for race that conforms to the NKF-ASN Task Force Recommendations. Bilirubin [Mass/Vol] 0.5 mg/dL Normal 0.3-1.2 [facility] Comment on above: Order Comment: [facility] Services has implemented the eGFR calculation approach that does not have a coefficient for race that conforms to the NKF-ASN Task Force Recommendations. Calcium [Mass/Vol] 8.8 mg/dL Normal 8.4-10.2 [facility] Comment on above: Order Comment: [facility] Services has implemented the eGFR calculation approach that does not have a coefficient for race that conforms to the NKF-ASN Task Force Recommendations. Chloride [Moles/Vol] 105 mmol/L Normal 98-107 [facility] Comment on above: Order Comment: [facility] Laboratory [facility] has implemented the eGFR calculation approach that does not have a coefficient for race that conforms to the NKF-ASN Task Force Recommendations. Creatinine [Mass/Vol] 0.34 mg/dL Low 0.40-1.10 [facility] Comment on above: Order Comment: [facility] has implemented the eGFR calculation approach that does not have a coefficient for race that conforms to the NKF-ASN Task Force Recommendations. EGFR 130 mL/min/1.73 m2 Normal >=60 [facility] Comment on above: Order Comment: [facility] has implemented the eGFR calculation approach that does not have a coefficient for race that conforms to the NKF-ASN Task Force Recommendations. Result Comment: Rosario mated GFR was calculated using the 2020 CKD-EPI creatinine equation. Glucose [Mass/Vol] 112 mg/dL Normal 70-126 [facility] Comment on above: Order Comment: [facility] has implemented the eGFR calculation approach that does not have a coefficient for race that conforms to the NKF-ASN Task Force Recommendations. HCO3 (Bld) [Moles/Vol] 19 mmol/L Low 22-31 [facility] Comment on above: Order Comment: [facility] has implemented the eGFR calculation approach that does not have a coefficient for race that conforms to the NKF-ASN Task Force Recommendations. Potassium [Moles/Vol] 3.6 mmol/L Normal 3.5-5.1 [facility] Comment on above: Order Comment: [facility] has implemented the eGFR calculation approach that does not have a coefficient for race that conforms to the NKF-ASN Task Force Recommendations. Protein [Mass/Vol] 7.6 g/dL Normal 6.4-8.3 [facility] Comment on above: Order Comment: [facility] has implemented the eGFR calculation approach that does not have a coefficient for race that conforms to the NKF-ASN Task Force Recommendations. Sodium [Moles/Vol] 135 mmol/L Low 136-145 [facility] Comment on above: Order Comment: [facility] Services has implemented the eGFR calculation approach that does not have a coefficient for race that conforms to the NKF-ASN Task Force Recommendations. Urea nitrogen [Mass/Vol] 15 mg/dL Normal 7-22 [facility] Comment on above: Order Comment: [facility] Services has implemented the eGFR calculation approach that does not have a coefficient for race that conforms to the NKF-ASN Task Force Recommendations. Urea nitrogen/Creatinine [Mass ratio] 44.1 mg/mg High 10.0-20.0 [facility] Comment on above: Order Comment: [facility] Services has implemented the [...] EST RP Dictated by: MIKE MARIEE IN [employer] on FriMar 26, 2024 10:54:44 AM EST Transcribed by: MIKE MAIREE IN [employer] on FriMar 26, 2024 10:54:44 AM EST Finalized by: MIKE MARIEE IN [employer] on FriMar 26, 2024 10:54:44 AM EST [facility] Comment on above: Order Comment: Injur y/Trauma [...] Lazaro MD 03/26/2024 10:54 AM EST RP Nominum CT Abdomen and Pelvi s with Contrast [...] at L2-L3. No lymphadenopathy. No free fluid. [employer] Cassy Pitts MD - 03/26/2024 CT Abdomen and Pelvis [...] Lazaro MD 03/26/2024 10:54 AM EST RP [facility] Radiology Study observation (narrative) [facility] CT CHEST WITH CONTRASTon CT CHEST WITH [...] EST RP Dictated by: MIKE MARIEE IN [employer] on FriMar 26, 2024 10:41:20 AM EST Transcribed by: MIKE MARIEE IN [employer] on FriMar 26, 2024 10:41:20 AM EST Finalized by: MIKE MARIEE IN [employer] on FriMar 26, 2024 10:41:20 AM EST Normal [facility] Comment on above: Order Comment: Vidya [...] is recommended. Reference: J Am Fabiola Radiol. 2014;12(2): 143-50 Electronically signed by: Cassy Lazaro MD 03/26/2024 10:[address] chest with contra st INDICATION: Pneumonia, [...] 1.4 cm heterogeneous low-density right thyroid nodule. [facility] Cassy Lazaro MD - 03/26/2024 CT chest [...] Cassy Lazaro MD 03/26/2024 10:41 AM EST [facility] Radiology Study observation (narrative) [facility] CT Chest W contrast IVOrdere d By: Cassy Lazaro on 03-26-2024 [facility] Comprehensive metabolic 2000 panelon 03-26-2024 Albumin [Mass/Vol] 3.2 g/dL Low 3.5 - 5.0 g/dL [facility] ALP [Catalytic activity/Vol] 81 U/L 38 - 126 U/L [facility] ALT [Catalytic activity/Vol] 13 U/L 0-35 U/L [facility] Anion gap [Moles/Vol] 15 mmol/L 10 - 20 mmol/L [facility] AST [Catalytic activity/Vol] 15 U/L 0-35 U/L [facility] Bilirubin [Mass/Vol] 0.5 mg/dL 0.3 - 1 .2 mg/dL [facility] Calcium [Mass/Vol] 8.8 mg/dL 8.4 - 10. 2 mg/dL [facility] Chloride [Moles/Vol] 105 mmol/L 98 - 10 7 mmol/L [facility] Creatinine [Mass/Vol] 0.34 mg/dL Low 0.40 - 1.10 mg/dL [facility] GFR/1.73 sq M.predicted CKD-EPI (S/P/Bld) [Vol rate/Area] 130 - PINF [facility] Comment on above: Estimated GFR was ca lculated using the 2020 CKD-EPI creatinine equation. Glucose [Mass/Vol] 112 mg/dL 70 - 126 mg/dL [facility] HCO3 [Moles/Vol] 19 mmol/L Low 22 - 31 mmol/L [facility] Potassium [Moles/Vol] 3.6 mmol/L 3.5 - 5.1 mmol/L [facility] Protein [Mass/Vol] 7.6 g/dL 6.4 - 8.3 g/dL [facility] Sodium [Moles/Vol] 135 mmol/L Low 136 - 145 mmol/L [facility] Urea nitrogen [Mass/Vol] 15 mg/dL 7 - 22 mg/dL [facility] Urea nitrogen/Creatinine [Mass ratio] 44.1 mg/mg High 10.0 - 20.0 [facility] y Services has implemented the eGFR calculation approach that does not have a coefficient for race that conforms to the NKF-ASN Task Force Recommendations. [facility] ECHOCARDIOGRAM COMPLETEon ECHOCARDIOGRAM COMPLETE Patient Info Name: LISA CHAUDHRY Age: 43 years : 1980 Gender: Female Ht: 173 cm Wt: 66 kg BSA: 1.78 m2 Exam Date: 03/26/2024 11:46 AM Patient Status: Outpatient Keno Clerk: Radha Malik RDCS Exam Type: ECHOCARDIOGRAM COMPLETE Study Info Indications - Valve disease/murmur Attending Physician: CLARENCE WYNN [id number] BMI: 22.20 kg/m2 Procedure(s): Complete two-dimensional, color [...] mmHg MV VTI 20 cm MV Decel Anderson 581 cm/s2 MV PHT 35 ms MV [...] Regurgitation 2D (more content not included)... Normal [facility] Echo completeOrdered By: Adelfo Bernard on 03-26-2024 Aortic valve area 3.57976 cm [facility] Work Phone: AV mean gradient 3 mmHg [facility] Work Phone: AV peak gradient 5.6644 mmHg [facility] Work Phone: [facility] Work Phone: Echo completeon 03-26-2024 Patient Info Name: LISA CHAUDHRY Age: 43 years : 1980 Gender: Female Ht: 173 cm Wt: 66 kg BSA: 1.78 m2 Exam Date: 03/26/2024 11:46 AM Patient Status: Outpatient Keno Clerk: King, Radha RDCS Exam Type: ECHOCARDIOGRAM COMPLETE Study Info Indications - Valve disease/murmur Attending Physician: CLARENCE WYNN [id number] BMI: 22.20 kg/m2 Procedure(s): Complete two-dimensional, color [...] mmHg MV VTI 20 cm MV Decel Anderson 581 cm/s2 MV PHT 35 ms MV [...] VTI 65.10 cm (more content not included)... Adalid Fisher MD - 03/26/2024 Patient Info Name: LISA CHAUDHRY Age: 43 years : 1980 Gender: Female Ht: 173 cm Wt: 66 kg BSA: 1.78 m2 Exam Date: 03/26/2024 11:46 AM Patient Status: Outpatient Keno Clerk: Radha Malik SHRUTI Exam Type: ECHOCARDIOGRAM COMPLETE Study Info Indications - Valve disease/murmur Attending Physician: CLARENCE WYNN [id number] BMI: 22.20 kg/m2 Procedure(s): Complete two-dimensional, color [...] mmHg MV VTI 20 cm MV Decel Anderson 581 cm/s2 MV PHT 35 ms MV [...] (Cont Eq Ve (more content not included)... [facility] Gold Topon 03-26-2024 Extra Tube Hold for add-ons. [facility] Comment on above: Auto resulted. [facility] Mg Topon 03-26-2024 Extra Tube Hold for add-ons. [facility] Comment on above: Auto resulted. [facility] LIPASEon 03-26-2024 Lipase [Catalytic activity/Vol] 31 U/L Normal 22-51 [facility] Lipaseon 03-26-2024 Lipase [Catalytic activity/Vol] 31 U/L 22 - 51 U/L [facility] Lipase [Catalytic activity/V ol]on 03-26-2024 Interpretation and review of laboratory results Normal [facility] MAGNESIUM LEVELon 03-26-2024 Magnesium [Mass/Vol] 2.1 mg/dL Normal 1.7-2.8 [facility] MRSA DNA AMPLIFIED PROBEon 1 05-27-2023 MRSA DNA AMPLIFIED PROBE Not detected Normal Not Detected, MRSA NEGATIVE [facility] Comment on above: Performed By: #### [id number] #### [facility] [address] [place] [id number] Sai Lara M.D. [id number] MRSA DNA Amplified ProbeOrde red By: Ricky Pride on 03-26-2024 MRSA DNA CHANDANA+probe Ql (Unsp spec) Not detected Not Detected, MRSA NEGATIVE [facility] MRSA DNA CHANDANA+probe Ql (Unsp spec)Ordered By: Ricky Pride on 03-26-2024 Interpretation and review of laboratory results Normal [facility] Magnesium Levelon 03-26-2024 Magnesium [Mass/Vol] 2.1 mg/dL 1.7 - 2 .8 mg/dL [facility] Magnesium [Mass/Vol]on 03-26 Interpretation and review of laboratory results Normal [facility] No Panel Informationon 03-26 Interpretation and review of laboratory results Abnormal [facility] PHOSPHORUSon 03-26-2024 Phosphate [Mass/Vol] 1.9 mg/dL Low 2.5-4.6 [facility] Phosphoruson 03-26-2024 Phosphate [Mass/Vol] 1.9 mg/dL Low 2.5 - 4 .6 mg/dL [facility] VANCOMYCIN LEVEL, RANDOMon 1 05-27-2023 VANCOMYCIN RANDOM 7.8 mcg/mL Normal [facility] Comment on above: Order Comment: As of 01/2022 vancomycin dosing for [facility] inpatients will be done by Bayesian dosing software rather than off traditional trough values. Please contact the site specific inpatient pharmacy before making dose changes off of trough values alone for admitted patients. No established reference range. Vancomycin Level, Randomon 1 05-27-2023 Vancomycin [Mass/Vol] 7.8 mcg/mL [facility] Vancomycin [Mass/Vol]on As of 01/2022 vancom ycin dosing for [facility] inpatients will be done by Bayesian dosing software rather than off traditional trough values. Please contact the site specific inpatient pharmacy before making dose changes off of trough values alone for admitted patients. No established reference range. [facility] BASIC METABOLIC PANELon Anion gap [Moles/Vol] 15 mmol/L Normal 10-20 [facility] Comment on above: Order Comment: [facility] Services has implemented the eGFR calculation approach that does not have a coefficient for race that conforms to the NKF-ASN Task Force Recommendations. Calcium [Mass/Vol] 8.7 mg/dL Normal 8.4-10.2 [facility] Comment on above: Order Comment: [facility] Services has implemented the eGFR calculation approach that does not have a coefficient for race that conforms to the NKF-ASN Task Force Recommendations. Chloride [Moles/Vol] 107 mmol/L Normal 98-107 [facility] Comment on above: Order Comment: [facility] Laboratory [facility] has implemented the eGFR calculation approach that does not have a coefficient for race that conforms to the NKF-ASN Task Force Recommendations. Creatinine [Mass/Vol] 0.42 mg/dL Normal 0.40-1.10 [facility] Comment on above: Order Comment: [facility] Laboratory [facility] has implemented the eGFR calculation approach that does not have a coefficient for race that conforms to the NKF-ASN Task Force Recommendations. EGFR 124 mL/min/1.73 m2 Normal >=60 [facility] Comment on above: Order Comment: [facility] has implemented the eGFR calculation approach that does not have a coefficient for race that conforms to the NKF-ASN Task Force Recommendations. Result Comment: Rosario mated GFR was calculated using the 2020 CKD-EPI creatinine equation. Glucose [Mass/Vol] 122 mg/dL Normal 70-126 [facility] Comment on above: Order Comment: [facility] has implemented the eGFR calculation approach that does not have a coefficient for race that conforms to the NKF-ASN Task Force Recommendations. HCO3 (Bld) [Moles/Vol] 20 mmol/L Low 22-31 [facility] Comment on above: Order Comment: [facility] has implemented the eGFR calculation approach that does not have a coefficient for race that conforms to the NKF-ASN Task Force Recommendations. Potassium [Moles/Vol] 4.0 mmol/L Normal 3.5-5.1 [facility] Comment on above: Order Comment: [facility] has implemented the eGFR calculation approach that does not have a coefficient for race that conforms to the NKF-ASN Task Force Recommendations. Sodium [Moles/Vol] 138 mmol/L Normal 136-145 [facility] Comment on above: Order Comment: [facility] has implemented the eGFR calculation approach that does not have a coefficient for race that conforms to the NKF-ASN Task Force Recommendations. Urea nitrogen [Mass/Vol] 13 mg/dL Normal 7-22 [facility] Comment on above: Order Comment: [facility] Services has implemented the eGFR calculation approach that does not have a coefficient for race that conforms to the NKF-ASN Task Force Recommendations. Urea nitrogen/Creatinine [Mass ratio] 31.0 mg/mg High 10.0-20.0 [facility] Comment on above: Order Comment: [facility] has implemented the eGFR calculation approach that does not have a coefficient for race that conforms to the NKF-ASN Task Force Recommendations. Anion gap [Moles/Vol] 16 mmol/L Normal 10-20 [facility] Comment on above: Order Comment: [facility] has implemented the eGFR calculation approach that does not have a coefficient for race that conforms to the NKF-ASN Task Force Recommendations. Calcium [Mass/Vol] 8.8 mg/dL Normal 8.4-10.2 [facility] Comment on above: Order Comment: [facility] has implemented the eGFR calculation approach that does not have a coefficient for race that conforms to the NKF-ASN Task Force Recommendations. Chloride [Moles/Vol] 106 mmol/L Normal 98-107 [facility] Comment on above: Order Comment: [facility] has implemented the eGFR calculation approach that does not have a coefficient for race that conforms to the NKF-ASN Task Force Recommendations. Creatinine [Mass/Vol] 0.56 mg/dL Normal 0.40-1.10 [facility] Comment on above: Order Comment: [facility] has implemented the eGFR calculation approach that does not have a coefficient for race that conforms to the NKF-ASN Task Force Recommendations. EGFR 116 mL/min/1.73 m2 Normal >=60 [facility] Comment on above: Order Comment: [facility] has implemented the eGFR calculation approach that does not have a coefficient for race that conforms to the NKF-ASN Task Force Recommendations. Result Comment: Rosario mated GFR was calculated using the 2020 CKD-EPI creatinine equation. Glucose [Mass/Vol] 123 mg/dL Normal 70-126 [facility] Comment on above: Order Comment: [facility] Services has implemented the eGFR calculation approach that does not have a coefficient for race that conforms to the NKF-ASN Task Force Recommendations. HCO3 (Bld) [Moles/Vol] 18 mmol/L Low 22-31 [facility] Comment on above: Order Comment: [facility] Services has implemented the eGFR calculation approach that does not have a coefficient for race that conforms to the NKF-ASN Task Force Recommendations. Potassium [Moles/Vol] 3.2 mmol/L Low 3.5-5.1 [facility] Comment on above: Order Comment: [facility] Services has implemented the eGFR calculation approach that does not have a coefficient for race that conforms to the NKF-ASN Task Force Recommendations. Sodium [Moles/Vol] 137 mmol/L Normal 136-145 [facility] Comment on above: Order Comment: [facility] Services has implemented the eGFR calculation approach that does not have a coefficient for race that conforms to the NKF-ASN Task Force Recommendations. Urea nitrogen [Mass/Vol] 12 mg/dL Normal 7-22 [facility] Comment on above: Order Comment: [facility] Services has implemented the eGFR calculation approach that does not have a coefficient for race that conforms to the NKF-ASN Task Force Recommendations. Urea nitrogen/Creatinine [Mass ratio] 21.4 mg/mg High 10.0-20.0 [facility] Comment on above: Order Comment: [facility] Services has implemented the eGFR calculation approach that does not have a coefficient for race that conforms to the NKF-ASN Task Force Recommendations. BLOOD CULTURE AEROBIC/ANAERO BICon 03-25-2024 BLOOD CULTURE AEROBIC/ANAEROBIC BLOOD CULTURE No Growth after 5 days Normal [facility] Comment on above: Performed By: #### [id number] ####[facility] [address] [place] [id number] Sai Lara M.D. [id number] BLOOD CULTURE AEROBIC/ANAEROBIC BLOOD CULTURE No Growth after 5 days Normal [facility] Comment on above: Performed By: #### [id number] #### [facility] [address] [address] Sai Lara M.D. [id number] Basic metabolic 2000 panelon 03-25-2024 Anion gap [Moles/Vol] 15 mmol/L 10 - 20 mmol/L [facility] Calcium [Mass/Vol] 8.7 mg/dL 8.4 - 10. 2 mg/dL [facility] Chloride [Moles/Vol] 107 mmol/L 98 - 10 7 mmol/L [facility] Creatinine [Mass/Vol] 0.42 mg/dL 0.40 - 1.10 mg/dL [facility] GFR/1.73 sq M.predicted CKD-EPI (S/P/Bld) [Vol rate/Area] 124 - PINF [facility] Comment on above: Estimated GFR was ca lculated using the 2020 CKD-EPI creatinine equation. Glucose [Mass/Vol] 122 mg/dL 70 - 126 mg/dL [facility] HCO3 [Moles/Vol] 20 mmol/L Low 22 - 31 mmol/L [facility] Interpretation and review of laboratory results Abnormal [facility] Potassium [Moles/Vol] 4 mmol/L 3.5 - 5.1 mmol/L [facility] Sodium [Moles/Vol] 138 mmol/L 136 - 145 mmol/L [facility] Urea nitrogen [Mass/Vol] 13 mg/dL 7 - 22 mg/dL [facility] Urea nitrogen/Creatinine [Mass ratio] 31 mg/mg High 10.0 - 20.0 [facility] has implemented the eGFR calculation approach that does not have a coefficient for race that conforms to the NKF-ASN Task Force Recommendations. [facility] Anion gap [Moles/Vol] 16 mmol/L 10 - 20 mmol/L [facility] Calcium [Mass/Vol] 8.8 mg/dL 8.4 - 10. 2 mg/dL [facility] Chloride [Moles/Vol] 106 mmol/L 98 - 10 7 mmol/L [facility] Creatinine [Mass/Vol] 0.56 mg/dL 0.40 - 1.10 mg/dL [facility] GFR/1.73 sq M.predicted CKD-EPI (S/P/Bld) [Vol rate/Area] 116 - PINF [facility] Comment on above: Estimated GFR was ca lculated using the 2020 CKD-EPI creatinine equation. Glucose [Mass/Vol] 123 mg/dL 70 - 126 mg/dL [facility] HCO3 [Moles/Vol] 18 mmol/L Low 22 - 31 mmol/L [facility] Interpretation and review of laboratory results Abnormal [facility] Potassium [Moles/Vol] 3.2 mmol/L Low 3.5 - 5.1 mmol/L [facility] Sodium [Moles/Vol] 137 mmol/L 136 - 145 mmol/L [facility] Urea nitrogen [Mass/Vol] 12 mg/dL 7 - 22 mg/dL [facility] Urea nitrogen/Creatinine [Mass ratio] 21.4 mg/mg High 10.0 - 20.0 [facility] has implemented the eGFR calculation approach that does not have a coefficient for race that conforms to the NKF-ASN Task Force Recommendations. [facility] Beta HCG ( test) Ql Ordered By: Anita Yip on 03-25-2024 Interpretation and review of laboratory results Normal [facility] CBC Auto Differentialon Basophils (Bld) [#/Vol] 0 10*3/uL [facility] Basophils/100 WBC (Bld) 0.1 % 0.0 - 3.0 % [facility] Eosinophils (Bld) [#/Vol] 0 10*3/uL [facility] Eosinophils/100 WBC (Bld) 0.1 % 0.0 - 4.0 % [facility] Erythrocyte distribution width (RBC) [Entitic vol] 14.4 % 11.5 - 14.5 % [facility] Hematocrit (Bld) [Volume fraction] 49.9 % High 36.0 - 46.0 % [facility] Hemoglobin (Bld) [Mass/Vol] 16.1 g/dL High 12.0 - 16.0 g/dL [facility] Interpretation and review of laboratory results Abnormal [facility] Lymphocytes (Bld) [#/Vol] 1.3 10*3/uL [facility] Lymphocytes/100 WBC (Bld) 7.8 % Low 17.6 - 49.6 % [facility] MCH (RBC) [Entitic mass] 29.6 pg 28.0 - 32.0 pg [facility] MCHC (RBC) [Mass/Vol] 32.3 g/dL Low 33.0 - 37.0 g/dL [facility] MCV (RBC) [Entitic vol] 91.5 fL 80.0 - 99.0 fL [facility] Monocytes (Bld) [#/Vol] 1.5 10*3/uL High [facility] Monocytes/100 WBC (Bld) 8.5 % 4.1 - 12.4 % [facility] Neutrophils (Bld) [#/Vol] 14.2 10*3/uL [facility] Neutrophils/100 WBC (Bld) 83.5 % High 39.4 - 72.5 % [facility] Platelet mean volume (Bld) [Entitic vol] 8.3 fL Low 9.4 - 12.4 fL [facility] Platelets (Bld) [#/Vol] 310 10*3/uL [facility] RBC (Bld) [#/Vol] 5.45 10*6/uL [facility] WBC (Bld) [#/Vol] 17 10*3/uL [facility] CBC WITH AUTO DIFFERENTIALon 03-25-2024 BASOPHILS ABSOLUTE COUNT 0.00 K/mcL Normal 0.00-0.30 [facility] Basophils/100 WBC (Bld) 0.1 % Normal 0.0-3.0 [facility] Eosinophils (Bld) [#/Vol] 0.00 10*3/uL Normal 0.00-0.50 [facility] Eosinophils/100 WBC (Bld) 0.1 % Normal 0.0-4.0 [facility] Erythrocyte distribution width (RBC) [Ratio] 14.4 % Normal 11.5-14.5 [facility] Hematocrit (Bld) [Volume fraction] 49.9 % High 36.0-46.0 [facility] Hemoglobin (Bld) [Mass/Vol] 16.1 g/dL High 12.0-16.0 [facility] Lymphocytes (Bld) [#/Vol] 1.30 10*3/uL Normal 0.90-4.00 [facility] Lymphocytes/100 WBC (Bld) 7.8 % Low 17.6-49.6 [facility] MCH (RBC) [Entitic mass] 29.6 pg Normal 28.0-32.0 [facility] MCV (RBC) [Entitic vol] 91.5 fL Normal 80.0-99.0 [facility] MEAN CORPUSCULAR HEMOGLOBIN CONC 32.3 g/dL Low 33.0-37.0 [facility] Monocytes (Bld) [#/Vol] 1.50 10*3/uL High 0.30-0.90 [facility] Monocytes/100 WBC (Bld) 8.5 % Normal 4.1-12.4 [facility] NEUTROPHILS ABSOLUTE COUNT 14.20 K/mcL High 1.70-7.00 [facility] Neutrophils/100 WBC (Bld) 83.5 % High 39.4-72.5 [facility] Platelet mean volume (Bld) [Entitic vol] 8.3 fL Low 9.4-12.4 [facility] Platelets (Bld) [#/Vol] 310 10*3/uL Normal 120-400 [facility] RBC (Bld) [#/Vol] 5.45 10*6/uL High 4.00-5.20 [facility] WBC (Bld) [#/Vol] 17.00 10*3/uL High 4.80-10.80 [facility] CRP [Mass/Vol]on 03-25-2024 Interpretation and review of laboratory results Normal [facility] CRP, INFLAMMATIONon 03-25-20 CRP (INFLAMMATION) < Normal 0.0-1.0 [facility] CRP, Inflammationon 03-25-20 24 CRP [Mass/Vol] mg/L 0.0 - 1.0 mg/L [facility] EKG 12-leadon 03-25-2024 Atrial Rate 58 BPM [facility] P [place] 59 degrees [facility] P-R Interval 154 ms [facility] Q-T Interval 438 ms [facility] QRS Duration 74 ms [facility] QTC Calculation (Bezet) 429 ms [facility] R [place] 32 degrees [facility] T [place] 26 degrees [facility] Ventricular Rate 58 BPM [facility] th Sinus bradycardia wi th sinus arrhythmia Otherwise normal ECG When compared with ECG of 16-JUL-2007 19:15, Minimal criteria for Anteroseptal infarct are no longer Present Nonspecific T wave abnormality now evident in Inferior leads ECG Cart Interpretation see physician note for interpretation. Confirmed by [facility] Rachel, Cassie Ramos ([id number]), graphic editor July Rosario ([id number]) on 03/25/2024 7:51:34 AM MUSE [facility] Free T4 [Mass/Vol]on 024 Interpretation and review of laboratory results Normal [facility] Interpretation and review of laboratory results Normal [facility] Gold Topon 03-25-2024 Extra Tube Hold for add-ons. [facility] Comment on above: Auto resulted. [facility] HbA1c (Bld) [Mass fraction]o n 03-25-2024 Average glucose Estimated from glycated hemoglobin (Bld) [Mass/Vol] 117 mg/dL High 74 - 114 mg/dL [facility] Interpretation and review of laboratory results Abnormal [facility] Normal: 4.2% - 5.6% Increased risk for diabetes: 5.7% - 6.4% Diabetes: >= 6.5% Pediatrics: No established reference range Estimated average glucose: 74-114 mg/dL [facility] Hemoglobin A1con 03-25-2024 HbA1c (Bld) [Mass fraction] 5.7 % High 4.2 - 5.6 % [facility] LACTIC ACID, PLASMAon 2023 LACTIC ACID, PLASMA 1.1 mmol/L Normal 0.5-2.2 [facility] Lactate [Moles/Vol]Ordered B y: [place] Trujillo on 03-25-2024 Interpretation and review of laboratory results Normal [facility] Lactic Acid, PlasmaOrdered B y: [place] Trujillo on 03-25-2024 Lactate [Moles/Vol] 1.1 mmol/L 0.5 - 2. 2 mmol/L [facility] MAGNESIUM LEVELon 03-25-2024 Magnesium [Mass/Vol] 1.9 mg/dL Normal 1.7-2.8 [facility] Magnesium Levelon 03-25-2024 Magnesium [Mass/Vol] 1.9 mg/dL 1.7 - 2 .8 mg/dL [facility] No Panel Informationon 03-25 Interpretation and review of laboratory results Normal [facility] PHOSPHORUSon 03-25-2024 Phosphate [Mass/Vol] 2.5 mg/dL Normal 2.5-4.6 [facility] PROCALCITONINon 03-25-2024 PROCALCITONIN 0.06 ng/ml Normal <0.50 [facility] Comment on above: Order Comment: Resul ts <0.50 ng/ml represent a low risk of severe sepsis and/or septic shock. Performed By: #### [id number] ####[facility] [address] [place] [id number] Sai Lara M.D. [id number] Phosphoruson 03-25-2024 Phosphate [Mass/Vol] 2.5 mg/dL 2.5 - 4 .6 mg/dL [facility] Procalcitoninon 03-25-2024 Procalcitonin [Mass/Vol] 0.06 ng/mL NINF - 0.50 ng/ml [facility] Procalcitonin [Mass/Vol]on 05-26-2023 Interpretation and review of laboratory results Normal [facility] Results <0.50 ng/ml represent a low risk of severe sepsis and/or septic shock. [facility] T4, FREEon 03-25-2024 Free T4 [Mass/Vol] 1.2 ng/dL Normal 0.7-1.7 [facility] Comment on above: Performed By: #### [id number] #### [facility] [address] [place] [id number] Sai Lara M.D. [id number] T4, Freeon 03-25-2024 Free T4 [Mass/Vol] 1.2 ng/dL 0.7 - 1.7 ng/dL [facility] Free T4 [Mass/Vol] 1.3 ng/dL 0.7 - 1.7 ng/dL [facility] hCG, Serum, QualitativeOrder ed By: Anita Yip on 03-25-2024 Beta HCG ( test) Ql Negative Negative [facility] ALCOHOL, MEDICALon ALCOHOL MEDICAL < Normal <10.0 [facility] Comment on above: Result Comment: Alco hol cutoff: <10.00 mg/dL = None Detected AMMONIAon 03-24-2024 AMMONIA 26 micromol/L Normal 9-35 [facility] Ammoniaon 03-24-2024 Ammonia (P) [Mass/Vol] 26 ug/dL [facility] Ammonia (P) [Mass/Vol]on Interpretation and review of laboratory results Normal [facility] BLOOD GAS, VENOUSon 03-24-20 24 FIO2 TEXT FROM QUESTION 21 %/L Normal [facility] Oxygen saturation in Blood 87.0 % High 40.0-70.0 [facility] PCO2 VENOUS 34.4 mm Hg Low 41.0-51.0 [facility] PH VENOUS 7.41 Normal 7.31-7.41 [facility] PO2 VENOUS 54 mm Hg High 25-40 [facility] BRAIN NATRIURETIC PEPTIDE - VWHon 03-24-2024 Natriuretic peptide B (Bld) [Mass/Vol] 123 pg/mL High 15-100 [facility] CBC Auto Differentialon Basophils (Bld) [#/Vol] 0 10*3/uL [facility] Basophils/100 WBC (Bld) 0.2 % 0.0 - 3.0 % [facility] Eosinophils (Bld) [#/Vol] 0 10*3/uL [facility] Eosinophils/100 WBC (Bld) 0.1 % 0.0 - 4.0 % [facility] Erythrocyte distribution width (RBC) [Entitic vol] 14.3 % 11.5 - 14.5 % [facility] Hematocrit (Bld) [Volume fraction] 50.2 % High 36.0 - 46.0 % [facility] Hemoglobin (Bld) [Mass/Vol] 16.5 g/dL High 12.0 - 16.0 g/dL [facility] Interpretation and review of laboratory results Abnormal [facility] Lymphocytes (Bld) [#/Vol] 0.7 10*3/uL Low [facility] Lymphocytes/100 WBC (Bld) 5.5 % Low 17.6 - 49.6 % [facility] MCH (RBC) [Entitic mass] 29.7 pg 28.0 - 32.0 pg [facility] MCHC (RBC) [Mass/Vol] 32.9 g/dL Low 33.0 - 37.0 g/dL [facility] MCV (RBC) [Entitic vol] 90.3 fL 80.0 - 99.0 fL [facility] Monocytes (Bld) [#/Vol] 0.2 10*3/uL Low [facility] Monocytes/100 WBC (Bld) 1.8 % Low 4.1 - 12.4 % [facility] Neutrophils (Bld) [#/Vol] 11.5 10*3/uL High [facility] Neutrophils/100 WBC (Bld) 92.4 % High 39.4 - 72.5 % [facility] Platelet mean volume (Bld) [Entitic vol] 8.3 fL Low 9.4 - 12.4 fL [facility] Platelets (Bld) [#/Vol] 303 10*3/uL [facility] RBC (Bld) [#/Vol] 5.56 10*6/uL High [facility] WBC (Bld) [#/Vol] 12.4 10*3/uL [facility] CBC WITH AUTO DIFFERENTIALon 03-24-2024 BASOPHILS ABSOLUTE COUNT 0.00 K/mcL Normal 0.00-0.30 [facility] Basophils/100 WBC (Bld) 0.2 % Normal 0.0-3.0 [facility] Eosinophils (Bld) [#/Vol] 0.00 10*3/uL Normal 0.00-0.50 [facility] Eosinophils/100 WBC (Bld) 0.1 % Normal 0.0-4.0 [facility] Erythrocyte distribution width (RBC) [Ratio] 14.3 % Normal 11.5-14.5 [facility] Hematocrit (Bld) [Volume fraction] 50.2 % High 36.0-46.0 [facility] Hemoglobin (Bld) [Mass/Vol] 16.5 g/dL High 12.0-16.0 [facility] Lymphocytes (Bld) [#/Vol] 0.70 10*3/uL Low 0.90-4.00 [facility] Lymphocytes/100 WBC (Bld) 5.5 % Low 17.6-49.6 [facility] MCH (RBC) [Entitic mass] 29.7 pg Normal 28.0-32.0 [facility] MCV (RBC) [Entitic vol] 90.3 fL Normal 80.0-99.0 [facility] MEAN CORPUSCULAR HEMOGLOBIN CONC 32.9 g/dL Low 33.0-37.0 [facility] Monocytes (Bld) [#/Vol] 0.20 10*3/uL Low 0.30-0.90 [facility] Monocytes/100 WBC (Bld) 1.8 % Low 4.1-12.4 [facility] NEUTROPHILS ABSOLUTE COUNT 11.50 K/mcL High 1.70-7.00 [facility] Neutrophils/100 WBC (Bld) 92.4 % High 39.4-72.5 [facility] Platelet mean volume (Bld) [Entitic vol] 8.3 fL Low 9.4-12.4 [facility] Platelets (Bld) [#/Vol] 303 10*3/uL Normal 120-400 [facility] RBC (Bld) [#/Vol] 5.56 10*6/uL High 4.00-5.20 [facility] WBC (Bld) [#/Vol] 12.40 10*3/uL High 4.80-10.80 [facility] COMPREHENSIVE METABOLIC PANE Tariq 03-24-2024 Albumin [Mass/Vol] 4.2 g/dL Normal 3.5-5.0 [facility] Comment on above: Order Comment: [facility] Services has implemented the eGFR calculation approach that does not have a coefficient for race that conforms to the NKF-ASN Task Force Recommendations. ALP [Catalytic activity/Vol] 96 U/L Normal 38-126 [facility] Comment on above: Order Comment: [facility] has implemented the eGFR calculation approach that does not have a coefficient for race that conforms to the NKF-ASN Task Force Recommendations. ALT [Catalytic activity/Vol] 19 U/L Normal 0-35 U/L [facility] Comment on above: Order Comment: [facility] has implemented the eGFR calculation approach that does not have a coefficient for race that conforms to the NKF-ASN Task Force Recommendations. Anion gap [Moles/Vol] 17 mmol/L Normal 10-20 [facility] Comment on above: Order Comment: [facility] has implemented the eGFR calculation approach that does not have a coefficient for race that conforms to the NKF-ASN Task Force Recommendations. AST [Catalytic activity/Vol] 24 U/L Normal 0-35 U/L [facility] Comment on above: Order Comment: [facility] has implemented the eGFR calculation approach that does not have a coefficient for race that conforms to the NKF-ASN Task Force Recommendations. Bilirubin [Mass/Vol] 0.5 mg/dL Normal 0.3-1.2 [facility] Comment on above: Order Comment: [facility] has implemented the eGFR calculation approach that does not have a coefficient for race that conforms to the NKF-ASN Task Force Recommendations. Calcium [Mass/Vol] 9.6 mg/dL Normal 8.4-10.2 [facility] Comment on above: Order Comment: [facility] has implemented the eGFR calculation approach that does not have a coefficient for race that conforms to the NKF-ASN Task Force Recommendations. Chloride [Moles/Vol] 105 mmol/L Normal 98-107 [facility] Comment on above: Order Comment: [facility] Laboratory [facility] has implemented the eGFR calculation approach that does not have a coefficient for race that conforms to the NKF-ASN Task Force Recommendations. Creatinine [Mass/Vol] 0.68 mg/dL Normal 0.40-1.10 [facility] Comment on above: Order Comment: [facility] has implemented the eGFR calculation approach that does not have a coefficient for race that conforms to the NKF-ASN Task Force Recommendations. EGFR 110 mL/min/1.73 m2 Normal >=60 [facility] Comment on above: Order Comment: [facility] has implemented the eGFR calculation approach that does not have a coefficient for race that conforms to the NKF-ASN Task Force Recommendations. Result Comment: Rosario mated GFR was calculated using the 2020 CKD-EPI creatinine equation. Glucose [Mass/Vol] 145 mg/dL High 70-126 [facility] Comment on above: Order Comment: [facility] has implemented the eGFR calculation approach that does not have a coefficient for race that conforms to the NKF-ASN Task Force Recommendations. HCO3 (Bld) [Moles/Vol] 20 mmol/L Low 22-31 [facility] Comment on above: Order Comment: [facility] has implemented the eGFR calculation approach that does not have a coefficient for race that conforms to the NKF-ASN Task Force Recommendations. Potassium [Moles/Vol] 3.5 mmol/L Normal 3.5-5.1 [facility] Comment on above: Order Comment: [facility] has implemented the eGFR calculation approach that does not have a coefficient for race that conforms to the NKF-ASN Task Force Recommendations. Protein [Mass/Vol] 9.0 g/dL High 6.4-8.3 [facility] Comment on above: Order Comment: [facility] has implemented the eGFR calculation approach that does not have a coefficient for race that conforms to the NKF-ASN Task Force Recommendations. Sodium [Moles/Vol] 138 mmol/L Normal 136-145 [facility] Comment on above: Order Comment: [facility] Laboratory [facility] has implemented the eGFR calculation approach that does not have a coefficient for race that conforms to the NKF-ASN Task Force Recommendations. Urea nitrogen [Mass/Vol] 13 mg/dL Normal 7-22 [facility] Comment on above: Order Comment: [facility] has implemented the eGFR calculation approach that does not have a coefficient for race that conforms to the NKF-ASN Task Force Recommendations. Urea nitrogen/Creatinine [Mass ratio] 19.1 mg/mg Normal 10.0-20.0 [facility] Comment on above: Order Comment: [facility] has implemented the [...] MIKE MARIEE IN FUJI SPEECHQ on FriMar 24, 2024 6:40:46 PM EST Transcribed by: MIKE MARIEE IN FUJI SPEECHQ on FriMar 24, 2024 6:40:46 PM EST Finalized by: KODI RAD IN FUJI SPEECHQ on FriMar 24, 2024 6:40:46 PM EST Normal [facility] Comment on above: Order Comment: Injur y/Trauma or Illness?:Illness/OtherHow long have you had these symptoms (acute/chronic)?:AcuteReason for exam?:AMSType of Exam?:InitialAdditional signs and symptoms?:AMS CT Head WO contraston 2023 IMPRESSION: No acute large vessel infarct, acute intracranial hemorrhage, or intracranial mass lesion. Electronically signed by: Rubén Yost MD 03/24/2024 06:40 PM EST RP Nominum EXAMINATION: CT HEAD, without contrast CLINICAL INFORMATION: [...] and middle ear cavities are well aerated. [employer] [facility] Rubén Yost MD - 03/24/2024 EXAMINATION: CT [...] by: Rubén Yost MD 03/24/2024 06:40 PM [facility] Radiology Study observation (narrative) [facility] CT Head WO contrastOrdered B y: Rubén Yost on 03-24-2024 [facility] Work Phone: Comprehensive metabolic 2000 panelon 03-24-2024 Albumin [Mass/Vol] 4.2 g/dL 3.5 - 5.0 g/dL [facility] ALP [Catalytic activity/Vol] 96 U/L 38 - 126 U/L [facility] ALT [Catalytic activity/Vol] 19 U/L 0-35 U/L [facility] Anion gap [Moles/Vol] 17 mmol/L 10 - 20 mmol/L [facility] AST [Catalytic activity/Vol] 24 U/L 0-35 U/L [facility] Bilirubin [Mass/Vol] 0.5 mg/dL 0.3 - 1 .2 mg/dL [facility] Calcium [Mass/Vol] 9.6 mg/dL 8.4 - 10. 2 mg/dL [facility] Chloride [Moles/Vol] 105 mmol/L 98 - 10 7 mmol/L [facility] Creatinine [Mass/Vol] 0.68 mg/dL 0.40 - 1.10 mg/dL [facility] GFR/1.73 sq M.predicted CKD-EPI (S/P/Bld) [Vol rate/Area] 110 - PINF [facility] Comment on above: Estimated GFR was ca lculated using the 2020 CKD-EPI creatinine equation. Glucose [Mass/Vol] 145 mg/dL High 70 - 126 mg/dL [facility] HCO3 [Moles/Vol] 20 mmol/L Low 22 - 31 mmol/L [facility] Interpretation and review of laboratory results Abnormal [facility] Potassium [Moles/Vol] 3.5 mmol/L 3.5 - 5.1 mmol/L [facility] Protein [Mass/Vol] 9 g/dL High 6.4 - 8.3 g/dL [facility] Sodium [Moles/Vol] 138 mmol/L 136 - 145 mmol/L [facility] Urea nitrogen [Mass/Vol] 13 mg/dL 7 - 22 mg/dL [facility] Urea nitrogen/Creatinine [Mass ratio] 19.1 mg/mg 10.0 - 20.0 [facility] y Services has implemented the eGFR calculation approach that does not have a coefficient for race that conforms to the NKF-ASN Task Force Recommendations. [facility] Critical Careon 03-24-2024 Hiwot Hoover CNP 03/24/2024 [...] of old charts and vascular access procedures. [facility] DRUGS OF ABUSE SCREEN, URINE on 03-24-2024 AMPHETAMINE SCREEN, URINE Negative Normal Negative [facility] Comment on above: Order Comment: Scree n results should be used for treatment purposes only. Result Comment: Urin e Amphetamines Cutoff: <500 ng/mL = None Detected. BARBITURATE SCREEN URINE Negative Normal Negative [facility] Comment on above: Order Comment: Scree n results should be used for treatment purposes only. Result Comment: Urin e Barbiturates Cutoff: <200 ng/mL = None Detected. BENZODIAZEPINE SCREEN, URINE Negative Normal Negative [facility] Comment on above: Order Comment: Scree n results should be used for treatment purposes only. Result Comment: Urin e Benzodiazepines Cutoff: <200 ng/mL = None Detected. CANNABINOID SCREEN URINE Negative Normal Negative [facility] Comment on above: Order Comment: Scree n results should be used for treatment purposes only. Result Comment: Urin e Cannabinoids cutoff: <50 ng/mL = None Detected. COCAINE, SCREEN URINE Negative Normal Negative [facility] Comment on above: Order Comment: Scree n results should be used for treatment purposes only. Result Comment: Urin e Cocaine Cutoff: 150 ng/mL = None Detected. METHADONE SCREEN, URINE Negative Normal Negative [facility] Comment on above: Order Comment: Scree n results should be used for treatment purposes only. Result Comment: Urin e Methadone Cutoff: <100 ng/mL = None Deteced. METHAMPHETAMINE SCREEN Negative Normal Negative [facility] Comment on above: Order Comment: Scree n results should be used for treatment purposes only. Result Comment: Urin e Methamphetamines Cutoff: <500 ng/mL = None Detected. OPIATE SCREEN URINE Negative Normal Negative [facility] Comment on above: Order Comment: Scree n results should be used for treatment purposes only. Result Comment: Urin e Opiates Cutoff: 300 ng/mL = None Detected. TRICYCLICS SCREEN Negative Normal Negative [facility] Comment on above: Order Comment: Scree n results should be used for treatment purposes only. Result Comment: Urin e Tricyclic Antidepressants Cutoff: <1000 ng/mL = None Detected. ED Prov Noteon 03-24-2024 ED [facility] MED SURG ATTENDING NOTE: NAME: Lisa Chaudhry CSN: [id number] 43 y.o. PCP: Brandi, Physician History: Chief Complaint: Withdrawal and Altered Mental Status HPI: The history was obtained from the patient. Lisa is a 43 y.o. female who presents with a chief complaint of Withdrawal and Altered Mental Status. Past medical history of drug abuse. 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 Patient was being seen there [...] 189/89. Afebrile. Nontachycardic. 98% on room air. Lmuea-dl-yfde glucose was checked 133. Patient is in [...] Resource Strain: Low Risk (06/17/2023) Received from [facility] Overall Financial Resource Strain (CARDIA) Difficulty of Paying Living Expenses: Not very hard Food Insecurity: Food Insecurity Present (06/17/2023) Received from [facility] Hunger Vital Sign Worried About Running Out of Food in the Last Year: Sometimes true Ran Out of Food in the Last Year: Sometimes true Transportation Needs: No Transportation Needs (06/17/2023) Received from [facility] PRAPARE - Transportation Lack of Transportation (Medical): No Lack of Transportation (Non-Medical): No Housing Stability: Unknown (06/17/2023) Received from [facility] Housing Stability Vital Sign Unable [...] (!) 1 (more content not included)... Normal [facility] EKGon 03-24-2024 [facility] ETOH (Medical Alcohol)on Ethanol [Mass/Vol] mg/dL NINF - 10 .0 mg/dL [facility] Comment on above: Alcohol cutoff: <10. 00 mg/dL = None Detected Ethanol [Mass/Vol]on 024 Interpretation and review of laboratory results Normal [facility] Gas panel (BldV)on CO2 (BldV) [Partial pressure] 34.4 mm[Hg] Low [facility] Inhaled oxygen concentration 21 %/L [facility] Interpretation and review of laboratory results Abnormal [facility] Oxygen (BldV) [Partial pressure] 54 mm[Hg] High [facility] Oxygen saturation in Venous blood 87 % High 40.0 - 70.0 % [facility] pH (BldV) 7.41 [pH] 7.31 - 7.41 [facility] Glucose (Bld) [Mass/Vol]on 1 05-25-2023 Glucose [Mass/Vol] 133 mg/dL High 65 - 99 mg/dL [facility] Interpretation and review of laboratory results Abnormal [facility] Gold Topon 03-24-2024 Extra Tube Hold for add-ons. [facility] Comment on above: Auto resulted. [facility] Extra Tube Hold for add-ons. [facility] Comment on above: Auto resulted. [facility] H AND Maxx 03-24-2024 H AND P [...] Unknown: Please investigate and enter into EPIC. Home Medications: Prior to Admission medications Medication [...] Patient P (more content not included)... Normal [facility] HCG, SERUM, QUALITATIVEon BETA-HCG QUAL BLOOD Negative Normal Negative [facility] HEMOGLOBIN A1Con 03-24-2024 Glucose [Mass/Vol] 117 mg/dL High 74-114 [facility] Comment on above: Order Comment: Vidya l: 4.2% - 5.6% Increased risk for diabetes: 5.7% - 6.4% Diabetes: >= 6.5% Pediatrics: No established reference range Estimated average glucose: 74-114 mg/dL Performed By: #### [id number] #### [facility] [address] [address] Sai Lara M.D. [id number] HbA1c (Bld) [Mass fraction] 5.7 % High 4.2-5.6 [facility] Comment on above: Order Comment: Vidya l: 4.2% - 5.6% Increased risk for diabetes: 5.7% - 6.4% Diabetes: >= 6.5% Pediatrics: No established reference range Estimated average glucose: 74-114 mg/dL Performed By: #### [id number] #### [facility] [address] [place] [address] Sai Lara M.D. [id number] LACTIC ACID, PLASMAon 2023 LACTIC ACID, PLASMA 1.9 mmol/L Normal 0.5-2.2 [facility] LIPASEon 03-24-2024 Lipase [Catalytic activity/Vol] 29 U/L Normal 22-51 [facility] Lactate [Moles/Vol]on 2023 Interpretation and review of laboratory results Normal [facility] Lactic Acidon 03-24-2024 Lactate [Moles/Vol] 1.9 mmol/L 0.5 - 2. 2 mmol/L [facility] Lipaseon 03-24-2024 Lipase [Catalytic activity/Vol] 29 U/L 22 - 51 U/L [facility] Lipase [Catalytic activity/V ol]on 03-24-2024 Interpretation and review of laboratory results Normal [facility] Natriuretic peptide B [Mass/ Vol]Ordered By: Geralidne Jenkins on 03-24-2024 Interpretation and review of laboratory results Abnormal [facility] Natriuretic peptide B (Bld) [Mass/Vol] 123 pg/mL High 15 - 100 pg/mL [facility] No Panel Informationon 03-24 Extra Tube Hold for add-ons. [facility] Comment on above: Auto resulted. [facility] POC GLUCOSE - RALSon 024 Glucose [Mass/Vol] 133 mg/dL High 65-99 [facility] T4, FREEon 03-24-2024 Free T4 [Mass/Vol] 1.3 ng/dL Normal 0.7-1.7 [facility] Comment on above: Performed By: #### [id number] ####[facility] [address] [place] [address] Sai Lara M.D. [id number] TROPONINon 03-24-2024 BASELINE TROPONIN I NG/L 4 ng/L Normal <=59 [facility] TROPONIN I INTERPRETATION Normal Normal [facility] TSH DL <= 0.005 mIU/L Qnon 1 05-25-2023 Interpretation and review of laboratory results Abnormal [facility] TSH Qn 0.12 m[IU]/L Low [facility] TSH WITH REFLEX FREE T4on TSH Qn 0.12 m[IU]/L Low 0.27-4.20 [facility] Troponinon 03-24-2024 Troponin I 4 ng/L NINF - 59 ng/L [facility] Troponin I Interpretation Normal [facility] URINALYSISon 03-24-2024 BACTERIA, URINE Many Abnormal None Seen [facility] Comment on above: Order Comment: [facility] Laboratory [facility] has implemented the eGFR calculation approach that does not have a coefficient for race that conforms to the NKF-ASN Task Force Recommendations. BILIRUBIN, URINE Negative Normal Negative [facility] Comment on above: Order Comment: [facility] Laboratory [facility] has implemented the eGFR calculation approach that does not have a coefficient for race that conforms to the NKF-ASN Task Force Recommendations. BLOOD, URINE Small Abnormal Negative [facility] Comment on above: Order Comment: [facility] has implemented the eGFR calculation approach that does not have a coefficient for race that conforms to the NKF-ASN Task Force Recommendations. Clarity (U) Cloudy Abnormal Clear [facility] Comment on above: Order Comment: [facility] has implemented the eGFR calculation approach that does not have a coefficient for race that conforms to the NKF-ASN Task Force Recommendations. Color (U) Yellow Normal Colorless, Yellow [facility] Comment on above: Order Comment: [facility] has implemented the eGFR calculation approach that does not have a coefficient for race that conforms to the NKF-ASN Task Force Recommendations. Glucose Ql (U) Negative Normal Negative, >=1000 [facility] Comment on above: Order Comment: [facility] has implemented the eGFR calculation approach that does not have a coefficient for race that conforms to the NKF-ASN Task Force Recommendations. Ketones Ql (U) >=80 Abnormal Negative [facility] Comment on above: Order Comment: [facility] has implemented the eGFR calculation approach that does not have a coefficient for race that conforms to the NKF-ASN Task Force Recommendations. Leukocyte esterase Test strip Ql (U) Negative Normal Negative [facility] Comment on above: Order Comment: [facility] has implemented the eGFR calculation approach that does not have a coefficient for race that conforms to the NKF-ASN Task Force Recommendations. MUCUS, URINE Many Abnormal None Seen, Rare [facility] Comment on above: Order Comment: [facility] has implemented the eGFR calculation approach that does not have a coefficient for race that conforms to the NKF-ASN Task Force Recommendations. NITRITE, URINE Negative Normal Negative [facility] Comment on above: Order Comment: [facility] has implemented the eGFR calculation approach that does not have a coefficient for race that conforms to the NKF-ASN Task Force Recommendations. pH (U) 8.0 [pH] High 5.0-7.0 [facility] Comment on above: Order Comment: [facility] has implemented the eGFR calculation approach that does not have a coefficient for race that conforms to the NKF-ASN Task Force Recommendations. PROTEIN, URINE Negative Normal Negative [facility] Comment on above: Order Comment: [facility] has implemented the eGFR calculation approach that does not have a coefficient for race that conforms to the NKF-ASN Task Force Recommendations. Specific gravity (U) [Rel density] 1.020 Normal 1.005-1.025 [facility] Comment on above: Order Comment: [facility] has implemented the eGFR calculation approach that does not have a coefficient for race that conforms to the NKF-ASN Task Force Recommendations. SQUAMOUS EPITHELIAL 3 /hpf Normal 0-4 [facility] Comment on above: Order Comment: [facility] has implemented the eGFR calculation approach that does not have a coefficient for race that conforms to the NKF-ASN Task Force Recommendations. UROBILINOGEN, URINE <2.0 Normal <2.0 [facility] Comment on above: Order Comment: [facility] has implemented the eGFR calculation approach that does not have a coefficient for race that conforms to the NKF-ASN Task Force Recommendations. WBC LM.HPF (Urine sed) [#/Area] 23 /[HPF] High 0-5 [facility] Comment on above: Order Comment: [facility] has implemented the eGFR calculation approach that does not have a coefficient for race that conforms to the NKF-ASN Task Force Recommendations. URINE AEROBIC CULTUREon URINE AEROBIC CULTURE URINE CULTURE ESCHERICHIA COLI [...] Extended Susc Islt S Negative F Abnormal [facility] Comment on above: Performed By: #### 4 [id number] #### [facility] [address] [place] [address] Sai Lara M.D. [id number] Urinalysison 03-24-2024 Bacteria Auto Ql (U) Many Abnormal None Se en /hpf [facility] Bilirubin Ql (U) Negative Negative [facility] th Clarity Refractometry automated (U) Cloudy Abnormal Clear [facility] Color (U) Yellow Colorless, Yellow [facility] Epithelial cells.squamous Auto (Urine sed) [#/Area] 3 [facility] Glucose Auto test strip (U) [Mass/Vol] Negative Negative, >=1000 mg/dL [facility] Hemoglobin Auto test strip Ql (U) Small Abnormal Negative [facility] Interpretation and review of laboratory results Abnormal [facility] Ketones (U) [Mass/Vol] mg/dL Abnormal Negative mg/dL [facility] Leukocyte esterase Auto test strip Ql (U) Negative Negative [facility] Mucus Auto (Urine sed) [#/Area] Many Abnormal None Seen, Rare /lpf [facility] Nitrite Auto test strip Ql (U) Negative Negative [facility] pH (U) 8 [pH] High 5.0 - 7.0 [facility] Protein (U) [Mass/Vol] Negative Negative mg/dL [facility] Specific gravity (U) [Rel density] 1.02 1.005 - 1.025 [facility] Urobilinogen (U) [Mass/Vol] mg/dL NINF - 2.0 mg/dL [facility] WBC Auto (Urine sed) [#/Area] 23 High [facility] Microscopic examinat ion is performed on all urinalysis samples and only positive findings are reported. The test for blood on the chemical analytic portion of urinalysis may also be positive due to hemoglobinuria and myoglobinuria and if red blood cells are present they are quantified by microscopic examination. [facility] Urine Drug ScreenOrdered By: Laury Nixon on 03-24-2024 Amphetamines Ql (U) Negative Negative [facility] Comment on above: Urine Amphetamines C utoff: <500 ng/mL = None Detected. Barbiturates Screen Ql (U) Negative Negative [facility] Comment on above: Urine Barbiturates C utoff: <200 ng/mL = None Detected. Benzodiazepines Ql (U) Negative Negative [facility] Comment on above: Urine Benzodiazepine s Cutoff: <200 ng/mL = None Detected. Cannabinoids Screen Ql (U) Negative Negative [facility] Comment on above: Urine Cannabinoids c utoff: <50 ng/mL = None Detected. Cocaine Ql (U) Negative Negative [facility] Comment on above: Urine Cocaine Cutoff : 150 ng/mL = None Detected. Interpretation and review of laboratory results Normal [facility] Methadone Screen Ql (U) Negative Negative [facility] Comment on above: Urine Methadone Cuto ff: <100 ng/mL = None Deteced. Methamphetamine (U) [Mass/Vol] Negative Negative [facility] Comment on above: Urine Methamphetamin es Cutoff: <500 ng/mL = None Detected. Opiates Screen Ql (U) Negative Negative [facility] Comment on above: Urine Opiates Cutoff : 300 ng/mL = None Detected. Tricyclic antidepressants [Mass/Vol] Negative Negative [facility] Comment on above: Urine Tricyclic Anti depressants Cutoff: <1000 ng/mL = None Detected. Screen results shoul d be used for treatment purposes only. [facility] XR CHEST PA/APon 03-24-2024 XR CHEST [...] provider or the ordering physician. Workstation ID: [id number] Dictated by: BRIGHT TAPIA on FriMar 24, 2024 4:03:22 PM EST Transcribed by: BRIGHT TAPIA on FriMar 24, 2024 4:03:22 PM EST Finalized by: BRIGHT TAPIA on FriMar 24, 2024 4:03:22 PM EST Normal [facility] Comment on above: Order Comment: Injur [...] provider or the ordering physician. Workstation ID: [id number] [employer] EXAMINATION: Exam: XR CHEST PA/AP Exam Date: 03/24/2024 HISTORY: Lethargy COMPARISON: Chest x-ray and 12/14/2007 FINDINGS: Lung: The lung segments appear normal. No pulmonary infiltrations or masses are present. Heart: The heart is normal in size and configuration. Mediastinum: The mediastinum appears normal. Pulmonary Vessels: The pulmonary vessels appear normal. The pulmonary vessels do not appear distended. Bone: There are no osseous abnormalities. Bright Garner MD - 03/24/2024 EXAMINATION: Exam: XR CHEST [...] provider or the ordering physician. Workstation ID: [id number] [facility] Radiology Study observation (narrative) [facility] XR Chest PA and Abdomen APOr dered By: Bright Tapia on 03-24-2024 [facility] Work Phone: Emergency Department Summary on 12-28-2023 Emergency Department Summary [facility] Medical Records Department [address] [place] [address] Emergency Department Summary 12/28/23 MR#: [id number] Acct: [id number] Name: LISA CHAUDHRY Rep #: [id number] : 1980 43 From: Mich Breaux MD [...] reported subjective fever, and redness to the [facility] of her right thigh. [facility] Medical History Anxiety Substance abuse Depression Home [...] with her primary (more content not included)... [facility] 36on 10-29-2023 36 Unable to get a hold of pt after several attempts. Certified letter sent out 10/29/23 [facility] 36 Called pt to [place]. Unable to leave [facility] d/t voice mailbox not being set up. Normal [facility] 10-28-2023 36 Tried calling caten t 10/28/23. To schedule a repeat pap. No answer, No voicemail. Normal [facility] 09-25-2023 36 Mychart mssg sent to schedule appt [facility] 09-24-2023 36 Pt due for repeat pa p ho leep. Please call and help schedule Normal [facility] Basic metabolic 2000 06-19-2023 Anion gap [Moles/Vol] 8 mmol/L Low 9-18 [facility] Comment on above: Order Comment: Speci men Type: URINE SPECIMEN Ordering Facility: [facility] Address: [address] [place] [address] Performed By: #### 2 106-3 #### [facility] CLIA [id number] [address] [facility] Order Comment: Speci men Type: BLOOD SPECIMEN Ordering Facility: [facility] Address: [address] [place] [address] Performed By: #### 4 537-7 #### [facility] CLIA [id number] [address] [place] [address] [place] Calcium [Mass/Vol] 8.8 mg/dL Normal 8.5-10.2 [facility] Comment on above: Order Comment: Speci men Type: URINE SPECIMEN Ordering Facility: [facility] Address: [address] [place] [address] Performed By: #### 2 106-3 #### [facility] CLIA [id number] [address] [facility] Order Comment: Speci men Type: BLOOD SPECIMEN Ordering Facility: [facility] Address: [address] [place] [address] Performed By: #### 4 537-7 #### [facility] CLIA [id number] [address] [place] [address] [place] Chloride [Moles/Vol] 106 mmol/L High 97-105 [facility] Comment on above: Order Comment: Speci men Type: URINE SPECIMEN Ordering Facility: [facility] Address: [address] [place] [address] Performed By: #### 2 106-3 #### [facility] CLIA [id number] [address] Order Comment: Speci men Type: BLOOD SPECIMEN Ordering Facility: [facility] Address: [address] [place] [address] Performed By: #### 4 537-7 #### [facility] CLIA [id number] [address] [place] [address] [place] CO2 [Moles/Vol] 24 mmol/L Normal 22-30 [facility] Comment on above: Order Comment: Speci men Type: URINE SPECIMEN Ordering Facility: [facility] Address: [address] [place] [address] Performed By: #### 2 106-3 #### [facility] CLIA [id number] [address] Order Comment: Speci men Type: BLOOD SPECIMEN Ordering Facility: [facility] Address: [address] [place] [address] Performed By: #### 4 537-7 #### [facility] CLIA [id number] [address] [place] [address] [place] Creatinine [Mass/Vol] 0.54 mg/dL Low 0.58-0.96 [facility] Comment on above: Order Comment: Speci men Type: URINE SPECIMEN Ordering Facility: [facility] Address: [address] [place] [address] Performed By: #### 2 106-3 #### [facility] CLIA [id number] [address] Order Comment: Speci men Type: BLOOD SPECIMEN Ordering Facility: [facility] Address: [address] [place] [address] Performed By: #### 4 537-7 #### [facility] CLIA [id number] [address] STATES [facility] Creatinine and Glomerular filtration rate.predicted panel (S/P/Bld) 117 mL/min/1.73m??? Normal >=60 [facility] Comment on above: Order Comment: Macey marin Type: URINE SPECIMEN Ordering Facility: [facility] Address: [address] [place] [address] Result Comment: Rosario mated Glomerular Filtration Rate [...] GFR. Performed By: #### 2 106-3 #### [facility] CLIA [id number] [address] [place] [address] [place] [facility] Order Comment: Macey marin Type: BLOOD SPECIMEN Ordering Facility: [facility] Address: [address] [place] [address] Performed By: #### 4 537-7 #### [facility] CLIA [id number] [address] [place] [address] [place] Glucose [Mass/Vol] 96 mg/dL Normal 74-99 [facility] Comment on above: Order Comment: Macey marin Type: URINE SPECIMEN Ordering Facility: [facility] Address: [address] [place] [address] Result Comment: The [place] [employer] (ADA) provides guidance for cutoff [...] Standards of Medical Care in Diabetes 2016, [place] [employer]. Diabetes Care. 2016.39(Suppl 1). Performed By: #### 2 106-3 #### [facility] CLIA [id number] [address] Order Comment: Speci men Type: BLOOD SPECIMEN Ordering Facility: [facility] Address: [address] [place] [address] Performed By: #### 4 537-7 #### [facility] CLIA [id number] [address] [place] [address] [place] Potassium [Moles/Vol] 4.0 mmol/L Normal 3.7-5.1 [facility] Comment on above: Order Comment: Speci men Type: URINE SPECIMEN Ordering Facility: [facility] Address: [address] [place] [address] Performed By: #### 2 106-3 #### [facility] CLIA [id number] [address] Order Comment: Speci men Type: BLOOD SPECIMEN Ordering Facility: [facility] Address: [address] [place] [address] Performed By: #### 4 537-7 #### [facility] CLIA [id number] [address] [place] [address] [place] Sodium [Moles/Vol] 138 mmol/L Normal 136-144 [facility] Comment on above: Order Comment: Speci men Type: URINE SPECIMEN Ordering Facility: [facility] Address: [address] [place] [address] Performed By: #### 2 106-3 #### [facility] CLIA [id number] [address] Order Comment: Speci men Type: BLOOD SPECIMEN Ordering Facility: [facility] Address: [address] [place] [address] Performed By: #### 4 537-7 #### [facility] CLIA [id number] [address] [place] [address] [place] Urea nitrogen [Mass/Vol] 6 mg/dL Low 7-21 [facility] Comment on above: Order Comment: Speci men Type: URINE SPECIMEN Ordering Facility: [facility] Address: [address] [place] [address] Performed By: #### 2 106-3 #### [facility] CLIA [id number] [address] Order Comment: Speci men Type: BLOOD SPECIMEN Ordering Facility: [facility] Address: [address] [place] [address] Performed By: #### 4 537-7 #### [facility] CLIA [id number] [address] [place] [address] [place] CBC panel Auto (Bld)on Erythrocyte distribution width (RBC) [Ratio] 13.0 % Normal 11.5-15.0 [facility] Comment on above: Order Comment: Speci men Type: URINE SPECIMEN Ordering Facility: [facility] Address: [address] [place] [address] Performed By: #### 2 106-3 #### [facility] CLIA [id number] [address] Order Comment: Speci men Type: BLOOD SPECIMEN Ordering Facility: [facility] Address: [address] [place] [address] Performed By: #### 4 537-7 #### [facility] CLIA [id number] [address] [place] [address] [place] Hematocrit (Bld) [Volume fraction] 38.6 % Normal 36.0-46.0 [facility] Comment on above: Order Comment: Speci men Type: URINE SPECIMEN Ordering Facility: [facility] Address: [address] [place] [address] Performed By: #### 2 106-3 #### [facility] CLIA [id number] [address] Order Comment: Speci men Type: BLOOD SPECIMEN Ordering Facility: [facility] Address: [address] [place] [address] Performed By: #### 4 537-7 #### [facility] CLIA [id number] [address] [place] [address] [place] Hemoglobin (Bld) [Mass/Vol] 13.2 g/dL Normal 11.5-15.5 [facility] Comment on above: Order Comment: Speci men Type: URINE SPECIMEN Ordering Facility: [facility] Address: [address] [place] [address] Performed By: #### 2 106-3 #### [facility] CLIA [id number] [address] [facility] Order Comment: Speci men Type: BLOOD SPECIMEN Ordering Facility: [facility] Address: [address] [place] [address] Performed By: #### 4 537-7 #### [facility] CLIA [id number] [address] [place] [address] [place] MCH (RBC) [Entitic mass] 32.5 pg Normal 26.0-34.0 [facility] Comment on above: Order Comment: Speci men Type: URINE SPECIMEN Ordering Facility: [facility] Address: [address] [place] [address] Performed By: #### 2 106-3 #### [facility] CLIA [id number] [address] Order Comment: Speci men Type: BLOOD SPECIMEN Ordering Facility: [facility] Address: [address] [place] [address] Performed By: #### 4 537-7 #### [facility] CLIA [id number] [address] [place] [address] [place] MCHC (RBC) [Mass/Vol] 34.2 g/dL Normal 30.5-36.0 [facility] Comment on above: Order Comment: Speci men Type: URINE SPECIMEN Ordering Facility: [facility] Address: [address] [place] [address] Performed By: #### 2 106-3 #### [facility] CLIA [id number] [address] Order Comment: Speci men Type: BLOOD SPECIMEN Ordering Facility: [facility] Address: [address] [place] [address] Performed By: #### 4 537-7 #### [facility] CLIA [id number] [address] [place] [address] [place] MCV (RBC) [Entitic vol] 95.1 fL Normal 80.0-100.0 [facility] Comment on above: Order Comment: Speci men Type: URINE SPECIMEN Ordering Facility: [facility] Address: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 mmol/L Normal 22-30 [facility] Comment on above: Order Comment: Speci men Type: BLOOD SPECIMENOrdering Facility: [facility] Address: [address] [place] [address] Performed By: #### 3 3762-6, HSTNT, ####[facility]ORATORYCLIA [id number] [address] [place] Creatinine [Mass/Vol] 0.57 mg/dL Low 0.58-0.96 [facility] Comment on above: Order Comment: Speci men Type: BLOOD SPECIMENOrdering Facility: [facility] Address: [address] [place] [address] Performed By: #### 3 3762-6, HSTNT, ####[facility] LABORATORYCLIA [id number] [address] Creatinine and Glomerular filtration rate.predicted panel (S/P/Bld) 115 mL/min/1.73m??? Normal >=60 [facility] Comment on above: Order Comment: Speci men Type: BLOOD SPECIMENOrdering Facility: [facility] Address: [address] [place] [address] Result Comment: Rosario mated Glomerular Filtration Rate [...] GFR. Performed By: #### 3 3762-6, HSTNT, ####[place] LABORATORYCLIA [id number] [place] [id number] [place] Glucose [Mass/Vol] 107 mg/dL High 74-99 [facility] Comment on above: Order Comment: Macey marin Type: BLOOD SPECIMENOrdering Facility: [facility] Address: [address] [place] [address] Result Comment: The [place] Diabetes Association (ADA) provides guidance for cutoff [...] Standards of Medical Care in Diabetes 2016, [place] [employer]. Diabetes Care. 2016.39(Suppl 1). Performed By: #### 3 3762-6, HSTNT, ####[facility]ORATORYCLIA [id number] [place] [address] [place] Potassium [Moles/Vol] 4.0 mmol/L Normal 3.7-5.1 [facility] Comment on above: Order Comment: Macey marin Type: BLOOD SPECIMENOrdering Facility: [facility] Address: [address] [place] [id number] Performed By: #### 3 3762-6, HSTNT, ####[facility] LABORATORYCLIA [id number] [place] [address] [place] Protein [Mass/Vol] 5.3 g/dL Low 6.3-8.0 [facility] Comment on above: Order Comment: Speci men Type: BLOOD SPECIMENOrdering Facility: [facility] Address: [address] [place] [address] Performed By: #### 3 3762-6, HSTNT, 1987-08, ####[facility] LABORATORYCLIA [id number] [place] [address] [place] Sodium [Moles/Vol] 141 mmol/L Normal 136-144 [facility] Comment on above: Order Comment: Speci men Type: BLOOD SPECIMENOrdering Facility: [facility] Address: [address] [place] [address] Performed By: #### 3 3762-6, HSTNT, 1987-08, ####[facility] LABORATORYCLIA [id number] [address] [place] Urea nitrogen [Mass/Vol] 8 mg/dL Normal 7-21 [facility] Comment on above: Order Comment: Speci men Type: BLOOD SPECIMENOrdering Facility: [facility] Address: [address] [place] [address] Performed By: #### 3 3762-6, HSTNT, 1987-08, ####[facility] LABORATORYCLIA [id number] [place] [address] [place] D dimer FEU PPP-mCncon 06-17 Fibrin D-dimer FEU (PPP) [Mass/Vol] 610 ng/mL FEU High <500 [facility] Comment on above: Order Comment: Speci men Type: BLOOD SPECIMEN [facility] Address: [address] [place] [address] Performed By: #### 4 8065-7 #### [facility] CLIA [id number] [address] [place] [address] [place] Order Comment: Speci men Type: BLOOD SPECIMENOrdering Facility: [facility] Address: [address] [place] [address] Performed By: #### 4 8065-7 ####[place] LABORATORYCLIA [id number] [address] STATES [facility] ESR Westergren method (Bld) [Velocity]on 06-17-2023 ESR (Bld) [Velocity] 5 mm/h Normal 0-20 [facility] Comment on above: Order Comment: Speci men Type: URINE SPECIMEN [facility] Address: [address] [place] [address] Performed By: #### 2 106-3 #### [facility] CLIA [id number] [address] STATES [facility] Order Comment: Speci men Type: BLOOD SPECIMEN [facility] Address: [address] [place] [address] Performed By: #### 4 537-7 #### [facility] CLIA [id number] [address] [place], [place] [address]K [id number] [place] [address] HCG Preg Ur Qlon 06-17-2023 HCG ( test) Ql (U) Negative Normal Negative [facility] Comment on above: Order Comment: Speci men Type: URINE SPECIMEN [facility] Address: [address] [place] [address] Result Comment: This test is intended to aid in the early detection of . Very dilute urine samples, as indicated by a low specific gravity, may not contain statement services representative levels of hCG. This test detects [...] . Performed By: #### 2 106-3 #### [facility] CLIA [id number] [address] HIGH SENSITIVITY TROPONIN To n 06-17-2023 Troponin T.cardiac High sensitivity method [Mass/Vol] 27 ng/L High <12 [facility] Comment on above: Order Comment: Macey marin Type: BLOOD SPECIMENOrdering Facility: [facility] Address: [address] [place] [address] Result Comment: When assessing risk for acute [...] MACE. Performed By: #### 3 3762-6, HSTNT, ####[place] [facility]ORATORYCLIA [id number] [address] NT-proBNP [facility] 06-17 Natriuretic peptide.B prohormone N-Terminal [Mass/Vol] 1683 pg/mL High <125 [facility] Comment on above: Order Comment: Macey marin Type: BLOOD SPECIMENOrdering Facility: [facility] Address: [address] [place] [address] Performed By: #### 3 3762-6, HSTNT, ####[facility] [place]ORATORYCLIA [id number] [address] [place] ALLIED HEALTHon 06-16-2023 ALLIED HEALTH HNO ID: [id number] Author: JULY MILLARD RT(R) Service: ? Author [...] PATIENT PRESENTS WITH AN IMPLANTABLE OR ATTACHED TRESTLE MECHANIC: No RADIOLOGY DEPARTMENT: General X-ray: Exam(s) Completed: Chest X-Ray PERIPHERAL IV DATA: Not applicable SIGNED BY: July Millard RT(R) June 16, 2023 9:47 AM Normal [facility] B-HCG SerPl-aCncon 4 HCG.beta subunit Qn m[IU]/mL Normal <5.0 [facility] Comment on above: Order Comment: Speci men Type: BLOOD SPECIMENOrdering Facility: [facility] Address: [address] [place] [address] Result Comment: Naresh lund Performed By: #### 2 4323-8, 3040-3, 72944-4 ####[facility] [place] LABCLIA [id number] [address] Bacteria Bld Culton 06-16-19 24 Bacteria identified Cx Nom (Bld) CULTURE, BLOOD: No growth 5 days Normal [facility] Comment on above: Performed By: #### 6 00-7 #### [facility] CLIA [id number] [address] Performed By: #### 6 00-7 ####[facility] LABORATORYCLIA [id number] [address] Bacteria Ur Culton 4 Bacteria identified Cx Nom (U) CULTURE, URINE: <10,000 CFU/ml Normal Urogenital Bisi Normal [facility] Comment on above: Performed By: #### 6 30-4 #### [facility] CLIA [id number] [address] CBC W Auto Differential pane l (Bld)on 06-16-2023 Anisocytosis Ql (Bld) Present Normal [facility] Comment on above: Order Comment: Speci men Type: BLOOD SPECIMENOrdering Facility: [facility] Address: [address] [place] [address] Performed By: #### 5 8410-2, 10431-9 ####[facility] [place] LABCLIA [id number] [place] [address] [place] Basophils (Bld) [#/Vol] 0.00 10*3/uL Normal <0.11 [facility] Comment on above: Order Comment: Speci men Type: BLOOD SPECIMENOrdering Facility: [facility] Address: [address] [place] [address] Performed By: #### 5 8410-2, 58722-9 ####[facility] [place] LABCLIA [id number] [place] [address] [place] Basophils/100 WBC (Bld) 0.0 % Normal [facility] Comment on above: Order Comment: Speci men Type: BLOOD SPECIMENOrdering Facility: [facility] Address: [address] [place] [address] Performed By: #### 5 8410-2, 38403-7 ####[facility] [place] LABCLIA [id number] [place] [facility] [place] [address] [facility] [place] Differential cell count method Nom (Bld) Manual Normal [facility] Comment on above: Order Comment: Speci men Type: BLOOD SPECIMENOrdering Facility: [facility] Address: [address] [place] [address] Performed By: #### 5 8410-2, 28363-5 ####[facility] [place] LABCLIA [id number] [place] [address] [place] Eosinophils (Bld) [#/Vol] 0.00 10*3/uL Normal <0.46 [facility] Comment on above: Order Comment: Speci men Type: BLOOD SPECIMENOrdering Facility: [facility] Address: [address] [place] [address] Performed By: #### 5 8410-2, 47938-4 ####[facility] [place] LABCLIA [id number] [place] [address] [place] Eosinophils/100 WBC (Bld) 0.0 % Normal [facility] Comment on above: Order Comment: Speci men Type: BLOOD SPECIMENOrdering Facility: [facility] Address: [address] [place] [address] Performed By: #### 5 8410-2, 40349-3 ####[facility] [place] LABCLIA [id number] [facility] [place] [address] [place] Lymphocytes (Bld) [#/Vol] 1.60 10*3/uL Normal 1.00-4.00 [facility] Comment on above: Order Comment: Speci men Type: BLOOD SPECIMENOrdering Facility: [facility] Address: [address] [place] [address] Performed By: #### 5 8410-2, 30074-5 ####[facility] [place] LABCLIA [id number] [place] [address] [facility] [place] Lymphocytes/100 WBC (Bld) 7.0 % Normal [facility] Comment on above: Order Comment: Speci men Type: BLOOD SPECIMENOrdering Facility: [facility] Address: [address] [place] [address] Performed By: #### 5 8410-2, 00969-9 ####[facility] LABCLIA [id number] [facility] [place] [address] [place] Monocytes (Bld) [#/Vol] 1.14 10*3/uL High <0.87 [facility] Comment on above: Order Comment: Speci men Type: BLOOD SPECIMENOrdering Facility: [facility] Address: [address] [place] [address] Performed By: #### 5 8410-2, 62139-2 ####[facility] [place] LABCLIA [id number] [facility] [place] [address] [facility] [place] Monocytes/100 WBC (Bld) 5.0 % Normal [facility] Comment on above: Order Comment: Speci men Type: BLOOD SPECIMENOrdering Facility: [facility] Address: [address] [place] [address] Performed By: #### 5 8410-2, 13947-5 ####[facility] [place] LABCLIA [id number] [place] [address] [place] Neutrophils (Bld) [#/Vol] 20.07 10*3/uL High 1.45-7.50 [facility] Comment on above: Order Comment: Speci men Type: BLOOD SPECIMENOrdering Facility: [facility] Address: [address] [place] [address] Performed By: #### 5 8410-2, 45127-9 ####[facility] [place] LABCLIA [id number] [place] [address] [place] Neutrophils/100 WBC (Bld) 88.0 % Normal [facility] Comment on above: Order Comment: Speci men Type: BLOOD SPECIMENOrdering Facility: [facility] Address: [address] [place] [address] Performed By: #### 5 8410-2, 57369-5 ####[facility] [place] LABCLIA [id number] [address] [facility] [address] [place] Nucleated RBC (Bld) [#/Vol] 10*3/uL Normal <0.01 [facility] Comment on above: Order Comment: Speci men Type: BLOOD SPECIMENOrdering Facility: [facility] Address: [address] [place] [address] Performed By: #### 5 8410-2, 00541-9 ####[facility] [place] LABCLIA [id number] [place] [address] [place] Nucleated RBC/100 WBC (Bld) [Ratio] 0.0 /100 WBC Normal [facility] Comment on above: Order Comment: Speci men Type: BLOOD SPECIMENOrdering Facility: [facility] Address: [address] [place] [address] Performed By: #### 5 8410-2, 16477-2 ####[facility] [place] LABCLIA [id number] [place] [address] [place] Platelets Estimate (Bld) [#/Vol] Adequate Normal [facility] Comment on above: Order Comment: Speci men Type: BLOOD SPECIMENOrdering Facility: [facility] Address: [address] [place] [address] Performed By: #### 5 8410-2, 55221-5 ####[facility] LABCLIA [id number] [place] [address] [facility] RED CELL MORPH Reviewed: see result s of individual morphologies Normal [facility] Comment on above: Order Comment: Speci men Type: BLOOD SPECIMENOrdering Facility: [facility] Address: [address] [place] [address] Performed By: #### 5 8410-2, 92431-6 ####[facility] LABCLIA [id number] [place] [address] [facility] CBC panel Auto (Bld)on 06-16 Erythrocyte distribution width (RBC) [Ratio] 13.1 % Normal 11.5-15.0 [facility] Comment on above: Order Comment: Speci men Type: URINE SPECIMEN [facility] Address: [address] [place] [address] Performed By: #### 2 4356-8 #### [facility] [place] [facility] CLIA [id number] [address] [place] [address] [place] Hematocrit (Bld) [Volume fraction] 40.1 % Normal 36.0-46.0 [facility] Comment on above: Order Comment: Speci men Type: URINE SPECIMEN [facility] Address: [address] [place] [address] Performed By: #### 2 4356-8 #### [facility] [place] [facility] CLIA [id number] [address] [place] [address] [place] Hemoglobin (Bld) [Mass/Vol] 12.7 g/dL Normal 11.5-15.5 [facility] Comment on above: Order Comment: Speci men Type: URINE SPECIMEN [facility] Address: [address] [place] [address] Performed By: #### 2 4356-8 #### [facility] [place] [facility] CLIA [id number] [address] [place] [address] [place] MCH (RBC) [Entitic mass] 32.1 pg Normal 26.0-34.0 [facility] Comment on above: Order Comment: Speci men Type: URINE SPECIMEN [facility] Address: [address] [place] [address] Performed By: #### 2 4356-8 #### [facility] [place] [facility] CLIA [id number] [address] [place] [address] [place] MCHC (RBC) [Mass/Vol] 31.7 g/dL Normal 30.5-36.0 [facility] Comment on above: Order Comment: Speci men Type: URINE SPECIMEN [facility] Address: [address] [place] [address] Performed By: #### 2 4356-8 #### [facility] [place] [facility] CLIA [id number] [address] [place] [address] [place] MCV (RBC) [Entitic vol] 101.3 fL High 80.0-100.0 [facility] Comment on above: Order Comment: Speci men Type: URINE SPECIMEN [facility] Address: [address] [place] [address] Performed By: #### 2 4356-8 #### [facility] [place] [facility] CLIA [id number] [address] [place] [address] [place] Platelet mean volume (Bld) [Entitic vol] 11.3 fL Normal 9.0-12.7 [facility] Comment on above: Order Comment: Speci men Type: URINE SPECIMEN [facility] Address: [address] [place] [address] Performed By: #### 2 4356-8 #### [facility] [place] [facility] CLIA [id number] [address] [place] [address] [place] Platelets (Bld) [#/Vol] 199 10*3/uL Normal 150-400 [facility] Comment on above: Order Comment: Speci men Type: URINE SPECIMEN [facility] Address: [address] [place] [address] Performed By: #### 2 4356-8 #### [facility] [place] [facility] CLIA [id number] [address] [place] [address] [place] RBC (Bld) [#/Vol] 3.96 10*6/uL Normal 3.90-5.20 [facility] Comment on above: Order Comment: Speci men Type: URINE SPECIMEN [facility] Address: [address] [place] [address] Performed By: #### 2 4356-8 #### [facility] CLIA [id number] [address] [place] [address] [place] WBC (Bld) [#/Vol] 16.59 10*3/uL High 3.70-11.00 [facility] Comment on above: Order Comment: Speci men Type: URINE SPECIMEN [facility] Address: [address] [place] [address] Performed By: #### 2 4356-8 #### [facility] CLIA [id number] [address] [place] [address] [place] Erythrocyte distribution width (RBC) [Ratio] 13.0 % Normal 11.5-15.0 [facility] Comment on above: Order Comment: Speci men Type: BLOOD SPECIMENOrdering Facility: [facility] Address: [address] [place] [address] Performed By: #### 5 8410-2, 19552-8 ####[facility] LABCLIA [id number] [place] [address] [facility] [place] Hematocrit (Bld) [Volume fraction] 44.5 % Normal 36.0-46.0 [facility] Comment on above: Order Comment: Speci men Type: BLOOD SPECIMENOrdering Facility: [facility] Address: [address] [place] [address] Performed By: #### 5 8410-2, 53555-7 ####[facility] LABCLIA [id number] [facility] [address] [place] Hemoglobin (Bld) [Mass/Vol] 14.0 g/dL Normal 11.5-15.5 [facility] Comment on above: Order Comment: Speci men Type: BLOOD SPECIMENOrdering Facility: [facility] Address: [address] [place] [address] Performed By: #### 5 8410-2, 16380-2 ####[facility] LABCLIA [id number] [facility] [place] [address] [place] MCH (RBC) [Entitic mass] 32.6 pg Normal 26.0-34.0 [facility] Comment on above: Order Comment: Speci men Type: BLOOD SPECIMENOrdering Facility: [facility] Address: [address] [place] [address] Performed By: #### 5 8410-2, 18879-1 ####[facility] LABCLIA [id number] [facility] [place] [address] [place] [facility] MCHC (RBC) [Mass/Vol] 31.5 g/dL Normal 30.5-36.0 [facility] Comment on above: Order Comment: Speci men Type: BLOOD SPECIMENOrdering Facility: [facility] Address: [address] [place] [address] Performed By: #### 5 8410-2, 23316-0 ####[facility] LABCLIA [id number] [place] [address] [place] MCV (RBC) [Entitic vol] 103.5 fL High 80.0-100.0 [facility] Comment on above: Order Comment: Speci men Type: BLOOD SPECIMENOrdering Facility: [facility] Address: [address] [place] [address] Performed By: #### 5 8410-2, 76067-8 ####[facility] LABCLIA [id number] [facility] [place] [address] [facility] Platelet mean volume (Bld) [Entitic vol] 11.0 fL Normal 9.0-12.7 [facility] Comment on above: Order Comment: Speci men Type: BLOOD SPECIMENOrdering Facility: [facility] Address: [address] [place] [address] Performed By: #### 5 8410-2, 95930-0 ####[facility] LABCLIA [id number] [facility] [place] [address] [facility] Platelets (Bld) [#/Vol] 255 10*3/uL Normal 150-400 [facility] Comment on above: Order Comment: Speci men Type: BLOOD SPECIMENOrdering Facility: [facility] Address: [address] [place] [address] Performed By: #### 5 8410-2, 10364-0 ####[facility] LABCLIA [id number] [facility] [place] [address] [facility] RBC (Bld) [#/Vol] 4.30 10*6/uL Normal 3.90-5.20 [facility] Comment on above: Order Comment: Speci men Type: BLOOD SPECIMENOrdering Facility: [facility] Address: [address] [place] [address] Performed By: #### 5 8410-2, 00528-1 ####[facility] LABCLIA [id number] [facility] [address] [facility] WBC (Bld) [#/Vol] 22.81 10*3/uL High 3.70-11.00 [facility] Comment on above: Order Comment: Speci men Type: BLOOD SPECIMENOrdering Facility: [facility] Address: [address] [place] [address] Performed By: #### 5 8410-2, 39384-9 ####[facility] LABCLIA [id number] [facility] [address] [facility] Noreen [birth year]23 CHANDUN Telephone (MEPRAD) SKIPLISA ([id number]) 1980 F Date Time Provider Department 06/16/23 CHUCKY SELF During your visit today, we recorded the following information about you: Chucky Self MD 06/16/2023 5:00 PM Signed A admission [place] [facility] to [facility] : This 43 yo female with [...] in SF troponin. Cardiology approved admission to [facility]. Allergies As of Date: 06/16/2023 (No Known Allergies) Date Reviewed: 06/16/2023 Reviewed by: Gian Macdonald MD - Fully Assessed Facility-Administered Medications as of 06/16/2023 - NaCl 0.9% iv infusion Problem List As Of Date: 06/16/2023 (None) Encounter Status:Closed by CHUCKY SELF on 06/16/23 Normal [facility] CT BRAIN WO IVCONon 06-16-19 CT BRAIN WO IVCON * * *Final Report* * * DATE OF EXAM: Jun 16 2023 9:44AM [facility] 0504 - CT BRAIN WO IVCON / [...] No CT evidence of acute intracranial abnormalities Lead Business Systems Analyst: [facility] Transcribe Date/Time: Jun 16 2023 9:50A Dictated by : KIM RODRIGUEZ MD This examination was interpreted and the report reviewed and electronically signed by: KIM RODRIGUEZ MD on Jun 16 2023 9:52AM EST [id number] Normal [facility] CT CERVICAL SPINE WO IVCONon 06-16-2023 CT CERVICAL SPINE WO IVCON * * *Final Report* * * DATE OF EXAM: Jun 16 2023 9:44AM [facility] 0505 - CT CERVICAL SPINE WO IVCON [...] Counting reference: Craniocervical junction. Anatomic Variants: None. Art Psychotherapist (topogram) images: Unremarkable. Alignment: Mild levoscoliosis cervical [...] vertebrae with counting from the craniocervical junction. Lead Business Systems Analyst: [facility] Transcribe Date/Time: Jun 16 2023 9:54A Dictated by : KIM RODRIGUEZ MD This examination was interpreted and the report reviewed and electronically signed by: KIM RODRIGUEZ MD on Jun 16 2023 9:58AM EST [id number] Normal [facility] CT FACIAL BONE/GWENDOLYN WO IVCON on 06-16-2023 CT FACIAL BONE/GWENDOLYN WO IVCON * * *Final Report* * * DATE OF EXAM: Jun 16 2023 9:44AM [facility] 0507 - CT FACIAL BONE/GWENDOLYN WO IVCON [...] fracture. Small fluid level right maxillary sinus.. Lead Business Systems Analyst: [facility] Transcribe Date/Time: Jun 16 2023 9:58A Dictated by : KIM RODRIGUEZ MD This examination was interpreted and the report reviewed and electronically signed by: KIM RODRIGUEZ MD on Jun 16 2023 10:02AM EST [id number] Normal [facility] Comprehensive metabolic 2000 panelon 06-16-2023 Albumin [Mass/Vol] 4.5 g/dL Normal 3.9-4.9 [facility] Comment on above: Order Comment: Speci men Type: BLOOD SPECIMENOrdering Facility: [facility] Address: [address] [place] [address] Performed By: #### 2 4323-8, 0-3, ####[facility] LABCLIA [id number] [facility] [place] [address] [place] ALP [Catalytic activity/Vol] 80 U/L Normal 34-123 [facility] Comment on above: Order Comment: Speci men Type: BLOOD SPECIMENOrdering Facility: [facility] Address: [address] [place] [address] Performed By: #### 2 4323-8, 3039-3, ####[facility] LABCLIA [id number] [facility] [place] [address] [place] ALT With P-5'-P [Catalytic activity/Vol] 33 U/L Normal 7-38 [facility] Comment on above: Order Comment: Speci men Type: BLOOD SPECIMENOrdering Facility: [facility] Address: [address] [place] [address] Performed By: #### 2 4323-8, 3039-3, ####[facility] LABCLIA [id number] [facility] [place] [address] [place] Anion gap [Moles/Vol] 19 mmol/L High 9-18 [facility] Comment on above: Order Comment: Speci men Type: BLOOD SPECIMENOrdering Facility: [facility] Address: [address] [place] [address] Performed By: #### 2 4323-8, 3040-3, 87840-8 ####[facility] LABCLIA [id number] [facility] [place] [address] [place] AST With P-5'-P [Catalytic activity/Vol] 41 U/L High 13-35 [facility] Comment on above: Order Comment: Speci men Type: BLOOD SPECIMENOrdering Facility: [facility] Address: [address] [place] [address] Performed By: #### 2 4323-8, 3040-3, ####[facility] LABCLIA [id number] [facility] [place] [address] [place] Bilirubin [Mass/Vol] 0.2 mg/dL Normal 0.2-1.3 [facility] Comment on above: Order Comment: Speci men Type: BLOOD SPECIMENOrdering Facility: [facility] Address: [address] [place] [address] Performed By: #### 2 4323-8, 3039-3, ####[facility] LABCLIA [id number] [facility] [place] [address] [place] Calcium [Mass/Vol] 9.4 mg/dL Normal 8.5-10.2 [facility] Comment on above: Order Comment: Speci men Type: BLOOD SPECIMENOrdering Facility: [facility] Address: [address] [place] [address] Performed By: #### 2 4323-8, 3039-3, ####[facility] LABCLIA [id number] [facility] [place] [address] [place] Chloride [Moles/Vol] 102 mmol/L Normal 97-105 [facility] Comment on above: Order Comment: Speci men Type: BLOOD SPECIMENOrdering Facility: [facility] Address: [address] [place] [address] Performed By: #### 2 4323-8, 0-3, ####[facility] LABCLIA [id number] [facility] [place] [address] [place] CO2 [Moles/Vol] 21 mmol/L Low 22-30 [facility] Comment on above: Order Comment: Speci men Type: BLOOD SPECIMENOrdering Facility: [facility] Address: [address] [place] [address] Performed By: #### 2 4323-8, 3039-3, ####[facility] LABCLIA [id number] [place] [address] [place] Creatinine [Mass/Vol] 0.93 mg/dL Normal 0.58-0.96 [facility] Comment on above: Order Comment: Speci men Type: BLOOD SPECIMENOrdering Facility: [facility] Address: [address] [place] [address] Performed By: #### 2 4323-8, 3, ####[facility] LABCLIA [id number] [place] [address] [place] Creatinine and Glomerular filtration rate.predicted panel (S/P/Bld) 78 mL/min/1.73m??? Normal >=60 [facility] Comment on above: Order Comment: Speci men Type: BLOOD SPECIMENOrdering Facility: [facility] Address: [address] [place] [address] Result Comment: Rosario mated Glomerular Filtration Rate [...] actual GFR. Performed By: #### 2 4323-8, 3039-3, ####[facility] LABCLIA [id number] [place] [address] [place] Glucose [Mass/Vol] 104 mg/dL High 74-99 [facility] Comment on above: Order Comment: Speci tomas Type: BLOOD SPECIMENOrdering Facility: [facility] Address: [address] [place] [address] Result Comment: The [place] Diabetes Association (ADA) provides guidance for cutoff [...] Standards of Medical Care in Diabetes 2016, [place] [employer] Association. Diabetes Care. 2016.39(Suppl 1). Performed By: #### 2 4323-8, 3039-3, ####[facility] LABCLIA [id number] [place] [address] [place] Potassium [Moles/Vol] 5.2 mmol/L High 3.7-5.1 [facility] Comment on above: Order Comment: Macey marin Type: BLOOD SPECIMENOrdering Facility: [facility] Address: [address] [place] [address] Performed By: #### 2 4323-8, 3039-3, ####[facility] LABCLIA [id number] [place] [address] [place] Protein [Mass/Vol] 7.5 g/dL Normal 6.3-8.0 [facility] Comment on above: Order Comment: Macey marin Type: BLOOD SPECIMENOrdering Facility: [facility] Address: [address] [id number] Performed By: #### 2 4323-8, 3039-3, ####[facility] LABCLIA [id number] [place] [address] [place] Sodium [Moles/Vol] 142 mmol/L Normal 136-144 [facility] Comment on above: Order Comment: Macey marin Type: BLOOD SPECIMENOrdering Facility: [facility] Address: [address] [id number] Performed By: #### 2 4323-8, 3040-3, 42737-4 ####[facility] LABCLIA [id number] [place] [address] [place] [facility] Urea nitrogen [Mass/Vol] 13 mg/dL Normal 7- [facility] Comment on above: Order Comment: Speci men Type: BLOOD SPECIMENOrdering Facility: [facility] Address: [address] [place] [address] Performed By: #### 2 4323-8, 3040-3, 23648-8 ####[facility] LABCLIA [id number] [place] [address] [facility] ECG COMPLETEon 06-16-2023 ECG COMPLETE Ventricular Rate : 8 6 BPM Atrial Rate : 86 BPM P-R Interval : 148 ms QRS Duration : 70 ms Q-T Interval : 392 ms QTC Calculation(Bazett) : 469 ms Calculated P [place] : 51 degrees Calculated R [place] : 52 degrees Calculated T [place] : 51 degrees NORMAL SINUS RHYTHM CANNOT RULE OUT ANTERIOR INFARCT , AGE UNDETERMINED ABNORMAL ECG Confirmed by MD VELOZ VINAYAK ([id number]) on 06/18/2023 10:51:28 PM NAME : LISA CHAUDHRY PID : [id number] : 1980 Gender : Female Race : ORD : [id number] Procedure Date : Jun 16 2023 12:08:48 Edit Date : Jun 18 2023 22:51:29 Diagnosis: NORMAL SINUS RHYTHM CANNOT RULE OUT ANTERIOR INFARCT , AGE UNDETERMINED ABNORMAL ECG Confirmed by MD VELOZ VINAYAK ([id number]) on 06/18/2023 10:51:28 PM Test Reason : Chest Pain Location : 150 : [facility] Overread By : MD VELOZ VINAYAK Edited By : MD VELOZ VINAYAK Referred By : , Acquired by : JUAREZ CONNOLLY Normal [facility] ECG COMPLETE Ventricular Rate : 9 8 BPM Atrial Rate : 98 BPM P-R Interval : 156 ms QRS Duration : 66 ms Q-T Interval : 376 ms QTC Calculation(Bazett) : 480 ms Calculated P [place] : 66 degrees Calculated R [place] : 57 degrees Calculated T [place] : 54 degrees POOR DATA QUALITY, INTERPRETATION MAY BE ADVERSELY AFFECTED NORMAL SINUS RHYTHM PROLONGED QT ABNORMAL ECG NO PREVIOUS ECGS AVAILABLE Confirmed by MD VELOZ VINAYAK ([id number]) on 06/18/2023 10:51:17 PM NAME : LISA CHAUDHRY PID : [id number] : 1980 Gender : Female Race : ORD : [id number] Procedure Date : Jun 16 2023 08:38:56 Edit Date : Jun 18 2023 22:51:17 Diagnosis: POOR DATA QUALITY, INTERPRETATION MAY BE ADVERSELY AFFECTED NORMAL SINUS RHYTHM PROLONGED QT ABNORMAL ECG NO PREVIOUS ECGS AVAILABLE Confirmed by MD VELOZ VINAYAK ([id number]) on 06/18/2023 10:51:17 PM Test Reason : od Location : 191 : [facility] Overread By : MD VELOZ VINAYAK Edited By : MD VELOZ VINAYAK Referred By : Torres, Acquired by : HAKAN BELTRAN [facility] ED NOTEon 06-16-2023 ED NOTE HNO ID: [id number] Author: HELEN MINAYA RN Service: Nursing Author Type: Registered Nurse Type: ED Notes Filed: 06/16/2023 18:33 Note Text: Report to [facility] rep [facility] ED NOTE HNO ID: [id number] Author: HELEN MINAYA RN Service: Nursing Author Type: Registered Nurse Type: ED Notes Filed: 06/16/2023 17:16 Note Text: Meal tray ordered for pt [facility] ED NOTE HNO ID: [id number] Author: KONRAD KRAUSE, KATIUSKA Service: ? Author Type: Registered Nurse Type: ED Notes Filed: 06/16/2023 16:50 Note Text: Pt to go to [facility] bed 419-1, phone number for report [phone]. [facility] called for transport eta 90 min [facility] ED NOTE HNO ID: [id number] Author: HELEN MINAYA RN Service: Nursing Author Type: Registered Nurse Type: ED Notes Filed: 06/16/2023 15:14 Note Text: 2LNC discontinued, pt sat 98% RA, Dr Macdonald made aware [facility] ED NOTE HNO ID: [id number] Author: HELEN MINAYA, RN Service: Nursing Author Type: Registered Nurse Type: ED Notes Filed: 06/16/2023 14:56 Note Text: Pt return to bed from using bsc, 02 sat 88% with reliable waveform, 2LNC placed on pt [facility] ED NOTE HNO ID: [id number] Author: HELEN MINAYA, RN Service: Nursing Author Type: Registered Nurse Type: ED Notes Filed: 06/16/2023 14:26 Note Text: Pt talking to her mother on the phone. Hakan [phone] [facility] ED NOTE HNO ID: [id number] Author: KONRAD KRAUSE RN Service: ? Author Type: Registered Nurse Type: ED Notes Filed: 06/16/2023 14:14 Note Text: Meal tray delivered to pt, dr macdonald at bedside speaking with pt regarding plan of care [facility] ED NOTE HNO ID: [id number] Author: KONRAD KRAUSE RN Service: ? Author Type: Registered Nurse Type: ED Notes Filed: 06/16/2023 13:49 Note Text: Meal tray ordered for pt [facility] ED NOTE HNO ID: [id number] Author: KONRAD KRAUSE RN Service: ? Author Type: Registered Nurse Type: ED Notes Filed: 06/16/2023 13:48 Note Text: Patient informed: the name of medication, why we are giving it, possible side effects, what they may expect to feel, and was offered a chance to ask questions, prior to the administration of rocephin [facility] ED NOTE HNO ID: [id number] Author: HELEN MINAYA, KAITUSKA Service: Nursing Author Type: Registered Nurse Type: ED Notes Filed: 06/16/2023 10:27 Note Text: Dr Macdonald at bedside to talk to the patient and her sister [facility] ED NOTE HNO ID: [id number] Author: HELEN MINAYA, KATIUSKA Service: Nursing Author Type: Registered Nurse Type: ED Notes Filed: 06/16/2023 10:27 Note Text: Pt family at bedside, Pt has been given a small bottle of water [facility] ED NOTE HNO ID: [id number] Author: HELEN MINAYA RN Service: Nursing Author Type: Registered Nurse Type: ED Notes Filed: 06/16/2023 10:28 Note Text: Pt sister is asking about test results and plan of care, I let her know that Dr Macdonald would be in to discuss that information with the patient [facility] ED NOTE HNO ID: [id number] Author: HELEN MINAYA, KATIUSKA Service: Nursing Author Type: Registered Nurse Type: ED Notes Filed: 06/16/2023 09:46 Note Text: Upon returning from [facility], pt 02 sat at 88% RA, placed on 2LNC with sat increasing to 99% rapidly, will continue to monitor Normal [facility] ED NOTE HNO ID: [id number] Author: HELEN MINAYA RN Service: Nursing Author [...] NOTEon 06-16-2023 ED PROV NOTE HNO ID: [id number] Author: GIAN MACDONALD MD Service: Emergency Medicine [...] note reviewed. Constitutional: Comments: Patient is writhing [id number] in the stretcher HENT: Head: Normocephalic and [...] type Elevated troponin COVID-19 test performed per [facility] [place] policy for suspected COVID community exposure. MDM [...] including imaging, (more content not included)... Normal [facility] Ethanol SerPl-mCncon 024 Ethanol [Mass/Vol] mg/dL Normal <11 [facility] Comment on above: Order Comment: Speci men Type: URINE SPECIMEN [facility] Address: [address] [place] [address] Performed By: #### 2 4356-8 #### [facility] CLIA [id number] [address] [place] [address] [place] FLUABV+SARS-CoV-2+RSV Pnl Re sp CHANDANA+probeon 06-16-2023 FLUABV+SARS-CoV-2+RS V Pnl Resp CHANDANA+probe COVID 19 RESULT: Not detected The method used is RT-PCR or an equivalent NAAT method. Reference Range(the expected result in uninfected individuals): Not detected INFLUENZA A PCR: Not detected INFLUENZA B PCR: Not detected RSV PCR: Not detected Normal [facility] Comment on above: Performed By: #### 9 5941-1 #### [facility] CLIA [id number] [address] [place] [address] [place] HIGH SENSITIVITY TROPONIN To n 06-16-2023 Troponin T.cardiac High sensitivity method [Mass/Vol] 61 ng/L High <12 [facility] Comment on above: Order Comment: Macey marin Type: URINE SPECIMEN [facility] Address: [address] [place] [address] Result Comment: When assessing risk for acute [...] MACE. Performed By: #### 2 4356-8 #### [facility] CLIA [id number] [address] [place] [address] Troponin T.cardiac High sensitivity method [Mass/Vol] 81 ng/L High <12 [facility] Comment on above: Order Comment: Macey marin Type: URINE SPECIMEN [facility] Address: [address] [place] [address] Result Comment: When assessing risk for acute [...] MACE. Performed By: #### 2 4356-8 #### [facility] CLIA [id number] [address] [place] [address] [facility] Troponin T.cardiac High sensitivity method [Mass/Vol] 69 ng/L High <12 [facility] Comment on above: Order Comment: Speci men Type: BLOOD SPECIMENOrdering Facility: [facility] Address: [address], [place] [address] Result Comment: When assessing risk for acute [...] day MACE. Performed By: #### H STNT ####[facility] LABCLIA [id number] [place] [address] [facility] HISTORY PHYSICALon HISTORY PHYSICAL HNO ID: [id number] Author: KIMBERLEE STAPLES MD Service: Hospital Medicine Author Type: Physician Type: H&P Filed: 06/16/2023 23:52 Note Text: DEPARTMENT OF HOSPITAL MEDICINE HISTORY AND PHYSICAL EXAM SERVICE DATE: 06/16/2023 SERVICE TIME: 6:51 PM Primary Care Physician: No primary care provider on file. NIGHT AND WEEKEND COVERAGE: [place] COVERAGE: Days: [phone], please page attending physician. Nights: [phone], please page [place] [facility] Night coverage pager [phone]. Subjective CHIEF COMPLAINT: drug overdose HPI: This [...] patient was admitted for observation Mother: Hakan [phone] No past medical history on file. No [...] and Airways Line Duration Peripheral 06/16/23 0837 [facility] Short Right Arm 20 Gauge <1 [...] and Non-Pharmaco (more content not included)... Normal [facility] Lactate (Bld) [Moles/Vol]on 06-16-2023 Lactate [Moles/Vol] 1.3 mmol/L Normal 0.5-2.2 [facility] Comment on above: Order Comment: Speci men Type: URINE SPECIMEN [facility] Address: [address] [place] [address] Performed By: #### 2 4356-8 #### [facility] CLIA [id number] [address] [place] [address] [place] Lipase SerPl-cCncon 06-16-19 24 Lipase [Catalytic activity/Vol] 26 U/L Normal 16-61 [facility] Comment on above: Order Comment: Speci men Type: BLOOD SPECIMENOrdering Facility: [facility] Address: [address] [place] [address] Performed By: #### 2 4323-8, 3040-3, 61811-1 ####[facility] LABCLIA [id number] [place] [address] [place] MORPH WAM REFLEXon 4 Anisocytosis Ql (Bld) Present Normal [facility] Comment on above: Order Comment: Speci men Type: URINE SPECIMEN [facility] Address: [address] [place] [address] Performed By: #### 2 4356-8 #### [facility] CLIA [id number] [address] [place] [address] [place] Platelets Estimate (Bld) [#/Vol] Adequate Normal [facility] Comment on above: Order Comment: Speci men Type: URINE SPECIMEN [facility] Address: [address] [place] [address] Performed By: #### 2 4356-8 #### [facility] CLIA [id number] [address] [place] [address] [place] RED CELL MORPH Reviewed: see result s of individual morphologies Normal [facility] Comment on above: Order Comment: Speci men Type: URINE SPECIMEN [facility] Address: [address] [place] [address] Performed By: #### 2 4356-8 #### [facility] CLIA [id number] [address] [place] [address] [place] TOX SCREEN ROUT URon 024 Amphetamines Confirm (U) [Mass/Vol] Negative Normal Negative [facility] Comment on above: Order Comment: Speci men Type: URINE SPECIMENOrdering Facility: [facility] Address: [address] [place] [address] Result Comment: Cuto ff threshold at 1000 ng/mL. Performed By: #### U TOX2 ####[facility] LABCLIA [id number] [place] [address] [facility] [place] BARBITURATES, URINE Negative Normal Negative [facility] Comment on above: Order Comment: Speci men Type: URINE SPECIMENOrdering Facility: [facility] Address: [address] [place] [address] Result Comment: Cuto ff threshold at 200 ng/mL. Performed By: #### U TOX2 ####[facility] LABCLIA [id number] [facility] [place] [address] [place] BENZODIAZEPINES, UR Negative Normal Negative [facility] Comment on above: Order Comment: Speci men Type: URINE SPECIMENOrdering Facility: [facility] Address: [address] [place] [address] Result Comment: Cuto ff threshold at 200 ng/mL. Performed By: #### U TOX2 ####[facility] LABCLIA [id number] [facility] [place] [address] [place] Cannabinoids Screen Ql (U) Negative Normal Negative [facility] Comment on above: Order Comment: Speci men Type: URINE SPECIMENOrdering Facility: [facility] Address: [address] [place] [address] Result Comment: Cuto ff threshold at 50 ng/mL. Performed By: #### U TOX2 ####[facility] LABCLIA [id number] [facility] [place] [address] [place] Cocaine Ql (U) Positive Abnormal Negative [facility] Comment on above: Order Comment: Speci men Type: URINE SPECIMENOrdering Facility: [facility] Address: [address] [place] [address] Result Comment: Cuto ff threshold at 300 ng/mL. Performed By: #### U TOX2 ####[facility] LABCLIA [id number] [facility] [place] [address] [place] Ethanol (U) [Mass/Vol] <11 Normal <11 [facility] Comment on above: Order Comment: Speci men Type: URINE SPECIMENOrdering Facility: [facility] Address: [address] [place] [address] Performed By: #### U TOX2 ####[facility] LABCLIA [id number] [facility] [place] [address] [place] Opiates Screen Ql (U) Negative Normal Negative [facility] Comment on above: Order Comment: Speci men Type: URINE SPECIMENOrdering Facility: [facility] Address: [address] [place] [address] Result Comment: Cuto ff threshold at 300 ng/mL. Performed By: #### U TOX2 ####[facility] LABCLIA [id number] [place] [address] [facility] oxyCODONE cutoff Screen (U) [Mass/Vol] Negative Normal Negative [facility] Comment on above: Order Comment: Speci men Type: URINE SPECIMENOrdering Facility: [facility] Address: [address] [place] [address] Result Comment: Cuto ff threshold at 100 ng/mL. Performed By: #### U TOX2 ####[facility] LABCLIA [id number] [place] [address] [facility] Phencyclidine Ql (U) Negative Normal Negative [facility] Comment on above: Order Comment: Speci men Type: URINE SPECIMENOrdering Facility: [facility] Address: [address] [place] [address] Result Comment: Cuto ff threshold at 25 ng/mL. Performed By: #### U TOX2 ####[facility] [id number] [place] [address] [facility] Urinalysis complete panel (U )on 06-16-2023 Bacteria LM.HPF (Urine sed) [#/Area] Rare Abnormal None Seen [facility] Comment on above: Order Comment: Speci men Type: URINE SPECIMEN Ordering Facility: [facility] Address: [address] [place] [address] Performed By: #### 2 4356-8 #### [facility] CLIA [id number] [address] [place] [address] [facility] Bilirubin Ql (U) Negative Normal Negative [facility] Comment on above: Order Comment: Speci men Type: URINE SPECIMEN Ordering Facility: [facility] Address: [address] [place] [address] Performed By: #### 2 4356-8 #### [facility] CLIA [id number] [address] [place] [address] [facility] Clarity (Unsp spec) Slightly Cloudy Abnormal Clear [facility] Comment on above: Order Comment: Speci men Type: URINE SPECIMEN Ordering Facility: [facility] Address: [address] [place] [address] Performed By: #### 2 4356-8 #### [facility] CLIA [id number] [address] [place] [address] [facility] Color (U) Dark Yellow Abnormal Yellow [facility] Comment on above: Order Comment: Speci men Type: URINE SPECIMEN Ordering Facility: [facility] Address: [address] [place] [address] Performed By: #### 2 4356-8 #### [facility] CLIA [id number] [address] [place] [id number] [facility] Epithelial cells LM.HPF (Urine sed) [#/Area] Few Normal [facility] Comment on above: Order Comment: Speci men Type: URINE SPECIMEN Ordering Facility: [facility] Address: [address] [place] [address] Performed By: #### 2 4356-8 #### [facility] CLIA [id number] [address] [place] [address] [facility] Glucose Test strip (U) [Mass/Vol] Trace Abnormal Negative [facility] Comment on above: Order Comment: Speci men Type: URINE SPECIMEN Ordering Facility: [facility] Address: [address] [place] [address] Performed By: #### 2 4356-8 #### [facility] CLIA [id number] [address] [place] [address] [facility] Hemoglobin Ql (U) 3+ Abnormal Negative [facility] Comment on above: Order Comment: Speci men Type: URINE SPECIMEN Ordering Facility: [facility] Address: [address] [place] [address] Performed By: #### 2 4356-8 #### [facility] CLIA [id number] [address] [place] [address] [place] Hyaline casts (Urine sed) [#/Area] 1-3 /LPF Abnormal 0 /LPF [facility] Comment on above: Order Comment: Speci men Type: URINE SPECIMEN Ordering Facility: [facility] Address: [address] [place] [address] Performed By: #### 2 4356-8 #### [facility] CLIA [id number] [address] [place] [address] [facility] Ketones Ql (U) 1+ Abnormal Negative [facility] Comment on above: Order Comment: Speci men Type: URINE SPECIMEN Ordering Facility: [facility] Address: [address] [place] [address] Performed By: #### 2 4356-8 #### [facility] CLIA [id number] [address] [place] [address] [facility] Leukocyte esterase Test strip Ql (U) Negative Normal Negative [facility] Comment on above: Order Comment: Speci men Type: URINE SPECIMEN Ordering Facility: [facility] Address: [address] [place] [address] Performed By: #### 2 4356-8 #### [facility] CLIA [id number] [address] [place] [address] [place] Nitrite Ql (U) Negative Normal Negative [facility] Comment on above: Order Comment: Speci men Type: URINE SPECIMEN Ordering Facility: [facility] Address: [address] [place] [address] Performed By: #### 2 4356-8 #### [facility] CLIA [id number] [address] [place] [address] [facility] pH (U) 5.5 [pH] Normal 5.0-8.0 [facility] Comment on above: Order Comment: Speci men Type: URINE SPECIMEN Ordering Facility: [facility] Address: [address] [place] [address] Performed By: #### 2 4356-8 #### [facility] CLIA [id number] [address] [place] [address] [place] Protein (U) [Mass/Vol] 2+ Abnormal Negative [facility] Comment on above: Order Comment: Speci men Type: URINE SPECIMEN Ordering Facility: [facility] Address: [address] [place] [address] Performed By: #### 2 4356-8 #### [facility] CLIA [id number] [address] [place] [id number] [place] [address] RBC LM.HPF (Urine sed) [#/Area] 3-5 /HPF Abnormal 0-3 /HPF [facility] Comment on above: Order Comment: Speci men Type: URINE SPECIMEN Ordering Facility: [facility] Address: [address] [place] [address] Performed By: #### 2 4356-8 #### [facility] CLIA [id number] [address] [place] [address] [place] Specific gravity (U) [Rel density] >=1.030 High 1.005-1.030 [facility] Comment on above: Order Comment: Speci men Type: URINE SPECIMEN Ordering Facility: [facility] Address: [address] [place] [address] Performed By: #### 2 4356-8 #### [facility] CLIA [id number] [address] [place] [address] Urobilinogen Ql (U) 0.2 EU/dL Normal 0.2-1.0 EU/dL [facility] Comment on above: Order Comment: Speci men Type: URINE SPECIMEN Ordering Facility: [facility] Address: [address] [place] [address] Performed By: #### 2 4356-8 #### [facility] CLIA [id number] [address] [place], [place] [id number] [place] WBC LM.HPF (Urine sed) [#/Area] 6-10 /HPF Abnormal 0-5 /HPF [facility] Comment on above: Order Comment: Speci men Type: URINE SPECIMEN Ordering Facility: [facility] Address: [address] [place] [address] Performed By: #### 2 4356-8 #### [facility] CLIA [id number] [address] [place] [address] [facility] XR CHEST 1V FRONTALon 2023 XR CHEST [...] semiupright portable exam. Correlation with clinical symptoms Lead Business Systems Analyst: SURENDRA Transcribe Date/Time: Jun 16 2023 10:02A Dictated by : KIM RODRIGUEZ MD This examination was interpreted and the report reviewed and electronically signed by: KIM RODRIGUEZ MD on Jun 16 2023 10:03AM EST [id number] Normal [facility] CBC panel Auto (Bld)on 07-10 Erythrocyte distribution width (RBC) [Ratio] 14.1 % 11.5 - 14.5 % [facility] Hematocrit (Bld) [Volume fraction] 44.1 % 35.0 - 47.0 % [facility] Hemoglobin (Bld) [Mass/Vol] 14.7 g/dL 11.7 - 16.0 g/dL [facility] Interpretation and review of laboratory results Normal [facility] MCH (RBC) [Entitic mass] 31.1 pg 26.0 - 34.0 pg [facility] MCHC (RBC) [Mass/Vol] 33.3 % 32.0 - 36.0 % [facility] MCV (RBC) [Entitic vol] 93.3 fL 80.0 - 98.0 fL [facility] [employer] Platelet mean volume (Bld) [Entitic vol] 8.7 fL 7.4 - 12.4 fL [facility] [employer] Platelets (Bld) [#/Vol] 278 10*3/uL 140 - 440 10*3/uL [facility] RBC (Bld) [#/Vol] 4.73 10*6/uL 3.8 - 5.20 10*6/uL [facility] WBC (Bld) [#/Vol] 10.0 10*3/uL 3.6 - 10.7 10*3/uL [facility] - Chemistry and C hemistry - challengeOrdered By: Margarita Grewal on 07-10-2022 Beta HCG ( test) Ql Negative Negative [facility] Comment on above: Please note: Very di lute urine specimens, as indicated by a low specific gravity, may not contain statement services representative levels of hCG. If is still suspected, a first morning urine specimen should be collected 48 hours later and tested. Beta HCG ( test) Ql (U) is the most common reason for HCG in urine, although choriocarcinoma, hydatidiform mole, and certain nontrophoblastic malignancies also result in detectable urinary HCG levels. Sensitivity = 20mIU/mL. [facility] No Panel InformationOrdered By: Margarita Grewal on 07-10-2022 [facility] Basophil percentageOrdered B y: Dr. Sauceda on 07-03-2022 Basophil percentage TNP [facility] Comment on above: Test not performed No Panel InformationOrdered By: Dr. Sauceda on 07-03-2022 Addendum Document Comment . [facility] Comment on above: The quantitative ran ge of this assay is 15 IU/mL to 100million IU/mL.Performed at: [address] [id number] Director: Lenin Christensen MD, Phone: [phone] Serum or plasma hepatitis C virus RNA measurement by probe and target amplification mOrdered By: Dr. Sauceda on 07-03-2022 HCV RNA CHANDANA+probe Qn Not detected . [facility] HCG ( test) Ql (U)o n 06-28-2022 Beta HCG ( test) Ql (U) . [facility] NEGATIVE QC Pass [facility] POSITIVE QC Pass [facility] Preg Test, Ur Negative Negative [facility] Absolute lymphocyte countOrd ered By: Konrad Hampton on 06-20-2022 Lymphocytes Auto (Unsp spec) [#/Vol] 3.12 10*3/uL 0.83-4.51 [facility] Basophil percentageOrdered B y: Konrad Hampton on 06-20-2022 Basophil percentage TNP [facility] Comment on above: Test not performed Basophils/100 WBC (Bld) 0.5 % 0-1 [facility] Bilirubin [Mass/Vol] 0.20 mg/dL 0.20-1.00 [facility] Comment on above: For patients on eltr ombopag therapy, use of Dimension [place] TBIL is not recommended. Chloride [Moles/Vol] 110 mmol/L 98-107 [facility] Eosinophils/100 WBC (Bld) 3.0 % 0-5 [facility] Glucose [Mass/Vol] 98 mg/dL 74-106 [facility] Neutrophils (Bld) [#/Vol] 4.9 10*3/uL 2.0-7.7 [facility] Neutrophils/100 WBC (Bld) 53.0 % 47-70 [facility] Potassium [Moles/Vol] 4.0 mmol/L 3.5-5.1 [facility] Protein [Mass/Vol] 7.7 g/dL 6.4-8.2 [facility] Sodium [Moles/Vol] 140 mmol/L 136-145 [facility] WBC (Bld) [#/Vol] 9.2 10*3/uL 4.4-11.0 [facility] Blood erythrocytes count (nu mber/volume)Ordered By: Konrad Hampton on 06-20-2022 RBC (Bld) [#/Vol] 4.51 10*6/uL 4.2-5.4 [facility] Blood hemoglobin measurement (mass/volume)Ordered By: Konrad Hampton on 06-20-2022 Hemoglobin (Bld) [Mass/Vol] 14.0 g/dL 12.0-15.0 [facility] Blood lymphocytes/100 leukoc ytesOrdered By: Konrad Hampton on 06-20-2022 Lymphocytes/100 WBC (Bld) 33.8 % 19-41 [facility] Blood monocytes/100 leukocyt esOrdered By: Konrad Hampton on 06-20-2022 Monocytes/100 WBC (Bld) 9.0 % 0-10 [facility] Blood platelet mean volumeOr dered By: Konrad Hampton on 06-20-2022 Platelet mean volume (Bld) [Entitic vol] 11.3 fL 6.2-12.0 [facility] Determination of erythrocyte mean corpuscular volume (MCV)Ordered By: Konrad Hampton on 06-20-2022 MCV (RBC) [Entitic vol] 96.0 fL 81-99 [facility] Hematocrit Auto (Bld) [Volum e fraction]Ordered By: Konrad Hampton on 06-20-2022 Hematocrit (Bld) [Volume fraction] 43.3 % 37-47 [facility] Laboratory - Chemistry and C hemistry - challengeOrdered By: Konrad Hampton on 06-20-2022 ALP [Catalytic activity/Vol] 77 U/L 45-117 [facility] ALT [Catalytic activity/Vol] 36 U/L 13-56 [facility] CO2 [Moles/Vol] 25.0 mmol/L 21.0-32.0 [facility] Globulin (S) [Mass/Vol] 4.0 g/dL 2.2-4.2 [facility] Urea nitrogen/Creatinine [Mass ratio] 19.5 mg/mg 10-20 [facility] Laboratory - Hematology and Cell countsOrdered By: Konrad Hampton on 06-20-2022 Erythrocyte distribution width (RBC) [Entitic vol] 47.5 fL 35.1-43.9 [facility] Erythrocyte distribution width (RBC) [Ratio] 13.3 % 11.6-14.6 [facility] Immature granulocytes/100 WBC (Bld) 0.700 % 0.0-0.9 [facility] Comment on above: IG% - Immature Granu locytes (promyelocytes, myelocytes and metamyelocytes) > 1% indicates that a LEFT SHIFT is Present. MCH (RBC) [Entitic mass] 31.0 pg 27.0-32.0 [facility] Nucleated RBC/100 WBC (Bld) [Ratio] 0 % 0-5 [facility] Laboratory - Miscellaneous t estsOrdered By: Konrad Hampton on 06-20-2022 Service comment (Unsp spec) [Interp] Comment . [facility] Comment on above: This test was develo ped and its performance characteristicsdetermined by [facility]. It has not been cleared or approvedby the U.S. Food and Drug Administration.The FDA has determined that such clearance or approval isnot necessary. This test is used for clinical purposes. Itshould not be regarded as investigational or for research.Performed at: [address] [id number] Director: Lenin Christensen MD, Phone: [phone] MCHC Auto (RBC) [Mass/Vol]Or dered By: Konrad Hampton on 06-20-2022 MCHC (RBC) [Mass/Vol] 32.3 g/dL 32-36 [facility] No Panel InformationOrdered By: Kornad Hampton on 06-20-2022 Addendum Document Comment . [facility] Comment on above: The quantitative ran ge of this assay is 15 IU/mL to 100million IU/mL. Estimated GFR (MDRD) Amer 114 mL/min >60 [facility] Comment on above: GFR Calc Estimated GFR (MDRD) Non-Af Amer 94 mL/min >60 [facility] Comment on above: Non- GFR Calc Hepatitis C Genotype TNP [facility] Comment on above: Test not performedTe st not performed. Unable to provide an HCV genotype forthis sample. The most common reason an HCV genotype cannotbe determined is due to a viral load of <1,000 IU/mL, ormore rarely, the presence of an untypable HCV genotype. Platelets bldOrdered By: Severo Hampton on 06-20-2022 Platelets (Bld) [#/Vol] 300 10*3/uL 150-450 [facility] Serum or plasma albumin jax urement (mass/volume)Ordered By: Konrad Hampton on 06-20-2022 Albumin [Mass/Vol] 3.7 g/dL 3.2-5.0 [facility] Serum or plasma albumin/glob ulin mass ratioOrdered By: Konrad Hampton on 06-20-2022 Albumin/Globulin [Mass ratio] 0.9 {ratio} 0.9-2.4 [facility] Serum or plasma calcium jax urement (mass/volume)Ordered By: Konrad Hampton on 06-20-2022 Calcium [Mass/Vol] 9.3 mg/dL 8.5-10.1 [facility] Serum or plasma creatinine m easurement (mass/volume)Ordered By: Konrad Hampton on 06-20-2022 Creatinine [Mass/Vol] 0.72 mg/dL 0.55-1.02 [facility] Comment on above: The validity of the calculated GFR & GFRAA in patients over 70 years has not been determined. Clinical correlation is essential. Serum or plasma hepatitis C virus RNA measurement by probe and target amplification mOrdered By: Konrad Hampton on 06-20-2022 HCV RNA CHANDANA+probe Qn Not detected . [facility] Serum or plasma urea nitroge n measurement (mass/volume)Ordered By: Konrad Hampton on 06-20-2022 Urea nitrogen [Mass/Vol] 14 mg/dL 7-18 [facility] Thin prep Papanicolaou smear with manual screeningOrdered By: Konrad Hampton on 06-20-2022 Thin prep Papanicolaou smear with manual screening 34 U/L 15-37 [facility] Thin prep Papanicolaou smear with manual screening 5 5-15 [facility] HCG ( test) Ql (U)o n 06-07-2022 Beta HCG ( test) Ql (U) . [employer] NEGATIVE QC Pass [employer] POSITIVE QC Pass [employer] Preg Test, Ur Negative Negative [facility] [employer] US Pelvis transvaginalon Simple appearing left ovarian cyst with possibel irregular borders. Endometrium is echogenic, uniform and thin measuring 1.37mm No free fluid or adnexal masses seen. Follow up as clinically indicated. Patient is scheduled to see Dr. Worley following ultrasound 06/07/2022. *Ultrasound cannot detect all pelvic or DRY PRESS OPERATOR HELPER abnormalities and normal findings cannot guarantee the absence of a problem.* [facility] Gynecological Report (Signed Final 05/07/2022 02:00 pm) PATIENT INFO: ID #: [id number] : [birth year] (42 yrs)(F) Name: LISA CHAUDHRY Visit Date: 05/06/2022 09:01 am PERFORMED BY: Attending: Nathan Brooks MD Performed By: Kerri Soto RDMS Referred By: SHANTE WORLEY MD Location: [facility] [employer] SUPERVISOR [place] Visit Type: [facility] [employer] SUPERVISOR SERVICE(S) PROVIDED: Extermination Inspector Transvaginal [id number] INDICATIONS: Abnormal uterine and vaginal bleeding, N93.9 unspecified LMP January 2022 TV DRY PRESS OPERATOR HELPER ultrasound TECHNIQUE/SCAN QUALITY: Technique: Transvaginal Approach COMPARISON: [...] 05/07/2022 02:00 pm) PATIENT INFO: ID #: [id number] : [birth year] (42 yrs)(F) Name: LISA CHAUDHRY Visit Date: 05/06/2022 09:01 am PERFORMED BY: Attending: Nathan Brooks MD Performed By: Kerri Soto RDMS Referred By: SHANTE WORLEY MD Location: [facility] [employer]ATING AND PUMPING SUPERVISOR Carlyn Visit Type: [facility] [employer]ATING AND PUMPING SUPERVISOR SERVICE(S) PROVIDED: Extermination Inspector Transvaginal [id number] INDICATIONS: Abnormal uterine and vaginal bleeding, N93.9 unspecified LMP January 2022 TV DRY PRESS OPERATOR HELPER ultrasound TECHNIQUE/SCAN QUALITY: Technique: Transvaginal Approach COMPARISON: [...] 06/07/2022. *Ultrasound cannot detect all pelvic or DRY PRESS OPERATOR HELPER abnormalities and normal findings cannot guarantee the absence of a problem.* [employer] US Pelvis transvaginalOrdere d By: Nathan Brooks on 05-07-2022 [employer] Work Phone: US Pelvis transvaginalon Radiology Study observation (narrative) [facility] DBT Breast - bilateral scree ningon 05-02-2022 No mammographic evid ence of malignancy. ASSESSMENT: Category 1 Negative RECOMMENDATION: Routine screening mammogram in 1 year. Bilateral Report Dictated on Electronically Signed By: Faith Deluca Electronically Signed Date/Time: 05/02/2022 3:01 PM [facility] Patient Name: LISA CHAUDHRY Exam Date/Time: 05/02/2022 11:30 Procedure: BI MAMMOGRAM SCREENING TOMOSYNTHESIS BILATERAL Ordering Provider: WORLEY EILEEN Reason For Exam: Image views: 2D Bilateral CC and MLO views were acquired. 3D Bilateral CC and MLO views were acquired. Images were reviewed with CAD. Markings on images: BB's = Nipples; skin lesions Open [place] = Palpable Line = Scar COMPARISON: 01/21/2019 TISSUE DENSITY: BIRADS C - The breast tissue is heterogeneously dense, which could obscure underlying abnormalities. FINDINGS: No suspicious masses, architectural distortions or suspiciously clustered microcalcifications are identified. There is no evidence of skin thickening or nipple retraction. There are no significant changes when compared with prior studies. [facility] Faith Deluca MD - 05/02/2022 Patient Name: LISA CHAUDHRY Exam Date/Time: 05/02/2022 11:30 Procedure: BI MAMMOGRAM SCREENING TOMOSYNTHESIS BILATERAL Ordering Provider: WORLEY EILEEN Reason For Exam: Image views: 2D Bilateral CC and MLO views were acquired. 3D Bilateral CC and MLO views were acquired. Images were reviewed with CAD. Markings on images: BB's = Nipples; skin lesions Open [place] = Palpable Line = Scar COMPARISON: 01/21/2019 [...] Electronically Signed Date/Time: 05/02/2022 3:01 PM EST [employer] Radiology Study observation (narrative) [employer] [facility] DBT Breast - bilateral scree ningOrdered By: Faith Deluca on 05-02-2022 [employer] Work Phone: [facility] 12-19-2021 S. pyogenes Ag Ql (Throat) Negative [facility] Phone: Office Visit (Urgent Care)on 12-19-2021 Follow-up visit Diagnoses/Problems Assessed Acute frontal sinusitis (461.1) (J01.10) 2+ pitting edema (782.3) (R60.9) Orders Acute frontal sinusitis Start: Cefdinir 300 MG Oral Capsule; TAKE 1 CAPSULE EVERY 12 HOURS DAILY Rx By: Darrell Mcgowan; Dispense: 10 Days ; #:20 Capsule; Refill: 0;For: Acute frontal sinusitis; LA = N; Sent To: [facility] Sore throat IO Rapid Strep; Status:Resulted - Requires Verification,Retrospective Authorization; Done: [id number] 07:45PM Performed:In Office; Due:[id number]; Last Updated By:Chinyere Ramos; 12/19/2021 7:45:16 PM;Ordered; For:Sore throat; Ordered By:Darrell Mcgowan; Patient Discussion/Summary Sinusitis. We will treat with Omnicef. Pitting edema. Follow-up with your doctor soon as possible. Cjqt-nsz-tfnqols medications as needed. Provider Impressions Sinusitis. We will treat with Omnicef. Pitting edema. Follow-up with your doctor soon as possible. Cywu-jjl-gszjlqg medications as needed. Chief Complaint Chief Complaints [...] of breath. Patient states partial relief with yrwk-kjt-uplwazf medications. Patient reports that she has had [...] 10yrs History (more content not included)... Normal [facility] PHQ-2 [facility] 12-19-2021 Adult depression screening assessment No [facility] Work Phone: Fall risk assessment a) No falls within the last year [facility] Work Phone: Office Visit (Primary Care F [...] to visit. Spent 11 minutes with patient csnm-ls-ckqv via virtual visit. Nausea and vomiting (787.01) [...] Dysuria; [place] = N; Verified Transmission to [facility]; Last Updated By: [employer]; 03/08/2021 4:15:43 PM IO UA (automated w/o microscopy); Status:Canceled; Perform:In Office; Due:[id number];Ordered; For:Dysuria; Ordered By:Herlinda Hoyt; Mild intermittent asthma without complication Start: Nebulizer; USE DIRECTED Rx By: Herlinda Hoyt; Dispense: 0 Days ; #:1 Each; Refill: 0;For: Mild intermittent asthma without complication; [place] = N; Verified Transmission to [facility]; Last Updated By: [employer]; 03/08/2021 4:46:07 PM Nausea and vomiting Start: Ondansetron 4 MG Oral Tablet Disintegrating; TAKE 1 TABLET 4 times daily PRN nausea Rx By: Herlinda Hoyt; Dispense: 0 Days ; #:20 Tablet; Refill: 0;For: Nausea and vomiting; LA = N; Verified Transmission to [facility]; Last Updated By: [employer]; 03/08/2021 4:15:52 PM Suspected COVID-19 virus infection Coronavirus 2019 RNA by PCR, Symptomatic; Status:Active; Requested for:08Mar2021; Perform:Lab Services - Lab To Draw (Non-Blood Test); Due:[id number];Ordered; For:Suspected COVID-19 virus infection; Ordered By:Herlinda Hoyt; ? : No RESIDENT IN CONGREGATE CARE SETTING? : No ICU? : No HOSPITALIZED (OR PLANNED TO BE ADMITTED)? : No EMPLOYED IN HEALTHCARE? : No FIRST COVID NASAL SWAB TEST? : Yes Symptom 2 : Cough Symptom 1 : Fever DATE OF SYMPTOM ONSET? : [id number] IS THE PATIENT SYMPTOMATIC DEFINED BY THE [...] positive for covid today. History of Present IllnessThimarko is a 40yo female who presents today [...] but no (more content not included)... Normal [employer] Office Visiton 01-30-2021 Follow-up visit Diagnoses/Problems History [...] hepatic coma Complete Blood Count; Status:Active; Requested for:[id number]; HCV RNA By PCR [Viral Load]; Status:Active; Requested for:[id number]; Hepatic Function Panel; Status:Active; Requested for:[id number]; PT/INR; Status:Active; Requested for:[id number]; Patient Discussion/Summary I ordered labs to further evaluate her hepatitis and she states she does not want to do those right now until she is in remission. Her medications were refilled for asthma medicine and migraine. Chief Complaint Pt presents to establish new PCP; previous pt of Dr. Nicki Nguyen, [facility]; Asthma History of Present IllnessShe presents today [...] drug depen (more content not included)... Normal [employer] Tobacco Screening.on 021 Fall risk assessment a) No falls within the last year [facility] Work Phone: Tobacco use status CPHS a) Yes [facility] Work Phone: ACETAMINOPHEN LEVELOrdered B y: Pamela Lopez on 08-11-2020 Acetaminophen Level <10.0 10.0 - 3 0.0 ug/mL [employer] Work Phone: Acetaminophenon 08-11-2020 Acetaminophen [Mass/Vol] ug/mL Normal 10.0-30.0 [facility] Comment on above: Performed By: #### S AL33, BMP3, ETOH4, HEMDF, ACET4 #### [facility] [address] [place] [phone] Basic Metabolic Panelon 07-21 Calcium [Mass/Vol] 9.7 mg/dL Normal 8.4-10.4 [facility] Comment on above: Performed By: #### S AL33, BMP3, ETOH4, HEMDF, ACET4 #### [place] [address] [place] [place], [place] Glucose [Mass/Vol] 122 mg/dL High 70-100 [facility] Comment on above: Performed By: #### S AL33, BMP3, ETOH4, HEMDF, ACET4 #### [place] [address] [address] [place], [place] Anion gap [Moles/Vol] 9 mmol/L Normal 3-13 [facility] Comment on above: Performed By: #### S AL33, BMP3, ETOH4, HEMDF, ACET4 #### [place] [address] [address] [place], [place] CO2 [Moles/Vol] 24 mmol/L Normal 22-30 [facility] Comment on above: Performed By: #### S AL33, BMP3, ETOH4, HEMDF, ACET4 #### [place] [address] [place], [place] Creatinine [Mass/Vol] 0.46 mg/dL Low 0.52-1.25 [facility] Comment on above: Performed By: #### S AL33, BMP3, ETOH4, HEMDF, ACET4 #### [place] [address] [address] [place], [place] eGFR OTHER > 90.0 Normal >60 [facility] Comment on above: Result Comment: KDIG O [...] S AL33, BMP3, ETOH4, HEMDF, ACET4 #### [place] [address] [place], [place] GFR/1.73 sq M.predicted among blacks MDRD (S/P/Bld) [Vol rate/Area] mL/min/{1.73_m2} Normal >60 [facility] Comment on above: Performed By: #### S AL33, BMP3, ETOH4, HEMDF, ACET4 #### [place] [address] [address] [place], [place] Urea nitrogen [Mass/Vol] 9 mg/dL Normal 7-20 [facility] Comment on above: Performed By: #### S AL33, BMP3, ETOH4, HEMDF, ACET4 #### [place] [address] [place], [place] Potassium [Moles/Vol] 4.0 mmol/L Normal 3.5-5.1 [facility] Comment on above: Performed By: #### S AL33, BMP3, ETOH4, HEMDF, ACET4 #### [place] [address] [place], [place] Chloride [Moles/Vol] 106 mmol/L Normal 98-107 [facility] Comment on above: Performed By: #### S AL33, BMP3, ETOH4, HEMDF, ACET4 #### [place] [address] [address] [place], [place] Sodium [Moles/Vol] 140 mmol/L Normal 135-145 [facility] Comment on above: Performed By: #### S AL33, BMP3, ETOH4, HEMDF, ACET4 #### [address] [address] [place], [place] Basic Metabolic PanelOrdered By: Pamela Lopez on 08-11-2020 Anion gap [Moles/Vol] 9 mmol/L 3 - 13 mmol/L [facility] Work Phone: Calcium [Mass/Vol] 9.7 mg/dL 8.4 - 10. 4 mg/dL [facility] Work Phone: [phone] Chloride [Moles/Vol] 106 mmol/L 98 - 10 7 mmol/L [facility] Work Phone: [phone] CO2 [Moles/Vol] 24 mmol/L 22 - 30 mmol/L [facility] Work Phone: [phone] Creatinine [Mass/Vol] 0.46 mg/dL Low 0.52 - 1.25 mg/dL [facility] Work Phone: [phone] EGFR IF NonAfrican Gambian >90.0 >60 mL/min [facility] Work Phone: [phone] Comment on above: KDIGO guidelines pro vide [...] rate/Area] mL/min/{1.73_m2} >60 mL/min [facility] Work Phone: [phone] Glucose [Mass/Vol] 122 mg/dL High 70 - 100 mg/dL [facility] Work Phone: [phone] Potassium [Moles/Vol] 4.0 mmol/L 3.5 - 5.1 mmol/L [facility] Work Phone: [phone] Sodium [Moles/Vol] 140 mmol/L 135 - 145 mmol/L [facility] Work Phone: [phone] Urea nitrogen (BldV) [Mass/Vol] 9 mg/dL 7 - 20 mg/dL [facility] Work Phone: Complete Urinalysison 2020 Bilirubin,Urine Negative Normal Negative [facility] Comment on above: Result Comment: . Performed By: #### C UA2JASMIN, DRGA4 #### [employer] [address] [place], [place] Glucose Ql (U) Normal Normal Normal (<70) [facility] [employer] Comment on above: Result Comment: . Performed By: #### C UA2, KIARRAU, DRGA4 #### [employer] [facility] [address] [place], [place] Ketone,Urine 10 mg/dL Abnormal Negative [facility] Comment on above: Result Comment: . Performed By: #### C UA2, KIARRAU, DRGA4 #### [place] [address] [address], [place] Leukocytes,Urine Negative Normal Negative [facility] Comment on above: Result Comment: . Performed By: #### C UA2, KIARRAU, DRGA4 #### [facility] [employer] [place] [address] [address] [place], [place] Nitrites,Urine Negative Normal Negative [facility] Comment on above: Result Comment: . Performed By: #### C UA2, KIARRAU, DRGA4 #### [facility] [employer] [place] [address] [address] [place], [place] pH,Urine 8.0 Normal 5.0-8.0 [facility] [employer] Comment on above: Result Comment: . Performed By: #### C UA2, KIARRAU, DRGA4 #### [employer] [place] [address] [address] [place], [place] Specific [place],Urine 1.013 Normal 1.005 - 1.030 [facility] [employer] Comment on above: Result Comment: . Performed By: #### C UA2, KIARRAU, DRGA4 #### [employer] [place] [address] [address] [place], [place] Complete UrinalysisOrdered B y: Pamela Lopez on 08-11-2020 Appearance (U) Turbid Abnormal Clear [facility] Work Phone: Comment on above: . Result Comment: . Performed By: #### C JASMIN BECKFORD, DRGA4 #### [place] [address] [place], [place] Color (U) Light-Yellow Normal Lt. Yellow [facility] Work Phone: Comment on above: . Result Comment: . Performed By: #### C JASMIN BECKFORD, DRGA4 #### [place] [address] [place], [place] Occult Blood,Urine Negative Normal Negative [facility] Work Phone: Comment on above: . Result Comment: . Performed By: #### C JASMIN BECKFORD, DRGA4 #### [place] [address] [address], [place] Total Protein, Urine Negative Normal Negative [facility] Work Phone: Comment on above: . Result Comment: . Performed By: #### JASMIN BURKS, DRGA4 #### [place] [address] [place], [place] Urobilinogen, Urine Normal Normal Normal (0-1) [facility] Work Phone: Comment on above: . Result Comment: . Performed By: #### JASMIN BURKS DRGA4 #### [place] [address] [place], [place] Drugs of Abuseon 08-11-2020 Amphetamines, Ur Negative Normal [facility] Comment on above: Performed By: #### JASMIN BURKS DRGA4 #### [place] [address] [address], [place] Phencyclidine (PCP), Ur Negative Normal [facility] Comment on above: Result Comment: The expected [...] under separate order. Performed By: #### C UA2, FENTU, DRGA4 #### [facility] [address] [place], [place] Methadone, Ur Negative Normal [facility] Comment on above: Performed By: #### C UA2, FENTU, DRGA4 #### [facility] [address] [place], [place] Cocaine, Ur Negative Normal [facility] Comment on above: Performed By: #### C UA2, FENTU, DRGA4 #### [place] [address] [place], [place] Opiates, Ur Negative Normal [facility] Comment on above: Performed By: #### C UA2, FENTU, DRGA4 #### [place] [address] [place], [place] Barbiturates, Ur Negative Normal [facility] Comment on above: Performed By: #### C UA2, FENTU, DRGA4 #### [place] [address] [place], [place] Benzodiazepines, Ur Negative Normal [facility] Comment on above: Performed By: #### C UA2, FENTU, DRGA4 #### [place] [address] [place], [place] Oxycodone/Oxymorphin e,Ur Negative Normal [facility] Comment on above: Performed By: #### C UA2, FENTU, DRGA4 #### [facility] [address] [place], [place] ED Provider Noteon ED Provider Note [facility] EMERGENCY DEPT eMERGENCY dEPARTMENT eNCOUnter Pt Name: Lisa Chaudhry Birthdate 1980 Date of evaluation: 08/11/2020 Provider: Pamela Lopez PA-C CHIEF COMPLAINT Chief Complaint Patient presents with ? Drug Overdose patient to ED11 with potential overdose on unknown substance. patient sent from [facility], patient noted to have dilated pupils and sleepy. patient admits to using $50 worth of Heroin yesterday at 1200. patient denies using any substance since then. patient was found by [place] emergency department staff to have multiple suboxone patches on [...] of possible overdose. Patient is here from [facility]. States the nurse gave her medicine, a pill, a has been very sleepy since. Feels nauseous since with out emesis. [facility] concerned of possible other substance ingestion due to drowsy state and dilated pupils. She states yesterday she used Heroin but hasn't used any today. Prior to going into [facility] used $50 of Heroin daily. Today was found by staff with 3 Suboxone films on her person. Nursing Notes were reviewed. REVIEW OF SYSTEMS (2+ forlevel 4; 10+ for level 5) Review of Systems at least 10 systems reviewed and otherwise acutely negative except as stated in [place]. PAST MEDICAL HISTORY Past Medical History: Diagnosis [...] Physical ac (more content not included)... Normal [facility] ED Provider Note Emergency Department Encounter [facility] EMERGENCY DEPT Patient: Lisa Chaudhry : 1980 [...] mental status. The patient is at the [facility] and they reportedly found 3 Suboxone films [...] Brief ED course/MDM: Patient placed on a threat monitoring analyst will be evaluated with blood work here [...] occasionally words are mis-transcribed.) BLANCA LINDSEY MD [employer] [facility] [employer] Blanca Lindsey MD 08/11/20 0741 [facility] ED Provider Note Emergency Department Encounter Location: [facility] EMERGENCY [facility]PT Patient: Lisa Chaudhry : 1980 [...] eGFR >90.0 >60 mL/min EGFR IF NonAfrican Gambian >90.0 >60 mL/min Calcium 9.7 8.4 - [...] # 1.4 1.0 - 4.3 10*3/uL Absolute Elbert # 0.3 0.0 - 0.8 10*3/uL Absolute Eos # 0.0 0.0 - 0.5 10*3/uL Absolute Baso # 0.0 0.0 - 0.2 10*3/uL Urinalysis Result Value Ref Range Glucose, Ur Normal Normal (<70) mg/dL Total Protein, Urine Negative Negative mg/dL Bilirubin Urine Negative Negative mg/dL Urobilinogen, Urine Normal Normal (0-1) mg/dL pH, Urine 8.0 5.0 - 8.0 NA Specific [place], Urine 1.013 1.005 - 1.030 NA Occult [...] HCG, Urine, POC Negative Negative Lot Number [id number] Positive QC Pass/Fail Pass Negative QC Pass/Fail [...] ONCE Last JUN action: Given - by GIAN QUEEN on [...] [employer] Dayo Beasley MD 08/15/20 0650 Normal [facility] EthanolOrdered By: Pamela Lopez on 08-11-2020 Ethanol Lvl <0.010 0.000 - 0.010 g/dL [facility] Work Phone: Comment on above: NOTE: This result is for medical treatment only. Analysis performed using non-forensic procedures. Ethanol Serum/Plasmaon 08-11 Ethanol-Serum/Plasma < 0.010 Normal 0.000-0.010 [facility] Comment on above: Result Comment: NOTE : This result is for medical treatment only. Analysis performed using non-forensic procedures. Performed By: #### S AL33, BMP3, ETOH4, HEMDF, ACET4 #### [facility] [address] [place] [address] FENTANYL, URINEOrdered By: Betzaida Lopez on 08-11-2020 Fentanyl Positive Negative NA [facility] Work Phone: Comment on above: Fentanyl has been sc reened for by Immunoassay at a 2ng/ml threshold. POSITIVE results are not confirmed by a more specific alternative method unless requested. If confirmation is needed, request confirmation under separate order. NOTE: These results are for medical treatment only. Analysis performed using non-forensic procedures. Test Performed by [facility], [address] [place] [id number] [facility] Work Phone: [phone] Fentanyl Screen, Urineon Fentanyl Screen, Urn Positive Normal Negative [facility] [employer] [facility] Comment on above: Result Comment: Fent anyl has been screened for by Immunoassay at a 2ng/ml threshold. POSITIVE results are not confirmed by a more specific alternative method unless requested. If confirmation is needed, request confirmation under separate order. NOTE: These results are for medical treatment only. Analysis performed using non-forensic procedures. Performed By: #### C UA2, FENTU, DRGA4 #### [facility] [address] [place] [phone] Hemogram (CBC) w/Auto DiffOr dered By: Pamela Lopez on 08-11-2020 Absolute Baso # 0.0 10*3/uL 0.0 - 0.2 10*3/uL [employer] Work Phone: [phone] Absolute Neut # 6.7 10*3/uL 1.8 - 7.0 10*3/uL [employer] Work Phone: [phone] Basophils/100 WBC (Bld) 0.2 % 0.0 - 2.0 % [employer] Work Phone: [phone] Eosinophils (Bld) [#/Vol] 0.0 10*3/uL 0.0 - 0.5 10*3/uL [employer] Work Phone: [phone] Eosinophils/100 WBC (Bld) 0.1 % Low 1.0 - 6.0 % [employer] Work Phone: [phone] Granulocytes/100 WBC (Bld) 79.3 % 40.0 - 80.0 % [employer] Work Phone: [phone] Hematocrit (Bld) [Volume fraction] 46.5 % 35.0 - 47.0 % [employer] Work Phone: [phone] Hemoglobin.gastroint estinal spec 1 Ql (Stl) 15.4 g/dL 11.7 - 16.0 g/dL [facility] Work Phone: [phone] Lymphocytes (Bld) [#/Vol] 1.4 10*3/uL 1.0 - 4.3 10*3/uL [facility] Work Phone: [phone] Lymphocytes/100 WBC (Bld) 16.9 % Low 20.0 - 40.0 % [facility] Work Phone: [phone] MCH (RBC) [Entitic mass] 30.4 pg 26.0 - 34.0 pg [facility] Work Phone: [phone] MCHC (RBC) [Mass/Vol] 33.1 % 32.0 - 36.0 % [facility] Work Phone: [phone] MCV (RBC) [Entitic vol] 91.9 fL 79.0 - 98.0 fL [facility] Work Phone: [phone] Monocytes (Bld) [#/Vol] 0.3 10*3/uL 0.0 - 0.8 10*3/uL [facility] Work Phone: [phone] Monocytes/100 WBC (Bld) 3.5 % 2.0 - 10.0 % [facility] Work Phone: [phone] Platelet distribution width (Bld) [Ratio] 13.3 % 11.5 - 14.5 % [facility] Work Phone: [phone] Platelet mean volume (Bld) [Entitic vol] 8.7 fL 7.4 - 10.4 fL [facility] Work Phone: [phone] Platelets (Bld) [#/Vol] 309 10*3/uL 140 - 440 10*3/uL [facility] Work Phone: [phone] RBC (Bld) [#/Vol] 5.06 10*6/uL 3.80 - 5.2 0 10*6/uL [facility] Work Phone: [phone] WBC (Bld) [#/Vol] 8.4 10*3/uL 3.6 - 10.7 10*3/uL [facility] Work Phone: [phone] Test Performed by [facility], [address] [place] [address] [facility] Work Phone: Hemogram w/ Autodiffon 08-11 Abs Baso Cnt 0.0 10*3/uL Normal 0.0-0.2 [facility] Comment on above: Performed By: #### S AL33, BMP3, ETOH4, HEMDF, ACET4 #### [address] [phone] Abs Neutrophile Cnt 6.7 10*3/uL Normal 1.8-7.0 [facility] Comment on above: Performed By: #### S AL33, BMP3, ETOH4, HEMDF, ACET4 #### [address] [address] Basophils/100 WBC (Bld) 0.2 % Normal 0.0-2.0 [facility] Comment on above: Performed By: #### S AL33, BMP3, ETOH4, HEMDF, ACET4 #### [address] [address] Eosinophils (Bld) [#/Vol] 0.0 10*3/uL Normal 0.0-0.5 [facility] Comment on above: Performed By: #### S AL33, BMP3, ETOH4, HEMDF, ACET4 #### [address] [address] Eosinophils/100 WBC (Bld) 0.1 % Low 1.0-6.0 [facility] Comment on above: Performed By: #### S AL33, BMP3, ETOH4, HEMDF, ACET4 #### [address] [address] Erythrocyte distribution width (RBC) [Ratio] 13.3 % Normal 11.5-14.5 [facility] Comment on above: Performed By: #### S AL33, BMP3, ETOH4, HEMDF, ACET4 #### [address] [address] Granulocytes/100 WBC (Bld) 79.3 % Normal 40.0-80.0 [facility] Comment on above: Performed By: #### S AL33, BMP3, ETOH4, HEMDF, ACET4 #### [place] [address] [address], [place] Hematocrit (Bld) [Volume fraction] 46.5 % Normal 35.0-47.0 [facility] Comment on above: Performed By: #### S AL33, BMP3, ETOH4, HEMDF, ACET4 #### [place] [address] [place], [place] Hemoglobin (Bld) [Mass/Vol] 15.4 g/dL Normal 11.7-16.0 [facility] Comment on above: Performed By: #### S AL33, BMP3, ETOH4, HEMDF, ACET4 #### [address] Lymphocytes (Bld) [#/Vol] 1.4 10*3/uL Normal 1.0-4.3 [facility] Comment on above: Performed By: #### S AL33, BMP3, ETOH4, HEMDF, ACET4 #### [place] [address] [place], [place] Lymphocytes/100 WBC (Bld) 16.9 % Low 20.0-40.0 [facility] Comment on above: Performed By: #### S AL33, BMP3, ETOH4, HEMDF, ACET4 #### [place] [address] [place], [place] MCH (RBC) [Entitic mass] 30.4 pg Normal 26.0-34.0 [facility] Comment on above: Performed By: #### S AL33, BMP3, ETOH4, HEMDF, ACET4 #### [address] MCHC 33.1 % Normal 32.0-36.0 [facility] Comment on above: Performed By: #### S AL33, BMP3, ETOH4, HEMDF, ACET4 #### [address] MCV (RBC) [Entitic vol] 91.9 fL Normal 79.0-98.0 [facility] Comment on above: Performed By: #### S AL33, BMP3, ETOH4, HEMDF, ACET4 #### [place] [address] [place], [place] Monocytes (Bld) [#/Vol] 0.3 10*3/uL Normal 0.0-0.8 [facility] Comment on above: Performed By: #### S AL33, BMP3, ETOH4, HEMDF, ACET4 #### [place] [address] [place], [place] Monocytes/100 WBC (Bld) 3.5 % Normal 2.0-10.0 [facility] Comment on above: Performed By: #### S AL33, BMP3, ETOH4, HEMDF, ACET4 #### [place] [address] [place], [place] Platelet mean volume (Bld) [Entitic vol] 8.7 fL Normal 7.4-10.4 [facility] Comment on above: Performed By: #### S AL33, BMP3, ETOH4, HEMDF, ACET4 #### [address] Platelets (Bld) [#/Vol] 309 10*3/uL Normal 140-440 [facility] Comment on above: Performed By: #### S AL33, BMP3, ETOH4, HEMDF, ACET4 #### [address] [place] [address] [place], [place] RBC (Bld) [#/Vol] 5.06 10*6/uL Normal 3.80-5.20 [facility] Comment on above: Performed By: #### S AL33, BMP3, ETOH4, HEMDF, ACET4 #### [address] WBC (Bld) [#/Vol] 8.4 10*3/uL Normal 3.6-10.7 [facility] Comment on above: Performed By: #### S AL33, BMP3, ETOH4, HEMDF, ACET4 #### [address] [address] [place] [address] No Panel InformationOrdered By: Pamela Lopez on 08-11-2020 Test Performed by [facility], [address] [place] [phone] [employer] Work Phone: Interpretation and review of laboratory results Abnormal [facility] Work Phone: Test Performed by [facility], [address] [place] [address] [facility] Work Phone: POC UrineOrdered B y: Pamela Lopez on 08-11-2020 Beta HCG ( test) Ql (U) Negative Negative [facility] Work Phone: Beta HCG ( test) Ql (U) [id number] [facility] Work Phone: Interpretation and review of laboratory results Normal [facility] Work Phone: Negative QC Pass/Fail Pass [facility] Work Phone: Positive QC Pass/Fail Pass [employer] Work Phone: SALICYLATE LEVELOrdered By: Pamela Lopez on 08-11-2020 Salicylate Lvl <1.0 0.0 - 20.0 mg/dL [employer] Work Phone: Test Performed by [employer], [address] [place] [address] [facility] Work Phone: Salicylateson 08-11-2020 Salicylates < 1.0 Normal 0.0-20.0 [facility] Comment on above: Performed By: #### S AL33, BMP3, ETOH4, HEMDF, ACET4 #### [employer] [address] [place] [phone] UrinalysisOrdered By: Katie Lopez on 08-11-2020 Bilirubin Urine Negative Negative mg/dL [employer] Work Phone: Comment on above: . Glucose, Ur Normal Normal (<70) mg/dL [facility] Work Phone: Comment on above: . Ketones Ql (U) 10 mg/dL Abnormal Negative [facility] Work Phone: Comment on above: . LEUKOCYTES, UA Negative Negative Maggie/uL [facility] Work Phone: Comment on above: . Nitrite, Urine Negative Negative NA [facility] Work Phone: [phone] Comment on above: . pH (U) 8.0 [pH] [facility] Work Phone: [phone] Comment on above: . Specific [place], Urine 1.013 [facility] Work Phone: [phone] Comment on above: . Urine Drug ScreenOrdered By: Pamela Lopez on 08-11-2020 Amphetamines, urine Negative [employer] Work Phone: Barbiturates, Ur Negative [facility] Work Phone: Benzodiazepine Ur Qual Negative [employer] Work Phone: Cocaine Metabolites, Ur Negative [employer] Work Phone: Methadone, Urine Negative [facility] Work Phone: Opiates, Urine Negative [facility] Work Phone: Oxycodone Screen, Ur Negative [facility] Work Phone: PCP, Urine Negative [employer] Work Phone: Comment on above: The expected value f [...] is needed, request confirmation under separate order. IRAIDAon 07-10-2020 CNOV Office Visit (OBGMEM ) SKIPLISA Marko ([id number]) 1980 F Date Time Provider Department 07/10/20 1:30 PM VINCE OGDEN) OBGMEM During your visit today, we recorded the [...] by VINCE OGDEN PA-C on 07/10/20 Normal [facility] ED Discharge Educationon ED Discharge Education [...] your doctor if you can take an icwh-vnb-rjkptiw medicine. To prevent cellulitis in the future [...] Where can you learn more? Go to https://www.Method.net/ patientEd Enter X309 in the search box to learn more about Cellulitis: Care Instructions. Current as of: February 18, 2019 Content Version: 12.5; ? [employer]. Care instructions adapted under license by your healthcare professional. If you have questions about a medical condition or this instruction, always ask your healthcare professional. [employer] disclaims any warranty or liability for your [...] Where can you learn more? Go to https://www.Method.net/ patientEd Enter E242 in the search box to learn more about Opioid Withdrawal: Care Instructions. Current as of: December 10, 2018 Content Version: 125; ? [employer]. Care instructions adapted under license by your healthcare professional. If you have questions about a medical condition or this instruction, always ask your healthcare professional. [employer] disclaims any warranty or liability for your [...] embarrassed or ashamed. Don't let these feelings photograph finisher the way of getting treatment. Remember that [...] Where can you learn more? Go to https://www.Method.net/ patientEd Enter X744 in the search box to learn more about Learning About Opioid Use Disorder. Current as of: December 10, 2018 Content Version: 12.5; ? [employer]. Care instructions adapted under license by your healthcare professional. If you have questions about a medical condition or this instruction, always ask your healthcare professional. [employer] disclaims any warranty or liability for your use of this information. Normal [facility] ED Physician Reporton 2020 ED Physician [...] 4 PM today to be seen in [place] for her heroin withdrawal. The last Suboxone [...] be seen where she is scheduled in [place]. She will return here immediately for worsening of symptoms or change in her condition.. 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 Disposition: ED Discharge to Home was placed.(06/26/2020 12:34:00 EST, Constant Order). Prescriptions: [facility] Pharmacy: promethazine 25 mg oral tablet (Prescribe): 25 mg = 1 tab(s), ORAL, [id number], for 2 days, PRN: for nausea/vomiting, 8 tabs, 0 Refill(s) Augmentin 875 mg-125 mg oral tablet (Prescribe): 1 tabs, ORAL, [id number], for 10 days, 20 tabs, 0 Refill(s). [...] Regarding prescription, Patient indicated understanding of instructions. [facility] ED Progress Noteon ED Progress Note WALKED INTO ED TODAY WITH C/O WITHDRAWL SYMPTOMS FROM HEROIN. STATES SHE JUST ENTERED A SUBOX[employer] PROGRAM AND WAS GIVEN HER LILIMA DOSE TO TAKE THIS AM, BUT RELAPSED [...] AND WILL FOLLOW UP WITH PCP. Normal [facility] ELVER SOUMYA DIGITAL SCREEN MADHAVI Saucedasue 01-21-2019 Patient Name: LISA CHAUDHRY ---Mammography--- Exam Date/Time 01/21/2019 09:13:32 EDT Exam MG Breast Tomosynthesis BI Scr Ordering Physician MD MEIR, SHANTE OSORIO Accession Number [id number] CPT4 Codes 76721 (MG Breast Tomosynthesis Scr Bl), 30251 (MG MAMMO 2D SCREENING) Reason For Exam [...] images: BB's = Nipples; skin lesions Open [place] = Palpable Line = Scar 2D digital [...] 01/21/2019 9:57 am Signed by: MD [facility] Incoming Radiology Results From [facility] - 01/21/2019 11:18 AM EDT Patient Name: LISA CHAUDHRY ---Mammography--- Exam Date/Time 01/21/2019 09:13:32 EDT Exam MG Breast Tomosynthesis BI Scr Ordering Physician MD MEIR, SHANTE OSORIO Accession Number [id number] CPT4 Codes 10113 (MG Breast Tomosynthesis Scr Bl), 87192 (MG MAMMO 2D SCREENING) Reason For Exam [...] images: BB's = Nipples; skin lesions Open [place] = Palpable Line = Scar 2D digital [...] 9:57 am Signed by: MD HALIE, KARIME [place], [place] MG Breast Tomosynthesis Scr Blon 01-21-2019 MG Breast Tomosynthesis Scr Bl Patient Name: LISA CHAUDHRY Mammography Exam Date/Time 01/21/2019 09:13:32 EDT Exam MG Breast Tomosynthesis BI Scr Ordering Physician MD MEIR, SHANTE OSORIO Accession Number [id number] CPT4 Codes 33462 (MG Breast Tomosynthesis Scr Bl), 77190 (MG MAMMO 2D SCREENING) Reason For Exam [...] images: BB's = Nipples; skin lesions Open [place] = Palpable Line = Scar 2D digital [...] Time: 01/21/2019 9:57 am Signed by: MD AMBROSE JENNIFER R Normal [facility] Comp Metabolic Panelon 01-12 ALT [Catalytic activity/Vol] 48 U/L Normal 13-69 [facility] Comment on above: Performed By: #### T SH5, HEMDF, LIPD2, CMP3 #### [facility] [address] [place] [address] Calcium [Mass/Vol] 9.7 mg/dL Normal 8.4-10.4 [facility] Comment on above: Performed By: #### T SH5, HEMDF, LIPD2, CMP3 #### [facility] [address] [place] [address] ALP [Catalytic activity/Vol] 80 U/L Normal 38-126 [facility] Comment on above: Performed By: #### T SH5, HEMDF, LIPD2, CMP3 #### [facility] [address] [place] [address] Anion gap [Moles/Vol] 7 Normal [facility] Comment on above: Performed By: #### T SH5, HEMDF, LIPD2, CMP3 #### [facility] [address] [place] [address] AST [Catalytic activity/Vol] 37 U/L Normal 15-46 [facility] Comment on above: Performed By: #### T SH5, HEMDF, LIPD2, CMP3 #### [facility] [address] [place] [address] Bilirubin [Mass/Vol] 0.3 mg/dL Normal 0.2-1.3 [facility] Comment on above: Performed By: #### T SH5, HEMDF, LIPD2, CMP3 #### [facility] [address] [place] [address] CO2 [Moles/Vol] 26 mmol/L Normal 22-30 [facility] Comment on above: Performed By: #### T SH5, HEMDF, LIPD2, CMP3 #### [facility] [address] [place] [address] Glucose [Mass/Vol] 90 mg/dL Normal 70-100 [facility] Comment on above: Performed By: #### T SH5, HEMDF, LIPD2, CMP3 #### [facility] [address] [place] [address] Protein [Mass/Vol] 7.5 g/dL Normal 6.3-8.2 [facility] Comment on above: Performed By: #### T SH5, HEMDF, LIPD2, CMP3 #### [facility] [address] [place] [address] Urea nitrogen [Mass/Vol] 14 mg/dL Normal 7-20 [facility] Comment on above: Performed By: #### T SH5, HEMDF, LIPD2, CMP3 #### [facility] [address] [place] [address] Creatinine [Mass/Vol] 0.73 mg/dL Normal 0.52-1.25 [facility] Comment on above: Performed By: #### T SH5, HEMDF, LIPD2, CMP3 #### [facility] [address] [place] [address] GFR/1.73 sq M predicted among blacks MDRD (S/P/Bld) [Vol rate/Area] mL/min/{1.73_m2} Normal >60 [facility] Comment on above: Performed By: #### T SH5, HEMDF, LIPD2, CMP3 #### [facility] [address] [place] [address] GFR/1.73 sq M predicted among non-blacks MDRD (S/P/Bld) [Vol rate/Area] mL/min/{1.73_m2} Normal >60 [facility] Comment on above: Result Comment: Sour ce- MDRD equation with creatinine calibration to IDMS(NKDEP) eGFR not recommended for drug dose adjustment Performed By: #### T SH5, HEMDF, LIPD2, CMP3 #### [facility] [address] [place] [address] Albumin [Mass/Vol] 4.0 g/dL Normal 3.5-5.0 [facility] Comment on above: Performed By: #### T SH5, HEMDF, LIPD2, CMP3 #### [facility] [address] [place] [address] Chloride [Moles/Vol] 109 mmol/L High 98-107 [facility] Comment on above: Performed By: #### T SH5, HEMDF, LIPD2, CMP3 #### [facility] [address] [place] [address] Potassium [Moles/Vol] 4.3 mmol/L Normal 3.5-5.1 [facility] Comment on above: Performed By: #### T SH5, HEMDF, LIPD2, CMP3 #### [facility] [address] [place] [address] Sodium [Moles/Vol] 142 mmol/L Normal 135-145 [facility] Comment on above: Performed By: #### T SH5, HEMDF, LIPD2, CMP3 #### [facility] [address] [place] [address] HIV 1,2 Ab; p24 Agon 019 HIV 1,2 Ab; p24 Ag NONREACTIVE Normal Nonreactive [facility] Comment on above: Result Comment: Resu lts [...] By: #### H IV4, RPR, HBSAG #### [facility] [address] [place] [address] Hemogram w/ Autodiffon 01-12 Abs Baso Cnt 0.1 10*3/uL Normal 0.0-0.2 [facility] Comment on above: Performed By: #### T SH5, HEMDF, LIPD2, CMP3 #### [facility] [address] [place] [address] Abs Neutrophile Cnt 3.4 10*3/uL Normal 1.8-7.0 [facility] Comment on above: Performed By: #### T SH5, HEMDF, LIPD2, CMP3 #### [facility] [address] [place] [address] Basophils/100 WBC (Bld) 0.6 % Normal 0.0-2.0 [facility] Comment on above: Performed By: #### T SH5, HEMDF, LIPD2, CMP3 #### [facility] [address] [place] [address] Eosinophils (Bld) [#/Vol] 0.4 10*3/uL Normal 0.0-0.5 [facility] Comment on above: Performed By: #### T SH5, HEMDF, LIPD2, CMP3 #### [facility] [address] [place] [address] Eosinophils/100 WBC (Bld) 5.5 % Normal 1.0-6.0 [facility] Comment on above: Performed By: #### T SH5, HEMDF, LIPD2, CMP3 #### [facility] [address] [place] [address] Erythrocyte distribution width (RBC) [Ratio] 13.4 % Normal 11.5-14.5 [facility] Comment on above: Performed By: #### T SH5, HEMDF, LIPD2, CMP3 #### [facility] [address] [place] [address] Granulocytes/100 WBC (Bld) 43.0 % Normal 40.0-80.0 [facility] Comment on above: Performed By: #### T SH5, HEMDF, LIPD2, CMP3 #### [facility] [address] [place] [address] Hematocrit (Bld) [Volume fraction] 43.4 % Normal 35.0-47.0 [facility] Comment on above: Performed By: #### T SH5, HEMDF, LIPD2, CMP3 #### [facility] [address] [place] [address] Hemoglobin (Bld) [Mass/Vol] 15.2 g/dL Normal 11.7-16.0 [facility] Comment on above: Performed By: #### T SH5, HEMDF, LIPD2, CMP3 #### [facility] [address] [place] [address] Lymphocytes (Bld) [#/Vol] 3.2 10*3/uL Normal 1.0-4.3 [facility] Comment on above: Performed By: #### T SH5, HEMDF, LIPD2, CMP3 #### [facility] [address] [place] [address] Lymphocytes/100 WBC (Bld) 40.5 % High 20.0-40.0 [facility] Comment on above: Performed By: #### T SH5, HEMDF, LIPD2, CMP3 #### [facility] [address] [place] [address] MCH (RBC) [Entitic mass] 32.9 pg Normal 26.0-34.0 [facility] Comment on above: Performed By: #### T SH5, HEMDF, LIPD2, CMP3 #### [facility] [address] [place] [address] MCHC (RBC) [Mass/Vol] 35.0 % Normal 32.0-36.0 [facility] Comment on above: Performed By: #### T SH5, HEMDF, LIPD2, CMP3 #### [facility] [address] [place] [address] MCV (RBC) [Entitic vol] 94.0 fL Normal 79.0-98.0 [facility] Comment on above: Performed By: #### T SH5, HEMDF, LIPD2, CMP3 #### [facility] [address] [place] [address] Monocytes (Bld) [#/Vol] 0.8 10*3/uL Normal 0.0-0.8 [facility] Comment on above: Performed By: #### T SH5, HEMDF, LIPD2, CMP3 #### [facility] [address] [place] [address] Monocytes/100 WBC (Bld) 10.4 % High 2.0-10.0 [facility] Comment on above: Performed By: #### T SH5, HEMDF, LIPD2, CMP3 #### [facility] [address] [place] [address] Platelet mean volume (Bld) [Entitic vol] 8.5 fL Normal 7.4-10.4 [facility] Comment on above: Performed By: #### T SH5, HEMDF, LIPD2, CMP3 #### [facility] [address] [place] [address] Platelets (Bld) [#/Vol] 285 10*3/uL Normal 140-440 [facility] Comment on above: Performed By: #### T SH5, HEMDF, LIPD2, CMP3 #### [facility] [address] [place] [address] RBC (Bld) [#/Vol] 4.61 10*6/uL Normal 3.80-5.20 [facility] Comment on above: Performed By: #### T SH5, HEMDF, LIPD2, CMP3 #### [facility] [address] [place] [address] WBC (Bld) [#/Vol] 8.0 10*3/uL Normal 3.6-10.7 [facility] Comment on above: Performed By: #### T SH5, HEMDF, LIPD2, CMP3 #### [facility] [address] [place] [address] Hep B Surface Agon 9 Hep B Surface Ag NOT DETECTED Normal Not-Detected [facility] Comment on above: Performed By: #### H IV4, RPR, HBSAG #### [facility] [address] [place] [address] Lipid Panelon 01-12-2019 Cholesterol in HDL [Mass/Vol] 48 mg/dL Normal 40-60 [facility] Comment on above: Performed By: #### T SH5, HEMDF, LIPD2, CMP3 #### [facility] [address] [place] [address] Cholesterol.total/Ch olesterol in HDL [Mass ratio] 4 Normal [facility] Comment on above: Result Comment: Ref Range: < 3 Low Risk for CHD 3-6 Mod Risk for CHD > 6 High Risk for CHD Performed By: #### T SH5, HEMDF, LIPD2, CMP3 #### [facility] [address] [place] [address] Protein [Mass/Vol] 145 mg/dL Abnormal <100 [facility] Comment on above: Performed By: #### T SH5, HEMDF, LIPD2, CMP3 #### [facility] [address] [place] [address] Triglyceride [Mass/Vol] 93 mg/dL Normal <150 [facility] Comment on above: Performed By: #### T SH5, HEMDF, LIPD2, CMP3 #### [facility] [address] [place] [address] Cholesterol [Mass/Vol] 212 mg/dL Abnormal < 200 [facility] Comment on above: Performed By: #### T SH5, HEMDF, LIPD2, CMP3 #### [facility] [address] [place] [address] RPR, Qualon 01-12-2019 RPR, Qual NONREACTIVE Normal Non-Reactive [facility] Comment on above: Performed By: #### H IV4, RPR, HBSAG #### [address] [address] Thyroid Stim. Hormoneon 12-21 Thyroid Stim. Hormone 0.677 u[IU]/mL Normal 0.465-4.680 [facility] Comment on above: Performed By: #### T SH5, HEMDF, LIPD2, CMP3 #### [facility] [address] [place] [address] XR ABDOMEN (2 VIEWS)on 11-27 Patient Name: LISA CHAUDHRY ---Diagnostic Radiology--- Exam Date/Time 11/27/2018 12:00:29 EDT Exam CR Abdomen 2 Views Complete Ordering Physician YANETH GRIGGS HEATHER M Accession Number [id number] CPT4 Codes 09349 () Reason For Exam flat plate abd; [...] NICHOLAS Transcribed Date and Time: 11/27/2018 2:24 [place], [place] [facility]isses, [facility] Incoming Radiology Results From [facility] - 11/27/2018 2:28 PM EDT Patient Name: LISA CHAUDHRY ---Diagnostic Radiology--- Exam Date/Time 11/27/2018 12:00:29 EDT Exam CR Abdomen 2 Views Complete Ordering Physician YANETH GRIGGS HEATHER M Accession Number [id number] CPT4 Codes 78375 () Reason For Exam flat plate abd; [...] NICHOLAS Transcribed Date and Time: 11/27/2018 2:24 [place], [place] DUPLEX EXTREMITY VEINS CMPLT /BILATERALon 12-09-2017 [...] bilaterally.Electronically signed by: JACLYN CARNEY MD Normal [facility] HEPATITIS C GENOTYPEon 05-01 HEPATITIS C GENOTYPE 3a Normal [facility] Comment on above: Result Comment: The method used in this test is RT-PCR and reversehybridization (Line Probe) of the 5' UTR and coreregion of the HCV genome.This test was developed and its analytical performancecharacteristics have been determined by [employer] [facility], [place], [place]. It hasnot been cleared or approved by the U.S. Food and DrugAdministration. This assay has been validated pursuantto the CLIA regulations and is used for clinicalpurposes.For more information on this test, go tohttp://education.eMithilaHaat/faq/HCVGenotyping Performed By: #### C MP ####[facility] [id number] HCV FIBROSUREon 04-29-2017 ALPHA 2 MACROGLOB. 198 mg/dL Normal 110-276 [facility] Comment on above: Performed By: #### C MP ####[facility] [id number] ALT[SGPT] P5P 31 IU/L Normal 0-40 [facility] Comment on above: Performed By: #### C MP ####[facility] [id number] ANALYSIS SEE BELOW Normal [facility] Comment on above: Performed By: #### C MP ####[place] [id number] [id number] Apolipoprotein A-I mass conc 166 mg/dL Normal 116-209 [facility] Comment on above: Performed By: #### C MP ####[facility] [place] [address] Bilirubin mass conc 0.2 mg/dL Normal 0.0-1.2 [facility] Comment on above: Performed By: #### C MP ####[facility] [id number] COMMENT COMMENT Normal [facility] Comment on above: Result Comment: This test was developed and its performance characteristics determinedby [facility]. It has not been cleared or approved by the Food and DrugAdministration. The FDA has determined that such clearance orapproval is not necessary.For questions regarding this report please contact customer serviceat . Performed By: #### C MP ####[facility] [id number] FIBROSIS SCORE 0.07 Normal 0.00-0.21 [facility] Comment on above: Performed By: #### C MP ####[facility] [place] [address] FIBROSIS SCORING COMMENT Normal [facility] Comment on above: Result Comment: <0.2 1 [...] - Cirrhosis Performed By: #### C MP ####[facility] [place] [address] FIBROSIS STAGE COMMENT Normal [facility] Comment on above: Result Comment: F0 - No fibrosis Performed By: #### C MP ####[facility] [place] [address] GGT 29 IU/L Normal 0-60 [facility] Comment on above: Performed By: #### C MP ####[facility] [place] [address] HAPTOGLOBIN 82 mg/dL Normal 34-200 [facility] Comment on above: Performed By: #### C MP ####[facility] [place] [address] INTERPRETATION COMMENT Normal [facility] Comment on above: Result Comment: El titative results of 6 biochemical tests are analyzed usinga computational algorithm to provide a quantitative surrogatemarker (0.0-1.0) for liver fibrosis (METAVIR F0-F4) and fornecroinflammatory activity (METAVIR A0-A3). Performed By: #### C MP ####[facility] [id number] LIMITATIONS COMMENT Normal [facility] Comment on above: Result Comment: The negative [...] the liver. Performed By: #### C MP ####[place] [id number] [place] [address] NECROINFLAM.ACT.GRAD E A0-No activity Normal [facility] Comment on above: Performed By: #### C MP ####[place] [id number] [place] [address] NECROINFLAM.ACT.SCOR E 0.11 Normal 0.00-0.17 [facility] Comment on above: Performed By: #### C MP ####[place] [id number] [place] [address] NECROINFLAMM.ACT.SCO RING COMMENT Normal [facility] Comment on above: Result Comment: <0.1 7 = Grade A0 - No Activity0.17 - 0.29 = Grade A0 - A10.29 - 0.36 = Grade A1 - Minimal activity0.36 - 0.52 = Grade A1 - A20.52 - 0.60 = Grade A2 - Moderate activity0.60 - 0.62 = Grade A2 - A3 >0.62 = Grade A3 - Severe activity Performed By: #### C MP ####[place] [id number] [place] [id number] HCV PCR WITH GENOTYPE REFLEX on 04-28-2017 HCV RNA, PCR 8710 IU/mL Abnormal [facility] Comment on above: Result Comment: REF VALUENEGATIVE Performed By: #### H CVG1 ####[place] [id number] [place] [id number] HCV RNA,PCR, LOG 3.94 log10 IU/mL Abnormal [facility] Comment on above: Result Comment: HCV RNA BY PCR (VIRAL LOAD) IS PERFORMEDUSING THE AVA FRANSISCO AMPLIPREP/FRANSISCO TAQMANHCV TEST. THIS IS A TEST FOR THE QUANTITATIONOF HEPATITIS C VIRAL RNA IN HUMAN PLASMA ORSERUM USING THE AMPLIPREP INSTRUMENT FORAUTOMATED SPECIMEN PROCESSING AND [employer] ANALYZER FOR AUTOMATED AMPLIFICATIONAND DETECTION. SPECIMENS CONTAINING HCVGENOTYPES 1-6 HAVE BEEN VALIDATED FORQUANTITATION IN THE ASSAY. THE TEST CANQUANTITATE 15 TO 100,000,000 IU/ML OF HCV RNA.THIS TEST IS STANDARDIZED AGAINST THE [facility] STANDARD FOR HEPATITIS CVIRUS RNA FOR NUCLEIC ACID AMPLIFICATIONTECHNOLOGY ASSAYS ([facility] CODE 96/790).THE TEST IS APPROVED BY [...] BY THE MOLECULAR DIAGNOSTICSLABORATORY, DEPARTMENT OF PATHOLOGY AT. Performed By: #### H CVG1 ####[facility] [place] [address] ALCOHOL,URINEon 04-25-2017 ALCOHOL,URINE <10 Normal <20 [facility] Comment on above: Result Comment: Urin es containing sugars and contaminated with microorganisms may yield afalse positive result due to fermentation of sugar to alcohol. Performed By: #### A LCU ####[facility] [place] [address] CBCon 04-25-2017 Erythrocyte distribution width Auto Ratio (RBC) 13.1 % Normal 11.5 - 14.5 [facility] Comment on above: Performed By: #### C BC ####[facility] [place] [address] Hematocrit Auto Volume Fraction (Bld) 48.5 % High 36.0 - 46.0 [facility] Comment on above: Performed By: #### C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 Start: 06-10-2022 Telephone encounter Shante wheeler MD Work Phone: [facility] Comment on above: Surgery Scheduling Start: 06-07-2022 End: 06-07-2022 Patient encounter procedure Shante Worley MD Work Phone: [facility] Comment on above: Pre-procedural labor atory examinations (Primary Dx); Abnormal uterine bleeding (AUB); Atypical endometrial cells on Pap smear; ASCUS with positive high risk HPV cervical Start: 06-07-2022 End: 06-07-2022 Patient encounter status Shante Worley MD Work Phone: [facility] Start: 05-06-2022 End: 05-06-2022 Patient encounter procedure [facility] Ob Rm 1 [facility] Comment on above: Abnormal uterine ble eding (AUB) Start: 05-02-2022 End: 05-02-2022 Subsequent hospital visit by physician Shante Worley MD Work Phone: [facility] Comment on above: Encounter for screen ing mammogram for malignant neoplasm of breast Start: 04-24-2022 Telephone encounter Shante wheeler MD Work Phone: [facility] Comment on above: Surgery Scheduling Start: 04-23-2022 End: 04-23-2022 Office outpatient visit 15 minutes Shante Worley MD Work Phone: [facility] Comment on above: Abnormal uterine ble eding (Primary Dx); Severe dysplasia of cervix (WESTON III); Screening for cervical cancer; Encounter for screening mammogram for malignant neoplasm of breast Start: 12-19-2021 Office outpatient vi sit 15 minutes Elizabeth Tapia Work Phone: [facility] Work Phone: Start: 07-13-2021 Telephone encounter Elizabeth Tapia Work Phone: [facility] Work Phone: Start: 05-04-2021 Telephone encounter Elizabeth Tapia Work Phone: [facility] Work Phone: Start: 03-08-2021 Office outpatient vi sit 15 minutes Elizabeth Tapia Work Phone: [facility] 205 DO Work Phone: Start: 03-08-2021 Patient encounter procedure Elizabeth Tapia Work Phone: [facility] 205 DO Work Phone: Start: 02-28-2021 Telephone encounter Elizabeth Tapia Work Phone: [facility]Mm[facility] Work Phone: Start: 01-30-2021 Office outpatient vi sit 25 minutes Elizabeth Tapia Work Phone: [facility] Work Phone: Start: 12-15-2020 Office outpatient vi sit 15 minutes Nicki Nguyen Work Phone: [facility] Work Phone: Start: 08-11-2020 End: 08-12-2020 Emergency department patient visit Blanca Lindsey MD Work Phone: [facility] Emergency Dept Comment on above: Drug overdose, undet ermined intent, initial encounter (Primary Dx) Start: 02-03-2019 End: 02-03-2019 Emergency department patient visit Eddie Macario Work Phone: [facility] Comment on above: Serum sickness due t o drug, initial encounter (Primary Dx); Vaccine reaction, initial encounter; Asthma without status asthmaticus or acute exacerbation Start: 01-21-2019 End: 01-21-2019 Subsequent hospital visit by physician Shante Worley Work Phone: [facility] Comment on above: Encounter for screen ing mammogram for malignant neoplasm of breast Start: 12-11-2018 End: 12-12-2018 Emergency department patient visit Nathan Dwyer Clint Work Phone: [facility] Comment on above: Viral upper respirat ory tract infection (Primary Dx); Asthmatic bronchitis; Body aches; Cigarette nicotine dependence with nicotine-induced disorder Start: 11-27-2018 End: 11-27-2018 Subsequent hospital visit by physician Estefania Griggs Work Phone: [facility] X-Ray Comment on above: Constipation, unspec ified constipation type Start: 12-09-2017 Patient encounter MATT CASTILLO Facility:[facility] Start: 05-07-2017 Ambulatory PROVIDER UNKNOWN Facili ty:7 Start: 04-25-2017 Patient encounter Ajay Ortiz en Facility:[facility] Start: 01-10-2017 End: 01-15-2017 Evaluation and management of inpatient [facility] Start: 01-10-2017 End: 01-10-2017 Emergency department patient visit [facility] Procedures Date Procedure Procedure Detail Performing [...] 06-02-2024 End: 06-02-2024 Screening digital breast tomosynthesis misha Worley MD Work Phone: Start: 03-27-2024 C-reactive [...] 03-25-2024 Basic metabolic panel calcium total Yohan Bandar De La Garza [employer] Work Phone: Start: 03-24-2024 Electrocardiogram Florian Wynn MD Work Phone: Start: 03-24-2024 Ct head/brain w/o co ntrast material Hiwot Hoover [employer] Work Phone: Start: 03-24-2024 Assay of ammonia Mirtha Hoover [employer] Work Phone: Start: 03-24-2024 Gases blood ph direc t jax xcpt pulse oximitry Hiwot Hoover [employer] Work Phone: Start: 03-24-2024 LIGHT GREEN TOP Hiwot Hoover [employer] Work Phone: Start: 03-24-2024 RAINBOW DRAW Hiwot Hoover [employer] Work Phone: Start: 03-24-2024 Culture bacterial quanttative colony count urine Hiwot Hoover [employer] Work Phone: Start: 03-24-2024 Drug tst prsmv instr mnt chem analyzers pr date Hiwot Hoover [facility] Work Phone: Start: 03-24-2024 Ecg routine ecg w/le ast 12 lds trcg only w/o i&r Hiwot Hoover [facility] Work Phone: Start: 03-24-2024 Radiologic exam ches t single view Hiwot Hoover [employer] Work Phone: Start: 03-24-2024 Blood ethanol measurement Hiwot Hoover [employer] Work Phone: Start: 03-24-2024 Comprehensive metabo lic panel Hiwot Hoover [employer] Work Phone: Start: 03-24-2024 LAVENDER TOP Hiwot Hoover [facility] Work Phone: Start: 03-24-2024 LIGHT BLUE TOP Hiwot Hoover [employer] Work Phone: Start: 03-24-2024 LIGHT GREEN TOP Hiwot Tha Hoover [facility] Work Phone: Start: 03-24-2024 MINT GREEN TOP Hiwot Hoover [employer] Work Phone: Start: 03-24-2024 RAINBOW DRAW Hiwot Hoover [facility] Work Phone: Start: 03-24-2024 Glucose measurement [facility] Start: 11-07-2022 Microscopic observat ion [Identifier] in Cervix by Cyto stain Raquel Kirkland LPN Start: 07-10-2022 End: 07-10-2022 Conization cervix w/wo d&c rpr eltrd exc Shante Worley MD Work Phone: Start: 07-10-2022 Blood count complete automated Shante Worley MD Work Phone: Start: 07-10-2022 Urine test visual color cmprsn meths Jesus Mann MD Work Phone: Start: 06-28-2022 Urine test visual color cmpgeovanni Worley MD Work Phone: Start: 06-07-2022 Urine [...] Urine test visual color cmprsn meths Pamela Ivannalaurenasan PA-C Work Phone: Start: 08-11-2020 Assay of acetaminophen Pamela Ivannaimbasan PA-C Work Phone: Start: 08-11-2020 Assay of ethanol Madali na Ghimbasan PA-C Work Phone: Start: 08-11-2020 Assay of salicylate Mad toy Ghimbasan PA-C Work Phone: Start: 08-11-2020 Basic metabolic pane l calcium total Pamela Ghimbasan PA-C Work Phone: Start: 08-11-2020 Drug screen class list a Pamela Ivannaimbasan PA-C Work Phone: Start: 08-11-2020 Drug tst prsmv instr mnt chem analyzers pr date Pamela Ivannalaurenasan PA-C Work Phone: Start: 08-11-2020 Urnls dip stick/tabl et rgnt auto w/o microscopy Pamela Ivannaimbasan PA-C Work Phone: Start: 08-11-2020 Ecg routine ecg w/le ast 12 lds w/i&r Pamela Lopez PA-C Work Phone: Start: 01-21-2019 Screening digital br east tomosynthesis bi Shante Worley Work Phone: Start: 11-27-2018 Radiologic exam [...] for Adults (1 - 1-dose 75+ series) [facility] [employer] Start: 2039 RSV Immunization age d 60 or older (1 - 1-dose 60+ series) RSV Immunization aged 60 or older (1 - 1-dose 60+ series) [facility] [employer] Start: 08-24-2029 Screening for malign ant neoplasm of cervix [facility] [employer] Start: 2029 Zoster Vaccines (1 of 2) Zoste r Vaccines (1 of 2) [facility] Start: 02-01-2029 DTaP/Tdap/Td vaccine (2 - Td) DTaP/Tdap/Td vaccine (2 - Td) [facility] Work Phone: Start: 02-01-2029 DTaP/Tdap/Td Vaccine s (2 - Td or Tdap) DTaP/Tdap/Td Vaccines (2 - Td or Tdap) [facility] Start: 11-08-2027 Screening for malign ant neoplasm of cervix [facility] Start: 08-25-2027 Screening for malign ant neoplasm of cervix Pap Smear [facility] Start: 04-23-2027 Screening for malign ant neoplasm of cervix [facility] Start: 05-29-2026 Screening for malign ant neoplasm of cervix [facility] Start: 11-07-2025 Screening for malign ant neoplasm of cervix [facility] Start: 06-02-2025 Screening for malign ant neoplasm of breast Mammogram [facility] Start: 04-23-2025 Screening for malign ant neoplasm of cervix Pap Smear [facility] Start: 12-20-2024 Influenza vaccination Influenz a Vaccine (Season Ended) [facility] Start: 08-24-2024 End: 10-24-2025 DBT Breast - bilateral screening Bilateral screening mammogram with tomosynthesis Imaging Routine Encounter for screening mammogram for malignant neoplasm of breast Expected: 08/24/2024, Expires: 10/24/2025 [facility] Comment on above: Expected: 08/24/2024 , Expires: 10/24/2025 Start: 08-24-2024 End: 08-24-2025 Hepatitis B virus surface Ag [Presence] in Serum or Plasma by Immunoassay Hepatitis B surface antigen Lab Routine Screen for STD (sexually transmitted disease) Expected: 08/24/2024 (Approximate), Expires: 08/24/2025 [facility] Work Phone: Comment on above: Expected: 08/24/2024 (Approximate), Expires: 08/24/2025 Start: 08-24-2024 End: 08-24-2025 Hepatitis C virus Ab [Presence] in Serum or Plasma by Immunoassay Hepatitis C antibody Lab Routine Screen for STD (sexually transmitted disease) Expected: 08/24/2024 (Approximate), Expires: 08/24/2025 [facility] Comment on above: Expected: 08/24/2024 (Approximate), Expires: 08/24/2025 Start: 08-24-2024 End: 08-24-2025 HIV 1+2 Ab+HIV1 p24 Ag [Presence] in Serum or Plasma by Immunoassay HIV-1 and HIV-2 Antigen-Antibody Screen Lab Routine Screen for STD (sexually transmitted disease) Expected: 08/24/2024 (Approximate), Expires: 08/24/2025 [facility] Comment on above: Expected: 08/24/2024 (Approximate), Expires: 08/24/2025 Start: 08-24-2024 End: 08-24-2025 Reagin Ab [Presence] in Serum by RPR RPR Lab Routine Screen for STD (sexually transmitted disease) Expected: 08/24/2024 (Approximate), Expires: 08/24/2025 [facility] Comment on above: Expected: 08/24/2024 (Approximate), Expires: 08/24/2025 Start: 06-25-2024 End: 06-25-2024 Patient encounter procedure 06/25/2024 8:45 AM EST Office Visit [facility] Obstetrics and Gynecology [facility] [address] [place] [address] Shante Worley MD [address] [place] [address] [facility] Obstetrics and Gynecology - [place] Start: 05-29-2024 Screening for malign ant neoplasm of cervix Pap Smear [facility] Start: 01-13-2024 Lipid panel Lipid screen [facility] RUN Phone: Start: 12-21-2023 COVID-19 Vaccine ( season) COVID-19 Vaccine () [facility] Start: 12-21-2023 COVID-19 Vaccine () COVID-19 Vaccine ( season) [facility] Start: 12-21-2023 Influenza vaccination Influenza Vacc ine (#1) [facility] Start: 05-02-2023 Screening for malign ant neoplasm of breast Mammogram [facility] Start: 01-31-2023 End: 01-31-2023 Patient encounter procedure [facility] Start: 12-20-2022 COVID-19 Vaccine () COVID-19 Vaccine () [facility] Start: 12-20-2022 Influenza vaccination [facility] Start: 12-12-2022 End: 12-12-2022 Telemedicine consultation with patient 12/12/2022 8:45 AM EDT Telemedicine [facility] Obstetrics & Gynecology [address] [facility] [address] [place] [id number] Shante Worley MD [address] [place], [place] [id number] [facility] Obstetrics & Gynecology Start: 11-07-2022 End: 11-07-2022 Patient encounter procedure 11/07/2022 9:15 AM EDT Office Visit [facility] Obstetrics & Gynecology [address] [facility] [address] [place] [phone] Shante Worley MD [address] [place], [place] [id number] [facility] Obstetrics & Gynecology Start: 10-04-2022 End: 10-04-2022 Patient encounter procedure 10/04/2022 Office Visit Obstetrics and Gynecology Shante Worley MD [address] [place], [place] [id number] [facility] Start: 09-27-2022 End: 09-27-2022 Patient encounter procedure 09/27/2022 Procedure Visit Obstetrics and Gynecology [facility] Obstetrics & Gynecology Start: 08-14-2022 End: 08-15-2023 US Pelvis US pelvis Imaging Routine Abnormal uterine bleeding (AUB) Adnexal cyst Expected: 08/14/2022, Expires: 08/15/2023 [facility] Work Phone: Comment on above: Expected: 08/14/2022 , Expires: 08/15/2023 Start: 07-25-2022 End: 07-25-2022 Patient encounter procedure 07/25/2022 Office Visit Obstetrics and Gynecology Shante Worley MD [address] [place], [place] [id number] [facility] [facility] Start: 07-10-2022 End: 07-10-2022 Admission to same day surgery center [facility] MAIN OR Comment on above: LEEP,HYSTEROSCOPY, D ILATION AND CURETTAGE [68990 (CPT )] LEEP [07652 (CPT )] Start: 07-10-2022 End: 07-10-2022 Conization cervix w/wo d&c rpr eltrd exc CONIZATION OF CERVIX LOOP ELECTRODE EXCISION Dysplasia of cervix uteri, unspecified 07/10/2022 3:00 PM EDT [facility] Operating Room Start: 07-10-2022 End: 07-10-2022 Hysteroscopy bx endometrium&/polypc w/wo d&c HYSTEROSCOPY BIOPSY ENDOMETRIUM AND OR POLYPECTOMY Dysplasia of cervix uteri, unspecified 07/10/2022 3:00 PM EDT [facility] Operating Room Start: 07-10-2022 Subsequent hospital visit by physician 07/10/2022 Hospital Encounter Procedural Shante Worley MD [address], [address] [place] [address] [facility] MAIN OR Start: 07-04-2022 End: 07-04-2022 Admission to establishment [facility] Pre-Admit Testing Start: 06-28-2022 End: 06-28-2022 Patient encounter procedure 06/28/2022 Office Visit Obstetrics and Gynecology Shante Worley MD [address] [place] [address] [facility] Start: 06-07-2022 End: 06-07-2023 Colposcopy Colposcopy Procedures Routine ASCUS with positive high risk HPV cervical Expected: 06/07/2022 (Approximate), Expires: 06/07/2023 [facility] Comment on above: Expected: 06/07/2022 (Approximate), Expires: 06/07/2023 Start: 06-07-2022 End: 06-07-2022 Patient encounter procedure 06/07/2022 Procedure Visit Obstetrics and Gynecology Shante Worley MD [address] [place] [address], [address] [place] [address] [facility] Start: 05-06-2022 End: 05-06-2022 Patient encounter procedure 05/06/2022 Procedure Visit Obstetrics and Gynecology [facility] Start: 05-03-2022 End: 05-03-2022 Patient encounter procedure 05/03/2022 Procedure Visit Obstetrics and Gynecology [facility] Start: 05-02-2022 End: 05-02-2022 Patient encounter procedure 05/02/2022 Appointment Radiology [facility] Start: 04-23-2022 End: 06-22-2023 DBT Breast - bilateral screening Bilateral screening mammogram with tomosynthesis Imaging Routine Encounter for screening mammogram for malignant neoplasm of breast Expected: 04/23/2022, Expires: 06/22/2023 [facility] Work Phone: Comment on above: Expected: 04/23/2022 , Expires: 06/22/2023 Start: 04-23-2022 End: 04-23-2023 Follicle stimulating hormone Follicle stimulating hormone Lab Routine Abnormal uterine bleeding Expected: 04/23/2022 (Approximate), Expires: 04/23/2023 [facility] Comment on above: Expected: 04/23/2022 (Approximate), Expires: 04/23/2023 Start: 04-23-2022 End: 04-23-2023 hCG, quantitative, hCG, quantitative, Lab Routine Abnormal uterine bleeding Expected: 04/23/2022 (Approximate), Expires: 04/23/2023 [facility] Comment on above: Expected: 04/23/2022 (Approximate), Expires: 04/23/2023 Start: 04-23-2022 End: 04-23-2023 Prolactin Prolactin Lab Routine Abnormal uterine bleeding Expected: 04/23/2022 (Approximate), Expires: 04/23/2023 [facility] Comment on above: Expected: 04/23/2022 (Approximate), Expires: 04/23/2023 Start: 04-23-2022 End: 04-23-2023 Thyrotropin [Units/volume] in Serum or Plasma TSH Lab Routine Abnormal uterine bleeding Expected: 04/23/2022 (Approximate), Expires: 04/23/2023 [facility] Comment on above: Expected: 04/23/2022 (Approximate), Expires: 04/23/2023 Start: 12-20-2021 Influenza vaccination Influenza Vacc ine (#1) [facility] Start: 08-12-2021 COVID-19 Vaccine (3 - Booster for Pfizer series) COVID-19 Vaccine (3 - Booster for Pfizer series) [facility] Start: 08-01-2021 Cervical cancer screen Cervical canc er screen [place] Start: 08-01-2021 Screening for malign ant neoplasm of cervix Cervical cancer screen [facility] Work Phone: Start: 12-20-2020 Influenza vaccination Flu vacc ine (Season Ended) [facility] Work Phone: Start: 02-02-2020 Pneumococcal Vaccine : Pediatrics (0 to 5 Years) and At-Risk Patients (6 to 49 Years) (2 of 2 - PCV) Pneumococcal Vaccine: Pediatrics (0 to 5 Years) and At-Risk Patients (6 to 49 Years) (2 of 2 - PCV) [facility] Start: 02-02-2020 Pneumococcal Vaccine : Pediatrics (0 to 5 Years) and At-Risk Patients (6 to 64 Years) (2 - PCV) Pneumococcal Vaccine: Pediatrics (0 to 5 Years) and At-Risk Patients (6 to 64 Years) (2 - PCV) [facility] Start: 02-02-2020 Pneumococcal Vaccine : Pediatrics (0 to 5 Years) and At-Risk Patients (6 to 64 Years) (2 of 2 - PCV) Pneumococcal Vaccine: Pediatrics (0 to 5 Years) and At-Risk Patients (6 to 64 Years) (2 of 2 - PCV) [facility] Start: 03-30-2019 End: 03-30-2019 Office Visit 03/30/2019 Office Visit Obstetrics and Gynecology Shante Worley MD [address] [place] [address], [address] [place] [address] [phone] [facility] Start: 2019 Screening for malign ant neoplasm of breast Mammogram [facility] Start: 01-28-2019 Influenza vaccination Flu vaccine (# 1) [place], [place] Comment on above: Postponed from 12/20 (Patient Refused) Start: 01-05-2019 End: 01-05-2019 Office Visit 01/05/2019 Office Visit Obstetrics and Gynecology Shante Worley MD [address] [place] [address], [place], [address] [place] [address] [phone] [facility] Start: 12-28-2018 End: 12-28-2018 Office Visit 12/28/2018 Office Visit Family Medicine Estefania Griggs, 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 Start: 12-20-2018 Influenza vaccination Flu vaccine (# 1) [place], [place] Start: 2000 Screening for malign ant neoplasm of cervix HPV/Cotest [facility] Start: 1998 DTaP/Tdap/Td vaccine (1 - Tdap) DTaP/Tdap/Td vaccine (1 - Tdap) [place] Start: 1998 Hepatitis A Vaccines (1 of 2 - Risk 2-dose series) Hepatitis A Vaccines (1 of 2 - Risk 2-dose series) [facility] Start: 1998 Hepatitis B vaccine (1 of 3 - Risk 3-dose series) Hepatitis B vaccine (1 of 3 - Risk 3-dose series) [facility] Work Phone: Start: 1998 Hepatitis B Vaccines (1 of 3 - 19+ 3-dose series) Hepatitis B Vaccines (1 of 3 - 19+ 3-dose series) [facility] Start: 1997 Diabetes mellitus screening Diabetes Screening [facility] Start: 1995 COVID-19 Vaccine (1) COVID-19 Vaccin e (1) [facility] Work Phone: Start: 1991 Depression Monitoring Depression [facility] Start: 1991 Depression Screening Depression Scre ennanci [facility] Start: 1985 Pneumococcal 0-64 ye ars Vaccine (1 of 1 - PPSV23) Pneumococcal 0-64 years Vaccine (1 of 1 - PPSV23) [place] Start: 1980 Hepatitis A Vaccines (1 of 2 - Risk 2-dose series) Hepatitis A Vaccines (1 of 2 - Risk 2-dose series) [facility] Start: 1980 MMR Vaccines (1 of 1 - Standard series) MMR Vaccines (1 of 1 - Standard series) [facility] Start: 1979 Hepatitis B Vaccines (1 of 3 - 3-dose series) Hepatitis B Vaccines (1 of 3 - 3-dose series) [facility] Start: 1979 HIV screening HIV Screening [facility] Start: 1979 Lipid panel Lipid Panel [facility] Start: 1979 Screening for malign ant neoplasm of colon [facility] Start: 1979 Yearly Adult Physical Yearly Adult P [facility] Bacteria identified in Blood by Culture [facility] Work Phone: Biopsy endometrium Biopsy endome trium Procedures Routine Abnormal uterine bleeding (AUB) Atypical endometrial cells on Pap smear Ordered: 06/07/2022 [facility] Comment on above: Ordered: 06/07/2022 C reactive protein [Mass/volume] in Serum or Plasma [facility] CBC W Auto Different ial panel - Blood [facility] Comprehensive metabo lic 2000 panel - Serum or Plasma [facility] Cytology Cervical or vaginal smear or scraping study Pap Smear Pathology and Cytology Routine Severe dysplasia of cervix (WESTON III) Screening for cervical cancer 04/23/2022 12:19 PM EST [facility] Cytology Cervical or vaginal smear or scraping study Pap Smear Pathology and Cytology Routine Well woman exam with routine gynecological exam 08/24/2024 12:22 PM EDT [facility] EKG 12 Lead - Chest Pain EKG 12 Lead - Chest Pain ECG STAT 08/11/2020 5:25 PM EDT [facility] Work Phone: EMPOWER MULTI-CANCER (2 + 38) EMPOWER MULTI-CANCER (2 + 38) Lab Routine Family history of malignant neoplasm of breast 08/24/2024 11:04 AM EDT [facility] Erythrocyte sedimentation rate [facility] Hepatitis C virus genotype [Identifier] in Blood by CHANDANA with probe detection [facility] HPV High Risk PCR HPV High Risk PCR Microbiology Routine Severe dysplasia of cervix (WESTON III) Screening for cervical cancer 04/23/2022 12:19 PM EST [facility] HPV High Risk PCR HPV High Risk PCR Microbiology Routine Well woman exam with routine gynecological exam 08/24/2024 12:22 PM EDT [facility] Patient referral [facility] Work Phone: PCR for Hepatitis C [facility] Procedure [facility] Procedure [facility] Procedure [facility] SURESWAB(R) ADVANCED VAGINITIS PLUS, TMA ([facility]) Sureswab(R) Advanced Vaginitis Plus, TMA ([facility]) Lab Routine Abnormal uterine bleeding (AUB) Ordered: 06/07/2022 [facility] Comment on above: Ordered: 06/07/2022 Tissue exam [facility] Work Phone: Comment on above: Release Upon Orderin g for 1 Occurrences starting 07/10/2022 Tissue exam Tissue exam Path ology and Cytology Routine Atypical endometrial cells on Pap smear ASCUS with positive high risk HPV cervical Ordered: 06/07/2022 [facility] Work Phone: Comment on above: Ordered: 06/07/2022 [facility] Immunizations Immunization Date Immunization Notes Care Provider [facility] 06-17-2021 Covid-19, Pfizer Gra y Top, Do Not Dilute, (Age 12 Y+), Im, L Shante Worley MD Work Phone: [facility] 11-03-2020 Pfizer-BioNTech COVI D-19 Vacc 30 MCG/0.3ML Intramuscular Suspension Elizabeth Tapia Work Phone: [facility] 10-24-2020 Pfizer-BioNTech COVI D-19 Vacc 30 MCG/0.3ML Intramuscular Suspension Elizabeth Tapia Work Phone: [facility] Work Phone: Comment on above: Series: 10-01-2020 Pfizer-BioNTech COVI D-19 Vacc 30 MCG/0.3ML Intramuscular Suspension Elizabeth Tapia Work Phone: [facility] 02-01-2019 pneumococcal polysaccharide vaccine, 23 valent Blanca Lindsey MD Work Phone: [facility] 02-01-2019 Seasonal, quadrivale nt, recombinant, injectable influenza vaccine, preservative free Blanca Lindsey MD Work Phone: [facility] 02-01-2019 tetanus toxoid, redu mahin diphtheria toxoid, and acellular pertussis vaccine, adsorbed Blanca Lindsey MD Work Phone: [facility] 02-01-2019 influenza virus vacc ine, unspecified formulation Shante Worley MD Work Phone: [facility] 02-24-2018 influenza virus vacc ine, unspecified formulation Blanca Lindsey MD Work Phone: [facility] Work Phone: 02-24-2018 influenza, injectabl e, quadrivalent, preservative free [facility] 01-02-2017 Influenza Vaccine, unspecified formulation [facility] [place] 01-02-2017 influenza virus vacc ine, unspecified formulation Nicki Nguyen Work Phone: [facility] Work Phone: Comment on above: Series: 02-08-2013 Influenza virus vaccine [facility] 02-10-2012 pneumococcal vaccine , unspecified formulation [facility] Pfizer-BioNTech COVI D-19 Vacc 30 MCG/0.3ML Intramuscular Suspension Elizabeth Tapia Work Phone: -[facility] Work Phone: Comment on above: 09/21/20 Series: Payers Date Payer Category Payer Medicaid HMO [employer] [id number] 2023 Self-pay 2023 Medicaid [id number] 2023 Blue Cross Blue Shie ld (Indemnity or Managed Care) - Out of State BCBS OUT OF STATE [facility] [id number] 2023 Unknown 2023 Unknown [id number] 2020 Medicaid [id number] 2019 Unknown [employer]OUNT ADVANT AGE [employer]ANTAGE [id number] 2019-Present [phone] [address] [place] [address] [id number] 2016 Private Health Insurance [facility] xxxxxxxxx 2016-Present [phone] [address] [place] [address] xxxxxxxxx [id number] 1979 Unknown [id number] 1979 Unknown [id number] 1979 Unknown [id number] Private Health Insurance [id number] Unknown [id number] Unknown [id number] Unknown [id number] Unknown 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; 2 cups per day; Start: 12-11-2018 End: 07-10-2022 Alcohol intake No [facility] Start: 07-09-2018 Tobacco Comment pt also vapes [place] Start: 1980 Sex Assigned At Not on file [place] Start: 01-11-2019 End: 02-03-2019 Tobacco smoking status NHIS Former smoker [place] End: 12-28-2018 History of tobacco use Current smoker [place] Start: 08-20-2003 End: 12-28-2018 History of tobacco use Cigarette Smoker [place] Start: 01-11-2019 History SDOH Financial 5 [place] Start: 01-11-2019 History SDOH Food Worry 1 [place] Start: 01-11-2019 End: 07-10-2022 History SDOH Transport Med 2 [facility] [place] Start: 04-06-2020 End: 06-02-2024 Tobacco use and exposure Never used [facility] Start: 04-06-2020 End: 08-24-2024 Alcohol intake Current non-drinker of alcohol (finding) [facility] Work Phone: Start: 04-13-2022 End: 12-24-2023 Exposure to SARS-CoV-2 (event) Not sure [facility] Start: 04-27-2014 End: 04-27-2014 Tobacco smoking status NHIS Unknown if ever smoked [facility] Start: 07-22-2013 Occasional [facility] Start: 06-20-2022 None [facility] Start: 07-22-2013 Cigarettes [facility] Start: 1980 Sex Assigned At Female [facility] Within the last year , have you been afraid of your partner or ex-partner? No [facility] In the past 12 month s, has lack of transportation kept you from medical appointments or from getting medications? No [facility] Start: 02-07-2022 Gender identity Identifies as female gender (finding) [facility] Start: 02-07-2022 Sexual orientation Heterosexua l (finding) [facility] Start: 03-24-2024 Alcoholic beverage intake Ex-drinker (finding) [facility] (I/We) worried wheth er (my/our) food would run out before (I/we) got money to buy more. Never true [facility] Start: 03-24-2024 Sexual orientation Choose not to disclose [facility] Start: 11-19-2021 End: 07-20-2024 Sex Female (finding) [facility] NEGATED: Highlighted row Denies Alcohol Use (History) Denies Alcohol Use (History) [facility] Work Phone: Comment on above: glass of wine X3 per week; Goals Date Patient Goal Desired Activity /State Comment on above: Pt would like to los e 20 lbs Barriers: time constraints Plan for overcoming my barriers: increase exercise to 4 x week Confidence: 8/10 Anticipated Goal Completion Date: 01/12/20 Formatting of this n ote might be different from the original. Pt would like to lose 20 lbs Barriers: time constraints Plan for overcoming my barriers: increase exercise to 4 x week Confidence: 8 Anticipated Goal Completion Date: 01/12/20 Clinical Notes [...] message to call the screening program at [phone] - voicemail not set up [facility] 09-06-2024 Miscellaneous Notes Formattin g of this note might be different from the original. 1st attempt MyChart message sent 08/27/24 2nd attempt called patient Unable to leave message to call the screening program at [phone] - voicemail not set up MyChart message sent to have patient call screening program if still interested in scheduling a screening colonoscopy. documented in this encounter [facility] 08-27-2024 Telephone encounter Note Form atting of this note might be different from the original. MyChart message sent to have patient call screening program if still interested in scheduling a screening colonoscopy. [facility] 08-25-2024 Telephone encounter Note Form atting of this note might be different from the original. Rx for bv and yeast sent [facility] 08-25-2024 Miscellaneous Notes Formattin g of this note might be different from the original. Rx for bv and yeast sent documented in this encounter [facility] 08-24-2024 History of Presen t illness Narrative [...] Age of Onset Macular degeneration Mother Other ([address]) Father blood infection; liver dis; septic-age 59 [...] Resource Strain: Low Risk (06/17/2023) Received from [facility] Overall Financial Resource Strain (CARDIA) Difficulty of Paying Living Expenses: Not very hard Food Insecurity: No Food Insecurity (03/24/2024) Received from [facility] Hunger Vital Sign Worried About Running Out of Food in the Last Year: Never true Ran Out of Food in the Last Year: Never true Transportation Needs: No Transportation Needs (03/24/2024) Received from [facility] PRAPARE - Transportation Lack of Transportation (Medical): No Lack of Transportation (Non-Medical): No Physical Activity: Not on file Stress: Not on file Social Connections: Not on file Intimate Partner Violence: Not At Risk (03/24/2024) Received from [facility] Humiliation, Afraid, Rape, and Kick questionnaire Fear of Current or Ex-Partner: No Emotionally Abused: No Physically Abused: No Sexually Abused: No Housing Stability: Low Risk (03/24/2024) Received from [facility] Housing Stability Vital Sign Unable to Pay [...] Antigen-Antibody Screen 6. Screening for colon cancer [facility] Gastroenterology 7. Family history of malignant neoplasm [...] CARVE-OUT LAB: SPECIMEN MUST BE SENT TO [facility] FOR PROCESSING Bilateral screening mammogram with tomosynthesis [...] DELETE BELOW THIS LINE Department Information ID: [id number] Department:[facility] [address] [facility] [address] Dept: [phone] Dept Loc: [phone] Order Specific Question: Patient and physician allow Becky to share order details with 3rd republican genetic counselor? Answer: Yes Order Specific Question: [...] history of malignant neoplasm of breast [V16.3.ICD-9-CM] [facility] Gastroenterology Standing Status: Future Standing Expiration Date: 02/24/2025 Referral Priority: Routine Referral Type: Consultation Referral Reason: Specialty Services Required Requested Specialty: Gastroenterology Number of Visits Requested: 1 POCT , urine manually resulted Practice Administrator was offered to the patient for exam. Patient declined offer of fruit trimmer documented in this encounter [facility] 06-27-2024 History and physi whitney note Note Date/Time June 27, 2024 7:21pm [facility] [address] [place] [address] H&P Exam - Wound Care 06/27/24 1832 MR#: [id number] Acct: [id number] Name: LISA CHAUDHRY Rep #:[id number] : 1980 44 From: Mario Espino PCP: [...] she had been evaluated recently at the [facility] by Dr. Boni Lambert, a specialist in [...] smoking approximately 7 cigarettes/day. She also vapes. [facility] Medical History Skin necrosis Non-pressure chronic ulcer [...] Recorded Date Recorded By Document 06/23/24 10:28 [facility] [id number] 06/23/24 11:24 [facility] 06/23/24 10:28 - Today's Visit Information [...] Pain Free? Yes Communication Assessment Preferred language Brazilian Concrete Building Assembler Required No Able to Read Yes Able [...] in Ability to Perform Denies Any Declines Culture/Anglican/Superintendent Colliery Cultural/Anglican Needs that may affect No Treatment Plan Teaching: Wound Center *Welcome to the Wound Center -Person Taught Patient -Teaching Method Discussion -Response to teaching Verbalize Understanding WC - Nurse 1 - General Ulcer Measurement Start: 06/23/24 10:28 Freq: Status: Active Protocol: Activity Type Activity Date Activity User E-sign Co-sign Detail Recorded Client Recorded Date Recorded By Document 06/23/24 10:28 BMF [id number] 06/23/24 11:24 BMF Edit Result 06/23/24 10:28 BMF (1) [id number] 06/23/24 11:47 BMF (1) #16 L Upper Calf Med - [...] Large (67-100%) -Necrotic Tissue Type Eschar -Texture (Chreelle-wound Skin Appearance) Assessed, Scarring -Moisture (Cherelle-wound Skin [...] Date Recorded By Document 06/23/24 11:44 DS [id number] 06/23/24 12:40 DS 06/23/24 11:44 Wound Center [...] Procedure Not Tolerated Well -Debridement - Subq, 20sq cm No #1 R Lat Calf [...] Recorded Date Recorded By Document 06/23/24 12:03 [id number] 06/23/24 12:05 GM Edit Result 06/23/24 12:03 GM (1) [id number] 06/23/24 12:14 GM (1) right - Lotion [...] 0-10 Numeric Is Patient Pain Free? Yes WC - Visit Discharge Discharge Condition Stable Ambulatory Status Ambulatory Transportation Private Auto Charges/Coding Multi Select Codes Visit Charges Office Visit/Consults: 22058 OV L4 New 45 min Integumentary Integumentary CPT Codes: 95769 Suzanna subq tissue 20 sq cm/< Assessment/Plan [...] We are to request records from the [facility], including those from Dr. Boni Lambert, who [...] Cosigner Signature (if applicable): CC: ~ Signed [facility] Work Phone: [phone] 810-173603-09-2025 History and physical note [facility] [address] [place] [address] H&P Exam - Wound Care 06/27/24 1832 MR#: [id number] Acct: [id number] Name: LISA CHAUDHRY Rep #:[id number] : 1980 44 From: Mario Espino PCP: [...] she had been evaluated recently at the [facility] by Dr. Boni Lambert, a specialist in [...] smoking approximately 7 cigarettes/day. She also vapes. [facility] Medical History Skin necrosis Non-pressure chronic ulcer [...] Start: 06/23/24 10:28 Freq: Status: Active Protocol: JESSY.LOWEXT Activity Type Activity Date Activity User E-sign Co-sign Detail Recorded Client Recorded Date Recorded By Document 06/23/24 10:28 [facility] [id number] 06/23/24 11:24 [facility] 06/23/24 10:28 - Today's Visit Information [...] Pain Free? Yes Communication Assessment Preferred language Brazilian Concrete Building Assembler Required No Able to Read Yes Able [...] in Ability to Perform Denies Any Declines Culture/Anglican/Superintendent Colliery Cultural/Anglican Needs that may affect No Treatment Plan Teaching: Wound Center *Welcome to the Wound Center -Person Taught Patient -Teaching Method Discussion -Response to teaching Verbalize Understanding - Nurse 1 - General Ulcer Measurement Start: 06/23/24 10:28 Freq: Status: Active Protocol: Activity Type Activity Date Activity User E-sign Co-sign Detail Recorded Client Recorded Date Recorded By Document 06/23/24 10:28 [facility] [id number] 06/23/24 11:24 BM Edit Result 06/23/24 10:28 [facility] (1) [id number] 06/23/24 11:47 [facility] (1) #16 L Upper Calf Med [...] Appearance) -Ulcer Cleansing S (more content not included)...[facility] 06-23-2024 Evaluation note* Diagnosis Onset Date Resolution [...] 2024 10:08am Seizures chronic June 23 10:08am [facility] Work Phone: 1(844) 602-606112-07-2024 Plan of care note* Plan of Care - Jason Hoskins RN - 03/27/2024 5:25 PM EST Problem: Actual or potential alteration in health Goal: Absence of healthcare acquired conditions 03/27/20241724 by Jason Hoskins, KATIUSKA Outcome: Completed 03/27/2024952 by Jason Hoskins, RN [...] of physical functioning 03/27/20241724 by Jason Hoskins, RN Outcome: Completed 03/27/2024952 by Jason Hoskins, RN Outcome: Partially Met Goal: Able to achieve maximum level of psychosocial functioning 03/27/20241724 by Jason Hoskins, RN Outcome: Completed 03/27/2024952 by Jason Hoskins RN Outcome: Partially Met [id number] Miscellaneous Notes* Plan of Care - Jason Hoskins RN - 03/27/2024 5:25 PM EST Problem: Actual or potential alteration in health Goal: Absence of healthcare acquired conditions 03/27/20241724 by Jason Hoskins RN Outcome: Completed 03/27/2024 09 by Jason Hoskins RN Outcome: Partially Met Goal: Knowledge of Interdisciplinary Plan of Care 03/27/20241724 by Jason Hoskins RN Outcome: Completed 03/27/2024952 by Jason Hoskins RN Outcome: Partially Met Goal: Knowledge of Enviroment 03/27/20241724 by Jason Hoskins, KATIUSKA Outcome: Completed 03/27/2024952 by Jason Hoskins RN Outcome: Partially Met Problem: Pressure Injury, Risk of Goal: Absence of pressure injury 03/27/20241724 by Jason Hoskins, RN Outcome: Completed 03/27/2024952 by Jason Hoskins RN Outcome: Partially Met Problem: Falls, Risk of Goal: Absence of falls 03/27/20241724 by Jason Hoskins, KATIUSKA Outcome: Completed 03/27/2024952 by Jason Hoskins, RN Outcome: Partially Met Goal: Absence of physical injury 03/27/20241724 by Jason Hoskins, KATIUSKA Outcome: Completed 03/27/2024952 by Jason Hoskins, RN Outcome: Partially Met Problem: Skin Integrity - Impaired Goal: Wound healing 03/27/20241724 by Jason Hoskins, RN Outcome: Completed 03/27/2024952 by Jason Hoskins, RN Outcome: Partially Met Goal: Absence of new skin breakdown 03/27/20241724 by Jason Hoskins, RN Outcome: Completed 03/27/2024952 by Jason Hoskins, RN Outcome: Partially Met Goal: Knowledge of skin protection measures 03/27/2024 172 by Jason Hoskins RN Outcome: Completed 03/27/2024952 by Jason Hoskins RN Outcome: Partially Met Problem: Pain Goal: Reduced pain sensation 03/27/20241724 by Jason Hoskins, KATIUSKA Outcome: Completed 03/27/2024952 by Jason Hoskins RN Outcome: Partially Met Goal: Control of acute pain to acceptable level 03/27/20241724 by Jason Hoskins RN Outcome: Completed [...] Met * Plan of Care - Angelica iHll RN - 03/26/2024 11:36 PM EST Problem: [...] % 50.2 (H) 49.9 (H) 48.4 (H) [facility] Reference Range & Units 03/24/24 16:47 Color, [...] examination, documentation, and discharge. documented in this [id number] History of Present illness Narrative* Jason Hoskins RN - 03/27/2024 5:00 PM EST Patient discharged to [facility]. * Jason Hoskins RN - 03/27/2024 3:30 PM EST OR contacted again regarding patient's ride. RN updated [facility] that no one called the hospital back about a ride. [facility] asked for hospitals number and said someone would be calling shortly for ride information. * Rita Casey LISW-S - 03/27/2024 2:56 PM EST Care Management Progress Note Date: 03/27/2024 Time: 2:56 PM Patient Name: Lisa Chaudhry Date of : 1980 Discharge Plan: D/C Disposition: Rehab Facility Final D/C Agency/Destination: ([facility]) Discharging Transportation Plan: Discharge Plan Status: VC faxed DOD bundle to OR per handoff request. Assessment and Background Information: * Ema Caldwell MD - 03/27/2024 2:[address] Abd/Pelvis showed a large stool burden. Laxatives given with good results . No more abdominal pain. Home today. * Jason Hoskins, RN - 03/27/2024 2:30 PM EST OR notified of pending discharge today. OR stated the call center will be calling [...] IV vancomycin however commenced overnight by the qualitative researcher RETURNED TELEPHONE EQUIPMENT APPRAISER In the interim we will continue current [...] Lazaro MD 03/26/2024 10:[address] Chest Thorax With Contrast Final Result [...] provider or the ordering physician. Workstation ID: [id number] Time spent managing this highly complex patient was at least 50 minutes Clarence Wynn MD * Jason Hoskins, RN - 03/26/2024 3:08 PM EST This [...] refused to try enema again. * Jason Hoskins, RN - 03/26/2024 12:45 PM EST Patient refusing to drink miralax at this time. * Nicki Moyer LSW - 03/26/2024 11:18 AM EST Care Management Progress Note Date: 03/26/2024 Time: 11:18 AM Patient Name: Lisa Chaudhry Date of : 1980 Discharge Plan: [facility]/[phone] at discharge D/C Disposition: Rehab Facility Final D/C Agency/Destination: ([facility]) Discharging Transportation Plan:OR to picking belt operator pt when discharge ready Discharge Plan Status: SW sent clinical for ADAM to OR. Hearing Officer would like Day of discharge bundle faxed when an established discharge date is set. Please fax info to [phone] Assessment and Background Information: * Lisa Sarmiento [...] 03/25/2024 MRSA nares was ordered this am. TORSTEN FAIRCHILD, R.Ph. * Clarence Wynn MD - [...] provider or the ordering physician. Workstation ID: [id number] Time spent managing this highly complex patient was at least 50 minutes Clarence Wynn MD documented in this [id number] NoteDISCHARGE SUMMARY Patient: Lisa Chaudhry Date of : 1980 Site: [facility] Family Provider: Brandi, Physician Admit Date: 03/24/2024 Discharge Date/Time: 03/27/24 [...] Hypokalemia/hypophosphatemia/mild hyponatremia, all r (more content not included)...[facility]12-07-2024 NoteCT Abd/Pelvis showed a large stool burden. Laxatives given with good results . No more abdominal pain. Home today. AUTHENTICATED BY EMA CALDWELL, ON 03/27/2024 14:54:11[facility]12-07-2024 Hospital course Narrative* Clarence Wynn MD - 03/27/2024 2:52 PM EST DISCHARGE SUMMARY Patient: Lisa Chaudhry Date of : 1980 Site: [facility] Family Provider: Brandi, Physician Admit Date: 03/24/2024 Discharge Date/Time: 03/27/24 [...] times a day . Physician(s) Family Provider: Brandi, Physician, Phone: None Address: [facility] Follow Up: No follow-up provider specified. Subjective: I saw and examined the patient this afternoon with RN. Patient felt well [facility], and had finished her lunch without [...] on 03/27/24, 2:52 PM documented in this [id number] Hospital Discharge instructions * Discharge Instructions* Clarence [...] be sent through Care Everywhere. * Constipation (Brazilian) * UTI (Urinary Tract Infection): Female (Brazilian) * Heroin Use and Withdrawal: General Info (Brazilian) documented in this [id number] Plan of care note* Plan of Care [...] level of psychosocial functioning Outcome: Partially Met [place] [id number] Plan of care note* Plan of Care [...] level of psychosocial functioning Outcome: Partially Met [place] [id number] NoteHOSPITALIST PROGRESS NOTES Lisa Chaudhry is a [...] IV vancomycin however commenced overnight by the qualitative researcher RETURNED TELEPHONE EQUIPMENT APPRAISER In the interim we will continue current [...] responsive and follows command (more content not included)...[facility]12-06-2024 Note* Utilization Review - Abbie Babin [...] 18 169/112 Abnormal 98 None (Room air) 03/25/242 -- 92 -- 154/92 Abnormal -- -- 03/25/240 -- 90 -- 161/98 Abnormal -- -- [...] for discharge to rehab facility. Date TBD [id number] Consult note* Jamal Black, SALES AND OPERATIONS TRAINEE - 03/26/2024 10:16 AM ESTAssociated Order(s): IP CONSULT TO GENERAL SURGERY Surgical Consultation Reason for Consult Intractable nausea, vomiting, and abdominal pain History of Present Illness Lisa Chaudhry is a 43 y.o. female who presented to the ED due to altered mental status from [facility]. Patient was treated with Narcan in the [...] oxalate (LEXAPRO) 5 MG tablet 01/31/24 Yes Provider, MD Mick buprenorphine-nalOXone (SUBOXONE) 8-[address] 1 (one) each (1 Film total) under the tongue daily . Provider, Historical, MD busPIRone (BUSPAR) 10 MG tablet Take [...] Caldwell MD at 03/27/2024 2:51 PM EST [facility] Work Phone: 1(496) 775-579612-06-2024 NoteSurgical Consultation Reason for Consult Intractable nausea, vomiting, and abdominal pain History of Present Illness Lisa Chaudhry is a 43 y.o. female who presented to the ED due to altered mental status from the [facility]. Patient was treated with Narcan [...] 2 (two) times a day . Provider, Mick, PAST MEDICAL HISTORY Past Medical History: Diagnosis [...] Reaction Unknown: Please investigate and enter into [facility]. Other reaction(s): Vomiting Reaction Unknown: Please investigate and enter into [facility]. Reaction Unknown: Please investigate and enter into [facility]. Other reaction(s): Vomiting Reaction Unknown: Please investigate and enter into [facility]. REVIEW OF LABS AND IMAGING See HPI [...] suds enema Lactulose and Mag Citrate Jamal Black, CHANDU AUTHENTICATED BY EMA CALDWELL, ON 03/27/2024 14:51:53[facility]12-06-2024 Consult note* Jamal Black, [facility] - 03/26/2024 10:16 AM ESTAssociated Order(s): IP CONSULT TO GENERAL SURGERY Surgical Consultation Reason for Consult Intractable nausea, vomiting, and abdominal pain History of Present Illness Lisa Chaudhry is a 43 y.o. female who presented to the ED due to altered mental status from [facility]. Patient was treated with Narcan in the [...] Soap suds enema Lactulose and Mag Citrate Jmaal Black CNP Cosigned by Ema Caldwell MD at 03/27/2024 2:51 PM EST * Alejandrina Roberson, PT - 03/25/2024 10:08 AM [...] Discharge needs Discharge Plan: to return to [facility] ([facility]) Discharging Transportation Plan: [facility] /[phone] Discharge Plan Status: SW consutled to see pt re: discharge needs. [facility] admitted on [facility], [facility]. ILAN met with pt in room. Pt responded to questions but was head to toe covered in sheet. Discussed discharge plan. Pt not feeling well this a.m. Statesshe is uncertain if she will return to [facility]. SW expressed concern re: pt not going back to [facility] and explained that [facility] was best safety option for pt at this time. SW called [facility] to confirm [facility] acceptance of pt's return,when medically stable, awaiting call back from pt's portrait studio photographer at the facility. 2:25 PM [facility] called back and confirmed acceptance of pt when medically stable. They would like clinical faxed to [phone] when pt is discharged for ADAM 2:36 PM Assessment and Background Information: Living Arrangements: Alone Support Systems: None Assistance Needed: none requested Type of Residence: Independent living Prior to Admission Home Care Services: No documented in this [id number] Plan of care note* Plan of Care [...] level of psychosocial functioning Outcome: Not Met [id number] NoteHOSPITALIST PROGRESS NOTES Lisa Chaudhry is a [...] degrees C) TempSrc: Temporal (more content not included)...[facility] 03-25-2024 Consult note* Alejandrina Roberson, PT - 03/25/2024 10:08 AM EST Physical Therapy PHYSICAL THERAPY SCREEN Patient was screened by Physical Therapy. Order discontinued at this time. Patient refused therapy/OOB activity x2 attempts. [id number] Consult note* Rainer Gleason - 03/25/2024 10:07 [...] Alicea OT at 03/25/2024 10:10 AM EST [id number] Consult note* Nicki Moyer LSW - 03/25/2024 8:10 AM EST Care Management Consult Note Date: 03/25/2024 Time: 8:10 AM Patient Name: Lisa Chaudhry Date of : 1980 Reason for Consult: Discharge needs Discharge Plan: to return to [facility] ([facility]) Discharging Transportation Plan: [facility] /[phone] Discharge Plan Status: SW consutled to see pt re: discharge needs. [facility] on [facility], [facility]. SW met with pt in room. Pt responded to questions but was head to toe covered in sheet. Discussed discharge plan. Pt not feeling well this a.m. Statesshe is uncertain if she will return to OR. SW expressed concern re: pt not going back to [facility] and explained that [facility] was best safety option for pt at this time. SW called [facility] to confirm [facility] acceptance of pt's return,when medically stable, awaiting call back from pt's portrait studio photographer at the facility. 2:25 PM [facility] called back and confirmed acceptance of pt when medically stable. They would like clinical faxed to [phone] when pt is discharged for ADAM 2:36 PM Assessment and Background Information: Living Arrangements: Alone Support Systems: None Assistance Needed: none requested Type of Residence: Independent living Prior to Admission Home Care Services: No [id number] Plan of care note* Plan of Care [...] of skin protection measures Outcome: Not Met [id number] Emergency department Note* Pete Maldonado RN - 03/24/2024 7:58 PM EST Report called to Tino CARRANZA [id number] Emergency department Note* Pete Maldonado RN - 03/24/2024 7:58 PM EST Report called to Tino CARRANZA * Micha Pedersen RN - 03/24/2024 7:40 PM EST Pt will be admitted to room [facility] with Tino CARRANZA assigned. * Antonieta Goodwin RN - 03/24/2024 7:40 PM EST Pt to go to Tino Blakely RN * Jessi Poe RN - 03/24/2024 7:03 PM EST Bed request/admit dispo Micha moncada RN/Cafe Assistant notified of pending admission. * Pete Maldonado RN - 03/24/2024 6:41 PM EST Patient medicated per JUN. No further needs at this time. * Pete Maldonado RN - 03/24/2024 6:31 PM EST Patient returned from CT, large episode of emesis in hallway. Pt cleaned up, RETURNED TELEPHONE EQUIPMENT APPRAISER aware, see orders. * Pete Maldonado RN [...] PM EST Straight cath attempt x2 by KATIUSKA Willoughby. Unsuccessful urine collection. Per Hiwot Hoover NP attempt after bolus of fluid. * Hiwot Hoover CNP - 03/24/2024 3:31 PM ESTAssociated Order(s): EKG 12- lead; Critical Care [facility] ATTENDING NOTE: NAME: Lisa Chaudhry CSN: [id number] 43 y.o. PCP: No, Physician History: Chief Complaint: Withdrawal and Altered Mental Status HPI: The history was obtained from the patient. Lisa is a 43 y.o. female who presents with a chief complaint of Withdrawal and Altered Mental Status. Past medical history of drug abuse. 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 Patient was being seen there [...] 189/89. Afebrile. Nontachycardic. 98% on room air. Lnaho-sx-ehbu glucose was checked 133. Patient is in [...] Resource Strain: Low Risk (06/17/2023) Received from [facility] Overall Financial Resource Strain (CARDIA) Difficulty of Paying Living Expenses: Not very hard Food Insecurity: Food Insecurity Present (06/17/2023) Received from [facility] Hunger Vital Sign Worried About Running Out of Food in the Last Year: Sometimes true Ran Out of Food in the Last Year: Sometimes true Transportation Needs: No Transportation Needs (06/17/2023) Received from [facility] PRAPARE - Transportation Lack of Transportation (Medical): No Lack of Transportation (Non-Medical): No Housing Stability: Unknown (06/17/2023) Received from [facility] Housing Stability Vital Sign Unable [...] Reaction Unknown: Please investigate and enter into Incap. Other reaction(s): Vomiting Reaction Unknown: Please investigate [...] All other components within normal limits Narrative: [facility] Laboratory Services has implemented the eGFR calculation [...] Procedure Abnormality Status --------- ------ CBC Auto Differential[[id number]] Abnormal Final result Please view results for these tests on the individual orders. TROPONIN TSH WITH REFLEX FREE T4 CT Head Or Brain Without Contrast Final Result IMPRESSION: No acute large vessel infarct, acute intracranial hemorrhage, or intracranial mass lesion. Electronically signed by: Rubén Yost MD 03/24/2024 06:40 PM [facility] XR Chest 1 View Final Result Radiographically, there is no cardiopulmonary disease. If you have questions or concerns regarding your Radiology (Medical Imaging) report, please reach out to your family provider or the ordering physician. Workstation ID: [id number] Procedures: EKG 12-lead Date/Time: 03/24/2024 4:05 PM Performed by: Hiwot Hoover CNP Authorized by: Hiwot Hoover CNP Rhythm: sinus rhythm BPM: 58 Conduction: conduction normal ST Segments: ST segments normal normal [place] interval normal QRS interval normal QT interval [...] 10 mg (10 mg Intravenous Given 03/24/241832) metoclopramide (REGLAN) injection 10 mg (10 mg [...] ED Course User Index [RA] Hiwot Hoover, SALES AND OPERATIONS TRAINEE Lisa is a 43-year-old female who presents emergency room for complaints of lethargy, weakness, and opioid withdrawal. Patient has a history of IV drug abuse. She has been at a recovery center, [facility]. States last used 3 days ago. She [...] available in inpatient encounters. Please contact a technical systems architect. Hiwot Hoover CNP ED SALES AND OPERATIONS TRAINEE [facility] Hiwot Hoover CNP 03/24/241910 Hiwot Hoover CNP 03/24/242019 Cosigned by Luis Fernando Lopez MD at 03/25/2024 7:30 AM EST * Antonieta Goodwin RN - 03/24/2024 3:21 PM EST Hiwot Hoover CNP at bedside attempting US IV. * Antonieta Goodwin RN - 03/24/2024 3:13 PM EST Blood sugar 133. * Antonieta Goodwin RN - 03/24/2024 3:13 PM EST Pt presents from [facility] by otr owner operator truck driver. Pt is unresponsive. Per [facility] pt is in withdrawal from opiates. Last use was approximately 3 days ago. Today pt received suboxone and 25 mg phenergan x2. States pt has been super sleepy, weak, bad color, frail, emotional. * Antonieta Goodwin RN - 03/24/2024 3:12 PM EST Nasal narcan given 2 mg admin by KATIUSKA Willoughby per Dr. Lopez. Pt talking, still drowsy. documented in this [id number] History and physical note* Yohan De La Garza, SALES AND OPERATIONS TRAINEE - 03/24/2024 7:56 PM EST Lisa Chaudhry [...] Reaction Unknown: Please investigate and enter into Incap. Other reaction(s): Vomiting Reaction Unknown: Please investigate and enter into Incap. Reaction Unknown: Please investigate and enter into EPIC. Other reaction(s): Vomiting Reaction Unknown: Please investigate and enter into Incap. Home Medications: Prior to Admission medications Medication [...] times a day . Provider, MD Mick Current Medications: cefTRIAXone (ROCEPHIN) IVPB 1,000 mg [...] provider or the ordering physician. Workstation ID: [id number] EKG: Sinus rhythm Read by ED attending [...] Wynn MD at 03/25/2024 10:55 AM EST [id number] History and physical note* Yohan De La [...] Reaction Unknown: Please investigate and enter into Incap. Other reaction(s): Vomiting Reaction Unknown: Please investigate and enter into EPIC. Reaction Unknown: Please investigate and enter into EPIC. Other reaction(s): Vomiting Reaction Unknown: Please investigate and enter into Incap. Home Medications: Prior to Admission medications Medication Sig Start Date End Date Taking? Authorizing Provider escitalopram oxalate (LEXAPRO) 5 MG tablet 01/31/24 Yes Mick Blanchard MD buprenorphine-nalOXone (SUBOXONE) 8-[address] 1 (one) each (1 Film total) under the tongue daily . ProviderMick MD busPIRone (BUSPAR) 10 MG tablet Take [...] by: Rubén Yost MD 03/24/2024 06:40 PM [facility] XR Chest 1 View Final Result Radiographically, there is no cardiopulmonary disease. If you have questions or concerns regarding your Radiology (Medical Imaging) report, please reach out to your family provider or the ordering physician. Workstation ID: [id number] EKG: Sinus rhythm Read by ED attending [...] 03/25/2024 10:55 AM EST documented in this [id number] Emergency department Note* Micha Pedersen RN - 03/24/2024 7:40 PM EST Pt will be admitted to room 2004 with Tino CARRANZA assigned. [id number] Emergency department Note* Antonieta Goodwin RN - 03/24/2024 7:40 PM EST Pt to go to Tino Blakely [id number] Emergency department Note* Jessi Poe RN - 03/24/2024 7:03 PM EST Bed request/admit dispo Micha moncada RN/Cafe Assistant notified of pending admission. [id number] Emergency department Note* Pete Maldonado RN - 03/24/2024 6:41 PM EST Patient medicated per MAR. No further needs at this time. [id number] Emergency department Note* Pete Maldonado RN - 03/24/2024 6:31 PM EST Patient returned from CT, large episode of emesis in hallway. Pt cleaned up, RETURNED TELEPHONE EQUIPMENT APPRAISER aware, see orders. [id number] Emergency department Note* Pete Maldonado RN - 03/24/2024 5:46 PM EST Patient medicated per JUN. No further needs. [id number] Emergency department Note* Antonieta Goodwin RN - 03/24/2024 4:46 PM EST Lab unable to collect lactic blood draw. Hiwot WOLFE notified [id number] Emergency department Note* Pete Maldonado RN - 03/24/2024 4:45 PM EST Patient voided on bedpan, sample collected. [id number] Emergency department Note* Antonieta Goodwin RN - 03/24/2024 4:37 PM EST Lab remains at bedside for blood draw [id number] Emergency department Note* Pete Maldonado RN - 03/24/2024 3:55 PM EST X ray at bedside [id number] Emergency department Note* Pete Maldonado RN - 03/24/2024 3:51 PM EST Phlebotomy at beside [id number] Physician Emergency department Note* ED Attestation Note [...] completed their own examination, documentation, and discharge. [facility] Work Phone: 1(971) 423-658312-04-2024 Emergency department Note* Antonieta Goodwin RN - 03/24/2024 3:34 PM EST Straight cath attempt x2 by KATIUSKA Willoughby. Unsuccessful urine collection. Per Hiwot Hoover NP attempt after bolus of fluid. [id number] Physician Emergency department Note* Hiwot Hoover CNP - 03/24/2024 3:31 PM ESTAssociated Order(s): EKG 12-lead; Critical Care [facility] ATTENDING NOTE: NAME: Lisa Chaudhry CSN: [id number] 43 y.o. PCP: No, Physician History: Chief Complaint: Withdrawal and Altered Mental Status HPI: The history was obtained from the patient. Lisa is a 43 y.o. female who presents with a chief complaint of Withdrawal and Altered Mental Status. Past medical history of drug abuse. Patient presents to emergency room from [facility] with a otr owner operator truck driver. Patient was being seen there [...] 189/89. Afebrile. Nontachycardic. 98% on room air. Ddlcf-cz-yxeg glucose was checked 133. Patient is in [...] Resource Strain: Low Risk (06/17/2023) Received from [facility] Overall Financial Resource Strain (CARDIA) Difficulty of Paying Living Expenses: Not very hard Food Insecurity: Food Insecurity Present (06/17/2023) Received from [facility] Hunger Vital Sign Worried About Running Out of Food in the Last Year: Sometimes true Ran Out of Food in the Last Year: Sometimes true Transportation Needs: No Transportation Needs (06/17/2023) Received from [facility] PRAPARE - Transportation Lack of Transportation (Medical): No Lack of Transportation (Non-Medical): No Housing Stability: Unknown (06/17/2023) Received from [facility] Housing Stability Vital Sign Unable [...] Reaction Unknown: Please investigate and enter into [facility]. Reaction Unknown: Please investigate and enter into [facility]. Other reaction(s): Vomiting Reaction Unknown: Please investigate and enter into [facility]. ROS: Review of Systems Unable to perform [...] All other components within normal limits Narrative: [facility] has implemented the eGFR calculation [...] Procedure Abnormality Status --------- ------ CBC Auto Differential[[id number]] Abnormal Final result Please view results for [...] provider or the ordering physician. Workstation ID: [id number] Procedures: EKG 12-lead Date/Time: 03/24/2024 4:05 PM Performed by: Hiwot Hoover CNP Authorized by: Hiwot Hoover CNP Rhythm: sinus rhythm BPM: 58 Conduction: conduction normal ST Segments: ST segments normal normal [place] interval normal QRS interval normal QT interval [...] injection 2 mg (2 mg Subcutaneous Given 03/24/241538) ondansetron (ZOFRAN) injection 4 mg (4 mg Intravenous Given 03/24/24 174) hydrALAZINE (APRESOLINE) injection 10 mg (10 mg Intravenous Given 03/24/241832) metoclopramide (REGLAN) injection 10 mg (10 mg [...] ED Course User Index [RA] Hiwot Hoover, CHANDU Lisa is a 43-year-old female who presents emergency room for complaints of lethargy, weakness, and opioid withdrawal. Patient has a history of IV drug abuse. She has been at a recovery center, [facility]. States last used 3 days ago. She [...] available in inpatient encounters. Please contact a technical systems architect. Hiwot Hoover CNP ED [facility] MED SURG Hiwot Hoover CNP 03/24/241910 Hiwot Hoover CNP 03/24/242019 Cosigned by Luis Fernando Lopez MD at 03/25/2024 7:30 AM EST [id number] Emergency department Note* Antonieta Goodwin RN - 03/24/2024 3:21 PM EST Hiwot Hoover CNP at bedside attempting US IV. [id number] Emergency department Note* Antonieta Goodwin RN - 03/24/2024 3:13 PM EST Blood sugar 133. OzznVwfvil28-88-4999 Emergency department Triage note* Antonieta Goodwin RN - 03/24/2024 3:13 PM EST Pt presents from [facility] by otr owner operator truck driver. Pt is unresponsive. Per ORC pt is in withdrawal from opiates. Last use was approximately 3 days ago. Today pt received suboxone and 25 mg phenergan x2. States pt has been super sleepy, weak, bad color, frail, emotional. GbtsXrfxep22-29-6360 Emergency department Note* Antonieta Goodwin RN - 03/24/2024 3:12 PM EST Nasal narcan given 2 mg admin by KATIUSKA Willoughby per Dr. Lopez. Pt talking, still drowsy. MuhvHcoztb49-44-8692 Emergency department Note* Mónica Mcgowan RN - 12/23/2023 10:30 PM EDT Pt brought in by [facility] [employer]. Pt was found at [facility]. 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 Per [facility] EMS squad police went out to see [...] hospital but felt pressure to go by [place]. [employer] did not pink slip pt. DR Hernandez broughtto bedside and update with all information from [facility] and believe psychiatric evaluation for this pt is not need at this time. Mónica Mcgowan RN 12/23/232315 [facility] Work Phone: 1(499) 773-734109-03-2024 Emergency department Note* Mónica Mcgowan RN - 12/23/2023 10:30 PM EDT Pt brought in by [employer]. Pt was found at [employer]. 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 [employer] did not pink slip pt. DR Hernandez broughtto bedside and update with all information from [facility] squad and believe psychiatric evaluation for this pt is not need at this time. Mónica Mcgowan RN 12/23/232315 [facility] Work Phone: [phone]) 107-123307-10-2024 Telephone encounter Note* Telephone Encounter - Chayito Mccord MA - 10/29/2023 2:34 PM EDT Called pt to schedule pap. Unable to leave [facility] d/t voice mailbox not being set up. [facility] CenterYydapf85-76-6125 Miscellaneous Notes* Telephone Encounter - Chayito Mccord MA - 10/29/2023 2:34 PM EDT Called pt to schedule pap. Unable to leave [facility] d/t voice mailbox not being set up. * Telephone Encounter - Citlaly Bennett - 10/28/2023 1:21 PM EDT Tried calling patient 10/28/23. To schedule a repeat pap. No answer, No voicemail. * Telephone Encounter - Chayito Mccord MA - 09/25/2023 8:05 AM EDT Mychart [facility] sent to schedule appt * Telephone Encounter - Shante Worley MD - 09/24/2023 6:40 PM EDT Pt due for repeat pap ho leep. Please call and help schedule documented in this encounterSSt. Rita's HospitalAnfdee03-72-8559 Telephone encounter Note* Telephone Encounter - Citlaly Bennett - 10/28/2023 1:21 PM EDT Tried calling patient 10/28/23. To schedule a repeat pap. No answer, No voicemail. [facility] CenterQebltr32-03-5512 Miscellaneous Notes* Telephone Encounter - Citlaly Bennett - 10/28/2023 1:21 PM EDT Tried calling patient 10/28/23. To schedule a repeat pap. No answer, No voicemail. * Telephone Encounter - Chayito Mccord MA - 09/25/2023 8:05 AM EDT [employer] sent to schedule appt * Telephone Encounter - Shante Worley MD - 09/24/2023 6:40 PM EDT Pt due for repeat pap ho leep. Please call and help schedule documented in this encounterSSt. Rita's HospitalJiotip43-47-9505 Telephone encounter Note* Telephone Encounter - Chayito Mccord MA - 09/25/2023 8:05 AM EDT [employer] sent to schedule appt [facility] CenterHpdcqr38-18-2459 Telephone encounter Note* Telephone Encounter - Shante Worley MD - 09/24/2023 6:40 PM EDT Pt due for repeat pap ho leep. Please call and help schedule [facility] CenterFagsmz44-23-6708 NoteHNO ID: [id number] Author: YULISSA MADISON RN Service: Care Management [...] 19, 2023 TIME: 10:45 AM CONTACT #: [id number] NoteHNO ID: [id number] Author: YULISSA MADISON RN Service: Care Management [...] 19, 2023 TIME: 10:45 AM CONTACT #: [id number] NoteHNO ID: [id number] Author: AMAYA VÁZQUEZ PA-C Service: Hospital Medicine Author Type: Physician Acute Dialysis Nurse Type: Progress Notes Filed: 06/18/2023 13:33 Note Text: DEPARTMENT OF HOSPITAL MEDICINE PROGRESS NOTE SERVICE DATE: 06/18/2023 SERVICE TIME: 1:32 PM Hospital Medicine/Primary Attending: Mitchell Hannon MD NIGHT AND WEEKEND COVERAGE: [place] COVERAGE: Days: [phone], please page attending physician. Nights: [phone], please page [place] [facility] Night coverage pager [phone]. Subjective INTERVAL HPI: -ECHO completed this morning [...] and Airways Line Duration Peripheral 06/16/23 0837 [facility] Short Right Arm 20 Gauge 2 [...] NAME: Lisa Chaudhry DATE: 06/18/2023 TIME: 1:32 PMMer[facility] HospitalGxfreykh13-39-5916 NoteHNO ID: [id number] Author: RITO, AMAYA, PA-C Service: Hospital Medicine Author Type: Physician Acute Dialysis Nurse Type: Progress Notes Filed: 06/17/2023 13:53 Note Text: DEPARTMENT OF HOSPITAL MEDICINE PROGRESS NOTE SERVICE DATE: 06/17/2023 SERVICE TIME: 1:44 PM Hospital Medicine/Primary Attending: Mitchell Hannon MD NIGHT AND WEEKEND COVERAGE: [place] COVERAGE: Days: [phone], please page attending physician. Nights: [phone], please page [place] [facility] Night coverage pager [phone]. Subjective INTERVAL HPI: -reportedly found naked in [...] and Airways Line Duration Peripheral 06/16/23 0837 [facility] Short Right Arm 20 Gauge 1 [...] Amaya Vázquez PA-C PATIENT NAME: Lisa Chaudhry DATE (more content not included)...[facility] HospitalKyymhcvn61-87-5145 NoteHNO ID: [id number] Author: YULISSA MADISON RN Service: Care Management Author Type: Registered Nurse Type: Care Mgt Initial Assessment Filed: 06/17/2023 12:46 Note Text: CARE MANAGEMENT: ASSESSMENT AND DISCHARGE PLAN SERVICE DATE: June 17, 2023 SERVICE TIME: 12:30 PCP: Konrad Hampton DO Primary Contact: Extended Emergency Contact Information Primary Emergency Contact: Hakan Luis Mobile Relation: Mother Admission Status: Observation Insurance Provider: ANNETTE SULLIVAN PPO OOS Discharge Planning requested by: Per Department Practice Potential Transition Plans No Services Indicated Advance Directives Current Advance Directive: None Fleet Salesperson Attempted to Assist with AD Completion: Yes [...] Be able to go home, General wellness Thompson of Choice Explained: Thompson of Choice Given: No Reason Not Given: [...] court ordered one year IOP program at [facility] in 03/13. Pt denied current drug [...] 17, 2023 TIME: 12:30 PM CONTACT #: [id number] NoteHNO ID: [id number] Author: YULISSA MADISON RN Service: Care Management Author Type: Registered Nurse Type: Care Mgt Initial Assessment Filed: 06/17/2023 12:46 Note Text: CARE MANAGEMENT: ASSESSMENT AND DISCHARGE PLAN SERVICE DATE: June 17, 2023 SERVICE TIME: 12:30 PCP: Konrad Hampton DO Primary Contact: Extended Emergency Contact Information Primary Emergency Contact: TobyHakan Mobile Relation: Mother Admission Status: Observation Insurance Provider: [employer]UR[employer] PPO OOS Discharge Planning requested by: Per Department Practice Potential Transition Plans No Services Indicated Advance Directives Current Advance Directive: None Fleet Salesperson Attempted to Assist with AD Completion: Yes [...] Be able to go home, General wellness Thompson of Choice Explained: Thompson of Choice Given: No Reason Not Given: [...] court ordered one year IOP program at [facility] in 03/13. Pt denied current drug [...] 17, 2023 TIME: 12:30 PM CONTACT #: [id number] History of Present illness Narrative* Shante Worley [...] stated that they are currently in the [facility]. If the patient is a minor, permission has been obtained by the parent or guardian for the patient to receive medical care at this visit. [facility] reviewed with patient Assessment: Diagnosis Plan 1. [...] preventative health maintenance follow-up. documented in this encounterSSt. Rita's HospitalFgmksn15-45-7943 Note* Addendum Note - Shante Worley MD - 12/08/2022 9:24 AM EDTAddended by: SHANTE WORLEY on: 12/08/2022 09:24 AM Modules accepted: Orders [facility] CenterSshbpp22-79-5700 Telephone encounter Note* Telephone Encounter - Shante Worley MD - 12/08/2022 9:24 AM EDT Rx sent [facility] CenterKdgssd92-73-5771 Miscellaneous Notes* Addendum Note - Shante Worley [...] provider for further assistance documented in this encounterSSt. Rita's HospitalBaulsp79-64-6353 Telephone encounter Note* Telephone Encounter - Raquel [...] Sent TE to provider for further assistance [facility] CenterGwdsoj41-21-9642 Miscellaneous Notes* Telephone Encounter - Raquel Kirkland [...] provider for further assistance documented in this [facility]07-18-2023 Telephone encounter Note* Telephone Encounter - Shante Worley MD - 11/05/2022 7:49 AM EDT Please schedule patient a director treasurer visit this week [facility] CenterLokqke68-99-0424 Miscellaneous Notes* Telephone Encounter - Shante Worley MD - 11/05/2022 7:49 AM EDT Please schedule patient a director treasurer visit this week * Telephone Encounter - Sammy Gomez RN - 11/04/2022 11:16 AM EDT Reason for Disposition SEVERE post-op pain (e.g., excruciating, pain scale 8-10) that is not controlled with pain medications Caller has URGENT question and triager unable to answer question Protocols used: Post-Op Symptoms and Oxqwfqwai-LWHSJ-TG S: Patient calls for complaint of vaginal [...] verbalizes understanding of same documented in this [place] [address]-17-2023 Telephone encounter Note* Telephone Encounter - Sammy Gomez RN - 11/04/2022 11:16 AM EDT Reason for Disposition SEVERE post-op pain (e.g., excruciating, pain scale 8-10) that is not controlled with pain medications Caller has URGENT question and triager unable to answer question Protocols used: Post-Op Symptoms and Tpsajqfak-RKHYP-UA S: Patient calls for complaint of vaginal [...] of care. Patient verbalizes understanding of same [employer] CorporationNzxrvz07-49-3888 History of Present illness Narrative* Nieves Ron MD - 08/14/2022 9:45 AM EDT HPI: Patient for ER follow up. Recently with LEEP/D&C for abnormal cells on Pap smear. Had routine follow-up and was doing well on July 26. About 5 days ago she started bleeding and it just remained heavy. She went to the [facility] ER yesterday with a relatively benign [...] PLAN: -Reviewed labs, notes and ultrasound from [facility] ER -Left-sided hydrosalpinx noted which is [...] is her primary physician documented in this [facility]04-26-2023 History of Present illness Narrative* Nieves Ron MD - 08/14/2022 9:45 AM EDT HPI: Patient for ER follow up. Recently with LEEP/D&C for abnormal cells on Pap smear. Had routine follow-up and was doing well on July 26. About 5 days ago she started bleeding and it just remained heavy. She went to the [facility] ER yesterday with a relatively benign [...] PLAN: -Reviewed labs, notes and ultrasound from [facility] ER -Left-sided hydrosalpinx noted which is [...] is her primary physician documented in this [facility]04-26-2023 Miscellaneous Notes* Addendum Note - Vince Waddell MA - 08/14/2022 9:45 AM EDTAddended by: VINCE WADDELL on: 09/02/2022 09:45 AM Modules accepted: Orders documented in this [facility]04-26-2023 Note* Addendum Note - Vinec Waddell MA - 08/14/2022 9:45 AM EDTAddended by: VINCE WADDELL on: 09/02/2022 09:45 AM Modules accepted: Orders [facility] CenterUexlmt05-01-8629 Procedure [facility]04-07-2023 History of Present illness Narrative* Shante [...] about 6 months (around 01/25/2023) for fu director treasurer. Repeat pap next visit Will continue with [...] preventative health maintenance follow-up. documented in this [facility]03-22-2023 Miscellaneous Notes* Perioperative Nursing Note - Nita Todd RN - 07/10/2022 5:15 PM EDT Instructions given with verbalized understanding tolerated clear liquid and cracker well * Op Note - Shante Worley MD - 07/10/2022 3:45 PM EDT Pre-operative Diagnosis: abnormal uterine bleeding, cervical dysplasia, atypical endometrial cells Post-operative Diagnosis: Same Procedure: Hysteroscopy, D&C, leep Anesthesia: lma Surgeon: meir Estimated Blood Loss: minimal Complications: none Specimens: [...] All instrumentation was removed from the vagina. Sandstone, sponges and instruments were counted times two and noted to be correct. The patient tolerated the procedure weill. She was awakened from anesthesia and brought to the recovery room in stable condition. documented in this [facility]03-22-2023 Note* Perioperative Nursing Note - Nita Todd RN - 07/10/2022 5:15 PM EDT Instructions given with verbalized understanding tolerated clear liquid and cracker well [place] [id number] Note* Perioperative Nursing Note - Nita Todd RN - 07/10/2022 5:15 PM EDT Instructions given with verbalized understanding tolerated clear liquid and cracker well [place] [id number] Note* Op Note - Shante Worley MD - 07/10/2022 3:45 PM EDT Pre-operative Diagnosis: abnormal uterine bleeding, cervical dysplasia, atypical endometrial cells Post-operative Diagnosis: Same Procedure: Hysteroscopy, D&C, leep Anesthesia: lma Surgeon: meir Estimated Blood Loss: minimal Complications: none Specimens: [...] All instrumentation was removed from the vagina. Sandstone, sponges and instruments were counted times two and noted to be correct. The patient tolerated the procedure weill. She was awakened from anesthesia and brought to the recovery room in stable condition. [facility] Zyzadl98-03-8697 Note* Op Note - Shante Worley MD - 07/10/2022 3:45 PM EDT Pre-operative Diagnosis: abnormal uterine bleeding, cervical dysplasia, atypical endometrial cells Post-operative Diagnosis: Same Procedure: Hysteroscopy, D&C, leep Anesthesia: lma Surgeon: meir Estimated Blood Loss: minimal Complications: none Specimens: [...] All instrumentation was removed from the vagina. Sandstone, sponges and instruments were counted times two and noted to be correct. The patient tolerated the procedure weill. She was awakened from anesthesia and brought to the recovery room in stable condition. [facility] Smfyvw50-18-4584 Telephone encounter Note* Telephone Encounter - Antonieta Bernard - 07/02/2022 10:56 AM EDT Called insurance @ [phone] for utilization Management for the Provider Inquiry Department. Checking if outpatient CPT 43644 requires PA. Fax # S/w [place] to check. I was advised that CPT 22247 when done outpatient does not require PA. Call reference @ [id number]. [facility] CenterHbbcrv10-53-5557 Miscellaneous Notes* Telephone Encounter - Antonieta Bernard - 07/02/2022 10:56 AM EDT Called insurance @ [phone] for utilization Management for the Provider Inquiry Department. Checking if outpatient CPT 00566 requires PA. Fax # S/w [place] to check. I was advised that CPT 64911 when done outpatient does not require PA. Call reference @ [id number]. * Telephone Encounter - Antonieta Bernard - 06/28/2022 2:08 PM EST Patient seen in office today. Added hysteroscopy/D&C 52477 to surgery. Time and everything elsestays the same. Added to calendar and spoke with surgery scheduling to confirm. * Telephone Encounter - Antonieta Bernard - 06/10/2022 11:16 AM EST Please enter PAT orders: [facility] PAT: 07/04 @ 2:30PM Surgery:07/10 @ 3PM, CASE # [id number] Procedure: LEEP (28382) DX: N87.9 Anesthesia: GA Insurance: [place] [employer], phone # [phone]. On hold over 30 minutes. Hung up. Tried to submitALung Technologiesa [employer] portal due to it being an [employer] plan. No auth required. Uploaded to media. * Telephone Encounter - Antonieta Bernard - 06/10/2022 10:52 AM EST Biopsy complete 06/07, apt 06/28 to review. Called to schedule for July to secure a date and time for her. Office # left. Ok to put call through to [place] for me to take. documented in this [facility]03-10-2023 Telephone encounter Note* Telephone Encounter - Antonieta Bernard - 06/28/2022 2:08 PM EST Patient seen in office today. Added hysteroscopy/D&C 32889 to surgery. Time and everything elsestays the same. Added to calendar and spoke with surgery scheduling to confirm. [facility] CenterPqtxod37-77-8691 Miscellaneous Notes* Telephone Encounter - Antonieta Bernard - 06/28/2022 2:08 PM EST Patient seen in office today. Added hysteroscopy/D&C 79909 to surgery. Time and everything elsestays the same. Added to calendar and spoke with surgery scheduling to confirm. * Telephone Encounter - Antonieta Bernard - 06/10/2022 11:16 AM EST Please enter PAT orders: [facility] PAT: 07/04 @ 2:30PM Surgery:07/10 @ 3PM, CASE # [id number] Procedure: LEEP (18471) DX: N87.9 Anesthesia: GA Insurance: [place] [employer], phone # [phone]. On hold over 30 minutes. Hung up. Tried to submitALung Technologiesa [employer] portal due to it being an [employer] plan. No auth required. Uploaded to media. * Telephone Encounter - Antonieta Bernard - 06/10/2022 10:52 AM EST Biopsy complete 06/07, apt 06/28 to review. Called to schedule for July to secure a date and time for her. Office # left. Ok to put call through to [place] for me to take. documented in this [facility]03-10-2023 History of Present illness Narrative* Shante Worley [...] preventative health maintenance follow-up. documented in this [facility]02-21-2023 Telephone encounter Note* Telephone Encounter - Shante Worley MD - 06/11/2022 4:07 PM EST Rx sent to pharm [facility] CenterNvlnlo34-99-8089 Miscellaneous Notes* Telephone Encounter - Shante Worley MD - 06/11/2022 4:07 PM EST Rx sent to pharm * Telephone Encounter - Coty Whitaker - 06/11/2022 12:18 PM EST Name of caller: lisa Chaudhry Contact phone number: [phone] Relationship to Patient: patient Provider: Dr Worley [...] return their call: Yes documented in this [facility]02-21-2023 Telephone encounter Note* Telephone Encounter - Coty Whitaker - 06/11/2022 12:18 PM EST Name of caller: lisa Chaudhry Contact phone number: [phone] Relationship to Patient: patient Provider: Dr Worley [...] business hours to return their call: Yes [facility] Nfaenx98-18-0139 Telephone encounter Note* Telephone Encounter - Antonieta Bernard - 06/10/2022 11:16 AM EST Please enter PAT orders: [facility] PAT: 07/04 @ 2:30PM Surgery:07/10 @ 3PM, CASE # [id number] Procedure: LEEP (74757) DX: N87.9 Anesthesia: GA Insurance: [place] [employer], phone # [phone]. On hold over 30 minutes. Hung up. Tried to submitvia [employer] portal due to it being an [place] plan. No auth required. Uploaded to media. [facility] Ttevpt41-98-9850 Miscellaneous Notes* Telephone Encounter - Antonieta Bernard - 06/10/2022 11:16 AM EST Please enter PAT orders: [facility] PAT: 07/04 @ 2:30PM Surgery:07/10 @ 3PM, CASE # [id number] Procedure: LEEP (27061) DX: N87.9 Anesthesia: GA Insurance: [employer], phone # [phone]. On hold over 30 minutes. Hung up. Tried to submitvia [employer] portal due to it being an [employer] plan. No auth required. Uploaded to media. * Telephone Encounter - Antonieta Bernard - 06/10/2022 10:52 AM EST Biopsy complete 06/07, apt 06/28 to review. Called to schedule for July to secure a date and time for her. Office # left. Ok to put call through to [place] for me to take. documented in this [facility]02-20-2023 Telephone encounter Note* Telephone Encounter - Antonieta Bernard - 06/10/2022 10:52 AM EST Biopsy complete 06/07, apt 06/28 to review. Called to schedule for July to secure a date and time for her. Office # left. Ok to put call through to [place] for me to take. [facility] CenterKpsdub06-28-3283 History of Present illness Narrative* Shante Worley MD - 06/07/2022 11:30 AM EST Lisa Chaudhry 06/07/2023 Date Of : 1980 HPI: Lisa Chaudhry is a 42 y.o. female The patient was seen today. She is here regarding colposcopy and emb due to atypical squamous and endometrial cells on pap. Also fu ulsd for abnormal bleeding. 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 Orders Placed This Encounter Procedures Biopsy [...] preventative health maintenance follow-up. documented in this [facility]01-16-2023 History of Present illness Narrative* Kerri Soto - 05/06/2022 8:30 AM EST us documented in this [facility]01-11-2023 Telephone encounter Note* Telephone Encounter - Antonieta Bernard - 05/01/2022 2:58 PM EST S/w Dr. Worley. Labs came back abnormal. Colposcopy and EMB needed due to abnormalities to further characterize prior to surgery. Will need a DRY PRESS OPERATOR HELPER US then review with procedures with Dr. Worley after in office. Called and s/w the patient to schedule US then follow up apt to review and do the EMB and colposcopy. [id number] Miscellaneous Notes* Telephone Encounter - Antonieta Bernard - 05/01/2022 2:58 PM EST S/w Dr. Worley. Labs came back abnormal. Colposcopy and EMB needed due to abnormalities to further characterize prior to surgery. Will need a DRY PRESS OPERATOR HELPER US then review with procedures with Dr. [...] colpo results come back. documented in this [facility]01-10-2023 Telephone encounter Note* Telephone Encounter - Antonieta Bernard - 04/30/2022 2:49 PM EST Pap results in system. Please review results for patient and advise if ok to proceed with LEEP surgery scheduling. [facility] [id number] Miscellaneous Notes* Telephone Encounter - Antonieta Bernard - 04/30/2022 2:49 PM EST Pap results in system. Please review results for patient and advise if ok to proceed with LEEP surgery scheduling. * Telephone Encounter - Antonieta Bernard - 04/24/2022 3:51 PM EST Consent signed. I have the surgery slip. Ready to schedule once colpo results come back. documented in this [facility]01-04-2023 Telephone encounter Note* Telephone Encounter - Antonieta Bernard - 04/24/2022 3:51 PM EST Consent signed. I have the surgery slip. Ready to schedule once colpo results come back. [facility] [id number] Miscellaneous Notes* Telephone Encounter - Antonieta Bernard - 04/24/2022 3:51 PM EST Consent signed. I have the surgery slip. Ready to schedule once colpo results come back. documented in this [facility]01-03-2023 History of Present illness Narrative* Shante Worley MD - 04/23/2022 11:45 AM EST Lisa Chaudhry 04/[birth year]22 Date Of : 1980 HPI: Lisa Chaudhry is a 42 y.o. female The patient was seen today. She is here regarding needs to reschedule leep due to procedure cancelled. [facility] +hpv 06/12 [place] [facility] [place] 2-3 6:00 08/10 Also no [...] preventative health maintenance follow-up. documented in this [facility]11-18-2021 Chief complaint Narrative - Reported* An interactive audio and video telecommunication system which permits real time communications between the patient (at the originating site) and provider (at the distant site) was utilized to [facility] service. * Verbal consent was requested [...] someone who tested positive for covid today. [facility] 205 DO Work Phone: 1(221) 694-983711-16-2021 History of Present illness NarrativeThimarko is a [...] to a friend who tested + for COVID-19.[facility] 205 DO Work Phone: 1(869) 847-924708-22-2021 History of Present illness NarrativePatient is having [...] She currently does not have a family doctor.-[facility] Work Phone: 1(597) 372-640803-22-2021 NoteHNO ID: [id number] Author: Vince Ogden Service: ? Author Type: Physician Acute Dialysis Nurse Type: Progress Notes Filed: 07/10/2020 3:08 PM Note Text: Pt did not keep this scheduled appointment. DIONY Amin-[facility] note* Diagnosis Drug overdose, undetermined intent, initial encounter- Primary documented in this encounter [facility] Work Phone: Evaluation noteNo assessment information available [facility] Work Phone: Evaluation note* Diagnosis Abnormal uterine bleeding (AUB)- Primary Atypical endometrial cells on Pap smear Abnormal glandular Papanicolaou smear of cervix Severe dysplasia of cervix (WESTON III) Carcinoma in situ of cervix uteri Dysplasia of cervix uteri, unspecified documented in this encounter [facility] note* Diagnosis Dysplasia of cervix uteri, unspecified documented in this encounter 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 note* Diagnosis Abnormal uterine bleeding (AUB)- Primary Adnexal cyst documented in this encounter [facility] note* Diagnosis Abnormal uterine bleeding (AUB)- Primary Adnexal cyst documented in this encounter [facility] note* Diagnosis Abnormal uterine bleeding- Primary Unspecified disorder of menstruation and other abnormal bleeding from female genital tract Cervical dysplasia Dysplasia of cervix, unspecified documented in this encounter [facility] note* Diagnosis Metabolic encephalopathy- Primary Lethargy Other malaise and fatigue Nausea and vomiting Nausea with vomiting Acute UTI Urinary tract infection, site not specified Hypertension, unspecified type Hypertensive urgency Urinary tract infection without hematuria Dehydration Elevated random blood glucose level Nausea and vomiting Nausea with vomiting documented in this encounter [facility] note* Diagnosis Abnormal uterine bleeding- Primary Unspecified disorder of menstruation and other abnormal bleeding from female genital tract Severe dysplasia of cervix (WESTON III) Carcinoma in situ of cervix uteri Screening for cervical cancer Screening for malignant neoplasm of the cervix Encounter for screening mammogram for malignant neoplasm of breast [facility] Encounter for screening mammogram for malignant neoplasm of breast [facility] Diagnosis Abnormal uterine bleeding (AUB) [facility] Diagnosis Pre-procedural laboratory examinations- Primary Pre-procedural laboratory examination Abnormal uterine bleeding (AUB) Atypical endometrial cells on Pap smear Abnormal glandular Papanicolaou smear of cervix ASCUS with positive high risk HPV cervical [facility]* Diagnosis Adjustment disorder, unspecified type- Primary documented in this encounter [facility] Work Phone: Evaluation note* Diagnosis Encounter for screening mammogram for malignant neoplasm of breast [facility] Diagnosis Encounter for screening mammogram for malignant neoplasm of breast- Primary Encounter for screening mammogram for malignant neoplasm of breast [facility]* Diagnosis Well woman exam with routine gynecological exam- Primary Routine gynecological examination Encounter for screening mammogram for malignant neoplasm of breast control counseling Vaginal discharge Leukorrhea, not specified as infective Screen for STD (sexually transmitted disease) Screening examination for venereal disease Screening for colon cancer Special screening for malignant neoplasms, colon Family history of malignant neoplasm of breast documented [facility] NarrativeShe presents today to [...] a treatment center and is prescribed medications there.-[facility] Work Phone: History of Present illness Narrative* [...] of breath. Patient states partial relief with wuwh-[id number] medications. * Patient reports that she has had swelling in her bilateral feet for two weeks. Patient denies any trauma recent or remote. Patient reports no improvement despite the use of elevation and compression stockings. -[facility] Work Phone: Hospital Discharge instructions* Instructions* Pamela Lopez PA-C - 08/12/2020 Patient is Medically Cleared. Return as needed. Go back to [facility] for further treatment. Follow up with PCP. Do not use substances other than those given to you by [facility]. documented in this [facility] Work Phone: Hospital Discharge instructions* Attachments The following attachments cannot be sent through Care Everywhere. * Hysteroscopy Discharge Instructions (Brazilian) * Loop Electrosurgical Excision Procedure Discharge Instructions (Brazilian) * General Anesthesia Discharge Instructions (Brazilian) documented in this [facility] Discharge instructions* Attachments The following attachments cannot be sent through Care Everywhere. * Adjustment Disorder (Brazilian) * Tips on Positive Thinking (Brazilian) documented in this [facility] Work Phone: Reason for referral (narrative)No reason for referral information availableWPomerene Hospital Work Phone: Summary Purpose Family History [...] FoundDocuments on File Type Date Recorded Patient Pigs Feet Finisher Expl anation Advance Directives and Living Will Power of Clinical Rn Manager Documents on File Type Date Recorded Patient Pigs Feet Finisher Expl anation ACP-Advance Directive ACP-Power of Clinical Rn Manager Advance Directive Response Recorded Date/ Time Advance Directives No July 21 14 11:31pm Living Will No July 21, 2013 11:31pm Power of Clinical Rn Manager No July 21 4 11:31pm Latest Code Status on File Code Status Date Activated Date Inactivated Comments Full Code 07/10/2022 1:28 PM 07/10/2022 7:19 PM Latest Code Status on File Code Status Date Activated Date Inactivated Comments Full Code 07/10/2022 1:28 PM 07/10/2022 7:19 PM Advance Directive Response Recorded Date/ Time Advance Directives No July 22 12:31am Living Will No July 22, 2013 12:31am Power of Clinical Rn Manager No July 22 4 12:31am Date Activated Date Inactivated Comments 07/10/2022 1:28 PM 07/10/2022 7:19 PM Documents on File Type Date Recorded Patient Pigs Feet Finisher Expl anation Advance Directives and Livin g [...] Care Everywhere. * Asthma Triggers: General Info (Brazilian) * Asthma or COPD: Using a Metered-Dose Inhaler (Brazilian) * Video: Quitting Smoking: It May Take Many Tries (Brazilian) * Smoking: Stopping (Brazilian) * Smoking Cessation: Health Benefits: General Info (Brazilian) documented in this encounter* Attachments The following attachments cannot be sent through Care Everywhere. * Serum Sickness (Brazilian) documented in this encounter Assessments Diagnosis Viral [...] PCP; previous pt of Dr. Nicki Nguyen, [facility]; Asthmahot and cold chills, nausea, temp got [...] section and content) DATE CREATED AUTHOR 10/13/2017 [facility] DATE CREATED AUTHOR AUTHOR'S ORGANIZ ATION [facility]/15/2017 [facility] DATE CREATED AUTHOR AUTHOR'S ORGANIZ ATION 10/15/2017 [facility] DATE CREATED AUTHOR AUTHOR'S ORGANIZ ATION 12/22/2017 [facility] DATE CREATED AUTHOR AUTHOR'S ORGANIZ ATION 01/29/2019 [facility] DATE CREATED AUTHOR AUTHOR'S ORGANIZ ATION 06/29/2020 [facility] DATE CREATED AUTHOR AUTHOR'S ORGANIZ ATION 08/17/2020 [facility] DATE CREATED AUTHOR AUTHOR'S ORGANIZ ATION 06/07/2021 [facility] DATE CREATED AUTHOR AUTHOR'S ORGANIZ ATION 12/20/2021 [facility] DATE CREATED AUTHOR AUTHOR'S ORGANIZ ATION 06/23/2023 [facility] DATE CREATED AUTHOR AUTHOR'S ORGANIZ ATION 06/23/2023 [facility] DATE CREATED AUTHOR AUTHOR'S ORGANIZ ATION 09/03/2023 [facility] DATE CREATED AUTHOR AUTHOR'S ORGANIZ ATION 09/03/2023 [facility] DATE CREATED AUTHOR AUTHOR'S ORGANIZ ATION 03/06/2024 [facility] DATE CREATED AUTHOR AUTHOR'S ORGANIZ ATION 07/13/2024 [facility] DATE CREATED AUTHOR AUTHOR'S ORGANIZ ATION 09/07/2024 [facility] DATE CREATED AUTHOR AUTHOR'S ORGANIZ ATION 09/24/2024 [facility] Reason for Visit (unrecogniz ed section and content) Reason Comments Cough Nasal Congestion Generalized Body Aches Reason Comments Other vaccine reaction Reason Comments Drug Overdose patient to ED11 with potential overdose on unknown substance. patient sent from [facility], patient noted to have dilated pupils and sleepy. patient admits to using $50 worth of Heroin yesterday at 1200. patient denies using any substance since then. patient was found by [place] emergency department staff to have multiple suboxone patches on her. patient stated that they gave them to her. patient admitted to this RN that they were in her wallet and she brought them with her. patient is alert to voice, remains drowsy. Reason Comments Follow-up results Reason Onset Date Comments Surgery Scheduling 06/10/2022 Specialty Diagnoses / Procedures Referred By [facility] Referred To Contact Diagnoses Dysplasia of cervix uteri, unspecified Dysplasia of cervix uteri, unspecified [N87.9] Procedures NJ CONIZATION CERVIX W/WO D&C RPR ELTRD EXC NJ HYSTEROSCOPY BX ENDOMETRIUM&/POLYPC W/WO D&C LEEP,HYSTEROSCOPY, DILATION AND CURETTAGE HYSTEROSCOPY BIOPSY ENDOMETRIUM AND OR POLYPECTOMY Shante Worley MD [address] [place] [address] [facility] [address] [place] [address] Referral ID Status Reason Start Date Expiration Date Visits Re quested Visits Authorized [id number] 1 1 Reason Comments Post-op Visit 2 weeks Reason Comments Vaginal Bleeding Pt seen in ED 3 for vaginal bleeding, pt states they did an ultrasound at the EDPt states she has been bleeding very heavily since Friday with lots of clots and cramping Reason Onset Date Comments Post-op Problem 11/04/2022 Reason Comments Withdrawal Altered Mental Status Specialty Diagnoses / Procedures Referred By [facility] Referred To Contact Diagnoses Metabolic encephalopathy Lethargy Nausea and vomiting Acute UTI Hypertension, unspecified type Referral ID Status Reason Start Date Expiration Date Visits Re quested Visits Authorized [id number] 1 1 Reason Comments Follow-up Pap smear [...] Status: Inactive Member Role Status Dates Konrad Huston Memo , DO Primary Care Provi caitlyn, Attending Provider, Referring Provider Active 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 Start Date End Date Konrad Hampton DO [address] [facility] [address] [place] [address] PCP - General Family Medicine 06/26/22 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 Start Date End Date Konrad Hampton DO [address] [facility] [address] [place] [address] PCP - General Family Medicine 06/26/22 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 Start Date End Date Konrad Hampton DO [address] [facility] [address] [place] [address] PCP - General Family Medicine 06/26/22 Team Status: Active Member Role Status Dates Konrad Hampton DO Primary Care Provi caitlyn, Referring Provider, Other Provider Active Dr. Scotty Don MD Attending Provider Active Team Status: Inactive Member Role Status Dates Konrad Hampton DO Primary Care Provider Active Dr. Sowmya Sauceda MD Attending Provider Active 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 Start Date End Date Konrad Hampton DO [address] [facility] [address] [place] [address] PCP - General Family Medicine 06/26/22 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 Start Date End Date Konrad Hampton DO [address] [facility] [address] [place] [address] PCP - General Family Medicine 06/26/22 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 Start Date End Date Memo, KonradDO [address] [facility] [address] [place] [address] PCP - General Family Medicine 06/26/22 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 Start Date End Date Konrad Hampton DO [address] [facility] [address] [place] [address] PCP - General Family Medicine 06/26/22 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 Start Date End Date Konrad Hampton DO [address] [place] [address] [address] [place] [address] PCP - General Family Medicine 06/26/22 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 Start Date End Date Kornad Hampton DO [address] [facility] [address] [place] [address] PCP - General Family Medicine 06/26/22 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 Start Date End Date No, Physician [facility] PCP - General 03/24/24 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 Start Date End Date Leonardo Ashford MD [address] [place] [address] [address] [place] [address] PCP - General 02/03/20 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 Start Date End Date Leonardo Ashford MD [address] [place] [address] [address] [place] [address] PCP - General 02/03/20 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 Start Date End Date Leonardo Ashford MD [address] [place] [address] [address] [place] [address] PCP - General 02/03/20 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 Start Date End Date Leonardo Ashford MD [address] [place] [address] [address] [place] [address] PCP - General 02/03/20 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 Start Date End Date Leonardo Ashford MD [address] [place] [address] [address] [place] [address] PCP - General 02/03/20 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 Start Date End Date Leonardo Ashford MD [address] [place] [address] [address] [place] [address] PCP - General 02/03/20 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 Start Date End Date Leonardo Ashford MD [address] [place] [address] [address] [place] [address] PCP - General 02/03/20 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 Start Date End Date Leonardo Ashford MD [address] [facility] [address] [place], [place] [id number] PCP - General 02/03/20 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 Start Date End Date Konrad Hampton DO [address] [facility] [address] [place], [place] [phone] PCP - General Family Medicine 06/26/22 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 Start Date End Date Nicki Nguyen MD [facility] [place], [place] [id number] [facility] 08/20/23 Konrad Hampton DO [address] [facility] [address] [place], [place] [id number] PCP - General Family Medicine 12/23/23 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 Start Date End Date Noni Pablo MD [address] [facility] [address] [place], [place] [id number] PCP - General Family Medicine 05/27/24 Team [...] 2024 Team Status: Active Member Role Status Jaya Pablo MD Primary Care Provider Active St art: June 23, 2024 Noni Pablo MD Referring Provider Active Start : June 23, 2024 Dr. Mario Potts MD Attending Provider Active Start: June 23, 2024 Dr. Mario Potts MD Other Provider Active Sta rt: June 23, 2024 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 Start Date End Date Konrad Hampton DO [address] [facility] [address] [place], [place] [address] PCP - General Family Medicine 06/26/22 05/26/24 Noni Pablo MD [address] [place] [address] [address] [place], [place] [address] PCP - General Family Medicine 05/27/24 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 Start Date End Date Noni Pablo MD [address] [place] [address] [address] [place], [place] [id number] PCP - General Family Medicine 05/27/24 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 Start Date End Date Noni Pablo MD [address] [place] [address] [address] [place], [place] [id number] PCP - General Family Medicine 05/27/24 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 Start Date End Date Noni Pablo MD [address] [place] [address] [address] [place], [place] [id number] PCP - General Family Medicine 05/27/24 Goals [...] Provid er: Nita Norris RN) Nozin Nasal Control Room Tender 62 % 1 ampule (COMPLETED) 1 ampule, [...] Shante Worley MD) lidocaine-EPINEPHrine (Xylocaine W/EPI) 1 %-1:[id number] injection (CANCELED) As needed, Starting on Fri07/10/22 [...] irrigation solution (CANCELED) As needed, Starting on 07/10/22 at 1552, Intraprocedure 1552 (Given - Provid er: Shante Worley MD) Scheduled Medication Order 03/25/2024 03/26/2024 03/27/2024 cefTRIAXone (ROCEPHIN) 2000 mg in sodium chloride (NS) 0.9% 50 mL MBP 2,000 mg, Intravenous, at 100 mL/hr, Every 24 hours, First dose (after last modification) on Ellen 03/25/24 at 1999, Indication: UTI (mild to moderate) 2112 (New [...] Nancy Sal RN)0917 (Given - Provider: Jason Hoskins, KATIUSKA)1639 (Given - Provider: Jason Hoskins, KATIUSKA)2044 (Given - Provider: Angelica Hill, KATIUSKA) 0330 (Not Given - Provider: Angelica Hill RN - Reason: Order parameters not met)0902 (Given - Provider: Jason Hoskins, KATIUSKA)1509 (Given - Provider: Jason Hoskins, KATIUSKA) cloNIDine HCL (CATAPRES) tablet 0.2 mg (COMPLETED)(Linked [...] if patient refuses., Prophylaxis Indication: VTE Prophylaxis (Given - Provider: Jason Hoskins, KATIUSKA) heparin (porcine) injection 5,000 Units (CANCELED) 5,000 Units, Subcutaneous, Every 8 hours scheduled, First dose on Fri03/25/24 at 0600, Notify physician if patient refuses. 0537 (Given - Provider: Tino Blakely RN)1335 (Given - Provider: Sowmya Tovar, RN)2115 (Given - Provider: Nancy Sal RN) 0516 (Given - Provider: Nancy Sal RN)1425 (Given - Provider: Jason Hoskins, KATIUSKA)2239 (Given - Provider: Angelica Hill, KATIUSKA) 0555 (Given - Provider: Angelica Hill, KATIUSKA) hydrALAZINE (APRESOLINE) injection 5 mg (COMPLETED) 5 mg, Intravenous, Once, On Fri03/26/24 at 0100, For 1 dose 0018 (Given - Provider: Nancy Sal RN) lactulose (CHRONULAC) solution 20 g (CANCELED) 20 g, Oral, 3 times daily, First dose on Fri03/26/24 at 1500 1424 (Given - Provider: Jason Hoskins, KATIUSKA)2100 (Not Given - Provider: Angelica Hill RN - Reason: Patient/family refused) levETIRAcetam (KEPPRA) tablet 500 mg 500 mg, Oral, 2 times daily, First dose on Fri03/25/24 at 0900 0824 (Given - Provider: Amadeo Camacho)2024 (Given - Provider: Nancy Sal RN) 09 (Given - Provider: Jason Hoskins, KATIUSKA)2041 (Given - Provider: Angelica Hill, KATIUSKA) 0902 (Given - Provider: Jason Hoskins, KATIUSKA) magnesium citrate solution 296 mL (COMPLETED) 296 mL, Oral, Once, On Fri03/26/24 at 1430, For 1 dose 1424 (Given - Provider: Jason Hoskins, KATIUSKA) magnesium sulfate 1 g in dextrose (D5W) [...] RN) 0124 (New Bag - Provider: Nancy Sal, KATIUSKA)0200 (Stopped - Provider: Nancy Sal, RN)0927 (New Bag - Provider: Jason Hoskins RN)1046 (Stopped - Provider: Dyan Dhaliwal RN)1806 (New Bag - Provider: Jason Hoskins, KATIUSKA)1836 (Stopped - Provider: Jason Hoskins, KATIUSKA) 0308 (New Bag - Provider: Angelica Hill RN)0338 (Stopped - Provider: Tino Blakely RN)1015 (Not Given - Provider: Jason Hoskins RN - Reason: Other - Comment: Per Dr. Wynn) nicotine (NICODERM CQ) 14 mg/24 hr 1 patch 1 patch, Transdermal, Administer over 24 Hours, Daily, First dose on 03/27/24 at 1345, U/P Listed Hazardous Drug. Waste Must Be Disposed in [employer] Waste Container 1253 (Patch Applied - Provider: Jason Hoskins RN)1700 (Due: Patch Removed - Provider: Discharge Provider, Automatic - Comment: Time automatically adjusted from order being discontinued) pantoprazole (PROTONIX) Vial 40 mg 40 mg, Intravenous, 2 times daily, First dose on Ellen 03/25/24 at 0800, Dilute each vial with 10 mL of 0.9% NaCl. 0832 (Given - Provider: Sowmya Tovar RN)2115 (Given - Provider: Nancy Sal RN - Comment: No IV site) 0917 (Given - Provider: Jason Hoskins RN)204 (Given - Provider: Angelica Hill RN) 0901 (Given - Provider: Jason Hoskins RN) polyethylene glycol (MIRALAX) powder 17 g 17 g, Oral, 2 times daily, First dose on Fri03/26/24 at 1230, HOLD IF DIARRHEA OR LOOSE STOOLS 1230 (Given - Provider: Jason Hoskins RN)2100 (Not Given - Provider: Angelica Hill RN - Reason: Patient/family refused) 0902 (Given - Provider: Jason Hoskins RN) potassium chloride (KAYCIEL) 20 mEq/15 mL solution 40 mEq (COMPLETED) 40 mEq, Oral, Once, On Ellen 03/25/24 [...] Reason: Other)2200 (Canceled Entry - Provider: Angelica Hill, KATIUSKA) 0307 (Given - Provider: Angelica Hill RN)1400 [...] 80 mg, Oral, Daily, First dose on Ellen 03/25/24 at 0900, HOLD IF SBP <140 0823 [...] () 125 mL/hr, Intravenous, Continuous, Starting on Ellen 03/25/24 at 0845, For 8 hours, STOP AFTER [...] at 0748 2240 (Given - Provider: Angelica Hill, KATIUSKA) aluminum-magnesium hydroxide-simethicone (MAALOX PLUS) 200-200-20 mg/5 mL suspension 30 mL 30 mL, Oral, Every 4 hours PRN, indigestion, Starting on Fri03/24/24 at 2033 hydrOXYzine (ATARAX) tablet 25 mg 25 mg, Oral, Every 6 hours PRN, anxiety, Starting on Fri03/25/24 at 1940 iopamidoL (ISOVUE-370) 370 mg iodine /mL (76 %) injection 100 mL (COMPLETED) 100 mL, Intravenous, Once in imaging, contrast, Starting on Fri03/26/24 at 1018, For 1 dose 1019 (Contrast Administered - Provider: Blanca Butler, TECHNOLOGIST - Comment: [id number]) LORazepam (ATIVAN) injection 1 mg 1 mg, Intravenous, Every 4 hours PRN, agitation, seizures, Starting on Fri03/25/24 at 0747, VESICANT melatonin Tab 10 mg 10 mg, Oral, Nightly PRN, Sleep, Starting on Fri03/24/24 at 2033 2239 (Given - Provider: Angelica Hill, KATIUSKA) naloxone (NARCAN) injection 0.4 mg 0.4 mg, Intravenous, Every 4 hours PRN, opioid reversal, respiratory depression, Starting on Fri03/25/24 at 0754 ondansetron (ZOFRAN) injection 4 mg 4 mg, Intravenous, Every 6 hours PRN, nausea, vomiting, Starting on Fri03/24/24 at 2033 0832 (Given - Provider: Sowmya Tovar RN)1335 (Given - Provider: Sowmya Tovar RN) 0421 (Given - Provider: Nancy Sal RN)0927 (Given - Provider: Jason Hoskins, KATIUSKA)1746 (Not Given - Provider: Jason Hoskins RN - Reason: Other - Comment: medication returned)2043 (Given - Provider: Angelica Hill RN) 033 (Given - Provider: Angelica Hill RN) perflutren lipid microspheres (DEFINITY) 0.143 mg/mL solution 0-10 mL of mixture 0-10 mL of mixture, Intravenous, Once in imaging, contrast, IF suboptimal echo, Starting on Ellen 03/25/24 at 1647, For 48 hours, Prepare syringe [...] mL, Intravenous, Once in imaging, contrast, Per laundry tech (Radiology) for line patency check prior to contrast administration, Starting on Fri03/26/24 at 1018, For 1 dose sodium chloride (PF) (NS) 0.9 % contrast line flush 10 mL 10 mL, Intravenous, Once in imaging, contrast, Per laundry tech (Radiology) for line patency check, Starting on Fri03/26/24 at 1018, For 1 dose sodium chloride (PF) (NS) 0.9 % contrast line flush 80 mL(Linked Group 3) 80 mL, Intravenous, Once in imaging, contrast, Per laundry tech (Radiology), Starting on Fri03/26/24 at 1018, For 1 dose, 30 mL BEFORE contrast administration 50 mL AFTER contrast administration sodium chloride (PF) (NS) flush 5 mL(Linked Group 4) 5 mL, Intravenous, As needed, line care, Starting on Fri03/24/24 at 1529 sodium chloride (PF) (NS) flush 5 mL(Linked Group 2) 5 mL, Intravenous, As needed, line care, Starting on Fri03/24/24 at 2033 2042 (Given - Provider: Angelica Hill RN) sodium [...] the secondary infusion, Starting on Fri03/24/24 at 2034, Run as Primary IV. NOT intended for [...] Sublingual, Every 6 hours, First dose on Fri03/25/24 at 2130, For 1 dose, HOLD if [...] (CANCELED) Routine, Continuous, Starting on Fri03/24/24 at 2035, Until Specified And sodium chloride (PF) (NS) flush 5 mLJump to med 5 mL, Intravenous, As needed, line care, Starting on Fri03/24/24 at 2034 And sodium chloride (PF) (NS) flush 5 [...] the secondary infusion, Starting on Fri03/24/24 at 2034, Run as Primary IV. NOT intended for KVO. Group 3: sodium chloride (PF) (NS) 0.9 % contrast line flush 10 mLJump to med 10 mL, Intravenous, Once in imaging, contrast, Per laundry tech (Radiology) for line patency check prior to contrast administration, Starting on Fri03/26/24 at 1018, For 1 dose And sodium chloride (PF) (NS) 0.9 % contrast line flush 80 mLJump to med 80 mL, Intravenous, Once in imaging, contrast, Per laundry tech (Radiology), Starting on Fri03/26/24 at 1018, For [...] BE BASED ON THE PRIMARY CLINICAL RECORDS. [facility] [employer] [facility]. provides no warranty or guarantee of the accuracy or completeness of information in this document.
--- OUTSIDE RECORDS SUMMARY | 2024-10-30 23:18 | XMS RPT_ITS | CCD ---
Author Organization [facility] Care Team Providers Care Mold Closer Name Role Phone UNKNOWN, PROVIDER Unavailable Unavailable NICKI NGUYEN Unavailable Unavailable TESSIE, JULIAN Unavailable Unavailable TESSIE, JULIAN Unavailable Unavailable GILMA ANDERSON Unavailable Unavailable Ajay Gupta Unavailable Unavailabl Ajay Mccurdy Unavailable Unavailabl e Nicki Nguyen Unavailable Unavailable Nicki Nguyen Unavailable Unavailable MATT CASTILLO Unavailable Unavailable Nicki Nguyen Unavailable Unavailable Mirella Oliva Primary Care Provider Lisa Danielson Primary Care Provider [phone] Leonardo Ashford MD Primary Care Provider [phone] Nicki Nguyen Unavailable Unavailable Unavailable Elizabeth Tapia Unavailable Konrad Hampton DO Primary Care Provider DO Konrad Hampton Primary Care Provider DO Konrad Hampton Referring Provider DO Konrad Hampton Other Provider [phone] Scotty Don Attending Provider [phone] Konrad Hampton DO Primary Care Provider MITCHELL [...] Translations: [HYDROMORPHONE (BULK)] Drug Allergy 3 [facility] Other [place] [facility] (2 sources) bee pollen Propensity to adverse reactions to drug 8 [place] (4 sources) Latex; Translations: [LATEX] Propensity to adverse reactions to drug 8 [place] (20 sources) Codeine; Translations: [Codeine Derivatives] Drug Allergy 1 Other (See Comments), Unknown, GI Intolerance, Other [facility] and Work Phone: (3 sources) HYDROmorphone; Translations: [hydromorphone HCl] Drug Allergy 5 [facility] (20 sources) Bee pollen Propensity to adverse reactions 8 [facility] (20 sources) HYDROmorphone Drug Allergy 3 Unknown, Itching [facility] (20 sources) Latex Propensity to adverse reactions 8 Rash [facility] (20 sources) Pollen Propensity to adverse reactions 8 [facility] (2 sources) Codeine; Translations: [CODEINE] Drug Allergy 1 [facility] Repository Medications Current Medications Medication Drug Class(es) Dates Sig (Normalized) Sig (Original) [id number] 200 actuat albuterol 0.09 mg/actuat metered dose [...] Start: 12-19-2021 take 1 capsule by mo [facility] once daily Cefdinir 300 MG Oral Capsule [...] D 3 11/18/2018 Active polyethylene glycol 3350 70710 mg powder for oral solution (4 sources) [...] sources) Start: 07-10-2022 End: 07-10-2022 Nozin Nasal 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 Quantity: 1 Refills: 5 Ordered: 30-Jan-2021 Eliazbeth Whitlock Start : 30-Oct-2016 Active Naloxone (2 [...] mL, Intravenous, Once in imaging, contrast, Per education dean (Radiology) for line patency check, Starting on [...] [facility] 09-06-2024 36 1st attempt Nutrinia message sent 08/27/24 2nd attempt called patient Unable to leave message to call the screening program at [phone] - voicemail not set up Normal [facility] 08-27-2024 36 Financubat message sent to have patient call screening program if still interested in scheduling a screening colonoscopy. Normal [facility] 08-25-2024 36 Rx for bv and yeast sent Normal [facility] Sureswab(R) Advanced Vaginit is Plus, TMA (Quest)on 08-25-2024 C. glabrata RNA CHANDANA+probe Ql (Vag fld) Not detected NOT DETECTED [facility] Comment on above: Marialuisa species C. albicans, C. tropicalis, C. parapsilosis, and/or C. dubliniensis can be detected, but not differentiated, in the Marialuisa spp. result. C. trachomatis rRNA CHANDANA+probe Ql (Unsp spec) Not detected NOT DETECTED [facility] Marialuisa sp rRNA Probe Ql (Vag fld) Detected Abnormal NOT DETECTED [facility] Interpretation and review of laboratory results Abnormal [facility] Lactobacillus crispatus+gasseri+je nsenii + Gardnerella vaginalis + Atopobium vaginae rRNA CHANDANA+probe Ql (Vag fld) Positive Abnormal NEGATIVE [facility] N. gonorrhoeae rRNA CHANDANA+probe Ql (Unsp spec) Not detected NOT DETECTED [facility] Comment on above: For additional infor margaux, please refer to [email or web address] (This link is being provided for information/ educational purposes only.) T. vaginalis rRNA CHANDANA+probe Ql (Unsp spec) Not detected NOT DETECTED [facility] HCG ( test) Ql (U)o n 08-24-2024 Beta HCG ( test) Ql (U) . [facility] NEGATIVE QC Pass [facility] POSITIVE QC Pass [facility] Preg Test, Ur Negative Negative [facility] Office Visiton 08-24-2024 Follow-up visit [id number] Mohan Chaudhry 1980 F Date Provider Department Center 08/24/2024 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 [...] Age of Onset Macular degeneration Mother Other (07797) Father blood infection; liver dis; septic-age 59 [...] Resource Strain: Low Risk (06/17/2023) Received from [facility] Overall Financial Resource Strain (CARDIA) Difficulty of Paying Living Expenses: Not very hard Food Insecurity: No Food Insecurity (03/24/2024) Received from [facility] Hunger Vital Sign Worried About Running Out of Food in the Last Year: Never true Ran Out of Food in the Last Year: Never true Transportation Needs: No Transportation Needs (03/24/2024) Received from [facility] PRAPARE - Transportation Lack of Transportation (Medical): No Lack of Transportation (Non-Medical): No Physical Activity: Not on file Stress: Not on file Social Connections: Not on file Intimate Partner Violence: Not At Risk (03/24/2024) Received from [facility] Humiliation, Afraid, Rape, and Kick questionnaire Fear of Current or Ex-Partner: No Emotionally Abused: No Physically Abused: No Sexually Abused: No Housing Stability: Low Risk (03/24/2024) Received from [facility] Housing Stability Vital Sign Unable to Pay [...] montelukast (Sing (more content not included)... Normal [facility] Culture, Anaerobic Any Sourc berkley 06-28-2024 CUAN right le medial No growth in 5 days. Normal [facility] Comment on above: Performed By: #### M 100.4001, M100.3000, M1.1999 #### [facility] [address] [place], [address] CUAN right LE anterior No growth in 5 days. Normal [facility] Comment on above: Performed By: #### M 100.4001, M100.3000, M100.2000 #### [facility] Laboratory [address] [place], [address] Wound Ctr History AND Physic fortunato 06-27-2024 Wound Ctr History & Physical [facility] [address] [place] [address] H P Exam - Wound Care 06/27/24 1832 MR#: [id number] Acct: [id number] Name: LISA CHAUDHRY Rep #: [id number] : 1980 44 From: Mario Potts MD [...] she had been evaluated recently at the [facility] by Dr. Boni Lambert, a [...] smoking approximately 7 cigarettes/day. She also vapes. [facility] Medical History Skin necrosis Non-pressure chronic ulcer [...] Speech: normal (more content not included)... Normal [facility] Wound Cultureon 06-25-2024 WC right LE anterior [...] Vancomycin Islt MIGUEL ANGEL 2 S Normal [facility] Comment on above: Performed By: #### M 100.4001, M100.3000, M1.1999 #### [facility] Laboratory [address] [place], [address] WC right le medial Clinical correlation necessary, [...] Vancomycin Islt MIGUEL ANGEL 2 S Normal [facility] Comment on above: Performed By: #### M 100.4001, M100.3000, M1.1999 #### [facility] Laboratory [address] [place], [address] Gram Stainon 06-24-2024 GS right le medial Gram Stain Rare Gram positive cocci No White Blood Cells No Epithelial cells Normal [facility] Comment on above: Performed By: #### M 100.4001, M100.3000, .1999 #### [facility] Laboratory [address] [place], [address] GS right LE anterior Gram Stain No White Blood Cells No Epithelial cells 1+ Gram positive cocci Normal [facility] Comment on above: Performed By: #### M 100.4001, M100.3000, M1.1999 #### [facility] Laboratory [address] [place], [address] Bacteria identified Anaer cx Nom (Unsp spec)Ordered By: Mario Potts on 06-23-2024 Anaerobic Culture No growth in 5 days. [facility] CBC W/Diff, Automatedon 03-0 Absolute Neut Normal 2.0-7.7 [facility] Comment on above: Result Comment: NOT DONE Performed By: #### L 100.0100, L500.4050 #### [facility] Laboratory [address] [place], [address] HCT Normal 37-47 [facility] Comment on above: Result Comment: NOT DONE Performed By: #### L 100.0100, L500.4050 #### [facility] Laboratory [address] [place], [address] HGB Normal 12.0-15.0 [facility] Comment on above: Result Comment: NOT DONE Performed By: #### L 100.0100, L500.4050 #### [facility] Laboratory [address] [place], [address] MCH Normal 27.0-32.0 [facility] Comment on above: Result Comment: NOT DONE Performed By: #### L 100.0100, L500.4050 #### [facility] Laboratory [address] [place], [address] MCHC Normal 32-36 [facility] Comment on above: Result Comment: NOT DONE Performed By: #### L 100.0100, L500.4050 #### [facility] Laboratory [address] [place], [address] MCV Normal 81-99 [facility] Comment on above: Result Comment: NOT DONE Performed By: #### L 100.0100, L500.4050 #### [facility] Laboratory [address] [place], [address] NEUT% Normal 47-70 [facility] Comment on above: Result Comment: NOT DONE Performed By: #### L 100.0100, L500.4050 #### [facility] Laboratory [address] [place], [address] PLT Normal 150-450 [facility] Comment on above: Result Comment: NOT DONE Performed By: #### L 100.0100, L500.4050 #### [facility] Laboratory [address] [place], [address] RBC Normal 4.2-5.4 [facility] Comment on above: Result Comment: NOT DONE Performed By: #### L 100.0100, L500.4050 #### [facility] Laboratory [address] [place], [address] RDW CV Normal 11.6-14.6 [facility] Comment on above: Result Comment: NOT DONE Performed By: #### L 100.0100, L500.4050 #### [facility] Laboratory [address] [place], [address] RDW SD Normal 35.1-43.9 [facility] Comment on above: Result Comment: NOT DONE Performed By: #### L 100.0100, L500.4050 #### [facility] Laboratory [address] [place], [address] WBC Normal 4.4-11.0 [facility] Comment on above: Result Comment: NOT DONE Performed By: #### L 100.0100, L500.4050 #### [facility] Laboratory [address] [place], [address] Comprehensive Metabolic Prof ilon 06-23-2024 ALB Normal 3.5-5.0 [facility] Comment on above: Result Comment: NOT COLLECTED. Performed By: #### L 100.0100, L500.4050 #### [facility] [address] [place], [address] ALK PHOS Normal 35-104 [facility] Comment on above: Result Comment: NOT COLLECTED. Performed By: #### L 100.0100, L500.4050 #### [facility] Laboratory [address] [place], [address] ALT Normal <=34 [facility] Comment on above: Result Comment: NOT COLLECTED. Performed By: #### L 100.0100, L500.4050 #### [facility] Laboratory [address] [place], [address] AST Normal <=31 [facility] Comment on above: Result Comment: NOT COLLECTED. Performed By: #### L 100.0100, L500.4050 #### [facility] [address] [place], [address] BUN Normal 4-19 [facility] Comment on above: Result Comment: NOT COLLECTED. Performed By: #### L 100.0100, L500.4050 #### [facility] Laboratory [address] [place], [address] BUN/CRE Normal 10-20 [facility] Comment on above: Result Comment: NOT COLLECTED. Performed By: #### L 100.0100, L500.4050 #### [facility] Laboratory [address] [place], [address] Calcium Normal 7.6-11.0 [facility] Comment on above: Result Comment: NOT COLLECTED. Performed By: #### L 100.0100, L500.4050 #### [facility] [address] [place], [address] CL Normal 98-108 [facility] Comment on above: Result Comment: NOT COLLECTED. Performed By: #### L 100.0100, L500.4050 #### [facility] Laboratory [address] [place], [address] CO2 Normal 21.0-32.0 [facility] Comment on above: Result Comment: NOT COLLECTED. Performed By: #### L 100.0100, L500.4050 #### [facility] Laboratory [address] [place], [address] CREAT,SERUM Normal 0.70-1.20 [facility] Comment on above: Result Comment: NOT COLLECTED. Performed By: #### L 100.0100, L500.4050 #### [facility] Laboratory [address] [place], [address] eGFR Normal >60 [facility] Comment on above: Result Comment: NOT COLLECTED. Performed By: #### L 100.0100, L500.4050 #### [facility] Laboratory [address] [place], [address] GAP Normal 5-15 [facility] Comment on above: Result Comment: NOT COLLECTED. Performed By: #### L 100.0100, L500.4050 #### [facility] Laboratory [address] [place], [address] GLU Normal 70-99 [facility] Comment on above: Result Comment: NOT COLLECTED. Performed By: #### L 100.0100, L500.4050 #### [facility] Laboratory [address] [place], [address] Potassium Normal 3.3-5.1 [facility] Comment on above: Result Comment: NOT COLLECTED. Performed By: #### L 100.0100, L500.4050 #### [facility] Laboratory [address] [place], [address] T BILI Normal 0.00-1.30 [facility] Comment on above: Result Comment: NOT COLLECTED. Performed By: #### L 100.0100, L500.4050 #### [facility] [address] [place], [address] T PROT Normal 5.9-8.4 [facility] Comment on above: Result Comment: NOT COLLECTED. Performed By: #### L 100.0100, L500.4050 #### [facility] Laboratory [address] [place], [address] Comprehensive Metabolic Profil Normal 133-145 [facility] Comment on above: Result Comment: NOT COLLECTED. Performed By: #### L 100.0100, L500.4050 #### [facility] Laboratory [address] [place], [address] Gram stainOrdered By: Mario Potts on 06-23-2024 Microscopic observation Gram stain Nom (Unsp spec) [facility] Routine wound cultureOrdered By: Mario Potts on 06-23-2024 Wound Culture Staphylococcus epidermidis Abnormal [facility] DBT Breast - bilateral scree ningon 06-02-2024 [...] MD Electronically Signed Date/Time: 06/02/2024 3:17 PM [facility] Patient Name: LISA CHAUDHRY : 1980 [facility]#: [id number] Exam Date/Time: 06/02/2024 14:48 Procedure: BI MAMMOGRAM SCREENING TOMOSYNTHESIS BILATERAL Ordering Provider: WORLEY EILEEN Reason For Exam: This exam was performed at [address] [address] RISK ALERT: The Cancer Risk [...] images: BB's = Nipples; skin lesions Open [place] = Palpable Line = Scar COMPARISON: 05/02/2022 and 01/21/2019 TISSUE DENSITY: BIRADS B - There are scattered areas of fibroglandular density. FINDINGS: No suspicious masses, architectural distortions or suspiciously clustered microcalcifications are identified. There is no evidence of skin thickening or nipple retraction. There are no significant changes when compared with prior studies. [facility] Faith Deluca MD - 06/02/2024 Patient Name: LISA CHAUDHRY : 1980 [facility]#: [id number] Exam Date/Time: 06/02/2024 14:48 Procedure: BI MAMMOGRAM SCREENING TOMOSYNTHESIS BILATERAL Ordering Provider: WORLEY EILEEN Reason For Exam: This exam was performed at [address] [facility] [address] RISK ALERT: The Cancer Risk Assessment scores [...] images: BB's = Nipples; skin lesions [place] = Palpable Line = Scar COMPARISON: 05/02/2022 [...] Electronically Signed Date/Time: 06/02/2024 3:17 PM EST [facility] Radiology Study observation (narrative) [facility] DBT Breast - bilateral scree ningOrdered By: Faith Deluca on 06-02-2024 [facility] Work Phone: Bacteria identified Aer cx N om (Unsp spec)Ordered By: Karen Sandhu on 03-27-2024 Interpretation and review of laboratory results Abnormal [facility] CBCon 03-27-2024 Erythrocyte distribution width (RBC) [Ratio] 14.3 % Normal 11.5-14.5 [facility] Hematocrit (Bld) [Volume fraction] 44.4 % Normal 36.0-46.0 [facility] Hemoglobin (Bld) [Mass/Vol] 15.2 g/dL Normal 12.0-16.0 [facility] MCH (RBC) [Entitic mass] 30.4 pg Normal 28.0-32.0 [facility] MCV (RBC) [Entitic vol] 88.9 fL Normal 80.0-99.0 [facility] MEAN CORPUSCULAR HEMOGLOBIN CONC 34.2 g/dL Normal 33.0-37.0 [facility] Platelet mean volume (Bld) [Entitic vol] 8.9 fL Low 9.4-12.4 [facility] Platelets (Bld) [#/Vol] 297 10*3/uL Normal 120-400 [facility] RBC (Bld) [#/Vol] 4.99 10*6/uL Normal 4.00-5.20 [facility] WBC (Bld) [#/Vol] 9.80 10*3/uL Normal 4.80-10.80 [facility] CBC panel Auto (Bld)on 03-27 Erythrocyte distribution width (RBC) [Entitic vol] 14.3 % 11.5 - 14.5 % [facility] Hematocrit (Bld) [Volume fraction] 44.4 % 36.0 - 46.0 % [facility] Hemoglobin (Bld) [Mass/Vol] 15.2 g/dL 12.0 - 16.0 g/dL [facility] Interpretation and review of laboratory results Abnormal [facility] MCH (RBC) [Entitic mass] 30.4 pg 28.0 - 32.0 pg [facility] MCHC (RBC) [Mass/Vol] 34.2 g/dL 33.0 - 37.0 g/dL [facility] MCV (RBC) [Entitic vol] 88.9 fL 80.0 - 99.0 fL [facility] Platelet mean volume (Bld) [Entitic vol] 8.9 fL Low 9.4 - 12.4 fL [facility] Platelets (Bld) [#/Vol] 297 10*3/uL [facility] RBC (Bld) [#/Vol] 4.99 10*6/uL [facility] WBC (Bld) [#/Vol] 9.8 10*3/uL [facility] alth [facility] COMPREHENSIVE METABOLIC PANE Tariq 03-27-2024 Albumin [Mass/Vol] 3.2 g/dL Low 3.5-5.0 [place] Comment on above: Order Comment: [facility] Services has implemented the eGFR calculation approach that does not have a coefficient for race that conforms to the NKF-ASN Task Force Recommendations. ALP [Catalytic activity/Vol] 71 U/L Normal 38-126 [facility] Comment on above: Order Comment: [facility] has implemented the eGFR calculation approach that does not have a coefficient for race that conforms to the NKF-ASN Task Force Recommendations. ALT [Catalytic activity/Vol] 13 U/L Normal 0-35 U/L [facility] Comment on above: Order Comment: [facility] has implemented the eGFR calculation approach that does not have a coefficient for race that conforms to the NKF-ASN Task Force Recommendations. Anion gap [Moles/Vol] 15 mmol/L Normal 10-20 [facility] Comment on above: Order Comment: [facility] has implemented the eGFR calculation approach that does not have a coefficient for race that conforms to the NKF-ASN Task Force Recommendations. AST [Catalytic activity/Vol] 21 U/L Normal 0-35 U/L [facility] Comment on above: Order Comment: [facility] has implemented the eGFR calculation approach that does not have a coefficient for race that conforms to the NKF-ASN Task Force Recommendations. Bilirubin [Mass/Vol] 0.7 mg/dL Normal 0.3-1.2 [facility] Comment on above: Order Comment: [facility] has implemented the eGFR calculation approach that does not have a coefficient for race that conforms to the NKF-ASN Task Force Recommendations. Calcium [Mass/Vol] 8.7 mg/dL Normal 8.4-10.2 [place] Comment on above: Order Comment: [facility] has implemented the eGFR calculation approach that does not have a coefficient for race that conforms to the NKF-ASN Task Force Recommendations. Chloride [Moles/Vol] 106 mmol/L Normal 98-107 [facility] Comment on above: Order Comment: [facility] has implemented the eGFR calculation approach that does not have a coefficient for race that conforms to the NKF-ASN Task Force Recommendations. Creatinine [Mass/Vol] 0.58 mg/dL Normal 0.40-1.10 [facility] Comment on above: Order Comment: [facility] has implemented the eGFR calculation approach that does not have a coefficient for race that conforms to the NKF-ASN Task Force Recommendations. EGFR 115 mL/min/1.73 m2 Normal >=60 [place] Comment on above: Order Comment: [facility] has implemented the eGFR calculation approach that does not have a coefficient for race that conforms to the NKF-ASN Task Force Recommendations. Result Comment: Rosario mated GFR was calculated using the 2020 CKD-EPI creatinine equation. Glucose [Mass/Vol] 109 mg/dL Normal 70-126 [place] Comment on above: Order Comment: [facility] has implemented the eGFR calculation approach that does not have a coefficient for race that conforms to the NKF-ASN Task Force Recommendations. HCO3 (Bld) [Moles/Vol] 20 mmol/L Low 22-31 [facility] Comment on above: Order Comment: [facility] has implemented the eGFR calculation approach that does not have a coefficient for race that conforms to the NKF-ASN Task Force Recommendations. Potassium [Moles/Vol] 3.9 mmol/L Normal 3.5-5.1 [facility] Comment on above: Order Comment: [facility] has implemented the eGFR calculation approach that does not have a coefficient for race that conforms to the NKF-ASN Task Force Recommendations. Protein [Mass/Vol] 7.4 g/dL Normal 6.4-8.3 [place] Comment on above: Order Comment: [facility] has implemented the eGFR calculation approach that does not have a coefficient for race that conforms to the NKF-ASN Task Force Recommendations. Sodium [Moles/Vol] 137 mmol/L Normal 136-145 [place] Comment on above: Order Comment: [facility] has implemented the eGFR calculation approach that does not have a coefficient for race that conforms to the NKF-ASN Task Force Recommendations. Urea nitrogen [Mass/Vol] 14 mg/dL Normal 7-22 [facility] Comment on above: Order Comment: [facility] has implemented the eGFR calculation approach that does not have a coefficient for race that conforms to the NKF-ASN Task Force Recommendations. Urea nitrogen/Creatinine [Mass ratio] 24.1 mg/mg High 10.0-20.0 [facility] Comment on above: Order Comment: [facility] has implemented the eGFR calculation approach that does not have a coefficient for race that conforms to the NKF-ASN Task Force Recommendations. CRP [Mass/Vol]on 03-27-2024 Interpretation and review of laboratory results Normal [facility] CRP, INFLAMMATIONon 03-27-20 CRP (INFLAMMATION) < Normal 0.0-1.0 [place] CRP, Inflammationon 03-27-20 24 CRP [Mass/Vol] mg/L 0.0 - 1.0 mg/L [facility] Comprehensive metabolic 2000 panelon 03-27-2024 Albumin [Mass/Vol] 3.2 g/dL Low 3.5 - 5.0 g/dL [facility] ALP [Catalytic activity/Vol] 71 U/L 38 - 126 U/L [facility] ALT [Catalytic activity/Vol] 13 U/L 0-35 U/L [facility] Anion gap [Moles/Vol] 15 mmol/L 10 - 20 mmol/L [facility] AST [Catalytic activity/Vol] 21 U/L 0-35 U/L [facility] Bilirubin [Mass/Vol] 0.7 mg/dL 0.3 - 1 .2 mg/dL [facility] Calcium [Mass/Vol] 8.7 mg/dL 8.4 - 10. 2 mg/dL [facility] Chloride [Moles/Vol] 106 mmol/L 98 - 10 7 mmol/L [facility] Creatinine [Mass/Vol] 0.58 mg/dL 0.40 - 1.10 mg/dL [facility] GFR/1.73 sq M.predicted CKD-EPI (S/P/Bld) [Vol rate/Area] 115 - PINF [facility] Comment on above: Estimated GFR was ca lculated using the 2020 CKD-EPI creatinine equation. Glucose [Mass/Vol] 109 mg/dL 70 - 126 mg/dL [facility] HCO3 [Moles/Vol] 20 mmol/L Low 22 - 31 mmol/L [facility] Potassium [Moles/Vol] 3.9 mmol/L 3.5 - 5.1 mmol/L [facility] Protein [Mass/Vol] 7.4 g/dL 6.4 - 8.3 g/dL [facility] Sodium [Moles/Vol] 137 mmol/L 136 - 145 mmol/L [facility] Urea nitrogen [Mass/Vol] 14 mg/dL 7 - 22 mg/dL [facility] Urea nitrogen/Creatinine [Mass ratio] 24.1 mg/mg High 10.0 - 20.0 [facility] Labor[facility] y Services has implemented the eGFR calculation approach that does not have a coefficient for race that conforms to the NKF-ASN Task Force Recommendations. [facility] Glucose (Bld) [Mass/Vol]on 05-28-2023 Glucose [Mass/Vol] 115 mg/dL High 65 - 99 mg/dL [facility] Interpretation and review of laboratory results Abnormal [facility] MAGNESIUM LEVELon 03-27-2024 Magnesium [Mass/Vol] 2.2 mg/dL Normal 1.7-2.8 [facility] Magnesium Levelon 03-27-2024 Magnesium [Mass/Vol] 2.2 mg/dL 1.7 - 2 .8 mg/dL [facility] Magnesium [Mass/Vol]on 03-27 Interpretation and review of laboratory results Normal [facility] No Panel Informationon 03-27 Interpretation and review of laboratory results Abnormal [facility] PHOSPHORUSon 03-27-2024 Phosphate [Mass/Vol] 2.3 mg/dL Low 2.5-4.6 [facility] POC GLUCOSE - RALSon 024 Glucose [Mass/Vol] 115 mg/dL High 65-99 [place] PROCALCITONINon 03-27-2024 PROCALCITONIN 0.07 ng/ml Normal <0.50 [facility] Comment on above: Order Comment: [facility] has implemented the eGFR calculation approach that does not have a coefficient for race that conforms to the NKF-ASN Task Force Recommendations. Performed By: #### [id number] ####[facility] [address] [place] [address] Sai Lara M.D. [id number] Phosphoruson 03-27-2024 Phosphate [Mass/Vol] 2.3 mg/dL Low 2.5 - 4 .6 mg/dL [facility] Procalcitoninon 03-27-2024 Procalcitonin [Mass/Vol] 0.07 ng/mL [facility] - 0.[facility] ng/ml [facility] Procalcitonin [Mass/Vol]on 05-28-2023 Interpretation and review of laboratory results Normal [facility] Results <0.50 ng/ml represent a low risk of severe sepsis and/or septic shock. [facility] Urine Aerobic CultureOrdered By: Karen Sandhu on 03-27-2024 Bacteria identified Aer cx Nom (Unsp spec) 10,000-49,000 CFU/mL Escherichia coli Abnormal [facility] Bacteria identified Aer cx Nom (Unsp spec) < 10,000 CFU/mL of normal urogenital microbiota [facility] CBCon 03-26-2024 Erythrocyte distribution width (RBC) [Ratio] 14.5 % Normal 11.5-14.5 [facility] Hematocrit (Bld) [Volume fraction] 48.4 % High 36.0-46.0 [facility] Hemoglobin (Bld) [Mass/Vol] 16.0 g/dL Normal 12.0-16.0 [facility] MCH (RBC) [Entitic mass] 29.9 pg Normal 28.0-32.0 [facility] MCV (RBC) [Entitic vol] 90.7 fL Normal 80.0-99.0 [facility] MEAN CORPUSCULAR HEMOGLOBIN CONC 33.0 g/dL Normal 33.0-37.0 [facility] Platelet mean volume (Bld) [Entitic vol] 8.3 fL Low 9.4-12.4 [facility] Platelets (Bld) [#/Vol] 288 10*3/uL Normal 120-400 [facility] RBC (Bld) [#/Vol] 5.33 10*6/uL High 4.00-5.20 [facility] WBC (Bld) [#/Vol] 12.70 10*3/uL High 4.80-10.80 [facility] CBC panel Auto (Bld)on 03-26 Erythrocyte distribution width (RBC) [Entitic vol] 14.5 % 11.5 - 14.5 % [facility] Hematocrit (Bld) [Volume fraction] 48.4 % High 36.0 - 46.0 % [facility] Hemoglobin (Bld) [Mass/Vol] 16 g/dL 12.0 - 16.0 g/dL [facility] Interpretation and review of laboratory results Abnormal [facility] MCH (RBC) [Entitic mass] 29.9 pg 28.0 - 32.0 pg [facility] MCHC (RBC) [Mass/Vol] 33 g/dL 33.0 - 37.0 g/dL [facility] MCV (RBC) [Entitic vol] 90.7 fL 80.0 - 99.0 fL [facility] Platelet mean volume (Bld) [Entitic vol] 8.3 fL Low 9.4 - 12.4 fL [facility] Platelets (Bld) [#/Vol] 288 10*3/uL [facility] RBC (Bld) [#/Vol] 5.33 10*6/uL High [facility] WBC (Bld) [#/Vol] 12.7 10*3/uL High [facility] COMPREHENSIVE METABOLIC PANE Tariq 03-26-2024 Albumin [Mass/Vol] 3.2 g/dL Low 3.5-5.0 [place] Comment on above: Order Comment: [facility] has implemented the eGFR calculation approach that does not have a coefficient for race that conforms to the NKF-ASN Task Force Recommendations. ALP [Catalytic activity/Vol] 81 U/L Normal 38-126 [facility] Comment on above: Order Comment: [facility] has implemented the eGFR calculation approach that does not have a coefficient for race that conforms to the NKF-ASN Task Force Recommendations. ALT [Catalytic activity/Vol] 13 U/L Normal 0-35 U/L [facility] Comment on above: Order Comment: [facility] has implemented the eGFR calculation approach that does not have a coefficient for race that conforms to the NKF-ASN Task Force Recommendations. Anion gap [Moles/Vol] 15 mmol/L Normal 10-20 [facility] Comment on above: Order Comment: [facility] has implemented the eGFR calculation approach that does not have a coefficient for race that conforms to the NKF-ASN Task Force Recommendations. AST [Catalytic activity/Vol] 15 U/L Normal 0-35 U/L [facility] Comment on above: Order Comment: [facility] has implemented the eGFR calculation approach that does not have a coefficient for race that conforms to the NKF-ASN Task Force Recommendations. Bilirubin [Mass/Vol] 0.5 mg/dL Normal 0.3-1.2 [facility] Comment on above: Order Comment: [facility] has implemented the eGFR calculation approach that does not have a coefficient for race that conforms to the NKF-ASN Task Force Recommendations. Calcium [Mass/Vol] 8.8 mg/dL Normal 8.4-10.2 [place] Comment on above: Order Comment: [facility] has implemented the eGFR calculation approach that does not have a coefficient for race that conforms to the NKF-ASN Task Force Recommendations. Chloride [Moles/Vol] 105 mmol/L Normal 98-107 [facility] Comment on above: Order Comment: [facility] has implemented the eGFR calculation approach that does not have a coefficient for race that conforms to the NKF-ASN Task Force Recommendations. Creatinine [Mass/Vol] 0.34 mg/dL Low 0.40-1.10 [facility] Comment on above: Order Comment: [facility] has implemented the eGFR calculation approach that does not have a coefficient for race that conforms to the NKF-ASN Task Force Recommendations. EGFR 130 mL/min/1.73 m2 Normal >=60 [place] Comment on above: Order Comment: [facility] has implemented the eGFR calculation approach that does not have a coefficient for race that conforms to the NKF-ASN Task Force Recommendations. Result Comment: Rosario mated GFR was calculated using the 2020 CKD-EPI creatinine equation. Glucose [Mass/Vol] 112 mg/dL Normal 70-126 [place] Comment on above: Order Comment: [facility] has implemented the eGFR calculation approach that does not have a coefficient for race that conforms to the NKF-ASN Task Force Recommendations. HCO3 (Bld) [Moles/Vol] 19 mmol/L Low 22-31 [facility] Comment on above: Order Comment: [facility] has implemented the eGFR calculation approach that does not have a coefficient for race that conforms to the NKF-ASN Task Force Recommendations. Potassium [Moles/Vol] 3.6 mmol/L Normal 3.5-5.1 [facility] Comment on above: Order Comment: [facility] has implemented the eGFR calculation approach that does not have a coefficient for race that conforms to the NKF-ASN Task Force Recommendations. Protein [Mass/Vol] 7.6 g/dL Normal 6.4-8.3 [place] Comment on above: Order Comment: [facility] has implemented the eGFR calculation approach that does not have a coefficient for race that conforms to the NKF-ASN Task Force Recommendations. Sodium [Moles/Vol] 135 mmol/L Low 136-145 [place] Comment on above: Order Comment: [facility] has implemented the eGFR calculation approach that does not have a coefficient for race that conforms to the NKF-ASN Task Force Recommendations. Urea nitrogen [Mass/Vol] 15 mg/dL Normal 7-22 [facility] Comment on above: Order Comment: [facility] has implemented the eGFR calculation approach that does not have a coefficient for race that conforms to the NKF-ASN Task Force Recommendations. Urea nitrogen/Creatinine [Mass ratio] 44.1 mg/mg High 10.0-20.0 [facility] Comment on above: Order Comment: [facility] has [...] EST RP Dictated by: MIKE MARIEE IN [employer] on FriMar 26, 2024 10:54:44 AM EST Transcribed by: MIKE MARIEE IN [employer] on FriMar 26, 2024 10:54:44 AM EST Finalized by: MIKE MARIEE IN [employer] on FriMar 26, 2024 10:54:44 AM EST [facility] Comment on above: Order Comment: Injur [...] Lazaro MD 03/26/2024 10:54 AM EST RP [facility] Abdomen and Pelvi s with Contrast [...] at L2-L3. No lymphadenopathy. No free fluid. [place] Cassy Pitts MD - 03/26/2024 CT Abdomen [...] Lazaro MD 03/26/2024 10:54 AM EST RP [facility] Radiology Study observation (narrative) [facility] CT CHEST WITH CONTRASTon CT CHEST WITH [...] EST RP Dictated by: MIKE MARIEE IN [employer] on FriMar 26, 2024 10:41:20 AM EST Transcribed by: MIKE MARIEE IN [employer] on FriMar 26, 2024 10:41:20 AM EST Finalized by: MIKE MARIEE IN [employer] on FriMar 26, 2024 10:41:20 AM EST Normal [facility] Comment on above: Order Comment: [...] Cassy Lazaro MD 03/26/2024 10:[address] [address] chest with contra st INDICATION: Pneumonia, [...] 1.4 cm heterogeneous low-density right thyroid nodule. [place] Cassy Lazaro MD - 03/26/2024 CT chest [...] Cassy Lazaro MD 03/26/2024 10:41 AM EST [facility] Radiology Study observation (narrative) [facility] CT Chest W contrast IVOrdere d By: Cassy Lazaro on 03-26-2024 [facility] Comprehensive metabolic 2000 panelon 03-26-2024 Albumin [Mass/Vol] 3.2 g/dL Low 3.5 - 5.0 g/dL [facility] ALP [Catalytic activity/Vol] 81 U/L 38 - 126 U/L [facility] ALT [Catalytic activity/Vol] 13 U/L 0-35 U/L [facility] Anion gap [Moles/Vol] 15 mmol/L 10 - 20 mmol/L [facility] AST [Catalytic activity/Vol] 15 U/L 0-35 U/L [facility] Bilirubin [Mass/Vol] 0.5 mg/dL 0.3 - 1 .2 mg/dL [facility] Calcium [Mass/Vol] 8.8 mg/dL 8.4 - 10. 2 mg/dL [facility] Chloride [Moles/Vol] 105 mmol/L 98 - 10 7 mmol/L [facility] Creatinine [Mass/Vol] 0.34 mg/dL Low 0.40 - 1.10 mg/dL [facility] GFR/1.73 sq M.predicted CKD-EPI (S/P/Bld) [Vol rate/Area] 130 - PINF [facility] Comment on above: Estimated GFR was ca lculated using the 2020 CKD-EPI creatinine equation. Glucose [Mass/Vol] 112 mg/dL 70 - 126 mg/dL [facility] HCO3 [Moles/Vol] 19 mmol/L Low 22 - 31 mmol/L [facility] Potassium [Moles/Vol] 3.6 mmol/L 3.5 - 5.1 mmol/L [facility] Protein [Mass/Vol] 7.6 g/dL 6.4 - 8.3 g/dL [facility] Sodium [Moles/Vol] 135 mmol/L Low 136 - 145 mmol/L [facility] Urea nitrogen [Mass/Vol] 15 mg/dL 7 - 22 mg/dL [facility] Urea nitrogen/Creatinine [Mass ratio] 44.1 mg/mg High 10.0 - 20.0 [facility] y [facility] has implemented the eGFR calculation approach that does not have a coefficient for race that conforms to the NKF-ASN Task Force Recommendations. [facility] ECHOCARDIOGRAM COMPLETEon ECHOCARDIOGRAM COMPLETE Patient Info Name: LISA CHAUDHRY Age: 43 years : 1980 Gender: Female Ht: 173 cm Wt: 66 kg BSA: 1.78 m2 Exam Date: 03/26/2024 11:46 AM Patient Status: Outpatient Welt Maker: Radha Malik RDCS Exam Type: ECHOCARDIOGRAM COMPLETE Study Info Indications - Valve disease/murmur Attending Physician: CLARENCE WYNN [id number] BMI: 22.20 kg/m2 Procedure(s): Complete two-dimensional, color [...] mmHg MV VTI 20 cm MV Decel Glasscock 581 cm/s2 MV PHT 35 ms MV [...] Regurgitation 2D (more content not included)... Normal [facility] Echo completeOrdered By: Adelfo Bernard on 03-26-2024 Aortic valve area 3.62289 cm [facility] Work Phone: AV mean gradient [address] [facility] Work Phone: AV peak gradient [address] [facility] Work Phone: [facility] Work Phone: Echo completeon 03-26-2024 Patient Info Name: LISA CHAUDHRY Age: 43 years : 1980 Gender: Female Ht: 173 cm Wt: 66 kg BSA: 1.78 m2 Exam Date: 03/26/2024 11:46 AM Patient Status: Outpatient Welt Maker: King, Radha RDCS Exam Type: ECHOCARDIOGRAM COMPLETE Study Info Indications - Valve disease/murmur Attending Physician: CLARENCE WYNN [id number] BMI: 22.20 kg/m2 Procedure(s): Complete two-dimensional, color [...] mmHg MV VTI 20 cm MV Decel Glasscock 581 cm/s2 MV PHT 35 ms MV [...] Date: 03/26/2024 11:46 AM Patient Status: Outpatient Welt Maker: Radha Malik SHRUTI Exam Type: ECHOCARDIOGRAM COMPLETE Study Info Indications - Valve disease/murmur Attending Physician: CLARENCE WYNN [id number] BMI: 22.20 kg/m2 Procedure(s): Complete two-dimensional, color [...] mmHg MV VTI 20 cm MV Decel Glasscock 581 cm/s2 MV PHT 35 ms MV [...] (Cont Eq Ve (more content not included)... [facility] Gold Topon 03-26-2024 Extra Tube Hold for add-ons. [facility] Comment on above: Auto resulted. [facility] Mg Topon 03-26-2024 Extra Tube Hold for add-ons. [facility] Comment on above: Auto resulted. [facility] LIPASEon 03-26-2024 Lipase [Catalytic activity/Vol] 31 U/L Normal 22-51 [facility] Lipaseon 03-26-2024 Lipase [Catalytic activity/Vol] 31 U/L 22 - 51 U/L [facility] Lipase [Catalytic activity/V ol]on 03-26-2024 Interpretation and review of laboratory results Normal [facility] MAGNESIUM LEVELon 03-26-2024 Magnesium [Mass/Vol] 2.1 mg/dL Normal 1.7-2.8 [facility] MRSA DNA AMPLIFIED PROBEon 1 05-27-2023 MRSA DNA AMPLIFIED PROBE Not detected Normal Not Detected, MRSA NEGATIVE [facility] Comment on above: Performed By: #### [id number] #### [facility] [address] [place] [id number] Sai Lara M.D. [id number] MRSA DNA Amplified ProbeOrde red By: Ricky Pride on 03-26-2024 MRSA DNA CHANDANA+probe Ql (Unsp spec) Not detected Not Detected, MRSA NEGATIVE [facility] MRSA DNA CHANDANA+probe Ql (Unsp spec)Ordered By: Ricky Pride on 03-26-2024 Interpretation and review of laboratory results Normal [facility] Magnesium Levelon 03-26-2024 Magnesium [Mass/Vol] 2.1 mg/dL 1.7 - 2 .8 mg/dL [facility] Magnesium [Mass/Vol]on 03-26 Interpretation and review of laboratory results Normal [facility] No Panel Informationon 03-26 Interpretation and review of laboratory results Abnormal [facility] PHOSPHORUSon 03-26-2024 Phosphate [Mass/Vol] 1.9 mg/dL Low 2.5-4.6 [facility] Phosphoruson 03-26-2024 Phosphate [Mass/Vol] 1.9 mg/dL Low 2.5 - 4 .6 mg/dL [facility] VANCOMYCIN LEVEL, RANDOMon 1 05-27-2023 VANCOMYCIN RANDOM 7.8 mcg/mL Normal [facility] Comment on above: Order Comment: As of 01/2022 vancomycin dosing for [facility] inpatients will be done by Bayesian dosing software rather than off traditional trough values. Please contact the site specific inpatient pharmacy before making dose changes off of trough values alone for admitted patients. No established reference range. Vancomycin Level, Randomon 1 05-27-2023 Vancomycin [Mass/Vol] 7.8 mcg/mL [facility] Vancomycin [Mass/Vol]on As of 01/2022 vancom ycin dosing for [facility] inpatients will be done by Bayesian dosing software rather than off traditional trough values. Please contact the site specific inpatient pharmacy before making dose changes off of trough values alone for admitted patients. No established reference range. [facility] BASIC METABOLIC PANELon Anion gap [Moles/Vol] 15 mmol/L Normal 10-20 [facility] Comment on above: Order Comment: [facility] has implemented the eGFR calculation approach that does not have a coefficient for race that conforms to the NKF-ASN Task Force Recommendations. Calcium [Mass/Vol] 8.7 mg/dL Normal 8.4-10.2 [place] Comment on above: Order Comment: [facility] has implemented the eGFR calculation approach that does not have a coefficient for race that conforms to the NKF-ASN Task Force Recommendations. Chloride [Moles/Vol] 107 mmol/L Normal 98-107 [facility] Comment on above: Order Comment: [facility] has implemented the eGFR calculation approach that does not have a coefficient for race that conforms to the NKF-ASN Task Force Recommendations. Creatinine [Mass/Vol] 0.42 mg/dL Normal 0.40-1.10 [facility] Comment on above: Order Comment: [facility] has implemented the eGFR calculation approach that does not have a coefficient for race that conforms to the NKF-ASN Task Force Recommendations. EGFR 124 mL/min/1.73 m2 Normal >=60 [place] Comment on above: Order Comment: [facility] has implemented the eGFR calculation approach that does not have a coefficient for race that conforms to the NKF-ASN Task Force Recommendations. Result Comment: Rosario mated GFR was calculated using the 2020 CKD-EPI creatinine equation. Glucose [Mass/Vol] 122 mg/dL Normal 70-126 [place] Comment on above: Order Comment: [facility] Laboratory [facility] has implemented the eGFR calculation approach that does not have a coefficient for race that conforms to the NKF-ASN Task Force Recommendations. HCO3 (Bld) [Moles/Vol] 20 mmol/L Low 22-31 [facility] Comment on above: Order Comment: [facility] Laboratory [facility] has implemented the eGFR calculation approach that does not have a coefficient for race that conforms to the NKF-ASN Task Force Recommendations. Potassium [Moles/Vol] 4.0 mmol/L Normal 3.5-5.1 [facility] Comment on above: Order Comment: [facility] Laboratory [facility] has implemented the eGFR calculation approach that does not have a coefficient for race that conforms to the NKF-ASN Task Force Recommendations. Sodium [Moles/Vol] 138 mmol/L Normal 136-145 [place] Comment on above: Order Comment: [facility] Laboratory [facility] has implemented the eGFR calculation approach that does not have a coefficient for race that conforms to the NKF-ASN Task Force Recommendations. Urea nitrogen [Mass/Vol] 13 mg/dL Normal 7-22 [facility] Comment on above: Order Comment: [facility] has implemented the eGFR calculation approach that does not have a coefficient for race that conforms to the NKF-ASN Task Force Recommendations. Urea nitrogen/Creatinine [Mass ratio] 31.0 mg/mg High 10.0-20.0 [facility] Comment on above: Order Comment: [facility] Laboratory [facility] has implemented the eGFR calculation approach that does not have a coefficient for race that conforms to the NKF-ASN Task Force Recommendations. Anion gap [Moles/Vol] 16 mmol/L Normal 10-20 [facility] Comment on above: Order Comment: [facility] Laboratory [facility] has implemented the eGFR calculation approach that does not have a coefficient for race that conforms to the NKF-ASN Task Force Recommendations. Calcium [Mass/Vol] 8.8 mg/dL Normal 8.4-10.2 [place] Comment on above: Order Comment: [facility] Laboratory [facility] has implemented the eGFR calculation approach that does not have a coefficient for race that conforms to the NKF-ASN Task Force Recommendations. Chloride [Moles/Vol] 106 mmol/L Normal 98-107 [facility] Comment on above: Order Comment: [facility] Laboratory [facility] has implemented the eGFR calculation approach that does not have a coefficient for race that conforms to the NKF-ASN Task Force Recommendations. Creatinine [Mass/Vol] 0.56 mg/dL Normal 0.40-1.10 [facility] Comment on above: Order Comment: [facility] Laboratory [facility] has implemented the eGFR calculation approach that does not have a coefficient for race that conforms to the NKF-ASN Task Force Recommendations. EGFR 116 mL/min/1.73 m2 Normal >=60 [place] Comment on above: Order Comment: [facility] Laboratory [facility] has implemented the eGFR calculation approach that does not have a coefficient for race that conforms to the NKF-ASN Task Force Recommendations. Result Comment: Rosario mated GFR was calculated using the 2020 CKD-EPI creatinine equation. Glucose [Mass/Vol] 123 mg/dL Normal 70-126 [place] Comment on above: Order Comment: [facility] has implemented the eGFR calculation approach that does not have a coefficient for race that conforms to the NKF-ASN Task Force Recommendations. HCO3 (Bld) [Moles/Vol] 18 mmol/L Low 22-31 [facility] Comment on above: Order Comment: [facility] has implemented the eGFR calculation approach that does not have a coefficient for race that conforms to the NKF-ASN Task Force Recommendations. Potassium [Moles/Vol] 3.2 mmol/L Low 3.5-5.1 [facility] Comment on above: Order Comment: [facility] has implemented the eGFR calculation approach that does not have a coefficient for race that conforms to the NKF-ASN Task Force Recommendations. Sodium [Moles/Vol] 137 mmol/L Normal 136-145 [place] Comment on above: Order Comment: [facility] has implemented the eGFR calculation approach that does not have a coefficient for race that conforms to the NKF-ASN Task Force Recommendations. Urea nitrogen [Mass/Vol] 12 mg/dL Normal 7-22 [facility] Comment on above: Order Comment: [facility] has implemented the eGFR calculation approach that does not have a coefficient for race that conforms to the NKF-ASN Task Force Recommendations. Urea nitrogen/Creatinine [Mass ratio] 21.4 mg/mg High 10.0-20.0 [facility] Comment on above: Order Comment: [facility] has implemented the eGFR calculation approach that does not have a coefficient for race that conforms to the NKF-ASN Task Force Recommendations. BLOOD CULTURE AEROBIC/ANAERO BICon 03-25-2024 BLOOD CULTURE AEROBIC/ANAEROBIC BLOOD CULTURE No Growth after 5 days Normal [facility] Comment on above: Performed By: #### [id number] ####[facility] [address] [place] [id number] Sai Lara M.D. [id number] BLOOD CULTURE AEROBIC/ANAEROBIC BLOOD CULTURE No Growth after 5 days Normal [facility] Comment on above: Performed By: #### [id number] #### [facility] [address] [address] Sai Lara M.D. [id number] Basic metabolic 2000 panelon 03-25-2024 Anion gap [Moles/Vol] 15 mmol/L 10 - 20 mmol/L [facility] Calcium [Mass/Vol] 8.7 mg/dL 8.4 - 10. 2 mg/dL [facility] Chloride [Moles/Vol] 107 mmol/L 98 - 10 7 mmol/L [facility] Creatinine [Mass/Vol] 0.42 mg/dL 0.40 - 1.10 mg/dL [facility] GFR/1.73 sq M.predicted CKD-EPI (S/P/Bld) [Vol rate/Area] 124 - PINF [facility] Comment on above: Estimated GFR was ca lculated using the 2020 CKD-EPI creatinine equation. Glucose [Mass/Vol] 122 mg/dL 70 - 126 mg/dL [facility] HCO3 [Moles/Vol] 20 mmol/L Low 22 - 31 mmol/L [facility] Interpretation and review of laboratory results Abnormal [facility] Potassium [Moles/Vol] 4 mmol/L 3.5 - 5.1 mmol/L [facility] Sodium [Moles/Vol] 138 mmol/L 136 - 145 mmol/L [facility] Urea nitrogen [Mass/Vol] 13 mg/dL 7 - 22 mg/dL [facility] Urea nitrogen/Creatinine [Mass ratio] 31 mg/mg High 10.0 - 20.0 [facility] has implemented the eGFR calculation approach that does not have a coefficient for race that conforms to the NKF-ASN Task Force Recommendations. [facility] Anion gap [Moles/Vol] 16 mmol/L 10 - 20 mmol/L [facility] Calcium [Mass/Vol] 8.8 mg/dL 8.4 - 10. 2 mg/dL [facility] Chloride [Moles/Vol] 106 mmol/L 98 - 10 7 mmol/L [facility] Creatinine [Mass/Vol] 0.56 mg/dL 0.40 - 1.10 mg/dL [facility] GFR/1.73 sq M.predicted CKD-EPI (S/P/Bld) [Vol rate/Area] 116 - PINF [facility] Comment on above: Estimated GFR was ca lculated using the 2020 CKD-EPI creatinine equation. Glucose [Mass/Vol] 123 mg/dL 70 - 126 mg/dL [facility] HCO3 [Moles/Vol] 18 mmol/L Low 22 - 31 mmol/L [facility] Interpretation and review of laboratory results Abnormal [facility] Potassium [Moles/Vol] 3.2 mmol/L Low 3.5 - 5.1 mmol/L [facility] Sodium [Moles/Vol] 137 mmol/L 136 - 145 mmol/L [facility] Urea nitrogen [Mass/Vol] 12 mg/dL 7 - 22 mg/dL [facility] Urea nitrogen/Creatinine [Mass ratio] 21.4 mg/mg High 10.0 - 20.0 [facility] has implemented the eGFR calculation approach that does not have a coefficient for race that conforms to the NKF-ASN Task Force Recommendations. [facility] Beta HCG ( test) Ql Ordered By: Anita Yip on 03-25-2024 Interpretation and review of laboratory results Normal [facility] CBC Auto Differentialon Basophils (Bld) [#/Vol] 0 10*3/uL [facility] Basophils/100 WBC (Bld) 0.1 % 0.0 - 3.0 % [facility] Eosinophils (Bld) [#/Vol] 0 10*3/uL [facility] Eosinophils/100 WBC (Bld) 0.1 % 0.0 - 4.0 % [facility] Erythrocyte distribution width (RBC) [Entitic vol] 14.4 % 11.5 - 14.5 % [facility] Hematocrit (Bld) [Volume fraction] 49.9 % High 36.0 - 46.0 % [facility] Hemoglobin (Bld) [Mass/Vol] 16.1 g/dL High 12.0 - 16.0 g/dL [facility] Interpretation and review of laboratory results Abnormal [facility] Lymphocytes (Bld) [#/Vol] 1.3 10*3/uL [facility] Lymphocytes/100 WBC (Bld) 7.8 % Low 17.6 - 49.6 % [facility] MCH (RBC) [Entitic mass] 29.6 pg 28.0 - 32.0 pg [facility] MCHC (RBC) [Mass/Vol] 32.3 g/dL Low 33.0 - 37.0 g/dL [facility] MCV (RBC) [Entitic vol] 91.5 fL 80.0 - 99.0 fL [facility] Monocytes (Bld) [#/Vol] 1.5 10*3/uL High [facility] Monocytes/100 WBC (Bld) 8.5 % 4.1 - 12.4 % [facility] Neutrophils (Bld) [#/Vol] 14.2 10*3/uL [facility] Neutrophils/100 WBC (Bld) 83.5 % High 39.4 - 72.5 % [facility] Platelet mean volume (Bld) [Entitic vol] 8.3 fL Low 9.4 - 12.4 fL [facility] Platelets (Bld) [#/Vol] 310 10*3/uL [facility] RBC (Bld) [#/Vol] 5.45 10*6/uL [facility] ealt WBC (Bld) [#/Vol] 17 10*3/uL [facility] CBC WITH AUTO DIFFERENTIALon 03-25-2024 BASOPHILS ABSOLUTE COUNT 0.00 K/mcL Normal 0.00-0.30 [facility] Basophils/100 WBC (Bld) 0.1 % Normal 0.0-3.0 [facility] Eosinophils (Bld) [#/Vol] 0.00 10*3/uL Normal 0.00-0.50 [facility] Eosinophils/100 WBC (Bld) 0.1 % Normal 0.0-4.0 [facility] Erythrocyte distribution width (RBC) [Ratio] 14.4 % Normal 11.5-14.5 [facility] Hematocrit (Bld) [Volume fraction] 49.9 % High 36.0-46.0 [facility] Hemoglobin (Bld) [Mass/Vol] 16.1 g/dL High 12.0-16.0 [facility] Lymphocytes (Bld) [#/Vol] 1.30 10*3/uL Normal 0.90-4.00 [facility] Lymphocytes/100 WBC (Bld) 7.8 % Low 17.6-49.6 [facility] MCH (RBC) [Entitic mass] 29.6 pg Normal 28.0-32.0 [facility] MCV (RBC) [Entitic vol] 91.5 fL Normal 80.0-99.0 [facility] MEAN CORPUSCULAR HEMOGLOBIN CONC 32.3 g/dL Low 33.0-37.0 [facility] Monocytes (Bld) [#/Vol] 1.50 10*3/uL High 0.30-0.90 [facility] Monocytes/100 WBC (Bld) 8.5 % Normal 4.1-12.4 [facility] NEUTROPHILS ABSOLUTE COUNT 14.20 K/mcL High 1.70-7.00 [facility] Neutrophils/100 WBC (Bld) 83.5 % High 39.4-72.5 [facility] Platelet mean volume (Bld) [Entitic vol] 8.3 fL Low 9.4-12.4 [facility] Platelets (Bld) [#/Vol] 310 10*3/uL Normal 120-400 [facility] RBC (Bld) [#/Vol] 5.45 10*6/uL High 4.00-5.20 [facility] WBC (Bld) [#/Vol] 17.00 10*3/uL High 4.80-10.80 [facility] CRP [Mass/Vol]on 03-25-2024 Interpretation and review of laboratory results Normal [facility] CRP, INFLAMMATIONon 03-25-20 CRP (INFLAMMATION) < Normal 0.0-1.0 [place] CRP, Inflammationon 03-25-20 24 CRP [Mass/Vol] mg/L 0.0 - 1.0 mg/L [facility] EKG 12-leadon 03-25-2024 Atrial Rate 58 BPM [facility] P [place] 59 degrees [facility] P-R Interval 154 ms [facility] Q-T Interval 438 ms [facility] QRS Duration 74 ms [facility] QTC Calculation (Bezet) 429 ms [facility] R [place] 32 degrees [facility] T [place] 26 degrees [facility] Ventricular Rate 58 BPM [facility] th Sinus bradycardia wi th sinus arrhythmia Otherwise normal ECG When compared with ECG of 16-JUL-2007 19:15, Minimal criteria for Anteroseptal infarct are no longer Present Nonspecific T wave abnormality now evident in Inferior leads ECG Cart Interpretation see physician note for interpretation. Confirmed by [facility] Rachel, Cassie Ramos ([id number]), news editor July Rosario ([id number]) on 03/25/2024 7:51:34 AM MUSE [facility] Free T4 [Mass/Vol]on 024 Interpretation and review of laboratory results Normal [facility] Interpretation and review of laboratory results Normal [facility] Gold Topon 03-25-2024 Extra Tube Hold for add-ons. [facility] Comment on above: Auto resulted. [facility] HbA1c (Bld) [Mass fraction]o n 03-25-2024 Average glucose Estimated from glycated hemoglobin (Bld) [Mass/Vol] 117 mg/dL High 74 - 114 mg/dL [facility] Interpretation and review of laboratory results Abnormal [facility] Normal: 4.2% - 5.6% Increased risk for diabetes: 5.7% - 6.4% Diabetes: >= 6.5% Pediatrics: No established reference range Estimated average glucose: 74-114 mg/dL [facility] Hemoglobin A1con 03-25-2024 HbA1c (Bld) [Mass fraction] 5.7 % High 4.2 - 5.6 % [facility] LACTIC ACID, PLASMAon 2023 LACTIC ACID, PLASMA 1.1 mmol/L Normal 0.5-2.2 [facility] Lactate [Moles/Vol]Ordered B y: Jamaica Trujillo on 03-25-2024 Interpretation and review of laboratory results Normal [facility] Lactic Acid, PlasmaOrdered B y: Jamaica Turjillo on 03-25-2024 Lactate [Moles/Vol] 1.1 mmol/L 0.5 - 2. 2 mmol/L [facility] MAGNESIUM LEVELon 03-25-2024 Magnesium [Mass/Vol] 1.9 mg/dL Normal 1.7-2.8 [facility] Magnesium Levelon 03-25-2024 Magnesium [Mass/Vol] 1.9 mg/dL 1.7 - 2 .8 mg/dL [facility] No Panel Informationon 03-25 Interpretation and review of laboratory results Normal [facility] PHOSPHORUSon 03-25-2024 Phosphate [Mass/Vol] 2.5 mg/dL Normal 2.5-4.6 [facility] PROCALCITONINon 03-25-2024 PROCALCITONIN 0.06 ng/ml Normal <0.50 [facility] Comment on above: Order Comment: Resul ts <0.50 ng/ml represent a low risk of severe sepsis and/or septic shock. Performed By: #### [id number] ####[facility] [address] [place] [id number] Sai Lara M.D. [id number] Phosphoruson 03-25-2024 Phosphate [Mass/Vol] 2.5 mg/dL 2.5 - 4 .6 mg/dL [facility] Procalcitoninon 03-25-2024 Procalcitonin [Mass/Vol] 0.06 ng/mL NINF - 0.50 ng/ml [facility] Procalcitonin [Mass/Vol]on 05-26-2023 Interpretation and review of laboratory results Normal [facility] Results <0.50 ng/ml represent a low risk of severe sepsis and/or septic shock. [facility] T4, FREEon 03-25-2024 Free T4 [Mass/Vol] 1.2 ng/dL Normal 0.7-1.7 [place] Comment on above: Performed By: #### [id number] #### [facility] [address] [place] [id number] Sai Lara M.D. [id number] T4, Freeon 03-25-2024 Free T4 [Mass/Vol] 1.2 ng/dL 0.7 - 1.7 ng/dL [facility] Free T4 [Mass/Vol] 1.3 ng/dL 0.7 - 1.7 ng/dL [facility] hCG, Serum, QualitativeOrder ed By: Anita Yip on 03-25-2024 Beta HCG ( test) Ql Negative Negative [facility] ALCOHOL, MEDICALon ALCOHOL MEDICAL < Normal <10.0 [facility] Comment on above: Result Comment: Alco hol cutoff: <10.00 mg/dL = None Detected AMMONIAon 03-24-2024 AMMONIA 26 micromol/L Normal 9-35 [facility] Ammoniaon 03-24-2024 Ammonia (P) [Mass/Vol] 26 ug/dL [facility] Ammonia (P) [Mass/Vol]on Interpretation and review of laboratory results Normal [facility] BLOOD GAS, VENOUSon 03-24-20 24 FIO2 TEXT FROM QUESTION 21 %/L Normal [facility] Oxygen saturation in Blood 87.0 % High 40.0-70.0 [facility] PCO2 VENOUS 34.4 mm Hg Low 41.0-51.0 [facility] PH VENOUS 7.41 Normal 7.31-7.41 [facility] PO2 VENOUS 54 mm Hg High 25-40 [facility] BRAIN NATRIURETIC PEPTIDE - VWHon 03-24-2024 Natriuretic peptide B (Bld) [Mass/Vol] 123 pg/mL High 15-100 [facility] CBC Auto Differentialon Basophils (Bld) [#/Vol] 0 10*3/uL [facility] Basophils/100 WBC (Bld) 0.2 % 0.0 - 3.0 % [facility] Eosinophils (Bld) [#/Vol] 0 10*3/uL [facility] Eosinophils/100 WBC (Bld) 0.1 % 0.0 - 4.0 % [facility] Erythrocyte distribution width (RBC) [Entitic vol] 14.3 % 11.5 - 14.5 % [facility] Hematocrit (Bld) [Volume fraction] 50.2 % High 36.0 - 46.0 % [facility] Hemoglobin (Bld) [Mass/Vol] 16.5 g/dL High 12.0 - 16.0 g/dL [facility] Interpretation and review of laboratory results Abnormal [facility] Lymphocytes (Bld) [#/Vol] 0.7 10*3/uL Low [facility] Lymphocytes/100 WBC (Bld) 5.5 % Low 17.6 - 49.6 % [facility] MCH (RBC) [Entitic mass] 29.7 pg 28.0 - 32.0 pg [facility] MCHC (RBC) [Mass/Vol] 32.9 g/dL Low 33.0 - 37.0 g/dL [facility] MCV (RBC) [Entitic vol] 90.3 fL 80.0 - 99.0 fL [facility] Monocytes (Bld) [#/Vol] 0.2 10*3/uL Low [facility] Monocytes/100 WBC (Bld) 1.8 % Low 4.1 - 12.4 % [facility] Neutrophils (Bld) [#/Vol] 11.5 10*3/uL High [facility] Neutrophils/100 WBC (Bld) 92.4 % High 39.4 - 72.5 % [facility] Platelet mean volume (Bld) [Entitic vol] 8.3 fL Low 9.4 - 12.4 fL [facility] Platelets (Bld) [#/Vol] 303 10*3/uL [facility] RBC (Bld) [#/Vol] 5.56 10*6/uL High [facility] WBC (Bld) [#/Vol] 12.4 10*3/uL [facility] CBC WITH AUTO DIFFERENTIALon 03-24-2024 BASOPHILS ABSOLUTE COUNT 0.00 K/mcL Normal 0.00-0.30 [facility] Basophils/100 WBC (Bld) 0.2 % Normal 0.0-3.0 [facility] Eosinophils (Bld) [#/Vol] 0.00 10*3/uL Normal 0.00-0.50 [facility] Eosinophils/100 WBC (Bld) 0.1 % Normal 0.0-4.0 [facility] Erythrocyte distribution width (RBC) [Ratio] 14.3 % Normal 11.5-14.5 [facility] Hematocrit (Bld) [Volume fraction] 50.2 % High 36.0-46.0 [facility] Hemoglobin (Bld) [Mass/Vol] 16.5 g/dL High 12.0-16.0 [facility] Lymphocytes (Bld) [#/Vol] 0.70 10*3/uL Low 0.90-4.00 [facility] Lymphocytes/100 WBC (Bld) 5.5 % Low 17.6-49.6 [facility] MCH (RBC) [Entitic mass] 29.7 pg Normal 28.0-32.0 [facility] MCV (RBC) [Entitic vol] 90.3 fL Normal 80.0-99.0 [facility] MEAN CORPUSCULAR HEMOGLOBIN CONC 32.9 g/dL Low 33.0-37.0 [facility] Monocytes (Bld) [#/Vol] 0.20 10*3/uL Low 0.30-0.90 [facility] Monocytes/100 WBC (Bld) 1.8 % Low 4.1-12.4 [facility] NEUTROPHILS ABSOLUTE COUNT 11.50 K/mcL High 1.70-7.00 [facility] Neutrophils/100 WBC (Bld) 92.4 % High 39.4-72.5 [facility] Platelet mean volume (Bld) [Entitic vol] 8.3 fL Low 9.4-12.4 [facility] Platelets (Bld) [#/Vol] 303 10*3/uL Normal 120-400 [facility] RBC (Bld) [#/Vol] 5.56 10*6/uL High 4.00-5.20 [facility] WBC (Bld) [#/Vol] 12.40 10*3/uL High 4.80-10.80 [facility] COMPREHENSIVE METABOLIC PANE Tariq 03-24-2024 Albumin [Mass/Vol] 4.2 g/dL Normal 3.5-5.0 [place] Comment on above: Order Comment: [facility] has implemented the eGFR calculation approach that does not have a coefficient for race that conforms to the NKF-ASN Task Force Recommendations. ALP [Catalytic activity/Vol] 96 U/L Normal 38-126 [facility] Comment on above: Order Comment: [facility] has implemented the eGFR calculation approach that does not have a coefficient for race that conforms to the NKF-ASN Task Force Recommendations. ALT [Catalytic activity/Vol] 19 U/L Normal 0-35 U/L [facility] Comment on above: Order Comment: [facility] has implemented the eGFR calculation approach that does not have a coefficient for race that conforms to the NKF-ASN Task Force Recommendations. Anion gap [Moles/Vol] 17 mmol/L Normal 10-20 [facility] Comment on above: Order Comment: [facility] has implemented the eGFR calculation approach that does not have a coefficient for race that conforms to the NKF-ASN Task Force Recommendations. AST [Catalytic activity/Vol] 24 U/L Normal 0-35 U/L [facility] Comment on above: Order Comment: [facility] has implemented the eGFR calculation approach that does not have a coefficient for race that conforms to the NKF-ASN Task Force Recommendations. Bilirubin [Mass/Vol] 0.5 mg/dL Normal 0.3-1.2 [facility] Comment on above: Order Comment: [facility] has implemented the eGFR calculation approach that does not have a coefficient for race that conforms to the NKF-ASN Task Force Recommendations. Calcium [Mass/Vol] 9.6 mg/dL Normal 8.4-10.2 [place] Comment on above: Order Comment: [facility] [facility] has implemented the eGFR calculation approach that does not have a coefficient for race that conforms to the NKF-ASN Task Force Recommendations. Chloride [Moles/Vol] 105 mmol/L Normal 98-107 [facility] Comment on above: Order Comment: [facility] has implemented the eGFR calculation approach that does not have a coefficient for race that conforms to the NKF-ASN Task Force Recommendations. Creatinine [Mass/Vol] 0.68 mg/dL Normal 0.40-1.10 [facility] Comment on above: Order Comment: [facility] has implemented the eGFR calculation approach that does not have a coefficient for race that conforms to the NKF-ASN Task Force Recommendations. EGFR 110 mL/min/1.73 m2 Normal >=60 [place] Comment on above: Order Comment: [facility] has implemented the eGFR calculation approach that does not have a coefficient for race that conforms to the NKF-ASN Task Force Recommendations. Result Comment: Rosario mated GFR was calculated using the 2020 CKD-EPI creatinine equation. Glucose [Mass/Vol] 145 mg/dL High 70-126 [place] Comment on above: Order Comment: [facility] has implemented the eGFR calculation approach that does not have a coefficient for race that conforms to the NKF-ASN Task Force Recommendations. HCO3 (Bld) [Moles/Vol] 20 mmol/L Low 22-31 [facility] Comment on above: Order Comment: [facility] has implemented the eGFR calculation approach that does not have a coefficient for race that conforms to the NKF-ASN Task Force Recommendations. Potassium [Moles/Vol] 3.5 mmol/L Normal 3.5-5.1 [facility] Comment on above: Order Comment: [facility] has implemented the eGFR calculation approach that does not have a coefficient for race that conforms to the NKF-ASN Task Force Recommendations. Protein [Mass/Vol] 9.0 g/dL High 6.4-8.3 [place] Comment on above: Order Comment: [facility] has implemented the eGFR calculation approach that does not have a coefficient for race that conforms to the NKF-ASN Task Force Recommendations. Sodium [Moles/Vol] 138 mmol/L Normal 136-145 [place] Comment on above: Order Comment: [facility] has implemented the eGFR calculation approach that does not have a coefficient for race that conforms to the NKF-ASN Task Force Recommendations. Urea nitrogen [Mass/Vol] 13 mg/dL Normal 7-22 [facility] Comment on above: Order Comment: [facility] has implemented the eGFR calculation approach that does not have a coefficient for race that conforms to the NKF-ASN Task Force Recommendations. Urea nitrogen/Creatinine [Mass ratio] 19.1 mg/mg Normal 10.0-20.0 [facility] Comment on above: Order Comment: [facility] has [...] FriMar 24, 2024 6:40:46 PM EST Normal [facility] Comment on above: Order Comment: Injur y/Trauma or Illness?:Illness/OtherHow long have you had these symptoms (acute/chronic)?:AcuteReason for exam?:AMSType of Exam?:InitialAdditional signs and symptoms?:AMS CT Head WO contraston 2023 IMPRESSION: No acute large vessel infarct, acute intracranial hemorrhage, or intracranial mass lesion. Electronically signed by: Rubén Yost MD 03/24/2024 06:40 PM EST RP [place] EXAMINATION: CT HEAD, without contrast CLINICAL INFORMATION: [...] and middle ear cavities are well aerated. [facility] Rubén Yost MD - 03/24/2024 [...] by: Rubén Yost MD 03/24/2024 06:40 PM [facility] Radiology Study observation (narrative) [facility] CT Head WO contrastOrdered B y: Rubén Yost on 03-24-2024 [facility] Work Phone: Comprehensive metabolic 2000 panelon 03-24-2024 Albumin [Mass/Vol] 4.2 g/dL 3.5 - 5.0 g/dL [facility] ALP [Catalytic activity/Vol] 96 U/L 38 - 126 U/L [facility] ALT [Catalytic activity/Vol] 19 U/L 0-35 U/L [facility] Anion gap [Moles/Vol] 17 mmol/L 10 - 20 mmol/L [facility] AST [Catalytic activity/Vol] 24 U/L 0-35 U/L [facility] Bilirubin [Mass/Vol] 0.5 mg/dL 0.3 - 1 .2 mg/dL [facility] Calcium [Mass/Vol] 9.6 mg/dL 8.4 - 10. 2 mg/dL [facility] Chloride [Moles/Vol] 105 mmol/L 98 - 10 7 mmol/L [facility] Creatinine [Mass/Vol] 0.68 mg/dL 0.40 - 1.10 mg/dL [facility] GFR/1.73 sq M.predicted CKD-EPI (S/P/Bld) [Vol rate/Area] 110 - PINF [facility] Comment on above: Estimated GFR was ca lculated using the 2020 CKD-EPI creatinine equation. Glucose [Mass/Vol] 145 mg/dL High 70 - 126 mg/dL [facility] HCO3 [Moles/Vol] 20 mmol/L Low 22 - 31 mmol/L [facility] Interpretation and review of laboratory results Abnormal [facility] Potassium [Moles/Vol] 3.5 mmol/L 3.5 - 5.1 mmol/L [facility] Protein [Mass/Vol] 9 g/dL High 6.4 - 8.3 g/dL [facility] Sodium [Moles/Vol] 138 mmol/L 136 - 145 mmol/L [facility] Urea nitrogen [Mass/Vol] 13 mg/dL 7 - 22 mg/dL [facility] Urea nitrogen/Creatinine [Mass ratio] 19.1 mg/mg 10.0 - 20.0 [facility] has implemented the eGFR calculation approach that does not have a coefficient for race that conforms to the NKF-ASN Task Force Recommendations. [facility] Critical Careon 03-24-2024 Hiwot Hoover CNP 03/24/2024 [...] of old charts and vascular access procedures. [facility] DRUGS OF ABUSE SCREEN, URINE on 03-24-2024 AMPHETAMINE SCREEN, URINE Negative Normal Negative [facility] Comment on above: Order Comment: Scree n results should be used for treatment purposes only. Result Comment: Urin e Amphetamines Cutoff: <500 ng/mL = None Detected. BARBITURATE SCREEN URINE Negative Normal Negative [facility] Comment on above: Order Comment: Scree n results should be used for treatment purposes only. Result Comment: Urin e Barbiturates Cutoff: <200 ng/mL = None Detected. BENZODIAZEPINE SCREEN, URINE Negative Normal Negative [facility] Comment on above: Order Comment: Scree n results should be used for treatment purposes only. Result Comment: Urin e Benzodiazepines Cutoff: <200 ng/mL = None Detected. CANNABINOID SCREEN URINE Negative Normal Negative [facility] Comment on above: Order Comment: Scree n results should be used for treatment purposes only. Result Comment: Urin e Cannabinoids cutoff: <50 ng/mL = None Detected. COCAINE, SCREEN URINE Negative Normal Negative [facility] Comment on above: Order Comment: Scree n results should be used for treatment purposes only. Result Comment: Urin e Cocaine Cutoff: 150 ng/mL = None Detected. METHADONE SCREEN, URINE Negative Normal Negative [facility] Comment on above: Order Comment: Scree n results should be used for treatment purposes only. Result Comment: Urin e Methadone Cutoff: <100 ng/mL = None Deteced. METHAMPHETAMINE SCREEN Negative Normal Negative [facility] Comment on above: Order Comment: Scree n results should be used for treatment purposes only. Result Comment: Urin e Methamphetamines Cutoff: <500 ng/mL = None Detected. OPIATE SCREEN URINE Negative Normal Negative [facility] Comment on above: Order Comment: Scree n results should be used for treatment purposes only. Result Comment: Urin e Opiates Cutoff: 300 ng/mL = None Detected. TRICYCLICS SCREEN Negative Normal Negative [facility] Comment on above: Order Comment: Scree n results should be used for treatment purposes only. Result Comment: Urin e Tricyclic Antidepressants Cutoff: <1000 ng/mL = None Detected. ED Prov Noteon 03-24-2024 ED [facility] MED SURG ATTENDING NOTE: NAME: Lisa Chaudhry CSN: [id number] 43 y.o. PCP: Brandi, Physician History: Chief Complaint: Withdrawal and Altered Mental Status HPI: The history was obtained from the patient. Lisa is a 43 y.o. female who presents with a chief complaint of Withdrawal and Altered Mental Status. Past medical history of drug abuse. 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 Patient was being seen there [...] 189/89. Afebrile. Nontachycardic. 98% on room air. Hgwpl-hs-aajd glucose was checked 133. Patient is in [...] Resource Strain: Low Risk (06/17/2023) Received from [facility] Overall Financial Resource Strain (CARDIA) Difficulty of Paying Living Expenses: Not very hard Food Insecurity: Food Insecurity Present (06/17/2023) Received from [facility] Hunger Vital Sign Worried About Running Out of Food in the Last Year: Sometimes true Ran Out of Food in the Last Year: Sometimes true Transportation Needs: No Transportation Needs (06/17/2023) Received from [facility] PRAPARE - Transportation Lack of Transportation (Medical): No Lack of Transportation (Non-Medical): No Housing Stability: Unknown (06/17/2023) Received from [facility] Housing Stability Vital Sign Unable [...] (!) 1 (more content not included)... Normal [facility] EKGon 03-24-2024 [facility] ETOH (Medical Alcohol)on Ethanol [Mass/Vol] mg/dL NINF - 10 .0 mg/dL [facility] Comment on above: Alcohol cutoff: <10. 00 mg/dL = None Detected Ethanol [Mass/Vol]on 024 Interpretation and review of laboratory results Normal [facility] Gas panel (BldV)on CO2 (BldV) [Partial pressure] 34.4 mm[Hg] Low [facility] Inhaled oxygen concentration 21 %/L [facility] Interpretation and review of laboratory results Abnormal [facility] Oxygen (BldV) [Partial pressure] 54 mm[Hg] High [facility] Oxygen saturation in Venous blood 87 % High 40.0 - 70.0 % [facility] pH (BldV) 7.41 [pH] 7.31 - 7.41 [facility] Glucose (Bld) [Mass/Vol]on 1 05-25-2023 Glucose [Mass/Vol] 133 mg/dL High 65 - 99 mg/dL [facility] Interpretation and review of laboratory results Abnormal [facility] Gold Topon 03-24-2024 Extra Tube Hold for add-ons. [facility] Comment on above: Auto resulted. [facility] Extra Tube Hold for add-ons. [facility] Comment on above: Auto resulted. [facility] H AND Maxx 03-24-2024 H AND P [...] Patient P (more content not included)... Normal [facility] HCG, SERUM, QUALITATIVEon BETA-HCG QUAL BLOOD Negative Normal Negative [facility] HEMOGLOBIN A1Con 03-24-2024 Glucose [Mass/Vol] 117 mg/dL High 74-114 [place] Comment on above: Order Comment: Vidya l: 4.2% - 5.6% Increased risk for diabetes: 5.7% - 6.4% Diabetes: >= 6.5% Pediatrics: No established reference range Estimated average glucose: 74-114 mg/dL Performed By: #### [id number] #### [facility] [address] [address] Sai Lara M.D. [id number] HbA1c (Bld) [Mass fraction] 5.7 % High 4.2-5.6 [facility] Comment on above: Order Comment: Vidya l: 4.2% - 5.6% Increased risk for diabetes: 5.7% - 6.4% Diabetes: >= 6.5% Pediatrics: No established reference range Estimated average glucose: 74-114 mg/dL Performed By: #### [id number] #### [facility] [address] [place] [address] Sai Lara M.D. [id number] LACTIC ACID, PLASMAon 2023 LACTIC ACID, PLASMA 1.9 mmol/L Normal 0.5-2.2 [facility] LIPASEon 03-24-2024 Lipase [Catalytic activity/Vol] 29 U/L Normal 22-51 [facility] Lactate [Moles/Vol]on 2023 Interpretation and review of laboratory results Normal [facility] Lactic Acidon 03-24-2024 Lactate [Moles/Vol] 1.9 mmol/L 0.5 - 2. 2 mmol/L [facility] Lipaseon 03-24-2024 Lipase [Catalytic activity/Vol] 29 U/L 22 - 51 U/L [facility] Lipase [Catalytic activity/V ol]on 03-24-2024 Interpretation and review of laboratory results Normal [facility] Natriuretic peptide B [Mass/ Vol]Ordered By: Geraldine Jenkins on 03-24-2024 Interpretation and review of laboratory results Abnormal [facility] Natriuretic peptide B (Bld) [Mass/Vol] 123 pg/mL High 15 - 100 pg/mL [facility] No Panel Informationon 03-24 Extra Tube Hold for add-ons. [facility] Comment on above: Auto resulted. [facility] POC GLUCOSE - RALSon 024 Glucose [Mass/Vol] 133 mg/dL High 65-99 [place] T4, FREEon 03-24-2024 Free T4 [Mass/Vol] 1.3 ng/dL Normal 0.7-1.7 [place] Comment on above: Performed By: #### [id number] ####[facility] [address] [place] [address] Sai Lara M.D. [id number] TROPONINon 03-24-2024 BASELINE TROPONIN I NG/L 4 ng/L Normal <=59 [facility] TROPONIN I INTERPRETATION Normal Normal [facility] TSH DL <= 0.005 mIU/L Qnon 1 05-25-2023 Interpretation and review of laboratory results Abnormal [facility] TSH Qn 0.12 m[IU]/L Low [facility] TSH WITH REFLEX FREE T4on TSH Qn 0.12 m[IU]/L Low 0.27-4.20 [facility] Troponinon 03-24-2024 Troponin I 4 ng/L NINF - 59 ng/L [facility] Troponin I Interpretation Normal [facility] URINALYSISon 03-24-2024 BACTERIA, URINE Many Abnormal None Seen [facility] Comment on above: Order Comment: [facility] has implemented the eGFR calculation approach that does not have a coefficient for race that conforms to the NKF-ASN Task Force Recommendations. BILIRUBIN, URINE Negative Normal Negative [facility] Comment on above: Order Comment: [facility] has implemented the eGFR calculation approach that does not have a coefficient for race that conforms to the NKF-ASN Task Force Recommendations. BLOOD, URINE Small Abnormal Negative [facility] Comment on above: Order Comment: [facility] has implemented the eGFR calculation approach that does not have a coefficient for race that conforms to the NKF-ASN Task Force Recommendations. Clarity (U) Cloudy Abnormal Clear [facility] Comment on above: Order Comment: [facility] has implemented the eGFR calculation approach that does not have a coefficient for race that conforms to the NKF-ASN Task Force Recommendations. Color (U) Yellow Normal Colorless, Yellow [facility] Comment on above: Order Comment: [facility] has implemented the eGFR calculation approach that does not have a coefficient for race that conforms to the NKF-ASN Task Force Recommendations. Glucose Ql (U) Negative Normal Negative, >=1000 [facility] Comment on above: Order Comment: [facility] has implemented the eGFR calculation approach that does not have a coefficient for race that conforms to the NKF-ASN Task Force Recommendations. Ketones Ql (U) >=80 Abnormal Negative [facility] Comment on above: Order Comment: [facility] has implemented the eGFR calculation approach that does not have a coefficient for race that conforms to the NKF-ASN Task Force Recommendations. Leukocyte esterase Test strip Ql (U) Negative Normal Negative [facility] Comment on above: Order Comment: [facility] has implemented the eGFR calculation approach that does not have a coefficient for race that conforms to the NKF-ASN Task Force Recommendations. MUCUS, URINE Many Abnormal None Seen, Rare [facility] Comment on above: Order Comment: [facility] has implemented the eGFR calculation approach that does not have a coefficient for race that conforms to the NKF-ASN Task Force Recommendations. NITRITE, URINE Negative Normal Negative [facility] Comment on above: Order Comment: [facility] has implemented the eGFR calculation approach that does not have a coefficient for race that conforms to the NKF-ASN Task Force Recommendations. pH (U) 8.0 [pH] High 5.0-7.0 [facility] Comment on above: Order Comment: [facility] has implemented the eGFR calculation approach that does not have a coefficient for race that conforms to the NKF-ASN Task Force Recommendations. PROTEIN, URINE Negative Normal Negative [facility] Comment on above: Order Comment: [facility] has implemented the eGFR calculation approach that does not have a coefficient for race that conforms to the NKF-ASN Task Force Recommendations. Specific gravity (U) [Rel density] 1.020 Normal 1.005-1.025 [facility] Comment on above: Order Comment: [facility] has implemented the eGFR calculation approach that does not have a coefficient for race that conforms to the NKF-ASN Task Force Recommendations. SQUAMOUS EPITHELIAL 3 /hpf Normal 0-4 [facility] Comment on above: Order Comment: [facility] has implemented the eGFR calculation approach that does not have a coefficient for race that conforms to the NKF-ASN Task Force Recommendations. UROBILINOGEN, URINE <2.0 Normal <2.0 [facility] Comment on above: Order Comment: [facility] has implemented the eGFR calculation approach that does not have a coefficient for race that conforms to the NKF-ASN Task Force Recommendations. WBC LM.HPF (Urine sed) [#/Area] 23 /[HPF] High 0-5 [facility] Comment on above: Order Comment: [facility] has [...] Extended Susc Islt S Negative F Abnormal [facility] Comment on above: Performed By: #### [id number] #### [facility] [address] [place] [address] Sai Lara M.D. [id number] Urinalysison 03-24-2024 Bacteria Auto Ql (U) Many Abnormal None Se en /hpf [facility] Bilirubin Ql (U) Negative Negative [facility] Clarity Refractometry automated (U) Cloudy Abnormal Clear [facility] Color (U) Yellow [facility]less, [facility] Epithelial cells.squamous Auto (Urine sed) [#/Area] 3 [facility] Glucose Auto test strip (U) [Mass/Vol] Negative Negative, >=1000 mg/dL [facility] Hemoglobin Auto test strip Ql (U) Small Abnormal Negative [facility] Interpretation and review of laboratory results Abnormal [facility] Ketones (U) [Mass/Vol] mg/dL Abnormal Negative mg/dL [facility] Leukocyte esterase Auto test strip Ql (U) Negative Negative [facility] Mucus Auto (Urine sed) [#/Area] Many Abnormal None Seen, Rare /lpf [facility] Nitrite Auto test strip Ql (U) Negative Negative [facility] pH (U) 8 [pH] High 5.0 - 7.0 [facility] Protein (U) [Mass/Vol] Negative Negative mg/dL [facility] Specific gravity (U) [Rel density] 1.02 1.005 - 1.025 [facility] Urobilinogen (U) [Mass/Vol] mg/dL NINF - 2.0 mg/dL [facility] WBC Auto (Urine sed) [#/Area] 23 High [facility] Microscopic examinat ion is performed on all urinalysis samples and only positive findings are reported. The test for blood on the chemical analytic portion of urinalysis may also be positive due to hemoglobinuria and myoglobinuria and if red blood cells are present they are quantified by microscopic examination. [facility] Urine Drug ScreenOrdered By: Laury Nixon on 03-24-2024 Amphetamines Ql (U) Negative Negative [facility] Comment on above: Urine Amphetamines C utoff: <500 ng/mL = None Detected. Barbiturates Screen Ql (U) Negative Negative [facility] Comment on above: Urine Barbiturates C utoff: <200 ng/mL = None Detected. Benzodiazepines Ql (U) Negative Negative [facility] Comment on above: Urine Benzodiazepine s Cutoff: <200 ng/mL = None Detected. Cannabinoids Screen Ql (U) Negative Negative [facility] Comment on above: Urine Cannabinoids c utoff: <50 ng/mL = None Detected. Cocaine Ql (U) Negative Negative [facility] Comment on above: Urine Cocaine Cutoff : 150 ng/mL = None Detected. Interpretation and review of laboratory results Normal [facility] Methadone Screen Ql (U) Negative Negative [facility] Comment on above: Urine Methadone Cuto ff: <100 ng/mL = None Deteced. Methamphetamine (U) [Mass/Vol] Negative Negative [facility] Comment on above: Urine Methamphetamin es Cutoff: <500 ng/mL = None Detected. Opiates Screen Ql (U) Negative Negative [facility] Comment on above: Urine Opiates Cutoff : 300 ng/mL = None Detected. Tricyclic antidepressants [Mass/Vol] Negative Negative [facility] Comment on above: Urine Tricyclic Anti depressants Cutoff: <1000 ng/mL = None Detected. Screen results shoul d be used for treatment purposes only. [facility] XR CHEST PA/APon 03-24-2024 XR CHEST PA/AP [...] provider or the ordering physician. Workstation ID: [id number] Dictated by: BRIGHT TAPIA on FriMar 24, 2024 4:03:22 PM EST Transcribed by: BRIGHT TAPIA on FriMar 24, 2024 4:03:22 PM EST Finalized by: BRIGHT TAPIA on FriMar 24, 2024 4:03:22 PM EST Normal [facility] Comment on above: Order Comment: [...] provider or the ordering physician. Workstation ID: [id number] Parso EXAMINATION: Exam: XR CHEST PA/AP Exam Date: [...] provider or the ordering physician. Workstation ID: [id number] [facility] Radiology Study observation (narrative) [facility] XR Chest PA and Abdomen APOr dered By: Bright Tapia on 03-24-2024 [facility] Work Phone: Emergency Department Summary on 12-28-2023 Emergency Department Summary [facility] Medical Records Department [address] [place] [address] Emergency Department Summary 12/28/23 MR#: [id number] Acct: [id number] Name: LISA CHAUDHRY Rep #: [id number] : 1980 43 From: Mich Breaux MD [...] reported subjective fever, and redness to the [facility] of her right thigh. [facility] Medical History Anxiety Substance abuse Depression [...] with her primary (more content not included)... [facility] 36on 10-29-2023 36 Unable to get a hold of pt after several attempts. Certified letter sent out 10/29/23 [facility] 36 Called pt to [place]. Unable to leave [facility] d/t voice mailbox not being set up. Normal [facility] 10-28-2023 36 Tried calling caten t 10/28/23. To schedule a repeat pap. No answer, No voicemail. Normal [facility] 09-25-2023 36 Mychart mssg sent to schedule appt [facility] 09-24-2023 36 Pt due for repeat pa p ho leep. Please call and help schedule Normal [facility] Basic metabolic 2000 06-19-2023 Anion gap [Moles/Vol] 8 mmol/L Low 9-18 [facility] Comment on above: Order Comment: Speci men Type: URINE SPECIMEN Ordering Facility: [facility] Address: [address] [place] [address] Performed By: #### 2 106-3 #### [facility] CLIA [id number] [address] [facility] Order Comment: Speci men Type: BLOOD SPECIMEN Ordering Facility: [facility] Address: [address] [place] [address] Performed By: #### 4 537-7 #### [facility] CLIA [id number] [address] [place] [address] [place] Calcium [Mass/Vol] 8.8 mg/dL Normal 8.5-10.2 [facility] Comment on above: Order Comment: Speci men Type: URINE SPECIMEN Ordering Facility: [facility] Address: [address] [place] [address] Performed By: #### 2 106-3 #### [facility] CLIA [id number] [address] [facility] Order Comment: Speci men Type: BLOOD SPECIMEN Ordering Facility: [facility] Address: [address] [place] [address] Performed By: #### 4 537-7 #### [facility] CLIA [id number] [address] [place] [address] [place] Chloride [Moles/Vol] 106 mmol/L High 97-105 [facility] Comment on above: Order Comment: Speci men Type: URINE SPECIMEN Ordering Facility: [facility] Address: [address] [place] [address] Performed By: #### 2 106-3 #### [facility] CLIA [id number] [address] Order Comment: Speci men Type: BLOOD SPECIMEN Ordering Facility: [facility] Address: [address] [place] [address] Performed By: #### 4 537-7 #### [facility] CLIA [id number] [address] [place] [address] [place] CO2 [Moles/Vol] 24 mmol/L Normal 22-30 [facility] Comment on above: Order Comment: Speci men Type: URINE SPECIMEN Ordering Facility: [facility] Address: [address] [place] [address] Performed By: #### 2 106-3 #### [facility] CLIA [id number] [address] Order Comment: Speci men Type: BLOOD SPECIMEN Ordering Facility: [facility] Address: [address] [place] [address] Performed By: #### 4 537-7 #### [facility] CLIA [id number] [address] [place] [address] [place] Creatinine [Mass/Vol] 0.54 mg/dL Low 0.58-0.96 [facility] Comment on above: Order Comment: Speci men Type: URINE SPECIMEN Ordering Facility: [facility] Address: [address] [place] [address] Performed By: #### 2 106-3 #### [facility] CLIA [id number] [address] Order Comment: Speci men Type: BLOOD SPECIMEN Ordering Facility: [facility] Address: [address] [place] [address] Performed By: #### 4 537-7 #### [facility] CLIA [id number] [address] STATES [facility] Creatinine and Glomerular filtration rate.predicted panel (S/P/Bld) 117 mL/min/1.73m??? Normal >=60 [facility] Comment on above: Order Comment: Macey marin Type: URINE SPECIMEN Ordering Facility: [facility] Address: [address] [place] [address] Result Comment: Rosario mated Glomerular Filtration Rate [...] GFR. Performed By: #### 2 106-3 #### [facility] CLIA [id number] [address] [place] [address] STATES [facility] Order Comment: Macey marin Type: BLOOD SPECIMEN Ordering Facility: [facility] Address: [address] [place] [address] Performed By: #### 4 537-7 #### [facility] CLIA [id number] [address] [place] [address] [place] Glucose [Mass/Vol] 96 mg/dL Normal 74-99 [facility] Comment on above: Order Comment: Macey marin Type: URINE SPECIMEN Ordering Facility: [facility] Address: [address] [place] [address] Result Comment: The [place] Diabetes Association (ADA) provides guidance for cutoff [...] Standards of Medical Care in Diabetes 2016, [place] Diabetes Association. Diabetes Care. 2016.39(Suppl 1). Performed By: #### 2 106-3 #### [facility] CLIA [id number] [address] Order Comment: Speci men Type: BLOOD SPECIMEN Ordering Facility: [facility] Address: [address] [place] [address] Performed By: #### 4 537-7 #### [facility] CLIA [id number] [address] [place] [address] [place] Potassium [Moles/Vol] 4.0 mmol/L Normal 3.7-5.1 [facility] Comment on above: Order Comment: Speci men Type: URINE SPECIMEN Ordering Facility: [facility] Address: [address] [place] [address] Performed By: #### 2 106-3 #### [facility] CLIA [id number] [address] Order Comment: Speci men Type: BLOOD SPECIMEN Ordering Facility: [facility] Address: [address] [place] [address] Performed By: #### 4 537-7 #### [facility] CLIA [id number] [address] [place] [address] [place] Sodium [Moles/Vol] 138 mmol/L Normal 136-144 [facility] Comment on above: Order Comment: Speci men Type: URINE SPECIMEN Ordering Facility: [facility] Address: [address] [place] [address] Performed By: #### 2 106-3 #### [facility] CLIA [id number] [address] Order Comment: Speci men Type: BLOOD SPECIMEN Ordering Facility: [facility] Address: [address] [place] [address] Performed By: #### 4 537-7 #### [facility] CLIA [id number] [address] [place] [address] [place] Urea nitrogen [Mass/Vol] 6 mg/dL Low 7-21 [facility] Comment on above: Order Comment: Speci men Type: URINE SPECIMEN Ordering Facility: [facility] Address: [address] [place] [address] Performed By: #### 2 106-3 #### [facility] CLIA [id number] [address] Order Comment: Speci men Type: BLOOD SPECIMEN Ordering Facility: [facility] Address: [address] [place] [address] Performed By: #### 4 537-7 #### [facility] CLIA [id number] [address] [place] [address] [place] CBC panel Auto (Bld)on Erythrocyte distribution width (RBC) [Ratio] 13.0 % Normal 11.5-15.0 [facility] Comment on above: Order Comment: Speci men Type: URINE SPECIMEN Ordering Facility: [facility] Address: [address] [place] [address] Performed By: #### 2 106-3 #### [facility] CLIA [id number] [address] Order Comment: Speci men Type: BLOOD SPECIMEN Ordering Facility: [facility] Address: [address] [place] [address] Performed By: #### 4 537-7 #### [facility] CLIA [id number] [address] [place] [address] [place] Hematocrit (Bld) [Volume fraction] 38.6 % Normal 36.0-46.0 [facility] Comment on above: Order Comment: Speci men Type: URINE SPECIMEN Ordering Facility: [facility] Address: [address] [place] [address] Performed By: #### 2 106-3 #### [facility] CLIA [id number] [address] Order Comment: Speci men Type: BLOOD SPECIMEN Ordering Facility: [facility] Address: [address] [place] [address] Performed By: #### 4 537-7 #### [facility] CLIA [id number] [address] [place] [address] [place] Hemoglobin (Bld) [Mass/Vol] 13.2 g/dL Normal 11.5-15.5 [facility] Comment on above: Order Comment: Speci men Type: URINE SPECIMEN Ordering Facility: [facility] Address: [address] [place] [address] Performed By: #### 2 106-3 #### [facility] CLIA [id number] [address] [facility] Order Comment: Speci men Type: BLOOD SPECIMEN Ordering Facility: [facility] Address: [address] [place] [address] Performed By: #### 4 537-7 #### [facility] CLIA [id number] [address] [place] [address] [place] MCH (RBC) [Entitic mass] 32.5 pg Normal 26.0-34.0 [facility] Comment on above: Order Comment: Speci men Type: URINE SPECIMEN Ordering Facility: [facility] Address: [address] [place] [address] Performed By: #### 2 106-3 #### [facility] CLIA [id number] [address] Order Comment: Speci men Type: BLOOD SPECIMEN Ordering Facility: [facility] Address: [address] [place] [address] Performed By: #### 4 537-7 #### [facility] CLIA [id number] [address] [place] [address] [place] MCHC (RBC) [Mass/Vol] 34.2 g/dL Normal 30.5-36.0 [facility] Comment on above: Order Comment: Speci men Type: URINE SPECIMEN Ordering Facility: [facility] Address: [address] [place] [address] Performed By: #### 2 106-3 #### [facility] CLIA [id number] [address] Order Comment: Speci men Type: BLOOD SPECIMEN Ordering Facility: [facility] Address: [address] [place] [address] Performed By: #### 4 537-7 #### [facility] CLIA [id number] [address] [place] [address] [place] MCV (RBC) [Entitic vol] 95.1 fL Normal 80.0-100.0 [facility] Comment on above: Order Comment: Speci men Type: URINE SPECIMEN Ordering Facility: [facility] Address: [address] [place] [address] Performed By: #### 2 106-3 #### [facility] CLIA [id number] [address] Order Comment: Speci men Type: BLOOD SPECIMEN Ordering Facility: [facility] Address: [address] [place] [address] Performed By: #### 4 537-7 #### [facility] CLIA [id number] [address] [place] [address] [place] Nucleated RBC (Bld) [#/Vol] 10*3/uL Normal <0.01 [facility] Comment on above: Order Comment: Speci men Type: URINE SPECIMEN Ordering Facility: [facility] Address: [address] [place] [address] Performed By: #### 2 106-3 #### [facility] CLIA [id number] [address] Order Comment: Speci men Type: BLOOD SPECIMEN Ordering Facility: [facility] Address: [address] [place] [address] Performed By: #### 4 537-7 #### [facility] CLIA [id number] [address] [place] [address] [place] Platelet mean volume (Bld) [Entitic vol] 11.3 fL Normal 9.0-12.7 [facility] Comment on above: Order Comment: Speci men Type: URINE SPECIMEN Ordering Facility: [facility] Address: [address] [place] [address] Performed By: #### 2 106-3 #### [facility] CLIA [id number] [address] Order Comment: Speci men Type: BLOOD SPECIMEN Ordering Facility: [facility] Address: [address] [place] [address] Performed By: #### 4 537-7 #### [facility] CLIA [id number] [address] [place] [address] [place] Platelets (Bld) [#/Vol] 196 10*3/uL Normal 150-400 [facility] Comment on above: Order Comment: Speci men Type: URINE SPECIMEN Ordering Facility: [facility] Address: [address] [place] [address] Performed By: #### 2 106-3 #### [facility] CLIA [id number] [address] Order Comment: Speci men Type: BLOOD SPECIMEN Ordering Facility: [facility] Address: [address] [place] [address] Performed By: #### 4 537-7 #### [facility] CLIA [id number] [address] [place] [address] RBC (Bld) [#/Vol] 4.06 10*6/uL Normal 3.90-5.20 [facility] Comment on above: Order Comment: Speci men Type: URINE SPECIMEN Ordering Facility: [facility] Address: [address] [place] [address] Performed By: #### 2 106-3 #### [facility] CLIA [id number] [address] Order Comment: Speci men Type: BLOOD SPECIMEN Ordering Facility: [facility] Address: [address] [place] [address] Performed By: #### 4 537-7 #### [facility] CLIA [id number] [address] [place], [place] [address] [address] [place] WBC (Bld) [#/Vol] 10.00 10*3/uL Normal 3.70-11.00 [facility] Comment on above: Order Comment: Speci men Type: URINE SPECIMEN Ordering Facility: [facility] Address: [address] [place] [address] Performed By: #### 2 106-3 #### [facility] CLIA [id number] [address] [place] [address] [place] Order Comment: Speci men Type: BLOOD SPECIMEN Ordering Facility: [facility] Address: [address] [place] [address] Performed By: #### 4 537-7 #### [facility] CLIA [id number] [address] [place] [address] [place] CNDSon 06-19-2023 CNDS HNO ID: [id number] Author: AMAYA VÁZQUEZ PA-C Service: Hospital Medicine Author Type: Physician Tree Feller Operator Type: Discharge Summary Filed: 06/19/2023 10:21 [...] Provider: Mitchell Hannon MD Primary Service: 3, [facility] Physician Tree Feller Operator: Amaya Vázquez PA-C MY CONDITION AT [...] declined. Ac (more content not included)... Normal [facility] Basic metabolic 2000 panelon 06-18-2023 Anion gap [Moles/Vol] 10 mmol/L Normal - [facility] Comment on above: Order Comment: Macey marin Type: URINE SPECIMEN Ordering Facility: [facility] Address: [address] [place] [address] Performed By: #### 2 106-3 #### [facility] CLIA [id number] [address] [place] [address] [place] Order Comment: Speci men Type: BLOOD SPECIMEN Ordering Facility: [facility] Address: [address] [place] [address] Performed By: #### 4 537-7 #### [facility] CLIA [id number] [address] [place] [address] [place] Calcium [Mass/Vol] 8.5 mg/dL Normal 8.5-10.2 [facility] Comment on above: Order Comment: Speci men Type: URINE SPECIMEN Ordering Facility: [facility] Address: [address] [place] [address] Performed By: #### 2 106-3 #### [facility] CLIA [id number] [address] Order Comment: Speci men Type: BLOOD SPECIMEN Ordering Facility: [facility] Address: [address] [place] [address] Performed By: #### 4 537-7 #### [facility] CLIA [id number] [address] [place] [address] [place] Chloride [Moles/Vol] 103 mmol/L Normal 97-105 [facility] Comment on above: Order Comment: Speci men Type: URINE SPECIMEN Ordering Facility: [facility] Address: [address] [place] [address] Performed By: #### 2 106-3 #### [facility] CLIA [id number] [address] Order Comment: Speci men Type: BLOOD SPECIMEN Ordering Facility: [facility] Address: [address] [place] [address] Performed By: #### 4 537-7 #### [facility] CLIA [id number] [address] [place] [address] [place] CO2 [Moles/Vol] 20 mmol/L Low 22-30 [facility] Comment on above: Order Comment: Speci men Type: URINE SPECIMEN Ordering Facility: [facility] Address: [address] [place] [address] Performed By: #### 2 106-3 #### [facility] CLIA [id number] [address] Order Comment: Speci men Type: BLOOD SPECIMEN Ordering Facility: [facility] Address: [address] [place] [address] Performed By: #### 4 537-7 #### [facility] CLIA [id number] [address] [place] [address] [place] Creatinine [Mass/Vol] 0.52 mg/dL Low 0.58-0.96 [facility] Comment on above: Order Comment: Speci men Type: URINE SPECIMEN Ordering Facility: [facility] Address: [address] [place] [address] Performed By: #### 2 106-3 #### [facility] CLIA [id number] [address] Order Comment: Speci men Type: BLOOD SPECIMEN Ordering Facility: [facility] Address: [address] [place] [address] Performed By: #### 4 537-7 #### [facility] CLIA [id number] [address] [place] [address] Creatinine and Glomerular filtration rate.predicted panel (S/P/Bld) 118 mL/min/1.73m??? Normal >=60 [facility] Comment on above: Order Comment: Speci men Type: URINE SPECIMEN Ordering Facility: [facility] Address: [address] [place] [address] Result Comment: Rosario mated Glomerular Filtration Rate [...] #### 2 106-3 #### [facility] CLIA [id number] [address] Order Comment: Speci men Type: BLOOD SPECIMEN Ordering Facility: [facility] Address: [address] [place] [address] Performed By: #### 4 537-7 #### [facility] CLIA [id number] [address] [place] [address] [place] Glucose [Mass/Vol] 136 mg/dL High 74-99 [facility] Comment on above: Order Comment: Speci men Type: URINE SPECIMEN Ordering Facility: [facility] Address: [address] [place] [address] Result Comment: The [place] Diabetes Association (ADA) provides guidance for cutoff [...] Standards of Medical Care in Diabetes 2016, [place] Diabetes Association. Diabetes Care. 2016.39(Suppl 1). Performed By: #### 2 106-3 #### [facility] CLIA [id number] [address] Order Comment: Speci men Type: BLOOD SPECIMEN Ordering Facility: [facility] Address: [address] [place] [address] Performed By: #### 4 537-7 #### [facility] CLIA [id number] [address] [place] [address] [place] Potassium [Moles/Vol] 4.3 mmol/L Normal 3.7-5.1 [facility] Comment on above: Order Comment: Speci men Type: URINE SPECIMEN Ordering Facility: [facility] Address: [address] [place] [address] Performed By: #### 2 106-3 #### [facility] CLIA [id number] [address] Order Comment: Speci men Type: BLOOD SPECIMEN Ordering Facility: [facility] Address: [address] [place] [address] Performed By: #### 4 537-7 #### [facility] CLIA [id number] [address] [place] [address] Sodium [Moles/Vol] 133 mmol/L Low 136-144 [facility] Comment on above: Order Comment: Speci men Type: URINE SPECIMEN Ordering Facility: [facility] Address: [address] [place] [address] Performed By: #### 2 106-3 #### [facility] CLIA [id number] [address] Order Comment: Speci men Type: BLOOD SPECIMEN Ordering Facility: [facility] Address: [address] [place] [address] Performed By: #### 4 537-7 #### [facility] CLIA [id number] [address] [place] [address] Urea nitrogen [Mass/Vol] 5 mg/dL Low 7-21 [facility] Comment on above: Order Comment: Speci men Type: URINE SPECIMEN Ordering Facility: [facility] Address: [address] [place] [address] Performed By: #### 2 106-3 #### [facility] CLIA [id number] [address] Order Comment: Speci men Type: BLOOD SPECIMEN Ordering Facility: [facility] Address: [address] [place] [address] Performed By: #### 4 537-7 #### [facility] CLIA [id number] [address] [place] [address] [place] CASE MANAGEMon 06-18-2023 CASE MANAGEM HNO ID: [id number] Author: JASON BERGMAN LISW Service: ? Author Type: Animal Nursery Worker Type: Care Mgt Progress Note Filed: 06/18/2023 [...] with RN to advise. SIGNATURE: Jason Bergman NURSING UNIT MANAGER, MAINTENANCE LEADER PATIENT NAME: Lisa Chaudhry DATE: June 18, 2023 TIME: 10:05 AM PAGER/CONTACT #: [phone] [facility] CBC panel Auto (Bld)on 06-18 Erythrocyte distribution width (RBC) [Ratio] 13.3 % Normal 11.5-15.0 [facility] Comment on above: Order Comment: Speci men Type: URINE SPECIMEN Ordering Facility: [facility] Address: [address] [place] [address] Performed By: #### 2 106-3 #### [facility] CLIA [id number] [address] Order Comment: Speci men Type: BLOOD SPECIMEN Ordering Facility: [facility] Address: [address] [place] [address] Performed By: #### 4 537-7 #### [facility] CLIA [id number] [address] [place] [address] Hematocrit (Bld) [Volume fraction] 40.0 % Normal 36.0-46.0 [facility] Comment on above: Order Comment: Speci men Type: URINE SPECIMEN Ordering Facility: [facility] Address: [address] [place] [address] Performed By: #### 2 106-3 #### [facility] CLIA [id number] [address] Order Comment: Speci men Type: BLOOD SPECIMEN Ordering Facility: [facility] Address: [address] [place] [address] Performed By: #### 4 537-7 #### [facility] CLIA [id number] [address] [place] [address] [place] Hemoglobin (Bld) [Mass/Vol] 12.7 g/dL Normal 11.5-15.5 [facility] Comment on above: Order Comment: Speci men Type: URINE SPECIMEN Ordering Facility: [facility] Address: [address] [place] [address] Performed By: #### 2 106-3 #### [facility] CLIA [id number] [address] Order Comment: Speci men Type: BLOOD SPECIMEN Ordering Facility: [facility] Address: [address] [place] [address] Performed By: #### 4 537-7 #### [facility] CLIA [id number] [address] [place] [address] [place] MCH (RBC) [Entitic mass] 31.6 pg Normal 26.0-34.0 [facility] Comment on above: Order Comment: Speci men Type: URINE SPECIMEN Ordering Facility: [facility] Address: [address] [place] [address] Performed By: #### 2 106-3 #### [facility] CLIA [id number] [address] Order Comment: Speci men Type: BLOOD SPECIMEN Ordering Facility: [facility] Address: [address] [place] [address] Performed By: #### 4 537-7 #### [facility] CLIA [id number] [address] [place] [address] [place] MCHC (RBC) [Mass/Vol] 31.8 g/dL Normal 30.5-36.0 [facility] Comment on above: Order Comment: Speci men Type: URINE SPECIMEN Ordering Facility: [facility] Address: [address] [place] [address] Performed By: #### 2 106-3 #### [facility] CLIA [id number] [address] Order Comment: Speci men Type: BLOOD SPECIMEN Ordering Facility: [facility] Address: [address] [place] [address] Performed By: #### 4 537-7 #### [facility] CLIA [id number] [address] [place] [address] [place] MCV (RBC) [Entitic vol] 99.5 fL Normal 80.0-100.0 [facility] Comment on above: Order Comment: Speci men Type: URINE SPECIMEN Ordering Facility: [facility] Address: [address] [place] [address] Performed By: #### 2 106-3 #### [facility] CLIA [id number] [address] Order Comment: Speci men Type: BLOOD SPECIMEN Ordering Facility: [facility] Address: [address] [place] [address] Performed By: #### 4 537-7 #### [facility] CLIA [id number] [address] [place] [address] [place] Nucleated RBC (Bld) [#/Vol] 10*3/uL Normal <0.01 [facility] Comment on above: Order Comment: Speci men Type: URINE SPECIMEN Ordering Facility: [facility] Address: [address] [place] [address] Performed By: #### 2 106-3 #### [facility] CLIA [id number] [address] Order Comment: Speci men Type: BLOOD SPECIMEN Ordering Facility: [facility] Address: [address] [place] [address] Performed By: #### 4 537-7 #### [facility] CLIA [id number] [address] [place] [address] [place] Platelet mean volume (Bld) [Entitic vol] 11.5 fL Normal 9.0-12.7 [facility] Comment on above: Order Comment: Speci men Type: URINE SPECIMEN Ordering Facility: [facility] Address: [address] [place] [address] Performed By: #### 2 106-3 #### [facility] CLIA [id number] [address] Order Comment: Speci men Type: BLOOD SPECIMEN Ordering Facility: [facility] Address: [address] [place] [address] Performed By: #### 4 537-7 #### [facility] CLIA [id number] [address] [place] [address] [place] Platelets (Bld) [#/Vol] 152 10*3/uL Normal 150-400 [facility] Comment on above: Order Comment: Speci men Type: URINE SPECIMEN Ordering Facility: [facility] Address: [address] [place] [address] Result Comment: No c lot detected. Performed By: #### 2 106-3 #### [facility] CLIA [id number] [address] Order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 [address] Performed By: #### 2 4356-8 #### [facility] [place] [facility] CLIA [id number] [address] [place] [address] [place] Platelets (Bld) [#/Vol] 199 10*3/uL Normal 150-400 [facility] Comment on above: Order Comment: Speci men Type: URINE SPECIMEN [facility] Address: [address] [place] [address] Performed By: #### 2 4356-8 #### [facility] [place] [facility] CLIA [id number] [address] [place] [address] [place] RBC (Bld) [#/Vol] 3.96 10*6/uL Normal 3.90-5.20 [facility] Comment on above: Order Comment: Speci men Type: URINE SPECIMEN [facility] Address: [address] [place] [address] Performed By: #### 2 4356-8 #### [facility] [place] [facility] CLIA [id number] [address] [place] [address] [place] WBC (Bld) [#/Vol] 16.59 10*3/uL High 3.70-11.00 [facility] Comment on above: Order Comment: Speci men Type: URINE SPECIMEN [facility] Address: [address] [place] [address] Performed By: #### 2 4356-8 #### [facility] [place] [facility] CLIA [id number] [address] [place] [address] [place] Erythrocyte distribution width (RBC) [Ratio] 13.0 % Normal 11.5-15.0 [facility] Comment on above: Order Comment: Speci men Type: BLOOD SPECIMENOrdering Facility: [facility] Address: [address] [place] [address] Performed By: #### 5 8410-2, 40311-6 ####[facility] [place] [facility] [id number] [place] [address] [facility] [place] Hematocrit (Bld) [Volume fraction] 44.5 % Normal 36.0-46.0 [facility] Comment on above: Order Comment: Speci men Type: BLOOD SPECIMENOrdering Facility: [facility] Address: [address] [place] [address] Performed By: #### 5 8410-2, 00782-6 ####[facility] [place] [facility] [id number] [facility] [place] [address] [place] Hemoglobin (Bld) [Mass/Vol] 14.0 g/dL Normal 11.5-15.5 [facility] Comment on above: Order Comment: Speci men Type: BLOOD SPECIMENOrdering Facility: [facility] Address: [address] [place] [address] Performed By: #### 5 8410-2, 84525-0 ####[facility] [place] [facility] [id number] [place] [address] [place] MCH (RBC) [Entitic mass] 32.6 pg Normal 26.0-34.0 [facility] Comment on above: Order Comment: Speci men Type: BLOOD SPECIMENOrdering Facility: [facility] Address: [address] [place] [address] Performed By: #### 5 8410-2, 27912-2 ####[facility] [place] [facility] [id number] [place] [address] [place] [facility] MCHC (RBC) [Mass/Vol] 31.5 g/dL Normal 30.5-36.0 [facility] Comment on above: Order Comment: Speci men Type: BLOOD SPECIMENOrdering Facility: [facility] Address: [address] [place] [address] Performed By: #### 5 8410-2, 54924-7 ####[facility] [place] [facility] [id number] [place] [address] [place] MCV (RBC) [Entitic vol] 103.5 fL High 80.0-100.0 [facility] Comment on above: Order Comment: Speci men Type: BLOOD SPECIMENOrdering Facility: [facility] Address: [address] [place] [address] Performed By: #### 5 8410-2, 66711-3 ####[facility] [place] [facility] [id number] [place] [address] [facility] Platelet mean volume (Bld) [Entitic vol] 11.0 fL Normal 9.0-12.7 [facility] Comment on above: Order Comment: Speci men Type: BLOOD SPECIMENOrdering Facility: [facility] Address: [address] [place] [address] Performed By: #### 5 8410-2, 97220-9 ####[email or web address] [id number] [facility] [place] [address] [facility] Platelets (Bld) [#/Vol] 255 10*3/uL Normal 150-400 [facility] Comment on above: Order Comment: Speci men Type: BLOOD SPECIMENOrdering Facility: [facility] Address: [address] [place] [address] Performed By: #### 5 8410-2, 38692-1 ####[facility] LABCLIA [id number] [place] [address] [facility] RBC (Bld) [#/Vol] 4.30 10*6/uL Normal 3.90-5.20 [facility] Comment on above: Order Comment: Speci men Type: BLOOD SPECIMENOrdering Facility: [facility] Address: [address] [place] [address] Performed By: #### 5 8410-2, 68277-2 ####[facility] [place] [facility] [id number] [place] [address] [facility] WBC (Bld) [#/Vol] 22.81 10*3/uL High 3.70-11.00 [facility] Comment on above: Order Comment: Speci men Type: BLOOD SPECIMENOrdering Facility: [facility] Address: [address] [place] [address] Performed By: #### 5 8410-2, 99814-1 ####[facility] [place] [facility] [id number] [place] [address] [facility] Noreen 06-16-2023 CHANDUN Telephone (MEPRAD) KSIPLISA ([id number]) 1980 F Date Time Provider Department 06/16/23 CHUCKY SELF During your visit today, we recorded the following information about you: Chucky Self MD 06/16/2023 5:00 PM Signed A admission [place] [facility] to [facility] : This 43 yo female with known [...] in [place] troponin. Cardiology approved admission to [facility]. Allergies As of Date: 06/16/2023 (No Known Allergies) Date Reviewed: 06/16/2023 Reviewed by: Gian Macdonald MD - Fully Assessed Facility-Administered Medications as of 06/16/2023 - NaCl 0.9% iv infusion Problem List As Of Date: 06/16/2023 (None) Encounter Status:Closed by CHUCKY SELF on 06/16/23 Normal [facility] CT BRAIN WO IVCONon 06-16-19 CT BRAIN WO IVCON * * *Final Report* * * DATE OF EXAM: Jun 16 2023 9:44AM [facility] 0504 - CT BRAIN WO IVCON / [...] No CT evidence of acute intracranial abnormalities Offal Trimmer: [facility] Transcribe Date/Time: Jun 16 2023 9:50A Dictated by : KIM RODRIGUEZ MD This examination was interpreted and the report reviewed and electronically signed by: KIM RODRIGUEZ MD on Jun 16 2023 9:52AM EST [id number] Normal [facility] CT CERVICAL SPINE WO IVCONon 06-16-2023 CT CERVICAL SPINE WO IVCON * * *Final Report* * * DATE OF EXAM: Jun 16 2023 9:44AM [facility] 0505 - CT CERVICAL SPINE WO IVCON [...] Counting reference: Craniocervical junction. Anatomic Variants: None. [employer] (topogram) images: Unremarkable. Alignment: Mild levoscoliosis cervical [...] vertebrae with counting from the craniocervical junction. Offal Trimmer: [facility] Transcribe Date/Time: Jun 16 2023 9:54A Dictated by : KIM RODRIGUEZ MD This examination was interpreted and the report reviewed and electronically signed by: KIM RODRIGUEZ MD on Jun 16 2023 9:58AM EST [id number] Normal [facility] CT FACIAL BONE/GWENDOLYN WO IVCON on 06-16-2023 CT FACIAL BONE/GWENDOLYN WO IVCON * * *Final Report* * * DATE OF EXAM: Jun 16 2023 9:44AM [facility] 0507 - CT FACIAL BONE/GWENDOLYN WO IVCON [...] fracture. Small fluid level right maxillary sinus.. Offal Trimmer: [facility] Transcribe Date/Time: Jun 16 2023 9:58A Dictated by : KIM RODRIGUEZ MD This examination was interpreted and the report reviewed and electronically signed by: KIM RODRIGUEZ MD on Jun 16 2023 10:02AM EST [id number] Normal [facility] Comprehensive metabolic 2000 panelon 06-16-2023 Albumin [Mass/Vol] 4.5 g/dL Normal 3.9-4.9 [facility] Comment on above: Order Comment: Speci men Type: BLOOD SPECIMENOrdering Facility: [facility] Address: [address] [place] [address] Performed By: #### 2 4323-8, 0-3, ####[facility] [place] [facility] [id number] [place] [address] [place] ALP [Catalytic activity/Vol] 80 U/L Normal 34-123 [facility] Comment on above: Order Comment: Speci men Type: BLOOD SPECIMENOrdering Facility: [facility] Address: [address] [place] [address] Performed By: #### 2 4323-8, 3039-3, ####[facility] [place] [facility] [id number] [place] [address] [place] ALT With P-5'-P [Catalytic activity/Vol] 33 U/L Normal 7-38 [facility] Comment on above: Order Comment: Speci men Type: BLOOD SPECIMENOrdering Facility: [facility] Address: [address] [place] [address] Performed By: #### 2 4323-8, 3039-3, ####[facility] [place] [facility]CLIA [id number] [place] [address] [place] Anion gap [Moles/Vol] 19 mmol/L High 9-18 [facility] Comment on above: Order Comment: Speci men Type: BLOOD SPECIMENOrdering Facility: [facility] Address: [address] [place] [address] Performed By: #### 2 4323-8, 3040-3, 00764-7 ####[facility] [place] [facility]CLIA [id number] [place] [address] [place] AST With P-5'-P [Catalytic activity/Vol] 41 U/L High 13-35 [facility] Comment on above: Order Comment: Speci men Type: BLOOD SPECIMENOrdering Facility: [facility] Address: [address] [place] [address] Performed By: #### 2 4323-8, 3040-3, ####[facility] [place] [facility]CLIA [id number] [place] [address] [place] Bilirubin [Mass/Vol] 0.2 mg/dL Normal 0.2-1.3 [facility] Comment on above: Order Comment: Speci men Type: BLOOD SPECIMENOrdering Facility: [facility] Address: [address] [place] [address] Performed By: #### 2 4323-8, 3039-3, ####[facility] [place] [facility]CLIA [id number] [place] [address] [place] Calcium [Mass/Vol] 9.4 mg/dL Normal 8.5-10.2 [facility] Comment on above: Order Comment: Speci men Type: BLOOD SPECIMENOrdering Facility: [facility] Address: [address] [place] [address] Performed By: #### 2 4323-8, 3039-3, ####[facility] [place] [facility]CLIA [id number] [place] [address] [place] Chloride [Moles/Vol] 102 mmol/L Normal 97-105 [facility] Comment on above: Order Comment: Speci men Type: BLOOD SPECIMENOrdering Facility: [facility] Address: [address] [place] [address] Performed By: #### 2 4323-8, 0-3, ####[facility] [place] [facility]CLIA [id number] [place] [address] [place] CO2 [Moles/Vol] 21 mmol/L Low 22-30 [facility] Comment on above: Order Comment: Speci men Type: BLOOD SPECIMENOrdering Facility: [facility] Address: [address] [place] [address] Performed By: #### 2 4323-8, 3039-3, ####[email or web address] LABCLIA [id number] [place] [address] [place] Creatinine [Mass/Vol] 0.93 mg/dL Normal 0.58-0.96 [facility] Comment on above: Order Comment: Speci men Type: BLOOD SPECIMENOrdering Facility: [facility] Address: [address] [place] [address] Performed By: #### 2 4323-8, 3, ####[facility] [place] [facility]IA [id number] [place] [address] [place] Creatinine and Glomerular filtration rate.predicted panel (S/P/Bld) 78 mL/min/1.73m??? Normal >=60 [facility] Comment on above: Order Comment: Speci men Type: BLOOD SPECIMENOrdering Facility: [facility] Address: [address] [place] [address] Result Comment: Rosario mated Glomerular Filtration Rate [...] GFR. Performed By: #### 2 4323-8, 3039-3, ####[email or web address] LABCLIA [id number] [place] [address] [place] Glucose [Mass/Vol] 104 mg/dL High 74-99 [facility] Comment on above: Order Comment: Speci tomas Type: BLOOD SPECIMENOrdering Facility: [facility] Address: [address] [place] [address] Result Comment: The [place] Diabetes Association (ADA) provides guidance for cutoff [...] Standards of Medical Care in Diabetes 2016, [place] [employer]. Diabetes Care. 2016.39(Suppl 1). Performed By: #### 2 4323-8, 3039-3, ####[email or web address] LABCLIA [id number] [place] [address] [place] Potassium [Moles/Vol] 5.2 mmol/L High 3.7-5.1 [facility] Comment on above: Order Comment: Macey marin Type: BLOOD SPECIMENOrdering Facility: [facility] Address: [address] [place] [address] Performed By: #### 2 4323-8, 3039-3, ####[email or web address] LABCLIA [id number] [place] [address] [place] Protein [Mass/Vol] 7.5 g/dL Normal 6.3-8.0 [facility] Comment on above: Order Comment: Macey marin Type: BLOOD SPECIMENOrdering Facility: [facility] Address: [address] [id number] Performed By: #### 2 4323-8, 3039-3, ####[email or web address] LABCLIA [id number] [place] [address] [place] Sodium [Moles/Vol] 142 mmol/L Normal 136-144 [facility] Comment on above: Order Comment: Macey marin Type: BLOOD SPECIMENOrdering Facility: [facility] Address: [address] [id number] Performed By: #### 2 4323-8, 3040-3, 78535-7 ####[facility] LABCLIA [id number] [place] [address] [place] [facility] Urea nitrogen [Mass/Vol] 13 mg/dL Normal 7- [facility] Comment on above: Order Comment: Speci men Type: BLOOD SPECIMENOrdering Facility: [facility] Address: [address] [place] [address] Performed By: #### 2 4323-8, 3040-3, 20678-0 ####[facility] LABCLIA [id number] [place] [address] [facility] ECG COMPLETEon 06-16-2023 ECG COMPLETE Ventricular Rate : 8 6 BPM Atrial Rate : 86 BPM P-R Interval : 148 ms QRS Duration : 70 ms Q-T Interval : 392 ms QTC Calculation(Bazett) : 469 ms Calculated P [place] : 51 degrees Calculated R [place] : 52 degrees Calculated T [place] : 51 degrees NORMAL SINUS RHYTHM CANNOT RULE OUT ANTERIOR INFARCT , AGE UNDETERMINED ABNORMAL ECG Confirmed by MD VELOZ VINAYAK ([id number]) on 06/18/2023 10:51:28 PM NAME : LISA CHAUDHRY PID : [id number] : 1980 Gender : Female Race : ORD : [id number] Procedure Date : Jun 16 2023 12:08:48 Edit Date : Jun 18 2023 22:51:29 Diagnosis: NORMAL SINUS RHYTHM CANNOT RULE OUT ANTERIOR INFARCT , AGE UNDETERMINED ABNORMAL ECG Confirmed by MD VELOZ VINAYAK ([id number]) on 06/18/2023 10:51:28 PM Test Reason : Chest Pain Location : 150 : [facility] ED Overread By : MD VELOZ VINAYAK Edited By : MD VELOZ VINAYAK Referred By : , Acquired by : JUAREZ CONNOLLY Normal [facility] ECG COMPLETE Ventricular Rate : 9 8 BPM Atrial Rate : 98 BPM P-R Interval : 156 ms QRS Duration : 66 ms Q-T Interval : 376 ms QTC Calculation(Bazett) : 480 ms Calculated P [place] : 66 degrees Calculated R [place] : 57 degrees Calculated T [place] : 54 degrees POOR DATA QUALITY, INTERPRETATION MAY BE ADVERSELY AFFECTED NORMAL SINUS RHYTHM PROLONGED QT ABNORMAL ECG NO PREVIOUS ECGS AVAILABLE Confirmed by MD VELOZ VINAYAK ([id number]) on 06/18/2023 10:51:17 PM NAME : LISA CHAUDHRY PID : [id number] : 1980 Gender : Female Race : ORD : [id number] Procedure Date : Jun 16 2023 08:38:56 Edit Date : Jun 18 2023 22:51:17 Diagnosis: POOR DATA QUALITY, INTERPRETATION MAY BE ADVERSELY AFFECTED NORMAL SINUS RHYTHM PROLONGED QT ABNORMAL ECG NO PREVIOUS ECGS AVAILABLE Confirmed by MD VELOZ VINAYAK ([id number]) on 06/18/2023 10:51:17 PM Test Reason : od Location : 191 : [facility] ED Overread By : MD VELOZ VINAYAK Edited By : MD VELOZ VINAYAK Referred By : Torres, Acquired by : HAKAN BELTRAN [facility] ED NOTEon 06-16-2023 ED NOTE HNO ID: [id number] Author: HELEN MINAYA RN Service: Nursing Author Type: Registered Nurse Type: ED Notes Filed: 06/16/2023 18:33 Note Text: Report to [facility] rep [facility] ED NOTE HNO ID: [id number] Author: HELEN MINAYA RN Service: Nursing Author Type: Registered Nurse Type: ED Notes Filed: 06/16/2023 17:16 Note Text: Meal tray ordered for pt [facility] ED NOTE HNO ID: [id number] Author: KONRAD KRAUSE, KATIUSKA Service: ? Author Type: Registered Nurse Type: ED Notes Filed: 06/16/2023 16:50 Note Text: Pt to go [facility] bed 419-1, phone number for report [phone]. [facility] called for transport eta 90 min [facility] ED NOTE HNO ID: [id number] Author: HELEN MINAYA RN Service: Nursing Author Type: Registered Nurse Type: ED Notes Filed: 06/16/2023 15:14 Note Text: 2LNC discontinued, pt sat 98% RA, Dr Macdonald made aware [facility] ED NOTE HNO ID: [id number] Author: HELEN MINAYA, RN Service: Nursing Author Type: Registered Nurse Type: ED Notes Filed: 06/16/2023 14:56 Note Text: Pt return to bed from using bsc, 02 sat 88% with reliable waveform, 2LNC placed on pt [facility] ED NOTE HNO ID: [id number] Author: HELEN MINAYA, RN Service: Nursing Author Type: Registered Nurse Type: ED Notes Filed: 06/16/2023 14:26 Note Text: Pt talking to her mother on the phone. Hakan [phone] [facility] ED NOTE HNO ID: [id number] Author: KONRAD KRAUSE RN Service: ? Author Type: Registered Nurse Type: ED Notes Filed: 06/16/2023 14:14 Note Text: Meal tray delivered to pt, dr macdonald at bedside speaking with pt regarding plan of care [facility] ED NOTE HNO ID: [id number] Author: KONRAD KRAUSE RN Service: ? Author Type: Registered Nurse Type: ED Notes Filed: 06/16/2023 13:49 Note Text: Meal tray ordered for pt [facility] ED NOTE HNO ID: [id number] Author: KONRAD KRAUSE RN Service: ? Author Type: Registered Nurse Type: ED Notes Filed: 06/16/2023 13:48 Note Text: Patient informed: the name of medication, why we are giving it, possible side effects, what they may expect to feel, and was offered a chance to ask questions, prior to the administration of rocephin [facility] ED NOTE HNO ID: [id number] Author: HELEN MINAYA, KATIUSKA Service: Nursing Author Type: Registered Nurse Type: ED Notes Filed: 06/16/2023 10:27 Note Text: Dr Macdonald at bedside to talk to the patient and her sister [facility] ED NOTE HNO ID: [id number] Author: HELEN MINAYA, KATIUSKA Service: Nursing Author Type: Registered Nurse Type: ED Notes Filed: 06/16/2023 10:27 Note Text: Pt family at bedside, Pt has been given a small bottle of water [facility] ED NOTE HNO ID: [id number] Author: HELEN MINAYA RN Service: Nursing Author Type: Registered Nurse Type: ED Notes Filed: 06/16/2023 10:28 Note Text: Pt sister is asking about test results and plan of care, I let her know that Dr Macdonald would be in to discuss that information with the patient [facility] ED NOTE HNO ID: [id number] Author: HELEN MINAYA, KATIUSKA Service: Nursing Author Type: Registered Nurse Type: ED Notes Filed: 06/16/2023 09:46 Note Text: Upon returning from [facility], pt 02 sat at 88% RA, placed on 2LNC with sat increasing to 99% rapidly, will continue to monitor Normal [facility] ED NOTE HNO ID: [id number] Author: HELEN MINAYA RN Service: Nursing Author [...] is able to give her first name. [facility] ED PROV NOTEon 06-16-2023 ED PROV NOTE HNO ID: [id number] Author: GIAN MACDONALD MD Service: Emergency Medicine [...] note reviewed. Constitutional: Comments: Patient is writhing [id number] in the stretcher HENT: Head: Normocephalic and [...] type Elevated troponin COVID-19 test performed per [facility] [place] policy for suspected COVID community exposure. MDM [...] including imaging, (more content not included)... Normal [facility] Ethanol SerPl-mCncon 024 Ethanol [Mass/Vol] mg/dL Normal <11 [facility] Comment on above: Order Comment: Speci men Type: URINE SPECIMEN Ordering Facility: [facility] Address: [address] [place] [address] Performed By: #### 2 4356-8 #### [facility] CLIA [id number] [address] [place] [address] [place] FLUABV+SARS-CoV-2+RSV Pnl Re sp CHANDANA+probeon 06-16-2023 FLUABV+SARS-CoV-2+RS V Pnl Resp CHANDANA+probe COVID 19 RESULT: Not detected The method used is RT-PCR or an equivalent NAAT method. Reference Range(the expected result in uninfected individuals): Not detected INFLUENZA A PCR: Not detected INFLUENZA B PCR: Not detected RSV PCR: Not detected Normal [facility] Comment on above: Performed By: #### 9 5941-1 #### [facility] [place] [place] [facility] CLIA [id number] [address] [place] [address] [place] HIGH SENSITIVITY TROPONIN To n 06-16-2023 Troponin T.cardiac High sensitivity method [Mass/Vol] 61 ng/L High <12 [facility] Comment on above: Order Comment: Macey marin Type: URINE SPECIMEN Ordering Facility: [facility] Address: [address] [place] [address] Result Comment: When assessing risk for acute [...] MACE. Performed By: #### 2 4356-8 #### [facility] [place] [place] [facility] CLIA [id number] [address] [place] [address] Troponin T.cardiac High sensitivity method [Mass/Vol] 81 ng/L High <12 [facility] Comment on above: Order Comment: Macey marin Type: URINE SPECIMEN Ordering Facility: [facility] Address: [address] [place] [address] Result Comment: When assessing risk for acute [...] MACE. Performed By: #### 2 4356-8 #### [facility] [place] [place] [facility] CLIA [id number] [address] [place] [address] [facility] Troponin T.cardiac High sensitivity method [Mass/Vol] 69 ng/L High <12 [facility] Comment on above: Order Comment: Speci men Type: BLOOD SPECIMENOrdering Facility: [facility] Address: [address], [place] [address] Result Comment: When assessing risk for acute [...] day MACE. Performed By: #### H STNT ####[facility] [place] [facility] [id number] [place] [address] [facility] HISTORY PHYSICALon HISTORY PHYSICAL HNO ID: [id number] Author: KIMBERLEE STAPLES MD Service: Hospital Medicine Author Type: Physician Type: H&P Filed: 06/16/2023 23:52 Note Text: DEPARTMENT OF HOSPITAL MEDICINE HISTORY AND PHYSICAL EXAM SERVICE DATE: 06/16/2023 SERVICE TIME: 6:51 PM Primary Care Physician: No primary care provider on file. NIGHT AND WEEKEND COVERAGE: [place] COVERAGE: Days: [phone], please page attending physician. Nights: [phone], please page [place] [facility] Night coverage pager [phone]. Subjective CHIEF COMPLAINT: drug overdose HPI: This [...] patient was admitted for observation Mother: Hakan [phone] No past medical history on file. No [...] and Airways Line Duration Peripheral 06/16/23 0837 [facility] Short Right Arm 20 Gauge <1 day [...] and Non-Pharmaco (more content not included)... Normal [facility] Lactate (Bld) [Moles/Vol]on 06-16-2023 Lactate [Moles/Vol] 1.3 mmol/L Normal 0.5-2.2 [facility] Comment on above: Order Comment: Speci men Type: URINE SPECIMEN Ordering Facility: [facility] Address: [address] [place] [address] Performed By: #### 2 4356-8 #### [facility] [place] [place] [facility] CLIA [id number] [address] [place] [address] [place] Lipase SerPl-cCncon 06-16-19 24 Lipase [Catalytic activity/Vol] 26 U/L Normal 16-61 [facility] Comment on above: Order Comment: Speci men Type: BLOOD SPECIMENOrdering Facility: [facility] Address: [address] [place] [address] Performed By: #### 2 4323-8, 3040-3, 20571-5 ####[facility] [id number] [place] [address] [place] MORPH WAM REFLEXon 4 Anisocytosis Ql (Bld) Present Normal [facility] Comment on above: Order Comment: Speci men Type: URINE SPECIMEN Ordering Facility: [facility] Address: [address] [place] [address] Performed By: #### 2 4356-8 #### [facility] CLIA [id number] [address] [place] [address] [place] Platelets Estimate (Bld) [#/Vol] Adequate Normal [facility] Comment on above: Order Comment: Speci men Type: URINE SPECIMEN Ordering Facility: [facility] Address: [address] [place] [address] Performed By: #### 2 4356-8 #### [facility] CLIA [id number] [address] [place] [address] [place] RED CELL MORPH Reviewed: see result s of individual morphologies Normal [facility] Comment on above: Order Comment: Speci men Type: URINE SPECIMEN Ordering Facility: [facility] Address: [address] [place] [address] Performed By: #### 2 4356-8 #### [facility] CLIA [id number] [address] [place] [address] [place] TOX SCREEN ROUT URon 024 Amphetamines Confirm (U) [Mass/Vol] Negative Normal Negative [facility] Comment on above: Order Comment: Speci men Type: URINE SPECIMENOrdering Facility: [facility] Address: [address] [place] [address] Result Comment: Cuto ff threshold at 1000 ng/mL. Performed By: #### U TOX2 ####[facility] [id number] [place] [address] [facility] [place] BARBITURATES, URINE Negative Normal Negative [facility] Comment on above: Order Comment: Speci men Type: URINE SPECIMENOrdering Facility: [facility] Address: [address] [place] [address] Result Comment: Cuto ff threshold at 200 ng/mL. Performed By: #### U TOX2 ####[facility] [id number] [facility] [place] [address] [place] BENZODIAZEPINES, UR Negative Normal Negative [facility] Comment on above: Order Comment: Speci men Type: URINE SPECIMENOrdering Facility: [facility] Address: [address] [place] [address] Result Comment: Cuto ff threshold at 200 ng/mL. Performed By: #### U TOX2 ####[facility] [id number] [facility] [place] [address] [place] Cannabinoids Screen Ql (U) Negative Normal Negative [facility] Comment on above: Order Comment: Speci men Type: URINE SPECIMENOrdering Facility: [facility] Address: [address] [place] [address] Result Comment: Cuto ff threshold at 50 ng/mL. Performed By: #### U TOX2 ####[facility] [id number] [facility] [place] [address] [place] Cocaine Ql (U) Positive Abnormal Negative [facility] Comment on above: Order Comment: Speci men Type: URINE SPECIMENOrdering Facility: [facility] Address: [address] [place] [address] Result Comment: Cuto ff threshold at 300 ng/mL. Performed By: #### U TOX2 ####[facility] [id number] [facility] [place] [address] [place] Ethanol (U) [Mass/Vol] <11 Normal <11 [facility] Comment on above: Order Comment: Speci men Type: URINE SPECIMENOrdering Facility: [facility] Address: [address] [place] [address] Performed By: #### U TOX2 ####[facility] [id number] [place] [address] [place] Opiates Screen Ql (U) Negative Normal Negative [facility] Comment on above: Order Comment: Speci men Type: URINE SPECIMENOrdering Facility: [facility] Address: [address] [place] [address] Result Comment: Cuto ff threshold at 300 ng/mL. Performed By: #### U TOX2 ####[facility] [id number] [place] [address] [facility] oxyCODONE cutoff Screen (U) [Mass/Vol] Negative Normal Negative [facility] Comment on above: Order Comment: Speci men Type: URINE SPECIMENOrdering Facility: [facility] Address: [address] [place] [address] Result Comment: Cuto ff threshold at 100 ng/mL. Performed By: #### U TOX2 ####[facility] [id number] [place] [address] [facility] Phencyclidine Ql (U) Negative Normal Negative [facility] Comment on above: Order Comment: Speci men Type: URINE SPECIMENOrdering Facility: [facility] Address: [address] [place] [address] Result Comment: Cuto ff threshold at 25 ng/mL. Performed By: #### U TOX2 ####[facility] [id number] [place] [address] [facility] Urinalysis complete panel (U )on 06-16-2023 Bacteria LM.HPF (Urine sed) [#/Area] Rare Abnormal None Seen [facility] Comment on above: Order Comment: Speci men Type: URINE SPECIMEN Ordering Facility: [facility] Address: [address] [place] [address] Performed By: #### 2 4356-8 #### [facility] CLIA [id number] [address] [place] [address] [facility] Bilirubin Ql (U) Negative Normal Negative [facility] Comment on above: Order Comment: Speci men Type: URINE SPECIMEN Ordering Facility: [facility] Address: [address] [place] [address] Performed By: #### 2 4356-8 #### [facility] CLIA [id number] [address] [place] [address] [facility] Clarity (Unsp spec) Slightly Cloudy Abnormal Clear [facility] Comment on above: Order Comment: Speci men Type: URINE SPECIMEN Ordering Facility: [facility] Address: [address] [place] [address] Performed By: #### 2 4356-8 #### [facility] CLIA [id number] [address] [place] [address] [facility] Color (U) Dark Yellow Abnormal Yellow [facility] Comment on above: Order Comment: Speci men Type: URINE SPECIMEN Ordering Facility: [facility] Address: [address] [place] [address] Performed By: #### 2 4356-8 #### [facility] CLIA [id number] [address] [place] [id number] [facility] Epithelial cells LM.HPF (Urine sed) [#/Area] Few Normal [facility] Comment on above: Order Comment: Speci men Type: URINE SPECIMEN Ordering Facility: [facility] Address: [address] [place] [address] Performed By: #### 2 4356-8 #### [facility] CLIA [id number] [address] [place] [address] [facility] Glucose Test strip (U) [Mass/Vol] Trace Abnormal Negative [facility] Comment on above: Order Comment: Speci men Type: URINE SPECIMEN Ordering Facility: [facility] Address: [address] [place] [address] Performed By: #### 2 4356-8 #### [facility] CLIA [id number] [address] [place] [address] [facility] OF [place] Hemoglobin Ql (U) 3+ Abnormal Negative [facility] Comment on above: Order Comment: Speci men Type: URINE SPECIMEN Order[facility] Facility: [facility] Address: [address] [place] [address] Performed By: #### 2 4356-8 #### [facility] CLIA [id number] [address] [place] [address] [place] Hyaline casts (Urine sed) [#/Area] 1-3 /LPF Abnormal 0 /LPF [facility] Comment on above: Order Comment: Speci men Type: URINE SPECIMEN Order[facility] Facility: [facility] Address: [address] [place] [address] Performed By: #### 2 4356-8 #### [facility] CLIA [id number] [address] [place] [address] [facility] OF [place] Ketones Ql (U) 1+ Abnormal Negative [facility] Comment on above: Order Comment: Speci men Type: URINE SPECIMEN Order[facility] Facility: [facility] Address: [address] [place] [address] Performed By: #### 2 4356-8 #### [facility] CLIA [id number] [address] [place] [address] [facility] Leukocyte esterase Test strip Ql (U) Negative Normal Negative [facility] Comment on above: Order Comment: Speci men Type: URINE SPECIMEN Order[facility] Facility: [facility] Address: [address] [place] [address] Performed By: #### 2 4356-8 #### [facility] CLIA [id number] [address] [place] [address] [place] Nitrite Ql (U) Negative Normal Negative [facility] Comment on above: Order Comment: Speci men Type: URINE SPECIMEN Ordering Facility: [facility] Address: [address] [place] [address] Performed By: #### 2 4356-8 #### [facility] CLIA [id number] [address] [place] [address] [facility] [place] pH (U) 5.5 [pH] Normal 5.0-8.0 [facility] Comment on above: Order Comment: Speci men Type: URINE SPECIMEN Order[facility] Facility: [facility] Address: [address] [place] [address] Performed By: #### 2 4356-8 #### [facility] CLIA [id number] [address] [place] [address] [place] Protein (U) [Mass/Vol] 2+ Abnormal Negative [facility] Comment on above: Order Comment: Speci men Type: URINE SPECIMEN [facility] Address: [address] [place] [address] Performed By: #### 2 4356-8 #### [facility] CLIA [id number] [address] [place] [id number] [place] [address] RBC LM.HPF (Urine sed) [#/Area] 3-5 /HPF Abnormal 0-3 /HPF [facility] Comment on above: Order Comment: Speci men Type: URINE SPECIMEN Order[facility] Facility: [facility] Address: [address] [place] [address] Performed By: #### 2 4356-8 #### [facility] CLIA [id number] [address] [place] [address] [place] Specific gravity (U) [Rel density] >=1.030 High 1.005-1.030 [facility] Comment on above: Order Comment: Speci men Type: URINE SPECIMEN Order[facility] Facility: [facility] Address: [address] [place] [address] Performed By: #### 2 4356-8 #### [facility] CLIA [id number] [address] [place] [address] Urobilinogen Ql (U) 0.2 EU/dL Normal 0.2-1.0 EU/dL [facility] Comment on above: Order Comment: Speci men Type: URINE SPECIMEN Order[facility] Facility: [facility] Address: [address] [place] [address] Performed By: #### 2 4356-8 #### [facility] CLIA [id number] [address] [place], [place] [address] [place] WBC LM.HPF (Urine sed) [#/Area] 6-10 /HPF Abnormal 0-5 /HPF [facility] Comment on above: Order Comment: Speci men Type: URINE SPECIMEN Ordering Facility: [facility] Address: [address] [place] [address] Performed By: #### 2 4356-8 #### [facility] CLIA [id number] [address] [place] [address] OF [facility] XR CHEST 1V FRONTALon 2023 XR CHEST [...] semiupright portable exam. Correlation with clinical symptoms Offal Trimmer: SURENDRA Transcribe Date/Time: Jun 16 2023 10:02A Dictated by : KIM RODRIGUEZ MD This examination was interpreted and the report reviewed and electronically signed by: KIM RODRIGUEZ MD on Jun 16 2023 10:03AM EST [id number] Normal [facility] CBC panel Auto (Bld)on 07-10 Erythrocyte distribution width (RBC) [Ratio] 14.1 % 11.5 - 14.5 % [facility] Hematocrit (Bld) [Volume fraction] 44.1 % 35.0 - 47.0 % [facility] Hemoglobin (Bld) [Mass/Vol] 14.7 g/dL 11.7 - 16.0 g/dL [facility] Interpretation and review of laboratory results Normal [facility] MCH (RBC) [Entitic mass] 31.1 pg 26.0 - 34.0 pg [facility] MCHC (RBC) [Mass/Vol] 33.3 % 32.0 - 36.0 % [facility] MCV (RBC) [Entitic vol] 93.3 fL 80.0 - 98.0 fL [facility] Exo Platelet mean volume (Bld) [Entitic vol] 8.7 fL 7.4 - 12.4 fL [facility] Exo Platelets (Bld) [#/Vol] 278 10*3/uL 140 - 440 10*3/uL [facility] RBC (Bld) [#/Vol] 4.73 10*6/uL 3.8 - 5.20 10*6/uL [facility] WBC (Bld) [#/Vol] 10.0 10*3/uL 3.6 - 10.7 10*3/uL [facility] - Chemistry and C hemistry - challengeOrdered By: Margarita Grewal on 07-10-2022 Beta HCG ( test) Ql Negative Negative [facility] Comment on above: Please note: Very di lute urine specimens, as indicated by a low specific gravity, may not contain claims service representative levels of hCG. If is still suspected, a first morning urine specimen should be collected 48 hours later and tested. Beta HCG ( test) Ql (U) is the most common reason for HCG in urine, although choriocarcinoma, hydatidiform mole, and certain nontrophoblastic malignancies also result in detectable urinary HCG levels. Sensitivity = 20mIU/mL. [facility] No Panel InformationOrdered By: Margarita Grewal on 07-10-2022 [facility] Basophil percentageOrdered B y: Dr. Sauceda on 07-03-2022 Basophil percentage TNP [facility] Comment on above: Test not performed No Panel InformationOrdered By: Dr. Sauceda on 07-03-2022 Addendum Document Comment . [facility] Comment on above: The quantitative ran ge of this assay is 15 IU/mL to 100million IU/mL.Performed at: [address] [id number] Director: Lenin Christensen MD, Phone: [phone] Serum or plasma hepatitis C virus RNA measurement by probe and target amplification mOrdered By: Dr. Sauceda on 07-03-2022 HCV RNA CHANDANA+probe Qn Not detected . [facility] HCG ( test) Ql (U)o n 06-28-2022 Beta HCG ( test) Ql (U) . [facility] NEGATIVE QC Pass [facility] POSITIVE QC Pass [facility] Preg Test, Ur Negative Negative [facility] Absolute lymphocyte countOrd ered By: Konrad Hampton on 06-20-2022 Lymphocytes Auto (Unsp spec) [#/Vol] 3.12 10*3/uL 0.83-4.51 [facility] Basophil percentageOrdered B y: Konrad Hampton on 06-20-2022 Basophil percentage TNP [facility] Comment on above: Test not performed Basophils/100 WBC (Bld) 0.5 % 0-1 [facility] Bilirubin [Mass/Vol] 0.20 mg/dL 0.20-1.00 [facility] Comment on above: For patients on eltr ombopag therapy, use of Dimension [place] TBIL is not recommended. Chloride [Moles/Vol] 110 mmol/L 98-107 [facility] Eosinophils/100 WBC (Bld) 3.0 % 0-5 [facility] Glucose [Mass/Vol] 98 mg/dL 74-106 [facility] Neutrophils (Bld) [#/Vol] 4.9 10*3/uL 2.0-7.7 [facility] Neutrophils/100 WBC (Bld) 53.0 % 47-70 [facility] Potassium [Moles/Vol] 4.0 mmol/L 3.5-5.1 [facility] Protein [Mass/Vol] 7.7 g/dL 6.4-8.2 [facility] Sodium [Moles/Vol] 140 mmol/L 136-145 [facility] WBC (Bld) [#/Vol] 9.2 10*3/uL 4.4-11.0 [facility] Blood erythrocytes count (nu mber/volume)Ordered By: Konrad Hampton on 06-20-2022 RBC (Bld) [#/Vol] 4.51 10*6/uL 4.2-5.4 [facility] Blood hemoglobin measurement (mass/volume)Ordered By: Konrad Hampton on 06-20-2022 Hemoglobin (Bld) [Mass/Vol] 14.0 g/dL 12.0-15.0 [facility] Blood lymphocytes/100 leukoc ytesOrdered By: Konrad Hampton on 06-20-2022 Lymphocytes/100 WBC (Bld) 33.8 % 19-41 [facility] Blood monocytes/100 leukocyt esOrdered By: Konrad Hampton on 06-20-2022 Monocytes/100 WBC (Bld) 9.0 % 0-10 [facility] Blood platelet mean volumeOr dered By: Konrad Hampton on 06-20-2022 Platelet mean volume (Bld) [Entitic vol] 11.3 fL 6.2-12.0 [facility] Determination of erythrocyte mean corpuscular volume (MCV)Ordered By: Konrad Hampton on 06-20-2022 MCV (RBC) [Entitic vol] 96.0 fL 81-99 [facility] Hematocrit Auto (Bld) [Volum e fraction]Ordered By: Konrad Hampton on 06-20-2022 Hematocrit (Bld) [Volume fraction] 43.3 % 37-47 [facility] Laboratory - Chemistry and C hemistry - challengeOrdered By: Konrad Hampton on 06-20-2022 ALP [Catalytic activity/Vol] 77 U/L 45-117 [facility] ALT [Catalytic activity/Vol] 36 U/L 13-56 [facility] CO2 [Moles/Vol] 25.0 mmol/L 21.0-32.0 [facility] Globulin (S) [Mass/Vol] 4.0 g/dL 2.2-4.2 [facility] Urea nitrogen/Creatinine [Mass ratio] 19.5 mg/mg 10-20 [facility] Laboratory - Hematology and Cell countsOrdered By: Konrad Hampton on 06-20-2022 Erythrocyte distribution width (RBC) [Entitic vol] 47.5 fL 35.1-43.9 [facility] Erythrocyte distribution width (RBC) [Ratio] 13.3 % 11.6-14.6 [facility] Immature granulocytes/100 WBC (Bld) 0.700 % 0.0-0.9 [facility] Comment on above: IG% - Immature Granu locytes (promyelocytes, myelocytes and metamyelocytes) > 1% indicates that a LEFT SHIFT is Present. MCH (RBC) [Entitic mass] 31.0 pg 27.0-32.0 [facility] Nucleated RBC/100 WBC (Bld) [Ratio] 0 % 0-5 [facility] Laboratory - Miscellaneous t estsOrdered By: Konrad Hampton on 06-20-2022 Service comment (Unsp spec) [Interp] Comment . [facility] Comment on above: This test was develo ped and its performance characteristicsdetermined by [employer]. It has not been cleared or approvedby the U.S. Food and Drug Administration.The FDA has determined that such clearance or approval isnot necessary. This test is used for clinical purposes. Itshould not be regarded as investigational or for research.Performed at: [address] [id number] Director: Lenin Christensen MD, Phone: [phone] MCHC Auto (RBC) [Mass/Vol]Or dered By: Konrad Hampton on 06-20-2022 MCHC (RBC) [Mass/Vol] 32.3 g/dL 32-36 [facility] No Panel InformationOrdered By: Konrad Hampton on 06-20-2022 Addendum Document Comment . [facility] Comment on above: The quantitative ran ge of this assay is 15 IU/mL to 100million IU/mL. Estimated GFR (MDRD) Amer 114 mL/min >60 [facility] Comment on above: GFR Calc Estimated GFR (MDRD) Non-Af Amer 94 mL/min >60 [facility] Comment on above: Non- GFR Calc Hepatitis C Genotype TNP [facility] Comment on above: Test not performedTe st not performed. Unable to provide an HCV genotype forthis sample. The most common reason an HCV genotype cannotbe determined is due to a viral load of <1,000 IU/mL, ormore rarely, the presence of an untypable HCV genotype. Platelets bldOrdered By: Severo Hampton on 06-20-2022 Platelets (Bld) [#/Vol] 300 10*3/uL 150-450 [facility] Serum or plasma albumin jax urement (mass/volume)Ordered By: Konrad Hampton on 06-20-2022 Albumin [Mass/Vol] 3.7 g/dL 3.2-5.0 [facility] Serum or plasma albumin/glob ulin mass ratioOrdered By: Konrad Hampotn on 06-20-2022 Albumin/Globulin [Mass ratio] 0.9 {ratio} 0.9-2.4 [facility] Serum or plasma calcium jax urement (mass/volume)Ordered By: Konrad Hampton on 06-20-2022 Calcium [Mass/Vol] 9.3 mg/dL 8.5-10.1 [facility] Serum or plasma creatinine m easurement (mass/volume)Ordered By: Konrad Hampton on 06-20-2022 Creatinine [Mass/Vol] 0.72 mg/dL 0.55-1.02 [facility] Comment on above: The validity of the calculated GFR & GFRAA in patients over 70 years has not been determined. Clinical correlation is essential. Serum or plasma hepatitis C virus RNA measurement by probe and target amplification mOrdered By: Konrad Hampton on 06-20-2022 HCV RNA CHANDANA+probe Qn Not detected . [facility] Serum or plasma urea nitroge n measurement (mass/volume)Ordered By: Konrad Hampton on 06-20-2022 Urea nitrogen [Mass/Vol] 14 mg/dL 7-18 [facility] Thin prep Papanicolaou smear with manual screeningOrdered By: Konrad Hampton on 06-20-2022 Thin prep Papanicolaou smear with manual screening 34 U/L 15-37 [facility] Thin prep Papanicolaou smear with manual screening 5 5-15 [facility] HCG ( test) Ql (U)o n 06-07-2022 Beta HCG ( test) Ql (U) . [employer]. NEGATIVE QC Pass [employer]. POSITIVE QC Pass [facility] [employer] Preg Test, Ur Negative Negative [facility] [employer] US Pelvis transvaginalon Simple appearing left ovarian cyst with possibel irregular borders. Endometrium is echogenic, uniform and thin measuring 1.37mm No free fluid or adnexal masses seen. Follow up as clinically indicated. Patient is scheduled to see Dr. Worley following ultrasound 06/07/2022. *Ultrasound cannot detect all pelvic or CHILD WELFARE CONSULTANT abnormalities and normal findings cannot guarantee the absence of a problem.* [facility] Gynecological Report (Signed Final 05/07/2022 02:00 pm) PATIENT INFO: ID #: [id number] : [birth year] (42 yrs)(F) Name: LISA CHAUDHRY Visit Date: 05/06/2022 09:01 am PERFORMED BY: Attending: Nathan Brooks MD Performed By: Kerri Soto RDMS Referred By: SHANTE WORLEY MD Location: [facility] [place] Visit Type: [facility] SERVICE(S) PROVIDED: [employer] Transvaginal [id number] INDICATIONS: Abnormal uterine and vaginal bleeding, N93.9 unspecified LMP January 2022 TV CHILD WELFARE CONSULTANT ultrasound TECHNIQUE/SCAN QUALITY: Technique: Transvaginal Approach COMPARISON: [...] 05/07/2022 02:00 pm) PATIENT INFO: ID #: [id number] : [birth year] (42 yrs)(F) Name: LISA CHAUDHRY Visit Date: 05/06/2022 09:01 am PERFORMED BY: Attending: Nathan Brooks MD Performed By: Kerri Soto RDMS Referred By: SHANTE WORLEY MD Location: [facility] [place] Visit Type: [facility] SERVICE(S) PROVIDED: [employer] Transvaginal [id number] INDICATIONS: Abnormal uterine and vaginal bleeding, N93.9 unspecified LMP January 2022 TV CHILD WELFARE CONSULTANT ultrasound TECHNIQUE/SCAN QUALITY: Technique: Transvaginal Approach COMPARISON: [...] 06/07/2022. *Ultrasound cannot detect all pelvic or CHILD WELFARE CONSULTANT abnormalities and normal findings cannot guarantee the absence of a problem.* [facility] [employer] US Pelvis transvaginalOrdere d By: Nathan Brooks on 05-07-2022 [employer]. Work Phone: US Pelvis transvaginalon Radiology Study observation (narrative) [facility] DBT Breast - bilateral scree ningon 05-02-2022 No mammographic evid ence of malignancy. ASSESSMENT: Category 1 Negative RECOMMENDATION: Routine screening mammogram in 1 year. Bilateral Report Dictated on Electronically Signed By: Faith Deluca Electronically Signed Date/Time: 05/02/2022 3:01 PM [facility] Patient Name: LISA CHAUDHRY Exam Date/Time: 05/02/2022 11:30 Procedure: BI MAMMOGRAM SCREENING TOMOSYNTHESIS BILATERAL Ordering Provider: WORLEY EILEEN Reason For Exam: Image views: 2D Bilateral CC and MLO views were acquired. 3D Bilateral CC and MLO views were acquired. Images were reviewed with CAD. Markings on images: BB's = Nipples; skin lesions Open [place] = Palpable Line = Scar COMPARISON: 01/21/2019 TISSUE DENSITY: BIRADS C - The breast tissue is heterogeneously dense, which could obscure underlying abnormalities. FINDINGS: No suspicious masses, architectural distortions or suspiciously clustered microcalcifications are identified. There is no evidence of skin thickening or nipple retraction. There are no significant changes when compared with prior studies. [facility] Faith Deluca MD - 05/02/2022 Patient Name: LISA CHAUDHRY Exam Date/Time: 05/02/2022 11:30 Procedure: BI MAMMOGRAM SCREENING TOMOSYNTHESIS BILATERAL Ordering Provider: WORLEY EILEEN Reason For Exam: Image views: 2D Bilateral CC and MLO views were acquired. 3D Bilateral CC and MLO views were acquired. Images were reviewed with CAD. Markings on images: BB's = Nipples; skin lesions Open [place] = Palpable Line = Scar COMPARISON: 01/21/2019 [...] Electronically Signed Date/Time: 05/02/2022 3:01 PM EST [employer]. Radiology Study observation (narrative) [employer]. DBT Breast - bilateral scree ningOrdered By: Faith Deluca on 05-02-2022 [employer]. Work Phone: IO Rapid Strepon 12-19-2021 S. pyogenes Ag Ql (Throat) Negative [facility] Phone: Office Visit (Urgent Care)on 12-19-2021 Follow-up visit Diagnoses/Problems Assessed Acute frontal sinusitis (461.1) (J01.10) 2+ pitting edema (782.3) (R60.9) Orders Acute frontal sinusitis Start: Cefdinir 300 MG Oral Capsule; TAKE 1 CAPSULE EVERY 12 HOURS DAILY Rx By: Darrell Mcgowan; Dispense: 10 Days ; #:20 Capsule; Refill: 0;For: Acute frontal sinusitis; LA = N; Sent To: [facility] Sore throat IO Rapid Strep; Status:Resulted - Requires Verification,Retrospective Authorization; Done: [id number] 07:45PM Performed:In Office; Due:[id number]; Last Updated By:Chinyere Ramos; 12/19/2021 7:45:16 PM;Ordered; For:Sore throat; Ordered By:Darrell Mcgowan; Patient Discussion/Summary Sinusitis. We will treat with Omnicef. Pitting edema. Follow-up with your doctor soon as possible. Qwju-sgz-gvpnfpm medications as needed. Provider Impressions Sinusitis. We will treat with Omnicef. Pitting edema. Follow-up with your doctor soon as possible. Ohlk-mmt-hkybywv medications as needed. Chief Complaint Chief Complaints [...] of breath. Patient states partial relief with feyb-kdi-lcgueee medications. Patient reports that she has had [...] content not included)... Normal [facility] PHQ-2 [facility] 12-19-2021 Adult depression screening assessment No [facility] Work Phone: Fall risk assessment a) No falls within the last year [facility] Work Phone: Office Visit (Primary Care F [...] to visit. Spent 11 minutes with patient goka-cu-fckl via virtual visit. Nausea and vomiting (787.01) [...] Dysuria; LA = N; Verified Transmission to [facility]; Last Updated By: [employer] LYFE Kitchen; 03/08/2021 4:15:43 PM IO UA (automated w/o microscopy); Status:Canceled; Perform:In Office; Due:[id number];Ordered; For:Dysuria; Ordered By:Herlinda Hoyt; Mild intermittent asthma without complication Start: Nebulizer; USE DIRECTED Rx By: Herlinda Hoyt; Dispense: 0 Days ; #:1 Each; Refill: 0;For: Mild intermittent asthma without complication; LA = N; Verified Transmission to [facility]; Last Updated By: [employer]; 03/08/2021 4:46:07 PM Nausea and vomiting Start: Ondansetron 4 MG Oral Tablet Disintegrating; TAKE 1 TABLET 4 times daily PRN nausea Rx By: Herlinda Hoyt; Dispense: 0 Days ; #:20 Tablet; Refill: 0;For: Nausea and vomiting; LA = N; Verified Transmission to [facility]; Last Updated By: Modesta LYFE Kitchen; 03/08/2021 4:15:52 PM Suspected COVID-19 virus infection Coronavirus 2019 RNA by PCR, Symptomatic; Status:Active; Requested for:08Mar2021; Perform:Lab Services - Lab To Draw (Non-Blood Test); Due:[id number];Ordered; For:Suspected COVID-19 virus infection; Ordered By:Herlinda Hoyt; ? : No RESIDENT IN CONGREGATE CARE SETTING? : No ICU? : No HOSPITALIZED (OR PLANNED TO BE ADMITTED)? : No EMPLOYED IN HEALTHCARE? : No FIRST COVID NASAL SWAB TEST? : Yes Symptom 2 : Cough Symptom 1 : Fever DATE OF SYMPTOM ONSET? : [id number] IS THE PATIENT SYMPTOMATIC DEFINED BY THE [...] but no (more content not included)... Normal [facility] Office Visiton 01-30-2021 Follow-up visit Diagnoses/Problems History [...] hepatic coma Complete Blood Count; Status:Active; Requested for:[id number]; HCV RNA By PCR [Viral Load]; Status:Active; Requested for:[id number]; Hepatic Function Panel; Status:Active; Requested for:[id number]; PT/INR; Status:Active; Requested for:[id number]; Patient Discussion/Summary I ordered labs to further evaluate her hepatitis and she states she does not want to do those right now until she is in remission. Her medications were refilled for asthma medicine and migraine. Chief Complaint Pt presents to establish new PCP; previous pt of Dr. Nicki Nguyen, [facility]; Asthma History of Present IllnessShe presents today [...] drug depen (more content not included)... Normal [facility] Tobacco Screening.on 021 Fall risk assessment a) No falls within the last year [facility] Work Phone: Tobacco use status CPHS a) Yes [facility] Work Phone: ACETAMINOPHEN LEVELOrdered B y: Pamela Lopez on 08-11-2020 Acetaminophen Level <10.0 10.0 - 3 0.0 ug/mL [employer] Work Phone: Acetaminophenon 08-11-2020 Acetaminophen [Mass/Vol] ug/mL Normal 10.0-30.0 [facility] Comment on above: Performed By: #### S AL33, BMP3, ETOH4, HEMDF, ACET4 #### [facility] [address] [place] [id number] Basic Metabolic Panelon 07-21 Calcium [Mass/Vol] 9.7 mg/dL Normal 8.4-10.4 [facility] Comment on above: Performed By: #### S AL33, BMP3, ETOH4, HEMDF, ACET4 #### [place] [address] [address] [place], [place] Glucose [Mass/Vol] 122 mg/dL High 70-100 [facility] Comment on above: Performed By: #### S AL33, BMP3, ETOH4, HEMDF, ACET4 #### [place] [address] [address] [place], [place] Anion gap [Moles/Vol] 9 mmol/L Normal 3-13 [facility] Comment on above: Performed By: #### S AL33, BMP3, ETOH4, HEMDF, ACET4 #### [place] [address] [address] [place], [place] CO2 [Moles/Vol] 24 mmol/L Normal 22-30 [facility] Comment on above: Performed By: #### S AL33, BMP3, ETOH4, HEMDF, ACET4 #### [place] [address] [address] [place], [place] Creatinine [Mass/Vol] 0.46 mg/dL Low 0.52-1.25 [facility] Comment on above: Performed By: #### S AL33, BMP3, ETOH4, HEMDF, ACET4 #### [place] [address] [address] [place], [place] eGFR OTHER > 90.0 Normal >60 [facility] Comment on above: Result Comment: KDIG [...] S AL33, BMP3, ETOH4, HEMDF, ACET4 #### [place] [address] [place], [place] GFR/1.73 sq M.predicted among blacks MDRD (S/P/Bld) [Vol rate/Area] mL/min/{1.73_m2} Normal >60 [facility] Comment on above: Performed By: #### S AL33, BMP3, ETOH4, HEMDF, ACET4 #### [place] [address] [place], [place] Urea nitrogen [Mass/Vol] 9 mg/dL Normal 7-20 [facility] Comment on above: Performed By: #### S AL33, BMP3, ETOH4, HEMDF, ACET4 #### [place] [address] [place] Potassium [Moles/Vol] 4.0 mmol/L Normal 3.5-5.1 [facility] Comment on above: Performed By: #### S AL33, BMP3, ETOH4, HEMDF, ACET4 #### [place] [address] [place] Chloride [Moles/Vol] 106 mmol/L Normal 98-107 [facility] Comment on above: Performed By: #### S AL33, BMP3, ETOH4, HEMDF, ACET4 #### [place] [address] [place] Sodium [Moles/Vol] 140 mmol/L Normal 135-145 [facility] Comment on above: Performed By: #### S AL33, BMP3, ETOH4, HEMDF, ACET4 #### [place] [address] [place], [place] Basic Metabolic PanelOrdered By: Pamela Lopez on 08-11-2020 Anion gap [Moles/Vol] 9 mmol/L 3 - 13 mmol/L [facility] Work Phone: Calcium [Mass/Vol] 9.7 mg/dL 8.4 - 10. 4 mg/dL [facility] Work Phone: [phone] Chloride [Moles/Vol] 106 mmol/L 98 - 10 7 mmol/L [facility] Work Phone: [phone] CO2 [Moles/Vol] 24 mmol/L 22 - 30 mmol/L [facility] Work Phone: [phone] Creatinine [Mass/Vol] 0.46 mg/dL Low 0.52 - 1.25 mg/dL [facility] Work Phone: [phone] EGFR IF NonAfrican Malagasy >90.0 >60 mL/min [facility] Work Phone: [phone] Comment on above: KDIGO guidelines pro [...] rate/Area] mL/min/{1.73_m2} >60 mL/min [facility] Work Phone: [phone] Glucose [Mass/Vol] 122 mg/dL High 70 - 100 mg/dL [facility] Work Phone: [phone] Potassium [Moles/Vol] 4.0 mmol/L 3.5 - 5.1 mmol/L [facility] Work Phone: [phone] Sodium [Moles/Vol] 140 mmol/L 135 - 145 mmol/L [facility] Work Phone: [phone] Urea nitrogen (BldV) [Mass/Vol] 9 mg/dL 7 - 20 mg/dL [facility] Work Phone: Complete Urinalysison 2020 Bilirubin,Urine Negative Normal Negative [facility] Comment on above: Result Comment: . Performed By: #### C UA2JASMIN, DRGA4 #### [facility] [address] [place], [place] Glucose Ql (U) Normal Normal Normal (<70) [facility] [employer] Comment on above: Result Comment: . Performed By: #### C UA2, KIARRAU, DRGA4 #### [facility] [address] [place], [place] Ketone,Urine 10 mg/dL Abnormal Negative [facility] Comment on above: Result Comment: . Performed By: #### C UA2, KIARRAU, DRGA4 #### [place] [address] [address] [place], [place] Leukocytes,Urine Negative Normal Negative [facility] Comment on above: Result Comment: . Performed By: #### C UA2, KIARRAU, DRGA4 #### [facility] [place] [address] [address] [place], [place] Nitrites,Urine Negative Normal Negative [facility] Comment on above: Result Comment: . Performed By: #### C UA2, KIARRAU, DRGA4 #### [facility] [place] [address] [address] [place], [place] pH,Urine 8.0 Normal 5.0-8.0 [facility] [employer] Comment on above: Result Comment: . Performed By: #### C UA2, KIARRAU, DRGA4 #### [employer] [place] [address] [address] [place], [place] Specific [place],Urine 1.013 Normal 1.005 - 1.030 [facility] [employer] Comment on above: Result Comment: . Performed By: #### C UA2, KIARRAU, DRGA4 #### [employer] [place] [address] [address] [place], [place] Complete UrinalysisOrdered B y: Pamela Lopez on 08-11-2020 Appearance (U) Turbid Abnormal Clear [facility] Work Phone: Comment on above: . Result Comment: . Performed By: #### C JASMIN B[place], DRGA4 #### [place] [address] [address] [place], [place] Color (U) Light-Yellow Normal Lt. Yellow [facility] Work Phone: Comment on above: . Result Comment: . Performed By: #### C JASMIN BECKF[place], DRGA4 #### [place] [address] [address] [place], [place] Occult Blood,Urine Negative Normal Negative [facility] Work Phone: Comment on above: . Result Comment: . Performed By: #### C JASMIN B[place], DRGA4 #### [place] [address] [address] [place], [place] Total Protein, Urine Negative Normal Negative [facility] Work Phone: Comment on above: . Result Comment: . Performed By: #### JASMIN BURKS, DRGA4 #### [place] [address] [address] [place], [place] Urobilinogen, Urine Normal Normal Normal (0-1) [facility] Work Phone: Comment on above: . Result Comment: . Performed By: #### JASMIN BURKS DRGA4 #### [place] [address] [address] [place], [place] Drugs of Abuseon 08-11-2020 Amphetamines, Ur Negative Normal [facility] Comment on above: Performed By: #### JASMIN BURKS DRGA4 #### [place] [address] [address] [place], [place] Phencyclidine (PCP), Ur Negative Normal [facility] Comment on above: Result Comment: The [...] By: #### C UA2, FENTU, DRGA4 #### [facility] [address] [place], [place] Methadone, Ur Negative Normal [facility] Comment on above: Performed By: #### C UA2, FENTU, DRGA4 #### [facility] [address] [place], [place] Cocaine, Ur Negative Normal [facility] Comment on above: Performed By: #### C UA2, FENTU, DRGA4 #### [place] [address] [address] [place], [place] Opiates, Ur Negative Normal [facility] Comment on above: Performed By: #### C UA2, FENTU, DRGA4 #### [place] [address] [address] [place], [place] Barbiturates, Ur Negative Normal [facility] Comment on above: Performed By: #### C UA2, FENTU, DRGA4 #### [place] [address] [address] [place], [place] Benzodiazepines, Ur Negative Normal [facility] Comment on above: Performed By: #### C UA2, FENTU, DRGA4 #### [place] [address] [address] [place], [place] Oxycodone/Oxymorphin e,Ur Negative Normal [facility] Comment on above: Performed By: #### C UA2, FENTU, DRGA4 #### [facility] [address] [place], [place] ED Provider Noteon ED Provider Note [facility] EMERGENCY DEPT eMERGENCY dEPARTMENT eNCOUnter Pt Name: Lisa Chaudhry Birthdate 1980 Date of evaluation: 08/11/2020 Provider: Pamela Lopez PA-C CHIEF COMPLAINT Chief Complaint Patient presents with ? Drug Overdose patient to ED11 with potential overdose on unknown substance. patient sent from [facility], patient noted to have dilated pupils and sleepy. patient admits to using $50 worth of Heroin yesterday at 1200. patient denies using any substance since then. patient was found by [facility] staff to have multiple suboxone patches on [...] of possible overdose. Patient is here from [facility]. States the nurse gave her medicine, a pill, a has been very sleepy since. Feels nauseous since with out emesis. [facility] concerned of possible other substance ingestion due to drowsy state and dilated pupils. She states yesterday she used Heroin but hasn't used any today. Prior to going into [facility] used $50 of Heroin daily. Today was found by staff with 3 Suboxone films on her person. Nursing Notes were reviewed. REVIEW OF SYSTEMS (2+ forlevel 4; 10+ for level 5) Review of Systems at least 10 systems reviewed and otherwise acutely negative except as stated in [place]. PAST MEDICAL HISTORY Past Medical History: Diagnosis [...] Physical ac (more content not included)... Normal [facility] ED Provider Note Emergency Department Encounter [facility] EMERGENCY DEPT Patient: Lisa Chaudhry : 1980 [...] mental status. The patient is at the [facility] and they reportedly found 3 Suboxone films [...] Brief ED course/MDM: Patient placed on a manager monitoring will be evaluated with blood work here [...] occasionally words are mis-transcribed.) BLANCA LINDSEY MD [employer] Blanca Lindsey MD 08/11/20 7047 [facility] ED Provider Note Emergency Department Encounter Location: [facility] EMERGENCY DEPT Patient: Lisa Chaudhry : 1980 [...] eGFR >90.0 >60 mL/min EGFR IF NonAfrican Malagasy >90.0 >60 mL/min Calcium 9.7 8.4 - [...] # 1.4 1.0 - 4.3 10*3/uL Absolute [place] # 0.3 0.0 - 0.8 10*3/uL Absolute Eos # 0.0 0.0 - 0.5 10*3/uL Absolute Baso # 0.0 0.0 - 0.2 10*3/uL Urinalysis Result Value Ref Range Glucose, Ur Normal Normal (<70) mg/dL Total Protein, Urine Negative Negative mg/dL Bilirubin Urine Negative Negative mg/dL Urobilinogen, Urine Normal Normal (0-1) mg/dL pH, Urine 8.0 5.0 - 8.0 NA Specific [place], Urine 1.013 1.005 - 1.030 NA Occult [...] HCG, Urine, POC Negative Negative Lot Number [id number] Positive QC Pass/Fail Pass Negative QC Pass/Fail [...] Solutions Dayo Beasley MD 08/15/20 0650 Normal [facility] EthanolOrdered By: Pamela Lopez on 08-11-2020 Ethanol Lvl <0.010 0.000 - 0.010 g/dL [facility] Work Phone: Comment on above: NOTE: This result is for medical treatment only. Analysis performed using non-forensic procedures. Ethanol Serum/Plasmaon 08-11 Ethanol-Serum/Plasma < 0.010 Normal 0.000-0.010 [facility] Comment on above: Result Comment: NOTE : This result is for medical treatment only. Analysis performed using non-forensic procedures. Performed By: #### S AL33, BMP3, ETOH4, HEMDF, ACET4 #### [facility] [address] [place] [address] FENTANYL, URINEOrdered By: Betzaida Lopez on 08-11-2020 Fentanyl Positive Negative NA [facility] Work Phone: Comment on above: Fentanyl has been sc reened for by Immunoassay at a 2ng/ml threshold. POSITIVE results are not confirmed by a more specific alternative method unless requested. If confirmation is needed, request confirmation under separate order. NOTE: These results are for medical treatment only. Analysis performed using non-forensic procedures. Test Performed by [facility], [address] [place] [address] [facility] Work Phone: [phone] Fentanyl Screen, Urineon Fentanyl Screen, Urn Positive Normal Negative [facility] Comment on above: Result Comment: Fent anyl has been screened for by Immunoassay at a 2ng/ml threshold. POSITIVE results are not confirmed by a more specific alternative method unless requested. If confirmation is needed, request confirmation under separate order. NOTE: These results are for medical treatment only. Analysis performed using non-forensic procedures. Performed By: #### C UA2, FENTU, DRGA4 #### [facility] [address] [place] [phone] Hemogram (CBC) w/Auto DiffOr dered By: Pamela Lopez on 08-11-2020 Absolute Baso # 0.0 10*3/uL 0.0 - 0.2 10*3/uL [employer] Work Phone: [phone] Absolute Neut # 6.7 10*3/uL 1.8 - 7.0 10*3/uL [employer] Work Phone: [phone] Basophils/100 WBC (Bld) 0.2 % 0.0 - 2.0 % [employer] Work Phone: [phone] Eosinophils (Bld) [#/Vol] 0.0 10*3/uL 0.0 - 0.5 10*3/uL [employer] Work Phone: [phone] Eosinophils/100 WBC (Bld) 0.1 % Low 1.0 - 6.0 % [employer] Work Phone: [phone] Granulocytes/100 WBC (Bld) 79.3 % 40.0 - 80.0 % [employer] Work Phone: [phone] Hematocrit (Bld) [Volume fraction] 46.5 % 35.0 - 47.0 % [employer] Work Phone: [phone] Hemoglobin.gastroint estinal spec [...] Work Phone: [phone] Test Performed by [facility], [address] [place] [address] [facility] Work Phone: Hemogram w/ Autodiffon 08-11 Abs Baso Cnt 0.0 10*3/uL Normal 0.0-0.2 [facility] Comment on above: Performed By: #### S AL33, BMP3, ETOH4, HEMDF, ACET4 #### [address] [address] Abs Neutrophile Cnt 6.7 10*3/uL Normal 1.8-7.0 [facility] Comment on above: Performed By: #### S AL33, BMP3, ETOH4, HEMDF, ACET4 #### [address] [address] Basophils/100 WBC (Bld) 0.2 % Normal 0.0-2.0 [facility] Comment on above: Performed By: #### S AL33, BMP3, ETOH4, HEMDF, ACET4 #### [address] [address] Eosinophils (Bld) [#/Vol] 0.0 10*3/uL Normal 0.0-0.5 [facility] Comment on above: Performed By: #### S AL33, BMP3, ETOH4, HEMDF, ACET4 #### [address] [address] Eosinophils/100 WBC (Bld) 0.1 % Low 1.0-6.0 [facility] Comment on above: Performed By: #### S AL33, BMP3, ETOH4, HEMDF, ACET4 #### [address] [address] Erythrocyte distribution width (RBC) [Ratio] 13.3 % Normal 11.5-14.5 [facility] Comment on above: Performed By: #### S AL33, BMP3, ETOH4, HEMDF, ACET4 #### [address] [address] Granulocytes/100 WBC (Bld) 79.3 % Normal 40.0-80.0 [facility] Comment on above: Performed By: #### S AL33, BMP3, ETOH4, HEMDF, ACET4 #### [place] [address] [address] [place], [place] Hematocrit (Bld) [Volume fraction] 46.5 % Normal 35.0-47.0 [facility] Comment on above: Performed By: #### S AL33, BMP3, ETOH4, HEMDF, ACET4 #### [place] [address] [place], [place] Hemoglobin (Bld) [Mass/Vol] 15.4 g/dL Normal 11.7-16.0 [facility] Comment on above: Performed By: #### S AL33, BMP3, ETOH4, HEMDF, ACET4 #### [address] Lymphocytes (Bld) [#/Vol] 1.4 10*3/uL Normal 1.0-4.3 [facility] Comment on above: Performed By: #### S AL33, BMP3, ETOH4, HEMDF, ACET4 #### [place] [address] [place], [place] Lymphocytes/100 WBC (Bld) 16.9 % Low 20.0-40.0 [facility] Comment on above: Performed By: #### S AL33, BMP3, ETOH4, HEMDF, ACET4 #### [place] [address] [place] MCH (RBC) [Entitic mass] 30.4 pg Normal 26.0-34.0 [facility] Comment on above: Performed By: #### S AL33, BMP3, ETOH4, HEMDF, ACET4 #### [address] MCHC 33.1 % Normal 32.0-36.0 [facility] Comment on above: Performed By: #### S AL33, BMP3, ETOH4, HEMDF, ACET4 #### [address] MCV (RBC) [Entitic vol] 91.9 fL Normal 79.0-98.0 [facility] Comment on above: Performed By: #### S AL33, BMP3, ETOH4, HEMDF, ACET4 #### [place] [address] [place], [place] Monocytes (Bld) [#/Vol] 0.3 10*3/uL Normal 0.0-0.8 [facility] Comment on above: Performed By: #### S AL33, BMP3, ETOH4, HEMDF, ACET4 #### [place] [address] [address] [place], [place] Monocytes/100 WBC (Bld) 3.5 % Normal 2.0-10.0 [facility] Comment on above: Performed By: #### S AL33, BMP3, ETOH4, HEMDF, ACET4 #### [place] [address] [place], [place] Platelet mean volume (Bld) [Entitic vol] 8.7 fL Normal 7.4-10.4 [facility] Comment on above: Performed By: #### S AL33, BMP3, ETOH4, HEMDF, ACET4 #### [address] Platelets (Bld) [#/Vol] 309 10*3/uL Normal 140-440 [facility] Comment on above: Performed By: #### S AL33, BMP3, ETOH4, HEMDF, ACET4 #### [place] [address] [place], [place] RBC (Bld) [#/Vol] 5.06 10*6/uL Normal 3.80-5.20 [facility] Comment on above: Performed By: #### S AL33, BMP3, ETOH4, HEMDF, ACET4 #### [address] WBC (Bld) [#/Vol] 8.4 10*3/uL Normal 3.6-10.7 [facility] Comment on above: Performed By: #### S AL33, BMP3, ETOH4, HEMDF, ACET4 #### [address] [place] [place] [address] No Panel InformationOrdered By: Pamela Lopez on 08-11-2020 Test Performed by [facility], [address] [place] [address] [employer] Work Phone: Interpretation and review of laboratory results Abnormal [facility] Work Phone: Test Performed by [facility], [address] [place] [address] [facility] Work Phone: POC UrineOrdered B y: Pamela Lopez on 08-11-2020 Beta HCG ( test) Ql (U) Negative Negative [facility] Work Phone: Beta HCG ( test) Ql (U) [id number] [facility] Work Phone: Interpretation and review of laboratory results Normal [facility] Work Phone: Negative QC Pass/Fail Pass [facility] Work Phone: Positive QC Pass/Fail Pass [employer] Work Phone: SALICYLATE LEVELOrdered By: Pamela Lopez on 08-11-2020 Salicylate Lvl <1.0 0.0 - 20.0 mg/dL [employer] Work Phone: [phone] Test Performed by [facility], [address] [place] [address] [facility] Work Phone: Salicylateson 08-11-2020 Salicylates < 1.0 Normal 0.0-20.0 [facility] Comment on above: Performed By: #### S AL33, BMP3, ETOH4, HEMDF, ACET4 #### Other [employer] [address] [place] [phone] UrinalysisOrdered By: Katie Lopez on 08-11-2020 Bilirubin Urine Negative Negative mg/dL [employer] Work Phone: Comment on above: . Glucose, Ur Normal Normal (<70) mg/dL [facility] Work Phone: Comment on above: . Ketones Ql (U) 10 mg/dL Abnormal Negative [facility] Work Phone: Comment on above: . LEUKOCYTES, UA Negative Negative Maggie/uL [facility] Work Phone: Comment on above: . Nitrite, Urine Negative Negative NA [facility] Work Phone: [phone] Comment on above: . pH (U) 8.0 [pH] [facility] Work Phone: [phone] Comment on above: . Specific [place], Urine 1.013 [facility] Work Phone: [phone] Comment on above: . Urine Drug ScreenOrdered By: Pamela Lopez on 08-11-2020 Amphetamines, urine Negative [employer] Work Phone: Barbiturates, Ur Negative [facility] Work Phone: Benzodiazepine Ur Qual Negative [employer] Work Phone: Cocaine Metabolites, Ur Negative [employer] Work Phone: Methadone, Urine Negative [facility] Work Phone: Opiates, Urine Negative [facility] Work Phone: Oxycodone Screen, Ur Negative [facility] Work Phone: PCP, Urine Negative [employer] Work Phone: Comment on above: The expected [...] CNOV Office Visit (OBGMEM ) SKIPLISA Marko ([id number]) 1980 F Date Time Provider Department 07/10/20 [...] by VINCE OGDEN PA-C on 07/10/20 Normal [facility] ED Discharge Educationon ED Discharge [...] your doctor if you can take an [id number]-[id number] medicine. To prevent cellulitis in the future [...] Where can you learn more? Go to [email or web address].[email or web address]/ patientEd Enter X309 in the search box to learn more about Cellulitis: Care Instructions. Current as of: February 18, 2019 Content Version: 12.5; ? [employer]. Care instructions adapted under license by your healthcare professional. If you have questions about a medical condition or this instruction, always ask your healthcare professional. [employer] disclaims any warranty or liability for your [...] Where can you learn more? Go to https://www.[email or web address]/ patientEd Enter E242 in the search box to learn more about Opioid Withdrawal: Care Instructions. Current as of: December 10, 2018 Content Version: 125; ? [employer]. Care instructions adapted under license by your healthcare professional. If you have questions about a medical condition or this instruction, always ask your healthcare professional. [employer] disclaims any warranty or liability for your [...] embarrassed or ashamed. 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 Remember that [...] Where can you learn more? Go to https://www.[email or web address]/ patientEd Enter X744 in the search box to learn more about Learning About Opioid Use Disorder. Current as of: December 10, 2018 Content Version: 12.5; ? [employer]. Care instructions adapted under license by your healthcare professional. If you have questions about a medical condition or this instruction, always ask your healthcare professional. [employer] disclaims any warranty or liability for your use of this information. Normal [facility] ED Physician Reporton 2020 ED Physician Report [...] 4 PM today to be seen in [place] for her heroin withdrawal. The last Suboxone [...] be seen where she is scheduled in [place]. She will return here immediately for worsening of symptoms or change in her condition.. 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 Disposition: ED Discharge to Home was placed.(06/26/2020 12:34:00 EST, Constant Order). Prescriptions: Launch prescriptions Pharmacy: promethazine 25 mg oral tablet (Prescribe): 25 mg = 1 tab(s), ORAL, [id number], for 2 days, PRN: for nausea/vomiting, 8 tabs, 0 Refill(s) Augmentin 875 mg-125 mg oral tablet (Prescribe): 1 tabs, ORAL, [id number], for 10 days, 20 tabs, 0 Refill(s). [...] Regarding prescription, Patient indicated understanding of instructions. [facility] ED Progress Noteon ED Progress Note [...] AND WILL FOLLOW UP WITH PCP. Normal [facility] ELVER SOUMYA DIGITAL SCREEN MADHAVI Saucedaseu 01-21-2019 Patient Name: LISA CHAUDHRY ---Mammography--- Exam Date/Time 01/21/2019 09:13:32 EDT Exam MG Breast Tomosynthesis BI Scr Ordering Physician MD MEIR, SHANTE OOSRIO Accession Number [id number] CPT4 Codes 78376 (MG Breast Tomosynthesis Scr Bl), 17076 (MG MAMMO 2D SCREENING) Reason For Exam [...] images: BB's = Nipples; skin lesions Open [place] = Palpable Line = Scar 2D digital [...] 01/21/2019 9:57 am Signed by: MD HALIE, [facility] Ulisses, [facility] Incoming Radiology Results From [facility] - 01/21/2019 11:18 AM EDT Patient Name: LISA CHAUDHRY ---Mammography--- Exam Date/Time 01/21/2019 09:13:32 EDT Exam MG Breast Tomosynthesis BI Scr Ordering Physician MD MEIR, SHANTE OSORIO Accession Number [id number] CPT4 Codes 39452 (MG Breast Tomosynthesis Scr Bl), 14292 (MG MAMMO 2D SCREENING) Reason For Exam [...] images: BB's = Nipples; skin lesions Open [place] = Palpable Line = Scar 2D digital [...] 9:57 am Signed by: MD HALIE, KARIME [place], [place] MG Breast Tomosynthesis Scr Blon 01-21-2019 MG Breast Tomosynthesis Scr Bl Patient Name: LISA CHAUDHRY Mammography Exam Date/Time 01/21/2019 09:13:32 EDT Exam MG Breast Tomosynthesis BI Scr Ordering Physician MD MEIR, SHANTE OSOIRO Accession Number [id number] CPT4 Codes 65839 (MG Breast Tomosynthesis Scr Bl), 82631 (MG MAMMO 2D SCREENING) Reason For Exam [...] images: BB's = Nipples; skin lesions Open [place] = Palpable Line = Scar 2D digital [...] Signed by: MD AMBROSE JENNIFER R Normal [facility] Comp Metabolic Panelon 01-12 ALT [Catalytic activity/Vol] 48 U/L Normal 13-69 [facility] Comment on above: Performed By: #### T SH5, HEMDF, LIPD2, CMP3 #### [facility] [address] [place] [address] Calcium [Mass/Vol] 9.7 mg/dL Normal 8.4-10.4 [facility] Comment on above: Performed By: #### T SH5, HEMDF, LIPD2, CMP3 #### [facility] [address] [place] [address] ALP [Catalytic activity/Vol] 80 U/L Normal 38-126 [facility] Comment on above: Performed By: #### T SH5, HEMDF, LIPD2, CMP3 #### [facility] [address] [place] [address] Anion gap [Moles/Vol] 7 Normal [facility] Comment on above: Performed By: #### T SH5, HEMDF, LIPD2, CMP3 #### [facility] [address] [place] [address] AST [Catalytic activity/Vol] 37 U/L Normal 15-46 [facility] Comment on above: Performed By: #### T SH5, HEMDF, LIPD2, CMP3 #### [facility] [address] [address] Bilirubin [Mass/Vol] 0.3 mg/dL Normal 0.2-1.3 [facility] Comment on above: Performed By: #### T SH5, HEMDF, LIPD2, CMP3 #### [facility] [address] [place] [address] CO2 [Moles/Vol] 26 mmol/L Normal 22-30 [facility] Comment on above: Performed By: #### T SH5, HEMDF, LIPD2, CMP3 #### [facility] [address] [place] [address] Glucose [Mass/Vol] 90 mg/dL Normal 70-100 [facility] Comment on above: Performed By: #### T SH5, HEMDF, LIPD2, CMP3 #### [facility] [address] [place] [address] Protein [Mass/Vol] 7.5 g/dL Normal 6.3-8.2 [facility] Comment on above: Performed By: #### T SH5, HEMDF, LIPD2, CMP3 #### [facility] [address] [place] [address] Urea nitrogen [Mass/Vol] 14 mg/dL Normal 7-20 [facility] Comment on above: Performed By: #### T SH5, HEMDF, LIPD2, CMP3 #### [facility] [address] [place] [address] Creatinine [Mass/Vol] 0.73 mg/dL Normal 0.52-1.25 [facility] Comment on above: Performed By: #### T SH5, HEMDF, LIPD2, CMP3 #### [facility] [address] [place] [address] GFR/1.73 sq M predicted among blacks MDRD (S/P/Bld) [Vol rate/Area] mL/min/{1.73_m2} Normal >60 [facility] Comment on above: Performed By: #### T SH5, HEMDF, LIPD2, CMP3 #### [facility] [address] [place] [address] GFR/1.73 sq M predicted among non-blacks MDRD (S/P/Bld) [Vol rate/Area] mL/min/{1.73_m2} Normal >60 [facility] Comment on above: Result Comment: Sour ce- MDRD equation with creatinine calibration to IDMS(NKDEP) eGFR not recommended for drug dose adjustment Performed By: #### T SH5, HEMDF, LIPD2, CMP3 #### [facility] [address] [place] [address] Albumin [Mass/Vol] 4.0 g/dL Normal 3.5-5.0 [facility] Comment on above: Performed By: #### T SH5, HEMDF, LIPD2, CMP3 #### [facility] [address] [place] [address] Chloride [Moles/Vol] 109 mmol/L High 98-107 [facility] Comment on above: Performed By: #### T SH5, HEMDF, LIPD2, CMP3 #### [facility] [address] [place] [address] Potassium [Moles/Vol] 4.3 mmol/L Normal 3.5-5.1 [facility] Comment on above: Performed By: #### T SH5, HEMDF, LIPD2, CMP3 #### [facility] [address] [place] [address] Sodium [Moles/Vol] 142 mmol/L Normal 135-145 [facility] Comment on above: Performed By: #### T SH5, HEMDF, LIPD2, CMP3 #### [facility] [address] [place] [address] HIV 1,2 Ab; p24 Agon 019 HIV 1,2 Ab; p24 Ag NONREACTIVE Normal Nonreactive [facility] Comment on above: Result Comment: Resu [...] By: #### H IV4, RPR, HBSAG #### [facility] [address] [place] [address] Hemogram w/ Autodiffon 01-12 Abs Baso Cnt 0.1 10*3/uL Normal 0.0-0.2 [facility] Comment on above: Performed By: #### T SH5, HEMDF, LIPD2, CMP3 #### [facility] [address] [place] [address] Abs Neutrophile Cnt 3.4 10*3/uL Normal 1.8-7.0 [facility] Comment on above: Performed By: #### T SH5, HEMDF, LIPD2, CMP3 #### [facility] [address] [place] [address] Basophils/100 WBC (Bld) 0.6 % Normal 0.0-2.0 [facility] Comment on above: Performed By: #### T SH5, HEMDF, LIPD2, CMP3 #### [facility] [address] [place] [address] Eosinophils (Bld) [#/Vol] 0.4 10*3/uL Normal 0.0-0.5 [facility] Comment on above: Performed By: #### T SH5, HEMDF, LIPD2, CMP3 #### [facility] [address] [place] [address] Eosinophils/100 WBC (Bld) 5.5 % Normal 1.0-6.0 [facility] Comment on above: Performed By: #### T SH5, HEMDF, LIPD2, CMP3 #### [facility] [address] [place] [address] Erythrocyte distribution width (RBC) [Ratio] 13.4 % Normal 11.5-14.5 [facility] Comment on above: Performed By: #### T SH5, HEMDF, LIPD2, CMP3 #### [facility] [address] [place] [address] Granulocytes/100 WBC (Bld) 43.0 % Normal 40.0-80.0 [facility] Comment on above: Performed By: #### T SH5, HEMDF, LIPD2, CMP3 #### [facility] [address] [place] [address] Hematocrit (Bld) [Volume fraction] 43.4 % Normal 35.0-47.0 [facility] Comment on above: Performed By: #### T SH5, HEMDF, LIPD2, CMP3 #### [facility] [address] [place] [address] Hemoglobin (Bld) [Mass/Vol] 15.2 g/dL Normal 11.7-16.0 [facility] Comment on above: Performed By: #### T SH5, HEMDF, LIPD2, CMP3 #### [facility] [address] [place] [address] Lymphocytes (Bld) [#/Vol] 3.2 10*3/uL Normal 1.0-4.3 [facility] Comment on above: Performed By: #### T SH5, HEMDF, LIPD2, CMP3 #### [facility] [address] [place] [address] Lymphocytes/100 WBC (Bld) 40.5 % High 20.0-40.0 [facility] Comment on above: Performed By: #### T SH5, HEMDF, LIPD2, CMP3 #### [facility] [address] [place] [address] MCH (RBC) [Entitic mass] 32.9 pg Normal 26.0-34.0 [facility] Comment on above: Performed By: #### T SH5, HEMDF, LIPD2, CMP3 #### [facility] [address] [place] [address] MCHC (RBC) [Mass/Vol] 35.0 % Normal 32.0-36.0 [facility] Comment on above: Performed By: #### T SH5, HEMDF, LIPD2, CMP3 #### [facility] [address] [place] [address] MCV (RBC) [Entitic vol] 94.0 fL Normal 79.0-98.0 [facility] Comment on above: Performed By: #### T SH5, HEMDF, LIPD2, CMP3 #### [facility] [address] [place] [address] Monocytes (Bld) [#/Vol] 0.8 10*3/uL Normal 0.0-0.8 [facility] Comment on above: Performed By: #### T SH5, HEMDF, LIPD2, CMP3 #### [facility] [address] [place] [address] Monocytes/100 WBC (Bld) 10.4 % High 2.0-10.0 [facility] Comment on above: Performed By: #### T SH5, HEMDF, LIPD2, CMP3 #### [facility] [address] [place] [address] Platelet mean volume (Bld) [Entitic vol] 8.5 fL Normal 7.4-10.4 [facility] Comment on above: Performed By: #### T SH5, HEMDF, LIPD2, CMP3 #### [facility] [address] [place] [address] Platelets (Bld) [#/Vol] 285 10*3/uL Normal 140-440 [facility] Comment on above: Performed By: #### T SH5, HEMDF, LIPD2, CMP3 #### [facility] [address] [place] [address] RBC (Bld) [#/Vol] 4.61 10*6/uL Normal 3.80-5.20 [facility] Comment on above: Performed By: #### T SH5, HEMDF, LIPD2, CMP3 #### [facility] [address] [place] [address] WBC (Bld) [#/Vol] 8.0 10*3/uL Normal 3.6-10.7 [facility] Comment on above: Performed By: #### T SH5, HEMDF, LIPD2, CMP3 #### [facility] [address] [place] [address] Hep B Surface Agon 9 Hep B Surface Ag NOT DETECTED Normal Not-Detected [facility] Comment on above: Performed By: #### H IV4, RPR, HBSAG #### [facility] [address] [place] [address] Lipid Panelon 01-12-2019 Cholesterol in HDL [Mass/Vol] 48 mg/dL Normal 40-60 [facility] Comment on above: Performed By: #### T SH5, HEMDF, LIPD2, CMP3 #### [facility] [address] [place] [address] Cholesterol.total/Ch olesterol in HDL [Mass ratio] 4 Normal [facility] Comment on above: Result Comment: Ref Range: < 3 Low Risk for CHD 3-6 Mod Risk for CHD > 6 High Risk for CHD Performed By: #### T SH5, HEMDF, LIPD2, CMP3 #### [facility] [address] [place] [address] Protein [Mass/Vol] 145 mg/dL Abnormal <100 [facility] Comment on above: Performed By: #### T SH5, HEMDF, LIPD2, CMP3 #### [facility] [address] [place] [address] Triglyceride [Mass/Vol] 93 mg/dL Normal <150 [facility] Comment on above: Performed By: #### T SH5, HEMDF, LIPD2, CMP3 #### [facility] [address] [place] [address] Cholesterol [Mass/Vol] 212 mg/dL Abnormal < 200 [facility] Comment on above: Performed By: #### T SH5, HEMDF, LIPD2, CMP3 #### [facility] [address] [place] [address] RPR, Qualon 01-12-2019 RPR, Qual NONREACTIVE Normal Non-Reactive [facility] Comment on above: Performed By: #### H IV4, RPR, HBSAG #### [address] [id number] Thyroid Stim. Hormoneon 12-21 Thyroid Stim. Hormone 0.677 u[IU]/mL Normal 0.465-4.680 [facility] Comment on above: Performed By: #### T SH5, HEMDF, LIPD2, CMP3 #### [facility] [address] [place] [address] XR ABDOMEN (2 VIEWS)on 11-27 Patient Name: LISA CHAUDHRY ---Diagnostic Radiology--- Exam Date/Time 11/27/2018 12:00:29 EDT Exam CR Abdomen 2 Views Complete Ordering Physician YANETH GRIGGS HEATHER M Accession Number [id number] CPT4 Codes 20294 () Reason For Exam flat plate abd; [...] NICHOLAS Transcribed Date and Time: 11/27/2018 2:24 [place], [place] - 11/27/2018 2:28 PM EDT Patient Name: LISA CHAUDHRY ---Diagnostic Radiology--- Exam Date/Time 11/27/2018 12:00:29 EDT Exam CR Abdomen 2 Views Complete Ordering Physician YANETH GRIGGS HEATHER M Accession Number [id number] CPT4 Codes 84658 () Reason For Exam flat plate abd; [...] NICHOLAS Transcribed Date and Time: 11/27/2018 2:24 [place], [place] DUPLEX EXTREMITY VEINS CMPLT /BILATERALon 12-09-2017 [...] its analytical performancecharacteristics have been determined by [facility] [facility], [place], [place]. It hasnot been cleared or approved by the U.S. Food and DrugAdministration. This assay has been validated pursuantto the CLIA regulations and is used for clinicalpurposes.For more information on this test, go [email or web address]/HCVGenotyping Performed By: #### C MP ####[facility] [id number] HCV FIBROSUREon 04-29-2017 ALPHA 2 MACROGLOB. 198 mg/dL Normal 110-276 [facility] Comment on above: Performed By: #### C MP ####[facility] [id number] ALT[SGPT] P5P 31 IU/L Normal 0-40 [facility] Comment on above: Performed By: #### C MP ####[facility] [id number] ANALYSIS SEE BELOW Normal [facility] Comment on above: Performed By: #### C MP ####[place] [id number] [id number] Apolipoprotein A-I mass conc 166 mg/dL Normal 116-209 [facility] Comment on above: Performed By: #### C MP ####[facility] [place] [address] Bilirubin mass conc 0.2 mg/dL Normal 0.0-1.2 [facility] Comment on above: Performed By: #### C MP ####[facility] [id number] COMMENT COMMENT Normal [facility] Comment on above: Result Comment: This test was developed and its performance characteristics determinedby [facility]. It has not been cleared or approved by the Food and DrugAdministration. The FDA has determined that such clearance orapproval is not necessary.For questions regarding this report please contact customer serviceat . Performed By: #### C MP ####[facility] [id number] FIBROSIS SCORE 0.07 Normal 0.00-0.21 [facility] Comment on above: Performed By: #### C MP ####[facility] [place] [address] FIBROSIS SCORING COMMENT Normal [facility] [...] - Cirrhosis Performed By: #### C MP ####[facility] [place] [address] FIBROSIS STAGE COMMENT Normal [facility] Comment on above: Result Comment: F0 - No fibrosis Performed By: #### C MP ####[facility] [place] [address] GGT 29 IU/L Normal 0-60 [facility] Comment on above: Performed By: #### C MP ####[facility] [place] [address] HAPTOGLOBIN 82 mg/dL Normal 34-200 [facility] Comment on above: Performed By: #### C MP ####[facility] [place] [address] INTERPRETATION COMMENT Normal [facility] Comment on above: Result Comment: El titative results of 6 biochemical tests are analyzed usinga computational algorithm to provide a quantitative surrogatemarker (0.0-1.0) for liver fibrosis (METAVIR F0-F4) and fornecroinflammatory activity (METAVIR A0-A3). Performed By: #### C MP ####[facility] [id number] LIMITATIONS COMMENT Normal [facility] [...] the liver. Performed By: #### C MP ####[place] [id number] [place] [address] NECROINFLAM.ACT.GRAD E A0-No activity Normal [facility] Comment on above: Performed By: #### C MP ####[place] [id number] [place] [address] NECROINFLAM.ACT.SCOR E 0.11 Normal 0.00-0.17 [facility] Comment on above: Performed By: #### C MP ####[place] [id number] [place] [address] NECROINFLAMM.ACT.SCO RING COMMENT Normal [facility] [...] Severe activity Performed By: #### C MP ####[place] [id number] [place] [id number] HCV PCR WITH GENOTYPE REFLEX on 04-28-2017 HCV RNA, PCR 8710 IU/mL Abnormal [facility] Comment on above: Result Comment: REF VALUENEGATIVE Performed By: #### H CVG1 ####[place] [id number] [place] [id number] HCV RNA,PCR, LOG 3.94 log10 IU/mL Abnormal [facility] Comment on above: Result Comment: HCV RNA BY PCR (VIRAL LOAD) IS PERFORMEDUSING THE [employer] FRANSISCO AMPLIPREP/FRANSISCO TAQMANHCV TEST. THIS IS A TEST FOR THE QUANTITATIONOF HEPATITIS C VIRAL RNA IN HUMAN PLASMA ORSERUM USING THE AMPLIPREP INSTRUMENT FORAUTOMATED SPECIMEN PROCESSING AND Phyzios ANALYZER FOR AUTOMATED AMPLIFICATIONAND DETECTION. SPECIMENS CONTAINING HCVGENOTYPES 1-6 HAVE BEEN VALIDATED FORQUANTITATION IN THE ASSAY. THE TEST CANQUANTITATE 15 TO 100,000,000 IU/ML OF HCV RNA.THIS TEST IS STANDARDIZED AGAINST THE [facility] INTERNATIONAL STANDARD FOR HEPATITIS CVIRUS RNA FOR NUCLEIC ACID AMPLIFICATIONTECHNOLOGY ASSAYS ([facility] CODE 96/790).THE TEST IS APPROVED BY THE [...] BY THE MOLECULAR DIAGNOSTICSLABORATORY, [facility]. Performed By: #### H CVG1 ####[facility] [place] [address] ALCOHOL,URINEon 04-25-2017 ALCOHOL,URINE <10 Normal <20 [facility] Comment on above: Result Comment: Urin es containing sugars and contaminated with microorganisms may yield afalse positive result due to fermentation of sugar to alcohol. Performed By: #### A LCU ####[facility] [place] [address] CBCon 04-25-2017 Erythrocyte distribution width Auto Ratio (RBC) 13.1 % Normal 11.5 - 14.5 [facility] Comment on above: Performed By: #### C BC ####[facility] [place] [address] Hematocrit Auto Volume Fraction (Bld) 48.5 % High 36.0 - 46.0 [facility] Comment on above: Performed By: #### C BC ####[facility] [place] [address] Hemoglobin mass conc (Bld) 16.1 g/dL High 12.0 - 16.0 [facility] Comment on above: Performed By: #### C BC ####[facility] [place] [address] MCHC Auto mass conc (RBC) 33.2 g/dL Normal 32.0 - 36.0 [facility] Comment on above: Performed By: #### C BC ####[facility] [place] [address] MCV Auto Entitic volume (RBC) 98 fL Normal 80 - 100 [facility] Comment on above: Performed By: #### C BC ####[facility] [place] [address] Nucleated RBC/100 WBC Ratio (Bld) 0.0 /100 WBC Normal 0.0-0.0 [facility] Comment on above: Performed By: #### C BC ####[facility] [place] [address] Platelets Auto #/vol (Bld) 245 10*3/uL Normal 150 - 450 [facility] Comment on above: Performed By: #### C BC ####[facility] [place] [address] RBC Auto #/vol (Bld) 4.94 x10E12/L Normal 4.00 - 5.20 [facility] Comment on above: Performed By: #### C BC ####[facility] [place] [address] WBC Auto #/vol (Bld) 7.2 10*3/uL Normal 4.4 - 11.3 [facility] Comment on above: Performed By: #### C BC ####[facility] [place] [address] COMPREHENSIVE PANELon 2017 Albumin mass conc 4.9 g/dL Normal 3.4 - 5.0 [facility] Comment on above: Performed By: #### C MP ####[facility] [place] [address] ALP enzyme act/vol 66 U/L Normal 33 - 110 [facility] Comment on above: Performed By: #### C MP ####[facility] [place] [address] ALT enzyme act/vol 26 U/L Normal 7 - 45 [facility] Comment on above: Result Comment: Cat ents treated with Sulfasalazine may generate falsely decreased results for ALT. Performed By: #### C MP ####[facility] [place] [address] Anion gap 3 molar conc 11 mmol/L Normal 10 - 20 [facility] Comment on above: Performed By: #### C MP ####[facility] [place] [address] AST enzyme act/vol 24 U/L Normal 9 - 39 [facility] Comment on above: Performed By: #### C MP ####[facility] [place] [address] Bilirubin mass conc 0.3 mg/dL Normal 0.0 - 1.2 [facility] Comment on above: Performed By: #### C MP ####[facility] [place] [address] Calcium mass conc 10.7 mg/dL High 8.6 - 10.6 [facility] Comment on above: Performed By: #### C MP ####[facility] [place] [address] Chloride molar conc 105 mmol/L Normal 98 - 107 [facility] Comment on above: Performed By: #### C MP ####[facility] [place] [address] Creatinine mass conc 0.68 mg/dL Normal 0.50 - 1.05 [facility] Comment on above: Performed By: #### C MP ####[facility] [place] [address] GFR- AM. >60 Normal >60 [facility] Comment on above: Result Comment: CALC ULATIONS OF ESTIMATED GFR ARE PERFORMED USING THE MDRD STUDY EQUATION FOR THE IDMS-TRACEABLE CREATININE METHODS. CLIN CHEM 2007;53:766-72 Performed By: #### C MP ####[facility] [place] [address] GFR-NON AM. >60 Normal >60 [facility] Comment on above: Performed By: #### C MP ####[facility] [place] [address] Glucose mass conc 80 mg/dL Normal 74 - 99 [facility] Comment on above: Performed By: #### C MP ####[facility] [place] [address] HCO3 molar conc (Bld) 28 mmol/L Normal 21 - 32 [facility] Comment on above: Performed By: #### C MP ####[facility] [place] [address] Potassium molar conc 3.9 mmol/L Normal 3.5 - 5.3 [facility] Comment on above: Performed By: #### C MP ####[facility] [place] [address] Protein mass conc 8.7 g/dL High 6.4 - 8.2 [facility] Comment on above: Performed By: #### C MP ####[facility] [place] [address] Sodium molar conc 140 mmol/L Normal 136 - 145 [facility] Comment on above: Performed By: #### C MP ####[facility] [place] [address] Urea nitrogen mass conc 12 mg/dL Normal 6 - 23 [facility] Comment on above: Performed By: #### C MP ####[facility] [place] [address] DRUG SCREEN,URINEon 04-25-19 18 AMPHETAMINES Negative Normal NEGATIVE [facility] Comment on above: Result Comment: CUTO FF LEVEL: 500 NG/ML Rand Butter drug: d-Methamphetamine Cross-reactivity has been reported with high concentrations of the following drugs: buproprion, chloroquine, chlorpromazine, ephedrine, mephentermine, fenfluramine, phentermine, phenylpropanolamine, pseudoephedrine, and propranolol. Performed By: #### D RUG3 ####[facility] [place] [address] BENZODIAZEPINES Negative Normal NEGATIVE [facility] Comment on above: Result Comment: CUTO FF LEVEL:200 NG/ML Rand Butter drug: Lormetazepam Performed By: #### D RUG3 ####[facility] [place] [address] CANNABINOIDS Negative Normal NEGATIVE [facility] Comment on above: Result Comment: CUTO FF LEVEL:50 NG/ML Rand Butter dru75-wrs--THC-9carboxylic acid Performed By: #### D RUG3 ####[facility] [place] [address] COCAINE METABOLITE Negative Normal NEGATIVE [facility] Comment on above: Result Comment: CUTO FF LEVEL: 150 NG/ML Rand Butter drug: Benzoylecgonine(cocaine metabolite) Performed By: #### D RUG3 ####[facility] [place] [address] DRUG SCREEN COMMENT SEE BELOW Normal [facility] Comment on above: Result Comment: POSI TIVE CUTOFFS ARE BASED ON REACTIVITY WITH A AUTOMOBILE TRAVEL CLUB COUNSELOR MEMBER OF DRUG CLASS. MEMBERS OF THE [...] TESTING OR PATHOLOGIST CONSULTATION, CALL LABORATORY AT [phone]. Performed By: #### D RUG3 ####[facility] [place] [address] METHADONE Negative Normal NEGATIVE [facility] Comment on above: Result Comment: CUTO FF LEVEL: 150 NG/ML Rand Butter drug: Methadone The metabolite F-odlpk-bqlhcssoldgjqr (LAAM) is not detected by this method in concentrations that would be found in the urine of patients on LAAM therapy. Performed By: #### D RUG3 ####[facility] [id number] OPIATES Negative Normal NEGATIVE [facility] Comment on above: Result Comment: CUTO FF LEVEL: 300 NG/ML Rand Butter Drug: Morphine This assay shows poor reactivity with synthetic opioids such as oxycodone and fentanyl. Cross-reactivity has been reported at high doses of meperidine. Performed By: #### D RUG3 ####[facility] [id number] OXYCODONE Negative Normal NEGATIVE [facility] Comment on above: Result Comment: CUTO FF LEVEL:100 NG/ML Rand Butter drug: Oxycodone This test will accurately detect both oxycodone and oxymorphone. Performed By: #### D RUG3 ####[facility] [place] [address] PCP Negative Normal NEGATIVE [facility] Comment on above: Result Comment: CUTO FF LEVEL: 25 NG/ML Rand Butter drug: Phencyclidine(PCP) Cross-reactivity has been reported with dextromethorphan. Performed By: #### D RUG3 ####[facility] [id number] URINE BARBITURATES Negative Normal NEGATIVE [facility] Comment on above: Result Comment: CUTO FF LEVEL:200 NG/ML Rand Butter drug: Secobarbital Performed By: #### D RUG3 ####[facility] [id number] HEPATITIS A AB-TOTALon 04-25 HEPATITIS A AB-TOTAL NON-REACTIVE Normal NONREACTIVE [facility] Comment on above: Result Comment: Cat ents receiving more than 5 mg/day of biotin may have interference in test results. A sample should be taken no sooner than eight hours after previous dose. Contact [phone] for additional information. Performed By: #### H AVTO ####[facility] [place] [address] Lab Specimen Source Normal [facility] Comment on above: Performed By: #### H AVTO ####[facility] [place] [address] Performed By: #### H CVG1 ####[facility] [place] [address] Performed By: #### C MP ####[place] [id number] [place] [address] PT/INRon 04-25-2017 INR Coag RelTime (PPP) 1.0 {INR} Normal 0.9 - 1.1 [facility] Comment on above: Performed By: #### P TINR ####[place] [address] [place] [address] Prothrombin time (PT) Coag time (PPP) 10.9 s Normal 9.8 - 12.7 [facility] Comment on above: Performed By: #### P TINR ####[place] [address] [place] [address] HCV RNA BY PCR [VIRAL LOAD]o n 03-24-2017 HCV RNA, PCR 636865 IU/mL Abnormal [facility] Comment on above: Result Comment: REF VALUENEGATIVE Performed By: #### H CVPR ####[place] [address] [place] [address] HCV RNA,PCR, LOG 5.79 log10 IU/mL Abnormal [facility] Comment on above: Result Comment: HCV RNA BY PCR (VIRAL LOAD) IS PERFORMEDUSING THE [employer] FRANSISCO AMPLIPREP/FRANSISCO TAQMANHCV TEST. THIS IS A TEST FOR THE QUANTITATIONOF HEPATITIS C VIRAL RNA IN HUMAN PLASMA ORSERUM USING THE AMPLIPREP INSTRUMENT FORAUTOMATED SPECIMEN PROCESSING AND Phyzios ANALYZER FOR AUTOMATED AMPLIFICATIONAND DETECTION. SPECIMENS CONTAINING HCVGENOTYPES 1-6 HAVE BEEN VALIDATED FORQUANTITATION IN THE ASSAY. THE TEST CANQUANTITATE 15 TO 100,000,000 IU/ML OF HCV RNA.THIS TEST IS STANDARDIZED AGAINST THE [employer] INTERNATIONAL STANDARD FOR HEPATITIS CVIRUS RNA FOR NUCLEIC ACID AMPLIFICATIONTECHNOLOGY ASSAYS ([facility] CODE 96/790).THE TEST IS APPROVED BY THE [...] BY THE MOLECULAR DIAGNOSTICSLABORATORY, DE[facility]Y [facility]. Performed By: #### H CVPR ####[facility] [place] [address] CBC AND DIFFERENTIALon 03-22 % AUTOMATED IMMATURE GRAN 0.4 % Normal 0.0 - 0.9 [facility] Comment on above: Result Comment: Perc ent differential counts (%) should be interpreted in the context of the absolute cell counts (cells/L). Performed By: #### C BCDF ####[facility] [place] [address] % NEUTROPHIL 47.7 % Normal 40.0 - 80.0 [facility] Comment on above: Performed By: #### C BCDF ####[facility] [place] [address] Basophils/100 WBC Auto (Bld) 0.05 x10E9/L Normal 0.00 - 0.10 [facility] Comment on above: Performed By: #### C BCDF ####[facility] [place] [address] Basophils/100 WBC Auto (Bld) 0.6 % Normal 0.0 - 2.0 [facility] Comment on above: Performed By: #### C BCDF ####[facility] [place] [address] Eosinophils Auto #/vol (Bld) 0.33 10*3/uL Normal 0.00 - 0.70 [facility] Comment on above: Performed By: #### C BCDF ####[facility] [place] [address] Eosinophils/100 WBC Auto (Bld) 4.2 % Normal 0.0 - 6.0 [facility] Comment on above: Performed By: #### C BCDF ####[facility] [place] [address] Erythrocyte distribution width Auto Ratio (RBC) 13.6 % Normal 11.5 - 14.5 [facility] Comment on above: Performed By: #### C BCDF ####[facility] [place] [address] Hematocrit Auto Volume Fraction (Bld) 46.6 % High 36.0 - 46.0 [facility] Comment on above: Performed By: #### C BCDF ####[facility] [place] [address] Hemoglobin mass conc (Bld) 15.5 g/dL Normal 12.0 - 16.0 [facility] Comment on above: Performed By: #### C BCDF ####[facility] [place] [address] Lymphocytes Auto #/vol (Bld) 2.78 10*3/uL Normal 1.20 - 4.80 [facility] Comment on above: Performed By: #### C BCDF ####[facility] [place] [address] Lymphocytes/100 WBC Auto (Bld) 35.7 % Normal 13.0 - 44.0 [facility] Comment on above: Performed By: #### C BCDF ####[facility] [place] [address] MCHC Auto mass conc (RBC) 33.3 g/dL Normal 32.0 - 36.0 [facility] Comment on above: Performed By: #### C BCDF ####[facility] [place] [address] MCV Auto Entitic volume (RBC) 97 fL Normal 80 - 100 [facility] Comment on above: Performed By: #### C BCDF ####[facility] [place] [address] Monocytes Auto #/vol (Bld) 0.89 10*3/uL Normal 0.10 - 1.00 [facility] Comment on above: Performed By: #### C BCDF ####[facility] [place] [address] Monocytes/100 WBC Auto (Bld) 11.4 % High 2.0 - 10.0 [facility] Comment on above: Performed By: #### C BCDF ####[facility] [place] [address] Neutrophils Auto #/vol (Bld) 3.70 10*3/uL Normal 1.20 - 7.70 [facility] Comment on above: Performed By: #### C BCDF ####[facility] [place] [address] Nucleated RBC/100 WBC Ratio (Bld) 0.0 /100 WBC Normal 0.0-0.0 [facility] Comment on above: Performed By: #### C BCDF ####[facility] [place] [address] Platelets Auto #/vol (Bld) 266 10*3/uL Normal 150 - 450 [facility] Comment on above: Performed By: #### C BCDF ####[facility] [place] [address] RBC Auto #/vol (Bld) 4.78 x10E12/L Normal 4.00 - 5.20 [facility] - [facility] Comment on above: Performed By: #### C BCDF ####[facility] [place] [address] WBC Auto #/vol (Bld) 7.8 10*3/uL Normal 4.4 - 11.3 [facility] Comment on above: Performed By: #### C BCDF ####[facility] [place] [address] COMPREHENSIVE PANELon 2016 Albumin mass conc 4.1 g/dL Normal 3.4 - 5.0 [facility] Comment on above: Performed By: #### C MP ####[facility] [place] [address] ALP enzyme act/vol 60 U/L Normal 33 - 110 [facility] Comment on above: Performed By: #### C MP ####[facility] [place] [address] ALT enzyme act/vol 134 U/L High 7 - 45 [facility] Comment on above: Result Comment: Cat ents treated with Sulfasalazine may generate falsely decreased results for ALT. Performed By: #### C MP ####[facility] [place] [address] Anion gap 3 molar conc 11 mmol/L Normal 10 - 20 [facility] Comment on above: Performed By: #### C MP ####[facility] [place] [address] AST enzyme act/vol 78 U/L High 9 - 39 [facility] Comment on above: Performed By: #### C MP ####[facility] [place] [address] Bilirubin mass conc 0.4 mg/dL Normal 0.0 - 1.2 [facility] Comment on above: Performed By: #### C MP ####[facility] [place] [address] Calcium mass conc 9.5 mg/dL Normal 8.6 - 10.6 [facility] Comment on above: Performed By: #### C MP ####[facility] [place] [address] Chloride molar conc 106 mmol/L Normal 98 - 107 [facility] Comment on above: Performed By: #### C MP ####[facility] [place] [address] Creatinine mass conc 0.69 mg/dL Normal 0.50 - 1.05 [facility] Comment on above: Performed By: #### C MP ####[facility] [place] [address] GFR- AM. >60 Normal >60 [facility] Comment on above: Result Comment: CALC ULATIONS OF ESTIMATED GFR ARE PERFORMED USING THE MDRD STUDY EQUATION FOR THE IDMS-TRACEABLE CREATININE METHODS. CLIN CHEM 2007;53:766-72 Performed By: #### C MP ####[facility] [place] [address] GFR-NON AM. >60 Normal >60 [facility] Comment on above: Performed By: #### C MP ####[facility] [place] [address] Glucose mass conc 73 mg/dL Low 74 - 99 [facility] Comment on above: Performed By: #### C MP ####[facility] [place] [address] HCO3 molar conc (Bld) 26 mmol/L Normal 21 - 32 [facility] Comment on above: Performed By: #### C MP ####[facility] [place] [address] Potassium molar conc 4.1 mmol/L Normal 3.5 - 5.3 [facility] Comment on above: Performed By: #### C MP ####[facility] [place] [address] Protein mass conc 7.3 g/dL Normal 6.4 - 8.2 [facility] Comment on above: Performed By: #### C MP ####[facility] [place] [address] Sodium molar conc 139 mmol/L Normal 136 - 145 [facility] Comment on above: Performed By: #### C MP ####[facility] [place] [address] Urea nitrogen mass conc 13 mg/dL Normal 6 - 23 [facility] Comment on above: Performed By: #### C MP ####[facility] [place] [address] HCV RNA BY PCR [VIRAL LOAD]o n 03-21-2017 Lab Specimen Source Normal [facility] Comment on above: Performed By: #### H CVPR ####[facility] [place] [address] CASE MANAGEMon 01-15-2017 CASE MANAGEM HNO ID: [id number] thor: Lb Caal (Sw)Service: Social WorkAuthor Type: Social WorkerType: Care Mgt Progress NoteFiled: 01/15/2017 9:39 AMNote Text:BEHAVIORAL HEALTH SOCIAL WORK DISCHARGE NOTESERVICE DATE: 01/15/2017SERVICE TIME: 930amPATIENT'S DISCHARGE PLAN:Discharge Disposition Discharge Disposition: Home with Family/FriendPsychiatry Follow-Up Appointment Psychiatrist Name: Assessment with ErikaSpencerAgency: A-DAgency Name: [facility] Address and Phone#: [address] [place] [address] / / Znjukhotsfuv Date: 02/04/17ppointment Time: 3pm;arrive at 245pm to meet with AmandaAdditonal Instructions: Will see Kailee Argueta Nurse Practioner 02/14@ [facility] Information Additional Discharge Resources: (CRISISHOTLINE: )Patient/Rand Butter Agreeable With Discharge Plan: YesPatient/Rand Butter Given/Explained Medicare Discharge Notice (IMletter):Not ApplicableTRANSPORTATION ARRANGEMENTS:Car [...] want it.SIGNATURE: ASTER Golden PATIENT NAME: Lisa MarcanoerDATE: January 15, 2017 : 9:31 AM [facility] CNDSon 01-15-2017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 04-20-2024 End: 07-20-2024 Transcribe Orders Shante Worley MD Work Phone: [facility] Comment on above: Encounter for screen ing mammogram for malignant neoplasm of breast (Primary Dx) Start: 03-26-2024 End: 03-30-2024 ambulatory PHYSICIAN NO [facility] Start: 03-24-2024 Critical care ill/injured patient init 30-74 min Hiwot Hoover CNP Work Phone: [facility] Start: 03-24-2024 End: 03-27-2024 Evaluation and management of inpatient Clraence Wynn MD Work Phone: [facility] Start: 12-28-2023 End: 12-28-2023 Emergency department patient visit [facility] Facility:[facility] Start: 12-23-2023 End: 12-23-2023 Emergency department patient visit [facility] Work Phone: Comment on above: Adjustment disorder, unspecified type (Primary Dx) Start: 09-24-2023 End: 09-25-2023 Telephone encounter Shante Worley MD Work Phone: [facility]ne[facility] Start: 06-18-2023 ambulatory CHUCKY SELF [facility] Start: 06-16-2023 End: 06-19-2023 ambulatory MITCHELL HANNON Facility:[facility] Start: 06-16-2023 Emergency department patient visit Facility:[facility] Start: 12-12-2022 End: 12-12-2022 Office outpatient visit 10 minutes Shante Worley MD Work Phone: [facility] Comment on above: Abnormal uterine ble eding (Primary Dx); Cervical dysplasia Start: 12-05-2022 Telephone encounter Raquel GARCIA [facility] Clinical Communication Start: 11-04-2022 ambulatory [facility] Start: 11-04-2022 Patient encounter procedure Sammy Gomez RN [facility] Clinical Communication Start: 08-14-2022 End: 08-14-2022 Office outpatient visit 25 minutes Nieves Ron MD Work Phone: [facility] Comment on above: Abnormal uterine ble eding (AUB) (Primary Dx); Adnexal cyst Start: 07-31-2022 Non-patient / Non-visit DO Severo Hampton Work Phone: [facility] Start: 07-30-2022 End: 07-30-2022 ambulatory DO Konrad Hampton Work Phone: [facility] Work Phone: Start: 07-30-2022 End: 07-30-2022 Patient encounter procedure DO Konrad Hampton Work Phone: [facility]/Neurology Start: 07-26-2022 End: 07-26-2022 Postop follow up visit related to original px Shante Worley MD Work Phone: [facility] Comment on above: Abnormal uterine ble eding (AUB) (Primary Dx); Atypical endometrial cells on Pap smear; Severe dysplasia of cervix (WESTON III); HPV (human papilloma virus) infection Start: 07-10-2022 End: 07-10-2022 Subsequent hospital visit by physician Shante Worley MD Work Phone: [facility] Comment on above: Dysplasia of cervix uteri, unspecified Start: 07-03-2022 End: 07-03-2022 Patient encounter procedure DO Konrad Hampton Work Phone: [facility] Start: 06-28-2022 End: 06-28-2022 Office outpatient visit 15 minutes Shante Worley MD Work Phone: [facility] Comment on above: Abnormal uterine ble eding (AUB) (Primary Dx); Atypical endometrial cells on Pap smear; Severe dysplasia of cervix (WESTON III) Start: 06-20-2022 End: 06-20-2022 ambulatory [facility] Work Phone: Start: 06-20-2022 End: 06-20-2022 Patient encounter procedure [facility] Start: 06-11-2022 Telephone encounter Shante wheeler MD Work Phone: [facility] Comment on above: Results (Test result s) Start: 06-10-2022 Telephone encounter Shante wheeler MD Work Phone: [facility] Comment on above: Surgery Scheduling Start: 06-07-2022 End: 06-07-2022 Patient encounter procedure Shante Worley MD Work Phone: [facility] Comment on above: Pre-procedural labor atory examinations (Primary Dx); Abnormal uterine bleeding (AUB); Atypical endometrial cells on Pap smear; ASCUS with positive high risk HPV cervical Start: 06-07-2022 End: 06-07-2022 Patient encounter status Shante Worley MD Work Phone: [facility] Start: 05-06-2022 End: 05-06-2022 Patient encounter procedure [facility] Rm 1 [facility] Comment on above: Abnormal uterine ble eding (AUB) Start: 05-02-2022 End: 05-02-2022 Subsequent hospital visit by physician Shante Worley MD Work Phone: [facility] Comment on above: Encounter for screen ing mammogram for malignant neoplasm of breast Start: 04-24-2022 Telephone encounter Shante wheeler MD Work Phone: [facility] Comment on above: Surgery Scheduling Start: 04-23-2022 End: 04-23-2022 Office outpatient visit 15 minutes Shante Worley MD Work Phone: [facility] Comment on above: Abnormal uterine ble eding (Primary Dx); Severe dysplasia of cervix (WESTON III); Screening for cervical cancer; Encounter for screening mammogram for malignant neoplasm of breast Start: 12-19-2021 Office outpatient vi sit 15 minutes Elizabeth Tapia Work Phone: [facility] Work Phone: Start: 07-13-2021 Telephone encounter Elizabeth Tapia Work Phone: [facility]sm[facility]bf[facility]jmw-Fam in [facility] Work Phone: Start: 05-04-2021 Telephone encounter Elizabeth Tapia Work Phone: RA-Rmusxdhkoxlombjk-Eqd in [facility] Work Phone: Start: 03-08-2021 Office outpatient vi sit 15 minutes Elizabeth Tapia Work Phone: [facility] [address] DO Work Phone: Start: 03-08-2021 Patient encounter procedure Elizabeth Tapia Work Phone: [facility] 205 DO Work Phone: Start: 02-28-2021 Telephone encounter Elizabeth Tapia Work Phone: BQ-Emwdssfctrqrcxrf-Oti in [facility] Work Phone: Start: 01-30-2021 Office outpatient vi sit 25 minutes Elizabeth Tapia [facility] Work Phone: Start: 12-15-2020 Office outpatient vi sit 15 minutes Nicki Nguyen Work Phone: [facility] Work Phone: Start: 08-11-2020 End: 08-12-2020 Emergency department patient visit Blanca Lindsey MD Work Phone: [facility] Comment on above: Drug overdose, undet ermined intent, initial encounter (Primary Dx) Start: 02-03-2019 End: 02-03-2019 Emergency department patient visit Eddie Macario Work Phone: [facility] Emergency [facility] Comment on above: Serum [...] patient visit Nathan Dwyer Clint Work Phone: [facility] Comment on above: Viral upper respirat ory tract infection (Primary Dx); Asthmatic bronchitis; Body aches; Cigarette nicotine dependence with nicotine-induced disorder Start: 11-27-2018 End: 11-27-2018 Subsequent hospital visit by physician Estefania Griggs Work Phone: [facility] Comment on above: Constipation, unspec ified constipation type Start: 12-09-2017 Patient encounter MATT CASTILLO Facility:[facility] Start: 05-07-2017 Ambulatory PROVIDER UNKNOWN Facili ty:7 Start: 04-25-2017 Patient encounter Ajay Ortiz en Facility:[facility] Start: 01-10-2017 End: 01-15-2017 Evaluation and management of inpatient [facility] Start: 01-10-2017 End: 01-10-2017 Emergency department patient visit [facility] Procedures Date Procedure Procedure Detail Performing [...] calcium total Yohan Bandar De La Garza [employer] Work Phone: Start: 03-24-2024 Electrocardiogram Florian Wynn MD Work Phone: Start: 03-24-2024 Ct head/brain w/o co ntrast material Hiwot Hoover [employer] Work Phone: Start: 03-24-2024 Assay of ammonia Mirtha Hoover [employer] Work Phone: Start: 03-24-2024 Gases blood ph direc t jax xcpt pulse oximitry Hiwot Hoover [employer] Work Phone: Start: 03-24-2024 LIGHT GREEN TOP Hiwot Hoover [employer] Work Phone: Start: 03-24-2024 RAINBOW DRAW Hiwot Hoover [employer] Work Phone: Start: 03-24-2024 Culture bacterial quanttative colony count urine Hiwot Hoover [employer] Work Phone: Start: 03-24-2024 Drug tst prsmv instr mnt chem analyzers pr date Hiwot Hoover [facility] Work Phone: Start: 03-24-2024 Ecg routine ecg w/le ast 12 lds trcg only w/o i&r Hiwot Hoover [facility] Work Phone: Start: 03-24-2024 Radiologic exam ches t single view Hiwot Hoover [employer] Work Phone: Start: 03-24-2024 Blood ethanol measurement Hiwot Hoover [employer] Work Phone: Start: 03-24-2024 Comprehensive metabo lic panel Hiwot Hoover [employer] Work Phone: Start: 03-24-2024 LAVENDER TOP Hiwot Hoover [facility] Work Phone: Start: 03-24-2024 LIGHT BLUE TOP Hiwot Hoover [employer] Work Phone: Start: 03-24-2024 LIGHT GREEN TOP Hiwot Tha Hoover [facility] Work Phone: Start: 03-24-2024 MINT GREEN TOP Hiwot Hoover [employer] Work Phone: Start: 03-24-2024 RAINBOW DRAW Hiwot Hoover [facility] Work Phone: Start: 03-24-2024 Glucose measurement [facility] Start: 11-07-2022 Microscopic observat [...] for Adults (1 - 1-dose 75+ series) [facility] Start: 2039 RSV Immunization age d 60 or older (1 - 1-dose 60+ series) RSV Immunization aged 60 or older (1 - 1-dose 60+ series) [facility] Start: 08-24-2029 Screening for malign ant neoplasm of cervix [facility] Start: 2029 Zoster Vaccines (1 of 2) Zoste r Vaccines (1 of 2) [facility] Start: 02-01-2029 DTaP/Tdap/Td vaccine (2 - Td) DTaP/Tdap/Td vaccine (2 - Td) [facility] Work Phone: Start: 02-01-2029 DTaP/Tdap/Td Vaccine s (2 - Td or Tdap) DTaP/Tdap/Td Vaccines (2 - Td or Tdap) [facility] Start: 11-08-2027 Screening for malign ant neoplasm of cervix [facility] Start: 08-25-2027 Screening for malign ant neoplasm of cervix Pap Smear [facility] Start: 04-23-2027 Screening for malign ant neoplasm of cervix [facility] Start: 05-29-2026 Screening for malign ant neoplasm of cervix [facility] Start: 11-07-2025 Screening for malign ant neoplasm of cervix [facility] Start: 06-02-2025 Screening for malign ant neoplasm of breast Mammogram [facility] Start: 04-23-2025 Screening for malign ant neoplasm of cervix Pap Smear [facility] Start: 12-20-2024 Influenza vaccination Influenz a Vaccine (Season Ended) [facility] Start: 08-24-2024 End: 10-24-2025 DBT Breast - bilateral screening Bilateral screening mammogram with tomosynthesis Imaging Routine Encounter for screening mammogram for malignant neoplasm of breast Expected: 08/24/2024, Expires: 10/24/2025 [facility] Comment on above: Expected: 08/24/2024 , Expires: 10/24/2025 Start: 08-24-2024 End: 08-24-2025 Hepatitis B virus surface Ag [Presence] in Serum or Plasma by Immunoassay Hepatitis B surface antigen Lab Routine Screen for STD (sexually transmitted disease) Expected: 08/24/2024 (Approximate), Expires: 08/24/2025 [facility] Work Phone: Comment on above: Expected: 08/24/2024 (Approximate), Expires: 08/24/2025 Start: 08-24-2024 End: 08-24-2025 Hepatitis C virus Ab [Presence] in Serum or Plasma by Immunoassay Hepatitis C antibody Lab Routine Screen for STD (sexually transmitted disease) Expected: 08/24/2024 (Approximate), Expires: 08/24/2025 [facility] Comment on above: Expected: 08/24/2024 (Approximate), Expires: 08/24/2025 Start: 08-24-2024 End: 08-24-2025 HIV 1+2 Ab+HIV1 p24 Ag [Presence] in Serum or Plasma by Immunoassay HIV-1 and HIV-2 Antigen-Antibody Screen Lab Routine Screen for STD (sexually transmitted disease) Expected: 08/24/2024 (Approximate), Expires: 08/24/2025 [facility] Comment on above: Expected: 08/24/2024 (Approximate), Expires: 08/24/2025 Start: 08-24-2024 End: 08-24-2025 Reagin Ab [Presence] in Serum by RPR RPR Lab Routine Screen for STD (sexually transmitted disease) Expected: 08/24/2024 (Approximate), Expires: 08/24/2025 [facility] Comment on above: Expected: 08/24/2024 (Approximate), Expires: 08/24/2025 Start: 06-25-2024 End: 06-25-2024 Patient encounter procedure 06/25/2024 8:45 AM EST Office Visit [facility] Obstetrics and Gynecology [facility] [address] [place] [address] Shante Worley MD [address] [place] [address] [facility]etrics [facility]ne[facility] - [place] Start: 05-29-2024 Screening for malign ant neoplasm of cervix Pap Smear [facility] Start: 01-13-2024 Lipid panel Lipid screen [facility] [employer] Phone: Start: 12-21-2023 COVID-19 Vaccine ( season) COVID-19 Vaccine () [facility] Start: 12-21-2023 COVID-19 Vaccine () COVID-19 Vaccine ( season) [facility] Start: 12-21-2023 Influenza vaccination Influenza Vacc ine (#1) [facility] Start: 05-02-2023 Screening for malign ant neoplasm of breast Mammogram [facility] Start: 01-31-2023 End: 01-31-2023 Patient encounter procedure [facility] Start: 12-20-2022 COVID-19 Vaccine () COVID-19 Vaccine () [facility] Start: 12-20-2022 Influenza vaccination [facility] Start: 12-12-2022 End: 12-12-2022 Telemedicine consultation with patient 12/12/2022 8:45 AM EDT Telemedicine [facility] Obstetrics & Gynecology [address] [place] [phone] Shante Worley MD [address] [place], [place] [id number] [facility] Obstetrics & Gynecology Start: 11-07-2022 End: 11-07-2022 Patient encounter procedure 11/07/2022 9:15 AM EDT Office Visit [facility] Obstetrics & Gynecology [address] [place] [phone] Shante Worley MD [address] [place], [place] [address] [facility] Obstetrics & Gynecology Start: 10-04-2022 End: 10-04-2022 Patient encounter procedure 10/04/2022 Office Visit Obstetrics and Gynecology Shante Worley MD [address] [place], [place] [id number] [facility] Start: 09-27-2022 End: 09-27-2022 Patient encounter procedure 09/27/2022 Procedure Visit Obstetrics and Gynecology [facility] Start: 08-14-2022 End: 08-15-2023 US Pelvis US pelvis Imaging Routine Abnormal uterine bleeding (AUB) Adnexal cyst Expected: 08/14/2022, Expires: 08/15/2023 [facility] Work Phone: Comment on above: Expected: 08/14/2022 , Expires: 08/15/2023 Start: 07-25-2022 End: 07-25-2022 Patient encounter procedure 07/25/2022 Office Visit Obstetrics and Gynecology Shante Worley MD [address] [place], [place] [id number] [facility]etrics [facility]necology Start: 07-10-2022 End: 07-10-2022 Admission to same day surgery center [facility] OR Comment on above: LEEP,HYSTEROSCOPY, D ILATION AND CURETTAGE [47254 (CPT )] LEEP [26554 (CPT )] Start: 07-10-2022 End: 07-10-2022 Conization cervix w/wo d&c rpr eltrd exc CONIZATION OF CERVIX LOOP ELECTRODE EXCISION Dysplasia of cervix uteri, unspecified 07/10/2022 3:00 PM EDT [facility] Operating Room Start: 07-10-2022 End: 07-10-2022 Hysteroscopy bx endometrium&/polypc w/wo d&c HYSTEROSCOPY BIOPSY ENDOMETRIUM AND OR POLYPECTOMY Dysplasia of cervix uteri, unspecified 07/10/2022 3:00 PM EDT [facility] Operating Room Start: 07-10-2022 Subsequent hospital visit by physician 07/10/2022 Hospital Encounter Procedural Shante Worley MD [address] [place] [address] [facility] Start: 07-04-2022 End: 07-04-2022 Admission to establishment [facility] Pre-Admit Testing Start: 06-28-2022 End: 06-28-2022 Patient encounter procedure 06/28/2022 Office Visit Obstetrics and Gynecology Shante Worley MD [address] [place] [address] [facility] Start: 06-07-2022 End: 06-07-2023 Colposcopy Colposcopy Procedures Routine ASCUS with positive high risk HPV cervical Expected: 06/07/2022 (Approximate), Expires: 06/07/2023 [facility] Comment on above: Expected: 06/07/2022 (Approximate), Expires: 06/07/2023 Start: 06-07-2022 End: 06-07-2022 Patient encounter procedure 06/07/2022 Procedure Visit Obstetrics and Gynecology Shante Worley MD [address] [place] [address], [address] [place] [address] [facility] Start: 05-06-2022 End: 05-06-2022 Patient encounter procedure 05/06/2022 Procedure Visit Obstetrics and Gynecology [facility] Start: 05-03-2022 End: 05-03-2022 Patient encounter procedure 05/03/2022 Procedure Visit Obstetrics and Gynecology [facility] Start: 05-02-2022 End: 05-02-2022 Patient encounter procedure 05/02/2022 Appointment Radiology [facility] Start: 04-23-2022 End: 06-22-2023 DBT Breast - bilateral screening Bilateral screening mammogram with tomosynthesis Imaging Routine Encounter for screening mammogram for malignant neoplasm of breast Expected: 04/23/2022, Expires: 06/22/2023 [facility] Work Phone: Comment on above: Expected: 04/23/2022 , Expires: 06/22/2023 Start: 04-23-2022 End: 04-23-2023 Follicle stimulating hormone Follicle stimulating hormone Lab Routine Abnormal uterine bleeding Expected: 04/23/2022 (Approximate), Expires: 04/23/2023 [facility] Comment on above: Expected: 04/23/2022 (Approximate), Expires: 04/23/2023 Start: 04-23-2022 End: 04-23-2023 hCG, quantitative, hCG, quantitative, Lab Routine Abnormal uterine bleeding Expected: 04/23/2022 (Approximate), Expires: 04/23/2023 [facility] Comment on above: Expected: 04/23/2022 (Approximate), Expires: 04/23/2023 Start: 04-23-2022 End: 04-23-2023 Prolactin Prolactin Lab Routine Abnormal uterine bleeding Expected: 04/23/2022 (Approximate), Expires: 04/23/2023 [facility] Comment on above: Expected: 04/23/2022 (Approximate), Expires: 04/23/2023 Start: 04-23-2022 End: 04-23-2023 Thyrotropin [Units/volume] in Serum or Plasma TSH Lab Routine Abnormal uterine bleeding Expected: 04/23/2022 (Approximate), Expires: 04/23/2023 [facility] Comment on above: Expected: 04/23/2022 (Approximate), Expires: 04/23/2023 Start: 12-20-2021 Influenza vaccination Influenza Vacc ine (#1) [facility] Start: 08-12-2021 COVID-19 Vaccine (3 - Booster for Pfizer series) COVID-19 Vaccine (3 - Booster for Pfizer series) [facility] Start: 08-01-2021 Cervical cancer screen Cervical canc er screen [place] Start: 08-01-2021 Screening for malign ant neoplasm of cervix Cervical cancer screen [facility] Work Phone: Start: 12-20-2020 Influenza vaccination Flu vacc ine (Season Ended) [facility] Work Phone: Start: 02-02-2020 Pneumococcal Vaccine : Pediatrics (0 to 5 Years) and At-Risk Patients (6 to 49 Years) (2 of 2 - PCV) Pneumococcal Vaccine: Pediatrics (0 to 5 Years) and At-Risk Patients (6 to 49 Years) (2 of 2 - PCV) [facility] Start: 02-02-2020 Pneumococcal Vaccine : Pediatrics (0 to 5 Years) and At-Risk Patients (6 to 64 Years) (2 - PCV) Pneumococcal Vaccine: Pediatrics (0 to 5 Years) and At-Risk Patients (6 to 64 Years) (2 - PCV) [facility] Start: 02-02-2020 Pneumococcal Vaccine : Pediatrics (0 to 5 Years) and At-Risk Patients (6 to 64 Years) (2 of 2 - PCV) Pneumococcal Vaccine: Pediatrics (0 to 5 Years) and At-Risk Patients (6 to 64 Years) (2 of 2 - PCV) [facility] Start: 03-30-2019 End: 03-30-2019 Office Visit 03/30/2019 Office Visit Obstetrics and Gynecology Shante Worley MD [address] [place] [address], [address] [place] [address] [phone] [facility] Start: 2019 Screening for malign ant neoplasm of breast Mammogram [facility] Start: 01-28-2019 Influenza vaccination Flu vaccine (# 1) [place] Comment on above: Postponed from 12/20 (Patient Refused) Start: 01-05-2019 End: 01-05-2019 Office Visit 01/05/2019 Office Visit Obstetrics and Gynecology Shante Worley MD [address] [place] [address], [place], [address] [place] [address] [phone] [facility] Start: 12-28-2018 End: 12-28-2018 Office Visit 12/28/2018 Office Visit Family Medicine Estefania Griggs, SR. 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 Start: 12-20-2018 Influenza vaccination Flu vaccine (# 1) [place] Start: 2000 Screening for malign ant neoplasm of cervix HPV/Cotest [facility] Start: 1998 DTaP/Tdap/Td vaccine (1 - Tdap) DTaP/Tdap/Td vaccine (1 - Tdap) [place] Start: 1998 Hepatitis A Vaccines (1 of 2 - Risk 2-dose series) Hepatitis A Vaccines (1 of 2 - Risk 2-dose series) [facility] Start: 1998 Hepatitis B vaccine (1 of 3 - Risk 3-dose series) Hepatitis B vaccine (1 of 3 - Risk 3-dose series) [facility] Work Phone: Start: 1998 Hepatitis B Vaccines (1 of 3 - 19+ 3-dose series) Hepatitis B Vaccines (1 of 3 - 19+ 3-dose series) [facility] Start: 1997 Diabetes mellitus screening Diabetes Screening [facility] Start: 1995 COVID-19 Vaccine (1) COVID-19 Vaccin e (1) [facility] Work Phone: Start: 1991 Depression Monitoring Depression [facility] Start: 1991 Depression Screening Depression Scre ennanci [facility] Start: 1985 Pneumococcal 0-64 ye ars Vaccine (1 of 1 - PPSV23) Pneumococcal 0-64 years Vaccine (1 of 1 - PPSV23) [place] Start: 1980 Hepatitis A Vaccines (1 of 2 - Risk 2-dose series) Hepatitis A Vaccines (1 of 2 - Risk 2-dose series) [facility] Start: 1980 MMR Vaccines (1 of 1 - Standard series) MMR Vaccines (1 of 1 - Standard series) [facility] Start: 1979 Hepatitis B Vaccines (1 of 3 - 3-dose series) Hepatitis B Vaccines (1 of 3 - 3-dose series) [facility] Start: 1979 HIV screening HIV Screening [facility] Start: 1979 Lipid panel Lipid Panel [facility] Start: 1979 Screening for malign ant neoplasm of colon [facility] Start: 1979 Yearly Adult Physical Yearly Adult P [facility] Bacteria identified in Blood by Culture [facility] Work Phone: Biopsy endometrium Biopsy endome trium Procedures Routine Abnormal uterine bleeding (AUB) Atypical endometrial cells on Pap smear Ordered: 06/07/2022 [facility] Comment on above: Ordered: 06/07/2022 C reactive protein [Mass/volume] in Serum or Plasma [facility] CBC W Auto Different ial panel - Blood [facility] Comprehensive metabo lic 2000 panel - Serum or Plasma [facility] Cytology Cervical or vaginal smear or scraping study Pap Smear Pathology and Cytology Routine Severe dysplasia of cervix (WESTON III) Screening for cervical cancer 04/23/2022 12:19 PM EST [facility] Cytology Cervical or vaginal smear or scraping study Pap Smear Pathology and Cytology Routine Well woman exam with routine gynecological exam 08/24/2024 12:22 PM EDT [facility] EKG 12 Lead - Chest Pain EKG 12 Lead - Chest Pain ECG STAT 08/11/2020 5:25 PM EDT [facility] Work Phone: EMPOWER MULTI-CANCER (2 + 38) EMPOWER MULTI-CANCER (2 + 38) Lab Routine Family history of malignant neoplasm of breast 08/24/2024 11:04 AM EDT [facility] Erythrocyte sedimentation rate [facility] Hepatitis C virus genotype [Identifier] in Blood by CHANDANA with probe detection [facility] HPV High Risk PCR HPV High Risk PCR Microbiology Routine Severe dysplasia of cervix (WESTON III) Screening for cervical cancer 04/23/2022 12:19 PM EST [facility] HPV High Risk PCR HPV High Risk PCR Microbiology Routine Well woman exam with routine gynecological exam 08/24/2024 12:22 PM EDT [facility] Patient referral [facility] Work Phone: PCR for Hepatitis C [facility] Procedure [facility] Procedure [facility] Procedure [facility] SURESWAB(R) ADVANCED VAGINITIS PLUS, TMA ([facility]) Sureswab(R) Advanced Vaginitis Plus, TMA ([facility]) Lab Routine Abnormal uterine bleeding (AUB) Ordered: 06/07/2022 [facility] Comment on above: Ordered: 06/07/2022 Tissue exam [facility] Work Phone: Comment on above: Release Upon Orderin g for 1 Occurrences starting 07/10/2022 Tissue exam Tissue exam Path ology and Cytology Routine Atypical endometrial cells on Pap smear ASCUS with positive high risk HPV cervical Ordered: 06/07/2022 [facility] Work Phone: Comment on above: Ordered: 06/07/2022 [facility] Immunizations Immunization Date Immunization Notes Care Provider [facility] 06-17-2021 Covid-19, Pfizer Gra y Top, Do Not Dilute, (Age 12 Y+), Im, L Shante Worley MD Work Phone: [facility] 11-03-2020 Pfizer-BioNTech COVI D-19 Vacc 30 MCG/0.3ML Intramuscular Suspension Elizabeth Tapia Work Phone: [facility] 10-24-2020 Pfizer-BioNTech COVI D-19 Vacc 30 MCG/0.3ML Intramuscular Suspension Elizabeth Tapia Work Phone: [facility] Work Phone: Comment on above: Series: 10-01-2020 Pfizer-BioNTech COVI D-19 Vacc 30 MCG/0.3ML Intramuscular Suspension Elizabeth Tapia Work Phone: [facility] 02-01-2019 pneumococcal polysaccharide vaccine, 23 valent Blanca Lindsey MD Work Phone: [facility] 02-01-2019 Seasonal, quadrivale nt, recombinant, injectable influenza vaccine, preservative free Blanca Lindsey MD Work Phone: [facility] 02-01-2019 tetanus toxoid, redu mahin diphtheria toxoid, and acellular pertussis vaccine, adsorbed Blanca Lindsey MD Work Phone: [facility] 02-01-2019 influenza virus vacc ine, unspecified formulation Shante Worley MD Work Phone: [facility] 02-24-2018 influenza virus vacc ine, unspecified formulation Blanca Lindsey MD Work Phone: [facility] Work Phone: 02-24-2018 influenza, injectabl e, quadrivalent, preservative free [facility] 01-02-2017 Influenza Vaccine, unspecified formulation [facility] [place] 01-02-2017 influenza virus vacc ine, unspecified formulation Nicki Nguyen Work Phone: [facility] Work Phone: Comment on above: Series: 02-08-2013 Influenza virus vaccine [facility] 02-10-2012 pneumococcal vaccine , unspecified formulation [facility] Pfizer-BioNTech COVI D-19 Vacc 30 MCG/0.3ML Intramuscular Suspension Elizabeth Tapia Work Phone: -[facility] Work Phone: Comment on above: 09/21/20 Series: Payers Date Payer Category Payer Medicaid HMO [employer] [id number] 2023 Self-pay 2023 Medicaid [id number] 2023 Blue Cross Blue Shie ld (Indemnity or Managed Care) - Out of State BCBS OUT OF STATE [facility] [id number] 2023 Unknown 2023 Unknown [id number] 2020 Medicaid [id number] 2019 Unknown [employer]VANT AGE [employer]AGE [id number] 2019-Present [phone] [address] [place] [address] [id number] 2016 Private Health Insurance [facility] COMM[facility] PLAN xxxxxxxxx 2016-Present [phone] [address] [place] [address] xxxxxxxxx [id number] 1979 Unknown [id number] 1979 Unknown [id number] 1979 Unknown [id number] Private Health Insurance [id number] Unknown [id number] Unknown [id number] Unknown [id number] Unknown 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 X3 per week; 2 cups per day; Start: 12-11-2018 End: 07-10-2022 Alcohol intake No [facility] Start: 07-09-2018 Tobacco Comment pt also vapes [place] Start: 1980 Sex Assigned At Not on file [place] Start: 01-11-2019 End: 02-03-2019 Tobacco smoking status NHIS Former sm[place] End: 12-28-2018 History of tobacco use Current smoker [place] Start: 08-20-2003 End: 12-28-2018 History of tobacco use Cigarette Smoker [place] Start: 01-11-2019 History SDOH Financial 5 [place] Start: 01-11-2019 History SDOH Food Worry 1 [place] Start: 01-11-2019 End: 07-10-2022 History SDOH Transport Med 2 [facility] [place] Start: 04-06-2020 End: 06-02-2024 Tobacco use and exposure Never used [facility] Start: 04-06-2020 End: 08-24-2024 Alcohol intake Current non-drinker of alcohol (finding) [facility] Work Phone: Start: 04-13-2022 End: 12-24-2023 Exposure to SARS-CoV-2 (event) Not sure [facility] Start: 04-27-2014 End: 04-27-2014 Tobacco smoking status NHIS Unknown if ever smoked [facility] Start: 07-22-2013 Occasional [facility] Start: 06-20-2022 None [facility] Start: 07-22-2013 Cigarettes [facility] Start: 1980 Sex Assigned At Female W [facility] Within the last year , have you been afraid of your partner or ex-partner? No [facility] In the past 12 month s, has lack of transportation kept you from medical appointments or from getting medications? No [facility] Start: 02-07-2022 Gender identity Identifies as female gender (finding) [facility] Start: 02-07-2022 Sexual orientation Heterosexua l (finding) [facility] Start: 03-24-2024 Alcoholic beverage intake Ex-drinker (finding) [facility] (I/We) worried wheth er (my/our) food would run out before (I/we) got money to buy more. Never true [facility] Start: 03-24-2024 Sexual orientation Choose not to disclose [facility] Start: 11-19-2021 End: 07-20-2024 Sex Female (finding) [facility] NEGATED: Highlighted row Denies Alcohol Use (History) Denies Alcohol Use (History) [facility] Work Phone: Comment on above: glass of [...] message to call the screening program at [phone] - voicemail not set up [facility] 09-06-2024 Miscellaneous Notes Formattin g of this note might be different from the original. 1st attempt MyChart message sent 08/27/24 2nd attempt called patient Unable to leave message to call the screening program at [phone] - voicemail not set up MyChart message sent to have patient call screening program if still interested in scheduling a screening colonoscopy. documented in this encounter [facility] 08-27-2024 Telephone encounter Note Form atting of this note might be different from the original. MyChart message sent to have patient call screening program if still interested in scheduling a screening colonoscopy. [facility] 08-25-2024 Telephone encounter Note Form atting of this note might be different from the original. Rx for bv and yeast sent [facility] 08-25-2024 Miscellaneous Notes Formattin g of this note might be different from the original. Rx for bv and yeast sent documented in this encounter [facility] 08-24-2024 History of Presen t illness Narrative [...] Age of Onset Macular degeneration Mother Other ([address]) Father blood infection; liver dis; septic-age 59 [...] Resource Strain: Low Risk (06/17/2023) [facility] Overall Financial Resource Strain (CARDIA) Difficulty of Paying Living Expenses: Not very hard Food Insecurity: No Food Insecurity (03/24/2024) Received from [facility] Hunger Vital Sign Worried About Running Out of Food in the Last Year: Never true Ran Out of Food in the Last Year: Never true Transportation Needs: No Transportation Needs (03/24/2024) Received from [facility] PRAPARE - Transportation Lack of Transportation (Medical): No Lack of Transportation (Non-Medical): No Physical Activity: Not on file Stress: Not on file Social Connections: Not on file Intimate Partner Violence: Not At Risk (03/24/2024) Received from [facility] Humiliation, Afraid, Rape, and Kick questionnaire Fear of Current or Ex-Partner: No Emotionally Abused: No Physically Abused: No Sexually Abused: No Housing Stability: Low Risk (03/24/2024) Received from [facility] Housing Stability Vital Sign Unable to Pay [...] Antigen-Antibody Screen 6. Screening for colon cancer [facility] 7. Family history of malignant neoplasm [...] CARVE-OUT LAB: SPECIMEN MUST BE SENT TO [facility] FOR PROCESSING Bilateral screening mammogram with tomosynthesis [...] DELETE BELOW THIS LINE Department Information ID: [id number] Department:[facility] [address] [facility] [address] Dept: [phone] Dept Loc: [phone] Order Specific Question: Patient and physician allow Becky to share order details with 3rd alliance party genetic counselor? Answer: Yes Order Specific Question: [...] history of malignant neoplasm of breast [V16.3.ICD-9-CM] [facility] Standing Status: Future Standing Expiration Date: 02/24/2025 Referral Priority: Routine Referral Type: Consultation Referral Reason: Specialty Services Required Requested Specialty: Gastroenterology Number of Visits Requested: 1 POCT , urine manually resulted Mixer Runner was offered to the patient for exam. Patient declined offer of software programmer documented in this encounter [facility] 06-27-2024 History and physi whitney note Note Date/Time June 27, 2024 7:21pm [facility] [address] [place] [address] H&P Exam - Wound Care 06/27/24 1832 MR#: [id number] Acct: [id number] Name: LISA CHAUDHRY Rep #:[id number] : 1980 44 From: Mario Espino PCP: [...] she had been evaluated recently at the [facility] by Dr. Boni Lambert, a [...] smoking approximately 7 cigarettes/day. She also vapes. [facility] Medical History Skin necrosis Non-pressure chronic ulcer [...] Recorded Date Recorded By Document 06/23/24 10:28 [facility] AD2110 06/23/24 11:24 [facility] 06/23/24 10:28 - Today's Visit Information [...] Pain Free? Yes Communication Assessment Preferred language [place] Striper Spray Gun Required No Able to Read Yes Able [...] in Ability to Perform Denies Any Declines Culture/Hoahaoism/Servicing Rep Cultural/Hoahaoism Needs that may affect No Treatment Plan Teaching: Wound Center *Welcome to the Wound Center -Person Taught Patient -Teaching Method Discussion -Response to teaching Verbalize Understanding WC - Nurse 1 - General Ulcer Measurement Start: 06/23/24 10:28 Freq: Status: Active Protocol: Activity Type Activity Date Activity User E-sign Co-sign Detail Recorded Client Recorded Date Recorded By Document 06/23/24 10:28 [facility] [id number] 06/23/24 11:24 BM[facility] Edit Result 06/23/24 10:28 [facility] (1) [id number] 06/23/24 11:47 BMF (1) #16 L Upper [...] Date Recorded By Document 06/23/24 11:44 DS [id number] 06/23/24 12:40 DS 06/23/24 11:44 Wound Center [...] Recorded Date Recorded By Document 06/23/24 12:03 [id number] 06/23/24 12:05 GM Edit Result 06/23/24 12:03 GM (1) [id number] 06/23/24 12:14 GM (1) right - Lotion [...] Multi Select Codes Visit Charges Office Visit/Consults: 75866 OV L4 New 45 min Integumentary Integumentary CPT Codes: 22505 Suzanna subq tissue 20 sq cm/< Assessment/Plan [...] We are to request records from the [facility], including those from Dr. Boni [...] Cosigner Signature (if applicable): CC: ~ Signed [facility] Work Phone: 1(258) 334-988803-09-2025 History and physical note [facility] [address] [place] [address] H&P Exam - Wound Care 06/27/24 1832 MR#: [id number] Acct: [id number] Name: LISA CHAUDHRY Rep #:[id number] : 1980 44 From: Mario Espino PCP: [...] she had been evaluated recently at the [facility] by Dr. Boni Lambert, a [...] smoking approximately 7 cigarettes/day. She also vapes. [facility] Medical History Skin necrosis Non-pressure chronic ulcer [...] Recorded Date Recorded By Document 06/23/24 10:28 [facility] [id number] 06/23/24 11:24 [facility] 06/23/24 10:28 - Today's Visit Information [...] Pain Free? Yes Communication Assessment Preferred language Comoran Striper Spray Gun Required No Able to Read Yes Able [...] in Ability to Perform Denies Any Declines Culture/Hoahaoism/Servicing Rep Cultural/Hoahaoism Needs that may affect No Treatment Plan Teaching: Wound Center *Welcome to the Wound Center -Person Taught Patient -Teaching Method Discussion -Response to teaching Verbalize Understanding - Nurse 1 - General Ulcer Measurement Start: 06/23/24 10:28 Freq: Status: Active Protocol: Activity Type Activity Date Activity User E-sign Co-sign Detail Recorded Client Recorded Date Recorded By Document 06/23/24 10:28 [facility] [id number] 06/23/24 11:24 BM Edit Result 06/23/24 10:28 [facility] (1) [id number] 06/23/24 11:47 [facility] (1) #16 L Upper Calf Med [...] Appearance) -Ulcer Cleansing S (more content not included)...[facility] 06-23-2024 Evaluation note* Diagnosis Onset Date Resolution [...] 2024 10:08am Seizures chronic June 23 10:08am [facility] Work Phone: 1(117) 935-306912-07-2024 Plan of care note* Plan of Care [...] Absence of pressure injury 03/27/20241724 by Jason Hoskisn, RN Outcome: Completed 03/27/2024952 by Jason Hoskins, [...] Impaired Goal: Wound healing 03/27/20241724 by Jason Hoksins, RN Outcome: Completed 03/27/2024952 by Jason Hoskins, [...] by Jason Hoskins RN Outcome: Partially Met [id number] Miscellaneous Notes* Plan of Care - Jason [...] % 50.2 (H) 49.9 (H) 48.4 (H) [facility] Reference Range & Units 03/24/24 16:47 Color, [...] examination, documentation, and discharge. documented in this [id number] History of Present illness Narrative* Jason Hoskins RN - 03/27/2024 5:00 PM EST Patient discharged to [facility]. * Jason Hoskins RN - 03/27/2024 3:30 PM EST OR contacted again regarding patient's ride. RN updated [facility] that no one called the hospital [...] IV vancomycin however commenced overnight by the lead software architect HARDENING MACHINE OPERATOR In the interim we will continue current [...] provider or the ordering physician. Workstation ID: [id number] Time spent managing this highly complex patient [...] Chaudhry Date of : 1980 Discharge Plan: [facility]/[phone] at discharge D/C Disposition: Rehab Facility Final D/C Agency/Destination: ([facility]) Discharging Transportation Plan:OR to pickle solution maker pt when discharge ready Discharge Plan Status: SW sent clinical for ADAM to OR. [employer] would like Day of discharge bundle faxed when an established discharge date is set. Please fax info to [phone] Assessment and Background Information: * Lisa Sarmiento [...] provider or the ordering physician. Workstation ID: [id number] Time spent managing this highly complex patient was at least 50 minutes Clarence Wynn MD documented in this [id number] NoteDISCHARGE SUMMARY Patient: Lisa Chaudhry Date of : 1980 Site: [facility] Family Provider: Brandi, Physician Admit Date: 03/24/2024 [...] Hypokalemia/hypophosphatemia/mild hyponatremia, all r (more content not included)...[facility]12-07-2024 NoteCT Abd/Pelvis showed a large stool burden. Laxatives given with good results . No more abdominal pain. Home today. AUTHENTICATED BY EMA CALDWELL, ON 03/27/2024 14:54:11[facility]12-07-2024 Hospital course Narrative* Clarence Wynn MD - 03/27/2024 2:52 PM EST DISCHARGE SUMMARY Patient: Lisa Chaudhry Date of : 1980 Site: [facility] Family Provider: Brandi, Physician Admit Date: 03/24/2024 [...] Family Provider: Brandi, Physician, Phone: None Address: [facility] Follow Up: No follow-up provider specified. Subjective: I saw and examined the patient this afternoon with RN. [facility] and had finished her lunch without any [...] on 03/27/24, 2:52 PM documented in this [id number] Hospital Discharge instructions * Discharge Instructions* Clarence [...] be sent through Care Everywhere. * Constipation (Comoran) * UTI (Urinary Tract Infection): Female (Comoran) * Heroin Use and Withdrawal: General Info (Comoran) documented in this [id number] Plan of care note* Plan of Care [...] level of psychosocial functioning Outcome: Partially Met [place] [id number] Plan of care note* Plan of Care [...] level of psychosocial functioning Outcome: Partially Met [place] [id number] NoteHOSPITALIST PROGRESS NOTES Lisa Chaudhry is a [...] IV vancomycin however commenced overnight by the lead software architect HARDENING MACHINE OPERATOR In the interim we will continue current [...] responsive and follows command (more content not included)...[facility]12-06-2024 Note* Utilization Review - Abbie Babin RN [...] for discharge to rehab facility. Date TBD [id number] Consult note* Jamal Black, OYSTER HARVESTER - 03/26/2024 10:16 AM ESTAssociated Order(s): IP CONSULT TO GENERAL SURGERY Surgical Consultation Reason for Consult Intractable nausea, vomiting, and abdominal pain History of Present Illness Lisa Chaudhry is a 43 y.o. female who presented to the ED due to altered mental status from [facility]. Patient was treated with Narcan in the [...] Caldwell MD at 03/27/2024 2:51 PM EST [facility] Work Phone: 1(279) 939-975212-06-2024 NoteSurgical Consultation Reason for Consult Intractable nausea, vomiting, and abdominal pain History of Present Illness Lisa Chaudhry is a 43 y.o. female who presented to the ED due to altered mental status from the [facility]. Patient was treated with Narcan in the [...] Reaction Unknown: Please investigate and enter into [facility]. Other reaction(s): Vomiting Reaction Unknown: Please investigate and enter into [facility]. Reaction Unknown: Please investigate and enter into [facility]. Other reaction(s): Vomiting Reaction Unknown: Please investigate and enter into [facility]. REVIEW OF LABS AND IMAGING See [...] CHANDU AUTHENTICATED BY EMA CALDWELL, ON 03/27/2024 14:51:53[facility]12-06-2024 Consult note* Jamal Black, [facility] - 03/26/2024 10:16 AM ESTAssociated Order(s): IP CONSULT TO GENERAL SURGERY Surgical Consultation Reason for Consult Intractable nausea, vomiting, and abdominal pain History of Present Illness Lisa Chaudhry is a 43 y.o. female who presented to the ED due to altered mental status from [facility]. Patient was treated with Narcan in the [...] Discharge needs Discharge Plan: to return to [facility] ([facility]) Discharging Transportation Plan: [facility] /[phone] Discharge Plan Status: SW consutled to see pt re: discharge needs. [facility] on [facility], from [facility]. ILAN met with pt in room. Pt responded to questions but was head to toe covered in sheet. Discussed discharge plan. Pt not feeling well this a.m. Statesshe is uncertain if she will return to [facility]. SW expressed concern re: pt not going back to [facility] and explained that [facility] was best safety option for pt at this time. SW called [facility] to confirm [facility] acceptance of pt's return,when medically stable, awaiting call back from pt's network announcer at the facility. 2:25 PM [facility] called back and confirmed acceptance of pt when medically stable. They would like clinical faxed to [phone] when pt is discharged for ADAM 2:36 PM Assessment and Background Information: Living Arrangements: Alone Support Systems: None Assistance Needed: none requested Type of Residence: Independent living Prior to Admission Home Care Services: No documented in this [id number] Plan of care note* Plan of Care [...] level of psychosocial functioning Outcome: Not Met [id number] NoteHOSPITALIST PROGRESS NOTES Lisa Chaudhry is a [...] degrees C) TempSrc: Temporal (more content not included)...[facility] 03-25-2024 Consult note* Alejandrina Roberson, PT - 03/25/2024 10:08 AM EST Physical Therapy PHYSICAL THERAPY SCREEN Patient was screened by Physical Therapy. Order discontinued at this time. Patient refused therapy/OOB activity x2 attempts. [id number] Consult note* Rainer Gleason - 03/25/2024 10:07 [...] Alicea OT at 03/25/2024 10:10 AM EST [id number] Consult note* Nicki Moyer LSW - 03/25/2024 8:10 AM EST Care Management Consult Note Date: 03/25/2024 Time: 8:10 AM Patient Name: Lisa Chaudhry Date of : 1980 Reason for Consult: Discharge needs Discharge Plan: to return to [facility] ([facility]) Discharging Transportation Plan: [facility] /[phone] Discharge Plan Status: SW consutled to see pt re: discharge needs. [facility], from [facility]. SW met with pt in room. [...] medically stable, awaiting call back from pt's network announcer at the facility. 2:25 PM [facility] called back and confirmed acceptance of pt when medically stable. They would like clinical faxed to [phone] when pt is discharged for ADAM 2:36 PM Assessment and Background Information: Living Arrangements: Alone Support Systems: None Assistance Needed: none requested Type of Residence: Independent living Prior to Admission Home Care Services: No [id number] Plan of care note* Plan of Care [...] of skin protection measures Outcome: Not Met [id number] Emergency department Note* Pete Maldonado RN - 03/24/2024 7:58 PM EST Report called to Tino CARRANZA [id number] Emergency department Note* Pete Maldonado RN - 03/24/2024 7:58 PM EST Report called to Tino CARRANZA * Micha Pedersen RN - 03/24/2024 7:40 PM EST Pt will be admitted to room [facility] with Tino CARRANZA assigned. * Antonieta Goodwin RN - 03/24/2024 7:40 PM EST Pt to go to Tino Blakely RN * Jessi Poe RN - 03/24/2024 7:03 PM EST Bed request/admit dispo Mihca moncada RN/Dry Kiln Burner notified of pending admission. * Pete Maldonado RN - 03/24/2024 6:41 PM EST Patient medicated per JUN. No further needs at this time. * Pete Maldonado RN - 03/24/2024 6:31 PM EST Patient returned from CT, large episode of emesis in hallway. 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 * Pete Maldonado RN [...] ESTAssociated Order(s): EKG 12- lead; Critical Care [facility] MED SURG ATTENDING NOTE: NAME: Lisa Chaudhry CSN: [id number] 43 y.o. PCP: No, Physician History: Chief Complaint: Withdrawal and Altered Mental Status HPI: The history was obtained from the patient. Lisa is a 43 y.o. female who presents with a chief complaint of Withdrawal and Altered Mental Status. Past medical history of drug abuse. 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 Patient was being seen there [...] 189/89. Afebrile. Nontachycardic. 98% on room air. Xfwjp-xj-sjkl glucose was checked 133. Patient is in [...] Resource Strain: Low Risk (06/17/2023) Received from [facility] Overall Financial Resource Strain (CARDIA) Difficulty of Paying Living Expenses: Not very hard Food Insecurity: Food Insecurity Present (06/17/2023) Received from [facility] Hunger Vital Sign Worried About Running Out of Food in the Last Year: Sometimes true Ran Out of Food in the Last Year: Sometimes true Transportation Needs: No Transportation Needs (06/17/2023) Received from [facility] PRAPARE - Transportation Lack of Transportation (Medical): No Lack of Transportation (Non-Medical): No Housing Stability: Unknown (06/17/2023) Received from [facility] Housing Stability Vital Sign Unable [...] Reaction Unknown: Please investigate and enter into [employer]. Other reaction(s): Vomiting Reaction Unknown: Please investigate [...] All other components within normal limits Narrative: [facility] Laboratory Services has implemented the eGFR calculation [...] Procedure Abnormality Status --------- ------ CBC Auto Differential[[id number]] Abnormal Final result Please view results for these tests on the individual orders. TROPONIN TSH WITH REFLEX FREE T4 CT Head Or Brain Without Contrast Final Result IMPRESSION: No acute large vessel infarct, acute intracranial hemorrhage, or intracranial mass lesion. Electronically signed by: Rubén Yost MD 03/24/2024 06:40 PM [facility] XR Chest 1 View Final Result Radiographically, there is no cardiopulmonary disease. If you have questions or concerns regarding your Radiology (Medical Imaging) report, please reach out to your family provider or the ordering physician. Workstation ID: [id number] Procedures: EKG 12-lead Date/Time: 03/24/2024 4:05 PM Performed by: Hiwot Hoover CNP Authorized by: Hiwot Hoover CNP Rhythm: sinus rhythm BPM: 58 Conduction: conduction normal ST Segments: ST segments normal normal [place] interval normal QRS interval normal QT interval [...] ED Course User Index [RA] Hiwot Hoover, OYSTER HARVESTER Lisa is a 43-year-old female who presents emergency room for complaints of lethargy, weakness, and opioid withdrawal. Patient has a history of IV drug abuse. She has been at a recovery center, [facility]. States last used 3 days ago. [...] available in inpatient encounters. Please contact a system development engineer. Hiwot Hoover CNP ED OYSTER HARVESTER [facility] MED SURG Hiwot Hoover CNP 03/24/241910 Hiwot Hoover CNP 03/24/242019 Cosigned by Luis Fernando Lopez MD at 03/25/2024 7:30 AM EST * Antonieta Goodwin RN - 03/24/2024 3:21 PM EST Hiwot Hoover CNP at bedside attempting US IV. * Antonieta Goodwin RN - 03/24/2024 3:13 PM EST Blood sugar 133. * Antonieta Goodwin RN - 03/24/2024 3:13 PM EST Pt presents from [facility] by log truck driver. Pt is unresponsive. Per [facility] [...] Pt talking, still drowsy. documented in this [id number] History and physical note* Yohan De La Garza, OYSTER HARVESTER - 03/24/2024 7:56 PM EST Lisa Chaudhry [...] Reaction Unknown: Please investigate and enter into [employer]. Other reaction(s): Vomiting Reaction Unknown: Please investigate and enter into [employer]. Reaction Unknown: Please investigate and enter into [employer]. Other reaction(s): Vomiting Reaction Unknown: Please investigate and enter into [employer]. Home Medications: Prior to Admission medications Medication [...] provider or the ordering physician. Workstation ID: [id number] EKG: Sinus rhythm Read by ED attending [...] Wynn MD at 03/25/2024 10:55 AM EST [id number] History and physical note* Yohan De La [...] Reaction Unknown: Please investigate and enter into [employer]. Other reaction(s): Vomiting Reaction Unknown: Please investigate and enter into [employer]. Reaction Unknown: Please investigate and enter into [employer]. Other reaction(s): Vomiting Reaction Unknown: Please investigate and enter into [employer]. Home Medications: Prior to Admission medications Medication [...] by: Rubén Yost MD 03/24/2024 06:40 PM [facility] XR Chest 1 View Final Result Radiographically, there is no cardiopulmonary disease. If you have questions or concerns regarding your Radiology (Medical Imaging) report, please reach out to your family provider or the ordering physician. Workstation ID: [id number] EKG: Sinus rhythm Read by ED attending [...] 03/25/2024 10:55 AM EST documented in this [id number] Emergency department Note* Micha Pedersen RN - 03/24/2024 7:40 PM EST Pt will be admitted to room 2004 with Tino CARRANZA [facility]. [facility] Emergency department Note* Antonieta Goodwin RN - 03/24/2024 7:40 PM EST Pt to go to Tino Blakely [facility]uy[facility]9052 Emergency department Note* Jessi Poe RN - 03/24/2024 7:03 PM EST Bed request/admit dispo Micha moncada RN/Dry Kiln Burner notified of pending admission. [address]qjkd30-87-6529 Emergency department Note* Pete Maldonado RN - 03/24/2024 6:41 PM EST Patient medicated per MAR. No further needs at this time. [address]MkbwYldfcw73-22-0422 Emergency department Note* Pete Maldonado RN - 03/24/2024 6:31 PM EST Patient returned from CT, large episode of emesis in hallway. 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 [id number] Emergency department Note* Pete Maldonado RN - 03/24/2024 5:46 PM EST Patient medicated per JUN. No further needs. [id number] Emergency department Note* Antonieta Goodwin RN - 03/24/2024 4:46 PM EST Lab unable to collect lactic blood draw. Hiwot WOLFE notified [id number] Emergency department Note* Pete Maldonado RN - 03/24/2024 4:45 PM EST Patient voided on bedpan, sample collected. [id number] Emergency department Note* Antonieta Goodwin RN - 03/24/2024 4:37 PM EST Lab remains at bedside for blood draw [id number] Emergency department Note* Pete Maldonado RN - 03/24/2024 3:55 PM EST X ray at bedside [id number] Emergency department Note* Pete Maldonado RN - 03/24/2024 3:51 PM EST Phlebotomy at beside [id number] Physician Emergency department Note* ED Attestation Note [...] completed their own examination, documentation, and discharge. [facility] Work Phone: 1(142) 539-256612-04-2024 Emergency department Note* Antonieta Goodwin RN - 03/24/2024 3:34 PM EST Straight cath attempt x2 by KATIUSKA Willoughby. Unsuccessful urine collection. Per Hiwot Hoover NP attempt after bolus of fluid. [id number] Physician Emergency department Note* Hiwot Hoover CNP - 03/24/2024 3:31 PM ESTAssociated Order(s): EKG 12-lead; Critical Care [facility] MED SUR[facility] ATTENDING NOTE: NAME: Lisa Chaudhry CSN: [id number] 43 y.o. PCP: No, Physician History: Chief Complaint: Withdrawal and Altered Mental Status HPI: The history was obtained from the patient. Lisa is a 43 y.o. female who presents with a chief complaint of Withdrawal and Altered Mental Status. Past medical history of drug abuse. 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 Patient was being seen there [...] 189/89. Afebrile. Nontachycardic. 98% on room air. Ovnis-do-kxyk glucose was checked 133. Patient is in [...] Resource Strain: Low Risk (06/17/2023) Received from [facility] Overall Financial Resource Strain (CARDIA) Difficulty of Paying Living Expenses: Not very hard Food Insecurity: Food Insecurity Present (06/17/2023) Received from [facility] Hunger Vital Sign Worried About Running Out of Food in the Last Year: Sometimes true Ran Out of Food in the Last Year: Sometimes true Transportation Needs: No Transportation Needs (06/17/2023) Received from [facility] PRAPARE - Transportation Lack of Transportation (Medical): No Lack of Transportation (Non-Medical): No Housing Stability: Unknown (06/17/2023) Received from [facility] Housing Stability Vital Sign Unable [...] Reaction Unknown: Please investigate and enter into [facility]. Reaction Unknown: Please investigate and enter into [facility]. Other reaction(s): Vomiting Reaction Unknown: Please investigate and enter into [facility]. ROS: Review of Systems Unable to [...] All other components within normal limits Narrative: [facility] Laboratory Services has implemented the eGFR calculation [...] Procedure Abnormality Status --------- ------ CBC Auto Differential[[id number]] Abnormal Final result Please view results for [...] provider or the ordering physician. Workstation ID: [id number] Procedures: EKG 12-lead Date/Time: 03/24/2024 4:05 PM Performed by: Hiwot Hoover CNP Authorized by: Hiwot Hoover CNP Rhythm: sinus rhythm BPM: 58 Conduction: conduction normal ST Segments: ST segments normal normal [place] interval normal QRS interval normal QT interval [...] She has been at a recovery center, [facility]. States last used 3 days ago. [...] available in inpatient encounters. Please contact a system development engineer. Hiwot Hoover CNP ED [facility] MED SURG Hiwot Hoover CNP 03/24/241910 Hiwot Hoover CNP 03/24/242019 Cosigned by Luis Fernando Lopez MD at 03/25/2024 7:30 AM EST [id number] Emergency department Note* Antonieta Goodwin RN - 03/24/2024 3:21 PM EST Hiwot Hoover CNP at bedside attempting US IV. [id number] Emergency department Note* Antonieta Goodwin RN - 03/24/2024 3:13 PM EST Blood sugar 133. [id number] Emergency department Triage note* Antonieta Goodwin RN - 03/24/2024 3:13 PM EST Pt presents from [facility] by log truck driver. Pt is unresponsive. Per [facility] pt is in withdrawal from opiates. Last use was approximately 3 days ago. Today pt received suboxone and 25 mg phenergan x2. States pt has been super sleepy, weak, bad color, frail, emotional. [id number] Emergency department Note* Antonieta Goodwin RN - 03/24/2024 3:12 PM EST Nasal narcan given 2 mg admin by KATIUSKA Willoughby per Dr. Lopez. Pt talking, still drowsy. [id number] Emergency department Note* Mónica Mcgowan RN - 12/23/2023 10:30 PM EDT Pt brought in by [employer] [facility] [employer]. Pt was found at [facility]. 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 Per [facility] EMS squad police went out to [...] hospital but felt pressure to go by [place]. [employer] did not pink slip pt. DR Hernandez broughtto bedside and update with all information from [facility] ems squad and believe psychiatric evaluation for this pt is not need at this time. Mónica Mcgowan RN 12/23/232315 [facility] Work Phone: 1(154) 208-832109-03-2024 Emergency department Note* Mónica Mcgowan RN - 12/23/2023 10:30 PM EDT Pt brought in by [employer]. Pt was found at [employer]. 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 [employer] did not pink slip pt. DR Hernandez broughtto bedside and update with all information from [facility] ems squad and believe psychiatric evaluation for this pt is not need at this time. Mónica Mcgowan RN 12/23/232315 documented [facility]High[facility] Work Phone: [phone] [id number] Telephone encounter Note* Telephone Encounter - Chayito Mccord MA - 10/29/2023 2:34 PM EDT Called pt to schedule pap. Unable to leave [facility] d/t voice mailbox not being set up. [facility] HospitalYywfia25-62-9574 Miscellaneous Notes* Telephone Encounter - Chayito Mccord [...] call and help schedule documented in this encounterSAvita Health System Galion HospitalYzfqap74-10-2554 Telephone encounter Note* Telephone Encounter - Citlaly Bennett - 10/28/2023 1:21 PM EDT Tried calling patient 10/28/23. To schedule a repeat pap. No answer, No voicemail. [facility] HospitalUdeuoy73-35-5784 Miscellaneous Notes* Telephone Encounter - Citlaly Bennett - 10/28/2023 1:21 PM EDT Tried calling patient 10/28/23. To schedule a repeat pap. No answer, No voicemail. * Telephone Encounter - Chayito Mccord MA - 09/25/2023 8:05 AM EDT Other Machine sent to schedule appt * Telephone Encounter - Shante Worley MD - 09/24/2023 6:40 PM EDT Pt due for repeat pap ho leep. Please call and help schedule documented in this encounterSAvita Health System Galion HospitalSdoqpq22-99-4282 Telephone encounter Note* Telephone Encounter - Chayito Mccord MA - 09/25/2023 8:05 AM EDT [employer] sent to schedule appt [facility] HospitalNbfdxm36-71-7853 Telephone encounter Note* Telephone Encounter - Shante Worley MD - 09/24/2023 6:40 PM EDT Pt due for repeat pap ho leep. Please call and help schedule [facility] HospitalEfmpgl60-80-9083 NoteHNO ID: [id number] Author: YULISSA MADISON RN Service: Care Management [...] 19, 2023 TIME: 10:45 AM CONTACT #: [id number] [id number] NoteHNO ID: [id number] Author: YULISSA MADISON RN Service: Care Management [...] 19, 2023 TIME: 10:45 AM CONTACT #: [id number] NoteHNO ID: [id number] Author: AMAYA VÁZQUEZ PA-C Service: Hospital Medicine Author Type: Physician Tree Feller Operator Type: Progress Notes Filed: 06/18/2023 13:33 Note Text: DEPARTMENT OF HOSPITAL MEDICINE PROGRESS NOTE SERVICE DATE: 06/18/2023 SERVICE TIME: 1:32 PM Hospital Medicine/Primary Attending: Mitchell Hannon MD NIGHT AND WEEKEND COVERAGE: [place] [employer]: Days: [phone], please page attending physician. Nights: [phone], please page [place] [facility] Night coverage pager [phone]. Subjective INTERVAL HPI: -ECHO completed this morning [...] and Airways Line Duration Peripheral 06/16/23 0837 [facility] Short Right Arm 20 Gauge 2 days [...] NAME: Lisa Chaudhry DATE: 06/18/2023 TIME: 1:32 PMTogus Va Medical CenterQumdhmou32-28-7926 NoteHNO ID: [id number] Author: RITO, AMAYA, PA-C Service: Hospital Medicine Author Type: Physician Tree Feller Operator Type: Progress Notes Filed: 06/17/2023 13:53 Note Text: DEPARTMENT OF HOSPITAL MEDICINE PROGRESS NOTE SERVICE DATE: 06/17/2023 SERVICE TIME: 1:44 PM Hospital Medicine/Primary Attending: Mitchell Hannon MD NIGHT AND WEEKEND COVERAGE: [place] [employer]: Days: [phone], please page attending physician. Nights: [phone], please page [place] [facility] Night coverage pager [phone]. Subjective INTERVAL HPI: -reportedly found naked in [...] and Airways Line Duration Peripheral 06/16/23 0837 [facility] Short Right Arm 20 Gauge 1 day [...] NAME: Lisa Chaudhry DATE (more content not included)...[facility] CenterUmbzwefc62-39-2389 NoteHNO ID: [id number] Author: YULISSA MADISON RN Service: Care Management [...] Indicated Advance Directives Current Advance Directive: None Sound Ranging Crewmember Attempted to Assist with AD Completion: Yes [...] Be able to go home, General wellness [place] of Choice Explained: [place] of Choice Given: No Reason Not Given: [...] ordered one year IOP program at [facility] in 03/13. 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 Pt denied current drug [...] 17, 2023 TIME: 12:30 PM CONTACT #: [id number] [id number] History of Present illness Narrative* Shante Worley [...] stated that they are currently in the [facility]. If the patient is a minor, permission has been obtained by the parent or guardian for the patient to receive medical care at this visit. [facility] reviewed with patient Assessment: Diagnosis [...] preventative health maintenance follow-up. documented in this encounterSAvita Health System Galion HospitalJhgedf85-54-1856 Note* Addendum Note - Shante Worley MD - 12/08/2022 9:24 AM EDTAddended by: SHANTE WORLEY on: 12/08/2022 09:24 AM Modules accepted: Orders [facility] HospitalShnjht00-29-3534 Telephone encounter Note* Telephone Encounter - Shante Worley MD - 12/08/2022 9:24 AM EDT Rx sent [facility] HospitalDuwbyd89-55-8133 Miscellaneous Notes* Addendum Note - Shante Worley [...] provider for further assistance documented in this encounterSAvita Health System Galion HospitalWeemkg77-96-0052 Telephone encounter Note* Telephone Encounter - Raquel [...] Sent TE to provider for further assistance [facility] HospitalQprymi37-00-1092 Miscellaneous Notes* Telephone Encounter - Raquel Kirkland [...] provider for further assistance documented in this [facility]07-18-2023 Telephone encounter Note* Telephone Encounter - Shante Worley MD - 11/05/2022 7:49 AM EDT Please schedule patient a camelid fiber sorter visit this week [facility] HospitalGvijds48-14-6063 Miscellaneous Notes* Telephone Encounter - Shante Worley MD - 11/05/2022 7:49 AM EDT Please schedule patient a camelid fiber sorter visit this week * Telephone Encounter - Sammy Gomez RN - 11/04/2022 11:16 AM EDT Reason for Disposition SEVERE post-op pain (e.g., excruciating, pain scale 8-10) that is not controlled with pain medications Caller has URGENT question and triager unable to answer question Protocols used: Post-Op Symptoms and Rthfgyhxo-IXUZT-JT S: Patient calls for complaint of vaginal [...] verbalizes understanding of same documented in this [place] [address]-17-2023 Telephone encounter Note* Telephone Encounter - Sammy Gomez RN - 11/04/2022 11:16 AM EDT Reason for Disposition SEVERE post-op pain (e.g., excruciating, pain scale 8-10) that is not controlled with pain medications Caller has URGENT question and triager unable to answer question Protocols used: Post-Op Symptoms and Mznbujgci-ZZBBX-XM S: Patient calls for complaint of vaginal [...] of care. Patient verbalizes understanding of same [employer].Jvxhzq32-34-3666 History of Present illness Narrative* Nieves Ron MD - 08/14/2022 9:45 AM EDT HPI: Patient for ER follow up. Recently with LEEP/D&C for abnormal cells on Pap smear. Had routine follow-up and was doing well on July 26. About 5 days ago she started bleeding and it just remained heavy. She went to the [facility] ER yesterday with a relatively benign work-up. [...] PLAN: -Reviewed labs, notes and ultrasound from [facility] ER -Left-sided hydrosalpinx noted which is new [...] is her primary physician documented in this [facility]04-26-2023 History of Present illness Narrative* Nieves Ron MD - 08/14/2022 9:45 AM EDT HPI: Patient for ER follow up. Recently with LEEP/D&C for abnormal cells on Pap smear. Had routine follow-up and was doing well on July 26. About 5 days ago she started bleeding and it just remained heavy. She went to the [facility] ER yesterday with a relatively benign work-up. [...] PLAN: -Reviewed labs, notes and ultrasound from [facility] ER -Left-sided hydrosalpinx noted which is new [...] is her primary physician documented in this [facility]04-26-2023 Miscellaneous Notes* Addendum Note - Vince Waddell MA - 08/14/2022 9:45 AM EDTAddended by: VINCE WADDELL on: 09/02/2022 09:45 AM Modules accepted: Orders documented in this [facility]04-26-2023 Note* Addendum Note - Vince Waddell MA - 08/14/2022 9:45 AM EDTAddended by: VINCE WADDELL on: 09/02/2022 09:45 AM Modules accepted: Orders [facility] HospitalAkjtgn05-81-0711 Procedure [facility]04-07-2023 History of Present illness Narrative* Shante Worley [...] about 6 months (around 01/25/2023) for fu camelid fiber sorter. Repeat pap next visit Will continue with [...] preventative health maintenance follow-up. documented in this [facility]03-22-2023 Miscellaneous Notes* Perioperative Nursing Note - [...] All instrumentation was removed from the vagina. Alger, sponges and instruments were counted times two and noted to be correct. The patient tolerated the procedure weill. She was awakened from anesthesia and brought to the recovery room in stable condition. documented in this [facility]03-22-2023 Note* Perioperative Nursing Note - Nita Todd RN - 07/10/2022 5:15 PM EDT Instructions given with verbalized understanding tolerated clear liquid and cracker well [place] [id number] Note* Perioperative Nursing Note - Nita Todd RN - 07/10/2022 5:15 PM EDT Instructions given with verbalized understanding tolerated clear liquid and cracker well [place] [id number] Note* Op Note - Shante Worley MD [...] All instrumentation was removed from the vagina. Alger, sponges and instruments were counted times two and noted to be correct. The patient tolerated the procedure weill. She was awakened from anesthesia and brought to the recovery room in stable condition. [facility] Srxeaw76-98-2322 Note* Op Note - Shante Worley MD [...] All instrumentation was removed from the vagina. Alger, sponges and instruments were counted times two and noted to be correct. The patient tolerated the procedure weill. She was awakened from anesthesia and brought to the recovery room in stable condition. [facility] Inrwuu96-39-2936 Telephone encounter Note* Telephone Encounter - Antonieta Bernard - 07/02/2022 10:56 AM EDT Called insurance @ [phone] for utilization Management for the Provider Inquiry Department. Checking if outpatient CPT 56987 requires PA. Fax # S/w [place] to check. I was advised that CPT 29176 when done outpatient does not require PA. Call reference @ [id number]. [facility] HospitalTsopeu81-32-9327 Miscellaneous Notes* Telephone Encounter - Antonieta Bernard - 07/02/2022 10:56 AM EDT Called insurance @ [phone] for utilization Management for the Provider Inquiry Department. Checking if outpatient CPT 40828 requires PA. Fax # S/w [place] to check. I was advised that CPT 93797 when done outpatient does not require PA. Call reference @ [id number]. * Telephone Encounter - Antonieta Bernard - 06/28/2022 2:08 PM EST Patient seen in office today. Added hysteroscopy/D&C 74051 to surgery. Time and everything elsestays the same. Added to calendar and spoke with surgery scheduling to confirm. * Telephone Encounter - Antonieta Bernard - 06/10/2022 11:16 AM EST Please enter PAT orders: [facility] PAT: 07/04 @ 2:30PM Surgery:07/10 @ 3PM, CASE # [id number] Procedure: LEEP (45855) DX: N87.9 Anesthesia: GA Insurance: [place] [employer], phone # [phone]. On hold over 30 minutes. Hung up. Tried to submitRetail Optimizationa BEETmobile portal due to it being an [facility] plan. No auth required. Uploaded to media. * Telephone Encounter - Antonieta Bernard - 06/10/2022 10:52 AM EST Biopsy complete 06/07, apt 06/28 to review. Called to schedule for July to secure a date and time for her. Office # left. Ok to put call through to [place] for me to take. documented in this [facility]03-10-2023 Telephone encounter Note* Telephone Encounter - Antonieta Bernard - 06/28/2022 2:08 PM EST Patient seen in office today. Added hysteroscopy/D&C 90952 to surgery. Time and everything elsestays the same. Added to calendar and spoke with surgery scheduling to confirm. [facility] HospitalFdddmj31-56-9323 Miscellaneous Notes* Telephone Encounter - Antonieta Brenard - 06/28/2022 2:08 PM EST Patient seen in office today. Added hysteroscopy/D&C 46402 to surgery. Time and everything elsestays the same. Added to calendar and spoke with surgery scheduling to confirm. * Telephone Encounter - Antonieta Bernard - 06/10/2022 11:16 AM EST Please enter PAT orders: [facility] PAT: 07/04 @ 2:30PM Surgery:07/10 @ 3PM, CASE # [id number] Procedure: LEEP (61671) DX: N87.9 Anesthesia: GA Insurance: [place] [employer], phone # [phone]. On hold over 30 minutes. Hung up. Tried to submit[employer]ail Optimizationa [employer]mobile portal due to it being an [facility] plan. No auth required. Uploaded to media. * Telephone Encounter - Antonieta Bernard - 06/10/2022 10:52 AM EST Biopsy complete 06/07, apt 06/28 to review. Called to schedule for July to secure a date and time for her. Office # left. Ok to put call through to [place] for me to take. documented in this [facility]03-10-2023 History of Present illness Narrative* Shante [...] preventative health maintenance follow-up. documented in this [facility]02-21-2023 Telephone encounter Note* Telephone Encounter - Shante Worley MD - 06/11/2022 4:07 PM EST Rx sent to pharm [facility] HospitalVxidve01-86-1734 Miscellaneous Notes* Telephone Encounter - Shante Worley MD - 06/11/2022 4:07 PM EST Rx sent to pharm * Telephone Encounter - Coty Whitaker - 06/11/2022 12:18 PM EST Name of caller: lisa Chaudhry Contact phone number: [phone] Relationship to Patient: patient Provider: Dr Worley [...] return their call: Yes documented in this [facility]02-21-2023 Telephone encounter Note* Telephone Encounter - Coty Whitaker - 06/11/2022 12:18 PM EST Name of caller: lisa Chaudhry Contact phone number: [phone] Relationship to Patient: patient Provider: Dr Wolrey Practice: [facility] Chief Complaint/Reason for Call: Patient [...] business hours to return their call: Yes [facility] Woxbko49-95-9020 Telephone encounter Note* Telephone Encounter - Antonieta Bernard - 06/10/2022 11:16 AM EST Please enter PAT orders: [facility] PAT: 07/04 @ 2:30PM Surgery:07/10 @ 3PM, CASE # [id number] Procedure: LEEP (33325) DX: N87.9 Anesthesia: GA Insurance: [employer], phone # [phone]. On hold over 30 minutes. Hung up. Tried to submitvia BEETmobile portal due to it being an [employer] plan. No auth required. Uploaded to media. [facility] Twplhw00-82-4036 Miscellaneous Notes* Telephone Encounter - Antonieta Bernard - 06/10/2022 11:16 AM EST Please enter PAT orders: [facility] PAT: 07/04 @ 2:30PM Surgery:07/10 @ 3PM, CASE # [id number] Procedure: LEEP (00850) DX: N87.9 Anesthesia: GA Insurance: [employer], phone # [phone]. On hold over 30 minutes. Hung up. Tried to submitvia avail[employer]MD portal due to it being an [employer] plan. No auth required. Uploaded to media. * Telephone Encounter - Antonieta Bernard - 06/10/2022 10:52 AM EST Biopsy complete 06/07, apt 06/28 to review. Called to schedule for July to secure a date and time for her. Office # left. Ok to put call through to [place] for me to take. documented in this [facility]02-20-2023 Telephone encounter Note* Telephone Encounter - Antonieta Bernard - 06/10/2022 10:52 AM EST Biopsy complete 06/07, apt 06/28 to review. Called to schedule for July to secure a date and time for her. Office # left. Ok to put call through to [place] for me to take. [facility] HospitalMhrrfx89-27-0867 History of Present illness Narrative* Shante Worley [...] about 2 weeks (around 06/21/2022) for fu camelid fiber sorter results. Orders Placed This Encounter Procedures Biopsy [...] preventative health maintenance follow-up. documented in this [facility]01-16-2023 History of Present illness Narrative* Kerri Soto - 05/06/2022 8:30 AM EST us documented in this [facility]01-11-2023 Telephone encounter Note* Telephone Encounter - Antonieta Bernard - 05/01/2022 2:58 PM EST S/w Dr. Worley. Labs came back abnormal. Colposcopy and EMB needed due to abnormalities to further characterize prior to surgery. Will need a CHILD WELFARE CONSULTANT US then review with procedures with Dr. Worley after in office. Called and s/w the patient to schedule US then follow up apt to review and do the EMB and colposcopy. [facility] HospitalEzcjjc52-35-9076 Miscellaneous Notes* Telephone Encounter - Antonieta Bernard - 05/01/2022 2:58 PM EST S/w Dr. Worley. Labs came back abnormal. Colposcopy and EMB needed due to abnormalities to further characterize prior to surgery. Will need a CHILD WELFARE CONSULTANT US then review with procedures with Dr. [...] colpo results come back. documented in this [facility]01-10-2023 Telephone encounter Note* Telephone Encounter - Antonieta Bernard - 04/30/2022 2:49 PM EST Pap results in system. Please review results for patient and advise if ok to proceed with LEEP surgery scheduling. [facility] HospitalEmrpeo75-45-8902 Miscellaneous Notes* Telephone Encounter - Antonieta Bernard - 04/30/2022 2:49 PM EST Pap results in system. Please review results for patient and advise if ok to proceed with LEEP surgery scheduling. * Telephone Encounter - Antonieta Bernard - 04/24/2022 3:51 PM EST Consent signed. I have the surgery slip. Ready to schedule once colpo results come back. documented in this [facility]01-04-2023 Telephone encounter Note* Telephone Encounter - Antonieta Bernard - 04/24/2022 3:51 PM EST Consent signed. I have the surgery slip. Ready to schedule once colpo results come back. [facility] HospitalVojzzz54-41-2953 Miscellaneous Notes* Telephone Encounter - Antonieta Bernard - 04/24/2022 3:51 PM EST Consent signed. I have the surgery slip. Ready to schedule once colpo results come back. documented in this [facility]01-03-2023 History of Present illness Narrative* Shante Worley MD - 04/23/2022 11:45 AM EST Lisa Chaudhry [birth year]22 Date Of : 1980 HPI: Lisa Chaudhry is a 42 y.o. female The patient was seen today. She is here regarding needs to reschedule leep due to procedure cancelled. [facility] +hpv 06/12 [place] biopsy [place] 2-3 6:00 08/10 Also no [...] preventative health maintenance follow-up. documented in this [facility]11-18-2021 Chief complaint Narrative - Reported* An interactive audio and video telecommunication system which permits real time communications between the patient (at the originating site) and provider (at the distant site) was utilized to [facility] telehealth service. * Verbal consent was requested [...] someone who tested positive for covid today. [facility] [address] DO Work Phone: [phone]) 466-394111-16-2021 History of Present illness NarrativeThimarko is a [...] to a friend who tested + for COVID-19.[facility] [address] DO Work Phone: 1(692) 389-870008-22-2021 History of Present illness NarrativePatient is having [...] currently does not have a family doctor.-[facility] Work Phone: 1(116) 920-862503-22-2021 NoteHNO ID: [id number] Author: Vince Ogden Service: ? Author Type: Physician Tree Feller Operator Type: Progress Notes Filed: 07/10/2020 3:08 PM Note Text: Pt did not keep this scheduled appointment. [facility] note* Diagnosis Drug overdose, undetermined intent, initial encounter- Primary documented in this encounter [facility] Work Phone: Evaluation noteNo assessment information available [facility] Work Phone: Evaluation note* Diagnosis Abnormal uterine bleeding (AUB)- Primary Atypical endometrial cells on Pap smear Abnormal glandular Papanicolaou smear of cervix Severe dysplasia of cervix (WESTON III) Carcinoma in situ of cervix uteri Dysplasia of cervix uteri, unspecified documented in this encounter [facility] note* Diagnosis Dysplasia of cervix uteri, unspecified documented in this encounter [facility] note* Diagnosis Abnormal uterine bleeding (AUB)- Primary Atypical endometrial cells on Pap smear Abnormal glandular Papanicolaou smear of cervix Severe dysplasia of cervix (WESTON III) 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 documented in this encounter [facility] note* Diagnosis Abnormal uterine bleeding (AUB)- Primary Adnexal cyst documented in this encounter [facility] note* Diagnosis Abnormal uterine bleeding (AUB)- Primary Adnexal cyst documented in this encounter [facility] note* Diagnosis Abnormal uterine bleeding- Primary Unspecified disorder of menstruation and other abnormal bleeding from female genital tract Cervical dysplasia Dysplasia of cervix, unspecified documented in this encounter [facility] note* Diagnosis Metabolic encephalopathy- Primary Lethargy Other malaise and fatigue Nausea and vomiting Nausea with vomiting Acute UTI Urinary tract infection, site not specified Hypertension, unspecified type Hypertensive urgency Urinary tract infection without hematuria Dehydration Elevated random blood glucose level Nausea and vomiting Nausea with vomiting documented in this encounter [facility] note* Diagnosis Abnormal uterine bleeding- Primary Unspecified [...] unspecified type- Primary documented in this encounter [facility] Work Phone: Evaluation note* Diagnosis Encounter [...] a treatment center and is prescribed medications there.-[facility] Work Phone: History of Present illness Narrative* [...] of breath. Patient states partial relief with jyrb-rwx-mtnlpjz medications. * Patient reports that she has had swelling in her bilateral feet for two weeks. Patient denies any trauma recent or remote. Patient reports no improvement despite the use of elevation and compression stockings. -[facility] Work Phone: Hospital Discharge instructions* Instructions* Pamela Lopez PA-C - 08/12/2020 Patient is Medically Cleared. Return as needed. Go back to [facility] for further treatment. Follow up with PCP. Do not use substances other than those given to you by [facility]. documented in this [facility] Work Phone: Hospital Discharge instructions* Attachments The following attachments cannot be sent through Care Everywhere. * Hysteroscopy Discharge Instructions ([place]an) * Loop Electrosurgical Excision Procedure Discharge Instructions ([place]an) * General Anesthesia Discharge Instructions ([place]) documented in this [facility] Discharge instructions* Attachments The following attachments cannot be sent through Care Everywhere. * Adjustment Disorder ([place]an) * Tips on Positive Thinking ([place]) documented in this [facility] Work Phone: Reason for referral (narrative)No reason for referral information availableWParkview Health [facility] Work Phone: Summary Purpose Family History [...] FoundDocuments on File Type Date Recorded Patient Rand Butter Expl anation Advance Directives and Living Will Power of Balance Bridge Inspector Documents on File Type Date Recorded Patient Rand Butter Expl anation ACP-Advance Directive ACP-Power of Balance Bridge Inspector Advance Directive Response Recorded Date/ Time Advance Directives No July 21 14 11:31pm Living Will No July 21, 2013 11:31pm Power of Balance Bridge Inspector No July 21 4 11:31pm Latest Code [...] No July 22, 2013 12:31am Power of Balance Bridge Inspector No July 22 4 12:31am Date Activated Date Inactivated Comments 07/10/2022 1:28 PM 07/10/2022 7:19 PM Documents on File Type Date Recorded Patient Rand Butter Expl anation Advance Directives and Livin g [...] Care Everywhere. * Asthma Triggers: General Info (Comoran) * Asthma or COPD: Using a Metered-Dose Inhaler (Comoran) * Video: Quitting Smoking: It May Take Many Tries (Comoran) * Smoking: Stopping (Comoran) * Smoking Cessation: Health Benefits: General Info (Comoran) documented in this encounter* Attachments The following attachments cannot be sent through Care Everywhere. * Serum Sickness (Comoran) documented in this encounter Assessments Diagnosis Viral [...] PCP; previous pt of Dr. Nicki Nguyen, [facility]; Asthmahot and cold chills, nausea, temp got [...] section and content) DATE CREATED AUTHOR 10/13/2017 [facility] DATE CREATED AUTHOR AUTHOR'S ORGANIZ ATION 10/15/2017 [facility] DATE CREATED AUTHOR AUTHOR'S ORGANIZ ATION 10/15/2017 [facility] DATE CREATED AUTHOR AUTHOR'S ORGANIZ ATION 12/22/2017 [facility] DATE CREATED AUTHOR AUTHOR'S ORGANIZ ATION 01/29/2019 [facility] DATE CREATED AUTHOR AUTHOR'S ORGANIZ ATION 06/29/2020 [facility] DATE CREATED AUTHOR AUTHOR'S ORGANIZ ATION 08/17/2020 [facility] DATE CREATED AUTHOR AUTHOR'S ORGANIZ ATION 06/07/2021 [facility] DATE CREATED AUTHOR AUTHOR'S ORGANIZ ATION 12/20/2021 [facility] DATE CREATED AUTHOR AUTHOR'S ORGANIZ ATION 06/23/2023 [facility] DATE CREATED AUTHOR AUTHOR'S ORGANIZ ATION 06/23/2023 [facility] DATE CREATED AUTHOR AUTHOR'S ORGANIZ ATION 09/03/2023 [facility] DATE CREATED AUTHOR AUTHOR'S ORGANIZ ATION 09/03/2023 [facility] DATE CREATED AUTHOR AUTHOR'S ORGANIZ ATION 03/06/2024 [facility] DATE CREATED AUTHOR AUTHOR'S ORGANIZ ATION 07/13/2024 [facility] DATE CREATED AUTHOR AUTHOR'S ORGANIZ ATION 09/07/2024 [facility] DATE CREATED AUTHOR AUTHOR'S ORGANIZ ATION 09/24/2024 [facility] Reason for Visit (unrecogniz ed section and content) Reason Comments Cough Nasal Congestion Generalized Body Aches Reason Comments Other vaccine reaction Reason Comments Drug Overdose patient to ED11 with potential overdose on unknown substance. patient sent from [facility], patient noted to have dilated pupils and sleepy. patient admits to using $50 worth of Heroin yesterday at 1200. patient denies using any substance since then. patient was found by [facility] staff to have multiple suboxone patches on her. patient stated that they gave them to her. patient admitted to this RN that they were in her wallet and she brought them with her. patient is alert to voice, remains drowsy. Reason Comments Follow-up results Reason Onset Date Comments Surgery Scheduling 06/10/2022 Specialty Diagnoses / Procedures Referred By [facility] Referred To Contact Diagnoses Dysplasia of cervix uteri, unspecified Dysplasia of cervix uteri, unspecified [N87.9] Procedures NH CONIZATION CERVIX W/WO D&C RPR ELTRD EXC NH HYSTEROSCOPY BX ENDOMETRIUM&/POLYPC W/WO D&C LEEP,HYSTEROSCOPY, DILATION AND CURETTAGE HYSTEROSCOPY BIOPSY ENDOMETRIUM AND OR POLYPECTOMY Shante Worley MD [address] [place] [address] [facility] [address] [place] [address] Referral ID Status Reason Start Date Expiration Date Visits Re quested Visits Authorized [id number] 1 Reason Comments Post-op Visit 2 weeks Reason Comments Vaginal Bleeding Pt seen in ED 3 for vaginal bleeding, pt states they did an ultrasound at the EDPt states she has been bleeding very heavily since Friday with lots of clots and cramping Reason Onset Date Comments Post-op Problem 11/04/2022 Reason Comments Withdrawal Altered Mental Status Specialty Diagnoses / Procedures Referred By [facility] Referred To Contact Diagnoses Metabolic encephalopathy Lethargy Nausea and vomiting Acute UTI Hypertension, unspecified type Referral ID Status Reason Start Date Expiration Date Visits Re quested Visits Authorized [id number] 1 Reason Comments Follow-up Pap smear [...] Provi caitlyn, Attending Provider, Referring Provider Active Mold Closer Relationship Specialty Start Date End Date Konrad Hampton DO [address] [facility] [address] [place] [address] PCP - General Family Medicine 06/26/22 Mold Closer Relationship Specialty Start Date End Date Konrad Hampton DO [address] [facility] [address] [place] [address] PCP - General Family Medicine 06/26/22 Mold Closer Relationship Specialty Start Date End Date Konrad Hampton DO [address] [facility] [address] [place] [address] PCP - General Family Medicine 06/26/22 Team Status: Active Member Role Status Dates Konrad Hampton DO Primary Care Provi caitlyn, Referring Provider, Other Provider Active Dr. Scotty Don MD Attending Provider Active Team Status: Inactive Member Role Status Dates Konrad Hampton DO Primary Care Provider Active Dr. Sowmya Sauceda MD Attending Provider Active Mold Closer Relationship Specialty Start Date End Date Konrad Hampton DO [address] [facility] [address] [place] [address] PCP - General Family Medicine 06/26/22 Mold Closer Relationship Specialty Start Date End Date Konrad Hampton DO [address] [facility] [address] [place] [address] PCP - General Family Medicine 06/26/22 Mold Closer Relationship Specialty Start Date End Date Memo, KonradDO [address] [facility] [address] [place] [address] PCP - General Family Medicine 06/26/22 Mold Closer Relationship Specialty Start Date End Date Konrad Hampton DO [address] [facility] [address] [place] [address] PCP - General Family Medicine 06/26/22 Mold Closer Relationship Specialty Start Date End Date Konrad Hampton DO [address] [place] [address] [address] [place] [address] PCP - General Family Medicine 06/26/22 Mold Closer Relationship Specialty Start Date End Date Konrad Hampton DO [address] [facility] [address] [place] [address] PCP - General Family Medicine 06/26/22 Mold Closer Relationship Specialty Start Date End Date No, Physician [facility] PCP - General 03/24/24 Mold Closer Relationship Specialty Start Date End Date Leonardo Ashford MD [address] [place] [address] [address] [place] [address] PCP - General 02/03/20 Mold Closer Relationship Specialty Start Date End Date Leonardo Ashford MD [address] [place] [address] [address] [place] [address] PCP - General 02/03/20 Mold Closer Relationship Specialty Start Date End Date Leonardo Ashford MD [address] [place] [address] [address] [place] [address] PCP - General 02/03/20 Mold Closer Relationship Specialty Start Date End Date Leonardo Ashford MD [address] [place] [address] [address] [place] [address] PCP - General 02/03/20 Mold Closer Relationship Specialty Start Date End Date Leonardo Ashford MD [address] [place] [address] [address] [place] [address] PCP - General 02/03/20 Mold Closer Relationship Specialty Start Date End Date Leonardo Ashford MD [address] [place] [address] [address] [place] [address] PCP - General 02/03/20 Mold Closer Relationship Specialty Start Date End Date Leonardo Ashford MD [address] [place] [address] [address] [place] [address] PCP - General 02/03/20 Mold Closer Relationship Specialty Start Date End Date Leonardo Ashford MD [address] [facility] [address] [place], [place] [id number] PCP - General 02/03/20 Mold Closer Relationship Specialty Start Date End Date Konrad Hampton DO [address] [facility] [address] [place], [place] [id number] PCP - General Family Medicine 06/26/22 Mold Closer Relationship Specialty Start Date End Date Nicki Nguyen MD [facility], [address] [place], [place] [id number] [facility]CP - [facility] P[facility] 08/20/23 Konrad Hampton DO [address] [facility] [address] [place], [place] [id number] PCP - General Family Medicine 12/23/23 Mold Closer Relationship Specialty Start Date End Date Noni Pablo MD [address] [facility] [address] [place], [place] [id number] PCP - General Family Medicine 05/27/24 Team [...] Active St art: June 23, 2024 Noni Pabol MD Referring Provider Active Start : June 23, 2024 Dr. Mario Potts MD Attending Provider Active Start: June 23, 2024 Dr. Mario Potts MD Other Provider Active Sta rt: June 23, 2024 Mold Closer Relationship Specialty Start Date End Date Konrad Hampton DO [address] [facility] [address] [place], [place] [address] PCP - General Family Medicine 06/26/22 05/26/24 Noni Pablo MD [address] [place] [address] [address] [place], [place] [address] PCP - General Family Medicine 05/27/24 Mold Closer Relationship Specialty Start Date End Date Noni Pablo MD [address] [place] [address] [address] [place], [place] [id number] PCP - General Family Medicine 05/27/24 Mold Closer Relationship Specialty Start Date End Date Noni Pablo MD [address] [place] [address] [address] [place], [place] [address] PCP - General Family Medicine 05/27/24 Mold Closer Relationship Specialty Start Date End Date Noni Pablo MD [address] [place] [address] [address] [place], [place] [id number] PCP - General Family Medicine 05/27/24 Goals [...] Provid er: Nita Norris RN) Nozin Nasal Merchandising Director 62 % 1 ampule (COMPLETED) 1 ampule, [...] Shante Worley MD) lidocaine-EPINEPHrine (Xylocaine W/EPI) 1 %-1:[id number] injection (CANCELED) As needed, Starting on Fri07/10/22 [...] - Provider: Blanca Butler, TECHNOLOGIST - Comment: [id number]) LORazepam (ATIVAN) injection 1 mg 1 mg, [...] mL, Intravenous, Once in imaging, contrast, Per education dean (Radiology) for line patency check prior to contrast administration, Starting on Fri03/26/24 at 1018, For 1 dose sodium chloride (PF) (NS) 0.9 % contrast line flush 10 mL 10 mL, Intravenous, Once in imaging, contrast, Per education dean (Radiology) for line patency check, Starting on Fri03/26/24 at 1018, For 1 dose sodium chloride (PF) (NS) 0.9 % contrast line flush 80 mL(Linked Group 3) 80 mL, Intravenous, Once in imaging, contrast, Per education dean (Radiology), Starting on Fri03/26/24 at 1018, For [...] mL, Intravenous, Once in imaging, contrast, Per education dean (Radiology) for line patency check prior to contrast administration, Starting on Fri03/26/24 at 1018, For 1 dose And sodium chloride (PF) (NS) 0.9 % contrast line flush 80 mLJump to med 80 mL, Intravenous, Once in imaging, contrast, Per education dean (Radiology), Starting on Fri03/26/24 at 1018, For [...] BE BASED ON THE PRIMARY CLINICAL RECORDS. [facility] [employer] [facility]. provides no warranty or guarantee of the accuracy or completeness of information in this document.
[2024-10-31] VITALS (7 sets, daily range): BP systolic 123–142; BP diastolic 82–97; PULSE 64–98; RESP 16–18; TEMP 36.8–37.2; O2SAT 93–100
[2024-10-31 00:20] LABS: Hematocrit 45.6 % (37-47); Hemoglobin 14.6 g/dL (12.0-15.0); Immature Granulocytes Count 1.000 X10^3/uL (0.0-0.0); Mean Corp Hgb Conc 32.0 g/dL (32-36); Mean Corpuscular Volume 92.1 fL (81-99); Mean Platelet Vol. 11.7 fl (6.2-12.0); NRBC Flagged by Analyzer 0 % (0-5); POSITIVE DIFFERENTIAL YES; POSITIVE MORPHOLOGY YES; Platelet Count 410 K/mm3 (150-450); RBC Distribution Width CV 14.4 % (11.6-14.6); RBC Distribution Width SD 48.8 fl (35.1-43.9); Red Blood Count 4.95 M/mm3 (4.2-5.4); White Blood Count 22.1 K/mm3 (4.4-11.0)
[2024-10-31 00:26] LABS: Differential Indicated SCAN CRITERIA MET
[2024-10-31 00:54] LABS: Differential Comment SCANNED
[2024-10-31 01:24] LABS: AST(SGOT) 73 U/L (<=31); Alanine Aminotransfer ALT/SGPT 95 U/L (<=34); Albumin, Serum 3.4 g/dL (3.5-5.0); Alkaline Phosphatase 86 U/L (35-104); Anion Gap 14 (5-15); BUN 108 mg/dL (4-19); BUN/Creat Ratio 59.0 RATIO (10-20); Calcium,Total 8.7 mg/dL (7.6-11.0); Carbon Dioxide 21.1 mmol/L (21.0-32.0); Chloride 118 mmol/L (98-108); Estimated Creatinine Clearance 37.32 ml/min (50-250); Globulin 3.8 g/dL (2.2-4.2); Glucose 170 mg/dL (70-99); Potassium 3.3 mmol/L (3.3-5.1)
--- NOTE | 2024-10-31 01:26 | ECHOD_ITS ---
Reason For Study Reason For Study: Endocarditis Procedure This was a 2D Doppler, Color Flow transthoracic echocardiogram. Exam performed portable in patient room. Left Ventricle Normal LV size. Mild concentric left ventricular hypertrophy. The LV ejection fraction is 65 %. Stage 1 diastolic dysfunction. Right Ventricle Normal right ventricle. Atria The left and right atria are normal. Mitral Valve Mild (1+) mitral valve insufficiency. Tricuspid Valve Trivial tricuspid valve insufficiency. Normal pulmonary artery pressure. Aortic Valve Trisinus/trileaflet aortic valve. Pulmonic Valve Trivial pulmonic valve insufficiency. Great Vessels Normal sized aortic root. Pericardium/Pleural No pericardial effusion. MMode/2D Measurements & Calculations LVIDd: 3.9 cm IVSd: 1.2 cm Ao root diam: 3.7 cm LVIDs: 2.3 cm LVPWd: 0.83 cm RVDd: 3.4 cm FS: 39.7 % LAV(MOD-bp): 39.0 ml LVAd ap4: 23.5 cm2 SV(MOD-sp4): 40.9 ml LAV(MOD-bp) Indexed: 22.6 ml/m2 LVLd ap4: 7.4 cm SI(MOD-sp4): 23.7 ml/m2 LAV(MOD-sp2): 42.7 ml EDV(MOD-sp4): 61.9 ml LAV(MOD-sp4): 29.4 ml EDV(sp4-el): 63.1 ml LVAs ap4: 11.6 cm2 LVLs ap4: 6.2 cm ESV(MOD-sp4): 21.0 ml ESV(sp4-el): 18.4 ml EF(MOD-sp4): 66.0 % EF(sp4-el): 70.9 % SV(sp4-el): 44.8 ml LA A4 area: 12.3 cm2 LA dimension(2D): 2.8 cm RA A4 area: 12.2 cm2 TAPSE: 2.3 cm Time Measurements MV dec time: 0.25 sec Doppler Measurements & Calculations MV E max maximino: 59.1 cm/sec Lat Peak E' Maximino: 14.5 cm/sec Med Peak E' Maximino: 9.5 cm/sec MV A max maximino: 59.4 cm/sec E/E' lat: 4.1 E/E' med: 6.2 MV E/A: 0.99 MV V2 max: 101.6 cm/sec MV P1/2t max maximino: 104.2 cm/sec Ao V2 max: 138.1 cm/sec MV max P.1 mmHg MV P1/2t: 88.3 msec Ao max P.6 mmHg MV V2 mean: 56.2 cm/sec Ao V2 mean: 92.6 cm/sec MV mean P.5 mmHg MV dec slope: 345.4 cm/sec2 Ao mean P.9 mmHg MV V2 VTI: 21.3 cm MVA(P1/2t): 2.5 cm2 Ao V2 VTI: 29.3 cm AV (velocity ratio): 0.82 LV V1 max: 105.9 cm/sec PA V2 max: 104.1 cm/sec TR max maximino: 212.8 cm/sec LV V1 max P.5 mmHg TR max P.1 mmHg LV V1 mean P.5 mmHg LV V1 mean: 74.7 cm/sec LV V1 VTI: 24.0 cm ECHO/Echo Complete Interpretation Summary Mild concentric left ventricular hypertrophy. The LV ejection fraction is 65 %. Stage 1 diastolic dysfunction. Mild (1+) mitral valve insufficiency. No valvular vegetations noted on this surface study. Consider ALEIDA for further e valuation if strong clinical suspicion. Ordering Physician: Duke Benavides Performed By: Wes Xiong RCS
[2024-10-31] MEDS: Dextrose 5%-Water (1000mL Bag) 1,000 ML 1000 ML IV (01:52)
[2024-10-31 02:08] LABS: Magnesium 3.1 mg/dL (1.5-2.2)
[2024-10-31] MEDS: Vancomycin HCl 1,500 MG in 0.9% Normal Saline (500mL Bag) 500 ML 250 MG IV (02:10)
--- NOTE | 2024-10-31 02:30 | PCM.RX.CS ---
Consult Antibiotic Management Pharmacy has been consulted to manage selected antibiotic: Vancomycin Type of Intervention Type of Consult: New start Suspected Infection Suspected Infection: Sepsis Labs Labs: Sodium 153 mmol/L (133-145) H 10/30/24 23:45 Potassium 3.3 mmol/L (3.3-5.1) 10/30/24 23:45 Chloride 118 mmol/L (98-108) H 10/30/24 23:45 Carbon Dioxide 21.1 mmol/L (21.0-32.0) 10/30/24 23:45 Anion Gap 14 (5-15) 10/30/24 23:45 BUN 108 mg/dL (4-19) H* 10/30/24 23:45 Creatinine 1.83 mg/dL (0.70-1.20) H 10/30/24 23:45 Est GFR (MDRD) Non-Af 34 (>60) L 10/30/24 23:45 BUN/Creatinine Ratio 59.0 RATIO (10-20) H 10/30/24 23:45 Glucose 170 mg/dL (70-99) H 10/30/24 23:45 Pharmacy Plan for Drug Dosing Pharmacy Plan for Drug Dosing: NEW START IV VANCOMYCIN Consulting Physician: Kennedy Indication: sepsis/UTI/concern for endocarditis Goal Trough: 15-20 SrCr: 1.83 mg/dL CrCl: 37 mL/min Comments: loading dose of 1500mg given 10/31 @ 0210 Vancomycin Dose: Will start 750mg Q24 (11/01 @ 0200) and get a trough prior to the 3rd total dose. Pending Level: 11/02/24 @ 0130 Pharmacy Service will continue to monitor and adjust dosing as required.
[2024-10-31] MEDS: Dextrose 5%-Water (1000mL Bag) 1,000 ML 100 ML IV (03:01)
[2024-10-31] MEDS: Piperacil/Tazobactam 3.375 GM in 0.9% Normal Saline (50mL MB+) 50 ML IV ×3 (04:59→21:43)
[2024-10-31 07:12] LABS: Anion Gap 12 (5-15); BUN 87 mg/dL (4-19); BUN/Creat Ratio 59.5 RATIO (10-20); Calcium,Total 8.7 mg/dL (7.6-11.0); Carbon Dioxide 21.8 mmol/L (21.0-32.0); Chloride 115 mmol/L (98-108); Estimated Creatinine Clearance 46.46 ml/min (50-250); Glucose 84 mg/dL (70-99); Potassium 3.5 mmol/L (3.3-5.1)
[2024-10-31] MEDS: Heparin Injection (Vial) 5,000 UNIT/ML VIAL 5000 UNIT SC ×2 (09:29→21:43)
[2024-10-31] MEDS: Dext 5%-0.45% NS 1,000 ML 150 ML IV ×2 (09:30→18:45)
[2024-10-31] MEDS: 0.9% Saline Lock 10 ML Syringe IV ×2 (09:31→23:46)
--- NOTE | 2024-10-31 15:05 | PCM.PN.HOSP ---
Reason for Visit Chief Complaint: Weakness and poor p.o. intake Subjective Subjective Patient was seen and examined today, she has to go back to bed-she is sitting in her chair-I told her that lunch would be served soon but she states she is tired wants to go back to bed. [facility] called and her blood culture was positive for E. coli, I had decided to drop her vancomycin IV off earlier today and just treat her with IV Zosyn. Objective Data Objective Data Vital Signs: Vital Signs Temp Pulse Resp BP Pulse Ox O2 Del Method 98.3 F 64 17 132/91 H 98 Room Air 10/31/24 14:12 10/31/24 14:12 10/31/24 14:12 10/31/24 14:12 10/31/24 14:12 10/31/24 14:12 Oxygen Delivery Method Room Air Weight: 60.9 kg Body Mass Index (BMI) 20.4 Intake & Output: Intake and Output for Last 24 Hours 10/29/24 10/30/24 10/31/24 23:59 23:59 23:59 Intake Total 220 / 220 2588.33 / 2588.33 Output Total 200 / 200 950 / 950 Balance 1638.33 / 1638.33 Lab / Micro Data 10/30/24 23:45 10/31/24 05:40 Labs: Laboratory Results - last 24 hr 10/30/24 23:45: WBC 22.1 H, RBC 4.95, Hgb 14.6, Hct 45.6, MCV 92.1, MCH 29.5, MCHC 32.0, RDW Std Deviation 48.8 H, RDW Coeff of Mukund 14.4, Plt Count 410, MPV 11.7, Immature Gran % (Auto) 4.500 H, Neut % (Auto) 70.7 H, Lymph % (Auto) 16.6 L, Whiteside % (Auto) 7.6, Eos % (Auto) 0.5, Baso % (Auto) 0.1, Absolute Neuts (auto) 15.6 H, Absolute Lymphs (auto) 3.67, Nucleated RBC % 0, Differential Comment SCANNED, Sodium 153 H, Potassium 3.3, Chloride 118 H, Carbon Dioxide 21.1, Anion Gap 14, BUN 108 H*, Creatinine 1.83 H, Estim Creat Clear Calc 37.32 L, Est GFR (MDRD) Non-Af 34 L, BUN/Creatinine Ratio 59.0 H, Glucose 170 H, Hemoglobin A1c 5.9 H, Calcium 8.7, Phosphorus 3.1, Magnesium 3.1 H, Total Bilirubin 0.27, AST 73 H, ALT 95 H, Alkaline Phosphatase 86, Total Protein 7.2, Albumin 3.4 L, Globulin 3.8, Albumin/Globulin Ratio 0.9 10/31/24 05:40: Sodium 149 H, Potassium 3.5, Chloride 115 H, Carbon Dioxide 21.8, Anion Gap 12, BUN 87 H, Creatinine 1.47 H, Estim Creat Clear Calc 46.46 L, Est GFR (MDRD) Non-Af 45 L, BUN/Creatinine Ratio 59.5 H, Glucose 84, Calcium 8.7 Physical Exam Const alert, oriented x3 and no apparent distress Constitutional Narrative: Patient appears older than her stated age, she appears fatigued General Appearance: cooperative and well developed Orientation / Consciousness: awake, oriented to person, oriented to place and oriented to time HEENT normocephalic, head/scalp atraumatic and moist oral mucous membranes Eyes PERRL, EOMs intact bilaterally and conjunctivae normal Neck supple, no JVD, thyroid normal and no carotid bruits General: trachea midline Resp normal respiratory effort, no retractions, no use of accessory muscles and clear to auscultation bilaterally Auscultation: Negative for rales, rhonchi or wheezes Cardio regular rate, regular rhythm, no murmurs, no rub and no gallops GI normal to inspection, nondistended, normoactive bowel sounds, soft to palpation, non-tender and non-distended Extremity no clubbing, cyanosis or edema Skin no rashes or lesions noted General Skin Exam: no breakdown Neuro oriented x3, CN's II-XII intact bilaterally, no focal motor deficits and no sensory deficits noted Sensorium / Orientation: awake and alert Speech: speech normal Psych affect normal Assessment & Plan Assessment/Plan (1) UTI (urinary tract infection): PLAN: Plan 1. Sepsis secondary to E. coli from severe urinary tract infection-again patient will remain on IV Zosyn, labs will be monitored #2 severe dehydration-patient was placed on D5 half-normal saline today, labs will be rechecked tomorrow #3 opiate addiction-patient has already completed withdrawal at this time, complicates care, management, recovery, and prognosis. I will ask her tomorrow whether she wants to talk with addiction medical social consultant. #4 chronic depression/anxiety-patient will continue on her home medications #5 acute debility-patient will be seen by PT and OT Total clinical time spent by myself addressing patient's medical issues, reviewing all her data, and collaborating with patient's care team: 35 minutes Charges/Coding Visit Charges Inpatient E&M: 67140 Subs Hosp L2
[2024-11-01] MEDS: Dext 5%-0.45% NS 1,000 ML 150 ML IV ×2 (01:49→09:35)
[2024-11-01 03:40] VITALS: BP 135/96; PULSE 101; RESP 18; TEMP 37.2; O2SAT 94
[2024-11-01] MEDS: Piperacil/Tazobactam 3.375 GM in 0.9% Normal Saline (50mL MB+) 50 ML IV ×3 (05:28→21:59)
[2024-11-01 08:37] VITALS: BP 144/92; PULSE 82; RESP 18; TEMP 37.1; O2SAT 99
[2024-11-01] MEDS: Heparin Injection (Vial) 5,000 UNIT/ML VIAL 5000 UNIT SC ×2 (09:36→21:53)
[2024-11-01 11:14] LABS: White Blood Count 16.3 K/mm3 (4.4-11.0)
[2024-11-01 11:15] LABS: Differential Indicated MANUAL DIFF; Hematocrit 41.2 % (37-47); Hemoglobin 13.3 g/dL (12.0-15.0); Mean Corp Hgb Conc 32.3 g/dL (32-36); Mean Corpuscular Volume 91.2 fL (81-99); Mean Platelet Vol. 11.7 fl (6.2-12.0); POSITIVE DIFFERENTIAL YES; Platelet Count 321 K/mm3 (150-450); RBC Distribution Width CV 13.6 % (11.6-14.6); RBC Distribution Width SD 45.6 fl (35.1-43.9); Red Blood Count 4.52 M/mm3 (4.2-5.4)
[2024-11-01 11:18] LABS: Neutrophil-Segmented 65 % (47-70); Total Cells Counted 100 (MANUAL DIFF)
[2024-11-01 11:21] LABS: Reactive Lymphocyte 1+
--- NOTE | 2024-11-01 11:55 | CASEMGMT ---
DILLON NAIDU Face to Face with patient for initial transition planning/care coordination assessment. DILLON NAIDU introduced self and role at [facility]. Patient lying in bed, alert and oriented. Patient willing to participate in assessment and is able to answer all questions appropriately. Care providers, pharmacy, and demographics verified. Strata:1 PCP: Bev Specialists: none Preferred Pharmacy: [facility] Insurance: [employer] Prescription Benefit: yes Living Will/HPOA: none LNOK: mother, sister Living Arrangements: Patient lives with mother in a 2 story home with bed and bath on first floor. Ptaient is independent at home. Transportation: self, mother DME/HHC: Patient denies DME in the home. NO previous HHC or SNF. Patient states that she uses heroin and cocaine and last used a week ago and is interested in Drug Rehab. DILLON NAIDU udpated SW. Patient wishes to discharge to possible rehab and mother and sister states they cannot stay with them. Patient states she has no further needs or concerns at this time. CM to follow for discharge planning needs that may arise. Disposition Plan: Drug Rehab, SW notifiied. Leena PICHARDO, RN, CM
[2024-11-01 14:35] VITALS: BP 141/82; PULSE 77; RESP 17; TEMP 37.1; O2SAT 99
--- NOTE | 2024-11-01 16:02 | CASEMGMT ---
Social Work As per CM, pt is interested in inpt drug rehab. SW left [facility] with [employer] a message requesting she see pt tomorrow. CHARIS Emery
--- NOTE | 2024-11-01 16:09 | CHAPLAIN ---
Type of Pastoral Visit ___ Initial Visit ___ Follow-up Visit ___ On-call Visit ___ General Patient Visit ___ Spiritual Assessment ___ Family Conference ___ Bereavement ___ Rapid Response ___ Code Blue ___ Other (describe below) Pastoral Care Referral From ___ Patient ___ Family ___ Nurse ___ Physician ___ Negotiations Director ___ Shipping And Receiving Supervisor ___ Other (describe below) Sacrament/Intervention ___ Active listening ___ Anointing ___ Jain ___ Bereavement ___ Communion ___ Amie exploration ___ ___ Life review ___ Prayer ___ Reconciliation ___ Sacrament of Sick ___ Supportive presence ___ Wedding ___ Other (describe below) Pastoral Comments door to patient room is closed and once opened this web portal developer sees patient is sleeping with covers over her head; therefore this web portal developer did not disturb the patient
--- NOTE | 2024-11-01 16:57 | PN.HOSP_ITS ---
Reason for Visit Chief Complaint: Weakness and poor p.o. intake Subjective Subjective Patient was seen and examined today, she would like to be released to go home but she has nowhere to go, her family wants her to go to an inpatient detox program, patient has agreed to talk with addiction social welfare administrator. Patient's blood culture drawn at [facility] was positive for E. coli, I called and they do not have sensitivities however for the organism. Patient's white blood cell count today was improved Objective Data Objective Data Vital Signs: Vital Signs Temp Pulse Resp BP Pulse Ox O2 Del Method 98.7 F 77 17 141/82 H 99 Room Air 11/01/24 14:35 11/01/24 14:35 11/01/24 14:35 11/01/24 14:35 11/01/24 14:35 11/01/24 14:35 Oxygen Delivery Method Room Air Weight: 60.9 kg Body Mass Index (BMI) 20.4 Intake & Output: Intake and Output for Last 24 Hours 10/30/24 10/31/24 11/01/24 23:59 23:59 23:59 Intake Total 220 / 220 3908.33 / 3908.33 2640 / 2640 Output Total 200 / 200 2600 / 2600 600 / 600 Balance 1308.33 / 1308.33 2040 / 2040 Lab / Micro Data 11/01/24 09:27 10/31/24 05:40 Labs: Laboratory Results - last 24 hr 11/01/24 09:27: WBC 16.3 H, RBC 4.52, Hgb 13.3, Hct 41.2, MCV 91.2, MCH 29.4, MCHC 32.3, RDW Std Deviation 45.6 H, RDW Coeff of Mukund 13.6, Plt Count 321, MPV 11.7, Neut % (Auto) Not Reportable, Absolute Neuts (auto) 10.6 H, Absolute Lymphs (auto) 3.58, Total Counted 100, Neutrophils % (Manual) 65, Lymphocytes % (Manual) 22, Monocytes % (Manual) 5, Eosinophils % (Manual) 1, Metamyelocytes % 3 H, Myelocytes % 3 H, Promyelocytes % 1 H, Reactive Lymphocytes 1+, Platelet Estimate A Radiography Diagnostic Testing: Radiology Impression Echocardiogram 10/31/24 01:26 Interpretation Summary Mild concentric left ventricular hypertrophy. The LV ejection fraction is 65 %. Stage 1 diastolic dysfunction. Mild (1+) mitral valve insufficiency. No valvular vegetations noted on this surface study. Consider ALEIDA for further evaluation if strong clinical suspicion. Ordering Physician: Duke Benavides Performed By: Wes Xiong RCS Physical Exam Narrative alert, oriented x3 and no apparent distress Constitutional Narrative: Patient appears older than her stated age, she appears fatigued General Appearance: cooperative and well developed Orientation / Consciousness: awake, oriented to person, oriented to place and oriented to time HEENT normocephalic, head/scalp atraumatic and moist oral mucous membranes Eyes PERRL, EOMs intact bilaterally and conjunctivae normal Neck supple, no JVD, thyroid normal and no carotid bruits General: trachea midline Resp normal respiratory effort, no retractions, no use of accessory muscles and clear to auscultation bilaterally Auscultation: Negative for rales, rhonchi or wheezes Cardio regular rate, regular rhythm, no murmurs, no rub and no gallops GI normal to inspection, nondistended, normoactive bowel sounds, soft to palpation, non-tender and non-distended Extremity no clubbing, cyanosis or edema Skin no rashes or lesions noted General Skin Exam: no breakdown Neuro oriented x3, CN's II-XII intact bilaterally, no focal motor deficits and no sensory deficits noted Sensorium / Orientation: awake and alert Speech: speech normal Psych affect normal Assessment & Plan Assessment/Plan (1) Sepsis: (2) UTI (urinary tract infection): PLAN: Plan 1. Sepsis secondary to E. coli from severe urinary tract infection-again patient will remain on IV Zosyn, labs will be monitored as indicated #2 severe dehydration-patient's BUN and creatinine is improved, I will continue with IV fluids at a lower rate #3 opiate addiction-patient has already completed withdrawal at this time, complicates care, management, recovery, and prognosis. I will ask her tomorrow whether she wants to talk with addiction social welfare administrator. #4 chronic depression/anxiety-patient will continue on her home medications #5 acute debility-patient will be seen by PT and OT Total clinical time spent by myself addressing patient's medical issues, reviewing all her data, and collaborating with patient's care team: 35 minutes Charges/Coding Visit Charges Inpatient E&M: 51840 Subs Hosp L2
[2024-11-01 21:40] VITALS: BP 128/78; PULSE 98; RESP 16; TEMP 36.7; O2SAT 97
[2024-11-01] MEDS: 0.9% Saline Lock 10 ML Syringe IV (21:59)
[2024-11-01] MEDS: Dext 5%-0.45% NS 1,000 ML 75 ML IV (22:21)
[2024-11-02 02:45] VITALS: BP 145/91; PULSE 100; RESP 18; TEMP 36.9; O2SAT 95
[2024-11-02 06:10] VITALS: BP 137/87; PULSE 94; RESP 14; TEMP 36.7; O2SAT 96
[2024-11-02 06:11] LABS: Hematocrit 39.2 % (37-47); Hemoglobin 13.0 g/dL (12.0-15.0); Mean Corp Hgb Conc 33.2 g/dL (32-36); Mean Corpuscular Volume 89.9 fL (81-99); Mean Platelet Vol. 11.7 fl (6.2-12.0); POSITIVE COUNT YES; POSITIVE MORPHOLOGY YES; Platelet Count 311 K/mm3 (150-450); RBC Distribution Width CV 13.4 % (11.6-14.6); RBC Distribution Width SD 44.5 fl (35.1-43.9); Red Blood Count 4.36 M/mm3 (4.2-5.4); White Blood Count 14.5 K/mm3 (4.4-11.0)
[2024-11-02] MEDS: Piperacil/Tazobactam 3.375 GM in 0.9% Normal Saline (50mL MB+) 50 ML IV (06:13)
[2024-11-02 06:19] LABS: Differential Indicated MANUAL DIFF
[2024-11-02 06:38] LABS: Anion Gap 10 (5-15); BUN 12 mg/dL (4-19); BUN/Creat Ratio 13.5 RATIO (10-20); Calcium,Total 8.8 mg/dL (7.6-11.0); Carbon Dioxide 25.7 mmol/L (21.0-32.0); Chloride 110 mmol/L (98-108); Estimated Creatinine Clearance 79.42 ml/min (50-250); Glucose 114 mg/dL (70-99); Potassium 3.5 mmol/L (3.3-5.1)
[2024-11-02 06:52] VITALS: O2SAT 93
[2024-11-02 06:54] LABS: Neutrophil-Band 1 % (0-5); Neutrophil-Segmented 56 % (47-70); Total Cells Counted 100 (MANUAL DIFF)
[2024-11-02] MEDS: Dext 5%-0.45% NS 1,000 ML 75 ML IV (09:00)
[2024-11-02 09:03] VITALS: BP 138/105; PULSE 90; RESP 16; TEMP 37; O2SAT 98
[2024-11-02] MEDS: 0.9% Saline Lock 10 ML Syringe IV ×2 (09:08→12:21)
[2024-11-02] MEDS: Heparin Injection (Vial) 5,000 UNIT/ML VIAL 5000 UNIT SC (09:09)
--- NOTE | 2024-11-02 10:11 | ADDICTION ---
Met with patient per request to discuss tx options. She reports that her sister is taking her to [facility] tx center. TW offered alternative tx resources if this center doesn't work.
[2024-11-02 10:59] VITALS: BP 131/96; PULSE 102; RESP 16; TEMP 37.3; O2SAT 95
--- NOTE | 2024-11-02 11:38 | DCINST_ITS ---
Discharge Instructions DC O2, CPAP, BIPAP needs Home O2 Discharge instructions: No Dressing / Incision Discharge Activity: Return to Normal Activity Weight Bearing Status: Full weight bearing Follow Up Care Test Results: Test results from this visit will be discussed in further detail at your follow- up appointment, if applicable. Discharge Plan Admission Admit Date/Time: 10/30/24 22:49 Primary Reason for Your Visit: Sepsis secondary to urinary tract infection Attending Provider: Zac Mix Primary Care Provider: Noni Pablo Consulting Providers: Duke Benavides Discharge Orders/Prescriptions Prescriptions: New nicotine 14 mg/24 hr Patch 24 Hour 14 mg transdermal DAILY Qty: 30 0RF levofloxacin 750 mg tablet 750 mg PO DAILY Qty: 5 0RF Rx Instructions: Start on 11/03/2024 Continued albuterol sulfate [Ventolin HFA] 1 INHALER inhaler 1 puff inhalation Q6H PRN PRN (Reason: Wheezing) Patient Comments: asthma buspirone 5 mg tablet 5 mg PO TID escitalopram oxalate 20 mg tablet 20 mg PO DAILY zolpidem 5 mg tablet 5 mg PO QHS Referrals / Follow Up: Noni Pablo MD [Primary Care Provider] - Disposition Disposition (needs filled in before D/C Order can be placed): Home, Self Care
--- NOTE | 2024-11-02 11:43 | PCM.DC.SUM ---
Providers Date of Admission: 10/30/24 Date of Discharge: 11/02/24 Primary Care Physician: Noni Pablo MD Reason For Visit: UTI W/ CONCERN FOR SEPSIS Diagnosis Discharge Diagnosis (1) Sepsis: Status: Acute Code(s): A41.9 - Sepsis, unspecified organism (2) UTI (urinary tract infection): Status: Acute Code(s): N39.0 - Urinary tract infection, site not specified Plan 1. Sepsis secondary to E. coli from severe urinary tract infection-again patient will remain on IV Zosyn, labs will be monitored as indicated #2 severe dehydration-patient's BUN and creatinine is improved, I will continue with IV fluids at a lower rate #3 opiate addiction-patient has already completed withdrawal at this time, complicates care, management, recovery, and prognosis. I will ask her tomorrow whether she wants to talk with addiction administrator social welfare. #4 chronic depression/anxiety-patient will continue on her home medications #5 acute debility-patient will be seen by PT and OT #6 homelessness Total clinical time spent by myself addressing patient's medical issues, reviewing all her data, and collaborating with patient's care team: 35 minutes Medications at Discharge Home Medications albuterol sulfate 90 mcg/actuation aerosol inhaler (Ventolin HFA) 1 puff inhalation Q6H PRN PRN Wheezing 02/27/13 buspirone 5 mg tablet 5 mg PO TID mental health 06/23/24 escitalopram oxalate 20 mg tablet 20 mg PO DAILY mental health 06/23/24 zolpidem 5 mg tablet 5 mg PO QHS sleep 06/23/24 levofloxacin 750 mg tablet 750 mg PO DAILY #5 tabs 11/02/24 nicotine 14 mg/24 hr daily transdermal patch 14 mg transdermal DAILY #30 ea 11/02/24 Hospital Course Operations None Procedures 2-D Echocardiogram Summary of Care Provided Minutes Spent on Discharge: 31 Hospital Course: This 44-year-old white female was directly admitted to PCU from an outside hospital where she went for evaluation of generalized weakness and dehydration, patient was a daily heroin user until approximately a week ago when she stopped cold turkey. She had significant withdrawal symptoms with nausea vomiting and poor p.o. intake., She had been staying with a friend and she had severe weakness and was brought to the emergency room at [facility] in [place] for evaluation. Blood cultures were obtained, labs were obtained which showed a white blood cell count of 24,000, creatinine was elevated at 2.17, BUN was 136, lactic acid was 2.7, and urinalysis indicated a urinary tract infection. Talk screen was positive for fentanyl, patient was given IV fluids and IV Rocephin and transferred to [facility] for further care, patient was admitted to PCU and IV antibiotics were continued as well as IV fluids, labs were monitored, she was seen by addiction administrator social welfare and she stated that her sister was going to take her to an inpatient detox facility at the time of discharge from [facility]. On 11/02/2024, patient was seen and examined: On examination she appeared in good health and spirits, she does not appear to be in any distress. Vital signs as documented. Skin warm and dry and without overt rashes. Neck without JVD, thyroid appears normal, trachea is midline, neck is supple. Lungs clear, normal air movement was noted. Heart exam notable for regular rhythm, normal sounds and absence of murmurs, rubs or gallops. Abdomen unremarkable and without evidence of organomegaly, masses, or abdominal aortic enlargement, bowel sounds are present in all 4 quadrants, no abdominal tenderness was noted. Extremities nonedematous, no cyanosis was noted, no clubbing was noted. Neuro: Cranial nerves II through XII are grossly intact, no focal motor deficits were noted, sensation to light touch and pinprick is intact, motor exam 5/5 throughout. Psych: Patient is alert and oriented x3, she does not appear anxious or depressed, she does not appear agitated. Patient was discharged in stable condition on 11/02/2024. Weight / BMI Weight Weight: 60.9 kg Body Mass Index (BMI) 20.4 ABG / Lab / Microbiology Data 11/02/24 05:19 11/02/24 05:19 Laboratory: Laboratory Results - last 24 hr 11/02/24 05:19: WBC 14.5 H, RBC 4.36, Hgb 13.0, Hct 39.2, MCV 89.9, MCH 29.8, MCHC 33.2, RDW Std Deviation 44.5 H, RDW Coeff of Mukund 13.4, Plt Count 311, MPV 11.7, Neut % (Auto) Not Reportable, Absolute Neuts (auto) 8.3 H, Absolute Lymphs (auto) 4.79 H, Total Counted 100, Neutrophils % (Manual) 56, Band Neutrophils % 1, Lymphocytes % (Manual) 33, Monocytes % (Manual) 5, Eosinophils % (Manual) 2, Metamyelocytes % 3 H, Platelet Estimate ADEQUATE, Ovalocytes 2+, Sodium 146 H, Potassium 3.5, Chloride 110 H, Carbon Dioxide 25.7, Anion Gap 10, BUN 12, Creatinine 0.86, Estim Creat Clear Calc 79.42, Est GFR (MDRD) Non-Af 85, BUN/Creatinine Ratio 13.5, Glucose 114 H, Calcium 8.8 Radiography Diagnostic Testing: Radiology Impression Echocardiogram 10/31/24 01:26 Interpretation Summary Mild concentric left ventricular hypertrophy. The LV ejection fraction is 65 %. Stage 1 diastolic dysfunction. Mild (1+) mitral valve insufficiency. No valvular vegetations noted on this surface study. Consider ALEIDA for further evaluation if strong clinical suspicion. Ordering Physician: Duke Benavides Performed By: Wes Xiong RCS D/C Instructions Weight Bearing Status: Full weight bearing DC O2, CPAP, BIPAP Needs Home O2 Discharge instructions: No Meaningful Use Info Meaningful Use Meaningful Use Diagnoses (Choose all that apply): None applicable Discharge Plan Admission Admit Date/Time: 10/30/24 22:49 Primary Reason for Your Visit: Sepsis secondary to urinary tract infection Attending Provider: Zac Mix Primary Care Provider: Noni Pablo Consulting Providers: Duke Benavides Discharge Orders/Prescriptions Prescriptions: New nicotine 14 mg/24 hr Patch 24 Hour 14 mg transdermal DAILY Qty: 30 0RF levofloxacin 750 mg tablet 750 mg PO DAILY Qty: 5 0RF Rx Instructions: Start on 11/03/2024 Continued albuterol sulfate [Ventolin HFA] 1 INHALER inhaler 1 puff inhalation Q6H PRN PRN (Reason: Wheezing) Patient Comments: asthma buspirone 5 mg tablet 5 mg PO TID escitalopram oxalate 20 mg tablet 20 mg PO DAILY zolpidem 5 mg tablet 5 mg PO QHS Referrals / Follow Up: Noni Pablo MD [Primary Care Provider] - Disposition Disposition (needs filled in before D/C Order can be placed): Home, Self Care Charges/Coding Visit Charges Inpatient E&M: 14464 Disch Hosp >30min
--- NOTE | 2024-11-02 11:47 | CHAPLAIN ---
Type of Pastoral Visit _x__ Initial Visit ___ Follow-up Visit ___ On-call Visit ___ General Patient Visit ___ Spiritual Assessment ___ Family Conference ___ Bereavement ___ Rapid Response ___ Code Blue ___ Other (describe below) Pastoral Care Referral From _x__ Patient ___ Family ___ Nurse ___ Physician ___ Community Center Worker ___ Division Chief ___ Other (describe below) Sacrament/Intervention ___ Active listening ___ Anointing ___ Church ___ Bereavement ___ Communion ___ Amie exploration ___ ___ Life review ___ Prayer ___ Reconciliation ___ Sacrament of Sick _x__ Supportive presence ___ Wedding ___ Other (describe below) Pastoral Comments chemical addiction counselor was just leaving room of this patient; entered room and introduced self and role to the patient; pt indicates that she is fine; this cloth finisher offers 'someone to talk to, have sit with you, or to pray with you'; patient states again that she is fine and does not need anything; visit ended
--- NOTE | 2024-11-02 11:55 | CASEMGMT ---
Patient has order for discharge. RN CM in to discuss needs at discharge. Patient denies needs or help at discharge and states that her sister is picking her up. Patient had no further questions or concerns.
--- NOTE | 2024-11-02 14:07 | CASEMGMT ---
Social Work Brittnee did come see pt from [facility] and gave pt information. Pt had informed staff that her sister found her a drug rehab place and is taking her there straight from here when discharged. CHARIS Emery
[2024-11-08 11:08] LABS: HEPATITIS B SURFACE AG Negative (Negative); Hep C Antibodies Reactive (Non Reactive)
== END 2024-11-02 14:15 | disposition home or self-care (01) | DRG 720 ==
PROVIDERS: Admitting Provider Hospitalist; PCP Family Medicine; Visit Provider Internal Medicine
DX: A41.51 Sepsis due to Escherichia coli [E. coli] (principal); E87.0 Hyperosmolality and hypernatremia; F11.10 Opioid abuse, uncomplicated; F39 Unspecified mood [affective] disorder; J45.909 Unspecified asthma, uncomplicated; F17.210 Nicotine dependence, cigarettes, uncomplicated; R53.81 Other malaise; N39.0 Urinary tract infection, site not specified; Z79.51 Long term (current) use of inhaled steroids; Z79.899 Other long term (current) drug therapy; Z59.00 Homelessness unspecified
CPT/HCPCS: 36415; 80048; 80053; 80074; 83036; 83735; 84100; 85025; 93306; 94668; 97162; 97166; 97535; 97802; 99252; 99406; A4216; G0463; J2405